=== PATIENT | female | born 1945 | race Caucasian/White ===

== ENCOUNTER 2022-08-14 22:08 | Outpatient (CLI) | payer MEDICARE, OTHER, SELFPAY ==
--- OUTSIDE RECORDS SUMMARY | 2022-08-16 13:22 | XMS_ITS | Encounter Summary ---
:1945 Author Organization [facility] Address [address] [place] [address] Care Team Providers Name Role Phone Elsewhere, Pcp Primary Care Provider Unavailable Encounter Details Date Type Department Care Team Description 02/15/2021 Clinical Communication Department of Marianela Braden, Dermatology in [place], [place] [address] [facility] [address] [place] [phone] Social History Tobacco Use Types Packs/Day Years [...] Visit Dermatology Marianela Braden M.D. [address] [place], [place] [phone] (Wo rk) documented as of this encounter Visit Diagnoses Not on filedocumented in this encounter Additional Health Concerns Assessment Noted Time PHQ-9 Depression Total Score: 1 12/02/2015 8:50 AM CRANKSHAFT STRAIGHTENER documented as of this encounter Care Teams Machine Boss Relationship Specialty Start Date End Date Elsewhere, Pcp PCP - General Family Medicine 01/30/19 documented as of this encounter
--- OUTSIDE RECORDS SUMMARY | 2022-08-16 13:22 | XMS_ITS | Encounter Summary ---
:1945 Author Organization [facility] Address [address] [place] [address] Care Team Providers Name Role Phone Elsewhere, Pcp Primary Care Provider Unavailable Reason for Referral Outpatient (Routine) - Authorized Specialty Diagnoses / Procedures Referred By Contact Refer red To Contact Dermatology Marianela Braden M.D . [facility] Region [address] [place], [place] [address] Referral ID Status Reason Start Date Expiration Date Visits V isits Requested Authorized [id number] Authorized 06/28/2022 06/27/2025 1 1 Reason for Visit Reason Comments Biopsy Shave left medial calf and r ight medial calf Outpatient (Routine) - Closed Specialty Diagnoses / Procedures Referred By Contact Refer red To Contact Dermatology Diagnoses Tumor Skin Uncertain Behavior Marianela Braden M.D. [facility] Procedures Dermatology misc minor procedure [address] [place] [address] Referral ID Status Reason Start Date Expiration Date Visits Requ ested Visits Authorized [id number] Closed 06/06/2022 06/06/2023 1 1 Encounter Details Date Type Department Care Team Description 06/28/2022 Procedure visit Department of Marianela Braden Tumor Skin Uncertain Dermatology in Tomás Hale M.D. [place], [place] [address] [phone] Social History Tobacco Use Types Packs/Day Years [...] of basal cell carcinoma involving the right protestant, status post Mohs surgery in 2013 doneelsewhere. She denies a personal history for melanoma. Her brother has had melanoma. She uses sunscreen. She denies any new or changing lesions today. MEDICAL HISTORY 1. Right protestant: History of basal cell carcinoma, status post [...] the patient by letter. Patient given pamphlet [id number]. Discussed the risks, benefits, alternatives, and the [...] CDT Left medial calf: Benign lesion letter [place] patient. Please send letter documented in this encounter Plan of Treatment Upcoming Encounters Date Type Specialty Care Team Description 09/27/2022 Office Visit Dermatology Marianela Braden M.D. [address] [place], [place] [phone] (Wo rk) Scheduled Referrals [...] Address City/State/ZIP Code Phon e Number [facility] - [address] [place], [place] [address] [place] [address] [facility] [address] documented in this encounter Visit Diagnoses Diagnosis Tumor Skin Uncertain Behavior documented in this encounter Additional Health Concerns Assessment Noted Time PHQ-9 Depression Total Score: 1 12/02/2015 8:50 AM MACHINE SOLE LEVELER documented as of this encounter Care Teams Naval Special Warfare Medic Relationship Specialty Start Date End Date Elsewhere, Pcp PCP - General Family Medicine 01/30/19 documented as of this encounter
--- OUTSIDE RECORDS SUMMARY | 2022-08-16 13:22 | XMS_ITS | Encounter Summary ---
:1945 Author Organization [facility] Address [address] [place] [address] Care Team Providers Name Role Phone Elsewhere, Pcp Primary Care Provider Unavailable Reason for Visit Reason Comments Follow-up left calf and f/u face lesio ns Outpatient (Routine) - Closed Specialty Diagnoses / Procedures Referred By Contact Refer red To Contact Dermatology Marianela Braden M.D . [facility] Region [address] [place] [address] Referral ID Status Reason Start Date Expiration Date Visits Requ ested Visits Authorized [id number] Closed 05/04/2020 05/04/2021 1 1 Encounter Details Date Type Department Care Team Description 08/18/2020 Office Visit Department of Marianela Braden, Keratosis Actinconstantino (Primary Dx); Dermatology in [place] Cordon Keratosis Seborrheic [place], [place] [address] [phone] Social History Tobacco Use Types Packs/Day Years [...] would like evaluated. MEDICAL HISTORY 1. Right confucianist: Basal cell carcinoma, status post Mohs surgery in June 2013 at [facility]. 2. Negative history for melanoma. 3. History of type 2 diabetes 4. Congestive heart failure ?? FAMILY HISTORY Brother with a history of melanoma ?? OBJECTIVE PHYSICAL EXAMINATION General: Awake, alert, in no acute distress, and with appropriate affect. Skin: Limited skin exam. Examination of the right confucianist reveals no clinical evidence for local recurrence [...] Visit Dermatology Marianela Braden M.D. [address] [place], [place] [phone] (Wo rk) documented as of this encounter Visit Diagnoses Diagnosis Keratosis Actinic - Primary Keratosis Seborrheic documented in this encounter Additional Health Concerns Assessment Noted Time PHQ-9 Depression Total Score: 1 12/02/2015 8:50 AM DIRECTOR OF RESEARCH CENTER documented as of this encounter Care Teams Endless Belt Finisher Relationship Specialty Start Date End Date Elsewhere, Pcp PCP - General Family Medicine 01/30/19 documented as of this encounter
--- OUTSIDE RECORDS SUMMARY | 2022-08-16 13:22 | XMS_ITS | Encounter Summary ---
:1945 Author Organization [facility] Address [address] [place] [address] Care Team Providers Name Role Phone Elsewhere, [...] Visit Dermatology Marianela Braden M.D. [address] [place], [place] [phone] (Wo rk) documented as [...] Depression Total Score: 1 12/02/2015 8:50 AM JAVA DEVELOPER ANALYST documented as of this encounter Care Teams Certified Histologic Technician Relationship Specialty Start Date End Date Elsewhere, Pcp PCP - General Family Medicine 01/30/19 documented as of this encounter
--- OUTSIDE RECORDS SUMMARY | 2022-08-16 13:22 | XMS_ITS | Encounter Summary ---
:1945 Author Organization [facility] Address [address] [place] [address] Care Team Providers Name Role Phone Elsewhere, Pcp Primary Care Provider Unavailable Reason for Visit Reason Comments Follow-up Appointment Request (Routine) - Closed Specialty Diagnoses / Procedures Referred By Contact Refer red To Contact Referral ID Status Reason Start Date Expiration Date Visits Requ ested Visits Authorized [id number] Closed 06/21/2021 06/21/2022 1 1 Encounter Details Date Type Department Care Team Description 09/13/2021 Office Visit Department of Marianela Braden, Keratosis Actinic (Primary Dx); Dermatology in [place], [place] [address] [phone] Social History Tobacco Use Types Packs/Day Years [...] of basal cell carcinoma involving the right oriental orthodox,??status post Mohs surgery in 2013 done elsewhere. She denies a personal history for melanoma. Her brother has had melanoma.She uses sunscreen. MEDICAL HISTORY 1. Right oriental orthodox:??History of basal cell carcinoma,??status post Mohs surgery [...] 1left upper cheek Examination of the right oriental orthodox reveals no evidence for recurrence of basal [...] diuretic. Follow up as needed. #5 Right oriental orthodox:??History of basal cell carcinoma,??status post Mohs surgery [...] Electronically Signed: nay Virk. 09/13/2021. 11:12 AM PONY TRIMMER. IMarianela M.D., personally performed the services described in this documentation. All medical record entries made by the scribe were at my direction and in my presence. I have reviewed the chart and discharge instructions (if applicable) and agree that the record reflects my personal performance and is accurate and complete. Marianela Braden M.D. TRIMMER documented in this encounter Plan of Treatment Upcoming Encounters Date Type Specialty Care Team Description 09/27/2022 Office Visit Dermatology Marianela Braden M.D. [address] [place] [phone] (Wo rk) documented as of this encounter Visit Diagnoses Diagnosis Keratosis Actinic - Primary Milia documented in this encounter Additional Health Concerns Assessment Noted Time PHQ-9 Depression Total Score: 1 12/02/2015 8:50 AM PONY TRIMMER documented as of this encounter Care Teams Property Field Adjuster Relationship Specialty Start Date End Date Elsewhere, Pcp PCP - General Family Medicine 01/30/19 documented as of this encounter
--- OUTSIDE RECORDS SUMMARY | 2022-08-16 13:22 | XMS_ITS | Encounter Summary ---
:1945 Author Organization [facility] Address [address] [place] [address] Care Team Providers Name Role Phone Elsewhere, Pcp Primary Care Provider Unavailable Reason for Visit Reason Comments Skin Check Appointment Request (Routine) - Closed Specialty Diagnoses / Procedures Referred By Contact Refer red To Contact Dermatology Referral ID Status Reason Start Date Expiration Date Visits Requ ested Visits Authorized [id number] Closed 11/24/2020 11/24/2021 1 1 Encounter Details Date Type Department Care Team Description 02/15/2021 Office Visit Department of Marianela Braden, Keratosis Actinic (Primary Dx); Dermatology in [place], [place] [address] [facility] Keratosis Seborrheic [address] [place] [phone] Social History Tobacco Use Types Packs/Day Years [...] of basal cell carcinoma involving the right hindu, status post Mohs surgery in June 2013 at [facility]. The patient denies a personal history [...] nose, itchy eyes MEDICAL HISTORY 1. Right hindu: Basal cell carcinoma, status post Mohs surgery in June 2013 at [facility]. 2. Negative history for melanoma. 3. [...] full exam today. Examination of the right hindu reveals no clinical evidence for local recurrence [...] skin cancer. ASSESSMENT / PLAN #1 Right hindu: Basal cell carcinoma, status post Mohs surgery in June 2013 at [facility], norecurrence Examination today reveals no clinical [...] Visit Dermatology Marianela Braden M.D. 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
--- OUTSIDE RECORDS SUMMARY | 2022-08-16 13:22 | XMS_ITS | Clinical Summary ---
:1945 Author Organization [facility] [place] [address] Care Team Providers Name Role Phone Ashutosh Gonzales MD Primary Care Provider [phone] Qiana Huntley RN Unavailable Karrie Duarte RD Unavailable Allergies Active Allergy Reactions Severity Noted Date Comments Cat Dander Other - Describe In 02/05/2018 Comment Field Losartan Other - Describe In 07/28/2022 Increase d Creatinine and Comment Field potassium Medications Medication Sig Dispensed Refills Start End Date Status Date Vit Take 1 tablet 90 Cap 3 Active A,C,Q-Loci-Voyqei twice daily 7 (PRESERVISION AREDS) [phone] cap medication order Calcium 0 Act 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 states no tabletIndications: l onger Vitamin B12 taking/N ot on deficiency sending facility l ist) omeprazole Take 1 Capsule 90 Capsule 3 07/28/20 Dis continued (PRILOSEC) 20 mg (20 mg) by mouth 2 (*Med Delayed-Release once daily com plete/Regime capsuleIndications [...] Encounters Date Type Specialty Care Team Description 08/16/2022 Ancillary Procedure Arrived 08/16/2022 Ancillary Procedure Arrived 08/16/2022 Office Visit Ashutosh Gonzales Fall (2021, MD Giovanna fractured nose, bruised and swollen kne tan); Concerns (Discu ss CT of head for bleedi ng on brain, US of lo wer left leg for DVT) 08/16/2022 Travel 08/15/2022 Telephone Ashutosh Gonzales Error-pleas e disregard MD Giovanna 08/15/2022 Telephone Ashutosh Gonzales Questions MD Giovanna 07/28/2022 Office Visit Ashutosh Gonzales Medicare AN SHELIA Heredia MD (subsequent) Vi sit (76 year old); Medi cation Management (Dis cuss fluvoxamine) 07/28/2022 Travel 06/06/2022 Refill Ashutosh Gonzales Refill Requ est MD Giovanna (Amlodipine Bes ylate 2.5 ) from Last 3 Months Immunizations Name Administration Dates Next Due AMB Influenza, IIV3 (Age >=3 years)(Flu 08/25/2010 Clinic Only) COVID-19 vaccine ([employer] 01/16/2021, 12/26/2020 30mcg/0.3mL) PF, MDV Influenza A (H1N1), Inactivated (Age >=3 10/28/2009 Years) Influenza Virus, Unspecified 07/21/2016 Influenza, High-dose Quadrivalent 08/03/2022, 07/24/2021 Inactivated Influenza, IIV3 (Age >=3 years) 08/05/2009, 08/11/2008, [...] Status Comments Brother Alive Father (Age 50) [place] Mother Alive Social History Tobacco Use Types [...] in contact with No / Unsu re 08/16/2022 9:42 AM CDT someone who was confirmed or suspected to have Coronavirus/COVID-19? Obstetrics History Para Term AB IAB SAB Ectopic Multiple Living Live Births 2 2 2 Date Outcome GA Total Labor/2nd/3rd Weight Sex Delivery Anes PTL Michelle A 1 A5 Name Clin Labor Para Para Last Filed Vital Signs Vital Sign Reading Time Taken Comments Blood Pressure 164/83 08/16/2022 9:48 AM CDT Pulse 88 08/16/2022 9:48 AM CDT Temperature 36.8 ??C (98.2 ??F) 02/04/2022 2:59 PM CDT Respiratory Rate 16 02/04/2022 2:59 PM CDT Oxygen Saturation 98% 08/16/2022 9:48 AM CDT Inhaled Oxygen Concentration - - Weight 90 kg (198 lb 6.4 oz) 08/16/2022 9:48 AM CDT Height 159.9 cm (5' 2.95) 07/28/2022 8:36 AM CDT Body Mass Index 35.2 07/28/2022 8:36 AM CDT Plan of Treatment Upcoming Encounters Date Type Specialty Care Team Description 09/07/2022 Orders Only Lab, [place] 09/07/2022 Office Visit Ashutosh Gonzales MD [address] [facility] [place] [id number] (Wo rk) 09/07/2022 Ancillary Procedure Health Maintenance Due Date Last Done Comments BMI (ht and wt on same day) for 07/28/2023 07/28/2022, 12/2021, age 18+ 02/04/2022, Additional history exists Depression screening for age 12+ 07/28/2023 07/28/2022, 01/2022, 03/07/2022, Additional history exists Medicare Wellness for age 65+ 07/28/2023 07/28/2022, 2021, 07/10/2020, Additional history exists Tetanus booster 08/07/2030 08/07/2020, 09/07/2010, 04/12/2004 Pneumococcal series for age 65+ Completed 10/08/2014, 07/2014, 05/04/2011, Additional history exists Zoster (shingles) series for age Completed 03/30/2018, 11/2017, 50+ 01/23/2014, Additional history exists DEXA/DXA scan for age 65+ Completed 06/20/2019, 06/17/2011 Hepatitis C screening for age Completed 07/10/2020 18-79 Tdap Completed 08/07/2020, 09/07/2010 COVID-19 vaccine series Completed 07/16/2022, 02/18/2022, 08/05/2021, Additional history exists Influenza for age 65+ Completed 08/03/2022, 07/24/2021, 07/10/2020, Additional history exists Procedures Procedure Name Priority Date/Time Associated Diagnosis Comme nts US VENOUS LOWER STAT 08/16/2022 11:08 AM Left leg swelling Results for this EXTREMITY LEFT CDT procedure are in the results section. from Last 3 Months Results US VENOUS LOWER EXTREMITY LEFT (08/16/2022 11:08 AM CDT) Anatomical Region Laterality Modality LEGS, LEG L, Abdomen Ultrasound Specimen (Source) Anatomical Collection Method Collection Time Re ceived Time Location / / Volume Laterality 08/16/2022 12:45 PM CDT Impressions 08/16/2022 12:45 PM CDT Normal venous ultrasound exam. No evidence of deep vein thrombosis within the left lower extremity. Dictated by Naren Doshi MD @ Aug 16 2 022 12:45PM (Electronically Signed) ?? Narrative 08/16/2022 12:45 PM CDT For Patients: ??As a result of the Cures Act, medical imaging exams and procedure report s are released immediately into your [facility] medical record. ??You may view this report before your referring provider. ??If you have questions, please contact your health care provider. INDICATION: Swelling COMPARISON: 12/04/19 TECHNIQUE: A compression venous ultrasound exam was performed of the left lower extremity using tolbert-scale imaging, color Doppler and spectral Doppler analysis. FINDINGS: Sonographic imaging of the left lower ex tremity demonstrates normal compressibility and color Doppler venous blood flow within the common femoral vein, deep femoral vein, and the proximal greater saphen ous vein. Within the thigh, the femoral vein is patent and compressible. At a lower level, the popliteal and posterior tibial veins also show normal compressibility and color Doppler venous blood flow. Limited imaging of the contralateral toribio in demonstrates a normal spectral waveform and color Doppler venous blood flow within the right common femoral vein. ?? Procedure Note Naren Doshi MD - 08/16/2022For matting of this note might be different from the original. For Patients: As a result of the Cures Act, medical imaging exams and procedure reports are released immediately into your electronic medical record. You may view this report before your referring provider. If you have questions, please contact [facility] health care provider. INDICATION: Swelling COMPARISON: 12/04/19 TECHNIQUE: A compression venous ultrasound exam was performed of the left lower extremity using tolbert-scale imaging, color Doppler and spectral Doppler analysis. FINDINGS: Sonographic imaging of the left lower ex tremity demonstrates normal compressibility and color Doppler venous blood flow within the common femoral vein, deep femoral vein, and the proximal greater saphenous vein. Within the thigh, the femoral vein is pa tent and compressible. At a lower level, the popliteal and posterior tibial veins also show normal compressibility and color Doppler venous blood flow. Limited imaging of the contralateral toribio in demonstrates a normal spectral waveform and color Doppler venous blood flow within the right common femoral vein. IMPRESSION: Normal venous ultrasound exam. No eviden ce of deep vein thrombosis within the left lower extremity. Dictated by Naren Doshi MD @ Aug 16 12:45PM (Electronically Signed) Ashutosh Gonzales MD US from Last 3 Months Insurance Payer Benefit Plan / Subscriber ID Effective Dates Phone Addre ss Type Group MEDICARE PART B MEDICARE PART B [id number] 2010-Present ATTN: CLAIMS - HB USE ONLY HB ONLY [id number] MEDICARE PART A MEDICARE PART A [id number] 2010-Present ATTN: CLAIMS - HB USE ONLY HB ONLY [address] [place] [address] MEDICARE - PB MEDICARE PB [id number] 2010-Present ATT N: CLAIMS USE ONLY ONLY [address] [place] [address] PREFERRED ONE AETNA [id number] 2018-Present [id number] [place] [address] Advance Directives Documents on File Type Date Recorded Patient Multiple Effect Evaporator Operator Explanati on Healthcare Directive 05/02/2013 12:00 AM ADVANCE DIRECTIVE Latest Code Status on File Code Status Date Activated Date Inactivated Comments Full Code 03/06/2014 7:28 PM 03/09/2014 5:42 PM Care Teams Senior Network Administrator Relationship Specialty Start Date End Date Ashutosh Gonzales, PCP - General Family Practice 07/21/[address] [address] Qiana Huntley, peoplesoft financial developer 12/31/20 [address] [place] [address] Machine Plate Stacker Anchorer 12/31/[address] [place] [address] [place] [phone]
--- OUTSIDE RECORDS SUMMARY | 2022-08-16 13:22 | XMS_ITS | Encounter Summary ---
:1945 Author Organization [facility] Address [address] [place] [address] Care Team Providers Name Role Phone Elsewhere, [...] Visit Dermatology Marianela Braden M.D. [address] [place], [place] [phone] (Wo rk) documented as [...] Depression Total Score: 1 12/02/2015 8:50 AM BACK END ENGINEER documented as of this encounter Care Teams Heat Reader Relationship Specialty Start Date End Date Elsewhere, Pcp PCP - General Family Medicine 01/30/19 documented as of this encounter
--- OUTSIDE RECORDS SUMMARY | 2022-08-16 13:22 | XMS_ITS | Encounter Summary ---
:1945 Author Organization [facility] Address [address] [place] [address] Care Team Providers Name Role Phone Elsewhere, [...] Visit Dermatology Marianela Braden M.D. [address] [place], [place] [phone] (Wo rk) documented as [...] Depression Total Score: 1 12/02/2015 8:50 AM MEDIA ARTS PROFESSOR documented as of this encounter Care Teams Systems Support Officer Relationship Specialty Start Date End Date Elsewhere, Pcp PCP - General Family Medicine 01/30/19 documented as of this encounter
--- OUTSIDE RECORDS SUMMARY | 2022-08-16 13:22 | XMS_ITS | Encounter Summary ---
:1945 Author Organization [facility] Address [address] [place] [address] Care Team Providers Name Role Phone Elsewhere, Pcp Primary Care Provider Unavailable Reason for Referral Outpatient (Routine) - Closed Specialty Diagnoses / Procedures Referred By Contact Refer red To Contact Dermatology Diagnoses Tumor Skin Uncertain Behavior Marianela Braden M.D. [facility] Region Procedures Dermatology misc minor procedure [address] [place] [address] Referral ID Status Reason Start Date Expiration Date Visits Requ ested Visits Authorized [id number] Closed 06/06/2022 06/06/2023 1 1 Reason for Visit Reason Comments Follow-up Encounter Details Date Type Department Care Team Description 06/06/2022 Office Visit Department of Marianela Braden, Tumor Skin Uncertain Behavior (Primary Dx); Dermatology in [place] Keratosis Actinic; [place], [place] [address] [facility] Nevi Multiple; [address] [place] [address] [place] [phone] Social History Tobacco Use Types Packs/Day Years [...] of basal cell carcinoma involving the right druze, status post Mohs surgery in 2013 done elsewhere. She denies a personal history for melanoma. Her brother has had melanoma. She uses sunscreen. She denies any new or changing lesions today. MEDICAL HISTORY 1. Right druze: History of basal cell carcinoma, status post [...] extremities. My scribe (Zofia) served as a director [employer] for the entirety of the exam. Examination of the right druze reveals no evidence for recurrence of basal [...] immediate return visit for reassessment. #5 Right druze: History of basal cell carcinoma, status post [...] By signing my name below, I, Zofia Shcmitz, attest that this documentation has been prepared [...] Visit Dermatology Marianela Braden M.D. [address] [place], [place] [phone] (Wo rk) Scheduled Orders [...] Depression Total Score: 1 12/02/2015 8:50 AM STILL CLEANER TUBE documented as of this encounter Care Teams Paddle Dyeing Machine Operator Relationship Specialty Start Date End Date Elsewhere, Pcp PCP - General Family Medicine 01/30/19 documented as of this encounter
--- OUTSIDE RECORDS SUMMARY | 2022-08-16 13:22 | XMS_ITS | Clinical Summary ---
:1945 Author Organization [facility] Address [address] [place] [address] Care Team Providers Name Role Phone Elsewhere, Pcp Primary Care Provider Unavailable Source Comments Patient records contain information from all sites at [facility]. For routine questions regarding patient records, call [phone] during business hours, M-F 8:00 AM - 5:00 PM Central Time. Record requests for emergency care only can be directed to [phone] at any time.[facility] Allergies Active Allergy Reactions Severity Noted Date [...] Visit Dermatology Marianela Braden M.D. [address] [place] [phone] (Wo rk) Health Maintenance Due Date [...] Organization Address City/State/ZIP Code Phon e Number [facility] NA Dermatopathology Consult (06/28/2022 9:49 AM CDT) [...] City/State/ZIP Code Phon e Number [facility] - [address] [place], [place] [address] [facility] [place] [address] [facility] [address] from Last 3 Months Insurance Payer Benefit Plan / Subscriber ID Effective Phone Address T ype Group Dates MEDICARE MEDICARE A AND B [id number] 2010-Prese [address] [place] [address] AETNA AETNA [id number] 2018-Prese [phone] [address] [place] [place] [id number] [place] [address] (Work) [phone] Care Teams Health Associate Relationship Specialty Start Date End Date Elsewhere, Pcp PCP - General Family Medicine 01/30/19
--- OUTSIDE RECORDS SUMMARY | 2022-08-16 13:22 | XMS_ITS | Encounter Summary ---
:1945 Author Organization [facility] Address [address] [place] [address] Care Team Providers Name Role Phone Elsewhere, [...] Visit Dermatology Marianela Braden M.D. [address] [place], [place] [phone] (Wo rk) documented as [...] Depression Total Score: 1 12/02/2015 8:50 AM ORTHOPTIST documented as of this encounter Care Teams Childcare Center Administrator Relationship Specialty Start Date End Date Elsewhere, Pcp PCP - General Family Medicine 01/30/19 documented as of this encounter
--- OUTSIDE RECORDS SUMMARY | 2022-08-16 13:23 | XMS_ITS | Encounter Summary ---
:1945 Author Organization [facility] Address [address] [place] [address] Care Team Providers Name Role Phone Naren Kruger M.D. Primary Care Provider Encounter Details Date Type Department Care Team Description 06/28/2017 Hospital Encounter HX [facility] Jairo Kruger M.D. [address] [place] [phone] (Wo yajaira) Social History Tobacco [...] Visit Dermatology Marianela Braden M.D. [address] [place], [place] [phone] (Wo rk) documented as of this encounter Visit Diagnoses Not on filedocumented in this encounter Additional Health Concerns Assessment Noted Time PHQ-9 Depression Total Score: 1 12/02/2015 8:50 AM CHIPPING MACHINE OPERATOR documented as of this encounter Care Teams Jockey Room Custodian Relationship Specialty Start Date End Date Naren Kruger M.D. PCP - General 04/20/17 06/28/[address] [place] [phone] documented as of this encounter
--- OUTSIDE RECORDS SUMMARY | 2022-08-16 13:23 | XMS_ITS | Encounter Summary ---
:1945 Author Organization [facility] Address [address] [place] [address] Care Team Providers Name Role Phone Elsewhere, Pcp Primary Care Provider Unavailable Reason for Visit Reason Comments Follow-up Encounter Details Date Type Department Care Team Description 03/04/2019 Office Visit Department of Marianela Braden, Tumor Skin Uncertain Behavior (Primary Dx); Dermatology in [place]; [place], [place] [address] [facility] Cancer Skin Basal Cell Personal History [address] [place] [phone] Social History Tobacco Use Types Packs/Day Years Used Date Smoking Tobacco: Unknown Smokeless Tobacco: Never Sex Assigned at Date Recorded Not on file documented as of this encounter Progress Notes Marainela Braden M.D. - 03/04/2019 11:00 AM CDT CHIEF COMPLAINT Lesion involving nasal tip HISTORY OF THE PRESENT ILLNESS Jessica Meek is a pleasant 73 y.o. female who follows up for evaluation of a rough lesion involving the nasal tip. She first noticed it in October 2018 and it has not bled. The patient has a history of basal cell carcinoma involving her right anabaptism status post Mohs surgery at [facility] in June 2013. She denies a personal history of melanoma. Her brother has a history of melanoma. PAST MEDICAL HISTORY 1. Basal cell carcinoma involving her right anabaptism status post Mohs surgery at [facility] in June 2013 FAMILY HISTORY Brother has history of melanoma PHYSICAL EXAM General: Awake, alert, in no acute distress, and with appropriate affect. Skin: Examination of the right anabaptism reveals excision scar with no evidence of recurrence of basal cell carcinoma. Just adjacent to this there is a seborrheic keratosis versus verrucal keratosis. Examination of the left anabaptism reveals actinic keratoses x 2. Examination of [...] the patient by letter. Patient given pamphlet [id number]. Discussed the risks, benefits, alternatives, and the necessity of other members of the healthcare team participating in the procedure. All questions answered and consent given. #2 Left anabaptism: Actinic keratosis x 2 CONSENT Discussed the [...] a total of 2 lesion(s) with two 29-88-ovrjno freeze-thaw cycles of liquid nitrogen cryothe rapy. The patient tolerated the procedure well. Aftercare instructions were provided in written and verbal form to the patient. Should any of these lesions recur, the patient should return for biopsy or further evaluation. Follow up in 1-2 months for recheck if these do not completely resolve. #3 Right anabaptism: History of basal cell carcinoma status post [...] - 03/04/2019 11:00 AM CDT Benign lesion. Bryant patient. please send letter documented in this encounter Plan of Treatment Upcoming Encounters Date Type Specialty Care Team Description 09/27/2022 Office Visit Dermatology Marianela Braden M.D. [address] [place], [place] [phone] (Wo rk) documented as of this encounter Procedures Procedure Name Priority Date/Time Associated Comments Diagnosis DERMATOPATHOLOGY CONSULT Routine 03/04/2019 11:11 Tumor Skin Results for this AM CDT Uncertain Behavior procedure are in the results section. documented in this encounter Results Dermatopathology Consult (03/04/2019 11:11 AM CDT) Component Value Ref Test Analysis Performed At [facility] Method Time Signature Gross Received in formalin labeled with the patient's name, 03/11/2019 [facility] Description: medical record number, and nasal tip is a 0.5 x 0.2 x 0.1 4:31 PM CDT LABORATORIES - cm pale [place] previously inked skin shave biopsy. No discrete [facility] lesion is grossly identified on the skin surface. The [place] specimen is submitted en toto in cassette A1. Grossed by [facility]. Report Fidelina N. 03/11/2019 [facility] electronically Neris Norton 4:31 PM CDT LABORATOR IES - signed by [facility] 03/11/2019 [facility] 4:31 PM CDT LABORATORIES - [facility] Interpetation FINAL DIAGNOSIS 03/11/2019 [facility] ??DermPath Consult Wet Tissue; Nasal tip, Skin shave 4:31 PM CDT LABORATORIES - biopsy: ??Dilated telangiectasias; no tumor identified after [facility] multiple tissue levels examined CAMPUS Specimen Anatomical Collection Method Collection Time Receive d Time (Source) Location / / Volume Laterality Tissue 03/04/2019 11:11 03/05/2019 7:42 AM CDT AM CDT Narrative This result has an attachment that is no t available. Marianela Braden M.D. LAB PATH DERM ORDERABLES Performing Organization Address City/State/ZIP Code Phon e Number [facility] LABORATORIES - [address] documented in this encounter Visit Diagnoses [...] Depression Total Score: 1 12/02/2015 8:50 AM CLAIM INVESTIGATOR documented as of this encounter Care Teams Maker Up Folding Relationship Specialty Start Date End Date Elsewhere, Pcp PCP - General Family Medicine 01/30/19 documented as of this encounter
--- OUTSIDE RECORDS SUMMARY | 2022-08-16 13:23 | XMS_ITS | Encounter Summary ---
:1945 Author Organization [facility] Address [address] [place] [address] Care Team Providers Name Role Phone Elsewhere, Pcp Primary Care Provider Unavailable Reason for Referral Outpatient (Routine) - Closed Specialty Diagnoses / Procedures Referred By Contact Refer red To Contact Dermatology Marianela Braden M.D . [facility] Region [address] [place] [address] Referral ID Status Reason Start Date Expiration Date Visits Requ ested Visits Authorized [id number] Closed 05/04/2020 05/04/2021 1 1 Scheduling Instructions Recheck lesion involving left lower leg Reason for Visit Reason Comments Follow-up Appointment Request (Routine) - Closed Specialty Diagnoses / Procedures Referred By Contact Refer red To Contact Dermatology Referral ID Status Reason Start Date Expiration Date Visits Requ ested Visits Authorized [id number] Closed 11/11/2019 11/10/2020 1 Encounter Details Date Type Department Care Team Description 05/04/2020 Office Visit Department of Marianela Braden, Keratosis Actinic (Primary Dx); Dermatology in [place] [facility] Seborrheic; [place], [place] [address] [facility] Verrucal Keratosis [address] [place] [phone] Social History Tobacco Use Types Packs/Day Years [...] carcinoma status post Mohs surgery fromher right religion in June 2013 at [facility]. She denies any history for melanoma. Her brother has had melanoma. Allergies Allergen Reactions ??? Cat Dander Other (see comments) Runny nose itchy eyes ??? Pollen Extracts Other (see comments) Runny nose, itchy eyes MEDICAL HISTORY Basal cell carcinoma involving right religion status post Mohs surgery in June 2013 at [facility]. Negative history for melanoma. FAMILY HISTORY Positive family history for melanoma with brother having had melanoma OBJECTIVE PHYSICAL EXAMINATION General: Awake, alert, in no acute distress, and with appropriate affect. Skin: Examination of her face and left lower leg done in clinic today. Examination of her right religion reveals no evidence for recurrence of her [...] Visit Dermatology Marianela Braden M.D. [address] [place] [phone] (Wo rk) Scheduled Referrals Name Type Priority Associated Order Schedule Diagnoses Dermatology office Outpatient Referral Routine Ex pected: visit (clinic) 08/04/2020 (Approximate), Expires: 05/04/2023 documented as of this encounter Visit Diagnoses Diagnosis Keratosis Actinic - Primary Keratosis Seborrheic Verrucal Keratosis documented in this encounter Additional Health Concerns Assessment Noted Time PHQ-9 Depression Total Score: 1 12/02/2015 8:50 AM FORGE HELPER documented as of this encounter Care Teams Architectural Drafter Relationship Specialty Start Date End Date Elsewhere, Pcp PCP - General Family Medicine 01/30/19 documented as of this encounter
--- OUTSIDE RECORDS SUMMARY | 2022-08-16 13:23 | XMS_ITS | Encounter Summary ---
:1945 Author Organization [facility] Address [address] [place] [address] Care Team Providers Name Role Phone Brandin Kruger M.D. Primary Care Provider Encounter Details Date Type Department Care Team Description 06/05/2017 Hospital Encounter [facility]X [facility]ED Jairo Kruger M.D. [address] [place] [address] 021 (Wo rk) Social History Tobacco Use [...] Kruger M.D. - 06/05/2017 2:13 PM CDT [id number] CHIEF COMPLAINT/REASON FOR VISIT Disequilibrium. The patient [...] KRUGER MD On: 06/05/2017 03:37 PM Source: [facility] MHSDOLBEYNONRADSYS Document Id: [id number] documented in this encounter Miscellaneous Notes Miscellaneous - Brandin Kruger M.D. - 06/05/2017 2:42 PM CDT Ambulatory Patient Summary [address] [id number] Visit Information Name: FRANCES HAGER [facility] Number: [id number] Current Date: 06/05/2017 14:42:39 Physicians [...] if you dont have one. Go to [email or web address] and click on Create Your Account. Then, follow the directions to complete the online form. Youll be asked for your [facility] number which you can find at the top of this document. Your Goals/Additional instructions: Source: [facility] POWERCHART Document Id: [id number] Miscellaneous - Brandin Kruger M.D. - 06/05/2017 2:42 PM CDT Ambulatory Discharge Medication List [address] [id number] Visit Information Name: FRANCES HAGER [facility] Number: [id number] Current Date: 06/05/2017 14:42:38 Attending [...] MD Signed On:05-JUN-2017 14:41:33 Additional Information: Source: [facility] POWERCHART Document Id: [id number] Miscellaneous - Jacque Agee C.M.A. - 06/05/2017 2:26 PM CDT Adult Fire Alarm Operator Intake/History Adult Fire Alarm Operator Intake/History Entered On: 06/05/2017 14:29 CDT Performed On: 06/05/2017 14:26 CDT by JACQUE AGEE [facility] Intake Chief Complaint : 1: balance follow [...] Mass Index : 38.55 kg/m2 JACQUE AGEE [facility] - 06/05/2017 14:26 CDT General Info Information Given By : Patient Languages : Persian Is Patient Female and 13-50 no hysterectomy : No JACQUE AGEE [facility] ASSISTANT - 06/05/2017 14:26 CDT Subjective Pain Symptoms : Yes JACQUE AGEE [facility] - 06/05/2017 14:26 CDT Pain Scale Pain Scale Verbal 0-10 : Open JACQUE AGEE [facility] - 06/05/2017 14:26 CDT Pain Pain Assessment Grid Pain 1 Location : Lower back Laterality : Bilateral JACQUE AGEE [facility] - 06/05/2017 14:26 CDT Dependent Habits Exposure to Tobacco Smoke : Other: former smoker Smoking Status : Former smoker Tobacco 2A : Yes Tobacco Use/Currently Using : No Tobacco Use/Last 30 Days : No Tobacco Use/Last 12 months : No JACQUE AGEE CMA - 06/05/2017 14:26 CDT Caffeine Use Grid Caffeine Use : Current Type : Coffee JACQUE AGEE [facility] - 06/05/2017 14:26 CDT Recreational Drug Use Grid Drug Use : None JACQUE AGEE CMA - 06/05/2017 14:26 CDT [facility] POWERCHART Document Id: [id number] CDT!44 documented in this encounter Plan of Treatment Upcoming Encounters Date Type Specialty Care Team Description 09/27/2022 Office Visit Dermatology Marianela Braden M.D. [address] [place], [place] [phone] (Wo rk) documented as of this encounter Visit Diagnoses Not on filedocumented in this encounter Additional Health Concerns Assessment Noted Time PHQ-9 Depression Total Score: 1 12/02/2015 8:50 AM BLOWER ROOM ATTENDANT documented as of this encounter Care Teams 3D Artist Relationship Specialty Start Date End Date Brandin Kruger M.D. PCP - General 04/20/17 06/28/[address] [place] [phone] documented as of this encounter
--- OUTSIDE RECORDS SUMMARY | 2022-08-16 13:23 | XMS_ITS | Encounter Summary ---
:1945 Author Organization [facility] Address [address] [place] [address] Care Team Providers Name Role Phone Elsewhere, [...] Visit Dermatology Marianela Braden M.D. [address] [place], [place] [phone] (Wo rk) documented as [...] Depression Total Score: 1 12/02/2015 8:50 AM PEDIATRIC PATHOLOGIST documented as of this encounter Care Teams Instrumentation Designer Relationship Specialty Start Date End Date Elsewhere, Pcp PCP - General Family Medicine 01/30/19 documented as of this encounter
--- OUTSIDE RECORDS SUMMARY | 2022-08-16 13:23 | XMS_ITS | Encounter Summary ---
:1945 Author Organization [facility] Address [address] [place] [address] Care Team Providers Name Role Phone Naren Kruger M.D. Primary Care Provider Encounter Details Date Type Department Care Team Description 06/28/2017 Hospital Encounter HX [facility] LAB Jairo Kruger M.D. [address] [place] [phone] (Wo yajaira) Social History Tobacco [...] Visit Dermatology Marianela Braden M.D. [address] [place], [place] [phone] (Wo rk) documented as of this encounter Visit Diagnoses Not on filedocumented in this encounter Additional Health Concerns Assessment Noted Time PHQ-9 Depression Total Score: 1 12/02/2015 8:50 AM RAND BUTTER documented as of this encounter Care Teams Certified Neurodiagnostic Technologist Relationship Specialty Start Date End Date Naren Kruger M.D. PCP - General 04/20/17 06/28/[address] [place] [address] documented as of this encounter
--- OUTSIDE RECORDS SUMMARY | 2022-08-16 13:23 | XMS_ITS | Encounter Summary ---
:1945 Author Organization [facility] Address [address] [place] [address] Care Team Providers Name Role Phone Elsewhere, Pcp Primary Care Provider Unavailable Reason for Referral Outpatient (Routine) - Closed Specialty Diagnoses / Procedures Referred By Contact Refer red To Contact Dermatology Marianela Braden M.D . [facility] Region [address] [place] [address] Referral ID Status Reason Start Date Expiration Date Visits Requ ested Visits Authorized [id number] Closed 07/29/2019 07/28/2020 1 1 Scheduling Instructions Recheck skin lesions in 3 months Reason for Visit Reason Comments Follow-up Appointment Request (Routine) - Closed Specialty Diagnoses / Procedures Referred By Contact Refer red To Contact Dermatology Referral ID Status Reason Start Date Expiration Date Visits Requ ested Visits Authorized [id number] Closed 04/30/2019 04/29/2020 1 Encounter Details Date Type Department Care Team Description 07/29/2019 Office Visit Department of Marianela Braden Nevi Multi ple (Primary Dx); Dermatology in [place]; [place], [place] [address] [facility] Keratosis Seborrheic; [address] [place] [address] Keratosis Seborrheic Inflame d; [place] [address] Cancer Skin Basal Cell Personal History [phone] [...] liquid nitrogen cryotherapy by Dr. Fletcher at [facility] on 05/15/19. She says this has resolved since then. The patient is also here today for a full skin cancer screening examination. When last seen by me on03/04/19, she had a shave biopsy of a lesion involving the distal nasal tip which came back as dilated telangiectasias. Back in January 2016, she also had a biopsy done at the [facility] for a lesion involving the left lower leg which was a verrucal keratosis. The patient has??a history of??basal cell carcinoma involving her right restoration status post Mohs surgery at [facility] in June 2013. She denies a personal history of melanoma. Her brother has a history of melanoma. Allergies Allergen Reactions ??? Cat Dander Other (see comments) Runny nose itchy eyes ??? Pollen Extracts Other (see comments) Runny nose, itchy eyes PAST MEDICAL HISTORY 1. Basal cell carcinoma involving right restoration, status post Mohs surgery at [facility] in June2013 2. Negative for melanoma [...] for actinic keratosis. Examination of the right restoration reveals no evidence for recurrence of basal [...] a return visit for reassessment. #5 Right restoration: History of basal cell carcinoma, status post Mohs surgery at [facility] in June 2013 No evidence for [...] Visit Dermatology Marianela Braden M.D. [address] [place], [place] [phone] (Wo rk) Scheduled Referrals [...] Depression Total Score: 1 12/02/2015 8:50 AM TOW FEEDER documented as of this encounter Care Teams Special Education Associate Relationship Specialty Start Date End Date Elsewhere, Pcp PCP - General Family Medicine 01/30/19 documented as of this encounter
--- OUTSIDE RECORDS SUMMARY | 2022-08-16 13:23 | XMS_ITS | Encounter Summary ---
:1945 Author Organization [facility] Address [address] [place] [address] Care Team Providers Name Role Phone Naren Kruger M.D. Primary Care Provider Reason for Referral Outpatient (Routine) - Closed Specialty Diagnoses / Procedures Referred By Contact Refer red To Contact Neurology Naren Kruger M .D. [address] [place] [address] Referral ID Status Reason Start Date Expiration Date Visits V isits Requested Authorized [id number] Closed Specialty 09/05/2017 03/04/2018 1 1 Services Required Encounter Details Date Type Department Care Team Description 09/05/2017 Orders Only Department of [facility] Naren Kruger , Internal Medicine in [place], [place] [address] [place] [address] [place] [address] [phone] Social History Tobacco Use Types Packs/Day Years Used Date Smoking Tobacco: Former Sex Assigned at Date Recorded Not on file documented as of this encounter Plan of Treatment Upcoming Encounters Date Type Specialty Care Team Description 09/27/2022 Office Visit Dermatology Marianela Braden M.D. [address] [place], [place] [phone] (Wo rk) Scheduled Referrals Name Type Priority Associated Diagnoses Order S chedule Neurology - General Outpatient Referral Routine E xpected: consult (clinic) 08/30/2017 (Approximate), Expires: 09/03/2022 documented as of this encounter Visit Diagnoses Not on filedocumented in this encounter Additional Health Concerns Assessment Noted Time PHQ-9 Depression Total Score: 1 12/02/2015 8:50 AM ORACLE TECHNICAL DEVELOPER documented as of this encounter Care Teams Wire Harness Design Engineer Relationship Specialty Start Date End Date Naren Kruger M.D. PCP - General 04/20/17 06/28/[address] [place] [phone] documented as of this encounter
--- OUTSIDE RECORDS SUMMARY | 2022-08-16 13:23 | XMS_ITS | Encounter Summary ---
:1945 Author Organization [facility] Address [address] [place] [address] Care Team Providers Name Role Phone Brandin Kruger M.D. Primary Care Provider Encounter Details Date Type Department Care Team Description 08/09/2017 Hospital Encounter HX [facility] INTERNMED Jairo Kruger M.D. [address] [place] [address] (Wo rk) Social History Tobacco Use [...] Kruger M.D. - 08/09/2017 3:12 PM CDT [id number] CHIEF COMPLAINT/REASON FOR VISIT Obsessive-compulsive disorder out [...] appointment with psychiatry in a week in [place] and they can go further into what [...] KRUGER MD On: 08/10/2017 06:52 AM Source: [facility] MHSDOLBEYNONRADSYS Document Id: [id number] documented in this encounter Miscellaneous Notes Miscellaneous - Brandin Kruger M.D. - 08/09/2017 4:29 PM CDT Ambulatory Patient Summary [address], [place] [id number] Visit Information Name: FRANCES HAGER [facility] Number: [id number] Current Date: 08/09/2017 16:29:15 Physicians [...] and 2 at bedtime New Routed to [address] [address] glipiZIDE (glipiZIDE 5 mg oral tablet) See [...] if you dont have one. Go to [email or web address] and click on Create Your Account. Then, follow the directions to complete the online form. Youll be asked for your [facility] number which you can find at the top of this document. Your Goals/Additional instructions: Source: [facility] POWER[facility] Document Id: [id number] Miscellaneous - Brandin Kruger M.D. - 08/09/2017 4:29 PM CDT Ambulatory Discharge Medication List [address] [id number] Visit Information Name: FRANCES HAGER [facility] Number: [id number] Current Date: 08/09/2017 16:29:15 Attending [...] and 2 at bedtime New Routed to [address] [id number] glipiZIDE (glipiZIDE 5 mg oral tablet) See [...] MD Signed On:09-AUG-2017 16:28:31 Additional Information: Source: [facility] POWERCHART Document Id: [id number] Miscellaneous - Marisa Grullon L.P.N. - 08/09/2017 3:40 PM CDT Adult Management Trainer Intake/History Adult Management Trainer Intake/History Entered On: 08/09/2017 15:42 CDT Performed On: 08/09/2017 15:40 CDT by MARISA GRULLON LPN Intake Chief Complaint : 1. Referral to [facility] Daniel Temperature Core : 36.3 DegC(Converted [...] Communication Mode : Verbal, Written Languages : Faroese Is Patient Female and 13-50 no hysterectomy [...] : Current Type : Coffee MARISA GRULLON LINE PILOT - 08/09/2017 15:40 CDT Recreational Drug Use Grid Drug Use : None MARISA GRULLON LINE PILOT - 08/09/2017 15:40 CDT Source: [facility] [employer]terventionCHART Document Id: [id number] CDT!43 documented in this encounter Plan of Treatment Upcoming Encounters Date Type Specialty Care Team Description 09/27/2022 Office Visit Dermatology Marianela Braden M.D. [address] [place], [place] [phone] (Wo rk) documented as of this encounter Visit Diagnoses Not on filedocumented in this encounter Additional Health Concerns Assessment Noted Time PHQ-9 Depression Total Score: 1 12/02/2015 8:50 AM ART SPECIALIST documented as of this encounter Care Teams Railcar Mechanic Relationship Specialty Start Date End Date Brandin Kruger M.D. PCP - General 04/20/17 06/28/[address] [place] [address] documented as of this encounter
--- OUTSIDE RECORDS SUMMARY | 2022-08-16 13:23 | XMS_ITS | Encounter Summary ---
:1945 Author Organization [facility] Address [address] [place] [address] Care Team Providers Name Role Phone Naren Kruger M.D. Primary Care Provider Reason for Visit Reason Onset Date Comments Medicare Annual Wellness Visit Initial 03/22/2018 Encounter Details Date Type Department Care Team Description 03/22/2018 Clinical Communication Department of [place] Annual Community Internal L, RLoriNLori Wellness Visit Medicine in [address] [address] [place], [place] [phone] [phone] (Work) [phone] Social History Tobacco Use Types Packs/Day Years [...] Dermatology Marianela Braden M.D. [address] [place], [place] [phone] (Wo rk) documented as of this encounter Visit Diagnoses Diagnosis Annual Medicare Examination Return - [place] sotelo documented in this encounter Additional Health Concerns Assessment Noted Time PHQ-9 Depression Total Score: 1 12/02/2015 8:50 AM HEEL STAINER documented as of this encounter Care Teams Digital Cartographic Technician Relationship Specialty Start Date End Date Naren Kruger M.D. PCP - General 04/20/17 06/28/[address] [place] [phone] documented as of this encounter
--- OUTSIDE RECORDS SUMMARY | 2022-08-16 13:23 | XMS_ITS | Encounter Summary ---
:1945 Author Organization [facility] Address [address] [place] [address] Care Team Providers Name Role Phone Naren Kruger M.D. Primary Care Provider Encounter Details Date Type Department Care Team Description 10/17/2017 Orders Only Department of Naren Kruger Diabetes Me llitus Type [facility] Internal Neris Bianchi 2 (HCC) (Primary Dx) Medicine in [address] 300 [facility] [address] [place], [place] [phone] (Work) [phone] Social History Tobacco Use Types Packs/Day Years Used Date Smoking Tobacco: Former Sex Assigned at Date Recorded Not on file documented as of this encounter Plan of Treatment Upcoming Encounters Date Type Specialty Care Team Description 09/27/2022 Office Visit Dermatology Marianela Braden M.D. [address] [place], [place] [phone] (Wo rk) documented as of this encounter Visit Diagnoses Diagnosis Diabetes Mellitus Type 2 (HCC) - Primary documented in this encounter Additional Health Concerns Assessment Noted Time PHQ-9 Depression Total Score: 1 12/02/2015 8:50 AM CATHOLIC PRIEST documented as of this encounter Care Teams Edge Sander Relationship Specialty Start Date End Date Naren Kruger M.D. PCP - General 04/20/17 06/28/18 [address] [place] [address] documented as of this encounter
--- OUTSIDE RECORDS SUMMARY | 2022-08-16 13:23 | XMS_ITS | Encounter Summary ---
:1945 Author Organization [facility] Address [address] [place] [address] Care Team Providers Name Role Phone Naren Kruger M.D. Primary Care Provider Encounter Details Date Type Department Care Team Description 05/30/2018 Clinical Communication Department of Naren Thomas Owatonna M, M.D. [facility], in [address] [address] [place], [place] [phone] (Work) [phone] Social History Tobacco Use Types Packs/Day Years Used Date Smoking Tobacco: Unknown Sex Assigned at Date Recorded Not on file documented as of this encounter Plan of Treatment Upcoming Encounters Date Type Specialty Care Team Description 09/27/2022 Office Visit Dermatology Marianela Braden M.D. [address] [place], [place] [phone] (Wo rk) documented as of this encounter Visit Diagnoses Not on filedocumented in this encounter Additional Health Concerns Assessment Noted Time PHQ-9 Depression Total Score: 1 12/02/2015 8:50 AM SHIPPING AND RECEIVING COORDINATOR documented as of this encounter Care Teams Environmental Remediation Engineer Relationship Specialty Start Date End Date Naren Kruger M.D. PCP - General 04/20/17 06/28/[address] [place] [address] documented as of this encounter
--- OUTSIDE RECORDS SUMMARY | 2022-08-16 13:23 | XMS_ITS | Encounter Summary ---
:1945 Author Organization [facility] Address [address] [place] [address] Care Team Providers Name Role Phone Unavailable Primary Care Provider Unavailable Encounter Details Date Type Department Care Team Description 03/31/2017 Hospital Encounter HX [facility] Brandin Ervin M.D. [address] [place] [address]21 (Wo rk) Social History Tobacco Use [...] 06, 2017 14:24:40 CDT Edilberto calling from [facility] in [facility] Medicare only pays for a walker every 5 years.Would like to speak to nurse. pLease call [phone] Addendum by IRVIN SMITH LPN on June [...] language for Healthcare discussion: _ Was an spanish medical interpreter used for this call? _ Other [...] back cell phone number ( ) Source[facility] P[facility] Document Id: [id number] Telephone Encounter - Conversion, Historical Provider Ser - 03/15/2017 8:57 AM CDT *Phone Message Document Contains Addenda Addendum by IRVIN SMITH LPN on March 15, 2017 10:01:40 CDT patient called scheduled to be seen tomarrow From: KATALINA DILLARD ([facility] Field Services Analyst) To: GRZEGORZ Kruger Nurse; Sent: 03/15/2017 08:57:01 [...] if you couldplease call her back at [phone] so if she needs to come early [...] back cell phone number ( ) Source: [facility] [employer] Document Id: [id number] documented in this encounter Plan of Treatment Upcoming Encounters Date Type Specialty Care Team Description 09/27/2022 Office Visit Dermatology Marianela Braden M.D. [address] [place] [phone] (Wo rk) documented as of this [...] Depression Total Score: 1 12/02/2015 8:50 AM HOPPER FEEDER documented as of this encounter
--- OUTSIDE RECORDS SUMMARY | 2022-08-16 13:23 | XMS_ITS | Encounter Summary ---
:1945 Author Organization [facility] Address [address] [place] [address] Care Team Providers Name Role Phone Brandin Kruger M.D. Primary Care Provider Encounter Details Date Type Department Care Team Description 04/25/2017 Hospital Encounter HX [facility] INTERNMED Jairo Kruger M.D. [address] [place] [address] (Wo rk) Social History Tobacco Use [...] Kruger M.D. - 04/25/2017 8:12 AM CDT [id number] CHIEF COMPLAINT/REASON FOR VISIT Congested ears, mild [...] KRUGER MD On: 04/26/2017 07:28 AM Source: [facility] MHSDOLBEYNONRADSYS Document Id: [id number] documented in this encounter Miscellaneous Notes Telephone [...] back cell phone number ( ) Source: [facility] POWERCHART Document Id: [id number] Miscellaneous - Brandin Kruger M.D. - 04/26/2017 [...] language for Healthcare discussion: _ Was an medical policy specialist used for this call? _ Other ( [...] 6.7 % A1C ( - <=5.6) Source: [facility] POWERCHART Document Id: [id number] Electronically signed by Antonette, [facility] Skill Training Program Coordinator [id number] at 05/10/2017 11:14 AM CDT Miscellaneous - Brandin Kruger M.D. - 04/25/2017 8:42 AM CDT Ambulatory Patient Summary [address] [id number] Visit Information Name: FRANCES HAGER [facility] Number: [id number] Current Date: 04/25/2017 08:42:27 Physicians [...] if you dont have one. Go to [email or web address] and click on Create Your Account. Then, follow the directions to complete the online form. Youll be asked for your [facility] number which you can find at the top of this document. Your Goals/Additional instructions: Source: [facility] POWERCHART Document Id: [id number] Miscellaneous - Brandin Kruger M.D. - 04/25/2017 8:42 AM CDT Ambulatory Discharge Medication List [address] [id number] Visit Information Name: FRANCES HAGER [facility] Number: [id number] Current Date: 04/25/2017 08:42:26 Attending [...] Additional Information: Source: [facility] POWERCHART Document Id: [id number] Jimmie - Brandin Kruger M.D. - 04/25/2017 8:25 AM CDT Quality Measures Quality Measures Entered On: 04/25/2017 8:26 CDT Performed On: 04/25/2017 8:25 CDT by BRANDIN KRUGER MD Diabetes Date of Last Foot Exam : 04/25/2017 CDT Date of Last Diabetes Education : 04/25/2017 CDT BRANDIN KRUGER MD - 04/25/2017 8:25 CDT Source: [facility] Document Id: [id number] CDT!4 Jimmie - Irvin Salinas L.P.N. - 04/25/2017 8:24 AM CDT Adult Crime Scene Specialist Intake/History Adult Crime Scene Specialist Intake/History Entered On: 04/25/2017 8:27 CDT Performed [...] Information Given By : Patient Languages : Austrian Is Patient Female and 13-50 no hysterectomy [...] 12 months : No SALINASIRVIN CHAMPION RAE SENIOR APPLICATION SECURITY CONSULTANT - 04/25/2017 8:24 CDT Caffeine Use Grid Caffeine Use : Current Type : Coffee IRVIN SALINAS [facility] - 04/25/2017 8:24 CDT Recreational Drug Use Grid Drug Use : None IRVIN SALINAS SENIOR APPLICATION SECURITY CONSULTANT - 04/25/2017 8:24 CDT Source: [facility] POWERCHART Document Id: [id number] CDT!35 documented in this encounter Plan of Treatment Upcoming Encounters Date Type Specialty Care Team Description 09/27/2022 Office Visit Dermatology Marianela Braden M.D. [address] [place] [phone] (Wo rk) documented as of this [...] 15 MMOLL POWERCHART HXeGFR (MDRD) >60 >=60 [id number] POWERCHART eGFR Black/ >60 >=60 [id number] POWERCHART Glucose 92 70 - 139 MGDL [...] M.D. LAB BLOOD ADD-ON Performing Organization Address City/[facility] Code Phon e Number POWERCHART documented in this encounter Visit Diagnoses Not on filedocumented in this encounter Additional Health Concerns Assessment Noted Time PHQ-9 Depression Total Score: 1 12/02/2015 8:50 AM SHAREPOINT ANALYST documented as of this encounter Care Teams Alarm Installation Technician Relationship Specialty Start Date End Date Brandin Kruger M.D. PCP - General 04/20/17 06/28/[address] [place] [address] [place] [address] documented as of this encounter
--- OUTSIDE RECORDS SUMMARY | 2022-08-16 13:23 | XMS_ITS | Encounter Summary ---
:1945 Author Organization [facility] Address [address] [place] [address] Care Team Providers Name Role Phone Naren Kruger M.D. Primary Care Provider Encounter Details Date Type Department Care Team Description 04/30/2018 Orders Only Department of Naren Kruger Diabetes Me llitus Type 2 (HCC) (Primary Dx); [facility] Arian Bianchi M.D. Screening Mammogram Average Risk Patient Medicine in [address] 300 [facility] [address] [place], [place] [phone] (Work) [phone] Social History Tobacco Use Types Packs/Day Years Used Date Smoking Tobacco: Unknown Sex Assigned at Date Recorded Not on file documented as of this encounter Plan of Treatment Upcoming Encounters Date Type Specialty Care Team Description 09/27/2022 Office Visit Dermatology Marianela Braden M.D. [address] [place], [place] [phone] (Wo rk) documented as of this encounter Visit Diagnoses Diagnosis Diabetes Mellitus Type 2 (HCC) - Primary Screening Mammogram Average Risk Patient documented in this encounter Additional Health Concerns Assessment Noted Time PHQ-9 Depression Total Score: 1 12/02/2015 8:50 AM SENIOR DATA MODELER documented as of this encounter Care Teams Ramp Service Agent Relationship Specialty Start Date End Date Naren Kruger M.D. PCP - General 04/20/17 06/28/18 [address] [place] [address] documented as of this encounter
--- OUTSIDE RECORDS SUMMARY | 2022-08-16 13:23 | XMS_ITS | Encounter Summary ---
:1945 Author Organization [facility] Address [address] [place] [address] Care Team Providers Name Role Phone Naren Kruger M.D. Primary Care Provider Encounter Details Date Type Department Care Team Description 06/28/2017 Hospital Encounter HX [facility] LAB Jairo Kruger M.D. [address] [place] [phone] (Wo yajaira) Social History Tobacco [...] Visit Dermatology Marianela Braden M.D. [address] [place], [place] [phone] (Wo rk) documented as of this encounter Visit Diagnoses Not on filedocumented in this encounter Additional Health Concerns Assessment Noted Time PHQ-9 Depression Total Score: 1 12/02/2015 8:50 AM BOAT ASSEMBLER documented as of this encounter Care Teams Refrigeration Brazer/Solderer Relationship Specialty Start Date End Date Naren Kruger M.D. PCP - General 04/20/17 06/28/[address] [place] [address] documented as of this encounter
--- OUTSIDE RECORDS SUMMARY | 2022-08-16 13:23 | XMS_ITS | Encounter Summary ---
:1945 [address] [facility] Address [address] [place] [address] Care Team Providers Name Role Phone Dary Newman APRN, C.N.P. Primary Care Provider [phone] Reason for Visit Reason Comments Skin Check Encounter Details Date Type Department Care Team Description 07/31/2018 Office Visit Department of Marianela Braden, Keratosis Actinic (Primary Dx); Dermatology in [place] Cancer Skin Basal Cell Personal History; [place], [place] [address] [facility] [place] Multiple; [address] [place] [phone] Social History Tobacco Use Types Packs/Day [...] I last saw the patient at the [facility] on 02/13/18. The patient has a history of basal cell carcinoma involving her right sabianism status post Mohs surgery at [facility] in June 2013. She also has a [...] HISTORY Basal cell carcinoma involving her right sabianism status post Mohs surgery at [facility] in June 2013 FAMILY HISTORY Brother has [...] a few seborrheic keratoses. Examinationof the right sabianism/forehead reveals a scar with no evidence for [...] for skin cancer today. IMPRESSION/REPORT/PLAN #1 Right sabianism: History of basal cell carcinoma status post Mohs surgery at [facility] in June 2013 No evidence for recurrence [...] a total of 1 lesion with two 77-60-ohobgo freeze-thaw cycles of liquid nitrogen cryotherapy.The patient [...] Dermatology Marianela Braden M.D. 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 PCP - General Internal Medicine 06/29/18 01/29/[address] [place] [phone] documented as of this encounter
--- OUTSIDE RECORDS SUMMARY | 2022-08-16 13:23 | XMS_ITS | Encounter Summary ---
:1945 Author Organization [facility] Address [address] [place] [address] Care Team Providers Name Role Phone Elsewhere, Pcp Primary Care Provider Unavailable Reason for Visit Appointment Request (Routine) - Closed Specialty Diagnoses / Procedures Referred By Contact Refer red To Contact Dermatology Referral ID Status Reason Start Date Expiration Date Visits Requ ested Visits Authorized [id number] Closed 05/06/2019 05/05/2020 1 Encounter Details Date Type Department Care Team Description 05/15/2019 Office Visit Department of Mehrdad Fletcher Acti nate Dermatology in Fred Blanco M.D. (Primary Dx) [facility] ta [address] [facility] [address] [place] [phone] Social History Tobacco Use Types Packs/Day Years [...] history of??basal cell carcinoma involving her right bahai status post Mohs surgery at [facility] in June 2013. She denies a [...] 1. Basal cell carcinoma involving her right bahai status post Mohs surgery at [facility] in June 2013 ?? FAMILY HISTORY Brother [...] Visit Dermatology Marianela Braden M.D. [address] [place] [phone] (Wo rk) documented as of this encounter Visit Diagnoses Diagnosis Keratosis Actinic - Primary documented in this encounter Additional Health Concerns Assessment Noted Time PHQ-9 Depression Total Score: 1 12/02/2015 8:50 AM MARINE MECHANIC documented as of this encounter Care Teams Web Services Professional Relationship Specialty Start Date End Date Elsewhere, Pcp PCP - General Family Medicine 01/30/19 documented as of this encounter
--- OUTSIDE RECORDS SUMMARY | 2022-08-16 13:23 | XMS_ITS | Encounter Summary ---
:1945 Author Organization [facility] Address [address] [place] [address] Care Team Providers Name Role Phone Dary Newman APRN C.N.P. Primary Care Provider Encounter Details Date Type Department Care Team Description 10/08/2018 Orders Only Department of Dary Newman V., Diabetes Mellitus Type Community Internal FREDIS C.N.P. 2 (HCC) (Primary Dx) Medicine in [address] 300 [facility] [address] [place], [place] [phone] [phone] (Work) [phone] Social History Tobacco Use Types Packs/Day Years Used Date Smoking Tobacco: Unknown Smokeless Tobacco: Never Sex Assigned at Date Recorded Not on file documented as of this encounter Plan of Treatment Upcoming Encounters Date Type Specialty Care Team Description 09/27/2022 Office Visit Dermatology Marianela Braden M.D. [address] [place], [place] [phone] (Wo rk) documented as of this encounter Visit Diagnoses Diagnosis Diabetes Mellitus Type 2 (HCC) - Primary documented in this encounter Additional Health Concerns Assessment Noted Time PHQ-9 Depression Total Score: 1 12/02/2015 8:50 AM DRY KILN OPERATOR HELPER documented as of this encounter Care Teams Swim Coach Relationship Specialty Start Date End Date Dary Newman APRN, C.N.P. PCP - General Internal Medicine 06/29/18 01/29/19 [address] [place] [phone] documented as of this encounter
--- OUTSIDE RECORDS SUMMARY | 2022-08-16 13:23 | XMS_ITS | Encounter Summary ---
:1945 Author Organization [facility] Address [address] [place] [address] Care Team Providers Name Role Phone Naren Kruger M.D. Primary Care Provider Encounter Details Date Type Department Care Team Description 06/28/2017 Hospital Encounter HX NO MAPPING Christie Moffett, WELT SOLE LAYER, C.N.P. [address] [phone] Naren Kruger M.D. [address] [place] [address] Social History Tobacco Use Types Packs/Day Years [...] Coding Summary-Paper Based CODING DATE: 07/11/2017 FINAL [facility] STATUS: * Discharged to Home or [...] SAUCEDA Date Saved: 07/11/2017 12:51 pm Source: [employer] Document Id: [id number] documented in this encounter Plan of Treatment Upcoming Encounters Date Type Specialty Care Team Description 09/27/2022 Office Visit Dermatology Marianela Braden M.D. [address] [place], [place] [phone] (Wo rk) documented as of this encounter Visit Diagnoses Not on filedocumented in this encounter Additional Health Concerns Assessment Noted Time PHQ-9 Depression Total Score: 1 12/02/2015 8:50 AM CHIEF ENGINEER RESEARCH documented as of this encounter Care Teams Imcu Nurse Relationship Specialty Start Date End Date Naren Kruger M.D. PCP - General 04/20/17 06/28/[address] [place] [address] documented as of this encounter
--- OUTSIDE RECORDS SUMMARY | 2022-08-16 13:23 | XMS_ITS | Encounter Summary ---
:1945 Author Organization [facility] Address [address] [place] [address] Care Team Providers Name Role Phone Elsewhere, Pcp Primary Care Provider Unavailable Reason for Visit Reason Comments Follow-up Outpatient (Routine) - Closed Specialty Diagnoses / Procedures Referred By Contact Refer red To Contact Dermatology Marianela Braden M.D . [facility] Region [address] [place] [address] Referral ID Status Reason Start Date Expiration Date Visits Requ ested Visits Authorized [id number] Closed 07/29/2019 07/28/2020 1 1 Encounter Details Date Type Department Care Team Description 11/11/2019 Office Visit Department of Marianela Braden, Keratosis Actinic (Primary Dx); Dermatology in [place] Keratosis Seborrheic; [place], [place] [address] [facility] Verrucal Keratosis; [address] [place] [address] Cancer Skin Basal [place] [phone] Social History Tobacco Use Types Packs/Day [...] has??a history of??basalcell carcinoma involving the right gnosticism, status post Mohs surgery in June 2013 at [facility]. She denies a personal history of melanoma. Her brother has had melanoma. The patient has no other concerns today. Allergies Allergen Reactions ??? Cat Dander Other (see comments) Runny nose itchy eyes ??? Pollen Extracts Other (see comments) Runny nose, itchy eyes PAST MEDICAL HISTORY 1. Basal cell carcinoma involving right gnosticism, status post Mohs surgery in June 2013 at [facility] 2. Negative for melanoma ?? FAMILY HISTORY [...] versus seborrheic keratosis. Examination of the right gnosticism/ forehead reveals no evidence for recurrence of [...] a return visit for reassessment. #3 Right gnosticism: History of basal cell carcinoma, status post Mohs surgery in June 2013 at [facility] No clinical evidence of local recurrence today. [...] Electronically Signed: nay Virk. 11/11/2019. 11:13 AM WELFARE CENTRE MANAGER. IMarianela M.D., personally performed the services described in this documentation. All medical record entries made by the scribe were at my direction and in my presence. I have reviewed the chart and discharge instructions (if applicable) and agree that the record reflects my personal performance and is accurate and complete. Marianela Braden M.D. . 11/11/2019. 11:27 AM WELFARE CENTRE MANAGER. ARE CENTRE MANAGER documented in this encounter Plan of Treatment Upcoming Encounters Date Type Specialty Care Team Description 09/27/2022 Office Visit Dermatology Marianela Braden M.D. [address] [place], [place] [phone] (Wo rk) documented as of this encounter Visit Diagnoses Diagnosis Keratosis Actinic - Primary Keratosis Seborrheic [place] Keratosis Cancer Skin Basal Cell Personal History documented in this encounter Additional Health Concerns Assessment Noted Time PHQ-9 Depression Total Score: 1 12/02/2015 8:50 AM WELFARE CENTRE MANAGER documented as of this encounter Care Teams Stack Clerk Relationship Specialty Start Date End Date Elsewhere, Pcp PCP - General Family Medicine 01/30/19 documented as of this encounter
--- OUTSIDE RECORDS SUMMARY | 2022-08-16 13:24 | XMS_ITS | Encounter Summary ---
:1945 Author Organization [facility] Address [address] [place] [address] Care Team Providers Name Role Phone Unavailable Primary Care Provider Unavailable Encounter Details Date Type Department Care Team Description 12/08/2016 Hospital Encounter HX [facility] INTERNMED Jairo Kruger M.D. [address] [place] [address] 021 (Wo rk) Social History Tobacco Use Types Packs/Day Years Used Date Smoking Tobacco: Former Sex Assigned at Date Recorded Not on file documented as of this encounter Last Filed Vital Signs Vital Sign Reading Time Taken Comments Blood Pressure 167/60 12/08/2016 10:21 AM TEA ROOM MANAGER Pulse 68 12/08/2016 10:20 AM TEA ROOM MANAGER Temperature - - Respiratory Rate 20 12/08/2016 10:20 AM TEA ROOM MANAGER Oxygen Saturation - - Inhaled Oxygen Concentration - - Weight 101 kg (223 lb 7 oz) 12/08/2016 10:20 AM TEA ROOM MANAGER Height - - Body Mass Index 40.09 12/02/2015 8:50 AM TEA ROOM MANAGER documented in this encounter Medications at Time of Discharge Medication Sig Dispensed Refills Start Date End Date aspirin [address] tablet Take 1 tablet by mouth 0 03/14/2014 daily. vit Take 1 capsule by 0 12/02/2015 C/E/Zn/coppr/lutein/zeaxa mouth 2 (two) times a n (PRESERVISION AREDS-2 day. ORAL) documented as of this encounter Progress Notes Brandin Kruger M.D. - 12/08/2016 10:00 AM CST [id number] CHIEF COMPLAINT/REASON FOR VISIT Medication question. The [...] HISTORY She is . She lives in [place] and does not use tobacco and has [...] KRUGER MD On: 12/09/2016 01:10 PM Source: [facility] MHSDOLBEYNONRADSYS Document Id: [id number] ROOM MANAGER documented in this encounter Miscellaneous Notes Miscellaneous - Brandin Kruger M.D. - 12/08/2016 10:56 AM CST Ambulatory Patient Summary [address] [id number] Visit Information Name: FRANCES HAGER [facility] Number: [id number] Current Date: 12/08/2016 10:56:08 Physicians [...] Oral, once a day New Routed to [address] [address] atorvastatin (Lipitor 40 mg oral [...] if you dont have one. Go to [email or web address] and click on Create Your Account. Then, follow the directions to complete the online form. Youll be asked for your [facility] number which you can find at the top of this document. Your Goals/Additional instructions: Source: [facility] POWERCHART Document Id: [id number] ROOM MANAGER Miscellaneous - Brandin Kruger M.D. - 12/08/2016 10:56 AM CST Ambulatory Discharge Medication List [address] [id number] Visit Information Name: FRANCES HAGER [facility] Number: [id number] Current Date: 12/08/2016 10:56:07 Attending [...] Oral, once a day New Routed to [address] [address] atorvastatin (Lipitor 40 mg oral tablet) 1 [...] MD Signed On:08-DEC-2016 10:54:54 Additional Information: Source: [facility] POWERCHART Document Id: [id number] ROOM MANAGER Miscellaneous - Dary Wilkins L.P.NLori - 12/08/2016 10:24 AM CST Health Assessment Health Assessment Entered On: 12/08/2016 10:26 TEA ROOM MANAGER Performed On: 12/08/2016 10:24 TEA ROOM MANAGER by DARY WILKINS LPN Health Assessment Complete Health Assessment Complete or Modified : Annual Health Assessment Annual Health Assessment Completed : Yes DARY WILKINS LPN - 12/08/2016 10:24 TEA ROOM MANAGER Nutrition Nutrition Risk Factors by History Adult : None DARY WILKINS LPN - 12/08/2016 10:24 TEA ROOM MANAGER Functional Current Daily Living Assistance : None DARY WILKINS LPN - 12/08/2016 10:24 TEA ROOM MANAGER Dependent Habits Exposure to Tobacco Smoke : Other: former smoker Smoking Status : Former smoker Tobacco 2A : Yes Tobacco Use/Currently Using : No Tobacco Use/Last 30 Days : No Tobacco Use/Last 12 months : No Alcohol Use : No DARY WILKINS LPN - 12/08/2016 10:24 TEA ROOM MANAGER Caffeine Use Grid Caffeine Use : Current Type : Coffee FRANKY DARY Samson LPN - 12/08/2016 10:24 TEA ROOM MANAGER Recreational Drug Use Grid Drug Use : None WILKINS, DARY Samson LPN - 12/08/2016 10:24 TEA ROOM MANAGER Psychosocial Domestic Abuse Concerns : None Behavioral Health Screen/Safety Assmt : No Confucianist Preference : Tenriism WILKINSDARY LPN - 12/08/2016 10:24 TEA ROOM MANAGER Advance Directive Advanced Directives : Yes Advance Directive Type : Living will Advance Directive Location : Family to bring in copy from home Advance Directive Intent Stated By : Spouse Intent of Advance Directive (In Patient's Own Words) : Either of spouses or their children WILKINS, DARY Samson LPN - 12/08/2016 10:24 TEA ROOM MANAGER Educ Needs Learning Style Preference Adult Grid Patient : None Family : None WILKINSDARY LPN - 12/08/2016 10:24 TEA ROOM MANAGER Source: [employer] Document Id: [id number] TEA ROOM MANAGER!37 ROOM MANAGER Jimmie - Dary Wilkins L.P.NLori - 12/08/2016 10:21 AM CST Ambulatory Vitals Height Weight Ambulatory Vitals Height Weight Entered On: 12/08/2016 10:23 TEA ROOM MANAGER Performed On: 12/08/2016 10:21 TEA ROOM MANAGER by DARY WILKINS LPN Vitals/Ht/Wt Systolic Blood Pressure : 167 mmHg (>HHI) Diastolic Blood Pressure : 60 mmHg NIBP Mean : 96 mmHg BP Location : Left upper extremity Blood Pressure Cuff Size : Large DARY WILKINS LPN - 12/08/2016 10:21 TEA ROOM MANAGER Source: [employer] Document Id: [id number] TEA ROOM MANAGER!7 ROOM MANAGER Jimmie - Dary Wilkins L.P.NLori - 12/08/2016 10:20 AM CST Adult Experimental Welder Intake/History Adult Experimental Welder Intake/History Entered On: 12/08/2016 10:21 TEA ROOM MANAGER Performed On: 12/08/2016 10:20 TEA ROOM MANAGER by DARY WILKINS BLIND HOOKER Intake Chief Complaint : Medication check Temperature [...] kg DARY WILKINS LPN - 12/08/2016 10:20 TEA ROOM MANAGER General Info Information Given By : Patient Preferred Communication Mode : Verbal Languages : Armenian Is Patient Female and 13-50 no hysterectomy : No DARY WILKINS LPN - 12/08/2016 10:20 TEA ROOM MANAGER Subjective Pain Symptoms : No DARY WILKINS LPN - 12/08/2016 10:20 TEA ROOM MANAGER Dependent Habits Exposure to Tobacco Smoke : Other: former smoker Smoking Status : Former smoker Tobacco 2A : Yes Tobacco Use/Currently Using : No Tobacco Use/Last 30 Days : No Tobacco Use/Last 12 months : No DARY WILKINS LPN - 12/08/2016 10:20 TEA ROOM MANAGER Caffeine Use Grid Caffeine Use : Current Type : Coffee DARY WILKINS LPN - 12/08/2016 10:20 TEA ROOM MANAGER Recreational Drug Use Grid Drug Use : None DARY WILKINS LPN - 12/08/2016 10:20 TEA ROOM MANAGER Source: [facility] POWERCHART Document Id: [id number] TEA ROOM MANAGER!35 ROOM MANAGER documented in this encounter Plan of Treatment Upcoming Encounters Date Type Specialty Care Team Description 09/27/2022 Office Visit Dermatology Marianela Braden M.D. [address] [place] [phone] (Wo rk) documented as of this encounter Visit Diagnoses Not on filedocumented in this encounter Additional Health Concerns Assessment Noted Time PHQ-9 Depression Total Score: 1 12/02/2015 8:50 AM TEA ROOM MANAGER documented as of this encounter
--- OUTSIDE RECORDS SUMMARY | 2022-08-16 13:24 | XMS_ITS | Encounter Summary ---
:1945 Author Organization [facility] Address [address] [place] [address] Care Team Providers Name Role Phone Unavailable Primary Care Provider Unavailable Encounter Details Date Type Department Care Team Description 02/15/2017 Hospital Encounter HX [facility] INTERNMED Jairo Kruger M.D. [address] [place] [address] 021 (Wo rk) Social History Tobacco Use [...] Kruger M.D. - 02/15/2017 2:57 PM CDT [id number] CHIEF COMPLAINT/REASON FOR VISIT Uncontrolled diabetes. Ms. [...] KRUGER MD On: 02/20/2017 07:29 AM Source: [facility] MHSDOLBEYNONRADSYS Document Id: [id number] documented in this encounter Miscellaneous Notes Telephone Encounter - Conversion, Historical Provider Ser - 06/06/2017 3:02 PM CDT *Phone Message/[place] Document Contains Addenda Addendum by IRVIN SMITH LPN on June 07, 2017 09:34:49 CDT new form filled out and taken to front desk manager for patient shrimp picker Addendum by BRANDIN KRUGER MD on June [...] language for Healthcare discussion: _ Was an chalk molding machine operator used for this call? _ Other ( [...] disability permit. please call pt to clarify [phone] Advice/Action: Source used: ( ) Verbalizes understanding [...] cell phone number ( ) Source: [facility] [employer] Document Id: [id number] Telephone Encounter - Conversion, Historical Provider Ser - 04/12/2017 10:09 AM CDT *Phone Message Document Contains Addenda Addendum by FROILAN AGEE [facility] on April 12, 2017 13:32:58 CDT Spoke with: ( x ) Patient ( _ ) Parent ( _ ) Spouse ( _ ) Child ( ) Other: _ Call back telephone number: [phone] Reason for Call: -return call Chief Complaint: [...] language for Healthcare discussion: luxembourgish Was an chalk molding machine operator used for this call? _ Other ( --_x ) na Addendum by BRANDIN KRUGER MD on April 12, 2017 13:05:37 CDT From: BRANDIN KRUGER MD To: Brandin Kruger Nurse; Sent: 04/12/2017 13:05:37 CDT Subject: RE: *Phone Message bloods on the day Addendum by FROILAN AGEE [facility] on April 12, 2017 10:46:06 CDT From: FROILAN AGEE [facility] ( Brandin Kruger Nurse) To: BRANDIN KRUGER MD; Sent: 04/12/2017 10:46:06 CDT Subject: FW: *Phone Message From: LEVAR SIERRA ( Family Medicine Teacher Public Health) To: GRZEGORZ Kruger Nurse; Sent: 04/12/2017 10:09:36 [...] is out of the office until 04/25/17. [phone] Advice/Action: Source used: ( ) Verbalizes understanding [...] cell phone number ( ) Source: [facility] [employer] Document Id: [id number] Miscellaneous - Brandin Kruger M.D. - 02/15/2017 3:38 PM CDT Ambulatory Patient Summary [facility] [address] [place] [id number] Visit Information Name: FRANCES HAGER [facility] Number: [id number] Current Date: 02/15/2017 15:38:38 [...] Oral, once a day New Routed to [address] [address] lisinopril (lisinopril 40 mg oral [...] if you dont have one. Go to [email or web address] and click on Create Your Account. Then, follow the directions to complete the online form. Youll be asked for your [facility] number which you can find at the top of this document. Your Goals/Additional instructions: Source: [facility] POWERCHART Document Id: [id number] Miscellaneous - Brandin Kruger M.D. - 02/15/2017 3:38 PM CDT Ambulatory Discharge Medication List [address] [id number] Visit Information Name: FRANCES HAGER [facility] Number: [id number] Current Date: 02/15/2017 15:38:37 [...] Oral, once a day New Routed to [place] [id number] [address] [address] lisinopril (lisinopril 40 mg oral [...] MD Signed On:15-FEB-2017 15:37:51 Additional Information: Source: [facility] POWERCHART Document Id: [id number] Miscellaneous - Lucio Snyder, LLoriPLoriN. - 02/15/2017 3:09 PM CDT Adult Re Examiner Intake/History Adult Re Examiner Intake/History Entered On: 02/15/2017 15:14 CDT Performed [...] Information Given By : Patient Languages : Eritrean Is Patient Female and 13-50 no hysterectomy [...] SNYDER LPN - 02/15/2017 15:09 CDT Source: [employer] Document Id: [id number] CDT!36 documented in this encounter Plan of Treatment Upcoming Encounters Date Type Specialty Care Team Description 09/27/2022 Office Visit Dermatology Marianela Braden M.D. [address] [place], [place] [phone] (Wo rk) documented as of this encounter Visit Diagnoses Not on filedocumented in this encounter Additional Health Concerns Assessment Noted Time PHQ-9 Depression Total Score: 1 12/02/2015 8:50 AM SUPERVISOR BEEHIVE KILN documented as of this encounter
--- OUTSIDE RECORDS SUMMARY | 2022-08-16 13:24 | XMS_ITS | Encounter Summary ---
:1945 Author Organization [facility] Address [address] [place] [address] Care Team Providers Name Role Phone Unavailable Primary Care Provider Unavailable Encounter Details Date Type Department Care Team Description 01/19/2017 Hospital Encounter HX [facility] FBCV Jairo Mix M.D. [address] [place] [address] 021 (Wo rk) Social History Tobacco Use [...] Sensitive-Scott 1.4 mIU/L (0.3-4.2 - ) Source: [facility] POWERCHART Document Id: [id number] Electronically signed by Conversion, [facility] Transfer Table Operator Helper [id number] at 04/18/2017 2:02 AM CDT Miscellaneous - [...] 8.4 % A1C ( - <=5.6) Source: [facility] POWERCHART Document Id: [id number] Electronically signed by Conversion, [facility] Transfer Table Operator Helper [id number] at 04/18/2017 2:02 AM CDT documented in this encounter Plan of Treatment Upcoming Encounters Date Type Specialty Care Team Description 09/27/2022 Office Visit Dermatology Marianela Braden M.D. [address] [place], [place] [phone] (Wo rk) documented as [...] M.D. LAB URINE ORDERABLES Performing Organization Address City/[facility]/ZIP Code Phon e Number POWERCHART Thyroid Function [place] (01/19/2017 9:52 AM CDT) athologist Signature TSH, Sensitive 1.4 0.3 - 4.2 POWERCHART MIUL Comment: Test Performed by: [address] [address] Specimen (Source) Anatomical Collection Method Collection Time Re ceived Time Location / / Volume Laterality Blood 01/19/2017 9:52 AM CDT Brandin Kruger M.D. LAB BLOOD ADD-ON Performing Organization Address City/[facility] Code Phon e Number POWERCHART (ABNORMAL) [...] for FH and FDB is available throu [facility] [place] [facility]: FH/ADH Genetic Reflex Tuttle el (test ADHP). Acquired (non-genetic) causes of markedly increased LDL cholesterol include cholestatic liver disease due to the presence of LpX. If a genetic form of hypercholesterolemia is suspected, family studies including biochemical testing fo r lipids (total cholesterol,triglycerides, LDL cholesterol and HDL cholesterol) are recommended. ??Please contact the laboratory at or the on-line test catalog at [employer] for information about how to order these [...] M.D. 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
--- OUTSIDE RECORDS SUMMARY | 2022-08-16 13:24 | XMS_ITS | Encounter Summary ---
:1945 Author Organization [facility] Address [address] [place] [address] Care Team Providers Name Role Phone Unavailable Primary Care Provider Unavailable Encounter Details Date Type Department Care Team Description 03/27/2015 Hospital Encounter HX [facility] FB Naren Ervin M.D. [address] [place] [phone] (Marty gates) Social History Tobacco [...] Visit Dermatology Marianela Braden M.D. [address] [place], [place] [phone] (Wo rk) documented as [...]
--- OUTSIDE RECORDS SUMMARY | 2022-08-16 13:24 | XMS_ITS | Encounter Summary ---
:1945 Author Organization [facility] Address [address] [place] [address] Care Team Providers Name Role Phone Unavailable Primary Care Provider Unavailable Encounter Details Date Type Department Care Team Description 03/27/2015 Hospital Encounter HX [facility] FBHB BONE DENS Jairo Kruger M.D. [address] [place] [phone] (Wo yajaira) Social History Tobacco [...] Visit Dermatology Marianela Braden M.D. [address] [place], [place] [phone] (Wo rk) documented as [...] was administratively signed by proxy from a [employer] basis administrator for system process complet ion purposes. Narrative 03/27/2015 2:57 PM CDT Originally Signed By Contributor_system [employer]_PSCRIBE_SYS EXAM: BD Bone Density Screening INDICATION: screening Procedure Note ProviderAmy M.D. - 03/15/2017F ormatting of this note might be different from the original. Originally Signed By Contributor_systemELIS_PSCRIBE_SYS EXAM: BD Bone Density Screening INDICATION: screening IMPRESSION: To see the signed report ple ase check the scanned copy in the patient's powerchart. This report was administratively signed by proxy from a [employer] basis administrator for system process complet ion purposes. Wendy Chavez(R), R.TLori(R)(M) IMG DXA PROCEDURES documented in this encounter Visit Diagnoses Not on filedocumented in this encounter Additional Health Concerns Assessment Noted Time PHQ-9 Depression Total Score: 3 05/05/2014 7:55 AM CDT documented as of this encounter
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
--- OUTSIDE RECORDS SUMMARY | 2022-08-16 13:24 | XMS_ITS | Encounter Summary ---
:1945 Author Organization [facility] Address [address] [place] [address] Care Team Providers Name Role Phone Unavailable Primary Care Provider Unavailable Encounter Details Date Type Department Care Team Description 03/31/2017 Hospital Encounter [facility]X [facility] Jairo Mix M.D. [address] [place] [address] 021 (Wo rk) Social History Tobacco Use [...] Patient MRN #: Reason for Call: Message: [facility] called. They said they just received a fax regarding if the pt should be on both blood pressure meds Atenolol and a seconed Atenolol plus Chlorthalidone, but the fax was unreadable. Fax is [phone] to try to refax or preferably, please call for a verbal, incase their fax machine isn't working correctly. The dr line is [phone] Advice/Action: Source used: ( ) Verbalizes understanding [...] back cell phone number ( ) Source: [facility] POWERCHART Document Id: [id number] Miscellaneous - Brandin Kruger M.D. - 04/04/2017 [...] language for Healthcare discussion: _ Was an sustainability officer used for this call? _ Other ( [...] mcmol/L (200 - 285 - ) Source: [facility] POWERCHART Document Id: [id number] Miscellaneous - Brandin Kruger M.D. - 03/31/2017 [...] language for Healthcare discussion: _ Was an sustainability officer used for this call? _ Other (x [...] Will send plain torsemide andplain atenolol to [facility]. Recheck with me in 1 month Results: [...] Lvl 9.7 mg/dL (8.8 - 10.3) Source: [facility] POWERCHART Document Id: [id number] documented in this encounter Plan of Treatment Upcoming Encounters Date Type Specialty Care Team Description 09/27/2022 Office Visit Dermatology Marianela Braden M.D. 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
--- OUTSIDE RECORDS SUMMARY | 2022-08-16 13:24 | XMS_ITS | Encounter Summary ---
:1945 Author Organization [facility] Address [address] [place] [address] Care Team Providers Name Role Phone Unavailable Primary Care Provider Unavailable Encounter Details Date Type Department Care Team Description 08/01/2016 [facility] Jairo Mix M.D. [address] [place] [address] 021 (Wo rk) Social History Tobacco Use [...] phys- has questions- call her back at [phone] Advice/Action: Source used: ( ) Verbalizes understanding [...] back cell phone number ( ) [facility] Document Id: [id number] Miscellaneous - Lashanda Marks M.D. - 08/01/2016 1:50 PM CDT Results Notification From: LASHANDA MARKS MD To: BRANDIN KRUGER MD; Sent: 08/01/2016 13:50:41 CDT ! Show up: 08/01/2016 13:50:41 CDT Subject: Results Notification Actions: Notify patient of results Results: Date Result Name Ind Value Ref Range 08/01/2016 10:23 Hgb A1c (H) 7.4 % A1C ( - <=5.6) Source: [facility] Document Id: [id number] Electronically signed by Conversion, [facility] Customer Service Voice [id number] at 04/02/2017 4:24 AM CDT documented in this encounter Plan of Treatment Upcoming Encounters Date Type Specialty Care Team Description 09/27/2022 Office Visit Dermatology Marianela Braden M.D. [address] [place], [place] [phone] (Wo rk) documented as [...] Depression Total Score: 1 12/02/2015 8:50 AM OCTAVE BOARD RACKER documented as of this encounter
--- OUTSIDE RECORDS SUMMARY | 2022-08-16 13:24 | XMS_ITS | Encounter Summary ---
:1945 Author Organization [facility] Address [address] [place] [address] Care Team Providers Name Role Phone Unavailable Primary Care Provider Unavailable Encounter Details Date Type Department Care Team Description 03/04/2015 Hospital Encounter [facility]X [facility] Jairo Kruger M.D. [address] [place] [address] 021 (Wo rk) Social History Tobacco Use [...] Kruger M.D. - 03/04/2015 10:13 AM CDT [id number] Frances presents today to basically go through [...] to look at her back. MEDICATIONS Per [facility] EMR. ALLERGIES Per [facility] EMR. SYSTEMS REVIEW Review of systems in all areas except as mentioned above is negative. PREVENTIVE SERVICES: Per [facility] EMR. Handwashing done prior to patient contact. PAST MEDICAL/SURGICAL HISTORY Per [facility] EMR. VITAL SIGNS Per [facility] EMR. PHYSICAL EXAMINATION ENT: Eyes: Conjunctivae and [...] simple disequilibrium. She does physical therapy in [place] so I will fill out a form to that effectand I will have her work with them for 6 to 8 weeks and I will see her in 6 weeks to assess the progress of physical therapy. She was comfortable with that. Brandin Kruger M.D./cipriano Electronically Signed By: BRANDIN KRUGER MD On: 03/04/2015 11:54 AM Source: [facility] MHSDOLBEYNONRADSYS Document Id: [id number] documented in this encounter Miscellaneous Notes Telephone [...] the results. Please call the pt at [phone] Message: Advice/Action: Source used: ( ) Verbalizes [...] back cell phone number ( ) [facility] Document Id: [id number] Telephone Encounter - Conversion, Historical Provider Ser - 05/07/2015 12:39 PM CDT *Phone Message/Dr. Brandin Kruger Document Contains Addenda Addendum by IRVIN SALINAS LPN on 07 May 2015 13:00:44 CDT Daphne called with faxed progress notes From: NAOMI LOWE ( [employer] Credentialing Specialist) To: Brandin Kruger Nurse; Sent: 05/07/2015 12:39:27 CDT Subject: *Phone Message/Dr. Brandin Kruger Caller is: ( ) Patient ( ) Mother ( ) Father ( ) Spouse ( ) Daughter ( ) Son ( ) Pharmacy ( x ) Other: Daphne from [facility] in [facility] Physician: Dr. Brandin Kruger Patient MRN #: Reason for Call: Message: Indigo Daphne is checking to see if you received the progress notes on this patient that they sent to you. B Patient has an appointment with you at 1:30 today. A R Please call Daphne, or whoever answers, at [phone] and let them know if you received [...] cell phone number ( ) Source: [facility] Consumer [employer] Document Id: [id number] Miscellaneous - Brandin Kruger M.D. - 03/04/2015 10:44 AM CDT Ambulatory Patient Summary [address] [id number] Visit Information Name: FRANCES HAGER [facility] Number: [id number] Current Date: 03/04/2015 10:43:59 Physicians [...] diabetes and lists emergency contact numbers ?? [phone] [facility], [address] [place] [address], [place] [address]. All rights reserved. This information is not intended as a substitute for professional medical care. Always follow your healthcare professional's instructions. Your Goals/Additional instructions: This document has images extracted. Please consider using [facility] for all your patient education needs. Source: [facility] POWERCHART Document Id: [id number] Miscellaneous - Brandin Kruger M.D. - 03/04/2015 10:43 AM CDT Ambulatory Discharge Medication List [address] [id number] Visit Information Name: FRANCES HAGER [facility] Number: [id number] Visit Date: 03/04/2015 10:43:57 Attending [...] MD Signed On:04-MAR-2015 10:42:55 Additional Information: Source: [facility] POWERCHART Document Id: [id number] Miscellaneous - Irvin Salinas L.PLoriNLori - 03/04/2015 10:24 AM CDT Adult Cut Order Hand Intake/History Adult Cut Order Hand Intake/History Entered On: 03/04/2015 10:28 CDT Performed [...] Index : 36.72 kg/m2 SALINAS, IRVIN LENNOX ROTARY CUTTER - 03/04/2015 10:24 CDT General Info Information Given By : Patient Languages : Yi Is Patient Female and 13-50 no hysterectomy : IRVIN Irizarry ROTARY CUTTER - 03/04/2015 10:24 CDT Subjective Pain Symptoms : No IRVIN SALINAS ROTARY CUTTER - 03/04/2015 10:24 CDT Dependent Habits Tobacco Use/Currently Using : No Exposure to Tobacco Smoke : Other: former smoker Smoking Status : Never smoker IRVIN SALINAS [facility] - 03/04/2015 10:24 CDT Caffeine Use Grid Caffeine Use : Current Type : Coffee IRVIN SALINAS ROTARY CUTTER - 03/04/2015 10:24 CDT Recreational Drug Use Grid Drug Use : None IRVIN SALINAS [facility] 03/04/2015 10:24 CDT ID Screen Drug Resistant Organism : Yes Travel Within Last 21 Days : No Contact with someone with Ebola : IRVIN Irizarry RAE ROTARY CUTTER 03/04/2015 10:24 CDT Source: [employer] Document Id: [id number]!39 documented in this encounter Plan of Treatment Upcoming Encounters Date Type Specialty Care Team Description 09/27/2022 Office Visit Dermatology Marianela Braden M.D. [address] [place] [address] [phone] (Wo rk) documented as of this encounter Visit Diagnoses Not on filedocumented in this encounter Additional Health Concerns Assessment Noted Time PHQ-9 Depression Total Score: 3 05/05/2014 7:55 AM CDT documented as of this encounter
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
--- OUTSIDE RECORDS SUMMARY | 2022-08-16 13:24 | XMS_ITS | Encounter Summary ---
:1945 Author Organization [facility] Address [address] [place] [address] Care Team Providers Name Role Phone Unavailable Primary Care Provider Unavailable Encounter Details Date Type Department Care Team Description 12/08/2015 Hospital Encounter [facility] Jairo Mix M.D. [address] [place] [address] 021 (Wo rk) Social History Tobacco Use [...] JAY RN on January 05, 2017 11:53:03 AUTOMOTIVE SALES EXECUTIVE rx has been sent. Addendum by SALLY MITTAL RN on January 05, 2017 10:37:09 AUTOMOTIVE SALES EXECUTIVE sent proposal to DMB From: DANUTA RIVERO CMA ( Brandin Kruger Nurse) To: GRZEGORZ Miller Medication Refill; Sent: 01/05/2017 10:02:24 AUTOMOTIVE SALES EXECUTIVE Subject: Test strips refill request Caller is: (X) Patient ( ) Mother ( ) Father ( ) Spouse ( ) Daughter ( ) Son ( ) Pharmacy ( ) Other: Provider: Dr. Brandin Kruger Pharmacy: [facility] Name of Medications Needing Refill: One touch ultra blue test strips Last Refill Date: ? Additional Information: Will run out this month. Switched from Christie Moffett to Dr. Kruger Last / Future Appointment: Disposition: (X) Send to Pharmacy ( ) Call to Pharmacy ( ) Patient will black pickler Script ( ) Mail Rx to Patient Source: [facility] POWERCHART Document Id: [id number] Electronically signed by Conversion, [facility] Lav Crewman [id number] at 04/01/2017 9:47 AM CDT Telephone Encounter - Conversion, Historical Provider Ser - 01/05/2017 9:53 AM CST *Phone Message/D Maryanne Document Contains Addenda Addendum by DANUTA RIVERO CMA on January 05, 2017 10:00:33 AUTOMOTIVE SALES EXECUTIVE From: DANUTA RIVERO CMA (GRZEGORZ Kruger Nurse) To: BRANDIN KRUGER MD; Sent: 01/05/2017 10:00:33 AUTOMOTIVE SALES EXECUTIVE Subject: FW: *Phone Message/D Maryanne Addendum by DANUTA RIVERO CMA on January 05, 2017 10:00:16 AUTOMOTIVE SALES EXECUTIVE Spoke with: (X) Patient ( _ ) Parent ( _ ) Spouse ( _ ) Child ( ) Other: _ Call back telephone number: [phone] Reason for Call: -Rx Chief Complaint: Needs a new script for the Metformin. They aren't willing to give the patient two tablets twice daily at the pharmacy. Pharmacy is [facility]. Patient/Caller response to Education/Information given: (X) Verbalizes [...] day Callers preferred language for Healthcare discussion: Bolivian Was an nail making machine tender used for this call? No Other ( --_ ) From: KATELYN MENDOZA ([address] Nurse) To: GRZEGORZ Kruger Nurse; Sent: 01/05/2017 09:53:55 AUTOMOTIVE SALES EXECUTIVE Subject: *Phone Message/D Maryanne Caller is: (x ) Patient ( ) Mother ( ) Father ( ) Spouse ( ) Daughter ( ) Son ( ) Pharmacy ( ) Other: Physician: Patient MRN #: Reason for Call: Message: Patient called, in [place], tried to send a rx to [facility]. There is a mix up in Metformin,1000 and getting it filled, dosage was increased. She also has another question on another med [phone] Advice/Action: Source used: ( ) Verbalizes understanding [...] back cell phone number ( ) Source: [facility] POWERCHART Document Id: [id number] Miscellaneous - Brandin Kruger M.D. - 12/08/2015 3:31 PM CST Results Notification Document Contains Addenda Addendum by IRVIN SMITH LPN on 08 December 2015 16:30:04 AUTOMOTIVE SALES EXECUTIVE called with results From: BRANDIN KRUGER MD To: GRZEGORZ Kruger Nurse; Sent: 12/08/2015 15:31:12 AUTOMOTIVE SALES EXECUTIVE ! Show up: 12/08/2015 15:31:12 AUTOMOTIVE SALES EXECUTIVE Subject: Results Notification Actions: Notify patient of results Reminder Comments: ok Results: Date Result Name Ind Value Ref Range 12/08/2015 09:43 Cholesterol 158 mg/dL ( - <=199) 12/08/2015 09:43 Trig (H) 173 mg/dL ( - <=149) 12/08/2015 09:43 HDL 54 mg/dL (>=50 - ) 12/08/2015 09:43 LDL Calculated 69 mg/dL ( - <=129) 12/08/2015 09:43 Chol/HDL Ratio 2.93 12/08/2015 09:43 LDL/HDL 1 Source: [facility] POWERCHART Document Id: [id number] Electronically signed by Conversion, [facility] Lav Crewman [id number] at 04/01/2017 9:47 AM CDT documented in this encounter Plan of Treatment Upcoming Encounters Date Type Specialty Care Team Description 09/27/2022 Office Visit Dermatology Marianela Braden M.D. [address] [place], [place] [phone] (Wo rk) documented as of this encounter Procedures Procedure Name Priority Date/Time Associated Diagnosis Comme nts LIPID PANEL, S Routine 12/08/2015 9:43 AM Results for this AUTOMOTIVE SALES EXECUTIVE procedure are i n the results section . documented in this encounter Results (ABNORMAL) Lipid Panel (12/08/2015 9:43 AM AUTOMOTIVE SALES EXECUTIVE) P athologist Signature Calculated LDL 69 <=129 [...] esting for FH and FDB [facility]: FH/ADH Genetic Reflex T[place] el (test ADHP). Acquired (non-genetic) causes of markedly increased LDL cholesterol include cholestatic liver disease due to the presence of LpX. If a genetic form of hypercholesterolemia is suspected, family studies including biochemical testing fo r lipids (total cholesterol,triglycerides, LDL cholesterol and HDL cholesterol) are recommended. ??Please contact the laboratory at or the on-line test catalog at [employer] for information about how to order these [...] / Volume Laterality Blood 12/08/2015 9:43 AM AUTOMOTIVE SALES EXECUTIVE Brandin Kruger M.D. LAB BLOOD ADD-ON Performing Organization Address City/State/ZIP Code Phon e Number POWERCHART documented in this encounter Visit Diagnoses Not on filedocumented in this encounter Additional Health Concerns Assessment Noted Time PHQ-9 Depression Total Score: 1 12/02/2015 8:50 AM AUTOMOTIVE SALES EXECUTIVE documented as of this encounter
--- OUTSIDE RECORDS SUMMARY | 2022-08-16 13:24 | XMS_ITS | Encounter Summary ---
:1945 Author Organization [facility] Address [address] [place] [address] Care Team Providers Name Role Phone Unavailable Primary Care Provider Unavailable Encounter Details Date Type Department Care Team Description 12/02/2015 Hospital Encounter HX NO MAPPING Fabricio Kruger M.D. [address] [place] [address]21 (Wo rk) Social History Tobacco Use [...] Historical Provider Ser - 12/02/2015 11:59 PM BOX HINGE AND LOCK ATTACHER Coding Summary-Paper Based CODING DATE: 12/11/2015 FINAL [facility] STATUS: * Discharged to Home or [...] 03:26 pm Source: [facility] POWERCHART Document Id: [id number] documented in this encounter Plan of Treatment Upcoming Encounters Date Type Specialty Care Team Description 09/27/2022 Office Visit Dermatology Marianela Braden M.D. [address] [place], [place] [phone] (Wo rk) documented as of this encounter Visit Diagnoses Not on filedocumented in this encounter Additional Health Concerns Assessment Noted Time PHQ-9 Depression Total Score: 1 12/02/2015 8:50 AM BOX HINGE AND LOCK ATTACHER documented as of this encounter
--- OUTSIDE RECORDS SUMMARY | 2022-08-16 13:24 | XMS_ITS | Encounter Summary ---
:1945 Author Organization [facility] Address [address] [place] [address] Care Team Providers Name Role Phone Unavailable Primary Care Provider Unavailable Encounter Details Date Type Department Care Team Description 11/27/2014 Hospital Encounter HX NO MAPPING Fabricio Kruger M.D. [address] [place] [address]21 (Wo rk) Social History Tobacco Use [...] SMITH LPN on 16 December 2014 11:40:07 JOINER patient returned call metformin sent to Pharmacy on 12/15/14 Addendum by IRVIN SMITH LPN on 16 December 2014 11:12:01 JOINER message left for patient to return call From: MONICA ACKERMAN To: GRZEGORZ Kruger Nurse; Sent: 12/16/2014 10:39:51 JOINER Subject: *Phone Message Caller is: ( x ) Patient ( ) Mother ( ) Father ( ) Spouse ( ) Daughter ( ) Son ( ) Pharmacy ( ) Other: Physician: Patient Reason for Call: Message: S: Patient called to leave message with doctor B: Patient has questions regarding new medication she has A: R: Call patient at [phone] Advice/Action: Source used: ( ) Verbalizes understanding [...] back cell phone number ( ) Source: [employer] Document Id: [id number] Miscellaneous - Conversion, Historical Provider Ser - 11/27/2014 11:59 PM JOINER Coding Summary-Paper Based CODING DATE: 12/09/2014 FINAL [facility] STATUS: * Discharged to Home or Self [...] LAUREANO Date Saved: 12/09/2014 10:51 pm Source: [employer] Document Id: [id number] documented in this encounter Plan of Treatment Upcoming Encounters Date Type Specialty Care Team Description 09/27/2022 Office Visit Dermatology Marianela Braden M.D. [address] [place], [place] [phone] (Wo rk) documented as of this encounter Visit Diagnoses Not on filedocumented in this encounter Additional Health Concerns Assessment Noted Time PHQ-9 Depression Total Score: 3 05/05/2014 7:55 AM CDT documented as of this encounter
--- OUTSIDE RECORDS SUMMARY | 2022-08-16 13:24 | XMS_ITS | Encounter Summary ---
:1945 Author Organization [facility] Address [address] [place] [address] Care Team Providers Name Role Phone Unavailable Primary Care Provider Unavailable Encounter Details Date Type Department Care Team Description 10/08/2014 Hospital Encounter HX NO MAPPING Fabricio Kruger M.D. [address] [place] [phone] (Wo yajaira) Social History Tobacco [...] Dermatology Marianela Braden M.D. [address] [place], [place] [phone] (Wo rk) documented as of this encounter Visit Diagnoses Not on filedocumented in this encounter Additional Health Concerns Assessment Noted Time PHQ-9 Depression Total Score: 3 05/05/2014 7:55 AM CDT documented as of this encounter
--- OUTSIDE RECORDS SUMMARY | 2022-08-16 13:24 | XMS_ITS | Encounter Summary ---
:1945 Author Organization [facility] Address [address] [place] [address] Care Team Providers Name Role Phone Unavailable Primary Care Provider Unavailable Encounter Details Date Type Department Care Team Description 12/02/2015 Hospital Encounter HX [facility] INTERNMED Jairo Kruger M.D. [address] [place] [address] 021 (Wo rk) Social History Tobacco Use Types Packs/Day Years Used Date Smoking Tobacco: Never Assessed Sex Assigned at Date Recorded Not on file documented as of this encounter Last Filed Vital Signs Vital Sign Reading Time Taken Comments Blood Pressure 132/70 12/02/2015 8:50 AM [facility] Pulse 65 12/02/2015 8:50 AM [facility] Temperature - - Respiratory Rate 16 12/02/2015 8:50 AM [facility]GE Oxygen Saturation - - Inhaled Oxygen Concentration - - Weight 98 kg (216 lb 0.8 oz) 12/02/2015 8:50 AM [facility] Height 159 cm (5' 2.6) 12/02/2015 8:50 AM [facility] Body Mass Index 38.76 12/02/2015 8:50 AM [facility] documented in this encounter Medications at Time of Discharge Medication Sig Dispensed Refills Start Date End Date aspirin [address] tablet Take 1 tablet by mouth 0 03/14/2014 daily. vit Take 1 capsule by 0 12/02/2015 C/E/Zn/coppr/lutein/zeaxa mouth 2 (two) times a n (PRESERVISION AREDS-2 day. ORAL) documented as of this encounter H&P Notes Brandin Kruger M.D. - 12/02/2015 8:36 AM CST [id number] Preventive medicine with acute problems. The patient [...] a very nice diabetic control program in [place] where she is offered A1c's, lipid panels [...] Hearing grossly normal to scratch test bilaterally. [place] teeth top and bottom. She has got [...] this through the class she has in [place]. 6. Inactive problems. Please see past medical history. HEALTH MAINTENANCE CONCERNS Instructed to have a complete physical examination once a year, to see an accounts supervisor or crimper assembler once a year for glaucoma screening, and [...] KRUGER MD On: 12/02/2015 04:17 PM Source: [facility] MHSDOLBEYNONRADSYS Document Id: [id number] RUCTOR BRIDGE documented in this encounter Miscellaneous Notes Miscellaneous - Chapito Wilkes R.N. - 11/08/2016 11:06 AM CST refill request - Divalproex Document Contains Addenda Addendum by BRANDIN KRUGER MD on November 08, 2016 12:22:35 [facility]STRU[facility] From: BRANDIN KRUGER MD Sent: 11/08/2016 12:22:35 INSTRUCTOR BRIDGE Subject: RE:refill request - Divalproex Approved Order:divalproex sodium (Depakote 500 mg oral delayed release tablet) See Instructions 1 tab(s) PO in the AM and 2 tabs in the PM Due for Annual Physical Qty: 270 tab(s) Refills: 0 Substitutions Allowed Route To Pharmacy - [facility][id number] Signed by BRANDIN KRUGER MD 11/08/2016 12:22:27 From: CHAPITO WILKES RN ([facility] Medication Refill) To: BRANDIN KRUGER MD; Sent: 11/08/2016 11:06:43 INSTRUCTOR BRIDGE Subject: refill request - Divalproex On hold pending signature Order:divalproex sodium (Depakote 500 mg oral delayed release tablet) See Instructions 1 tab(s) PO in the AM and 2 tabs in the PM Due for Annual Physical Qty: 270 tab(s) Refills: 0 Substitutions Allowed Route To Pharmacy - [facility] #[id number] Caller is: ( _ ) Patient ( _ ) Mother ( _ ) Father ( _ ) Spouse ( _ ) Daughter ( _ ) Son ( x ) Pharmacy ( _ ) Other: _ Provider: [place] Pharmacy: [facility] Name of Medications Needing Refill: Divalproex Last Refill Date: 07/19/16 Additional Information: Direct to provider medication. Last / Future Appointment: 12/02/15 Disposition: ( x ) Send to Pharmacy ( _ ) Call to Pharmacy ( _ ) Patient will bulk picker Script ( _ ) Mail Rx to Patient Source: [facility] POWERCHART Document Id: [id number] Telephone Encounter - Conversion, Historical Provider Ser [...] ER 1000mg daily From: PAULA ZENG ( [employer] 60 Inker Machine) To: GRZEGORZ Kruger Nurse; Sent: 04/13/2016 16:25:33 CDT Subject: *Phone Message/dr brandin kruger Caller is: ( x ) Patient ( ) Mother ( ) Father ( ) Spouse ( ) Daughter ( ) Son ( ) Pharmacy ( ) Other: Physician: Patient MRN #: Reason for Call: [facility] didn't have record of the prescription for diabetes, for time release medication. any questions [phone]. Message: Advice/Action: Source used: ( ) Verbalizes [...] back cell phone number ( ) Source: [facility] path intelligence Document Id: [id number] Miscellkonrad - Lucio Mittal L.P.N. - 12/25/2015 11:20 AM CST Quality Measures Quality Measures Entered On: 01/12/2016 11:21 [facility]STRU[facility]GE Performed On: 12/25/2015 11:20 [facility] by LUCIO MITTAL LPN Labs Outside Lab Hgb A1c : 7.2 % LUCIO MITTAL LPN - 01/12/2016 11:20 INSTRUCTOR BRIDGE Source: [facility] path intelligence Document Id: [id number] INSTRUCTOR BRIDGE!3 RUCTOR BRIDGE Brandin Malik M.D. - 12/03/2015 10:07 AM CST Results Notification Document Contains Addenda Addendum by IRVIN SALINAS LPN on 03 December 2015 10:24:12 INSTRUCTOR BRIDGE called with results From: BRANDIN KRUGER MD To: Brandin Kruger Nurse; Sent: 12/03/2015 10:07:24 INSTRUCTOR BRIDGE ! Show up: 12/03/2015 10:07:24 INSTRUCTOR BRIDGE Subject: Results Notification Actions: Notify patient of results Reminder Comments: reflex OK Results: Date Result Name Ind Value Ref Range 12/02/2015 09:15 TSH, Sensitive-Scott (H) 5.2 mIU/L (0.3-4.2 - ) Source: [facility] path intelligence Document Id: [id number] Miscellaneous - Brandin Kruger M.D. - 12/03/2015 9:12 AM CST Results Notification From: BRANDIN KRUGER MD To: Brandin Kruger Nurse; Sent: 12/03/2015 09:12:12 INSTRU[facility] ! Show up: 12/03/2015 09:12:12 INSTRUCTOR BRIDGE Subject: Results Notification Actions: Notify patient of results Reminder Comments: go no further Results: Date Result Type Ind Result Name MBO Review Culture Urine Source: [facility] path intelligence Document Id: [id number] Telephone Encounter - Conversion, Historical Provider Ser - 12/03/2015 9:10 AM CST *Phone Message/Moe Kruger Document Contains Addenda Addendum by IRVIN SALINAS LPN on 03 December 2015 09:17:43 INSTRU[facility] From: IVRIN SALINAS LPN ( Brandin Kruger Nurse) To: BRANDIN KRUGER MD; Sent: 12/03/2015 09:17:43 INSTRU[facility] BRIDGE Subject: FW: *Phone Message/Moe Kruger can you please order chol From: BRUNA MANN ( [facility] [employer]) To: GRZEGORZ Kruger Nurse; Sent: 12/03/2015 09:10:35 INSTRU[facility]IDGE Subject: *Phone Message/Moe Kruger Caller is: (x [...] run that? Please call her back at [phone]. Message: Advice/Action: Source used: ( ) Verbalizes [...] back cell phone number ( ) Source: [facility] POWERCHART Document Id: [id number] Miscellaneous - Brandin Kruger M.D. - 12/02/2015 12:41 PM CST Results Notification Document Contains Addenda Addendum by IRVIN SALINAS LPN on 03 December 2015 08:41:33 INSTRUCTOR BRIDGE called with results From: BRANDIN KRUGER MD To: GRZEGORZ Kruger Nurse; Sent: 12/02/2015 12:41:55 INSTRUCTOR BRIDGE ! Show up: 12/02/2015 12:41:55 INSTRUCTOR BRIDGE Subject: Results Notification Actions: Notify patient of results Reminder Comments: ok Results: Date Result Name Ind Value Ref Range 12/02/2015 09:28 U Albumin 87.9 mg/L 12/02/2015 09:28 U Creatinine 240.2 mg/dL 12/02/2015 09:28 U Alb/Creatinine Ratio (H) 37 mg/g (0 - 25) Source: [facility] Chrono TherapeuticsCHART Document Id: [id number] Electronically signed by Conversion, [facility] Bi Architect [id number] at 04/01/2017 7:25 AM CDT Miscellaneous - Brandin Kruger M.D. - 12/02/2015 11:20 AM CST Results Notification Document Contains Addenda Addendum by IRVIN SALINAS LPN on 03 December 2015 08:41:39 INSTRUCTOR BRIDGE called with results From: BRANDIN KRUGER MD To: GRZEGORZ Kruger Nurse; Sent: 12/02/2015 11:20:51 INSTRUCTOR BRIDGE ! Show up: 12/02/2015 11:20:51 INSTRUCTOR BRIDGE Subject: Results Notification Actions: Notify patient of [...] ALT 20 unit/L (7 - 45) Source: [facility] POWERCHART Document Id: [id number] Miscellaneous - Brandin Kruger M.D. - 12/02/2015 9:52 AM CST Results Notification Document Contains Addenda Addendum by IRVIN SALINAS LPN on 03 December 2015 08:41:46 INSTRUCTOR BRIDGE called with results From: BRANDIN KRUGER MD To: GRZEGORZ Kruger Nurse; Sent: 12/02/2015 09:52:38 INSTRUCTOR BR[facility]GE ! Show up: 12/02/2015 09:52:38 INSTRUCTOR BRIDGE Subject: Results Notification Actions: Notify patient of [...] (*) Present (None Seen - ) Source: [facility] POWERCHART Document Id: [id number] Brandin Malik M.D. - 12/02/2015 9:22 AM CST Results Notification Document Contains Addenda Addendum by IRVIN SALINAS LPN on 03 December 2015 08:41:25 INSTRUCTOR BR[facility] called with results From: BRANDIN KRUGER MD To: GRZEGORZ Kruger Nurse; Sent: 12/02/2015 09:22:24 INSTRUCTOR BR[facility]GE ! Show up: 12/02/2015 09:22:24 INSTRUCTOR BRIDGE Subject: Results Notification Actions: Notify patient of results Reminder Comments: ok Results: Date Result Name Value Ref Range 12/02/2015 09:15 Hgb 14.9 g/dL (12.0 - 15.5) [facility] Document Id: [id number] Jimmie - Irvin Salinas L.P.N. - 12/02/2015 8:50 AM CST PHQ-9 PHQ-9 Entered On: 12/02/2015 8:50 [facility] Performed On: 12/02/2015 8:50 [facility] by IRVIN SALINAS LPN PHQ-9 Little interest [...] all IRVIN SALINAS LPN - 12/02/2015 8:50 INSTRU[facility] BRIDGE Source: [facility] path intelligence Document Id: [id number] INSTRUCTOR BRIDGE!13 RUCTOR BRIDGE Miscellaneous - Irvin Salinas L.P.N. - 12/02/2015 8:50 AM CST Adult Fence Erector Supervisor Intake/History Adult Fence Erector Supervisor Intake/History Entered On: 12/02/2015 8:51 INSTRU[facility]GE Performed On: 12/02/2015 8:50 [facility] by IRVIN SALINAS LPN Intake Chief Complaint [...] kg/m2 IRVIN SALINAS LPN - 12/02/2015 8:50 [facility] General Info Information Given By : Patient Languages : Tamazight Is Patient Female and 13-50 no hysterectomy : No IRVIN SALINAS LPN - 12/02/2015 8:50 [facility] Subjective Pain Symptoms : No IRVIN SALINAS LPN - 12/02/2015 8:50 [facility] Dependent Habits Exposure to Tobacco Smoke : Other: former smoker Smoking Status : Former smoker Tobacco 2A : Yes Tobacco Use/Currently Using : No Tobacco Use/Last 30 Days : No Tobacco Use/Last 12 months : No IRVIN SALINAS LPN - 12/02/2015 8:50 [facility] Caffeine Use Grid Caffeine Use : Current Type : Coffee IRVIN SALINAS LPN - 12/02/2015 8:50 INSTRUCTOR BRIDGE Recreational Drug Use Grid Drug Use : None IRVIN SALINAS LPN - 12/02/2015 8:50 INSTRUCTOR BRIDGE Source: [facility] POWERCHART Document Id: [id number] INSTRUCTOR BRIDGE!38 RUCTOR BRIDGE Miscellaneous - Irvin Salinas L.P.N. - 12/02/2015 8:49 AM CST Health Assessment Health Assessment Entered On: 12/02/2015 8:49 [facility]GE Performed On: 12/02/2015 8:49 [facility]STRU[facility]GE by IRVIN SALINAS LPN Health Assessment Complete Health Assessment Complete or Modified : Annual Health Assessment Annual Health Assessment Completed : Yes IRVIN SALINAS LPN - 12/02/2015 8:49 INSTRU[facility] BR[facility]GE Nutrition Nutrition Risk Factors by History Adult : None IRVIN SALINAS LPN - 12/02/2015 8:49 [facility] Functional Current Daily Living Assistance : None IRVIN SALINAS LPN - 12/02/2015 8:49 INSTRU[facility] BR[facility]GE Dependent Habits Exposure to Tobacco Smoke : Other: former smoker Smoking Status : Former smoker Tobacco 2A : Yes Tobacco Use/Currently Using : No Tobacco Use/Last 30 Days : No Tobacco Use/Last 12 months : No IRVIN SALINAS NOUGAT CANDY MAKER HELPER - 12/02/2015 8:49 INSTRU[facility]GE Caffeine Use Grid Caffeine Use : Current Type : Coffee IRVIN SALINAS NOUGAT CANDY MAKER HELPER - 12/02/2015 8:49 INSTRU[facility] BR[facility]GE Alcohol Use : No IRVIN SALINAS NOUGAT CANDY MAKER HELPER - 12/02/2015 8:49 INSTRU[facility] BR[facility]GE Recreational Drug Use Grid Drug Use : None IRVIN SALINAS LPN - 12/02/2015 8:49 [facility] Psychosocial Domestic Abuse Concerns : None Behavioral Health Screen/Safety Assmt : No Samaritan Preference : Jainism IRVIN SALINAS LPN - 12/02/2015 8:49 [facility] Advance Directive Advanced Directives : No Advance Directive Additional Information : No IRVIN SALINAS LPN 12/02/2015 8:49 [facility]STRU[facility] Educ Needs Learning Style Preference Adult Grid Patient : Verbal explanation, Printed materials Family : Verbal explanation, Printed materials IRVIN SALINAS LPN - 12/02/2015 8:49 INSTRUCTOR BRIDGE Source: [facility] POWERCHART Document Id: [id number] INSTRUCTOR BRIDGE!34 RUCTOR BRIDGE Miscellaneous - Brandin Kruger M.D. - 12/02/2015 8:45 AM CST Ambulatory Patient Summary [place] [id number] [facility] [place] [id number] Visit Information Name: FRANCES MEEK [facility] Number: [id number] Current Date: 12/02/2015 08:45:37 Physicians [...] often feel anxious, nervous, and stressed? ?? [phone] [facility], [address] [place] [address], [place] [address]. All rights reserved. This information is not [...] dont have one. Go to [email or web address] and click on Create Your Account. Then, follow the directions to complete the online form. Youll be asked for your [facility] number which you can find at the top of this document. Your Goals/Additional instructions: This document has images extracted. Please consider using [facility] for all your patient education needs. Source: [facility] POWERCHART Document Id: [id number] RUCTOR BRIDGE Miscellaneous - Brandin Kruger M.D. - 12/02/2015 8:45 AM CST Ambulatory Discharge Medication List [address] [id number] Visit Information Name: FRANCES MEEK [facility] Number: [id number] Visit Date: 12/02/2015 08:45:35 Attending [...] Signed By: Signed On: Additional Information: Source: [facility] POWERCHART Document Id: [id number] RUCTOR BRIDGE documented in this encounter Plan of Treatment Upcoming Encounters Date Type Specialty Care Team Description 09/27/2022 Office Visit Dermatology Marianela Braden M.D. [address] [place], [place] [phone] (Wo rk) documented as of this encounter Procedures Procedure Name Priority Date/Time Associated Comments Diagnosis BACTERIAL CULTURE, Routine 12/02/2015 9:42 Result s for this AEROBIC, URINE AM [facility]GE procedure are in the results section. URINALYSIS, MIDSTREAM, Routine 12/02/2015 9:28 Re sults for this WITH CULTURE IF AM [facility]GE procedure ar e in INDICATED the results section. ALBUMIN, RANDOM, U Routine 12/02/2015 9:28 Result s for this AM [facility]GE procedure are i n the results section. THYROID FUNCTION Routine 12/02/2015 9:15 Results for this CASCADE, S AM [facility]GE procedure are i n the results section. THYROID AUTOABS PROFILE, Routine 12/02/2015 9:15 Results for this S AM [facility] procedure are i n the results section. HEMOGLOBIN, B Routine 12/02/2015 9:15 Results for this AM [facility] procedure are i n the results section. ALANINE AMINOTRANSFERASE Routine 12/02/2015 9:15 Results for this (ALT), S/P AM [facility] procedure are i n the results section. T4 (THYROXINE), FREE, S Routine 12/02/2015 9:15 R esults for this AM [facility]GE procedure are i n the results section. BASIC METABOLIC PANEL, Routine 12/02/2015 9:15 Re sults for this S/P AM [facility]STRUCTOR BRIDGE procedure are i n the results section. documented in this encounter Results Bacterial Culture, Aerobic, Urine (12/02/2015 9:42 AM INSTRUCTOR BRIDGE) [facility] Method Time Signature Bacterial POWERCHART Culture, Aerobic, Urine HXFinal Mixed alex. No POWERCHART further studies unless notified. [facility] POWERCHART Microbiology laboratory [phone]. Specimen Anatomical Collection Method Collection Time Receive d Time (Source) Location / / Volume Laterality Urine, First 12/02/2015 9:42 AM 6 9:42 Voided INSTRU[facility]GE AM [facility] Brandin Kruger M.D. LAB MICROBIOLOGY - GENERAL O RDERABLES Performing Organization Address City/State/ZIP Code Phon e Number POWERCHART (ABNORMAL) Urinalysis, Midstream, with culture if indicated (12/02/2015 9:28 AM INSTRUCTOR BRIDGE) [facility] Method Time Signature Clarity Clear Clear POWERCHART HXUr Color Yellow Colorless POWERCHART Specific 1.025 POWERCHART [place], POCT, U pH, POCT, Urine 7.0 <5.0 [...] Laterality Urine, First 12/02/2015 9:28 AM Voided [facility]GE Brandin Kruger M.D. LAB URINE ORDERABLES Performing Organization Address City/[facility] Phon e Number POWERCHART (ABNORMAL) Microalbumin, Random, Urine (12/02/2015 9:28 AM INSTRUCTOR BRIDGE) P athologist Signature HXU Albumin % 87.9 MGL POWERCHART Creatinine, 240.2 MGDL POWERCHART Random, U Albumin/Creatin 37 (H) 0 - 25 MGG POWERCHART ine Ratio Specimen (Source) Anatomical Collection Method Collection Time Re ceived Time Location / / Volume Laterality Urine 12/02/2015 9:28 AM INSTRU[facility] BRIDGE Brandin Kruger M.D. LAB URINE ORDERABLES Performing Organization Address [facility] Code Phon e Number POWERCHART Hemoglobin (12/02/2015 9:15 AM INSTRUCTOR BRIDGE) athologist Signature Hemoglobin 14.9 12.0 - 15.5 POWERCHART GDL Specimen (Source) Anatomical Collection Method Collection Time Re ceived Time Location / / Volume Laterality Blood 12/02/2015 9:15 AM INSTRU[facility] BRIDGE Brandin Kruger M.D. LAB BLOOD ADD-ON Performing Organization Address [facility] Phon e Number POWERCHART Thyroid Autoantibodies Profile (12/02/2015 9:15 AM INSTRUCTOR BRIDGE) [facility] gist Method Time Signature Thyroperoxidase Ab, 1.0 <9.0 POWERCHART S INTUML Comment: Test Performed by: [place] [address] Foot Caster: Mauro Springer II, M.D., Ph.D. Specimen Anatomical Collection Method Collection Time Receive d Time (Source) Location / / Volume Laterality Blood 12/02/2015 9:15 AM 6 8:14 INSTRUCTOR BRIDGE AM INSTRUCTOR BRIDGE Historical Provider LAB BLOOD NON ADD-ON Performing Organization Address City/[facility]/ZIP Code Phon e Number POWERCHART T4 (Thyroxine), Free (12/02/2015 9:15 AM INSTRUCTOR BRIDGE) athologist Signature T4 (Thyroxine), 1.3 0.9 - 1.7 POWERCHART Free, S NGDL Comment: Test Performed by: [place] [address] Foot Caster: Mauro Springer II, M.D., Ph.D. Specimen Anatomical Collection Method Collection Time Receive d Time (Source) Location / / Volume Laterality Blood 12/02/2015 9:15 AM 6 7:20 INSTRUCTOR BRIDGE AM INSTRUCTOR BRIDGE Historical Provider LAB BLOOD ADD-ON Performing Organization Address [facility] Phon e Number POWERCHART (ABNORMAL) Thyroid Function [place] (12/02/2015 9:15 AM INSTRUCTOR BRIDGE) athologist Signature TSH, Sensitive 5.2 (H) 0.3 - 4.2 POWERCHART MIUL Comment: Test Performed by: [place] [address] Foot Caster: Mauro Springer II, M.D., Ph.D. Specimen (Source) Anatomical Collection Method Collection Time Re ceived Time Location / / Volume Laterality Blood 12/02/2015 9:15 AM INSTRUCTOR BRIDGE Brandin Kruger M.D. LAB BLOOD ADD-ON Performing Organization Address [facility]/ZIP Code Phon e Number POWERCHART (ABNORMAL) BMP (Basic Metabolic Panel) (12/02/2015 9:15 AM INSTRUCTOR BRIDGE) athologist Signature Anion Gap 12 7 - [...] POWERCHART MMOLL HXeGFR (MDRD) 60 >=60 POWERCHART [id number] eGFR >60 >=60 POWERCHART Black/ [id number] [place] Specimen (Source) Anatomical Collection Method Collection Time Re ceived Time Location / / Volume Laterality Blood 12/02/2015 9:15 AM INSTRUCTOR BRIDGE Brandin Kruger M.D. LAB BLOOD ADD-ON Performing Organization Address City/State/ZIP Code Phon e Number POWERCHART ALT (Alanine Aminotransferase) (12/02/2015 9:15 AM INSTRUCTOR BRIDGE) P athologist Signature Alanine 20 7 - 45 POWERCHART Amniotransferas UNITL e, LD Specimen (Source) Anatomical Collection Method Collection Time Re ceived Time Location / / Volume Laterality Blood 12/02/2015 9:15 AM INSTRUCTOR BRIDGE Brandin Kruger M.D. LAB BLOOD ADD-ON Performing Organization Address City/State/ZIP Code Phon e Number POWERCHART documented in this encounter Visit Diagnoses Not on filedocumented in this encounter Additional Health Concerns Assessment Noted Time PHQ-9 Depression Total Score: 1 12/02/2015 8:50 AM INSTRUCTOR BRIDGE documented as of this encounter
--- OUTSIDE RECORDS SUMMARY | 2022-08-16 13:24 | XMS_ITS | Encounter Summary ---
:1945 Author Organization [facility] Address [address] [place] [address] Care Team Providers Name Role Phone Unavailable Primary Care Provider Unavailable Encounter Details Date Type Department Care Team Description 03/29/2016 Hospital Encounter HX [facility] Naren Ervin M.D. [address] [place] [address] 021 (Wo rk) Social History Tobacco Use [...] indicates had A1c done in April with nurse educator done through her pharmacy, also had medication changes at that time. Pt encouraged to contact insurance andrill determine further coverage. Pt will call clinic to scheduled once has recieved information frominsurance. Electronically Signed By: DARREN MCDONALD LPN On: 07/22/2016 10:04 AM Source: [facility] POWERCHART Document Id: [id number] documented in this encounter Miscellaneous Notes Telephone Encounter - Conversion, Historical Provider Ser - 04/13/2016 4:11 PM CDT *Phone Message From: KONRAD HAJI (GRZEGORZ Carrasquillo Boat Dispatcher) To: GRZEGORZ Kruger Nurse; Sent: 04/13/2016 16:11:21 CDT Subject: *Phone Message Caller is: ( x) Patient ( ) Mother ( ) Father ( ) Spouse ( ) Daughter ( ) Son ( ) Pharmacy ( ) Other: Physician: Patient MRN #: Reason for Call: Please call regarding a perscription. She needs to dicuss. [phone] Message: Advice/Action: Source used: ( ) Verbalizes [...] back cell phone number ( ) [facility] Document Id: [id number] documented in this encounter Plan of Treatment Upcoming Encounters Date Type Specialty Care Team Description 09/27/2022 Office Visit Dermatology Marianela Braden M.D. [address] [place], [place] [phone] (Wo rk) documented as [...] Total Score: 1 12/02/2015 8:50 AM TECHNICAL RESEARCH SCIENTIST documented as of this encounter
--- OUTSIDE RECORDS SUMMARY | 2022-08-16 13:24 | XMS_ITS | Encounter Summary ---
:1945 Author Organization [facility] Address [address] [place] [address] Care Team Providers Name Role Phone Unavailable Primary Care Provider Unavailable Encounter Details Date Type Department Care Team Description 12/23/2014 Hospital Encounter HX [facility] Iona Garcia, FREDIS, C.N.P. [address] [place] [address] (Wo rk) Social History Tobacco Use Types Packs/Day Years Used Date Smoking Tobacco: Never Assessed Sex Assigned at Date Recorded Not on file documented as of this encounter Last Filed Vital Signs Vital Sign Reading Time Taken Comments Blood Pressure 136/68 12/23/2014 9:40 AM CHEMICAL ENGINEERING TECHNOLOGIST Pulse 68 12/23/2014 9:36 AM CHEMICAL ENGINEERING TECHNOLOGIST Temperature - - Respiratory Rate 20 12/23/2014 9:36 AM CHEMICAL ENGINEERING TECHNOLOGIST Oxygen Saturation - - Inhaled Oxygen Concentration - - Weight 93.4 kg (205 lb 14.6 oz) 12/23/2014 9:36 AM CHEMICAL ENGINEERING TECHNOLOGIST Height 160 cm (5' 2.99) 12/23/2014 9:40 AM CHEMICAL ENGINEERING TECHNOLOGIST Body Mass Index 36.48 12/23/2014 9:36 AM CHEMICAL ENGINEERING TECHNOLOGIST documented in this encounter Medications at Time of Discharge Medication Sig Dispensed Refills Start Date End Date aspirin [address] tablet Take 1 tablet by mouth 0 03/14/2014 daily. documented as of this encounter Progress Notes Argelia Garcia, FREDIS, C.N.P. - 12/23/2014 9:14 AM CST [id number] CHIEF COMPLAINT/REASON FOR VISIT Diabetes type 2. [...] had dilated eye exam this summer in [place]. Will call for record of that. MEDICATIONS [...] of that visit from Dr. Aguila in [place]. 4. Diet was discussed at length and all of her questions were answered. Total time spent with the patient 25 minutes, 20 minutes of it counseling and coordinating care including diabetes education on diet and blood glucose testing. Argelia Garcia CNP/cipriano Electronically Signed By: ARGELIA GARCIA CNP On: 12/23/2014 12:40 PM Source: [facility] [id number] Document Id: [id number] ICAL ENGINEERING TECHNOLOGIST documented in this encounter Nursing Notes Argelia [...] or tender areas of the foot ?? [phone] [facility], [address] [place] [address]. All rights reserved. This information is not intended as a substitute for professional medical care. Always follow your healthcare professional's instructions. [facility] Document Id: [id number] ICAL ENGINEERING TECHNOLOGIST Argelia Garcia APRN, C.N.P. - 12/23/2014 10:10 AM CST Ambulatory Patient Education The following Patient Education Materials have been given to the patient: Patient Education Materials: [facility] Document Id: [id number] ICAL ENGINEERING TECHNOLOGIST documented in this encounter Miscellaneous Notes Miscellaneous - Argelia Garcia APRN, C.N.P. - 12/23/2014 10:11 AM CHEMICAL ENGINEERING TECHNOLOGIST Ambulatory Patient Summary [address] [id number] Visit Information Name: FRANCES HAGER [facility] Number: [id number] Current Date: 12/23/2014 10:11:07 Physicians [...] or tender areas of the foot ?? [phone] [facility], [address] [place] [address]. All rights reserved. This information is not intended as a substitute for professional medical care. Always follow your healthcare professional's instructions. Your Goals/Additional instructions: Source: [facility] POWERCHART Document Id: [id number] ICAL ENGINEERING TECHNOLOGIST Miscellaneous - Argelia Garcia APRN, C.N.P. - 12/23/2014 10:11 AM CHEMICAL ENGINEERING TECHNOLOGIST Ambulatory Discharge Medication List [address] [id number] Visit Information Name: FRANCES HAGER [facility] Number: [id number] Visit Date: 12/23/2014 10:11:05 Attending Provider: [facility]IA GARCIA [facility] Primary Care Provider: BRANDIN KRUGER MD [...] of emergency. Electronically Signed By: ARGELIA GARCIA [facility] Signed On:23-DEC-2014 10:10:29 Additional Information: Source: [facility] POWERCHART Document Id: [id number] ICAL ENGINEERING TECHNOLOGIST Miscellaneous - Argelia Garcia APRN, C.N.P. - 12/23/2014 10:07 AM CHEMICAL ENGINEERING TECHNOLOGIST Quality Measures Quality Measures Entered On: 12/23/2014 10:07 CHEMICAL ENGINEERING TECHNOLOGIST Performed On: 12/23/2014 10:07 CHEMICAL ENGINEERING TECHNOLOGIST by ARGELIA GARCIA CNP Diabetes Date of Last Foot Exam : 12/23/2014 CHEMICAL ENGINEERING TECHNOLOGIST Date of Last Diabetes Education : 12/23/2014 CHEMICAL ENGINEERING TECHNOLOGIST ARGELIA GARCIA CNP - 12/23/2014 10:07 CHEMICAL ENGINEERING TECHNOLOGIST Foot Exam Grid Left foot exam Right foot exam Dorsalis Pedis Pulse : Normal Normal Capillary Refill : Less than 3 seconds Less than 3 seconds 10 gm Monofilament Sensation Check : Intact Intact ARGELIA GARCIA CNP - 12/23/2014 10:07 CHEMICAL ENGINEERING TECHNOLOGIST ARGELIA GARCIA CNP - 12/23/2014 10:07 CHEMICAL ENGINEERING TECHNOLOGIST Source: [facility] [employer] Document Id: [id number] CHEMICAL ENGINEERING TECHNOLOGIST!13 ICAL ENGINEERING TECHNOLOGIST Jimmie - Blanca Fitch L.P.NLori - 12/23/2014 9:40 AM CST Ambulatory Vitals Height Weight Ambulatory Vitals Height Weight Entered On: 12/23/2014 9:40 CHEMICAL ENGINEERING TECHNOLOGIST Performed On: 12/23/2014 9:40 CHEMICAL ENGINEERING TECHNOLOGIST by BLANCA FITCH LPN Vitals/Ht/Wt Systolic Blood Pressure : 136 mmHg Diastolic Blood Pressure : 68 mmHg NIBP Mean : 91 mmHg BP Location : Right upper extremity Blood Pressure Cuff Size : Large Height : 160 cm(Converted to: 5 ft 3 inch(es), 63 inch(es)) BLANCA FITCH LPN - 12/23/2014 9:40 CHEMICAL ENGINEERING TECHNOLOGIST Source: [facility] [employer] Document Id: [id number] CHEMICAL ENGINEERING TECHNOLOGIST!8 ICAL ENGINEERING TECHNOLOGIST Miscellaneous - Blanca Fitch L.P.NLori - 12/23/2014 9:36 AM CST Adult Supervisor Rose Grading Intake/History Adult Supervisor Rose Grading Intake/History Entered On: 12/23/2014 9:38 CHEMICAL ENGINEERING TECHNOLOGIST Performed On: 12/23/2014 9:36 CHEMICAL ENGINEERING TECHNOLOGIST by BLANCA FITCH LPN Intake Chief Complaint [...] kg/m2 BLANCA FITCH LPN - 12/23/2014 9:36 CHEMICAL ENGINEERING TECHNOLOGIST General Info Information Given By : Patient Preferred Communication Mode : Verbal Languages : Bel[place]ian Is Patient Female and 13-50 no hysterectomy : No BLANCA FITCH LPN - 12/23/2014 9:36 CHEMICAL ENGINEERING TECHNOLOGIST Subjective Pain Symptoms : No BLANCA FITCH LPN - 12/23/2014 9:36 CHEMICAL ENGINEERING TECHNOLOGIST Dependent Habits Tobacco Use/Currently Using : No Exposure to Tobacco Smoke : Other: former smoker Smoking Status : Former smoker BLANCA FITCH LPN - 12/23/2014 9:36 CHEMICAL ENGINEERING TECHNOLOGIST Caffeine Use Grid Caffeine Use : Current Type : Coffee BLANCA FITCH LPN - 12/23/2014 9:36 CHEMICAL ENGINEERING TECHNOLOGIST Recreational Drug Use Grid Drug Use : None BLANCA FITCH LPN - 12/23/2014 9:36 CHEMICAL ENGINEERING TECHNOLOGIST ID Screen Drug Resistant Organism : Yes Travel Within Last 21 Days : No BLANCA FITCH LPN - 12/23/2014 9:36 CHEMICAL ENGINEERING TECHNOLOGIST [facility] [employer] Document Id: [id number] CHEMICAL ENGINEERING TECHNOLOGIST!39 ICAL ENGINEERING TECHNOLOGIST Miscellaneous - Blanca Fitch L.P.NLori - 06/18/2014 11:43 AM CDT Quality Measures Quality Measures Entered On: 12/23/2014 11:44 CHEMICAL ENGINEERING TECHNOLOGIST Performed On: 06/18/2014 11:43 CDT by BLANCA FITCH LPN Diabetes Date of Last Eye Exam : 06/18/2014 CDT BLANCA FITCH LPN - 12/23/2014 11:43 CHEMICAL ENGINEERING TECHNOLOGIST Source: [facility] POWERCHART Document Id: [id number] CHEMICAL ENGINEERING TECHNOLOGIST!3 ICAL ENGINEERING TECHNOLOGIST documented in this encounter Plan of Treatment Upcoming Encounters Date Type Specialty Care Team Description 09/27/2022 Office Visit Dermatology Marianela Braden M.D. [address] [place], [place] [phone] (Wo rk) documented as of this encounter Visit Diagnoses Not on filedocumented in this encounter Additional Health Concerns Assessment Noted Time PHQ-9 Depression Total Score: 3 05/05/2014 7:55 AM CDT documented as of this encounter
--- OUTSIDE RECORDS SUMMARY | 2022-08-16 13:24 | XMS_ITS | Encounter Summary ---
:1945 Author Organization [facility] Address [address] [place] [address] Care Team Providers Name Role Phone Unavailable Primary Care Provider Unavailable Encounter Details Date Type Department Care Team Description 11/27/2014 Hospital Encounter HX [facility] INTERNMED Jairo Xiong M.D. [address] [place] [address] [phone] (Wo rk) Social History Tobacco Use Types Packs/Day Years Used Date Smoking Tobacco: Never Assessed Sex Assigned at Date Recorded Not on file documented as of this encounter Last Filed Vital Signs Vital Sign Reading Time Taken Comments Blood Pressure 110/64 11/27/2014 8:27 AM [employer] Pulse 60 11/27/2014 8:27 AM [employer]IONER Temperature - - Respiratory Rate 16 11/27/2014 8:27 AM [employer] COMMISSIONER Oxygen Saturation - - Inhaled Oxygen Concentration - - Weight 90 kg (198 lb 6.6 oz) 11/27/2014 8:27 AM [employer] Height 159 cm (5' 2.6) 11/27/2014 8:27 AM [employer]IONER Body Mass Index 35.6 11/27/2014 8:27 AM [employer] COMMISSIONER documented in this encounter Medications at Time of Discharge Medication Sig Dispensed Refills Start Date End Date aspirin [address] tablet Take 1 tablet by mouth 0 03/14/2014 daily. documented as of this encounter H&P Notes Brandin Xiong M.D. - 11/27/2014 8:18 AM CST [id number] Preventive medicine with acute problems. Acute problems: 1. She asked about her diagnosis of alcoholism. She is surprised by it because she has quit drinkingand has no compulsion to start drinking again. I find her much better off alcohol, and I do not disagree with the diagnosis that was made down at [place] and then carried on at the [facility]. The fact that she has no hankering [...] Hypertension. 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 [place] teeth, top and bottom. NECK: Supple, no [...] for a mammogram, having done them at [facility] in the past, and a DEXA scan. Her orthopedic doctor, after her shoulder surgery, thinks she should wait untilthe spring, so I will schedule her in 4 months for both a screening DEXA scan and a screening mammogram, and she will transfer that care here instead of going up to the [facility] to do her mammogram. Labstoday: She had an ALT, BMP, hemoglobin, hemoglobin A1c, lipid panel, TSH, UA with microalbumin, and UA with reflux to culture. We will call her with results. She is current on immunizations completely and on colonoscopy. Brandin Xiong M.D./cipriano Electronically Signed By: BRANDIN XIONG MD On: 11/27/2014 12:46 PM Source: [facility] MHSDOLBEYNONRADSYS Document Id: [id number] [employer] COMMISSIONER documented in this encounter Miscellaneous Notes Miscellaneous - Shani Hanson R.N. - 12/15/2014 10:47 AM CST metformin Document Contains Addenda Addendum by BRANDIN XIONG MD on 15 December 2014 11:02:00 [employer] COMMISSIONER From: BRANDIN XIONG MD Sent: 12/15/2014 11:01:59 [employer] COMMISSIONER Subject: RE:metformin Approved Order:metFORMIN (metFORMIN 500 mg oral tablet) 1 tab(s) PO Daily Qty: 90 tab(s) Refills: 1 Substitutions Allowed Route To Pharmacy - [id number] Signed by BRANDIN XIONG MD 12/15/2014 11:01:53 From: SHANI HANSON (FB Russell Medication Refill) To: BRANDIN XIONG MD; Sent: 12/15/2014 10:47:27 [employer] COMMISSIONER Subject: metformin On hold pending signature Order:metFORMIN (metFORMIN 500 mg oral tablet) 1 tab(s) PO Daily Qty: 90 tab(s) Refills: 1 Substitutions Allowed Route To Pharmacy - [facility] #[id number] Caller is: ( ) Patient ( ) Mother ( ) Father ( ) Spouse ( ) Daughter ( ) Son ( [facility] ) Pharmacy ( ) Other: Provider: kavita xiong Pharmacy: Name of Medications Needing Refill: metformin 500 mg Last Refill Date: 09/15/14 qty 180 Additional Information: med changed 1 tab po daily on 11/27/14.... 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 Snuff Box Finisher [id number] at 04/02/2017 1:54 PM CDT Brandin Malik M.D. - 12/01/2014 7:55 AM CST Results Notification Document Contains Addenda Addendum by IRVIN SALINAS LPN on 01 December 2014 13:18:31 [employer] COMMISSIONER called with results From: BRANDIN XIONG MD To: GRZEGORZ Xiong Nurse; Sent: 12/01/2014 07:55:07 [employer] COMMISSIONER ! Show up: 12/01/2014 07:55:07 [employer] COMMISSIONER Subject: Results Notification Actions: Notify patient of results Reminder Comments: ok Results: Date Result Name Value Ref Range 11/27/2014 09:13 U Albumin 48 mg/dL 11/27/2014 09:13 U Creatinine 214 mg/dL 11/27/2014 09:13 U Alb/Creatinine Ratio 22 mg/gm (0 - 25) Source: [facility] POWERCHART Document Id: [id number] Electronically signed by [facility], [facility] Snuff Box Finisher [id number] at 04/02/2017 1:54 PM CDT Brandin Malik M.D. - 11/28/2014 9:47 AM CST Results Notification Document Contains Addenda Addendum by FREDERIC JIMENEZ LPN on 28 November 2014 10:27:18 [employer] COMMISSIONER Patient informed of results. Addendum by FREDERIC JIMENEZ LPN on 28 November 2014 10:15:59 [employer] COMMISSIONER Left message for patient to return my call. From: BRANDIN XIONG MD To: GRZEGORZ Xiong Nurse; Sent: 11/28/2014 09:47:16 [employer] COMMISSIONER ! Show up: 11/28/2014 09:47:16 [employer] COMMISSIONER Subject: Results Notification Actions: Notify patient of results Reminder Comments: ok Results: Date Result Name Value Ref Range 11/27/2014 09:07 TSH 2.81 mIU/L (0.27 - 4.20) Source: [facility] POWERCHART Document Id: [id number] Electronically signed by Conversion, [facility] Snuff Box Finisher [id number] at 04/02/2017 1:54 PM CDT Brandin Malik M.D. - 11/28/2014 9:46 AM CST Results Notification Document Contains Addenda Addendum by BRANDIN XIONG MD on 01 December 2014 07:56:09 [employer] COMMISSIONER From: BRANDIN XIONG MD To: BRANDIN XIONG MD; Sent: 12/01/2014 07:56:09 [employer] COMMISSIONER Show up: 12/01/2014 07:56:00 [employer] COMMISSIONER Subject: RE: Results Notification may stop Addendum by FREDERIC JIMENEZ LPN on 28 November 2014 10:26:57 [employer] COMMISSIONER Patient notified of results. Patient would like to know if she is to continue Vitamin B12? She forgot to ask during her visit. Please advise. Addendum by FREDERIC JIMENEZ LPN on 28 November 2014 10:16:08 [employer] COMMISSIONER Left message for patient to return my call. From: BRANDIN XIONG MD To: GRZEGORZ Xiong Nurse; Sent: 11/28/2014 09:46:58 [employer] COMMISSIONER ! Show up: 11/28/2014 09:46:58 [employer] COMMISSIONER Subject: Results Notification Actions: Notify patient of results Reminder Comments: no growth Results: Date Result Type Ind Result Name MBO Review Culture Urine Source: [facility] [employer] SolutionsCHART Document Id: [id number] Electronically signed by Conversion, [facility] Snuff Box Finisher [id number] at 04/02/2017 1:54 PM CDT Brandin Malik M.D. - 11/27/2014 10:56 AM CST Results Notification Document Contains Addenda Addendum by IRVIN SALINAS LPN on 27 November 2014 16:25:12 [employer] COMMISSIONER called with results From: BRANDIN XIONG MD To: GRZEGORZ Xiong Nurse; Sent: 11/27/2014 10:56:50 [employer] COMMISSIONER ! Show up: 11/27/2014 10:56:50 [employer] COMMISSIONER Subject: Results Notification Actions: Notify patient of [...] 100) 11/27/2014 09:07 Chol/HDL Ratio 3 Source: [facility] POWERCHART Document Id: [id number] Electronically signed by Conversion, [facility] Sn[employer] Box Finisher [id number] at 04/02/2017 1:54 PM CDT Brandin Malik M.D. - 11/27/2014 10:10 AM CST Results Notification Document Contains Addenda Addendum by IRVIN SALINAS LPN on 27 November 2014 16:25:46 [employer] COMMISSIONER called with results From: BRANDIN XIONG MD To: GRZEGORZ Xiong Nurse; Sent: 11/27/2014 10:10:08 [employer] COMMISSIONER ! Show up: 11/27/2014 10:10:08 [employer] COMMISSIONER Subject: Results Notification Actions: Notify patient of [...] 6.0 % A1C ( - <=5.6) Source: [facility] POWERCHART Document Id: [id number] Electronically signed by Antonette, [facility] Snuff Box Finisher [id number] at 04/02/2017 1:54 PM CDT Brandin Malik M.D. - 11/27/2014 9:40 AM CST Results Notification Document Contains Addenda Addendum by IRVIN SALINAS LPN on 27 November 2014 16:25:59 [employer] COMMISSIONER called with results From: BRANDIN XIONG MD To: GRZEGORZ Xiong Nurse; Sent: 11/27/2014 09:40:05 [employer] COMMISSIONER ! Show up: 11/27/2014 09:40:05 [employer] COMMISSIONER Subject: Results Notification Actions: Notify patient of [...] Hgb 14.2 g/dL (12.0 - 15.5) Source: [facility] POWERCHART Document Id: [id number] Electronically signed by Antonette, [facility] Snuff Box Finisher [id number] at 04/02/2017 1:54 PM CDT Miscellaneous - Brandin Xiong M.D. - 11/27/2014 9:02 AM CST Ambulatory Patient Summary [address] [id number] Visit Information Name: FRANCES HAGER [facility] Number: [id number] Current Date: 11/27/2014 09:02:32 Physicians [...] local Clinic if further appointment detail needed. [id number] Your High Blood Pressure Risk Factors Risk [...] often feel anxious, nervous, and stressed? ?? [phone] [facility], [address] [place] [address], [place] [address]. All rights reserved. This information is not intended as a substitute for professional medical care. Always follow your healthcare professional's instructions. Your Goals/Additional instructions: This document has images extracted. Please consider using [employer] for all your patient education needs. Source: [facility] POWERCHART Document Id: [id number] ER[employer] RESOURCES COMMISSIONER Miscellaneous - Brandin Xiong M.D. - 11/27/2014 9:02 AM CST Ambulatory Discharge Medication List [address] [id number] Visit Information Name: FRANCES HAGER [facility] Number: [id number] Visit Date: 11/27/2014 09:02:30 Attending [...] MD Signed On:27-NOV-2014 09:02:04 Additional Information: Source: [facility] POWERCHART Document Id: [id number] [employer] COMMISSIONER Irvin Her L.P.NLori - 11/27/2014 8:30 AM CST Health Assessment Health Assessment Entered On: 11/27/2014 8:30 [employer] COMMISSIONER Performed On: 11/27/2014 8:30 [employer] COMMISSIONER by IRVIN SALINAS LPN Health Assessment Complete Health Assessment Complete or Modified : Annual Health Assessment Annual Health Assessment Completed : Yes IRVIN SALINAS LPN - 11/27/2014 8:30 [employer] COMMISSIONER Nutrition Nutrition Risk Factors by History Adult : None SALINAS, IRVINPIERO HIGH LPN - 11/27/2014 8:30 [employer] COMMISSIONER Functional Current Daily Living Assistance : Transportation IRVIN SALINAS LPN - 11/27/2014 8:30 [employer] COMMISSIONER Dependent Habits Tobacco Use/Currently Using : No Exposure to Tobacco Smoke : Other: former smoker Smoking Status : Never smoker IRVIN SALINAS LPN - 11/27/2014 8:30 [employer] COMMISSIONER Caffeine Use Grid Caffeine Use : Current Type : Coffee IRVIN SALINAS LPN - 11/27/2014 8:30 [employer] RESOURCES COMMISSIONER Recreational Drug Use Grid Drug Use : None IRVIN SALINAS LPN - 11/27/2014 8:30 CON[employer] RESOURCES COMMISSIONER Psychosocial Domestic Abuse Concerns : None Zoroastrianism Preference : No qualifying data available. SALINASIRVIN CHAMPION LPN - 11/27/2014 8:30 [employer]OURCES COMMISSIONER Advance Directive Advanced Directives : No Advance Directive Additional Information : No IRVIN SALINAS LPN - 11/27/2014 8:30 CON[employer] COMMISSIONER Educ Needs Learning Style Preference Adult Grid Patient : Verbal explanation, Printed materials Family : Verbal explanation, Printed materials SARAH IRVINPIERO HIGH LPN - 11/27/2014 8:30 [employer] COMMISSIONER Source: [facility] POWERCHART Document Id: [id number] CONSERVATION OF RESOURCES COMMISSIONER!29 ER[employer] OF RESOURCES COMMISSIONER Irvin Her L.P.N. - 11/27/2014 8:27 AM CST Adult Stroke Program Coordinator Intake/History Adult Stroke Program Coordinator Intake/History Entered On: 11/27/2014 8:30 [employer] COMMISSIONER Performed On: 11/27/2014 8:27 [employer]OURCES COMMISSIONER by IRVIN SALINAS LPN Intake Chief Complaint [...] kg/m2 IRVIN SALINAS LPN - 11/27/2014 8:27 [employer] COMMISSIONER General Info Information Given By : Patient Languages : Lithuanian Is Patient Female and 13-50 no hysterectomy : No IRVIN SALINAS LPN - 11/27/2014 8:27 [employer] COMMISSIONER Subjective Pain Symptoms : No IRVIN SALINAS LPN - 11/27/2014 8:27 [employer]OURCES COMMISSIONER Dependent Habits Tobacco Use/Currently Using : No Exposure to Tobacco Smoke : Other: former smoker Smoking Status : Never smoker IRVIN SALINAS LPN - 11/27/2014 8:27 [employer] RESOURCES COMMISSIONER Caffeine Use Grid Caffeine Use : Current Type : Coffee IRVIN SALINAS LPN - 11/27/2014 8:27 CON[employer] RESOURCES COMMISSIONER Recreational Drug Use Grid Drug Use : None IRVIN SALINAS LPN - 11/27/2014 8:27 CON[employer] RESOURCES COMMISSIONER ID Screen Drug Resistant Organism : Yes Travel Within Last 21 Days : No IRVIN SALINAS LPN - 11/27/2014 8:27 [employer]OURCES COMMISSIONER Source: [facility] POWERCHART Document Id: [id number] CONSERVATION OF RESOURCES COMMISSIONER!38 ER[employer] OF RESOURCES COMMISSIONER documented in this encounter Plan of Treatment Upcoming Encounters Date Type Specialty Care Team Description 09/27/2022 Office Visit Dermatology Marianela Braden M.D. [address] [place] [address] [phone] (Wo rk) documented as of this encounter Procedures Procedure Name Priority Date/Time Associated Comments Diagnosis BACTERIAL CULTURE, Routine 11/27/2014 9:14 Result s for this AEROBIC, URINE AM [employer]IONER procedure are in the results section. URINALYSIS, MIDSTREAM, Routine 11/27/2014 9:13 Re sults for this WITH CULTURE IF AM [employer] COMMISSIONER procedure ar e in INDICATED the results section. ALBUMIN, RANDOM, U Routine 11/27/2014 9:13 Result s for this AM [employer] COMMISSIONER procedure are i n the results section. LIPID PANEL, S Routine 11/27/2014 9:07 Results fo r this AM [employer] COMMISSIONER procedure are i n the results section. HEMOGLOBIN, B Routine 11/27/2014 9:07 Results for this AM [employer] COMMISSIONER procedure are i n the results section. ALANINE AMINOTRANSFERASE Routine 11/27/2014 9:07 Results for this (ALT), S/P AM [employer] COMMISSIONER procedure are i n the results section. THYROID-STIMULATING Routine 11/27/2014 9:07 Resul ts for this HORMONE-SENSITIVE AM [employer] COMMISSIONER procedure are in (S-TSH) the results section. HEMOGLOBIN A1C, B Routine 11/27/2014 9:07 Results for this AM [employer] COMMISSIONER procedure are i n the results section. BASIC METABOLIC PANEL, Routine 11/27/2014 9:07 Re sults for this S/P AM [employer] COMMISSIONER procedure are i n the results section. documented in this encounter Results Bacterial Culture, Aerobic, Urine (11/27/2014 9:14 AM [employer] COMMISSIONER) [facility] Time Signature Bacterial POWERCHART Culture, Aerobic, Urine HXFinal 3000 POWERCHART colonies/ml gram negative rods HXFinal No further POWERCHART studies done. Specimen Anatomical Collection Method Collection Time Receive d Time (Source) Location / / Volume Laterality Urine, First 11/27/2014 9:14 AM 5 9:14 Voided [employer] COMMISSIONER AM [employer]OURCES COMMISSIONER Brandin Xiong M.D. LAB MICROBIOLOGY - GENERAL O RDERABLES Performing Organization Address City/State/ZIP Code Phon e Number POWERCHART Microalbumin, Random, Urine (11/27/2014 9:13 AM [employer]OURCES COMMISSIONER) P athologist Signature HXU Albumin % 48 MGDL POWERCHART Creatinine, 214 MGDL POWERCHART Random, U Albumin/Creatin 22 0 - 25 MGGM POWERCHART ine Ratio Specimen (Source) Anatomical Collection Method Collection Time Re ceived Time Location / / Volume Laterality Urine 11/27/2014 9:13 AM [employer]OURCES COMMISSIONER Brandin Xiong M.D. LAB URINE ORDERABLES Performing Organization Address [facility] Phon e Number POWERCHART (ABNORMAL) Urinalysis, Midstream, with culture if indicated (11/27/2014 9:13 AM CONSERV[employer] OF RESOURCES COMMISSIONER) [facility] gist Method Time Signature HXUr Color Yellow Colorless POWERCHART Clarity Clear Clear POWERCHART Glucose Negative Negative POWERCHART MGDL HXBILIRUBIN Negative Negative POWERCHART Ketones, QL(U) Trace (A) Negative POWERCHART MGDL Specific 1.025 POWERCHART [place], POCT, U HXBLOOD Negative Negative POWERCHART pH, [...] Laterality Urine, First 11/27/2014 9:13 AM Voided [employer] RESOURCES COMMISSIONER Brandin Xiong M.D. LAB URINE ORDERABLES Performing Organization Address [facility] Phon e Number POWERCHART Hemoglobin (11/27/2014 9:07 AM CON[employer] OF RESOURCES COMMISSIONER) athologist Signature Hemoglobin 14.2 12.0 - 15.5 POWERCHART GDL Specimen (Source) Anatomical Collection Method Collection Time Re ceived Time Location / / Volume Laterality Blood 11/27/2014 9:07 AM CON[employer]OURCES COMMISSIONER Brandin Xiong M.D. LAB BLOOD ADD-ON Performing Organization Address [facility] Phon e Number POWERCHART Thyroid-Stimulating Hormone-Sensitive (s-TSH) (11/27/2014 9:07 AM [employer] COMMISSIONER) P athologist Signature TSH 2.81 0.27 - 4.20 POWERCHART (Thyrotropin) MIUL Specimen (Source) Anatomical Collection Method Collection Time Re ceived Time Location / / Volume Laterality Blood 11/27/2014 9:07 AM [employer]OURCES COMMISSIONER Brandin Xiong M.D. LAB BLOOD ADD-ON Performing Organization Address City/State/ZIP Code Phon e Number POWERCHART Lipid Panel (11/27/2014 9:07 AM CON[employer] OF RESOURCES COMMISSIONER) Analysis Performed At Patho logist Time Signature Cholesterol, Total 158 0 - 200 POWERCHART MGDL HX HDL 56.0 40.0 - POWERCHART 60.0 MGDL Triglycerides 143 0 - 150 POWERCHART MGDL Calculated LDL 73 0 - 100 POWERCHART MGDL Total 3 POWERCHART Cholesterol/HDL Ratio Specimen (Source) Anatomical Collection Method Collection Time Re ceived Time Location / / Volume Laterality Blood 11/27/2014 9:07 AM CON[employer] OF RESOURCES COMMISSIONER Brandin Xiong M.D. LAB BLOOD ADD-ON Performing Organization Address City/State/ZIP Code Phon e Number POWERCHART (ABNORMAL) BMP (Basic Metabolic Panel) (11/27/2014 9:07 AM CON[employer] RESOURCES COMMISSIONER) P athologist Signature BUN (Blood Urea 23 [...] MLMIN POWERCHART eGFR >60 >=60 POWERCHART Black/ [id number] [place] Glucose, 87 70 - 99 POWERCHART Fasting, S MGDL Specimen (Source) Anatomical Collection Method Collection Time Re ceived Time Location / / Volume Laterality Blood 11/27/2014 9:07 AM CON[employer] RESOURCES COMMISSIONER Brandin Xiong M.D. LAB BLOOD ADD-ON Performing Organization Address City/State/ZIP Code Phon e Number POWERCHART ALT (Alanine Aminotransferase) (11/27/2014 9:07 AM CON[employer] OF RESOURCES COMMISSIONER) P athologist Signature Alanine 26 9 - 52 POWERCHART Amniotransferas UNITL e, LD Specimen (Source) Anatomical Collection Method Collection Time Re ceived Time Location / / Volume Laterality Blood 11/27/2014 9:07 AM CON[employer] OF RESOURCES COMMISSIONER Brandin Xiong M.D. LAB BLOOD ADD-ON Performing Organization Address City/State/ZIP Code Phon e Number POWERCHART (ABNORMAL) Hemoglobin A1c (11/27/2014 9:07 AM CON[employer] OF RESOURCES COMMISSIONER) P athologist Signature Hemoglobin A1c, 6.0 (H) <=5.6 A1C POWERCHART B Specimen (Source) Anatomical Collection Method Collection Time Re ceived Time Location / / Volume Laterality Blood 11/27/2014 9:07 AM CON[employer] RESOURCES COMMISSIONER Brandin Xiong M.D. LAB BLOOD ADD-ON Performing Organization Address City/State/ZIP Code Phon e Number POWERCHART documented in this encounter Visit Diagnoses Not on filedocumented in this encounter Additional Health Concerns Assessment Noted Time PHQ-9 Depression Total Score: 3 05/05/2014 7:55 AM CDT documented as of this encounter
--- OUTSIDE RECORDS SUMMARY | 2022-08-16 13:25 | XMS_ITS | Encounter Summary ---
:1945 Author Organization [facility] Address [address] [place] [address] Care Team Providers Name Role Phone Unavailable Primary Care Provider Unavailable Encounter Details Date Type Department Care Team Description 07/08/[address] [facility] INTERNMED Jairo Kruger M.D. [address] [place] [address] 021 (Wo rk) Social History Tobacco Use [...] Kruger M.D. - 07/08/2014 9:40 AM CDT [id number] Patient presents today. We have a lot of things to do. She had a basal cell carcinoma removed from her right druze area, and there were continuous and interrupted [...] some changes in the meds. MEDICATIONS Per [facility] EMR. ALLERGIES Per [facility] EMR. SYSTEMS REVIEW Review of systems in all areas except as mentioned above is negative. PREVENTIVE SERVICES: Per [facility] EMR. Handwashing done prior to patient contact. PAST MEDICAL/SURGICAL HISTORY Per [facility] EMR. VITAL SIGNS Per [facility] EMR. PHYSICAL EXAMINATION HEENT: She had a large wound in her right druze area which had both interrupted and continuous [...] KRUGER MD On: 07/08/2014 11:31 AM Source: [facility] MHSDOLBEYNONRADSYS Document Id: [id number] documented in this encounter Miscellaneous Notes Miscellaneous - Irvin Salinas L.P.N. - 07/08/2014 10:01 AM CDT Adult Corporate Strategy Analyst Intake/History Adult Corporate Strategy Analyst Intake/History Entered On: 07/08/2014 10:04 CDT Performed [...] Clinic : 93.5 kg IRVIN SALINAS RAE LOCK AND DAM EQUIPMENT REPAIRER - 07/08/2014 10:01 CDT General Info Information Given By : Patient Languages : Syrian Is Patient Female and 13-50 no hysterectomy : IRVIN Irizarry LOCK AND DAM EQUIPMENT REPAIRER - 07/08/2014 10:01 CDT Subjective Pain Symptoms : IRVIN Irizarry LOCK AND DAM EQUIPMENT REPAIRER - 07/08/2014 10:01 CDT Dependent Habits Tobacco Use/Currently Using : No Exposure to Tobacco Smoke : Other: former smoker Smoking Status : Never smoker Alcohol Use : IRVIN Irizarry RAE LOCK AND DAM EQUIPMENT REPAIRER - 07/08/2014 10:01 CDT Caffeine Use Grid Caffeine Use : Current Type : Coffee IRVIN SALINAS RAE LOCK AND DAM EQUIPMENT REPAIRER - 07/08/2014 10:01 CDT Recreational Drug Use Grid Drug Use : None IRVIN SALINAS RAE [facility] - 07/08/2014 10:01 CDT Source: [facility] [place] Document Id: [id number] CDT!3 Telephone Encounter - Alexsandra Gavin R.N. [...] 12:30:30 CDT From: LEAH ADAM DO To: [facility] Nurse manganese heater; Sent: 05/30/2014 12:30:30 CDT Subject: RE: Provider Advice within 4 hours from the Nurse Call Center. This rash could be due to anything. She should be seen by a doctor today to get advice. From: ALEXSANDRA GAVIN RN ([facility] Nurse manganese heater) To: LEAH ADAM DO; Cc: [facility] Nurse manganese heater; Sent: 05/30/2014 10:36:16 CDT Subject: Provider Advice [...] out of the office until Monday. Calling from:[phone] NOTE: To see complete documentation of the patients symptoms, view the Expert RN note created on 05/30/14. This information is located in [employer]: 1. Go to Notes 2. Select Messages 3. Select Nurse Call Center Note 4. Find the correct date and click on it. Note will appear in viewing area 5. Please respond back to the [facility] Nurse Call Center Pool Source: [facility] POWERCHART Document Id: [id number] documented in this encounter Plan of Treatment Upcoming Encounters Date Type Specialty Care Team Description 09/27/2022 Office Visit Dermatology Marianela Braden M.D. [address] [place], [place] [phone] (Wo rk) documented as of this encounter Visit Diagnoses Not on filedocumented in this encounter Additional Health Concerns Assessment Noted Time PHQ-9 Depression Total Score: 3 05/05/2014 7:55 AM CDT documented as of this encounter
--- OUTSIDE RECORDS SUMMARY | 2022-08-16 13:25 | XMS_ITS | Encounter Summary ---
:1945 Author Organization [facility] Address [address] [place] [address] Care Team Providers Name Role Phone Unavailable Primary Care Provider Unavailable Encounter Details Date Type Department Care Team Description 04/14/2014 - Hospital Encounter HX RST [facility], 04/21/2014 ADDICTIONS Zander Samson M.D., M.S. [address] [place] [phone] Social History Tobacco Use Types Packs/Day Years [...] Office Visit Dermatology Marianela Braden M.D. [address] [place] [phone] (Wo rk) documented as of this encounter Visit Diagnoses Not on filedocumented in this encounter Additional Health Concerns Assessment Noted Time PHQ-9 Depression Total Score: 3 04/07/2014 12:09 PM CD T documented as of this encounter
--- OUTSIDE RECORDS SUMMARY | 2022-08-16 13:25 | XMS_ITS | Encounter Summary ---
:1945 Author Organization [facility] Address [address] [place] [address] Care Team Providers Name Role Phone Unavailable Primary Care Provider Unavailable Encounter Details Date Type Department Care Team Description 07/29/2014 Hospital Encounter HX [facility] INTERNMED Jairo Kruegr M.D. [address] [place] [address] 021 (Wo rk) Social History Tobacco Use [...] Kruger M.D. - 07/29/2014 8:22 AM CDT [id number] This is a preoperative examination for a rotator cuff repair of the left arm under the aegis of Dr. Andrew Brewer, performed in [facility] on August 08, 2014. MEDICATIONS 1. Exelon [...] Mouth without erythema or exudate. She has viejas dentition top and bottom. She is Mallampati [...] no medicines. Simply present to the [facility] with nothing to eat or drink. 5. [...] KRUGER MD On: 07/29/2014 10:03 AM Source: [facility] MHSDOLBEYNONRADSYIndigo Document Id: [id number] documented in this encounter Miscellaneous Notes Miscellaneous [...] Result Name MBO Review Culture Urine Source: [facility] POWERCHART Document Id: [id number] Electronically signed by Conversion, [facility] Sales Support Engineer [id number] at 04/04/2017 5:34 PM CDT Miscellaneous - [...] Lvl 9.3 mg/dL (8.5 - 10.5) Source: [facility] POWERCHART Document Id: [id number] Electronically signed by Antonette, [facility] Sales Support Engineer [id number] at 04/04/2017 5:34 PM CDT Miscellaneous - [...] 1.59 x10(9)/L (0.90 - 2.90) 07/29/2014 08:55 [place] Absolute 0.79 x10(9)/L (0.30 - 0.90) 07/29/2014 08:55 Eos Absolute 0.43 x10(9)/L (0.05 - 0.50) 07/29/2014 08:55 Baso Absolute 0.03 x10(9)/L (0.00 - 0.30) 07/29/2014 08:55 Differential? Auto Source[facility] Document Id: [id number] Electronically signed by Antonette [facility] Sales Support Engineer [id number] at 04/04/2017 5:34 PM CDT Miscellaneous - [...] SALINAS LPN - 07/29/2014 8:33 CDT Source: [facility] Document Id: [id number] CDT!10 Miscellaneous - Brandin Kruger M.D. - 07/29/2014 8:31 AM CDT Ambulatory Patient Summary [address] [phone] Visit Information Name: FRANCES HAGER [facility] Number: [id number] Current Date: 07/29/2014 08:31:13 Physicians [...] diabetes and lists emergency contact numbers ?? [phone] Ana Gilliam, [address] [place] [address], [place] [address]. All rights reserved. This information is not intended as a substitute for professional medical care. Always follow your healthcare professional's instructions. Your Goals/Additional instructions: This document has images extracted. Please consider using [facility] for all your patient education needs. Source: [facility] POWERCHART Document Id: [id number] Miscellaneous - rBandin Kruger M.D. - 07/29/2014 8:31 AM CDT Ambulatory Discharge Medication List [address] [id number] Visit Information Name: FRANCES HAGER [facility] Number: [id number] Visit Date: 07/29/2014 08:31:10 Attending [...] MD Signed On:29-JUL-2014 08:29:27 Additional Information: Source: [facility] POWERCHART Document Id: [id number] Miscellaneous - Irvin Salinas L.PLoriN. - 07/29/2014 8:29 AM CDT Adult Laser Systems Engineer Intake/History Adult Laser Systems Engineer Intake/History Entered On: 07/29/2014 8:33 CDT Performed On: 07/29/2014 8:29 CDT by IRVIN SALINAS LPN Intake Chief Complaint : Pre-op Dr Hao Grimes 08/08/14 left rotator cuff [place] Temperature Core : 36.6 DegC(Converted to: 97.9 [...] Index : 36.72 kg/m2 IRVIN SALINAS RAE SENIOR ESTIMATOR - 07/29/2014 8:29 CDT General Info Information Given By : Patient Languages : Vietnamese Is Patient Female and 13-50 no hysterectomy : No IRVIN SALINAS RAE SENIOR ESTIMATOR - 07/29/2014 8:29 CDT Subjective Pain Symptoms : No IRVIN SALINAS RAE SENIOR ESTIMATOR - 07/29/2014 8:29 CDT Dependent Habits Tobacco Use/Currently Using : No Exposure to Tobacco Smoke : Other: former smoker Smoking Status : Never smoker Alcohol Use : No SALINASIRVIN FRANCOIS LENNOX SENIOR ESTIMATOR - 07/29/2014 8:29 CDT Caffeine Use Grid Caffeine Use : Current Type : Coffee IRVIN SALINAS RAE SENIOR ESTIMATOR - 07/29/2014 8:29 CDT Recreational Drug Use Grid Drug Use : None IRVIN SALINAS LENNOX SENIOR ESTIMATOR - 07/29/2014 8:29 CDT Source: [facility] Document Id: [id number] CDT!38 documented in this encounter Plan of Treatment Upcoming Encounters Date Type Specialty Care Team Description 09/27/2022 Office Visit Dermatology Marianela Braden M.D. [address] [place], [place] [phone] (Wo rk) documented as [...] Culture, Aerobic, Urine (07/29/2014 9:51 AM CDT) [facility] Method Time Signature Bacterial POWERCHART Culture, Aerobic, Urine HXFinal Mixed alex. No POWERCHART further studies unless notified. [facility] POWERCHART Microbiology laboratory [phone] Specimen Anatomical Collection Method Collection Time Receive d Time (Source) Location / / Volume Laterality Micro Spec 07/29/2014 9:51 AM 4 9:51 CDT AM CDT Brandin Kruger M.D. LAB MICROBIOLOGY - GENERAL O RDERABLES Performing Organization Address City/[facility] Code Phon e Number POWERCHART (ABNORMAL) Urinalysis, Midstream, with culture if indicated (07/29/2014 9:43 AM CDT) [facility] Method Time Signature Source Clean Void POWERCHART Urine HXUr Color Yellow POWERCHART Clarity Slightly POWERCHART Cloudy (A) Glucose Negative MGDL POWERCHART HXBILIRUBIN Negative POWERCHART Ketones, QL(U) Negative MGDL POWERCHART Specific 1.020 POWERCHART [place], POCT, U HXBLOOD Negative POWERCHART pH, POCT, [...] M.D. LAB URINE ORDERABLES Performing Organization Address City/[facility] Code Phon e Number POWERCHART Automated [...] X109L Erythrocytes 4.52 3.90 - POWERCHART 5.03 [id number] Hemoglobin 13.1 12.0 - POWERCHART 15.5 GDL [...] M.D. LAB BLOOD ADD-ON Performing Organization Address City/State/[facility] Code Phon e Number [...]
--- OUTSIDE RECORDS SUMMARY | 2022-08-16 13:25 | XMS_ITS | Encounter Summary ---
:1945 Author Organization [facility] Address [address] [place] [address] Care Team Providers Name Role Phone Unavailable [...] Visit Dermatology Marianela Braden M.D. [address] [place], [place] [phone] (Wo rk) documented as of this encounter Visit Diagnoses Not on filedocumented in this encounter Additional Health Concerns Assessment Noted Time PHQ-9 Depression Total Score: 3 05/05/2014 7:55 AM CDT documented as of this encounter
--- OUTSIDE RECORDS SUMMARY | 2022-08-16 13:25 | XMS_ITS | Encounter Summary ---
:1945 Author Organization [facility] Address [address] [place] [address] Care Team Providers Name Role Phone Unavailable Primary Care Provider Unavailable Encounter Details Date Type Department Care Team Description 03/27/2014 Hospital Encounter HX [facility] INTERNMED Jairo Kruger M.D. [address] [place] [address] (Wo rk) Social History Tobacco Use [...] Kruger M.D. - 03/27/2014 9:10 AM CDT [id number] Patient presents today. She has maintained sobriety [...] they think probably April 07. MEDICATIONS Per [facility] EMR. ALLERGIES Per [facility] EMR. SYSTEMS REVIEW Review of systems in all areas except as mentioned above is negative. PREVENTIVE SERVICES: Per [facility] EMR. Handwashing done prior to patient contact. PAST MEDICAL/SURGICAL HISTORY Per [facility] EMR. VITAL SIGNS Per [facility] EMR. PHYSICAL EXAMINATION EENT: Conjunctiva and lids [...] KRUGER MD On: 03/27/2014 10:57 AM Source: [facility] MHSDOLBEYNONRADSYS Document Id: [id number] documented in this encounter Miscellaneous Notes Miscellaneous [...] mg/dL (1.7 - 2.3 - ) Source: [facility] POWERCHART Document Id: [id number] Miscellaneous - Brandin Kruger M.D. - 03/27/2014 [...] Lvl 9.8 mg/dL (8.5 - 10.5) Source: [facility] POWERCHART Document Id: [id number] Electronically signed by Antonette, [facility] Supervisor Plastering [id number] at 04/03/2017 8:26 PM CDT Miscellaneous - Brandin Kruger M.D. - 03/27/2014 9:41 AM CDT Ambulatory Patient Summary [address] [id number] Visit Information Name: FRANCES HAGER [facility] Number: [id number] Current Date: 03/27/2014 09:41:15 [...] Date Time Location Reason Provider 05/26/2014 13:15 [facility] guido Kruger MD, Brandin Bianchi Attention: Contact your local Clinic if further appointment detail needed. [id number] Your High Blood Pressure Risk Factors Risk [...] often feel anxious, nervous, and stressed? ?? [phone] Ana Gilliam, [address] [place] [address], [place] [phone]. All rights reserved. This information is not intended as a substitute for professional medical care. Always follow your healthcare professional's instructions. Your Goals/Additional instructions: This document has images extracted. Please consider using [employer] [facility] for all your patient education needs. Source: [facility] POWERCHART Document Id: [id number] Miscellaneous - Brandin Kruger M.D. - 03/27/2014 9:41 AM CDT Ambulatory Discharge Medication List [address] [id number] Visit Information Name: FRANCES HAGER [facility] Number: [id number] Visit Date: 03/27/2014 09:41:13 [...] MD Signed On:27-MAR-2014 09:40:21 Additional Information: Source: [facility] POWERCHART Document Id: [id number] Miscellaneous - Irvin Salinas L.P.N. - 03/27/2014 9:15 AM CDT Adult Seed Yeast Operator Intake/History Adult Seed Yeast Operator Intake/History Entered On: 03/27/2014 9:18 CDT Performed [...] Information Given By : Patient Languages : Gabonese IRVIN SALINAS LPN - 03/27/2014 9:15 CDT Subjective Pain Symptoms : No IRVIN SALINAS LPN - 03/27/2014 9:15 CDT Dependent Habits Tobacco Use/Currently Using : No Exposure to Tobacco Smoke : Other: former smoker Smoking Status : Never smoker Alcohol Use : No IRVIN SALINAS LPN - 03/27/2014 9:15 CDT Caffeine Use Grid Caffeine Use : Current Type : Coffee IRVIN SALINAS LITHOGRAPH PRINTER - 03/27/2014 9:15 CDT Recreational Drug Use Grid Drug Use : None IRVIN SALINAS LITHOGRAPH PRINTER - 03/27/2014 9:15 CDT Source: [facility] POWERCHART Document Id: [id number] CDT!35 documented in this encounter Plan of Treatment Upcoming Encounters Date Type Specialty Care Team Description 09/27/2022 Office Visit Dermatology Marianela Braden M.D. [address] [place] [phone] (Wo rk) documented as of [...] 2.3 POWERCHART MGDL Comment: Test Performed by: [address] [id number] Cream Dumper: Gustavo vargas III, M.D. Specimen (Source) Anatomical Collection Method Collection Time Re ceived Time Location / / Volume Laterality Blood 03/27/2014 9:49 AM CDT Brnadin Kruger M.D. LAB BLOOD ADD-ON Performing Organization [...]
--- OUTSIDE RECORDS SUMMARY | 2022-08-16 13:25 | XMS_ITS | Encounter Summary ---
:1945 Author Organization [facility] Address [address] [place] [address] Care Team Providers Name Role Phone Unavailable Primary Care Provider Unavailable Encounter Details Date Type Department Care Team Description 03/10/2014 Hospital Encounter HX [facility] INTERNMED Jairo Kruger M.D. [address] [place] [address] (Wo rk) Social History Tobacco Use [...] Body Mass Index 36.33 11/25/2013 9:03 AM CONSUMER EDUCATION SPECIALIST documented in this encounter Progress Notes Brandin Kruger M.D. - 03/10/2014 3:10 PM CDT [id number] DISCHARGE DATE 03/09/2014, from [facility]. ADMISSION [...] suspected orthostatic hypotension and found that at [place]. They removed her hydrochlorothiazide which was a [...] make her chemical dependency appointment anew at [place], as they canceled the appointment which was at 1:45 today, and that she is able to exercise at [facility] and proceed normally at this point with these changes in medications. MEDICATIONS Per [facility] EMR. ALLERGIES Per [facility] EMR. SYSTEMS REVIEW Review of systems in all areas except as mentioned above is negative. PREVENTIVE SERVICES: Per [facility] EMR. Handwashing done prior to patient contact. PAST MEDICAL/SURGICAL HISTORY Per [facility] EMR. VITAL SIGNS Per [facility] EMR. PHYSICAL EXAMINATION Not performed. IMPRESSION/REPORT/PLAN 1. [...] Apparently 1 week dry. She should call [place] and make a reappointment for the appointment with Chemical Dependency that they missed today. 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 Continue on Protonix and abstain from alcohol. 5. Hypertension. Blood pressure is likely to improve as she is off alcohol, so I will drop her atenolol from 50 twice a day to 50 once a day at [facility], effective today. The patient had a BMP today, will call with results. The patient should come see me 1 week after she has her chemical dependency appointment at [place]. TIME COMPONENT All of it counseling. Brandin Kruger M.D./cipriano Electronically Signed By: BRANDIN KRUGER MD On: 03/10/2014 08:32 PM Source: [facility] MHSDOLBEYNONRADSYS Document Id: [id number] documented in this encounter Miscellaneous Notes Miscellaneous [...] Lvl 9.3 mg/dL (8.5 - 10.5) Source: [facility] POWERCHART Document Id: [id number] Electronically signed by Antonette [facility] Web Content Producer [id number] at 04/04/2017 5:49 AM CDT Miscellaneous - Brandin Kruger M.D. - 03/10/2014 3:39 PM CDT Ambulatory Patient Summary [address] [id number] Visit Information Name: FRANCES HAGER [facility] Number: [id number] Current Date: 03/10/2014 15:39:38 [...] meals This is a CHANGE Routed to [address] [address] multivitamin (multivitamin) Oral, once a [...] Date Time Location Reason Provider 03/27/2014 09:[address] [facility] check on med Brandin Kruger MD 05/26/2014 13:[address] [facility] recheck Brandin Kruger MD Attention: Contact your local Clinic if further appointment detail needed. Your Goals/Additional instructions: Source: [facility] POWERCHART Document Id: [id number] Miscellaneous - Brandin Kruger M.D. - 03/10/2014 3:39 PM CDT Ambulatory Discharge Medication List [address] [id number] Visit Information Name: FRANCES HAGER [facility] Number: [id number] Visit Date: 03/10/2014 15:39:36 [...] meals This is a CHANGE Routed to [address] [address] multivitamin (multivitamin) Oral, once a day multivitamin [...] MD Signed On:10-MAR-2014 15:39:29 Additional Information: Source: [facility] POWERCHART Document Id: [id number] Miscellaneous - Irvin Salinas L.PLoriN. - 03/10/2014 3:17 PM CDT Adult Door Clamper Intake/History Adult Door Clamper Intake/History Entered On: 03/10/2014 15:18 CDT Performed [...] Given By : Patient Languages : Albanian IRVIN SALINAS LPN - 03/10/2014 15:17 CDT Subjective Pain Symptoms : IRVIN Irizarry LPN - 03/10/2014 15:17 CDT Dependent Habits Tobacco Use/Currently Using : No Exposure to Tobacco Smoke : Other: former smoker Smoking Status : Never smoker Alcohol Use : No IRVIN SALINAS LPN - 03/10/2014 15:17 CDT Caffeine Use Grid Caffeine Use : Current Type : Coffee IRVIN SALINAS TABLET MAKING MACHINE OPERATOR - 03/10/2014 15:17 CDT Recreational Drug Use Grid Drug Use : None IRVIN SALINAS JEFFREY - 03/10/2014 15:17 CDT Source: [facility] POWERCHART Document Id: [id number] CDT!30 documented in this encounter Plan of Treatment Upcoming Encounters Date Type Specialty Care Team Description 09/27/2022 Office Visit Dermatology Marianela Braden M.D. [address] [place] [phone] (Wo rk) documented as of this [...]
--- OUTSIDE RECORDS SUMMARY | 2022-08-16 13:25 | XMS_ITS | Encounter Summary ---
:1945 Author Organization [facility] Address [address] [place] [address] Care Team Providers Name Role Phone Unavailable Primary Care Provider Unavailable Encounter Details Date Type Department Care Team Description 08/05/2014 Hospital Encounter HX [facility] FBHB INTERNMED Jairo Kruger M.D. [address] [place] [address] 021 (Wo rk) Social History Tobacco Use [...] Kruger M.D. - 08/05/2014 9:13 AM CDT [id number] She presents for recheck. She has not had her surgery as that is happening in 9 days. She is going to have a left shoulder rotator cuff same-day surgery up in [place]. We have done the preop for that [...] that point in detail today. MEDICATIONS Per [facility] EMR. ALLERGIES Per [facility] EMR. SYSTEMS REVIEW Review of systems in all areas except as mentioned above is negative. PREVENTIVE SERVICES: Per [facility] EMR. Handwashing done prior to patient contact. PAST MEDICAL/SURGICAL HISTORY Per [facility] EMR. VITAL SIGNS Per [facility] EMR. PHYSICAL EXAMINATION She walked with an [...] is the way she was diagnosed at [facility] and I am complete concurrence with that. Time component 25 minutes, the majority counseling. Brandin Kruger M.D./cipriano Electronically Signed By: BRANDIN KRUGER MD On: 08/05/2014 12:41 PM Source: [facility] MHSDOLBEYNONRADSYS Document Id: [id number] documented in this encounter Miscellaneous Notes Telephone Encounter - Conversion, Historical Provider Ser - 08/20/2014 10:07 AM CDT *Phone Message Document Contains Addenda Addendum by IRVIN SALINAS LPN on 20 August 2014 10:34:21 CDT patient called Addendum by RBANDIN KRUGER MD on 20 August 2014 10:29:30 CDT From: BRANDIN KRUGER MD To: GRZEGORZ Kruger Nurse; Sent: 08/20/2014 10:29:30 CDT Subject: RE: *Phone Message yes Addendum by IRVIN SALINAS LPN on 20 August 2014 10:14:38 CDT From: IRVIN SALINAS LPN ( Brandin Kruger Nurse) To: BRANDIN KRUGER MD; Sent: 08/20/2014 10:14:38 CDT Subject: FW: *Phone Message From: KONRAD HAJI ([employer] [facility]) To: GRZEGORZ Kruger Nurse; Sent: 08/20/2014 10:07:05 [...] her back and let her know at [phone] Message: Advice/Action: Source used: ( ) Verbalizes [...] cell phone number ( ) Source: [facility] POWERCHART Document Id: [id number] Miscellaneous - Brandin Kruger M.D. - 08/05/2014 9:54 AM CDT Ambulatory Patient Summary [address] [id number] Visit Information Name: FRANCES HAGER [facility] Number: [id number] Current Date: 08/05/2014 09:54:23 Physicians [...] staff. For more information, contact the National [place] [employer] at [phone] or visit www.daniel.org. Get Prompt Medical Attention if any of the following occur: ?? Worsening depression or anxiety ?? Feeling out of control ?? Thoughts of harming yourself or another ?? Being unable to care for your self ?? [phone] [facility], [address] [place] [address], [place] [address]. All rights reserved. This information is not intended as a substitute for professional medical care. Always follow your healthcare professional's instructions. Your Goals/Additional instructions: Source: [facility] POWERCHART Document Id: [id number] Miscellaneous - Brandin Kruger M.D. - 08/05/2014 9:54 AM CDT Ambulatory Discharge Medication List [address] [id number] Visit Information Name: FRANCES HAGER [facility] Number: [id number] Visit Date: 08/05/2014 09:54:20 Attending [...] MD Signed On:05-AUG-2014 09:52:41 Additional Information: Source: [facility] POWERCHART Document Id: [id number] Miscellaneous - Irvin Salinas LLoriPLoriN. - 08/05/2014 9:19 AM CDT Adult Director Of Intercollegiate Athletics Intake/History Adult Director Of Intercollegiate Athletics Intake/History Entered On: 08/05/2014 9:21 CDT Performed [...] Weight Clinic : 95 kg SALINASDARIEN CHAMPIONPIERO HIHG [facility] - 08/05/2014 9:19 CDT General Info Information Given By : Patient Languages : Japanese Is Patient Female and 13-50 no hysterectomy : No SALINASIRVIN FRANCOIS [facility] - 08/05/2014 9:19 CDT Subjective Pain Symptoms : Taty SALINASIRVIN FRANCOIS [facility] - 08/05/2014 9:19 CDT Dependent Habits Tobacco Use/Currently Using : No Exposure to Tobacco Smoke : Other: former smoker Smoking Status : Never smoker Alcohol Use : Taty SWEENEYDARIEN FRANCOISPIERO HIGH [facility] - 08/05/2014 9:19 CDT Caffeine Use Grid Caffeine Use : Current Type : Coffee IRVIN SALINAS [facility] - 08/05/2014 9:19 CDT Recreational Drug Use Grid Drug Use : None SALINAS, IRVINPIERO HIGH [facility] - 08/05/2014 9:19 CDT Source: [employer] Document Id: [id number] CDT!33 documented in this encounter Plan of Treatment Upcoming Encounters Date Type Specialty Care Team Description 09/27/2022 Office Visit Dermatology Marianela Braden M.D. [address] [place], [place] [phone] (Wo rk) documented as of this encounter Visit Diagnoses Not on filedocumented in this encounter Additional Health Concerns Assessment Noted Time PHQ-9 Depression Total Score: 3 05/05/2014 7:55 AM CDT documented as of this encounter
--- OUTSIDE RECORDS SUMMARY | 2022-08-16 13:25 | XMS_ITS | Encounter Summary ---
:1945 Author Organization [facility] Address [address] [place] [address] Care Team Providers Name Role Phone Unavailable Primary Care Provider Unavailable Encounter Details Date Type Department Care Team Description 04/16/2014 - Hospital Encounter HX RST [facility], 04/23/2014 ADDICTIONS Zander Samson M.D., M.S. [address] [place] [phone] Social History Tobacco Use Types Packs/Day Years [...] Office Visit Dermatology Marianela Braden M.D. [address] [place] [phone] (Wo rk) documented as of this encounter Visit Diagnoses Not on filedocumented in this encounter Additional Health Concerns Assessment Noted Time PHQ-9 Depression Total Score: 3 04/07/2014 12:09 PM CD T documented as of this encounter
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
--- OUTSIDE RECORDS SUMMARY | 2022-08-16 13:25 | XMS_ITS | Encounter Summary ---
:1945 Author Organization [facility] Address [address] [place] [address] Care Team Providers Name Role Phone Unavailable Primary Care Provider Unavailable Encounter Details Date Type Department Care Team Description 08/26/[address] [facility] FBHB INTERNMED Jairo Kruger M.D. [address] [place] [address] (Wo rk) Social History Tobacco Use [...] Kruger M.D. - 08/26/2014 8:52 AM CDT [id number] She is checking after a visit to [...] do things like that. MEDICATIONS Per [facility] EMR. ALLERGIES Per [facility] EMR. SYSTEMS REVIEW Review of systems in all areas except as mentioned above is negative. PREVENTIVE SERVICES: Per [facility] EMR. Handwashing done prior to patient contact. PAST MEDICAL/SURGICAL HISTORY Per [facility] EMR. VITAL SIGNS Per [facility] EMR. PHYSICAL EXAMINATION Examination of her heel [...] KRUGER MD On: 08/27/2014 07:32 AM Source: [facility] MHSDOLBEYNONRADSYS Document Id: [id number] documented in this encounter Miscellaneous Notes Miscellaneous - Angelica Snyder R.N. - 12/18/2014 9:18 AM CST Med Management Document Contains Addenda Addendum by BRANDIN KRUGER MD on 18 December 2014 09:24:08 LOFT WORKER From: BRANDIN KRUGER MD Sent: 12/18/2014 09:24:07 LOFT WORKER Subject: RE:Med Management Approved Order:lisinopril (lisinopril 40 mg oral tablet) 1 tab(s) PO Daily Qty: 90 tab(s) Refills: 3 Substitutions Allowed Route To [id number] Signed by BRANDIN KRUGER MD 12/18/2014 09:24:03 From: ANGELICA SNYDER To: BRANDIN KRUGER MD; Sent: 12/18/2014 09:18:23 LOFT WORKER Subject: Med Management On hold pending signature Order:lisinopril (lisinopril 40 mg oral tablet) 1 tab(s) PO Daily Qty: 90 tab(s) Refills: 3 Substitutions All[address] Route To [id number] Caller is: ( ) [...] Call to Pharmacy ( ) Patient will continuous pickling line pickler Script ( ) Mail Rx to Patient Source: [facility] POWERCHART Document Id: [id number] Electronically signed by Antonette [facility] Central Office Operator Supervisor [id number] at 04/04/2017 12:55 AM CDT Miscellaneous - Shani Hanson RBridget. - 09/29/2014 3:48 PM CST lisinopril Document Contains Addenda Addendum by BRANDIN KRUGER MD on 29 September 2014 15:48:49 LOFT WORKER From: BRANDIN KRUGER MD Sent: 09/29/2014 15:48:48 LOFT WORKER Subject: RE:lisinopril Approved Order:lisinopril (lisinopril 20 mg oral tablet) 2 tab(s) PO Daily Qty: 180 tab(s) Refills: 2 Substitutions Allowed Route To Pharmacy [facility][id number] Signed by BRANDIN KRUGER MD 09/29/2014 15:48:44 From: SHANI HANSON ( [place] Medication Refill) To: BRANDIN KRUGER MD; Sent: 09/29/2014 15:48:22 LOFT WORKER Subject: lisinopril On hold pending signature Order:lisinopril (lisinopril 20 mg oral tablet) 2 tab(s) PO Daily Qty: 180 tab(s) Refills: 2 Substitutions All[address] Route To [facility][id number] Documented Discontinue:lisinopril (lisinopril 40 mg oral tablet) Signed by SHANI HANSON 09/29/2014 15:47:41 Caller is: ( ) Patient ( ) Mother ( ) Father ( ) Spouse ( ) Daughter ( ) [facility] ( [facility] ( ) Other: Provider: Candace Kruger Pharmacy: Name of Medications Needing Refill: Lisinopril 20 mg-2 tabs po daily.... Last Refill Date: 07/02/14 qty 180 Additional Information:Med in EMR as HX.... Last / Future Appointment: 08/26/14; 10/08/14 Disposition: ( x ) Send to Pharmacy ( ) Call to Pharmacy ( ) Patient will continuous pickling line pickler Script ( ) Mail Rxto Patient Source: [facility] POWERCHART Document Id: [id number] Electronically signed by Conversion, [facility] Central Office Operator Supervisor [id number] at 04/04/2017 12:55 AM CDT Brandin Malik [...] Acid 6.0 mg/dL (2.3 - 6.0) Source: [facility] [email or web address] Document Id: [id number] Electronically signed by Conversion, [facility] Central Office Operator Supervisor [id number] at 04/04/2017 12:55 AM CDT Brandin Malik M.D. - 08/26/2014 9:33 AM CDT Ambulatory Patient Summary [address] [id number] Visit Information Name: FRANCES HAGER [facility] Number: [id number] Current Date: 08/26/2014 09:33:08 [...] Appointments Date Time Location Provider 10/08/2014 09:30 [facility] Brandin Kruger MD Attention: Contact your [...] Certain fish (anchovy, sardine, nielson, mackerel) ?? [phone], [place] [address]. All rights reserved. This information is not intended as a substitute for professional medical care. Always follow your healthcare professional's instructions. Your Goals/Additional instructions: This document has images extracted. Please consider using [employer] for all your patient education needs. Source: [facility] POWERCHART Document Id: [id number] Miscellaneous - Brandin Kruger M.D. - 08/26/2014 9:33 AM CDT Ambulatory Discharge Medication List [place] [id number] Visit Information Name: FRANCES HAGER [facility] Number: [id number] Visit Date: 08/26/2014 09:33:05 [...] MD Signed On:26-AUG-2014 09:31:54 Additional Information: Source: [facility] POWERCHART Document Id: [id number] Miscellaneous - Irvin Salinas L.P.N. - 08/26/2014 8:58 AM CDT Adult Supply Tech Intake/History Adult Supply Tech Intake/History Entered On: 08/26/2014 9:00 CDT Performed [...] Information Given By : Patient Languages : Kazakh Is Patient Female and 13-50 no hysterectomy [...] SALINAS LPN - 08/26/2014 8:58 CDT Source: [facility] POWERCHART Document Id: [id number] CDT!34 documented in this encounter Plan of Treatment Upcoming Encounters Date Type Specialty Care Team Description 09/27/2022 Office Visit Dermatology Marianela Braden M.D. [address] [place], [place] [phone] (Wo rk) documented as [...]
--- OUTSIDE RECORDS SUMMARY | 2022-08-16 13:25 | XMS_ITS | Encounter Summary ---
:1945 Author Organization [facility] Address [address] [place] [address] Care Team Providers Name Role Phone Unavailable Primary Care Provider Unavailable Encounter Details Date Type Department Care Team Description 10/08/2014 Hospital Encounter HX [facility] INTERNMED Jairo Kruger M.D. [address] [place] [address] 021 (Wo rk) Social History Tobacco Use Types Packs/Day Years Used Date Smoking Tobacco: Never Assessed Sex Assigned at Date Recorded Not on file documented as of this encounter Last Filed Vital Signs Vital Sign Reading Time Taken Comments Blood Pressure 128/70 10/08/2014 9:28 AM RADIATOR MECHANIC Pulse 60 10/08/2014 9:28 AM RADIATOR MECHANIC Temperature - - Respiratory Rate - - Oxygen Saturation - - Inhaled Oxygen Concentration - - Weight 91 kg (200 lb 9.9 oz) 10/08/2014 9:28 AM RADIATOR MECHANIC Height 160 cm (5' 2.99) 10/08/2014 9:28 AM RADIATOR MECHANIC Body Mass Index 35.55 10/08/2014 9:28 AM RADIATOR MECHANIC documented in this encounter Medications at Time of Discharge Medication Sig Dispensed Refills Start Date End Date aspirin [address] tablet Take 1 tablet by mouth 0 03/14/2014 daily. documented as of this encounter Progress Notes Brandin Kruger M.D. - 10/08/2014 9:24 AM CST [id number] Document Contains Addenda REVISION HISTORY October 08, [...] will give thatto her today. MEDICATIONS Per [facility]. ALLERGIES Per [facility]. SYSTEMS REVIEW Review of systems in all areas except as mentioned above is negative. PREVENTIVE SERVICES: Per [facility]. Handwashing done prior to patient contact. PAST MEDICAL/SURGICAL HISTORY Per [facility]. VITAL SIGNS Per [facility]. PHYSICAL EXAMINATION EENT: Conjunctivae and lids [...] KRUGER MD On: 10/08/2014 02:08 PM Source: [facility] MHSDOLBEYNONRADSYS Document Id: [id number] ATOR MECHANIC documented in this encounter Miscellaneous Notes Telephone Encounter - Conversion, Historical Provider Ser - 10/23/2014 12:40 PM CST *Phone Message/Dr. Brandin Kruger Document Contains Addenda Addendum by IRVIN SALINAS LPN on 23 October 2014 13:09:35 RADIATOR MECHANIC patient called will do labs day of appt Addendum by BRANDIN KRUGER MD on 23 October 2014 13:01:42 RADIATOR MECHANIC From: BRANDIN KRUGER MD To: GRZEGORZ Kruger Nurse; Sent: 10/23/2014 13:01:42 RADIATOR MECHANIC Subject: RE: *Phone Message/Dr. Brandin Kruger cannot do that on medicare insurance. I am not sure what she wants re bladder issues. Addendum by IRVIN SALINAS LPN on 23 October 2014 12:58:55 RADIATOR MECHANIC From: IRVIN SALINAS LPN ( Brandin Kruger Nurse) To: BRADNIN KRUGER MD; Sent: 10/23/2014 12:58:55 RADIATOR MECHANIC Subject: FW: *Phone Message/Dr. Brandin Kruger From: NAOMI LOWE ([facility] Product Line Manager) To: Brandin Kruger Nurse; Sent: 10/23/2014 12:40:46 RADIATOR MECHANIC Subject: *Phone Message/Dr. Brandin Kruger Caller is: [...] A R Please call patient back at [phone] to advise. Advice/Action: Source used: ( ) [...] cell phone number ( ) Source: [facility] Dragon[facility] Document Id: [id number] Brandin Malik M.D. - 10/09/2014 1:00 PM CST Results Notification From: BRANDIN KRUGER MD Sent: 10/09/2014 13:00:35 RADIATOR MECHANIC ! Show up: 10/09/2014 13:00:35 RADIATOR MECHANIC Subject: Results Notification Actions: Notify patient of results Reminder Comments: nothing significant Results: Date Result Type Ind Result Name MBO Review Culture Urine Source: [facility] Dragonplay Document Id: [id number] Brandin Malik M.D. - 10/08/2014 10:10 AM CST Results Notification Document Contains Addenda Addendum by IRVIN SALINAS LPN on 08 October 2014 13:50:48 RADIATOR MECHANIC called with results From: BRANDIN KRUGER MD Sent: 10/08/2014 10:10:32 RADIATOR MECHANIC ! Show up: 10/08/2014 10:10:32 RADIATOR MECHANIC Subject: Results Notification Actions: Notify patient of [...] Est (*) Trace (Negative - ) Source: [facility] POWERCHART Document Id: [id number] Miscellaneous - Brandin Kruger M.D. - 10/08/2014 9:47 AM CST Ambulatory Patient Summary [address] [id number] Visit Information Name: FRANCES HAGER [facility] Number: [id number] Current Date: 10/08/2014 [...] diabetes and lists emergency contact numbers ?? [phone] Ana Gilliam, [address] [place] [phone]. All rights reserved. This information is not intended as a substitute for professional medical care. Always follow your healthcare professional's instructions. Your Goals/Additional instructions: This document has images extracted. Please consider using [employer] for all your patient education needs. Source: [facility] POWERCHART Document Id: [id number] ATOR MECHANIC Miscellaneous - Brandin Kruger M.D. - 10/08/2014 9:47 AM CST Ambulatory Discharge Medication List [address] [id number] Visit Information Name: FRANCES HAGER [facility] Number: [id number] Visit Date: 10/08/2014 [...] MD Signed On:08-OCT-2014 09:46:25 Additional Information: Source: [facility] POWERCHART Document Id: [id number] ATOR MECHANIC Miscellaneous - Irvin Salinas L.P.N. - 10/08/2014 9:28 AM CST Adult Electronic Tester Intake/History Adult Electronic Tester Intake/History Entered On: 10/08/2014 9:31 RADIATOR MECHANIC Performed On: 10/08/2014 9:28 RADIATOR MECHANIC by IRVIN SALINAS LPN Intake Chief Complaint [...] kg/m2 IRVIN SALINAS LPN - 10/08/2014 9:28 RADIATOR MECHANIC General Info Information Given By : Patient Languages : Rwandan Is Patient Female and 13-50 no hysterectomy : No IRVIN SALINAS [facility] - 10/08/2014 9:28 RADIATOR MECHANIC Subjective Pain Symptoms : No IRVIN SALINAS [facility] - 10/08/2014 9:28 RADIATOR MECHANIC Dependent Habits Tobacco Use/Currently Using : No Exposure to Tobacco Smoke : Other: former smoker Smoking Status : Never smoker IRVIN SALINAS [facility] - 10/08/2014 9:28 RADIATOR MECHANIC Caffeine Use Grid Caffeine Use : Current Type : Coffee IRVIN SALINAS [facility] - 10/08/2014 9:28 RADIATOR MECHANIC Recreational Drug Use Grid Drug Use : None IRVIN SALINAS [facility] - 10/08/2014 9:28 RADIATOR MECHANIC ID Screen Drug Resistant Organism : Yes Travel Within Last 21 Days : IRVIN Irizarry [facility] - 10/08/2014 9:28 RADIATOR MECHANIC Source: [facility] POWERCHART Document Id: [id number] RADIATOR MECHANIC!37 ATOR MECHANIC documented in this encounter Plan of Treatment Upcoming Encounters Date Type Specialty Care Team Description 09/27/2022 Office Visit Dermatology Marianela Braden M.D. [address] [place] [address] [phone] (Wo rk) documented as of this encounter Procedures Procedure Name Priority Date/Time Associated Diagnosis Comme nts BACTERIAL CULTURE, Routine 10/08/2014 10:31 AM Re sults for this AEROBIC, URINE RADIATOR MECHANIC procedure are in the results section. URINALYSIS, Routine 10/08/2014 10:04 AM Results for this MIDSTREAM, WITH RADIATOR MECHANIC procedure ar e in CULTURE IF the results INDICATED section. documented in this encounter Results Bacterial Culture, Aerobic, Urine (10/08/2014 10:31 AM RADIATOR MECHANIC) [facility] Method Time Signature Bacterial POWERCHART Culture, Aerobic, Urine HXFinal Mixed alex. No POWERCHART further studies unless notified. [facility] POWERCHART Microbiology laboratory [phone] Specimen Anatomical Collection Method Collection Time Receive d Time (Source) Location / / Volume Laterality Micro Spec 10/08/2014 10:31 10/08/2014 AM RADIATOR MECHANIC 10:31 AM RADIATOR MECHANIC Brandin Kruger M.D. LAB MICROBIOLOGY - GENERAL O RDERABLES Performing Organization Address City/State/ZIP Code Phon e Number POWERCHART (ABNORMAL) Urinalysis, Midstream, with culture if indicated (10/08/2014 10:04 AM RADIATOR MECHANIC) [facility] Method Time Signature Source Clean Void POWERCHART Urine HXUr Color Yellow Colorless POWERCHART Clarity Clear Clear POWERCHART Glucose Negative Negative POWERCHART MGDL HXBILIRUBIN Negative Negative POWERCHART Ketones, QL(U) Negative Negative POWERCHART MGDL Specific 1.020 POWERCHART Flynn, POCT, U HXBLOOD Trace (A) Negative POWERCHART [...] / Volume Laterality Urine 10/08/2014 10:04 AM RADIATOR MECHANIC Brandin Kruger M.D. LAB URINE ORDERABLES Performing Organization Address [facility] Phon e Number POWERCHART documented in this encounter Visit Diagnoses Not on filedocumented in this encounter Additional Health Concerns Assessment Noted Time PHQ-9 Depression Total Score: 3 05/05/2014 7:55 AM CDT documented as of this encounter
--- OUTSIDE RECORDS SUMMARY | 2022-08-16 13:25 | XMS_ITS | Encounter Summary ---
:1945 Author Organization [facility] Address [address] [place] [address] Care Team Providers Name Role Phone Unavailable Primary Care Provider Unavailable Encounter Details Date Type Department Care Team Description 07/29/2014 Hospital Encounter HX NO MAPPING Fabricio Kruger M.D. [address] [place] [phone] (Wo yajaira) Social History Tobacco [...] Visit Dermatology Marianela Braden M.D. [address] [place], [place] [phone] (Wo rk) documented as of this encounter Visit Diagnoses Not on filedocumented in this encounter Additional Health Concerns Assessment Noted Time PHQ-9 Depression Total Score: 3 05/05/2014 7:55 AM CDT documented as of this encounter
--- OUTSIDE RECORDS SUMMARY | 2022-08-16 13:26 | XMS_ITS | Encounter Summary ---
:1945 Author Organization [facility] Address [address] [place] [address] Care Team Providers Name Role Phone Unavailable [...] Alegre M.D. - 05/02/2013 1:38 PM CDT [id number] CHIEF COMPLAINT/REASON FOR VISIT Followup after colonoscopy. HISTORY OF PRESENT ILLNESS The patient comes in today for followup after her colonoscopy which was performed on 04/25/[address] [facility]. She had two polyps removed. One was [...] ALEGRE MD On: 05/13/2013 08:48 AM Source: [facility] MHSDOLBEYNONRADSYS Document Id: [id number] documented in this encounter Miscellaneous Notes Miscellaneous [...] Patient ( ) ( ) Call for Dry Cleaner Helper ( ) Follow up on Results ( ) Other: PROVIDER: ( ) Call Physician ( ) Call Pharmacist ( ) Call Lab ( ) Other: Special Instructions: Comments: Source: [facility] POWERCHART Document Id: [id number] Electronically signed by Antonette [facility] Shirt Hemmer [id number] at 04/05/2017 7:28 AM CDT Miscellaneous - Ulysses Alegre M.D. - 05/02/2013 3:04 PM CDT [place] [address] Visit Information Name: FRANCES HAGER [facility] Number: [id number] Current Date: 05/02/2013 15:04:24 Physicians [...] No Appointments found Your Goals/Additional instructions: Source: [facility] POWERCHART Document Id: [id number] Miscellaneous - Ulysses Alegre M.D. - 05/02/2013 3:04 PM CDT [place] [address] Visit Information Name: FRANCES HAGER [facility] Number: [id number] Visit Date: 05/02/2013 15:04:23 Attending [...] your provider for clarification. Additional Information: Source: [facility] POWERCHART Document Id: [id number] Miscellaneous - Dary Wilkins, L.P.N. - 05/02/2013 1:57 PM CDT Adult Ocean Rescue Lieutenant Intake/History Adult Ocean Rescue Lieutenant Intake/History Entered On: 05/02/2013 14:01 CDT Performed [...] Communication Mode : Verbal Languages : Estonian WILKINSDARY - 05/02/2013 13:57 CDT Subjective Pain [...] DARY WILKINS - 05/02/2013 13:57 CDT [facility] Document Id: [id number] CDT!28 documented in this encounter Plan of Treatment Upcoming Encounters Date Type Specialty Care Team Description 09/27/2022 Office Visit Dermatology Marianela Braden M.D. [address] [place], [place] [phone] (Wo rk) documented as of this encounter Visit Diagnoses Not on filedocumented in this encounter
--- OUTSIDE RECORDS SUMMARY | 2022-08-16 13:26 | XMS_ITS | Encounter Summary ---
:1945 Author Organization [facility] Address [address] [place] [address] Care Team Providers Name Role Phone Unavailable Primary Care Provider Unavailable Encounter Details Date Type Department Care Team Description 11/18/2013 Hospital Encounter HX [facility] LAB Jairo Kruger M.D. [address] [place] [address] 021 (Wo rk) Social History Tobacco Use Types Packs/Day Years Used Date Smoking Tobacco: Never Assessed Sex Assigned at Date Recorded Not on file documented as of this encounter Miscellaneous Notes Miscellaneous - Argelia Garcia, FREDIS, C.N.P. - 11/18/2013 10:13 AM TREATING INSPECTOR Schedule Follow-Up Visit 18 November 2013 FRANCES HAGER [address] [facility] [id number] Dear FRANCES HAGER, Thank you for choosing [facility] for your health care needs. You [...] 4.0 - 6.0 Sincerely, ARGELIA GARCIA [address] [place] [address] Electronic Signature Electronically Signed By: ARGELIA GARCIA CNP On: 18 November 2013 This document has images extracted. Source: [facility] POWERCHART Document Id: [id number] Electronically signed by Antonette, [facility] Catapult And Arresting Gear Officer [id number] at 04/04/2017 2:36 PM CDT documented in this encounter Plan of Treatment Upcoming Encounters Date Type Specialty Care Team Description 09/27/2022 Office Visit Dermatology Marianela Braden M.D. [address] [place], [place] [phone] (Wo rk) documented as of this encounter Procedures Procedure Name Priority Date/Time Associated Comments Diagnosis ALBUMIN, RANDOM, U Routine 11/18/2013 8:13 Result s for this AM TREATING INSPECTOR procedure are i n the results section. LIPID PANEL, S Routine 11/18/2013 8:07 Results fo r this AM TREATING INSPECTOR procedure are i n the results section. ASPARTATE Routine 11/18/2013 8:07 Results for this AMINOTRANSFERASE (AST), AM TREATING INSPECTOR proc edure are in S/P the results section. HEMOGLOBIN A1C, B Routine 11/18/2013 8:07 Results for this AM TREATING INSPECTOR procedure are i n the results section. BASIC METABOLIC PANEL, Routine 11/18/2013 8:07 Re sults for this S/P AM TREATING INSPECTOR procedure are i n the results section. documented in this encounter Results Microalbumin, Random, Urine (11/18/2013 8:13 AM TREATING INSPECTOR) P athologist Signature HXU Albumin % 29 MGDL POWERCHART Creatinine, 116 MGDL POWERCHART Random, U Albumin/Creatin 25 0 - 25 MGGM POWERCHART ine Ratio Specimen (Source) Anatomical Collection Method Collection Time Re ceived Time Location / / Volume Laterality Urine 11/18/2013 8:13 AM TREATING INSPECTOR Argelia Garcia APRN, C.N.P. LAB URINE ORDERABLES Performing Organization Address City/State/ZIP Code Phon e Number POWERCHART (ABNORMAL) Lipid Panel (11/18/2013 8:07 AM TREATING INSPECTOR) [facility] Method Time Signature Cholesterol, 183 0 - 200 POWERCHART Total MGDL HX HDL 63.0 (H) 40.0 - POWERCHART 60.0 MGDL Triglycerides 202 (H) 0 - 150 POWERCHART MGDL Calculated LDL 80 0 - 100 POWERCHART MGDL Specimen (Source) Anatomical Collection Method Collection Time Re ceived Time Location / / Volume Laterality Blood 11/18/2013 8:07 AM TREATING INSPECTOR Argelia Garcia APRN, C.N.P. LAB BLOOD ADD-ON Performing Organization Address City/State/ZIP Code Phon e Number POWERCHART AST (Aspartate Aminotransferase) (11/18/2013 8:07 AM TREATING INSPECTOR) Patholo gist Method Time Signature Aspartate 27 8 - 43 POWERCHART Aminotransferase UNITL (AST), S Specimen (Source) Anatomical Collection Method Collection Time Re ceived Time Location / / Volume Laterality Blood 11/18/2013 8:07 AM TREATING INSPECTOR Daria Cullen APRNN.PLori LAB BLOOD ADD-ON Performing Organization Address City/[facility] Code Phon e Number POWERCHART Hemoglobin A1c (11/18/2013 8:07 AM TREATING INSPECTOR) P athologist Signature Hemoglobin A1c, 6.0 4.0 - 6.0 POWERCHART B A1C Specimen (Source) Anatomical Collection Method Collection Time Re ceived Time Location / / Volume Laterality Blood 11/18/2013 8:07 AM TREATING INSPECTOR Daria Cullen APRNN.Jenni LAB BLOOD ADD-ON Performing Organization Address City/[facility] Phon e Number POWERCHART (ABNORMAL) BMP (Basic Metabolic Panel) (11/18/2013 8:07 AM TREATING INSPECTOR) P athologist Signature BUN (Blood Urea 20 [...] / Volume Laterality Blood 11/18/2013 8:07 AM TREATING INSPECTOR Reyna Cullen APRN.N.P. LAB BLOOD ADD-ON Performing Organization Address City/State/ZIP Code Phon e Number POWERCHART documented in this encounter Visit Diagnoses Not on filedocumented in this encounter
--- OUTSIDE RECORDS SUMMARY | 2022-08-16 13:26 | XMS_ITS | Encounter Summary ---
:1945 Author Organization [facility] Address [address] [place] [address] Care Team Providers Name Role Phone Unavailable [...] Visit Dermatology Marianela Braden M.D. [address] [place], [place] [phone] (Wo rk) documented as [...] Received Time / Laterality Volume 04/25/[address] [facility] - 05/13/20 13 8:49 AM CDT PATIENT IMAGES Choose the Image button to view related documents. Historical Provider LAB SURG PATH ORDERABLES Performing Organization Address City/State/ZIP Code [facility] e Number [facility] documented in this encounter Visit Diagnoses Not on filedocumented in this encounter
--- OUTSIDE RECORDS SUMMARY | 2022-08-16 13:26 | XMS_ITS | Encounter Summary ---
:1945 Author Organization [facility] Address [address] [place] [address] Care Team Providers Name Role Phone Unavailable Primary Care Provider Unavailable Encounter Details Date Type Department Care Team Description 04/30/2013 Hospital Encounter HX [facility] FBHB INTERNMED Jairo Kruger M.D. [address] [place] [address] 021 (Wo rk) Social History Tobacco Use [...] Kruger M.D. - 04/30/2013 8:24 AM CDT [id number] CHIEF COMPLAINT/REASON FOR VISIT Preventive medicine visit [...] the care plan as outlined below: - Wood Fence Installer examining fundi once a year. - Hemoglobin [...] TSH. CURRENT MEDICATIONS Post-visit Medication Reconciliation Per [facility] [place] electronic medical record. ALLERGIES Per [facility] electronic medical record. SYSTEMS REVIEW Review of systems in all areas is asked about and is negative, except as mentioned above. PAST MEDICAL/SURGICAL HISTORY 1. Heavy alcohol use in the past. 2. Moderate obesity. 3. Hypertension. 4. Dyslipidemia. 5. Diabetes mellitus type 2. 6. Probable obsessive compulsive behavior traits. PREVENTIVE SERVICES Per [facility] electronic medical record. Handwashing done prior [...] a first degree relative. VITAL SIGNS Per [facility] electronic medical record. PHYSICAL EXAM SKIN: [...] erythema or exudate, no leuko or erythroplakia. [place] teeth top and bottom. Dental hygiene is [...] physical examination once a year, see an licensed customs broker once a year, and see the dentist [...] KRUGER MD On: 05/01/2013 04:37 PM Source: [facility] MHSDOLBEYNONRADSYS Document Id: [id number] documented in this encounter Miscellaneous Notes Miscellaneous - Angelica Snyder, R.N. - 01/06/2014 12:28 PM CST Med Management Document Contains Addenda Addendum by ANGELICA SNYDER on 06 January 2014 15:33:57 WOOD ROUTER proposal done. Addendum by BRANDIN KRUGER MD on 06 January 2014 15:05:42 WOOD ROUTER From: BRANDIN KRUGER MD To: ANGELICA SNYDER; Sent: 01/06/2014 15:05:42 WOOD ROUTER Subject: FW: Med Management Addendum by IRVIN SALINAS LPN on 06 January 2014 14:52:08 WOOD ROUTER From: IRVIN SALINAS LPN To: BRANDIN KRUGER MD; Sent: 01/06/2014 14:52:08 WOOD ROUTER Subject: RE: Med Management taking HCTZ 25mg bid and Atenolol 50mg bid Addendum by BRANDIN KRUGER MD on 06 January 2014 14:44:16 WOOD ROUTER From: BRANDIN KRUGER MD To: IRVIN SALINAS LPN; Sent: 01/06/2014 14:44:16 WOOD ROUTER Subject: FW: Med Management Call her and finfd out what atenolol she is taking Addendum by ANGELICA SNYDER on 06 January 2014 14:19:47 WOOD ROUTER From: ANGELICA SNYDER To: BRANDIN KRUGER MD; Sent: 01/06/2014 14:19:47 WOOD ROUTER Subject: FW: Med Management What about the atenolol and HCTZ? --as per the note below. Addendum by BRANDIN KRUGER MD on 06 January 2014 12:54:38 WOOD ROUTER From: BRANDIN KRUGER MD Sent: 01/06/2014 12:54:36 WOOD ROUTER Subject: RE:Med Management Approved Order:atorvastatin (Lipitor 40 mg oral tablet) 1 tab(s) PO Bedtime Qty: 90 tab(s) Refills: 1 Substitutions Allowed Route To [id number] Signed by BRANDIN KRUGER MD 01/06/2014 12:54:31 Approved Order:metFORMIN (metFORMIN 850 mg oral tablet) 1 tab(s) PO 2xDay meal Qty: 180 tab(s) Refills: 1 Substitutions Allowed Route To [facility][id number] Signed by BRANDIN KRUGER MD 01/06/2014 12:54:29 Approved Order:lisinopril (Zestril 40 mg oral tablet) 1 tab(s) PO Daily Qty: 90 tab(s) Refills: 1 Substitutions Allowed Route To [id number] Signed by BRANDIN KRUGER MD 01/06/2014 12:54:28 From: ANGELICA SNYDER To: BRANDIN KRUGER MD; Sent: 01/06/2014 12:28:49 WOOD ROUTER Subject: Med Management On hold pending signature Order:atorvastatin (Lipitor 40 mg oral tablet) 1 tab(s) PO Bedtime Qty: 90 tab(s) Refills: 1 Substitutions Allowed Route To [id number] On hold pending signature Order:metFORMIN (metFORMIN 850 mg oral tablet) 1 tab(s) PO 2xDay meal Qty: 180 tab(s) Refills: 1 Substitutions Allowed Route To [id number] On hold pending signature Order:lisinopril (Zestril 40 mg oral tablet) 1 tab(s) PO Daily Qty: 90 tab(s) Refills: 1 Substitutions Allowed Route To [id number] Documented Discontinue:lisinopril (Zestril [...] Medications Needing Refill: Last Refill Date: Additional Information:[facility] is asking for atenolol 50 mg [...] to Pharmacy ( ) Patient will orange picker machine operator Script ( ) Mail Rx to Patient Source: [facility] iSquare Document Id: [id number] Electronically signed by Conversion, [facility] Spray Machine Operator [id number] at 04/05/2017 7:28 AM CDT Miscellaneous - Brandin Kruger M.D. - 04/30/2013 12:26 PM CDT Results Notification Document Contains Addenda Addendum by IRIVN SALINAS LPN on 02 May 2013 09:38:08 CDT called with results From: BRANDIN KRUGER MD To: IRVIN SALINAS LPN; Sent: 04/30/2013 12:26:10 CDT ! Show up: 04/30/2013 17:26:10 [facility] Subject: Results Notification Actions: Notify patient of results Reminder Comments: good Results: Date Result Name Ind Value Ref Range 04/30/2013 09:01 Hgb A1c (H) 6.1 % A1C (4.0 - 6.0) Source: [facility] iSquare Document Id: [id number] Electronically signed by Conversion, [facility] Spray Machine Operator [id number] at 04/05/2017 7:28 AM CDT Brandin Malik [...] (H) 52 mg/gm (0 - 25) Source: [facility] POWERCHART Document Id: [id number] Electronically signed by Conversion, [facility] Spray Machine Operator [id number] at 04/05/2017 7:28 AM CDT Brandin Malik [...] Calculated 53 mg/dL (0 - 100) Source: [facility] POWERCHART Document Id: [id number] Electronically signed by Conversion, [facility] Spray Machine Operator [id number] at 04/05/2017 7:28 AM CDT Miscellaneous - Brandin Kruger M.D. - 04/30/2013 9:36 AM CDT Results Notification Document Contains Addenda Addendum by IRVIN SALINAS LPN on 02 May 2013 09:39:10 CDT called with results From: BRANDIN KRUGER MD To: IRVIN SALINAS LPN; Sent: 04/30/2013 09:36:56 CDT ! Show up: 04/30/2013 14:36:56 [facility] Subject: Results Notification Actions: Notify [...] ) 04/30/2013 09:11 UA Appear Clear Source: [facility] POWERCHART Document Id: [id number] Electronically signed by Conversion, [facility] Spray Machine Operator [id number] at 04/05/2017 7:28 AM CDT Miscellaneous - Brandin Kruger M.D. - 04/30/2013 9:16 AM CDT Results Notification Document Contains Addenda Addendum by IRVIN SALINAS LPN on 02 May 2013 09:37:52 CDT called with results From: BRANDIN KRUGER MD To: IRVIN SALINAS JEFFREY; Sent: 04/30/2013 09:16:26 CDT ! Show up: 04/30/2013 14:16:26 [facility] Subject: Results Notification Actions: Notify patient of results Reminder Comments: ok Results: Date Result Name Value Ref Range 04/30/2013 09:01 Hgb 14.1 g/dL (12.0 - 15.5) Source: [facility] POWERCHART Document Id: [id number] Electronically signed by Conversion, [facility] Spray Machine Operator [id number] at 04/05/2017 7:28 AM CDT Miscellaneous - Brandin Kruger M.D. - 04/30/2013 8:51 AM CDT Ambulatory Depart Summary [address] [address] Visit Information Name: FRANCES HAGER [facility] Number: [id number] Visit Date: 04/30/2013 08:51:11 Attending [...] 325 mg Oral once a day [facility] [place] (omega 3 fatty acids-fish) [...] your provider for clarification. Additional Information: Source: [facility] POWERCHART Document Id: [id number] Miscellaneous - Brandin Kruger M.D. - 04/30/2013 8:51 AM CDT Ambulatory Patient Summary [address] [address] Visit Information Name: FRANCES HAGER [facility] Number: [id number] Current Date: 04/30/2013 08:51:12 Physicians [...] 325 mg Oral once a day [facility] [place] (omega 3 fatty acids-fish) [...] RobUlysses morgan MD Your Goals/Additional instructions: Source: [facility] POWERCHART Document Id: [id number] Miscellaneous - Irvin Salinas L.P.N. - 04/30/2013 8:30 AM CDT Adult Pony Trimmer Intake/History Adult Pony Trimmer Intake/History Entered On: 04/30/2013 8:32 CDT Performed [...] Given By : Patient Languages : Persian IRVIN SALINAS LPN - 04/30/2013 8:30 CDT Subjective Pain Symptoms : No IRVIN SALINAS LPN - 04/30/2013 8:30 CDT Dependent Habits Tobacco Use/Currently Using : No Smoking Status : Former smoker Alcohol Use : Yes IRVIN SALINAS LPN - 04/30/2013 8:30 CDT Caffeine Use Grid Caffeine Use : Current Type : Coffee IRVIN SALINAS PIN DRAFTER OPERATOR - 04/30/2013 8:30 CDT Recreational Drug Use Grid Drug Use : None IRVIN SALINAS PIN DRAFTER OPERATOR - 04/30/2013 8:30 CDT Source: [facility] POWERCHART Document Id: [id number] CDT!32 documented in this encounter Plan of Treatment Upcoming Encounters Date Type Specialty Care Team Description 09/27/2022 Office Visit Dermatology Marianela Braden M.D. [address] [place] [address] [phone] (Wo rk) documented as of this [...] M.D. LAB URINE ORDERABLES Performing Organization Address City/[facility]/ZIP Code Phon e Number POWERCHART (ABNORMAL) Urinalysis, Complete, Includes Microscopic (04/30/2013 9:11 AM CDT) Patholo gist Method Time Signature Protein, Ur, Dip 30 (A) Negative POWERCHART Source Clean Void POWERCHART Urine HXUr Color Yellow POWERCHART Appearance Clear POWERCHART Glucose Negative Negative POWERCHART HXBILIRUBIN Negative Negative POWERCHART Ketones, QL(U) Negative Negative POWERCHART Specific 1.020 1.020 POWERCHART [place], POCT, U pH, POCT, Urine 7.0 5.0 [...] M.D. LAB URINE ORDERABLES Performing Organization Address [facility]/ZIP Code Phon e Number POWERCHART Hemoglobin (04/30/2013 9:01 AM CDT) P athologist Signature Hemoglobin 14.1 12.0 - 15.5 POWERCHART GDL Specimen (Source) Anatomical Collection Method Collection Time Re ceived Time Location / / Volume Laterality Blood 04/30/2013 9:01 AM CDT Brandin Kruger M.D. LAB BLOOD ADD-ON Performing Organization Address City/[facility]/ZIP Code Phon e Number POWERCHART (ABNORMAL) [...] M.D. LAB BLOOD ADD-ON Performing Organization Address City/[facility]/ZIP Code Phon e Number POWERCHART Lipid [...]
--- OUTSIDE RECORDS SUMMARY | 2022-08-16 13:26 | XMS_ITS | Encounter Summary ---
:1945 Author Organization [facility] Address [address] [place] [address] Care Team Providers Name Role Phone Unavailable Primary Care Provider Unavailable Encounter Details Date Type Department Care Team Description 11/25/2013 Hospital Encounter HX [facility] FBHB FAMILYPRA Iona Garcia, FREDIS, C.N.P. [address] [place] [address] (Wo rk) Social History Tobacco Use Types Packs/Day Years Used Date Smoking Tobacco: Never Assessed Sex Assigned at Date Recorded Not on file documented as of this encounter Last Filed Vital Signs Vital Sign Reading Time Taken Comments Blood Pressure 110/58 11/25/2013 8:18 AM CAR PORTER Pulse 72 11/25/2013 8:18 AM CAR PORTER Temperature - - Respiratory Rate - - Oxygen Saturation - - Inhaled Oxygen Concentration - - Weight 94 kg (207 lb 3.7 oz) 11/25/2013 8:18 AM CAR PORTER Height - - Body Mass Index 37.09 08/21/2013 1:10 PM CDT documented in this encounter Progress Notes Argelia Garcia, FREDIS, C.N.P. - 11/25/2013 8:03 AM CST [id number] CHIEF COMPLAINT/REASON FOR VISIT 1. Diabetes type [...] GARCIA CNP On: 11/26/2013 07:56 AM Source: [facility] MHSDOLBEYNONRADSYS Document Id: [id number] PORTER documented in this encounter Miscellaneous Notes Miscellaneous - Argelia Garcia APRN, C.N.P. - 11/25/2013 9:35 AM CST General Message From: ARGELIA GARCIA CNP To: FRANCES HAGER Sent: 11/25/2013 09:35:10 CAR PORTER Subject: General Message Frances, I thought I would try the Patient Portal and see if it is working for you. Your last Tetanus booster(including whooping cough) was given on September 07, 2010. It is good for 10 years. Argelia Source: [facility] POWERCHART Document Id: [id number] Electronically signed by Antonette [facility] Poultry Feed Supervisor [id number] at 04/04/2017 8:05 AM CDT Miscellaneous - Argelia Garcia, FREDIS, C.N.P. - 11/25/2013 8:39 AM CST Ambulatory Patient Summary [address] [address] Visit Information Name: FRANCES HAGER [facility] Number: [id number] Current Date: 11/25/2013 08:39:45 Physicians Attending Provider: ARGELIA GARCIA CASINO SLOT SUPERVISOR Primary Care Provider: BRANDIN KRUGER MD FRANCES [...] Oral, two times a day with meals [facility] Prescription (omega 3 fatty acids-fish) 664/1200mg 1 [...] appointment detail needed. Your Goals/Additional instructions: Source: [facility] POWERCHART Document Id: [id number] PORTER Miscellaneous - Argelia Garcia APRN, C.N.P. - 11/25/2013 8:39 AM CST Ambulatory Depart Summary [address] [address] Visit Information Name: FRANCES HAGER [facility] Number: [id number] Visit Date: 11/25/2013 08:39:43 Attending Provider: ARGELIA GARCIA [facility] Primary Care Provider: BRANDIN KRUGER MD [...] Oral, two times a day with meals [facility] Prescription (omega 3 fatty acids-fish) 664/1200mg 1 [...] in case of emergency. Additional Information: Source: [facility] POWERCHART Document Id: [id number] PORTER Miscellaneous - Argelia Garcia APRN, C.N.P. - 11/25/2013 8:34 AM CST Quality Measures Quality Measures Entered On: 11/25/2013 8:34 CAR PORTER Performed On: 11/25/2013 8:34 CAR PORTER by ARGELIA GARCIA CNP Diabetes Date of Last Foot Exam : 11/25/2013 CAR PORTER ARGELIA GARCIA CNP - 11/25/2013 8:34 CAR PORTER Foot Exam Grid Left foot exam Right foot exam Dorsalis Pedis Pulse : Normal Normal Capillary Refill : Less than 3 seconds Less than 3 seconds 10 gm Monofilament Sensation Check : Intact Intact ARGELIA GARCIA [facility] - 11/25/2013 8:34 CAR PORTER ARGELIA GARCIA [facility] - 11/25/2013 8:34 CAR PORTER Source: [place] Document Id: [id number] CAR PORTER!12 PORTER Miscellaneous - Jorge Han L.P.N. - 11/25/2013 8:18 AM CST Adult Insert Operator Intake/History Adult Insert Operator Intake/History Entered On: 11/25/2013 8:19 CAR PORTER Performed On: 11/25/2013 8:18 CAR PORTER by JORGE HAN Intake Chief Complaint : diabetes recheck LMP Date : Hysterectomy Peripheral Pulse Rate : 72 /min Systolic Blood Pressure : 110 mmHg Diastolic Blood Pressure : 58 mmHg NIBP Mean : 75 mmHg Actual Weight : 94.0 kg(Converted to: 207 lb 4 oz) Dosing Weight Clinic : 94 kg JORGE HAN - 11/25/2013 8:18 CAR PORTER General Info Information Given By : Patient Preferred Communication Mode : Verbal Languages : Botswanan JORGE HAN - 11/25/2013 8:18 CAR PORTER Subjective Pain Symptoms : No JORGE HAN - 11/25/2013 8:18 CAR PORTER Dependent Habits Tobacco Use/Currently Using : No Exposure to Tobacco Smoke : Other: former smoker Smoking Status : Former smoker JORGE HAN - 11/25/2013 8:18 CAR PORTER Caffeine Use Grid Caffeine Use : Current Type : Coffee JORGE HAN - 11/25/2013 8:18 CAR PORTER Recreational Drug Use Grid Drug Use : None JORGE HAN - 11/25/2013 8:18 CAR PORTER [facility] Document Id: [id number] CAR PORTER!27 PORTER documented in this encounter Plan of Treatment Upcoming Encounters Date Type Specialty Care Team Description 09/27/2022 Office Visit Dermatology Marianela Braden M.D. [address] [place] [phone] (Wo rk) documented as of this encounter Visit Diagnoses Not on filedocumented in this encounter
--- OUTSIDE RECORDS SUMMARY | 2022-08-16 13:26 | XMS_ITS | Encounter Summary ---
:1945 Author Organization [facility] Address [address] [place] [address] Care Team Providers Name Role Phone Unavailable Primary Care Provider Unavailable Encounter Details Date Type Department Care Team Description 02/27/2014 Hospital Encounter HX [facility] FBHB INTERNMED Jairo Kruger M.D. [address] [place] [address] 021 (Wo rk) Social History Tobacco Use [...] Body Mass Index 36.02 11/25/2013 9:03 AM LADIES LOCKER ROOM ATTENDANT documented in this encounter Progress Notes Brandin Kruger M.D. - 02/27/2014 12:55 PM CDT [id number] Ms. Meek presents today with a lot [...] We will make an appointment down at [place] with Psychiatry. I think that the main [...] KRUGER MD On: 02/27/2014 03:15 PM Source: [facility] MHSDOLBEYNONRADSYS Document Id: [id number] documented in this encounter Miscellaneous Notes Miscellaneous [...] Pharmacy ( ) Other: Provider: Pharmacy: alejandra [facility] Name of Medications Needing Refill:metformin 850 mg or 500mg pharmacy received both -- the 850 is completed Last Refill Date: Additional Information: Last / Future Appointment: Disposition: ( ) Send to Pharmacy ( ) Call to Pharmacy ( ) Patient will tile picker Script ( ) Mail Rx to Patient Source: [facility] POWERCHART Document Id: [id number] Electronically signed by Antonette [facility] Power Press Supervisor [id number] at 04/03/2017 9:39 PM CDT Miscellaneous - Dary Wilkins, L.P.N. - 02/27/2014 1:02 PM CDT Adult Fire And Explosion Investigator Intake/History Document Has Been Updated Adult Fire And Explosion Investigator Intake/History Entered On: 02/27/2014 13:08 CDT Performed [...] Preferred Communication Mode : Verbal Languages : Solomon Islander WILKINSDARY - 02/27/2014 13:02 CDT Subjective Pain [...] None DARY WILKINS 02/27/2014 13:02 CDT Source: [facility] Document Id: [id number] CDT!3 documented in this encounter Plan of Treatment Upcoming Encounters Date Type Specialty Care Team Description 09/27/2022 Office Visit Dermatology Marianela Braden M.D. [address] [place], [place] [phone] (Wo rk) documented as of this encounter Visit Diagnoses Not on filedocumented in this encounter
--- OUTSIDE RECORDS SUMMARY | 2022-08-16 13:26 | XMS_ITS | Encounter Summary ---
:1945 Author Organization [facility] Address [address] [place] [address] Care Team Providers Name Role Phone Unavailable Primary Care Provider Unavailable Encounter Details Date Type Department Care Team Description 11/25/2013 Hospital Encounter HX [facility] FBHB INTERNMED Jairo Kruger M.D. [address] [place] [address] 021 (Wo rk) Social History Tobacco Use Types Packs/Day Years Used Date Smoking Tobacco: Never Assessed Sex Assigned at Date Recorded Not on file documented as of this encounter Last Filed Vital Signs Vital Sign Reading Time Taken Comments Blood Pressure 118/62 11/25/2013 9:03 AM CONSULTING ENGINEER Pulse 78 11/25/2013 9:03 AM CONSULTING ENGINEER Temperature - - Respiratory Rate 20 11/25/2013 9:03 AM CONSULTING ENGINEER Oxygen Saturation - - Inhaled Oxygen Concentration - - Weight 94 kg (207 lb 3.7 oz) 11/25/2013 9:03 AM CONSULTING ENGINEER Height 160 cm (5' 2.99) 11/25/2013 9:03 AM CONSULTING ENGINEER Body Mass Index 36.72 11/25/2013 9:03 AM CONSULTING ENGINEER documented in this encounter Progress Notes Brandin Kruger M.D. - 11/25/2013 8:52 AM CST [id number] She comes in to go through testing. [...] the care plan as outlined below: - Produce Clerk examining fundi once a year. - Hemoglobin [...] out that she had a mammogram at [facility] in July of 2013, which was normal, and so I will enter that to fill that health maintenance deficiency. She is current on her colonoscopy and did have a polyp. She is due in 5 years. MEDICATIONS Per [facility] EMR. ALLERGIES Per [facility] EMR. SYSTEMS REVIEW Review of systems in all areas except as mentioned above is negative. PREVENTIVE SERVICES: Per [facility] EMR. Handwashing done prior to patient contact. PAST MEDICAL/SURGICAL HISTORY Per [facility] EMR. VITAL SIGNS Per [facility] EMR. PHYSICAL EXAMINATION HEENT: Eyes-Conjunctiva and [...] KRUGER MD On: 11/26/2013 09:02 AM Source: [facility] MHSDOLBEYNONRADSYS Document Id: [id number] ULTING ENGINEER documented in this encounter Miscellaneous Notes Miscellaneous - Brandin Kruger M.D. - 11/25/2013 9:43 AM CST Ambulatory Patient Summary [address] [address] Visit Information Name: FRANCES HAGER [facility] Number: [id number] Current Date: 11/25/2013 09:43:26 Physicians [...] a day Stop Taking the Following Medications: [facility] Prescription (omega 3 fatty acids-fish) Medication list [...] appointment detail needed. Your Goals/Additional instructions: Source: [facility] POWERCHART Document Id: [id number] ULTING ENGINEER Miscellaneous - Brandin Kruger M.D. - 11/25/2013 9:43 AM CST Ambulatory Depart Summary [address] [address] Visit Information Name: FRANCES HAGER [facility] Number: [id number] Visit Date: 11/25/2013 09:43:23 Attending [...] a day Stop Taking the Following Medications: [facility] Prescription (omega 3 fatty acids-fish) Medication list [...] in case of emergency. Additional Information: Source: [facility] POWERCHART Document Id: [id number] ULTING ENGINEER Miscellaneous - Irvin Salinas, LLoriP.N. - 11/25/2013 9:03 AM CST Adult Ordering Machine Operator Intake/History Adult Ordering Machine Operator Intake/History Entered On: 11/25/2013 9:07 CONSULTING ENGINEER Performed On: 11/25/2013 9:03 CONSULTING ENGINEER by IRVIN SALINAS LPN Intake Chief [...] kg/m2 IRVIN SALINAS LPN - 11/25/2013 9:03 CONSULTING ENGINEER General Info Information Given By : Patient Languages : Salvadorean IRVIN SALINAS LPN - 11/25/2013 9:03 CONSULTING ENGINEER Subjective Pain Symptoms : No IRVNI SALINAS LPN - 11/25/2013 9:03 CONSULTING ENGINEER Dependent Habits Tobacco Use/Currently Using : No Exposure to Tobacco Smoke : Other: former smoker Smoking Status : Former smoker Alcohol Use : Yes IRVIN SALINAS LPN - 11/25/2013 9:03 CONSULTING ENGINEER Caffeine Use Grid Caffeine Use : Current Type : Coffee IRVIN SALINAS LPN - 11/25/2013 9:03 CONSULTING ENGINEER Recreational Drug Use Grid Drug Use : None IRVIN SALINAS LPN - 11/25/2013 9:03 CONSULTING ENGINEER Source: [facility] POWERCHART Document Id: [id number] CONSULTING ENGINEER!35 ULTING ENGINEER documented in this encounter Plan of Treatment Upcoming Encounters Date Type Specialty Care Team Description 09/27/2022 Office Visit Dermatology Marianela Braden M.D. [address] [place] [address] [phone] (Wo rk) documented as of this encounter Visit Diagnoses Not on filedocumented in this encounter
--- OUTSIDE RECORDS SUMMARY | 2022-08-16 13:26 | XMS_ITS | Encounter Summary ---
:1945 Author Organization [facility] Address [address] [place] [address] Care Team Providers Name Role Phone Unavailable Primary Care Provider Unavailable Encounter Details Date Type Department Care Team Description 05/06/2013 Hospital Encounter HX [facility] FAMILYPRA Iona Garcia, FREDIS, C.N.P. [address] [place] [address] (Wo rk) Social History Tobacco [...] FREDIS, C.N.P. - 05/06/2013 9:20 AM CDT [id number] CHIEF COMPLAINT/REASON FOR VISIT Diabetes education. HISTORY OF PRESENT ILLNESS Frances is scheduled for diabetes education. She states it has been several years since she has seen a religious educator. She had A1c checked on 04/30/2013. [...] she had dilated eye exam done in [place] at the [facility] by Dr. Aguila six months ago. Will request a copy of that record. She is checking on immunizations. She states Dr. Kruger did do a foot exam when she saw him. VITAL SIGNS See EMR. PHYSICAL EXAMINATION GENERAL: Well developed, well nourished female in no acute distress. IMPRESSION/REPORT/PLAN Diabetes type 2 controlled. Diabetes education was done today. Please see religious educator intake form in the EMR. all [...] GARCIA CNP On: 05/08/2013 09:04 AM Source: [facility] MHSDOLBEYNONRADSYS Document Id: [id number] documented in this encounter Nursing Notes Argelia Garcia APRN, C.N.P. - 05/06/2013 2:01 PM CDT Manager Qa Intake (Adult) Manager Qa Intake (Adult) Entered On: 05/06/2013 14:03 CDT Performed On: 05/06/2013 14:01 CDT by ARGELIA GARCIA HEALTH TEACHER Assessment Program Type : Non-Program Diabetes [...] GARCIA CNP - 05/06/2013 14:01 CDT Source: [facility] [employer]mentsCHART Document Id: [id number] CDT!39 documented in this encounter Miscellaneous Notes Miscellaneous - Argelia Garcia APRN, C.N.P. - 05/06/2013 2:05 PM CDT Ambulatory Patient Summary [address] [address] Visit Information Name: FRANCES HAGER [facility] Number: [id number] Current Date: 05/06/2013 14:05:30 Physicians [...] tablet) 325 mg Oral once a day [facility] Prescription (omega 3 fatty acids-fish) 664/1200mg 1 [...] No Appointments found Your Goals/Additional instructions: Source: [facility] POWERCHART Document Id: [id number] Miscellaneous - Argelia Garcia APRN, C.N.P. - 05/06/2013 2:05 PM CDT Ambulatory Depart Summary [address] [address] Visit Information Name: FRANCES HAGER [facility] Number: [id number] Visit Date: 05/06/2013 14:05:29 Attending Provider: ARGELIA GARCIA [facility] Primary Care Provider: BRANDIN KRUGER MD FRANCES [...] tablet) 325 mg Oral once a day [facility] Prescription (omega 3 fatty acids-fish) 664/1200mg 1 [...] your provider for clarification. Additional Information: Source: [facility] POWERCHART Document Id: [id number] Mispriyankaaneous - Catina Vuong L.PLoriN. - 05/06/2013 9:24 AM CDT Adult Sr. Manager Corporate Communications Intake/History Adult Sr. Manager Corporate Communications Intake/History Entered On: 05/06/2013 9:26 CDT Performed [...] Information Given By : Patient Languages : Togolese CATINA VUONG - 05/06/2013 9:24 CDT Subjective [...] CATINA VUONG - 05/06/2013 9:24 CDT Source: [employer] Document Id: [id number] CDT!27 Miscellaneous - Argelia Garcia APRN, C.NClarence - 01/15/2013 2:21 PM CDT Quality Measures Quality Measures Entered On: 05/06/2013 14:22 CDT Performed On: 01/15/2013 14:21 CDT by ARGELIA GARCIA CNP Diabetes Date of Last Eye Exam : 01/15/2013 CDT ARGELIA GARCIA CNP - 05/06/2013 14:21 CDT Source: [employer] Document Id: [id number] CDT!3 documented in this encounter Plan of Treatment Upcoming Encounters Date Type Specialty Care Team Description 09/27/2022 Office Visit Dermatology Marianela Braden M.D. [address] [place], [place] [phone] (Wo rk) documented as of this encounter Visit Diagnoses Not on filedocumented in this encounter
--- OUTSIDE RECORDS SUMMARY | 2022-08-16 13:27 | XMS_ITS | Encounter Summary ---
:1945 Author Organization [facility] Address [address] [place] [address] Care Team Providers Name Role Phone Unavailable Primary Care Provider Unavailable Encounter Details Date Type Department Care Team Description 04/11/2013 Hospital Encounter HX [facility] INTERNMED Jairo Kruger M.D. [address] [place] [address] (Wo rk) Social History Tobacco Use [...] Kruger M.D. - 04/11/2013 10:23 AM CDT [id number] CHIEF COMPLAINT / REASON FOR VISIT New [...] [facility] [place]. IMPRESSION/REPORT/PLAN Her diabetes, hypertension and dyslipidemia are [...] [facility] also [facility] B12, folate and TSH today. I have asked them to call neurology in [place], [place] or [place] as it is impossible to get in in [place] and see if she can be gotten in. So in all today, she had a BMP, a B12 and folate, a hepatic panel and studies scheduled, a colonoscopy, a CT head of contrast, and they are scheduled to make an appointment with [facility] here in [place] and also try with Dr. Salomon for neurology in [facility]. I will set her up in two weeks for a complete physical here. Time component 45 minutes. Brandin Kruger M.D./charlotte Electronically Signed By: BRANDIN KRUGER MD On: 04/16/2013 07:00 AM Source: [facility] MHSDOLBEYNONRADSYS Document Id: [id number] documented in this encounter Nursing Notes Prosper Brunner - 04/23/2013 10:47 AM CDT Prior Authorization [facility] [place] [address] Referral Authorization: Procedure or visit authorized for: Colonoscopy (CPT code G0121 per Aide Samson) Referred by: Dr. Moe Kruger Contact Location: [facility] Contact Referred to: Dr. Alegre Contact Location: [facility] Contact Authorization Needed: yes or ____x__ no If yes, Referral valid: From: To: Number of visits approved for: Authorized by: Heidy Contact Number: Date Authorized: 04/23/2013 Reference Number: or ___x__ not applicable per Bulk Fluids Handler. Individual that received the Referral Authorization: LML Electronically Signed By: PROSPER BRUNNER On: 04/23/2013 10:48 AM Source: [facility] POWERCHART Document Id: [id number] Prosper Brunner - 04/17/2013 1:45 PM CDT Colonoscopy DATE: 04/17/2013 SCHEDULED FOR: Colonoscopy AT [facility] WITH DR. ALEGRE DATE of Procedure: 04/25/2013 TIME of Procedure: 9:45 PER: DARVIN /DR. SCHAEFFER ORDERS. Prep instructions have been sent to the patient. Patient advised to not take aspirin or ibuprofen for 10 days prior to the scheduled procedure. Insurance referral done _x_Yes __No Copies of referring healthcare provider notes sent to [facility]. Electronically Signed By: PROSPER BRUNNER On: 04/17/2013 01:45 PM [facility] Document Id: [id number] Prosper Brunner - 04/12/2013 10:19 AM CDT Colonoscopy [place] [address] Patient Communication for follow up treatment for: __Colonoscopy __ Attempt made to contact patient made on: ___04/12/13 . a. Patient is schedule to be seen on: . b. Patient is refusing recommended treatment at this time. c. ___x__ Message left for the patient at : ____[phone]____or return call to: Prosper Brunner LPN at [phone]. d. Individual that has contacted the patient: [...] PROSPER BRUNNER On: 04/12/2013 10:21 AM Source: [employer] Document Id: [id number] documented in this encounter Miscellaneous Notes Miscellaneous - Prosper Brunner - 04/17/2013 1:47 PM CDT General Message From: PROSPER BRUNNER ( Surgery Nurse) To: BRANDIN KRUGER MD; Sent: 04/17/2013 13:47:31 CDT Subject: General Message Pt scheduled for colonoscopy on April 25. Source: [employer] Document Id: [id number] Miscellaneous - Brandin Kruger M.D. - 04/12/2013 9:05 AM CDT Results Notification Document Contains Addenda Addendum by IRVIN SALINAS LPN on 12 April 2013 16:32:53 CDT called with results From: BRANDIN KRUGER MD To: IRVIN SALINAS LPN; Sent: 04/12/2013 09:05:50 CDT ! Show up: 04/12/2013 14:05:[address] [facility] Subject: Results Notification Actions: Notify patient of results Reminder Comments: okl Results: Date Result Name Ind Value Ref Range 04/11/2013 11:39 Vitamin B12 Lvl-Scott (H) 1,350 ng/L (180 - 914 - ) 04/11/2013 11:39 Folate Lvl-Scott >20.0 mcg/L (>=4.0 - ) 04/11/2013 11:39 TSH, Sensitive-Scott 1.0 mIU/L (0.3-5.0 - ) Source: [employer] Document Id: [id number] Electronically signed by Conversion, [facility] Basic Sciences Professor [id number] at 04/04/2017 11:25 PM CDT Miscellaneous - Brandin Kruger M.D. - 04/11/2013 12:46 PM CDT Results Notification Document Contains Addenda Addendum by IRVIN SALINAS LPN on 12 April 2013 16:32:40 CDT called with results From: BRANDIN KRUGER MD To: IRVIN SALINAS LPN; Sent: 04/11/2013 12:46:09 CDT ! Show up: 04/11/2013 17:46:[address] [facility] Subject: Results Notification Actions: Notify [...] Direct 0.2 mg/dL (0.0 - 0.3) Source: [facility] POWERCHART Document Id: [id number] Electronically signed by Conversion, [facility] Basic Sciences Professor [id number] at 04/04/2017 11:25 PM CDT Miscellaneous - Brandin Kruger M.D. - 04/11/2013 11:21 AM CDT Ambulatory Patient Summary [address] [address] Visit Information Name: FRANCES HAGER [facility] Number: [id number] Current Date: 04/11/2013 11:21:53 Physicians [...] tablet) 325 mg Oral once a day [facility] Prescription (omega 3 fatty acids-fish) 664/1200mg [...] found Your Goals/Additional instructions: Source: [facility] POWERCHART Document Id: [id number] Miscellaneous - Brandin Kruger M.D. - 04/11/2013 11:21 AM CDT Ambulatory Depart Summary [address] [address] Visit Information Name: FRANCES HAGER [facility] Number: [id number] Visit Date: 04/11/2013 11:21:52 Attending [...] tablet) 325 mg Oral once a day [facility] Prescription (omega 3 fatty acids-fish) 664/1200mg [...] for clarification. Additional Information: Source: [facility] POWERCHART Document Id: [id number] Jimmie - Brandin Kruger M.D. - 04/11/2013 11:20 AM CDT General Message Document Contains Addenda Addendum by PROSPER BRUNNER on 12 April 2013 10:21:31 CDT Message left for pt to return call to schedule colonoscopy. From: BRANDIN KRUGER MD To: Surgery Nurse; Sent: 04/11/2013 11:20:43 CDT Subject: General Message Needs screening colon never had one. Source: [facility] POWERCHART Document Id: [id number] Electronically signed by Antonette [facility] Basic Sciences Professor [id number] at 04/04/2017 11:25 PM CDT Jimmie - [...] SALINAS LPN - 04/11/2013 10:37 CDT Source: [facility] POWERCHART Document Id: [id number] CDT!26 Miscellaneous - Irvin Salinas L.PLoriNLori - 04/11/2013 10:34 AM CDT Adult Embroiderer Intake/History Adult Embroiderer Intake/History Entered On: 04/11/2013 10:37 CDT Performed [...] Information Given By : Patient Languages : Swiss SALINAS IRVINPIERO HIGH LPN - 04/11/2013 10:34 CDT Subjective Pain Symptoms : No IRVIN SALINAS LPN - 04/11/2013 10:34 CDT Dependent Habits Tobacco Use/Currently Using : No Smoking Status : Former smoker Alcohol Use : Yes IRVIN SALINAS MUSIC PROMOTER - 04/11/2013 10:34 CDT Caffeine Use Grid Caffeine Use : Current Type : Coffee IRVIN SALINAS MUSIC PROMOTER - 04/11/2013 10:34 CDT Recreational Drug Use Grid Drug Use : None IRVIN SALINAS MUSIC PROMOTER - 04/11/2013 10:34 CDT Source: [facility] POWERCHART Document Id: [id number] CDT!33 documented in this encounter Plan of Treatment Upcoming Encounters Date Type Specialty Care Team Description 09/27/2022 Office Visit Dermatology Marianela Braden M.D. [address] [place] [phone] (Wo rk) documented as of [...] >=4.0 [facility] POWERCHART Comment: Test Performed by: [facility] [address] [place] [id number] Manager Project: Gustavo vargas III, M.D. Specimen (Source) Anatomical Collection Method Collection Time Re ceived Time Location / / Volume Laterality Blood 04/11/2013 11:39 AM CDT Brandin Kruger M.D. LAB BLOOD NON ADD-ON Performing Organization Address City/[facility]/ZIP Code Phon e Number POWERCHART Thyroid-Stimulating Hormone-Sensitive (s-TSH) (04/11/2013 11:39 AM CDT) athologist Signature TSH, Sensitive 1.0 0.3 - 5.0 POWERCHART MIUL Comment: Test Performed by: [place] [address] Manager Project: Gustavo vargas III, M.D. Specimen (Source) Anatomical Collection Method Collection Time Re ceived Time Location / / Volume Laterality Blood 04/11/2013 11:39 AM CDT Brandin Kruger M.D. LAB BLOOD ADD-ON Performing Organization Address [facility] Phon e Number POWERCHART (ABNORMAL) Hepatic Function Panel (04/11/2013 11:39 AM CDT) [facility] Method Time Signature Albumin, S 4.3 [...] M.D. LAB BLOOD ADD-ON Performing Organization Address City/[facility]/ZIP Code Phon e Number POWERCHART (ABNORMAL) BMP [...]
== END 2022-08-14 22:09 | disposition home or self-care (01) ==
PROVIDERS: PCP Family Medicine; Visit Provider Family Medicine
DX: R42 Dizziness and giddiness (principal); R53.1 Weakness; S09.90XA Unspecified injury of head, initial encounter; W18.30XA Fall on same level, unspecified, initial encounter; Y92.009 Unspecified place in unspecified non-institutional (private) residence as the place of occurrence of the external cause
CPT/HCPCS: A0425; A0427

== ENCOUNTER 2022-08-14 22:40 | Emergency (ER) | payer MEDICARE, OTHER, SELFPAY ==
[2022-08-14 22:47] VITALS: BP 134/73; PULSE 91; RESP 16; TEMP 36.6; O2SAT 93; BMI 35.4
--- OUTSIDE RECORDS SUMMARY | 2022-08-14 22:57 | XMS_ITS | Encounter Summary ---
:1945 Author Organization [facility] Address [address] [place] [address] Care Team Providers Name Role Phone Elsewhere, Pcp Primary Care Provider Unavailable Reason for Referral Outpatient (Routine) - Authorized Specialty Diagnoses / Procedures Referred By Contact Refer red To Contact Dermatology Marianela Braden M.D . [facility] [address] [place], [place] [address] Referral ID Status Reason Start Date Expiration Date Visits V isits Requested Authorized [id number] Authorized 06/28/2022 06/27/2025 1 1 Reason for Visit Reason Comments Biopsy Shave left medial calf and r ight medial calf Outpatient (Routine) - Closed Specialty Diagnoses / Procedures Referred By Contact Refer red To Contact Dermatology Diagnoses Tumor Skin Uncertain Behavior Marianela Braden M.D. [facility] Procedures Dermatology misc minor procedure [address] [place] [address] Referral ID Status Reason Start Date Expiration Date Visits Requ ested Visits Authorized [id number] Closed 06/06/2022 06/06/2023 1 1 Encounter Details Date Type Department Care Team Description 06/28/2022 Procedure visit Department of Marianela Braden Tumor Skin Uncertain Dermatology in Tomás Hale M.D. [place], [place] [address] [phone] Social History Tobacco Use Types Packs/Day Years Used Date Smoking Tobacco: Unknown Smokeless Tobacco: Never Sex Assigned at Date Recorded Not on file documented as of this encounter Progress Notes Marianela Braden M.D. - 06/28/2022 10:00 AM CDT SUBJECTIVE CHIEF COMPLAINT / REASON FOR VISIT Shave biopsies x 2 HISTORY OF PRESENT ILLNESS Jessica Meek is a pleasant 76 y.o. female who presents for shave biopsies x 2 involving the left medial calf and right medial calf. The patient was last seen by me in Dermatology clinic on 06/06/22. 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 She denies a personal history for melanoma. Her brother has had melanoma. She uses sunscreen. She denies any new or changing lesions today. MEDICAL HISTORY 1. Right spiritism: History of basal cell carcinoma, status post Mohs surgery in 2013 done elsewhere 2. History of type II diabetes mellitus 3. History of congestive heart failure 4. History of lower extremity edema 5. Negative for melanoma FAMILY HISTORY Melanoma in brother OBJECTIVE PHYSICAL EXAMINATION General: Awake, alert, in no acute distress, and with appropriate affect. Skin: Limited skin exam done today. Examination of the left lower medial calf reveals a 2 x 1.5 cm scaly slightly erythematous plaque, possible representing a seborrheic keratosis vs lichenoid keratosis, rule out squamous cell carcinoma.(previous biopsy years ago showed a verrucal keratosis but does not look like a VK currently) Examination of the right lower medial calf reveals a 1.8 x 1 cm similar slightly erythematous scaly plaque, probable seborrheic keratosis vs lichenoid keratosis, rule out squamous cell carcinoma. Examination of the left lateral jacobo reveals a scab at a previous trauma site and I have recommendedthat she apply Vaseline ointment twice daily and avoid Neosporin. If this starts to look infected she should follow up with her primary care doctor immediately as she is diabetic and she understands. No evidence for infection at this time ASSESSMENT / PLAN #1 Left lower medial calf: Possible seborrheic keratosis vs lichenoid keratosis, rule out squamous cell carcinoma We recommend a partial shave biopsy of the left lower medial calf, removing a smaller portion of thelarger lesion. Photograph taken today with patient's verbal consent. We will correspond as to the results and if any further treatment is needed. PROCEDURAL PAUSE: Procedural pause conducted to verify: correct patient identity, procedure to be performed, and as applicable, correct side and site, correct patient position, and availability of implants, special equipment or special requirements. PROCEDURE DETAILS: Partial shave biopsy We explained the potential diagnosis and recommended that we obtain a biopsy. The risks and benefitsof the procedure were discussed, and the patient consented to these procedures. The patient denies any allergies to local anesthetics. Using 1% lidocaine with epinephrine for local anesthesia, a partial shave biopsy was obtained from the left lower medial calf, removing a smaller portion of the largerlesion. Biopsy submitted to Dermatopathology for H&E. Special stains will be performed as indicated. The bleeding was well controlled with application of aluminum chloride. Dressing was applied, and wound care instructions were explained. Biopsy results and any further recommendations will be communicated to the patient by letter. Patient given pamphlet [id number]. Discussed the risks, benefits, alternatives, and the necessity of other members of the healthcare team participating in the procedure. All questions answered and consent given. #2 Right lower medial calf: Probable seborrheic keratosis vs lichenoid keratosis, rule out squamous cell carcinoma I discussed with the patient that this lesion could represent a benign seborrheic keratosis or lichenoid keratosis but I cannot entirely exclude a squamous cell carcinoma and I would prefer to remove it. I recommend a shave biopsy of the right lower medial calf. She would prefer to defer the biopsy at this time as she is diabetic and would prefer to avoid having multiple open wounds involving the legs, which is very reasonable. I discussed with her that we can follow the lesion clinically and we will only biopsy the left lower medial calf at this time. I discussed with her that once we get the biopsy results from the left lower medial calf biopsy, we could consider bringing her in for a biopsy of the right lower medial calf if the left calf lesion which looks similar does come back as a squamous cell carcinoma and she understands and is in agreement with this plan. PATIENT EDUCATION: Ready to learn. No apparent learning barriers were identified. Learning preferences include listening. Explained diagnosis and treatment plan; patient/guardian of patient expressed understanding of thecontent. By signing my name below, I, Zofia Schmitz, attest that this documentation has been prepared under the direction and in the presence of Marianela Braden M.D. Electronically Signed: nay Power. 06/21/2022. 5:57 PM CDT. I, Marianela Braden M.D., personally performed the services described in this documentation. All medical record entries made by the scribe were at my direction and in my presence. I have reviewed the chart and discharge instructions (if applicable) and agree that the record reflects my personal performance and is accurate and complete. Marianela Braden M.D. documented in this encounter Miscellaneous Notes Result Encounter Note - Marianela Braden M.D. - 07/05/2022 12:19 PM CDT Left medial calf: Benign lesion letter [place] patient. Please send letter documented in this encounter Plan of Treatment Upcoming Encounters Date Type Specialty Care Team Description 09/27/2022 Office Visit Dermatology Marianela Braden M.D. [address] [place], [place] [phone] (Wo rk) Scheduled Referrals Name Type Priority Associated Order Schedule Diagnoses Dermatology office Outpatient Referral Routine Ex pected: visit (clinic) 09/28/2022 (Approximate), Expires: 09/28/2023 documented as of this encounter Procedures Procedure Name Priority Date/Time Associated Comments Diagnosis DERMATOPATHOLOGY CONSULT Routine 06/28/2022 9:49 Tumor Skin Results for this AM CDT Uncertain Behavior procedure are in the results section. documented in this encounter Results Dermatopathology Consult (06/28/2022 9:49 AM CDT) Component Value Ref Test Analysis Performed Pathologis t Range Method Time At Signature 07/04/2022 PDRM 1:51 PM CDT Participated in David Santacruz 07/04/2022 ArikD. - Pathology 1:51 PM Interpretation Fellow CDT Report Fidelina Hale. 07/04/2022 PDRM electronically Neris Norton 1:51 PM signed by CDT Gross Received in formalin labeled with the patient's name, 07/04/2022 PDRM Description: medical record number, and left calf, medial is a 1. 0 x 1:51 PM 0.6 x 0.1 cm white, previously inked blue skin shave CDT biopsy. ??Encompassing the entire skin surface is a white, hypopigmented, slightly raised, slightly firm, friable lesion with ill-defined borders. ??Specimen bisected longitudinally and submitted entirely in cassette A1. Grossed by JEFFERY. Interpetation FINAL DIAGNOSIS 07/04/2022 PDRM A. ??DermPath Consult Wet Tissue; Left calf medial, Skin 1:51 PM shave biopsy: ??Verrucal keratosis CDT Specimen (Source) Anatomical Collection Method Collection Time Re ceived Time Location / / Volume Laterality Skin (Left calf) 06/28/2022 9:49 AM CDT Narrative This result has an attachment that is no t available. Marianela Braden M.D. 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
--- OUTSIDE RECORDS SUMMARY | 2022-08-14 22:57 | XMS_ITS | Clinical Summary ---
:1945 Author Organization [facility] Address [address] [place] [address] Care Team Providers Name Role Phone Elsewhere, Pcp Primary Care Provider Unavailable Source Comments Patient records contain information from all sites at [facility]. For routine questions regarding patient records, call [phone] during business hours, M-F 8:00 AM - 5:00 PM Central Time. Record requests for emergency care only can be directed to [phone] at any time.[facility] Allergies Active Allergy Reactions Severity Noted Date Comments Cat Dander Other (see comments) High 02/05/2018 Runny n ose itchy eyes Pollen Extracts Other (see comments) Low 07/31/2018 Runn y nose, itchy eyes Medications Medication Sig Dispensed Refills Start Date End Date Status aspirin [address] Take 1 tablet by 0 03/14/2014 Active tablet mouth daily. atorvastatin (LIPITOR) Take 1 tablet by 0 01/09/2017 Active 40 mg tablet mouth at bedtime. cyanocobalamin Take 1,000 mcg by 0 12/15/2017 Active (VITAMIN B12) 500 mcg mouth daily. tablet eucalyptus-peppermint Administer 1 0 01/23/2018 Active oil nasal solution application into each nostril 2 (two) times a day. fluvoxaMINE (LUVOX) Take 250 mg by 0 06/05/2018 Active 100 mg tablet mouth at bedtime. losartan (COZAAR) 50 Take 50 mg by 0 05/29/2018 Active mg tablet mouth at bedtime. metFORMIN XR Take 2,000 mg by 0 02/05/2018 Active (GLUCOPHAGE-XR) 500 mg mouth every 24 hr tablet evening. vit Take 1 capsule by 0 12/02/2015 A ctive C/E/Zn/coppr/lutein/ze mouth 2 (two) axan (PRESERVISION times a day. AREDS-2 ORAL) omeprazole (PriLOSEC) Take 1 tablet by 0 08/09/2017 Active 20 mg capsule mouth daily. blood sugar diagnostic USE TO TEST BLOOD 0 9 Active strips GLUCOSE LEVELS TWICE DAILY. montelukast Take 10 mg by 0 02/05/2018 Act manny (SINGULAIR) 10 mg mouth. tablet naproxen sodium Take 1 tablet by 0 07/07/2017 Active (ALEVE/ANAPROX) 220 mg mouth daily as tablet needed glipiZIDE (GLUCOTROL Take 2.5 mg by 1 06/16/2019 Active XL) 5 mg 24 hr tablet mouth daily. before meal torsemide (DEMADEX) 20 Take 40 mg by 0 Active mg tablet mouth daily. magnesium 200 mg Take 200 mg by 0 Active tablet mouth every morning before breakfast. losartan (COZAAR) 100 Take 100 mg by 0 01/23/2021 Active mg tablet mouth daily. dulaglutide Inject 1.5 mg 0 03/02/2021 Act manny (Trulicity) 1.5 mg/0.5 under the skin mL pen injector once a week. injection magnesium Take 400 mg by 0 03/08/2021 Acti ve oxide,aspartate,citr mouth. 400 mg magnesium capsule pyridoxine, vitamin Take 100 mg by 0 Active B6, (B-6) 100 mg mouth daily. tablet metoprolol succinate Take 50 mg by 0 05/23/2022 Active (TOPROL-XL) 50 mg 24 mouth daily. hr tablet amLODIPine (NORVASC) Take 5 mg by 0 06/08/2022 Active 2.5 mg tablet mouth. Active Problems Problem Noted Date Hyperlipidemia Mixed 08/09/2017 Overview: Hyperlipidemia Mixed Alcoholism Personal History 02/27/2014 Overview: Alcoholism Pers Hx Diabetes Mellitus Type 2 11/25/2013 Overview: DM II (or NOS), controlled Hypertension 04/11/2013 Overview: HTN [Hypertension] Encounters Date Type Specialty Care Team Description 06/28/2022 Ancillary Procedure 06/28/2022 Ancillary Procedure 06/28/2022 Procedure visit Dermatology Marianela Braden, Tumor Sk in Uncertain M.D. Behavior 06/06/2022 Ancillary Procedure 06/06/2022 Ancillary Procedure 06/06/2022 Office Visit Dermatology Marianela Braden, Tumor Skin Uncertain Behavior (Primary Dx); M.D. Keratosis Actin ic; Nevi Multiple; Keratosis Sebor rheic from Last 3 Months Immunizations Name Administration Dates Next Due DTaP-IPV 09/07/2010 HZV (ZOSTAVAX) 01/23/2014 Influenza Split 08/16/2013 Influenza, Unspecified 07/21/2016, 08/19/2015, 07/09/2014, 1 , 08/20/2012 PCV13 10/08/2014 PPSV23 05/04/2011 Tdap 09/07/2010 Family History Medical History Relation Name Comments Basal cell carcinoma Brother Melanoma Brother Coronary artery disease Father Heart attack Father Hypertension Father Cataracts Mother Relation Name Status Comments Brother Father Mother Social History Tobacco Use Types Packs/Day Years Used Date Smoking Tobacco: Unknown Smokeless Tobacco: Never Sex Assigned at Date Recorded Not on file Last Filed Vital Signs Vital Sign Reading Time Taken Comments Blood Pressure 138/58 08/09/2017 3:40 PM CDT Pulse 80 08/09/2017 3:40 PM CDT Temperature - - Respiratory Rate 16 08/09/2017 3:40 PM CDT Oxygen Saturation - - Inhaled Oxygen Concentration - - Weight 99.5 kg (219 lb 4 oz) 08/09/2017 3:40 PM CDT Height 160.5 cm (5' 3.19) 08/09/2017 3:40 PM CDT Body Mass Index 38.61 08/09/2017 3:40 PM CDT Plan of Treatment Upcoming Encounters Date Type Specialty Care Team Description 09/27/2022 Office Visit Dermatology Marianela Braden M.D. [address] [place] [address] [phone] (Wo rk) Health Maintenance Due Date Last Done Comments Hepatitis C Screening 1945 Office Visit for Blood Pressure 1945 Check / Re-check Hepatitis B Vaccines (1 of 3 - 2005 Risk 3-dose series) Dilated Eye Exam 07/09/2016 07/09/2015 Diabetes Education 04/25/2018 04/25/2017, 12/23/2014 Diabetic Office Visit with Foot 04/25/2018 04/25/2017, 12/07 Exam Hemoglobin A1C 06/12/2018 12/13/2017 (Performed elsewhere), 06/28/2017, 04/25/2017, Additional history exists Urine Albumin 12/13/2018 12/13/2017 (Performed elsewhere), 01/19/2017, 12/02/2015, Additional history exists Depression Screening (Annual 11/06/2021 PHQ-2) Fall Risk Screen (Annual) 11/06/2021 Creatinine Level 03/08/2022 03/08/2021, 07/10/2020, 03/18/2020, Additional history exists Potassium Level 03/08/2022 03/08/2021, 07/10/2020, 03/18/2020, Additional history exists Sodium Level 03/08/2022 03/08/2021, 07/10/2020, 03/18/2020, Additional history exists COVID-19 Vaccine (5 - Booster for 04/15/2022 02/18/2022, , Pfizer series) 01/16/2021, Additional history exists Influenza Vaccine (#1) 2022 07/24/2021, 07/10/2020, 07/21/2017, Additional history exists DTaP,Tdap,and Td Vaccines (3 - Td 08/07/2030 08/07/2020, , or Tdap) 09/07/2010, Additional history exists Pneumococcal vaccine (65+ years) Completed 10/08/2014, 07/2014, 05/04/2011, Additional history exists Zoster Vaccines Completed 03/30/2018, 01/13/2018, 01/04/2018, Additional history exists Procedures Procedure Name Priority Date/Time Associated Comments Diagnosis DERMATOLOGY IMAGE EXAM Routine 06/28/2022 10:26 R esults for this AM CDT procedure are i n the results section. DERMATOLOGY IMAGE EXAM Routine 06/28/2022 10:25 R esults for this AM CDT procedure are i n the results section. DERMATOPATHOLOGY CONSULT Routine 06/28/2022 9:49 Tumor Skin Results for this AM CDT Uncertain Behavior procedure are in the results section. DERMATOLOGY IMAGE EXAM Routine 06/06/2022 12:07 R esults for this PM CDT procedure are i n the results section. DERMATOLOGY IMAGE EXAM Routine 06/06/2022 12:07 R esults for this PM CDT procedure are i n the results section. from Last 3 Months Results lower extremity, left calf 413-Dermatology Image Exam (06/28/2022 10:26 AM CDT) Only the most recent of4 resultswithin the time period is included. Specimen (Source) Anatomical Collection Method Collection Time Re ceived Time Location / / Volume Laterality 06/28/2022 10:23 AM CDT Narrative IIMS - 06/28/2022 10:26 AM CDT This order has been created and auto-finalized to support the import of images acquired without order. The clini pamela documentation to support these images can be found on the encounter junior t produced images. Provider Not In System IMG NON RAD IMAGING PROCEDUR ES Performing Organization Address City/State/ZIP Code Phon e Number [facility] Dermatopathology Consult (06/28/2022 9:49 AM CDT) Component Value Ref Test Analysis Performed Pathologis t Range Method Time At Signature 07/04/2022 PDRM 1:51 PM CDT Participated in David Santacruz 07/04/2022 PDR the [facility] - Pathology 1:51 PM Interpretation Fellow CDT [...] Address City/State/ZIP Code Phon e Number [facility] [address] [place], [place] [address] [facility] [place] [address] Laboratories-[facility] [address] from Last 3 Months Insurance Payer Benefit Plan / Subscriber ID Effective Phone Address T ype Group Dates MEDICARE MEDICARE A AND B [id number] 2010-Prese [address] [place] [address] AETNA AETNA [id number] 2018-Prese [phone] [address] [place] [id number] [place] [address] (Work) [phone] Care Teams Materials Associate Relationship Specialty Start Date End Date Elsewhere, Pcp PCP - General Family Medicine 01/30/19
--- OUTSIDE RECORDS SUMMARY | 2022-08-14 22:57 | XMS_ITS | Encounter Summary ---
:1945 Author Organization [facility] Address [address] [place] [address] Care Team Providers Name Role Phone Elsewhere, Pcp Primary Care Provider Unavailable Reason for Referral Outpatient (Routine) - Closed Specialty Diagnoses / Procedures Referred By Contact Refer red To Contact Dermatology Marianela Braden M.D . [facility] Region [address] [place] [address] Referral ID Status Reason Start Date Expiration Date Visits Requ ested Visits Authorized [id number] Closed 05/04/2020 05/04/2021 1 1 Scheduling Instructions Recheck lesion involving left lower leg Reason for Visit Reason Comments Follow-up Appointment Request (Routine) - Closed Specialty Diagnoses / Procedures Referred By Contact Refer red To Contact Dermatology Referral ID Status Reason Start Date Expiration Date Visits Requ ested Visits Authorized [id number] Closed 11/11/2019 11/10/2020 1 Encounter Details Date Type Department Care Team Description 05/04/2020 Office Visit Department of Marianela Braden, Keratosis Actinic (Primary Dx); Dermatology in [place] Keratosis Seborrheic; [place], [place] [address] [facility] Verrucal Keratosis [address] [place] [phone] Social History Tobacco Use Types Packs/Day Years Used Date Smoking Tobacco: Unknown Smokeless Tobacco: Never Sex Assigned at Date Recorded Not on file documented as of this encounter Progress Notes Marianela Braden M.D. - 05/04/2020 11:15 AM CDT SUBJECTIVE CHIEF COMPLAINT / REASON FOR VISIT Skin lesions HISTORY OF PRESENT ILLNESS Ms. Jessica Meek is a 74 y.o. female who presents today for evaluation of a skin lesions involving herface and left medial calf. She has a history of a basal cell carcinoma status post Mohs surgery fromher right cheondoism in June 2013 at [facility]. She denies any history for melanoma. Her brother has had melanoma. Allergies Allergen Reactions ??? Cat Dander Other (see comments) Runny nose itchy eyes ??? Pollen Extracts Other (see comments) Runny nose, itchy eyes MEDICAL HISTORY Basal cell carcinoma involving right cheondoism status post Mohs surgery in June 2013 at [facility]. Negative history for melanoma. FAMILY HISTORY Positive family history for melanoma with brother having had melanoma OBJECTIVE PHYSICAL EXAMINATION General: Awake, alert, in no acute distress, and with appropriate affect. Skin: Examination of her face and left lower leg done in clinic today. Examination of her right cheondoism reveals no evidence for recurrence of her basal cell carcinoma. Examination of her forehead reveals 2 actinic keratoses. Examination of her right angle of jaw reveals a irritated seborrheic keratosis. Examination of the left medial calf reveals a scaly plaque that measures 1.7 x 1.1 cm that looks clinically compatible with an SK but was previously biopsied approximately 4 years ago in read out as averrucal keratosis. It does not look suspicious today. ASSESSMENT / PLAN #1 Forehead: Actinic keratoses x2 CONSENT Discussed the risks, benefits, alternatives, and the necessity of other members of the healthcare team participating in the procedure. All questions answered and consent given. PROCEDURE INFORMATION Given the precancerous nature of this lesion(s), treatment is medically indicated. After discussion of the risks, benefits and alternatives to treatment with cryotherapy, informed consent was obtained.We treated a total of 2 lesion(s) with two 10-second freeze-thaw cycles of liquid nitrogen cryotherapy. The patient tolerated the procedure well. Aftercare instructions were provided in written and verbal form to the patient. Should any of these lesions recur, the patient should return for biopsy or further evaluation. #2 Left medial calf: Seborrheic keratosis versus verrucal keratosis This lesion clinically looks like a seborrheic keratosis but was previously biopsied 4 years ago andshowed verrucal keratosis. It has been stable. Photograph taken today and measurement done. Did discuss possibility of doing a small shave biopsy to reconfirm diagnosis the patient states it took 3-4 months to heal the last time a small a partial shave biopsy was done. We will follow clinically. Follow up immediately if any changes occur. Otherwise follow up in 3-4 months. PATIENT EDUCATION: Ready to learn. No apparent learning barriers were identified. Learning preferences include listening. Explained diagnosis and treatment plan; patient/guardian of patient expressed understanding of thecontent. documented in this encounter Plan of Treatment Upcoming Encounters Date Type Specialty Care Team Description 09/27/2022 Office Visit Dermatology Marianela Braden M.D. [address] [place] [phone] (Wo rk) Scheduled Referrals Name Type Priority Associated Order Schedule Diagnoses Dermatology office Outpatient Referral Routine Ex pected: visit (clinic) 08/04/2020 (Approximate), Expires: 05/04/2023 documented as of this encounter Visit Diagnoses Diagnosis Keratosis Actinic - Primary Keratosis Seborrheic Verrucal Keratosis documented in this encounter Additional Health Concerns Assessment Noted Time PHQ-9 Depression Total Score: 1 12/02/2015 8:50 AM ERGONOMICS ENGINEER documented as of this encounter Care Teams Outsole Molder Relationship Specialty Start Date End Date Elsewhere, Pcp PCP - General Family Medicine 01/30/19 documented as of this encounter
--- OUTSIDE RECORDS SUMMARY | 2022-08-14 22:57 | XMS_ITS | Encounter Summary ---
:1945 Author Organization [facility] Address [address] [place] [address] Care Team Providers Name Role Phone Elsewhere, Pcp Primary Care Provider Unavailable Reason for Visit Reason Comments Follow-up left calf and f/u face lesio ns Outpatient (Routine) - Closed Specialty Diagnoses / Procedures Referred By Contact Refer red To Contact Dermatology Marianela Braden M.D . [facility] Region [address] [place] [phone] Referral ID Status Reason Start Date Expiration Date Visits Requ ested Visits Authorized [id number] Closed 05/04/2020 05/04/2021 1 1 Encounter Details Date Type Department Care Team Description 08/18/2020 Office Visit Department of Marianela Braden, Keratosis Actinconstantino (Primary Dx); Dermatology in [facility] Keratosis Seborrheic [place], [place] [address] [phone] Social History Tobacco Use Types Packs/Day Years Used Date Smoking Tobacco: Unknown Smokeless Tobacco: Never Sex Assigned at Date Recorded Not on file documented as of this encounter Progress Notes Marianela Braden M.D. - 08/18/2020 10:00 AM CDT SUBJECTIVE CHIEF COMPLAINT / REASON FOR VISIT Recheck sk vs vk involving the left medial calf Recheck skin lesions involving the face and legs HISTORY OF PRESENT ILLNESS Jessica Meek is a pleasant 74 y.o. female who follows up for recheck of several lesions including: an SK vs VK involving the left medial calf and potential partial shave biopsy, and lesions involving herface. The patient was last seen by me in Dermatology clinic on 05/04/2020, at that time the lesion clinically looks like a seborrheic keratosis but was previously biopsied 4 years ago and showed verrucal keratosis and it remained stable. At that time we did discuss the possibility of doing a small shave biopsy today to reconfirm diagnosis. Today she states that the lesion involving the left medial calf has gotten smaller since her last visit in dermatology clinic. She also has lesions involving her face she would like evaluated. MEDICAL HISTORY 1. Right orthodoxy: Basal cell carcinoma, status post Mohs surgery in June 2013 at [facility]. 2. Negative history for melanoma. 3. History of type 2 diabetes 4. Congestive heart failure ?? FAMILY HISTORY Brother with a history of melanoma ?? OBJECTIVE PHYSICAL EXAMINATION General: Awake, alert, in no acute distress, and with appropriate affect. Skin: Limited skin exam. Examination of the right orthodoxy reveals no clinical evidence for local recurrence for bcc. Examination today reveals a total of 5 AKs, includin involving the left forehead, 2 involving the right cheek, Examination reveals some telangiectasia involving her nose but no lesions. Examination of the left medial calf reveals a 1.8 cm x 1.0 cm seborrheic keratosis. Examination of the right medial calf reveals a 2 cm x 1.4 cm larger seborrheic keratosis. Examination of the upper chest reveals several seborrheic keratosis. ASSESSMENT / PLAN #1 Forehead, cheek: Actinic keratosis x 5 lesions Given the precancerous nature of this lesion(s), treatment is medically indicated. After discussion of the risks, benefits and alternatives to treatment with cryotherapy, informed consent was obtained.We treated a total of 5 lesion(s) with two 5-10-second freeze-thaw cycles of liquid nitrogen cryother apy. The patient tolerated the procedure well. Aftercare instructions were provided in written and verbal form to the patient. Should any of these lesions recur, the patient should return for biopsy orfurther evaluation. Discussed the risks, benefits, alternatives, and the necessity of other members of the healthcare team participating in the procedure. All questions answered and consent given. #2 Left and right medial calf, upper chest: Seborrheic keratosis The benign nature of the skin lesion(s) was discussed with the patient. No treatment is required. I recommend continued observation. Should symptoms or changes develop related to this condition, I would recommend a return visit for reassessment. PATIENT EDUCATION: Ready to learn. No apparent learning barriers were identified. Learning preferences include listening. Explained diagnosis and treatment plan; patient/guardian of patient expressed understanding of thecontent. By signing my name below, I, Michelle Macedo, attest that this documentation has been prepared underthe direction and in the presence of Marianela Braden M.D. Electronically Signed: nay Gregorio. 08/18/2020. I, Marianela Braden M.D., personally performed the services described in this documentation. All medical record entries made by the scribe were at my direction and in my presence. I have reviewed the chart and discharge instructions (if applicable) and agree that the record reflects my personal performance and is accurate and complete. Marianela Braden M.D. 08/18. documented in this encounter Plan of Treatment Upcoming Encounters Date Type Specialty Care Team Description 09/27/2022 Office Visit Dermatology Marianela Braden M.D. [address] [place], [place] [phone] (Wo rk) documented as of this encounter Visit Diagnoses Diagnosis Keratosis Actinic - Primary Keratosis Seborrheic documented in this encounter Additional Health Concerns Assessment Noted Time PHQ-9 Depression Total Score: 1 12/02/2015 8:50 AM HAND I TUBE BENDER documented as of this encounter Care Teams Parts Cataloguer Relationship Specialty Start Date End Date Elsewhere, Pcp PCP - General Family Medicine 01/30/19 documented as of this encounter
--- OUTSIDE RECORDS SUMMARY | 2022-08-14 22:57 | XMS_ITS | Encounter Summary ---
:1945 Author Organization [facility] Address [address] [place] [address] Care Team Providers Name Role Phone Elsewhere, Pcp Primary Care Provider Unavailable Reason for Visit Reason Comments Skin Check Appointment Request (Routine) - Closed Specialty Diagnoses / Procedures Referred By Contact Refer red To Contact Dermatology Referral ID Status Reason Start Date Expiration Date Visits Requ ested Visits Authorized [id number] Closed 11/24/2020 11/24/2021 1 1 Encounter Details Date Type Department Care Team Description 02/15/2021 Office Visit Department of Marianela Braden, Keratosis Actinic (Primary Dx); Dermatology in [place], [place] [address] [facility] Keratosis Seborrheic [address] [place] [phone] Social History Tobacco Use Types Packs/Day Years Used Date Smoking Tobacco: Unknown Smokeless Tobacco: Never Sex Assigned at Date Recorded Not on file documented as of this encounter Progress Notes Marianela Braden M.D. - 02/15/2021 12:45 PM CDT SUBJECTIVE CHIEF COMPLAINT / REASON FOR VISIT Skin cancer recheck HISTORY OF PRESENT ILLNESS Ms. Jessica Meek is a 75 y.o. female who presents today for a full skin cancer screening examination. The patient was last seen by me in Dermatology clinic on 08/18/2020 for an evaluation of three lesions involving the left and right medial calf and the upper chest which we felt were compatible with benign seborrheic keratosis. The patient has a history of basal cell carcinoma involving the right rastafari, status post Mohs surgery in June 2013 at [facility]. The patient denies a personal history for melanoma. She does have a brother with a history of melanoma. Today she would like an evaluation of her lower legs bilaterally. She was recently diagnosed by her primary physician with lipodermatosclerosis. She was recently treated a topical prescription ointmentalthough she is unsure of the name of the ointment. Allergies Allergen Reactions ??? Cat Dander Other (see comments) Runny nose itchy eyes ??? Pollen Extracts Other (see comments) Runny nose, itchy eyes MEDICAL HISTORY 1. Right rastafari: Basal cell carcinoma, status post Mohs surgery in June 2013 at [facility]. 2. Negative history for melanoma. 3. History of type 2 diabetes 4. Congestive heart failure 5. Lower legs-history of edema on diuretic ?? FAMILY HISTORY Brother with a history of melanoma ?? OBJECTIVE PHYSICAL EXAMINATION General: Awake, alert, in no acute distress, and with appropriate affect. Eyes: No scleral injection or icterus. No eyelid abnormalities. Lymph: My lower extremity edema. Skin: I have examined the scalp, face, neck, chest, abdomen, back, bilateral upper extremities, and bilateral lower extremities. My scribe Priscilla was present for the full exam today. Examination of the right rastafari reveals no clinical evidence for local recurrence of bcc. Examination of the upper chest reveals several seborrheic keratosis. ??Examination today reveals a total of 2 AKs involving the left cheek, Examination of the lower legs reveals some blanchable erythema with some dry skin and venous stasis changes, some slight pitting edema. No significant induration but mild firmness of the medial legs bilaterally. Examination of face, trunk, and extremities reveals multiple benign appearing nevi and lentigines, and multiple SKs. Examination today reveals no suspicious lesions for skin cancer. ASSESSMENT / PLAN #1 Right rastafari: Basal cell carcinoma, status post Mohs surgery in June 2013 at [facility], norecurrence Examination today reveals no clinical evidence of recurrence of non-melanoma skin cancer. Follow up immediately if changes are noticed during monthly self examination. Otherwise followup in 6-12 months. #2 Lower legs: Venous stasis changes On exam today she has venous stasis changes and some mild edema involving the lower legs. There is no significant induration but the mild firmness may represent very early lipodermatosclerosis. I discussed that I do not feel a biopsy is needed as she would likely have issues with poor healing and she c ompletely agrees. I have recommended she continue to use the compression stockings as prescribed by her primary care physician, leg elevation, and continue with moisturizing such as Vanicream twice daily. I have also asked her to follow up with her primary care doctor and/ or cardiology regarding her mild edema and she is on a diuretic but will follow up with them. Follow up in Derm as needed. #3 Left cheek: Actinic keratosis x 2 lesions Given the precancerous nature of this lesion(s), treatment is medically indicated. After discussion of the risks, benefits and alternatives to treatment with cryotherapy, informed consent was obtained.We treated a total of 2 lesion(s) with two 10-15 second freeze-thaw cycles of liquid nitrogen cryothe rapy. The patient tolerated the procedure well. Aftercare instructions were provided in written and verbal form to the patient. Should any of these lesions recur, the patient should return for biopsy or further evaluation. Discussed the risks, benefits, alternatives, and the necessity of other membersof the healthcare team participating in the procedure. All questions answered and consent given. #4 Face, trunk, and extremities: Seborrheic keratosis The benign nature of the skin lesion(s) was discussed with the patient. No treatment is required. I recommend continued observation. Should symptoms or changes develop related to this condition, I would recommend a return visit for reassessment. #5 Face, trunk, and extremities: Multiple benign appearing nevi and lentigines The ABCDE criteria for melanoma was reviewed with the patient. None of the patient's nevi reach the clinical threshold for biopsy. I recommend continued sun protection, self-skin examinations, and observation. Should any of the patient's nevi change in size, color, texture, or shape or develop symptoms such as itching or bleeding, I recommend an immediate return visit for reassessment. PATIENT EDUCATION: Ready to learn. No apparent learning barriers were identified. Learning preferences include listening. Explained diagnosis and treatment plan; patient/guardian of patient expressed understanding of thecontent. By signing my name below, I, Michelle Macedo, attest that this documentation has been prepared underthe direction and in the presence of Marianela Braden M.D. Electronically Signed: nay Gregorio. 02/15/2021 I, Marianela Braden M.D., personally performed the services described in this documentation. All medical record entries made by the scribe were at my direction and in my presence. I have reviewed the chart and discharge instructions (if applicable) and agree that the record reflects my personal performance and is accurate and complete. Marianela Braden M.D. 02/15 documented in this encounter Plan of Treatment Upcoming Encounters Date Type Specialty Care Team Description 09/27/2022 Office Visit Dermatology Marianela Braden M.D. 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
--- OUTSIDE RECORDS SUMMARY | 2022-08-14 22:57 | XMS_ITS | Encounter Summary ---
:1945 Author Organization [facility] Address [address] [place] [address] Care Team Providers Name Role Phone Elsewhere, Pcp Primary Care Provider Unavailable Reason for Visit Reason Comments Follow-up Appointment Request (Routine) - Closed Specialty Diagnoses / Procedures Referred By Contact Refer red To Contact Referral ID Status Reason Start Date Expiration Date Visits Requ ested Visits Authorized [id number] Closed 06/21/2021 06/21/2022 1 1 Encounter Details Date Type Department Care Team Description 09/13/2021 Office Visit Department of Marianela Braden, Keratosis Actinic (Primary Dx); Dermatology in [place], [place] [address] [phone] Social History Tobacco Use Types Packs/Day Years Used Date Smoking Tobacco: Unknown Smokeless Tobacco: Never Sex Assigned at Date Recorded Not on file documented as of this encounter Progress Notes Marianela Braden M.D. - 09/13/2021 10:30 AM CST SUBJECTIVE CHIEF COMPLAINT / REASON FOR VISIT Lesion x 1 HISTORY OF PRESENT ILLNESS Jessica Meek is a pleasant 75 y.o. female who presents for evaluation of a lesion lateral to the righteye. The patient was last seen by me in Dermatology clinic on 02/15/21. The lesion has been present for about one month and got slightly larger. The lesion has been asymptomatic. The patient also reports having red patches involving lower legs for 6-12 months. She denies any itching. During our last visit on 02/15/21, we felt the patches were compatible with venous stasis changes. I recommended compression stockings, leg elevation and moisturizer use. She states the red patcheshave overall been improving although not resolved. The patient has a history of basal cell carcinoma involving the right rastafarian,??status post Mohs surgery in 2013 done elsewhere. She denies a personal history for melanoma. Her brother has had melanoma.She uses sunscreen. MEDICAL HISTORY 1. Right rastafarian:??History of basal cell carcinoma,??status post Mohs surgery in 2013 done elsewhere 2. History of type II diabetes mellitus 3. History of congestive heart failure 4. History of lower extremity edema 5. Negative for melanoma FAMILY HISTORY Melanoma in brother OBJECTIVE PHYSICAL EXAMINATION General: Awake, alert, in no acute distress, and with appropriate affect. Skin: Limited skin exam done today. Examination today reveals actinic keratoses, including 6 left forehead, 1 lateral to left eyebrow, 1left upper cheek Examination of the right rastafarian reveals no evidence for recurrence of basal cell carcinoma. Examination lateral to the right eye reveals a 2 x 1.5 mm firm white papule, compatible with a miliacyst. Examination of the lower legs reveals varicose veins with blanchable erythema and venous stasis changes. There is no active dermatitis or evidence for cellulitis. Examination of the right lower medial calf reveals a 2.2 x 1.5 cm light-brown scaly plaque, compatible with a seborrheic keratosis. Examination of the neck reveals seborrheic keratoses. ASSESSMENT / PLAN #1 Lateral to right eye: Milia cyst The benign nature of the skin lesion(s) was discussed with the patient. No treatment is required. I recommend continued observation. Should this lesion change in size, color, texture, or shape or develop symptoms such as itching or bleeding, I recommend an immediate return visit for reassessment. Follow up in 6 months for a recheck of the stated lesion(s). #2 Face: Actinic keratosis x 8 Given the precancerous nature of this lesion(s), treatment is medically indicated. After discussion of the risks, benefits and alternatives to treatment with cryotherapy, informed consent was obtained.We treated a total of 8 lesion(s) with two 5-10-second freeze-thaw cycles of liquid nitrogen cryother apy. The patient tolerated the procedure well. Aftercare instructions were provided in written and verbal form to the patient. Should any of these lesions recur, the patient should return for biopsy orfurther evaluation. Follow up in 1-2 months for recheck if these areas do not complete resolve. #3 Right lower medial calf and neck: Seborrheic keratosis The benign nature of the skin lesion(s) was discussed with the patient. No treatment is required. I recommend continued observation. Should this lesion change in size, color, texture, or shape or develop symptoms such as itching or bleeding, I recommend an immediate return visit for reassessment. #4 Lower legs: Venous stasis changes I recommend continuing to use compression stockings, leg elevation and moisturizing cream. The patient remains on a diuretic. Follow up as needed. #5 Right rastafarian:??History of basal cell carcinoma,??status post Mohs surgery in 2012 done elsewhere No clinical evidence of local recurrence today. Recommended monthly self-skin examinations to evaluate for new, changing, symptomatic, or otherwise worrisome lesions. Signs and symptoms of skin cancer discussed. Photoprotection was recommended. Return to Dermatology in 6-12 months for a full skin examor immediately if any new or changing lesions are noted. PATIENT EDUCATION: Ready to learn. No apparent learning barriers were identified. Learning preferences include listening. Explained diagnosis and treatment plan; patient/guardian of patient expressed understanding of thecontent. By signing my name below, I, Nito Peralta, attest that this documentation has been prepared under thedirection and in the presence of Marianela Braden M.D. Electronically Signed: nay Virk. 09/13/2021. 11:12 AM FISHER TERRAPIN. IMarianela M.D., personally performed the services described in this documentation. All medical record entries made by the scribe were at my direction and in my presence. I have reviewed the chart and discharge instructions (if applicable) and agree that the record reflects my personal performance and is accurate and complete. Marianela Braden M.D. ER TERRAPIN documented in this encounter Plan of Treatment Upcoming Encounters Date Type Specialty Care Team Description 09/27/2022 Office Visit Dermatology Marianela Braden M.D. [address] [place] [phone] (Wo rk) documented as of this encounter Visit Diagnoses Diagnosis Keratosis Actinic - Primary Milia documented in this encounter Additional Health Concerns Assessment Noted Time PHQ-9 Depression Total Score: 1 12/02/2015 8:50 AM FISHER TERRAPIN documented as of this encounter Care Teams Compacting Machine Operator/Tender Relationship Specialty Start Date End Date Elsewhere, Pcp PCP - General Family Medicine 01/30/19 documented as of this encounter
--- OUTSIDE RECORDS SUMMARY | 2022-08-14 22:57 | XMS_ITS | Clinical Summary ---
:1945 Author Organization [facility] [place] [address] Care Team Providers Name Role Phone Ashutosh Gonzales MD Primary Care Provider [phone] Qiana Huntley RN Unavailable Karrie Duarte RD Unavailable Allergies Active Allergy Reactions Severity Noted Date Comments Cat Dander Other - Describe In 02/05/2018 Comment Field Losartan Other - Describe In 07/28/2022 Increase d Creatinine and Comment Field potassium Medications Medication Sig Dispensed Refills Start End Date Status Date Vit Take 1 tablet 90 Cap 3 Active A,C,W-Rhxx-Hmjglw twice daily 7 (PRESERVISION AREDS) 14,320226-200 jerk-jh-kmxd cap cyanocobalamin Take 1 tablet by 90 tablet 3 Active (VITAMIN B12) 500 mouth once 8 mcg daily. tabletIndications: Vitamin B12 deficiency medication order Calcium 0 Act manny composer 0 loperamide Take 4mg by 48 tablet 1 Active (IMODIUM) 2 mg mouth with 1st 0 tablet loose stool, then 2mg with each subsequent loose stool. Max 16 mg in 24 hrs magnesium Take 400 mg by 0 Activ e oxide,aspartate,ci mouth once 1 tr 400 mg daily. magnesium cap montelukast Take 1 Tablet 30 Tablet 3 Acti ve (SINGULAIR) 10 mg (10 mg) by mouth 1 tabletIndications: at bedtime. Allergy, sequela CPAPIndications: CPAP machine for 1 Each 11 Active Obstructive sleep home use at 2 apnea pressure 14 cmw, full face mask x1/3month with a full face cushion x1/mo blood sugar USE TO TEST 200 Each 3 Active diagnostic BLOOD SUGARS 2 (OneTouch Verio TWICE DAILY test strips) stripIndications: Diabetes mellitus without complication (HC) atorvastatin Take 1 Tablet 90 Tablet 3 Act manny (LIPITOR) 40 mg (40 mg) by mouth 2 tabletIndications: at bedtime. Mixed hyperlipidemia metFORMIN Take 4 Tablets 360 Tablet 1 Acti ve (GLUCOPHAGE XR) (2,000 mg) by 2 500 mg mouth once daily Extended-Release with evening tabletIndications: meal. Diabetes mellitus without complication (HC) metoprolol Take 1 Tablet 90 Tablet 3 Activ e succinate (TOPROL (50 mg) by mouth 2 XL) 50 mg once daily. sustained-release tabletIndications: Acute systolic CHF (congestive heart failure) (HC) torsemide Take 2 Tablets 180 Tablet 3 Acti ve (DEMADEX) 20 mg (40 mg) by mouth 2 tabletIndications: once daily. Anasarca dulaglutide Inject 1.5 mg 2 mL 5 Acti ve (Trulicity) 1.5 subcutaneous 2 mg/0.5 mL once weekly. subcutaneous penIndications: Diabetes mellitus without complication (HC) fluvoxaMINE TAKE ONE TABLET 180 Tablet 1 A ctive (LUVOX) 100 mg BY MOUTH TWICE 2 tabletIndications: DAILY Compulsive behaviors, Obsessive-compulsi ve disorder, unspecified type amLODIPine Take 1 Tablet (5 90 Tablet 3 Ac tive (NORVASC) 5 mg mg) by mouth 2 tabletIndications: once daily. HTN (hypertension) naproxen (ALEVE) Take 1 tablet by 0 Discontinued 220 mg tablet mouth daily as 05 27 ( *Med needed complete/R egime n complete/L evel of care taina) omeprazole Take 1 Capsule 90 Capsule 3 07/28/20 Dis continued (PRILOSEC) 20 mg (20 mg) by mouth 2 22 (*Med Delayed-Release once daily com plete/Regime capsuleIndications before a meal. n : Chronic GERD compl ete/Level of care ch taina) amLODIPine Take 2 Tablets 90 Tablet 2 07/28/20 Disc ontinued (NORVASC) 2.5 mg (5 mg) by mouth 2 22 (Reorder tabletIndications: once daily. (E-cancel not HTN (hypertension) s ent)) Active Problems Problem Noted Date Mood disorder 03/08/2021 Lipodermatosclerosis of both lower extremities 021 Type 2 diabetes mellitus, without long-term current us e of insulin 11/26/2020 Sensorineural hearing loss, bilateral 03/17/2020 Overview: Hearing aides Heart failure with preserved ejection fraction 020 Iron deficiency anemia 12/13/2019 Positive for macroalbuminuria 12/13/2019 RESHMA AHI- 52 FFM heated hose 09/17/2019 Hoarding disorder 08/16/2018 Adenomatous colon polyp 06/15/2018 Overview: Colonoscopy 06/2018 polyp, repeat in 5 ye ars Obsessive-compulsive disorder 09/19/2017 Gait instability 08/18/2017 Vertigo 08/18/2017 Anxiety 03/06/2014 Overview: Started on paxil 02/2014 Syncope and collapse 03/06/2014 Hyponatremia 03/06/2014 Vitamin B12 deficiency 06/04/2012 Type II or unspecified type diabetes mellitus without mention of 03/07/2008 complication, not stated as uncontrolled Unspecified essential hypertension 04/13/2007 Mixed hyperlipidemia 04/13/2007 Resolved Problems Problem Noted Date Resolved Date Compulsive behaviors 08/16/2018 12/13/2019 Compulsive behaviors 05/15/2018 06/15/2018 Lumbar radiculopathy, left 12/15/2017 05/23/2018 Shingles 12/22/2009 05/04/2011 Encounters Date Type Specialty Care Team Description 07/28/2022 Office Visit Ashutosh Gonzales Med icare ANNUAL MD (subsequent) Vi sit (76 year old); Medicatio n Management (Discuss fluvox amine) 07/28/2022 Travel 06/06/2022 Refill Ashutosh Gonzales, Ref ill Request (Amlodipine MD Besylate 2.5 ) from Last 3 Months Immunizations Name Administration Dates Next Due AMB Influenza, IIV3 (Age >=3 years)(Flu 08/25/2010 Clinic Only) COVID-19 vaccine (Ntirety 01/16/2021, 12/26/2020 30mcg/0.3mL) PF, MDV Influenza A (H1N1), Inactivated (Age >=3 10/28/2009 Years) Influenza Virus, Unspecified 07/21/2016 Influenza, IIV3 (Age >=3 years) 08/05/2009, 08/11/2008, 09/06 Influenza, Inactivated AIIV4 (Age 65+ 07/10/2020 Years) Preserv Free Influenza, Inactivated IIV3 (Age 65+ 07/21/2017 Years) Preserv Free Pneumococcal Poly,23-Valent (Pneumovax) 02/12/2014, 05/04/20 11, 08/29/1998 Pneumococcal conj 13-Valent (Prevnar 13) 10/08/2014 Td (Age >=7 Years) 04/12/2004 Tdap 08/07/2020, 09/07/2010 Zoster (Shingrix-RZV, recombinant) 03/30/2018, 01/04/2018 Zoster (Zostavax-ZVL, live) 01/23/2014, 01/23/2014 Family History Medical History Relation Name Comments Hyperlipidemia Brother Heart Disease Father Other Mother alzheimers Cancer No Family History Cancer-breast No Family History Cancer-colon No Family History Cancer-ovarian No Family History Cancer-prostate No Family History Relation Name Status Comments Brother Alive Father (Age 50) [place] Mother Alive Social History Tobacco Use Types Packs/Day Years Used Date Former Smoker 0.25 5 Quit: 11/06/19 02 Smokeless Tobacco: Never Used Tobacco Cessation: Counseling Given: Yes Alcohol Use Standard Drinks/Week Comments Yes 8.3 (1 standard drink = 0.6 oz pure alco hol dependency for long time, alcohol) now quit last week Alcohol Habits Answer Date Recorded How often do you have a drink 4 or more times a week 020 containing alcohol? How many drinks containing alcohol 1 or 2 03/26 do you have on a typical day when you are drinking? How often do you have six or more Never 2019 drinks on one occasion? Comment: alcohol dependency for long time, 2013 now quit last week 02/26/2014 Sex Assigned at Date Recorded Not on file COVID-19 Exposure Response Date Recorded In the last 10 days, have you been in contact with No / Unsu re 07/28/2022 8:27 AM CDT someone who was confirmed or suspected to have Coronavirus/COVID-19? Obstetrics History Para Term AB IAB SAB Ectopic Multiple Living Live Births 2 2 2 Date Outcome GA Total Labor/2nd/3rd Weight Sex Delivery Anes PTL Michelle A 1 A5 Name Clin Labor Para Para Last Filed Vital Signs Vital Sign Reading Time Taken Comments Blood Pressure 123/74 07/28/2022 8:36 AM CDT Pulse 78 07/28/2022 8:36 AM CDT Temperature 36.8 ??C (98.2 ??F) 02/04/2022 2:59 PM CDT Respiratory Rate 16 02/04/2022 2:59 PM CDT Oxygen Saturation 96% 07/28/2022 8:36 AM CDT Inhaled Oxygen Concentration - - Weight 91.2 kg (201 lb) 07/28/2022 8:36 AM CDT Height 159.9 cm (5' 2.95) 07/28/2022 8:36 AM CDT Body Mass Index 35.66 07/28/2022 8:36 AM CDT Plan of Treatment Upcoming Encounters Date Type Specialty Care Team Description 09/07/2022 Orders Only Lab, [place] 09/07/2022 Office Visit Ashutosh Gonzales MD [address] [facility] [employer] [facility] [place] [address] (Wo rk) 09/07/2022 Ancillary Procedure Health Maintenance Due Date Last Done Comments Influenza for age 65+ 07/07/2022 07/10/2020, 07/21/2017, 07/21/2016, Additional history exists BMI (ht and wt on same day) for 07/28/2023 07/28/2022, 05/0 12/2021, age 18+ 02/04/2022, Additional history exists Depression screening for age 12+ 07/28/2023 07/28/2022, 01/2022, 03/07/2022, Additional history exists Medicare Wellness for age 65+ 07/28/2023 07/28/2022, 2021, 07/10/2020, Additional history exists Tetanus booster 08/07/2030 08/07/2020, 09/07/2010, 04/12/2004 Pneumococcal series for age 65+ Completed 10/08/2014, 04/07/2014, 05/04/2011, Additional history exists Zoster (shingles) series for age Completed 03/30/2018, 11/2017, 50+ 01/23/2014, Additional history exists DEXA/DXA scan for age 65+ Completed 06/20/2019, 06/17/2011 Hepatitis C screening for age Completed 07/10/2020 18-79 Tdap Completed 08/07/2020, 09/07/2010 COVID-19 vaccine series Completed 07/16/2022, 02/18/2022, 08/05/2021, Additional history exists Results Not on filefrom Last 3 Months Insurance Payer Benefit Plan / Subscriber ID Effective Dates Phone Addre ss Type Group MEDICARE PART B MEDICARE PART B [id number] 2010-Present ATTN: CLAIMS - HB USE ONLY HB ONLY [address] [place] [address] MEDICARE PART A MEDICARE PART A [id number] 2010-Present ATTN: CLAIMS - HB USE ONLY HB ONLY [address] [facility] [place] [address] MEDICARE - PB MEDICARE PB [id number] 2010-Present ATT N: CLAIMS USE ONLY ONLY [address] [place] [address] PREFERRED ONE [employer] [id number] 2018-Present [address] X [id number] MARK ANTHONY GALO [phone] Advance Directives Documents on File Type Date Recorded Patient Cutting Tool Sharpener Explanati on Healthcare Directive 05/02/2013 12:00 AM ADVANCE DIRECTIVE Latest Code Status on File Code Status Date Activated Date Inactivated Comments Full Code 03/06/2014 7:28 PM 03/09/2014 5:42 PM Care Teams Medical Insurance Claims Processor Relationship Specialty Start Date End Date Ashutosh Gonzales, PCP - General Family Practice 07/21/17 [place] [address] Qiana Huntley, enroller 12/31/20 [address] [place] [address] Night Monitor Storage Worker 12/31/20 [address] [facility] [place] [address]
--- OUTSIDE RECORDS SUMMARY | 2022-08-14 22:57 | XMS_ITS | Encounter Summary ---
:1945 Author Organization [facility] Address [address] [place] [address] Care Team Providers Name Role Phone Elsewhere, Pcp Primary Care Provider Unavailable Encounter Details Date Type Department Care Team Description 06/28/2022 Ancillary Procedure Department of Dermatology Social History Tobacco Use Types Packs/Day Years Used Date Smoking Tobacco: Unknown Smokeless Tobacco: Never Sex Assigned at Date Recorded Not on file documented as of this encounter Plan of Treatment Upcoming Encounters Date Type Specialty Care Team Description 09/27/2022 Office Visit Dermatology Marianela Braden M.D. [address] [place], [place] [phone] (Wo rk) documented as of this encounter Procedures Procedure Name Priority Date/Time Associated Comments Diagnosis DERMATOLOGY IMAGE Routine 06/28/2022 10:25 Result s for this EXAM AM CDT procedure are i n the results section. 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
--- OUTSIDE RECORDS SUMMARY | 2022-08-14 22:57 | XMS_ITS | Encounter Summary ---
:1945 Author Organization [facility] Address [address] [place] [address] Care Team Providers Name Role Phone Elsewhere, Pcp Primary Care Provider Unavailable Encounter Details Date Type Department Care Team Description 06/06/2022 Ancillary Procedure Department of Dermatology Social History Tobacco Use Types Packs/Day Years Used Date Smoking Tobacco: Unknown Smokeless Tobacco: Never Sex Assigned at Date Recorded Not on file documented as of this encounter Plan of Treatment Upcoming Encounters Date Type Specialty Care Team Description 09/27/2022 Office Visit Dermatology Marianela Braden M.D. [address] [place], [place] [phone] (Wo rk) documented as of this encounter Procedures Procedure Name Priority Date/Time Associated Comments Diagnosis DERMATOLOGY IMAGE Routine 06/06/2022 12:07 Result s for this EXAM PM CDT procedure are i n the results section. 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
--- OUTSIDE RECORDS SUMMARY | 2022-08-14 22:57 | XMS_ITS | Encounter Summary ---
:1945 Author Organization [facility] Address [address] [place] [address] Care Team Providers Name Role Phone Elsewhere, Pcp Primary Care Provider Unavailable Encounter Details Date Type Department Care Team Description 02/15/2021 Clinical Communication Department of Marianela Braden, Dermatology in [place], [place] [address] [facility] [address] [place] [phone] Social History Tobacco Use Types Packs/Day Years Used Date Smoking Tobacco: Unknown Smokeless Tobacco: Never Sex Assigned at Date Recorded Not on file documented as of this encounter Miscellaneous Notes Telephone Encounter - Alysa Hernández R.N. - 02/22/2021 8:47 AM CDT Visit note printed and mailed to patient. Telephone Encounter - Leanna Chu - 02/15/2021 1:26 PM CDT Reason for Communication: Patient was in today to see Dr. Braden. She's requesting her Clinic notesto be emailed or mailed to her. She does not use the Patient Portal. Current Can Nursing/Provider leave a detailed message?: yes Did the patient refuse triage through Nurse line? (for symptom based concerns): na Action Needed: Please mail or email Clinic notes to Name of Medication (if relevant): documented in this encounter Plan of Treatment Upcoming Encounters Date Type Specialty Care Team Description 09/27/2022 Office Visit Dermatology Marianela Braden M.D. [address] [place], [place] [phone] (Wo rk) documented as of this encounter Visit Diagnoses Not on filedocumented in this encounter Additional Health Concerns Assessment Noted Time PHQ-9 Depression Total Score: 1 12/02/2015 8:50 AM ORCHID HAND documented as of this encounter Care Teams Direct Sales Representative Relationship Specialty Start Date End Date Elsewhere, Pcp PCP - General Family Medicine 01/30/19 documented as of this encounter
--- OUTSIDE RECORDS SUMMARY | 2022-08-14 22:57 | XMS_ITS | Encounter Summary ---
:1945 Author Organization [facility] Address [address] [place] [address] Care Team Providers Name Role Phone Elsewhere, Pcp Primary Care Provider Unavailable Reason for Referral Outpatient (Routine) - Closed Specialty Diagnoses / Procedures Referred By Contact Refer red To Contact Dermatology Diagnoses Tumor Skin Uncertain Behavior Marianela Braden M.D. [facility] Region Procedures Dermatology misc minor procedure [address] [place] [address] Referral ID Status Reason Start Date Expiration Date Visits Requ ested Visits Authorized [id number] Closed 06/06/2022 06/06/2023 1 1 Reason for Visit Reason Comments Follow-up Encounter Details Date Type Department Care Team Description 06/06/2022 Office Visit Department of Marianela Braden, Tumor Skin Uncertain Behavior (Primary Dx); Dermatology in [facility]; [place], [place] [address] [facility]; [address] [place] [address] [place] [phone] Social History Tobacco Use Types Packs/Day Years Used Date Smoking Tobacco: Unknown Smokeless Tobacco: Never Sex Assigned at Date Recorded Not on file documented as of this encounter Progress Notes Marianela Braden M.D. - 06/06/2022 11:15 AM CDT SUBJECTIVE CHIEF COMPLAINT / REASON FOR VISIT Full skin cancer screening HISTORY OF PRESENT ILLNESS Jessica Meek is a pleasant 76 y.o. female who presents for a full skin cancer screening. The patient was last seen by me in Dermatology clinic on 09/13/21. She has a history of basal cell carcinoma involving the right lutheran, status post Mohs surgery in 2013 done elsewhere. She denies a personal history for melanoma. Her brother has had melanoma. She uses sunscreen. She denies any new or changing lesions today. MEDICAL HISTORY 1. Right lutheran: History of basal cell carcinoma, status post [...] injection or icterus. No eyelid abnormalities. Lymph: No lower extremity edema. Skin: I have examined the scalp, face, neck, chest, abdomen, back, bilateral upper extremities, and bilateral lower extremities. My scribe (Zofia) served as a farmworkers for the entirety of the exam. Examination of the right lutheran reveals no evidence for recurrence of basal cell carcinoma. Examination of the right upper eyelid reveals an actinic keratosis. Examination of the face, trunk and extremities reveals multiple benign-appearing nevi, lentigines and seborrheic keratoses. Examination of the nose reveals some telangiectasia but no underlying lesion. Examination of the left medial calf reveals a 2 x 1.4 cm scaly plaque, possible representing a seborrheic keratosis vs lichenoid keratosis, rule out squamous cell carcinoma. (previous biopsy years ago shoulder verrucal keratosis but does not look like a VK currently) Examination of the right medial calf reveals a 2 x 1 cm similar slightly erythematous scaly plaque, potentially representing a seborrheic keratosis vs lichenoid keratosis, rule out squamous cell carcinoma. ASSESSMENT / PLAN #1 Right upper eyelid: Actinic keratosis x 1 Given the precancerous nature of this lesion(s), treatment is medically indicated. After discussion of the risks, benefits and alternatives to treatment with cryotherapy, informed consent was obtained.We treated a total of one lesion(s) with two 5-second freeze-thaw cycles of liquid nitrogen cryotherapy. The patient tolerated the procedure well. Aftercare instructions were provided in written and verbal form to the patient. Should any of these lesions recur, the patient should return for biopsy or further evaluation. Follow up in 1-2 months for recheck if these areas do not complete resolve. #2 Left medial calf and right medial calf: Possible seborrheic keratosis vs lichenoid keratosis, rule out squamous cell carcinoma I discussed with the patient that given some characteristics of these lesions I would prefer to remove them. I discussed with the patient that she will have two small open wounds that she should keep clean and dry. I discussed with her that these areas may take longer to heal given the location on thelower legs and her history of type II diabetes. She understands and is in agreement with this plan. Follow up on 06/28/22 for removal of the stated lesion(s). #3 Face, trunk and extremities: Multiple nevi and lentigines The ABCDE criteria for melanoma was reviewed with the patient. None of the patient's nevi reach the clinical threshold for biopsy. I recommend continued sun protection, self-skin examinations, and observation. Should any of the patient's nevi change in size, color, texture, or shape or develop symptoms such as itching or bleeding, I recommend an immediate return visit for reassessment. #4 Face, trunk and extremities: Seborrheic keratosis The benign nature of the skin lesion(s) was discussed with the patient. No treatment is required. I recommend continued observation. Should this lesion change in size, color, texture, or shape or develop symptoms such as itching or bleeding, I recommend an immediate return visit for reassessment. #5 Right lutheran: History of basal cell carcinoma, status post Mohs surgery in 2013 done elsewhere No clinical evidence of local recurrence today. Recommended monthly self-skin examinations to evaluate for new, changing, symptomatic, or otherwise worrisome lesions. Signs and symptoms of skin cancer discussed. Photoprotection was recommended. Return to Dermatology in 12 months for a full skin exam or immediately if any new or changing lesions [...] Marianela Braden M.D. Electronically Signed: nay Power. 06/06/2022. 12:01 PM CDT. I, Marianela Braden M.D., personally performed the services described in this documentation. All medical record entries made by the scribe were at my direction and in my presence. I have reviewed the chart and discharge instructions (if applicable) and agree that the record reflects my personal performance and is accurate and complete. Marianela Braden M.D. documented in this encounter Plan of Treatment Upcoming Encounters Date Type Specialty Care Team Description 09/27/2022 Office Visit Dermatology Marianela Braden M.D. [address] [place], [place] [phone] (Wo rk) Scheduled Orders Name Type Priority Associated Diagnoses Order S chedule Dermatology misc minor Dermatology Routine Tumor Skin Uncerta in Expected: procedure Behavior 06/28/2022, Expires: 2022 documented as of this encounter Visit Diagnoses Diagnosis Tumor Skin Uncertain Behavior - Primary Keratosis [facility] Multiple Keratosis Seborrheic documented in this encounter Additional Health Concerns Assessment Noted Time PHQ-9 Depression Total Score: 1 12/02/2015 8:50 AM IT SUPPORT SPECIALIST documented as of this encounter Care Teams Coating Manager Relationship Specialty Start Date End Date Elsewhere, Pcp PCP - General Family Medicine 01/30/19 documented as of this encounter
--- OUTSIDE RECORDS SUMMARY | 2022-08-14 22:57 | XMS_ITS | Encounter Summary ---
:1945 Author Organization [facility] Address [address] [place] [address] Care Team Providers Name Role Phone Elsewhere, [...] Visit Dermatology Marianela Braden M.D. [address] [place], [place] [phone] (Wo rk) documented as of this encounter Procedures Procedure Name Priority Date/Time Associated Comments Diagnosis DERMATOLOGY IMAGE Routine 06/28/2022 10:26 Result s for this EXAM AM CDT procedure are i n the results section. documented in this encounter Results lower extremity, left calf 413-Dermatology Image Exam (06/28/2022 10:26 AM CDT) Specimen (Source) Anatomical Collection Method [...] Depression Total Score: 1 12/02/2015 8:50 AM CUSTOMER OPERATIONS INTERN documented as of this encounter Care Teams Window Dresser Relationship Specialty Start Date End Date Elsewhere, Pcp PCP - General Family Medicine 01/30/19 documented as of this encounter
--- OUTSIDE RECORDS SUMMARY | 2022-08-14 22:57 | XMS_ITS | Encounter Summary ---
:1945 Author Organization [facility] Address [address] [place] [address] Care Team Providers Name Role Phone Elsewhere, Pcp Primary Care Provider Unavailable Encounter Details Date Type Department Care Team Description 05/04/2020 Ancillary Procedure Department of Dermatology Social History Tobacco Use Types Packs/Day Years Used Date Smoking Tobacco: Unknown Smokeless Tobacco: Never Sex Assigned at Date Recorded Not on file documented as of this encounter Plan of Treatment Upcoming Encounters Date Type Specialty Care Team Description 09/27/2022 Office Visit Dermatology Marianeal Braden M.D. [address] [place], [place] [phone] (Wo rk) documented as of this encounter Procedures Procedure Name Priority Date/Time Associated Comments Diagnosis DERMATOLOGY IMAGE Routine 05/04/2020 11:25 Result s for this EXAM AM CDT procedure are i n the results section. documented in this encounter Results lower extremity, left calf 413-Dermatology Image Exam (05/04/2020 11:25 AM CDT) Specimen (Source) Anatomical Collection Method Collection Time Re ceived Time Location / / Volume Laterality 05/04/2020 11:22 AM CDT Narrative [facility] - 05/04/2020 11:26 AM CDT This order has been created [...] Depression Total Score: 1 12/02/2015 8:50 AM E COMMERCE SPECIALIST documented as of this encounter Care Teams Scaffold Worker Relationship Specialty Start Date End Date Elsewhere, Pcp PCP - General Family Medicine 01/30/19 documented as of this encounter
--- OUTSIDE RECORDS SUMMARY | 2022-08-14 22:57 | XMS_ITS | Encounter Summary ---
:1945 Author Organization [facility] Address [address] [place] [address] Care Team Providers Name Role Phone Elsewhere, [...] Visit Dermatology Marianela Braden M.D. [address] [place], [place] [phone] (Wo rk) documented as of this encounter Procedures Procedure Name Priority Date/Time Associated Comments Diagnosis DERMATOLOGY IMAGE Routine 06/06/2022 12:07 Result s for this EXAM PM CDT procedure are i n the results section. documented in this encounter Results lower extremity, right calf 412-Dermatology Image Exam (06/06/2022 12:07 PM CDT) Specimen [...] Depression Total Score: 1 12/02/2015 8:50 AM [employer] documented as of this encounter Care Teams Tax Services Professional Relationship Specialty Start Date End Date Elsewhere, Pcp PCP - General Family Medicine 01/30/19 documented as of this encounter
--- OUTSIDE RECORDS SUMMARY | 2022-08-14 22:58 | XMS_ITS | Encounter Summary ---
:1945 Author Organization [facility] Address [address] [place] [address] Care Team Providers Name Role Phone Brandin Kruger M.D. Primary Care Provider Encounter Details Date Type Department Care Team Description 08/09/2017 Hospital Encounter HX [facility] INTERNMED Jairo Kruger M.D. [address] [place] [address]21 (Wo rk) Social History Tobacco Use Types Packs/Day Years Used Date Smoking Tobacco: Former Sex Assigned at Date Recorded Not on file documented as of this encounter Last Filed Vital Signs Vital Sign Reading [...] Mass Index 38.61 08/09/2017 3:40 PM CDT documented in this encounter Medications at Time of Discharge Medication Sig Dispensed Refills Start Date End Date aspirin [address] tablet Take 1 tablet by 0 2013 mouth daily. atorvastatin (LIPITOR) 40 Take 1 tablet by 0 0 04/2017 mg tablet mouth at bedtime. naproxen sodium Take 1 tablet by 0 07/07/2017 (ALEVE/ANAPROX) 220 mg mouth daily as tablet needed omeprazole (PriLOSEC) 20 Take 1 tablet by 0 08/09 mg capsule mouth daily. vit Take 1 capsule by 0 12/02/2015 C/E/Zn/coppr/lutein/zeaxa mouth 2 (two) times n (PRESERVISION AREDS-2 a day. ORAL) atenolol (TENORMIN) 50 mg Take 1 tablet by 0 /04/201706/28/2022 tablet mouth daily. glipiZIDE (GLUCOTROL) 5 Take 1 tablet by 0 201607/29/2019 mg tablet mouth daily. documented as of this encounter Progress Notes Brandin Kruger M.D. - 08/09/2017 3:12 PM CDT [id number] CHIEF COMPLAINT/REASON FOR VISIT Obsessive-compulsive disorder out of control. This patient was diagnosed with obsessive-compulsive disorder, had gradually been withdrawn from allher psychotropic medicines and the is here with her today saying that was a mistake and thatshe is out of control over purchasing and hardly manageable. I am not surprised. The is withher and the patient herself is somewhat denying these things but she admits that her behavior has changed. She had been on a number of psychotropics in the past. She had been on Paxil, she had been on Exelon, she had been on Depakote, and the most recently withdrawn was Depakote and so I think it is important to get her back on Depakote that was specifically for obsessive-compulsive disorder. It turns out she has an appointment with psychiatry in a week in [place] and they can go further into what medicines should be started or changed. There is a question of whether she should see Neurology andwe had a long talk about this and at the moment I do not see any point to see Neurology. Psychiatry is the important person to see and they have that appointment made. MEDICATIONS Per EMR. ALLERGIES Per EMR. SYSTEMS REVIEW A complete review of systems is obtained, is negative except as mentioned above. PAST MEDICAL/SURGICAL HISTORY 1. Significant for obsessive-compulsive disturbance. 2. Alcoholism, currently dry. 3. Distal type 4 RTA. 4. Type 2 diabetes. 5. Mixed dyslipidemia. 6. Hypertension. 7. Hyponatremia. FAMILY HISTORY/SOCIAL HISTORY She is . Her is with her. She does not smoke and she has quit drinking. PHYSICAL EXAMINATION VITAL SIGNS: Temperature is 36.3, heart rate 80, respiratory rate 16, blood pressure 138/58, and BMI38.61. HEENT: Eyes: Conjunctivae and lids normal. Pupils equal, round, reactive to light and accommodation.Extraocular movements normal. Sclerae nonicteric. Ophthalmologic exam grossly normal. ENT: Tympanic membranes look okay bilaterally. Nares without erythema or congestion. Mouth without erythema or exudate, no leuko or erythroplakia. NECK: Supple, no adenopathy or thyromegaly. Carotid upstrokes plus 2 bilaterally, no bruits. CHEST: Lung beebe clear to auscultation and percussion with normal respiratory rate and effort. CARDIAC: Central venous pressure is normal at 7 to 8 cm of water or less; there is a normal systoliccollapse of the jugular venous pulse; there is not a positive hepatojugular reflex. Heart tones are in sinus rhythm; S1 and S2 normal, physiologic splitting of the second heart tone, no third or fourthsound, no significant murmur, no gallop. NEUROLOGICAL: She is alert, oriented and grossly nonfocal. IMPRESSION/REPORT/PLAN She has obsessive-compulsive disturbance and needs to go back on Depakote. We put her on Depakote ER500 in the morning and 1000 mg at bedtime which was her previous dose. She has psychiatry scheduled already for a week. We are going to hold on any neurologic appointments because I think her problem is predominantly psychiatric. The time component today was 25 minutes, 20 minutes of it counseling on obsessive compulsive disorder and medication changes. Brandin Kruger M.D./cipriano Electronically Signed By: BRANDIN KRUGER MD On: 08/10/2017 06:52 AM Source: [facility] MHSDOLBEYNONRADSYS Document Id: [id number] documented in this encounter Miscellaneous Notes Miscellaneous - Brandin Kruger M.D. - 08/09/2017 4:29 PM CDT Ambulatory Patient Summary [address], [place] [id number] Visit Information Name: FRANCES HAGER [facility] Number: [id number] Current Date: 08/09/2017 16:29:15 Physicians Attending Provider: BRANDIN KRUGER MD Primary Care Provider: BRANDIN KRUGER MD FRANCES HAGER has been given the following list of follow-up instructions, medication list, and patient education materials: Follow-up Instructions Your Medications Here is a list of your medications. It is important to take your medications as directed. Use a pillbox or chart to help remind you to take your medications. Please let your doctor or nurse know if you have problems taking your medications. Medication/Strength How to Take Indications/Special Instructions/Comments/Notes for Patient Medication Changes/Routing aspirin (Aspir 81 oral delayed release tablet) 1 Tablet(s), Oral, once a day atenolol (atenolol 50 mg oral tablet) 1 Tablet(s), Oral, once a day atorvastatin (Lipitor 40 mg oral tablet) 1 Tablet(s), Oral, once a day (at bedtime) cetirizine (All Day Allergy) 10 mg, Oral, once a day cyanocobalamin (Vitamin B12 1000 mcg oral tablet) 1 Tablet(s), Oral, 3 times a week divalproex sodium (Depakote ER 500 mg oral tablet, extended release) See Instructions 1 in am and 2 at bedtime New Routed to [address] [address] glipiZIDE (glipiZIDE 5 mg oral tablet) See Instructions 1/2 tab in the am and 1 tab in the pm lisinopril (lisinopril 40 mg oral tablet) 1 Tablet(s), Oral, once a day metFORMIN (metFORMIN 1000 mg oral tablet, extended release) 1 Tablet(s), Oral, two times a day multivitamin with minerals (PreserVision AREDS 2 oral capsule) 1 cap, Oral, once a day omeprazole (omeprazole 20 mg oral delayed release tablet) 1 Tablet(s), Oral, once a day torsemide (torsemide 5 mg oral tablet) 1 Tablet(s), Oral, once a day Stop Taking the Following Medications: Medication list as of 08-09-17 16:29 Attention: If you have any medications at home that are not on this list, DO NOT take them until youcontact your provider for clarification. Give a copy of your medication list to your primary care provider. Update your medication list any time medications or doses are changed and carry your medication list at all times in case of emergency. Electronically Signed By: BRANDIN KRUGER MD Signed On:09-AUG-2017 16:28:31 Your Allergies & Intolerances Substance Reaction Symptoms Category Comments No Known Allergies Your Problem List Problem Status Onset Comments Combined hyperlipidemia Active 04/11/2013 HTN [Hypertension] Active 04/11/2013 DM II (or NOS), controlled Active 04/11/2013 Alcoholism Pers Hx Active Disorder Obsessive Compulsive Personality (OCPD) Active Acidosis Renal Tubular Distal Active Fatigue NOS Active Mixed hyperlipidemia Active Hyponatremia Active Allergy Seasonal Active Your Upcoming Appointments Date Time Location Provider No Appointments found Attention: Contact your local Clinic if further appointment detail needed. Consider Using Patient Online Services Patient Online Services is a secure online and Mobile application that lets you: ?? View lab and test results ?? View portions of your medical record including clinical notes, immunizations and discharge summaries ?? Request an appointment or medication refill ?? Review your appointment schedule ?? Send secure messages to your care team Its easy to create an account if you dont have one. Go to [email or web address] and click on Create Your Account. Then, follow the directions to complete the online form. Youll be asked for your [facility] number which you can find at the top of this document. Your Goals/Additional instructions: Source: [facility] POWERCHART Document Id: [id number] Miscellaneous - Brandin Kruger M.D. - 08/09/2017 4:29 PM CDT Ambulatory Discharge Medication List [address] [id number] Visit Information Name: FRANCES HAGER [facility] Number: [id number] Current Date: 08/09/2017 16:29:15 Attending Provider: BRANDIN KRUGER MD Primary Care Provider: BRANDIN KRUGER MD FRANCES HAGER has been given the following list of medications: Your Medications It is important to take your medications as directed. Use a pill box or chart to help remind you to take your medications. Please let your doctor or nurse know if you have problems taking your medications. Medication/Strength How to Take Indications/Special Instructions/Comments/Notes for Patient Medication Changes/Routing aspirin (Aspir 81 oral delayed release tablet) 1 Tablet(s), Oral, once a day atenolol (atenolol 50 mg oral tablet) 1 Tablet(s), Oral, once a day atorvastatin (Lipitor 40 mg oral tablet) 1 Tablet(s), Oral, once a day (at bedtime) cetirizine (All Day Allergy) 10 mg, Oral, once a day cyanocobalamin (Vitamin B12 1000 mcg oral tablet) 1 Tablet(s), Oral, 3 times a week divalproex sodium (Depakote ER 500 mg oral tablet, extended release) See Instructions 1 in am and 2 at bedtime New Routed to [address] [id number] glipiZIDE (glipiZIDE 5 mg oral tablet) See Instructions 1/2 tab in the am and 1 tab in the pm lisinopril (lisinopril 40 mg oral tablet) 1 Tablet(s), Oral, once a day metFORMIN (metFORMIN 1000 mg oral tablet, extended release) 1 Tablet(s), Oral, two times a day multivitamin with minerals (PreserVision AREDS 2 oral capsule) 1 cap, Oral, once a day omeprazole (omeprazole 20 mg oral delayed release tablet) 1 Tablet(s), Oral, once a day torsemide (torsemide 5 mg oral tablet) 1 Tablet(s), Oral, once a day Stop Taking the Following Medications: Medication list as of 08-09-17 16:29 Attention: If you have any medications at home that are not on this list, DO NOT take them until youcontact your provider for clarification. Give a copy of your medication list to your primary care provider. Update your medication list any time medications or doses are changed and carry your medication list at all times in case of emergency. Electronically Signed By: BRANDIN KRUGER MD Signed On:09-AUG-2017 16:28:31 Additional Information: Source: [facility] POWERCHART Document Id: [id number] Miscellaneous - Marisa Grullon L.P.N. 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 Referral to [facility] Daniel Temperature Core : 36.3 DegC(Converted to: 97.3 DegF) (LOW) Peripheral Pulse Rate : 80 /min Respiratory Rate : 16 /min Systolic Blood Pressure : 138 mmHg Diastolic Blood Pressure : 58 mmHg NIBP Mean : 85 mmHg BP Location : Left upper extremity Blood Pressure Cuff Size : Regular Height : 160.5 cm(Converted to: 5 ft 3 inch(es), 63 inch(es)) Actual Weight : 99.45 kg(Converted to: 219 lb 4 oz) Dosing Weight Clinic : 99.45 kg Clinic BSA : 2.11 Body Mass Index : 38.61 kg/m2 MARISA GRULLON LPN - 08/09/2017 15:40 CDT General Info Information Given By : Patient Preferred Communication Mode : Verbal, Written Languages : Swiss Is Patient Female and 13-50 no hysterectomy : No MARISA GRULLON LPN - 08/09/2017 15:40 CDT Subjective Pain Symptoms : Yes MARISA GRULLON LPN - 08/09/2017 15:40 CDT Pain Scale Pain Scale Verbal 0-10 : Open MARISA GRULLON LPN - 08/09/2017 15:40 CDT Pain Pain Assessment Grid Pain 1 Location : Lower back MARISA GRULLON LPN - 08/09/2017 15:40 CDT Dependent Habits Exposure to Tobacco Smoke : Other: former smoker Smoking Status : Former smoker Tobacco 2A : Yes Tobacco Use/Currently Using : No Tobacco Use/Last 30 Days : No Tobacco Use/Last 12 months : No MARISA GRULLON LPN - 08/09/2017 15:40 CDT Caffeine Use Grid Caffeine Use : Current Type : Coffee MARISA GRULLON IDENTIFICATION CLERK - 08/09/2017 15:40 CDT Recreational Drug Use Grid Drug Use : None MARISA GRULLON IDENTIFICATION CLERK - 08/09/2017 15:40 CDT Source: [facility] 21viaNetCHART Document Id: [id number] documented in this encounter Plan of Treatment Upcoming Encounters Date Type Specialty Care Team Description 09/27/2022 Office Visit Dermatology Marianela Braden M.D. 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 PCP - General 04/20/17 06/28/[address] [place] [id number] documented as of this encounter
--- OUTSIDE RECORDS SUMMARY | 2022-08-14 22:58 | XMS_ITS | Encounter Summary ---
:1945 Author Organization [facility] Address [address] [place] [address] Care Team Providers Name Role Phone Unavailable Primary Care Provider Unavailable Encounter Details Date Type Department Care Team Description 01/19/2017 Hospital Encounter HX [facility] Jairo Mix M.D. [address] [place] [address] 021 (Wo rk) Social History Tobacco Use Types Packs/Day Years Used Date Smoking Tobacco: Former Sex Assigned at Date Recorded Not on file documented as of this encounter Medications at Time of Discharge Medication Sig Dispensed Refills Start Date End Date aspirin [address] tablet Take 1 tablet by 0 2013 mouth daily. atorvastatin (LIPITOR) 40 Take 1 tablet by 0 0 04/2017 mg tablet mouth at bedtime. vit Take 1 capsule by 0 12/02/2015 C/E/Zn/coppr/lutein/zeaxan mouth 2 (two) times a (PRESERVISION AREDS-2 day. ORAL) documented as of this encounter Miscellaneous Notes Miscellaneous - Brandin Kruger M.D. - 01/20/2017 11:45 AM CDT Results Notification Document Contains Addenda Addendum by IRVIN SMITH LPN on January 23, 2017 11:43:17 CDT appt scheduled for results From: BRANDIN KRUGER MD To: GRZEGORZ Kruger Nurse; Sent: 01/20/2017 11:45:44 CDT ! Show up: 01/20/2017 11:45:44 CDT Subject: Results Notification Actions: Notify patient of results Reminder Comments: ok Results: Date Result Name Value Ref Range 01/19/2017 09:52 TSH, Sensitive-Scott 1.4 mIU/L (0.3-4.2 - ) Source: [facility] POWERCHART Document Id: [id number] Electronically signed by Conversion, [facility] Field Research Assistant [id number] at 04/18/2017 2:02 AM CDT Miscellaneous - Brandin Kruger M.D. - 01/19/2017 4:18 PM CDT Results Notification Document Contains Addenda Addendum by IRVIN SMITH LPN on January 23, 2017 11:42:40 CDT appt scheduled for result From: BRANDIN KRUGER MD To: GRZEGORZ Kruger Nurse; Sent: 01/19/2017 16:18:36 CDT ! Show up: 01/19/2017 16:18:36 CDT Subject: Results Notification Actions: Notify patient of results Reminder Comments: A!C and diabetes not controlled see me electively Results: Date Result Name Ind Value Ref Range 01/19/2017 09:56 U Albumin 170.9 mg/L 01/19/2017 09:56 U Creatinine (H) 297 mg/dL (29 - 226) 01/19/2017 09:56 U Alb/Creatinine Ratio (H) 58 mg/g (0 - 25) 01/19/2017 09:52 Sodium Lvl 137 mmol/L (135 - 145) 01/19/2017 09:52 Potassium Lvl 5.1 mmol/L (3.6 - 5.2) 01/19/2017 09:52 Chloride (L) 97 mmol/L (98 - 107) 01/19/2017 09:52 CO2 29 mmol/L (22 - 29) 01/19/2017 09:52 AGAP 11 mmol/L (7 - 15) 01/19/2017 09:52 Glucose Lvl (H) 195 mg/dL (70 - 139) 01/19/2017 09:52 Creatinine 0.91 mg/dL (0.60 - 1.10) 01/19/2017 09:52 EGFR (MDRD) >60 mL/min/1.73m2 (>=60 - ) 01/19/2017 09:52 EGFR (MDRD) >60 mL/min/1.73m2 (>=60 - ) 01/19/2017 09:52 BUN (H) 24 mg/dL (6 - 21) 01/19/2017 09:52 Calcium Lvl 9.9 mg/dL (8.8 - 10.3) 01/19/2017 09:52 Cholesterol 172 mg/dL ( - <=199) 01/19/2017 09:52 Trig (H) 277 mg/dL ( - <=149) 01/19/2017 09:52 HDL 52 mg/dL (>=50 - ) 01/19/2017 09:52 LDL Calculated 65 mg/dL ( - <=129) 01/19/2017 09:52 Chol/HDL Ratio 3.00 01/19/2017 09:52 LDL/HDL 1 01/19/2017 09:52 Hgb A1c (H) 8.4 % A1C ( - <=5.6) Source: [facility] POWERCHART Document Id: [id number] Electronically signed by Conversion, [facility] Field Research Assistant [id number] at 04/18/2017 2:02 AM CDT documented in this encounter Plan of Treatment Upcoming Encounters Date Type Specialty Care Team Description 09/27/2022 Office Visit Dermatology Marianela Braden M.D. [address] [place], [place] [phone] (Wo rk) documented as of this encounter Procedures Procedure Name Priority Date/Time Associated Comments Diagnosis ALBUMIN, RANDOM, U Routine 01/19/2017 9:56 AM Res ults for this CDT procedure are i n the results section. LIPID PANEL, S Routine 01/19/2017 9:52 AM Results for this CDT procedure are i n the results section. THYROID FUNCTION Routine 01/19/2017 9:52 AM Resul ts for this CASCADE, S CDT procedure are i n the results section. HEMOGLOBIN A1C, B Routine 01/19/2017 9:52 AM Resu lts for this CDT procedure are i n the results section. BASIC METABOLIC Routine 01/19/2017 9:52 AM Result s for this PANEL, S/P CDT procedure are i n the results section. documented in this encounter Results (ABNORMAL) Microalbumin, Random, Urine (01/19/2017 9:56 AM CDT) P athologist Signature Creatinine, 297 (H) 29 - 226 POWERCHART Random, U MGDL HXU Albumin % 170.9 MGL POWERCHART Albumin/Creati 58 (H) 0 - 25 MGG POWERCHART nine Ratio Specimen (Source) Anatomical Collection Method Collection Time Re ceived Time Location / / Volume Laterality Urine 01/19/2017 9:56 AM CDT Brandin Kruger M.D. LAB URINE ORDERABLES Performing Organization Address City/[facility]/ZIP Code Phon e Number POWERCHART Thyroid Function [place] (01/19/2017 9:52 AM CDT) athologist Signature TSH, Sensitive 1.4 0.3 - 4.2 POWERCHART MIUL Comment: Test Performed by: [address] [id number] Specimen (Source) Anatomical Collection Method Collection Time Re ceived Time Location / / Volume Laterality Blood 01/19/2017 9:52 AM CDT Brandin Kruger M.D. LAB BLOOD ADD-ON Performing Organization Address City/[facility] Code Phon e Number POWERCHART (ABNORMAL) Lipid Panel (01/19/2017 9:52 AM CDT) P athologist Signature Cholesterol, 172 <=199 MGDL POWERCHART Total Comment: 2013 National Lipid Association recommen dations for Total Cholesterol in adults ages 18 and up: Desirable <200 mg/dL Borderline high 200-239 mg/dL High 240 mg/dL 2014 National Lipid Association recommen dations for Total Cholesterol in children ages 2 to 17. Acceptable <170 mg/dL Borderline High 170-199 mg/dL High 200 mg/dL HX HDL 52 >=50 MGDL POWERCHART Comment: 2014 National Lipid Association recommen dations for HDL-C in adults ages 18 and up: Low <40 mg/dL (Men) Low <50 mg/dL (Women) 2014 National Lipid Association recommen dations for HDL-C in children ages 2 to 17. Low <40 mg/dL Borderline Low 40-45 mg/dL Acceptable >45 mg/dL Triglycerides 277 (H) <=149 MGDL POWERCHART Comment: 2014 National Lipid Association recommen dations for Triglycerides in adults ages 18 and up: Normal <150 mg/dL Borderline High 150-199 mg/dL High 200-499 mg/dL Very High 500 mg/dL 2014 National Lipid Association recommen dations for Triglycerides in children ages 2 to 9. Acceptable <75 mg/dL Borderline High 75-99 mg/dL High 100 mg/dL 2014 National Lipid Association recommen dations for Triglycerides in children ages 10 to 17. Acceptable <90 mg/dL Borderline High 90-129 mg/dL High 130 mg/dL Trigs >400mg/dL: Triglycerides >400 mg/ dL. Calculated LDL cholesterol is not valid. Non-HDL cholesterol may be used for risk assessment when triglycerides are >400mg/dL. Calculated LDL 65 <=129 MGDL POWERCHART Comment: 2013 National Lipid Association recommen dations for LDL-C in adults ages 18 and up: Desirable <100 mg/dL Above desirable 100-129 mg/dL Borderline high 130-159 mg/dL High 160-189 mg/dL Very High 190 mg/dL 2014 National Lipid Association recommen dations for LDL-C in children ages 2 to 17. Acceptable <110 mg/dL Borderline High 110-129mg/dL High 130 mg/dL LDL-C >190mg/dL: The markedly elevated LDL level is suggestive of a genetic condition such as familial hypercholesterolemia(FH) or familial defective apolipoprotein B-100 (FDB). Molecular genetic t esting for FH and FDB is available throu [facility]: FH/ADH Genetic Reflex [place] el (test ADHP). Acquired (non-genetic) causes of markedly increased LDL cholesterol include cholestatic liver disease due to the presence of LpX. If a genetic form of hypercholesterolemia is suspected, family studies including biochemical testing fo r lipids (total cholesterol,triglycerides, LDL cholesterol and HDL cholesterol) are recommended. ??Please contact the laboratory at or the on-line test catalog at [employer] for information about how to order these poly ts or to speak with a genetic counselor. Further interpretation would require clinical information. Total Cholesterol/HDL Ratio 3.00 PO WERCHART HXLDL/HDL 1 POWERCHART Specimen (Source) Anatomical Collection Method Collection Time Re ceived Time Location / / Volume Laterality Blood 01/19/2017 9:52 AM CDT Brandin Kruger M.D. LAB BLOOD ADD-ON Performing Organization Address City/State/ZIP Code Phon e Number POWERCHART (ABNORMAL) Hemoglobin A1c (01/19/2017 9:52 AM CDT) P athologist Signature Hemoglobin A1c, 8.4 (H) <=5.6 A1C POWERCHART B Specimen (Source) Anatomical Collection Method Collection Time Re ceived Time Location / / Volume Laterality Blood 01/19/2017 9:52 AM CDT Brandin Kruger M.D. LAB BLOOD ADD-ON Performing Organization Address City/[facility] Phon e Number POWERCHART (ABNORMAL) BMP (Basic Metabolic Panel) (01/19/2017 9:52 AM CDT) P athologist Signature Sodium, S 137 135 - 145 POWERCHART MMOLL Potassium, S 5.1 3.6 - 5.2 POWERCHART MMOLL Chloride, S 97 (L) 98 - 107 POWERCHART MMOLL CO2 Total 29 22 - 29 POWERCHART MMOLL Comment: Reference ranges have not been established for patients that are <12 months of age. BUN (Blood Urea Nitrogen), S 24 (H) 6 - 21 MGDL POWERCHART Creatinine 0.91 0.60 - 1.10 MGDL POWERCHART Calcium, Total, S 9.9 8.8 - 10.3 MGDL POWERC [place] Anion Gap 11 7 - 15 MMOLL POWERCHART HXeGFR (MDRD) >60 >=60 [id number] POWERCHART eGFR Black/ >60 >=60 [id number] POWERCHART Glucose 195 (H) 70 - 139 MGDL POWERCHART Specimen (Source) Anatomical Collection Method Collection Time Re ceived Time Location / / Volume Laterality Blood 01/19/2017 9:52 AM CDT Brandin Kruger M.D. 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
--- OUTSIDE RECORDS SUMMARY | 2022-08-14 22:58 | XMS_ITS | Encounter Summary ---
:[address] [facility] Address [address] [place] [address] Care Team Providers Name Role Phone Naren Kruger M.D. Primary Care Provider Encounter Details Date Type Department Care Team Description 06/28/2017 Hospital Encounter HX [facility] Jairo Kruger M.D. [address] [place] [phone] (Wo yajaira) Social History Tobacco Use Types Packs/Day Years Used Date Smoking Tobacco: Former Sex Assigned at Date Recorded Not on file documented as of this encounter Medications at Time of Discharge Medication Sig Dispensed Refills Start Date End Date aspirin [address] tablet Take 1 tablet by 0 2013 mouth daily. atorvastatin (LIPITOR) 40 Take 1 tablet by 0 03/0 04/2017 mg tablet mouth at bedtime. vit Take 1 capsule by 0 12/02/2015 C/E/Zn/coppr/lutein/zeaxa mouth 2 (two) times n (PRESERVISION AREDS-2 a day. ORAL) atenolol (TENORMIN) 50 mg Take 1 tablet by 0 05/2 04/201706/28/2022 tablet mouth daily. glipiZIDE (GLUCOTROL) 5 Take 1 tablet by 0 201607/29/2019 mg tablet mouth daily. documented as of this encounter Plan of Treatment Upcoming Encounters Date Type Specialty Care Team Description 09/27/2022 Office Visit Dermatology Marianela Braden M.D. 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 PCP - General 04/20/17 06/28/[address] [place] [phone] documented as of this encounter
--- OUTSIDE RECORDS SUMMARY | 2022-08-14 22:58 | XMS_ITS | Encounter Summary ---
:1945 Author Organization [facility] Address [address] [place] [address] Care Team Providers Name Role Phone Unavailable Primary Care Provider Unavailable Encounter Details Date Type Department Care Team Description 12/08/2016 Hospital Encounter HX [facility] INTERNMED Jairo Kruger M.D. [address] [place] [address] 021 (Wo rk) Social History Tobacco Use Types Packs/Day Years Used Date Smoking Tobacco: Former Sex Assigned at Date Recorded Not on file documented as of this encounter Last Filed Vital Signs Vital Sign Reading Time Taken Comments Blood Pressure 167/60 12/08/2016 10:21 AM BIOLOGY INTERN Pulse 68 12/08/2016 10:20 AM BIOLOGY INTERN Temperature - - Respiratory Rate 20 12/08/2016 10:20 AM BIOLOGY INTERN Oxygen Saturation - - Inhaled Oxygen Concentration - - Weight 101 kg (223 lb 7 oz) 12/08/2016 10:20 AM BIOLOGY INTERN Height - - Body Mass Index 40.09 12/02/2015 8:50 AM BIOLOGY INTERN documented in this encounter Medications at Time of Discharge Medication Sig Dispensed Refills Start Date End Date aspirin [address] tablet Take 1 tablet by mouth 0 03/14/2014 daily. vit Take 1 capsule by 0 12/02/2015 C/E/Zn/coppr/lutein/zeaxa mouth 2 (two) times a n (PRESERVISION AREDS-2 day. ORAL) documented as of this encounter Progress Notes Brandin Kruger M.D. - 12/08/2016 10:00 AM CST [id number] CHIEF COMPLAINT/REASON FOR VISIT Medication question. The patient wonders if she could come off Depakote and I think probably she can. Her obsessive-compulsive disorder has stopped since she quit drinking and I would like to get her off the medicine actually, I do not think it has to be tapered, she can just discontinue it. Her blood pressure is high today and I do not know what that is about. She has not had high blood pressures before. She does not check them regularly at home so it is difficult to say. However we could make minor change in one of her medicines, keeping things fairly simple and probably bring the blood pressure down. A 3rd pill in ablood pressure group should always be a water pill so I will change her atenolol from straight atenol ol 50 mg a day to atenolol chlorthalidone 50/25 once a day, combined with her lisinopril I think that will be nicely effective to lower her blood pressure. Another issue consists of her diabetes. Her a.m. sugar is generally above 125, this morning was 201.She wonders what can be done about that. Well beyond exercise and watching diet one can increase themetformin, she is at 1000 mg of extended release once a day and we could go to 2 times a day with that and that is what she is suggesting, and that would be 2000 mg of metformin and probably quite effective to help bring the sugars down as long as she does not get diarrhea and we did talk about that. That is the main side effect of metformin. Otherwise her medicines are somewhat simplified now. She is due for diabetic testing but not for about 6 weeks. Therefore I will schedule that towards the end of January and in 8 weeks I will see her back for recheck and will have checked the blood for her hypertension actually in 6 weeks. So if her blood pressure is under control that day and the bloods 6 weeks were okay then everything looks good for her. MEDICATIONS Per EMR. ALLERGIES Per EMR. SYSTEMS REVIEW In all areas except as mentioned above is negative. FAMILY HISTORY/SOCIAL HISTORY She is . She lives in [place] and does not use tobacco and has quit drinking. PHYSICAL EXAMINATION VITAL SIGNS: Per EMR. HEENT: Eyes: Conjunctivae and lids normal. Pupils [...] or fourthsound, no significant murmur, no gallop. IMPRESSION/REPORT/PLAN 1. Hypertension. Not well controlled, but perhaps will be as we change atenolol 50 mg a day to atenolol chlorthalidone 50/25 once a day. We remain with lisinopril at 40 mg a day. 2. Adult onset diabetes mellitus. Her sugars seem to be rising so we will go to 1000 mg extended release 2 times a day. She is scheduled for labs, having a BMP, hemoglobin A1c, lipid panel, thyroid function cascade and urine with microalbumin in 6 weeks and then I will see her in very early February. Sheis comfortable with that approach. Brandin Kruger M.D./cipriano Electronically Signed By: BRANDIN KRUGER MD On: 12/09/2016 01:10 PM Source: [facility] MHSDOLBEYNONRADSYS Document Id: [id number] OGY INTERN documented in this encounter Miscellaneous Notes Miscellaneous - Brandin Kruger M.D. - 12/08/2016 10:56 AM CST Ambulatory Patient Summary [address] [id number] Visit Information Name: FRANCES HAGER [facility] Number: [id number] Current Date: 12/08/2016 10:56:08 Physicians Attending Provider: BRANDIN KRUGER MD Primary [...] Indications/Special Instructions/Comments/Notes for Patient Medication Changes/Routing aspirin (aspirin 81 mg oral delayed release tablet) 1 Tablet(s), Oral, once a day atenolol-chlorthalidone (atenolol-chlorthalidone 50 mg-25 mg oral tablet) 1 Tablet(s), Oral, once a day New Routed to [address] [address] atorvastatin (Lipitor 40 mg oral tablet) 1 Tablet(s), Oral, once a day (at bedtime) cyanocobalamin (Vitamin B12 1000 mcg oral tablet) 1 Tablet(s), Oral, 3 times a week lisinopril (lisinopril 40 mg oral tablet) 1 Tablet(s), Oral, once a day New metFORMIN (metFORMIN 1000 mg oral tablet, extended release) 2 Tablet(s), Oral, once a day This is a CHANGE multivitamin with minerals (PreserVision AREDS 2 oral capsule) 1 cap, Oral, once a day Stop Taking the Following Medications: Medication list as of 12-08-16 10:56 Attention: If you have any medications at [...] Electronically Signed By: BRANDIN KRUGER MD Signed On:08-DEC-2016 10:54:54 Your Allergies & Intolerances Substance Reaction Symptoms Category Comments No Known Allergies Your Problem List Problem Status Onset Comments Combined hyperlipidemia Active 04/11/2013 HTN [Hypertension] Active 04/11/2013 DM II (or NOS), controlled Active 04/11/2013 Alcoholism Pers Hx Active Disorder Obsessive Compulsive Personality (OCPD) Active Acidosis Renal Tubular Distal Active Fatigue NOS Active Mixed hyperlipidemia Active Your Upcoming Appointments Date Time Location [...] if you dont have one. Go to [email or web address] and click on Create Your Account. Then, follow the directions to complete the online form. Youll be asked for your [facility] number which you can find at the top of this document. Your Goals/Additional instructions: Source: [facility] POWERCHART Document Id: [id number] OGY INTERN Miscellaneous - Brandin Kruger M.D. - 12/08/2016 10:56 AM CST Ambulatory Discharge Medication List [address] [id number] Visit Information Name: FRANCES HAGER [facility] Number: [id number] Current Date: 12/08/2016 10:56:07 Attending Provider: BRANDIN KRUGER MD Primary Care [...] Indications/Special Instructions/Comments/Notes for Patient Medication Changes/Routing aspirin (aspirin 81 mg oral delayed release tablet) 1 Tablet(s), Oral, once a day atenolol-chlorthalidone (atenolol-chlorthalidone 50 mg-25 mg oral tablet) 1 Tablet(s), Oral, once a day New Routed to [address] [address] atorvastatin (Lipitor 40 mg oral tablet) 1 Tablet(s), Oral, once a day (at bedtime) cyanocobalamin (Vitamin B12 1000 mcg oral tablet) 1 Tablet(s), Oral, 3 times a week lisinopril (lisinopril 40 mg oral tablet) 1 Tablet(s), Oral, once a day New metFORMIN (metFORMIN 1000 mg oral tablet, extended release) 2 Tablet(s), Oral, once a day This is a CHANGE multivitamin with minerals (PreserVision AREDS 2 oral capsule) 1 cap, Oral, once a day Stop Taking the Following Medications: Medication list as of 12-08-16 10:56 Attention: If you have any medications at [...] Electronically Signed By: BRANDIN KRUGER MD Signed On:08-DEC-2016 10:54:54 Additional Information: Source: [facility] POWERCHART Document Id: [id number] OGY INTERN Miscellaneous - Dary Wilkins L.P.NLori - 12/08/2016 10:24 AM CST Health Assessment Health Assessment Entered On: 12/08/2016 10:26 BIOLOGY INTERN Performed On: 12/08/2016 10:24 BIOLOGY INTERN by DARY WILKINS LPN Health Assessment Complete Health Assessment Complete or Modified : Annual Health Assessment Annual Health Assessment Completed : Yes DARY WILKINS LPN - 12/08/2016 10:24 BIOLOGY INTERN Nutrition Nutrition Risk Factors by History Adult : None DARY WILKINS LPN - 12/08/2016 10:24 BIOLOGY INTERN Functional Current Daily Living Assistance : None DARY WILKINS LPN - 12/08/2016 10:24 BIOLOGY INTERN Dependent Habits Exposure to Tobacco Smoke : Other: former smoker Smoking Status : Former smoker Tobacco 2A : Yes Tobacco Use/Currently Using : No Tobacco Use/Last 30 Days : No Tobacco Use/Last 12 months : No Alcohol Use : No DARY WILKINS LPN - 12/08/2016 10:24 BIOLOGY INTERN Caffeine Use Grid Caffeine Use : Current Type : Coffee FRANKY DARY Samson LPN - 12/08/2016 10:24 BIOLOGY INTERN Recreational Drug Use Grid Drug Use : None WILKINS, DARY Samson LPN - 12/08/2016 10:24 BIOLOGY INTERN Psychosocial Domestic Abuse Concerns : None Behavioral Health Screen/Safety Assmt : No Restorationist Preference : Oriental Orthodox WILKINSDARY LPN - 12/08/2016 10:24 BIOLOGY INTERN Advance Directive Advanced Directives : Yes Advance Directive Type : Living will Advance Directive Location : Family to bring in copy from home Advance Directive Intent Stated By : Spouse Intent of Advance Directive (In Patient's Own Words) : Either of spouses or their children WILKINS, DARY Samson LPN - 12/08/2016 10:24 BIOLOGY INTERN Educ Needs Learning Style Preference Adult Grid Patient : None Family : None WILKINSDARY LPN - 12/08/2016 10:24 BIOLOGY INTERN Source: [employer] Document Id: [id number] BIOLOGY INTERN!37 OGY INTERN Jimmie - Dary Wilkins L.P.NLori - 12/08/2016 10:21 AM CST Ambulatory Vitals Height Weight Ambulatory Vitals Height Weight Entered On: 12/08/2016 10:23 BIOLOGY INTERN Performed On: 12/08/2016 10:21 BIOLOGY INTERN by DARY WILKINS LPN Vitals/Ht/Wt Systolic Blood Pressure : 167 mmHg (>HHI) Diastolic Blood Pressure : 60 mmHg NIBP Mean : 96 mmHg BP Location : Left upper extremity Blood Pressure Cuff Size : Large DARY WILKINS LPN - 12/08/2016 10:21 BIOLOGY INTERN Source: [employer] Document Id: [id number] BIOLOGY INTERN!7 OGY INTERN Jimmie - Dary Wilkins L.P.NLori - 12/08/2016 10:20 AM CST Adult Polysomnograph Tech Intake/History Adult Polysomnograph Tech Intake/History Entered On: 12/08/2016 10:21 BIOLOGY INTERN Performed On: 12/08/2016 10:20 BIOLOGY INTERN by DARY WILKINS SUIT ATTENDANT Intake Chief Complaint : Medication check Temperature Core : 36.8 DegC(Converted to: 98.2 DegF) Peripheral Pulse Rate : 68 /min Respiratory Rate : 20 /min Systolic Blood Pressure : 180 mmHg (>HHI) Diastolic Blood Pressure : 64 mmHg NIBP Mean : 103 mmHg BP Location : Left upper extremity Blood Pressure Cuff Size : Large Actual Weight : 101.35 kg(Converted to: 223 lb 7 oz) Weight Source : Standing scale Dosing Weight Clinic : 101.35 kg DARY WILKINS LPN - 12/08/2016 10:20 BIOLOGY INTERN General Info Information Given By : Patient Preferred Communication Mode : Verbal Languages : [place] Is Patient Female and 13-50 no hysterectomy : No DARY WILKINS LPN - 12/08/2016 10:20 BIOLOGY INTERN Subjective Pain Symptoms : No DARY WILKINS LPN - 12/08/2016 10:20 BIOLOGY INTERN Dependent Habits Exposure to Tobacco Smoke : Other: former smoker Smoking Status : Former smoker Tobacco 2A : Yes Tobacco Use/Currently Using : No Tobacco Use/Last 30 Days : No Tobacco Use/Last 12 months : No DARY WILKINS LPN - 12/08/2016 10:20 BIOLOGY INTERN Caffeine Use Grid Caffeine Use : Current Type : Coffee DARY WILKINS LPN - 12/08/2016 10:20 BIOLOGY INTERN Recreational Drug Use Grid Drug Use : None DARY WILKINS LPN - 12/08/2016 10:20 BIOLOGY INTERN Source: [facility] POWERCHART Document Id: [id number] BIOLOGY INTERN!35 OGY INTERN documented in this encounter Plan of Treatment Upcoming Encounters Date Type Specialty Care Team Description 09/27/2022 Office Visit Dermatology Marianela Braden M.D. [address] [place] [address] [phone] (Wo rk) documented as of this encounter Visit Diagnoses Not on filedocumented in this encounter Additional Health Concerns Assessment Noted Time PHQ-9 Depression Total Score: 1 12/02/2015 8:50 AM BIOLOGY INTERN documented as of this encounter
--- OUTSIDE RECORDS SUMMARY | 2022-08-14 22:58 | XMS_ITS | Encounter Summary ---
:1945 Author Organization [facility] Address [address] [place] [address] Care Team Providers Name Role Phone Narne Kruger M.D. Primary Care Provider Encounter Details Date Type Department Care Team Description 10/17/2017 Orders Only Department of Naren Kruger Diabetes Me llitus Type [facility] Internal Neris Bianchi 2 (HCC) (Primary Dx) Medicine in [address] [facility] [address] [place], [place] [phone] (Work) [phone] Social History Tobacco Use Types Packs/Day Years Used Date Smoking Tobacco: Former Sex Assigned at Date Recorded Not on file documented as of this encounter Plan of Treatment Upcoming Encounters Date Type Specialty Care Team Description 09/27/2022 Office Visit Dermatology Marianela Braden M.D. 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 PCP - General 04/20/17 06/28/18 [address] [place] [address] documented as of this encounter
--- OUTSIDE RECORDS SUMMARY | 2022-08-14 22:58 | XMS_ITS | Encounter Summary ---
:1945 Author Organization [facility] Address [address] [place] [address] Care Team Providers Name Role Phone Naren Kurger M.D. Primary Care Provider Reason for Referral Outpatient (Routine) - Closed Specialty Diagnoses / Procedures Referred By Contact Refer red To Contact Neurology Naren Kruger M .D. [address] [place] [address] Referral ID Status Reason Start Date Expiration Date Visits V isits Requested Authorized [id number] Closed Specialty 09/05/2017 03/04/2018 1 1 Services Required Encounter Details Date Type Department Care Team Description 09/05/2017 Orders Only Department of [facility] Naren Kruger , Internal Medicine in [place], [place] [address] [place] [address] [place] [address] [phone] Social History Tobacco Use Types Packs/Day Years Used Date Smoking Tobacco: Former Sex Assigned at Date Recorded Not on file documented as of this encounter Plan of Treatment Upcoming Encounters Date Type Specialty Care Team Description 09/27/2022 Office Visit Dermatology Marianela Braden M.D. 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 PCP - General 04/20/17 06/28/[address] [place] [phone] documented as of this encounter
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
--- OUTSIDE RECORDS SUMMARY | 2022-08-14 22:58 | XMS_ITS | Encounter Summary ---
:1945 Author Organization [facility] Address [address] [place] [address] Care Team Providers Name Role Phone Unavailable Primary Care Provider Unavailable Encounter Details Date Type Department Care Team Description 12/02/2015 Hospital Encounter HX NO MAPPING Fabricio Kruger M.D. [address] [place] [address] 021 (Wo rk) Social History Tobacco Use Types Packs/Day Years Used Date Smoking Tobacco: Never Assessed Sex Assigned at Date Recorded Not on [...] of this encounter Miscellaneous Notes Miscellaneous - Conversion, Historical Provider Ser - 12/02/2015 11:59 PM RADIOLOGICAL TECHNOLOGIST Coding Summary-Paper Based CODING DATE: 12/11/2015 FINAL [facility] STATUS: * Discharged to Home or Self Care PAYOR: Medicare ADMIT DX: REASON FOR VISIT DX: FINAL DX: PRINCIPAL: E11.9 Type 2 diabetes mellitus without complications SECONDARY: PROCEDURES DOCTOR NAME DATE NOTE: The code number assigned matches the documented diagnosis and / or procedure in the patient's chart. However, the narrative phrase printed from the coding software may appear abbreviated, or result in slightly different terminology. Coded By: RADHA MENDOZA Date Saved: 12/11/2015 03:26 pm Source: [facility] POWERCHART Document Id: [id number] documented in this encounter Plan of Treatment Upcoming Encounters Date Type Specialty Care Team Description 09/27/2022 Office Visit Dermatology Marianela Braden M.D. [address] [place], [place] [address] [phone] (Wo rk) documented as of this encounter Visit Diagnoses Not on filedocumented in this encounter Additional Health Concerns Assessment Noted Time PHQ-9 Depression Total Score: 1 12/02/2015 8:50 AM RADIOLOGICAL TECHNOLOGIST documented as of this encounter
--- OUTSIDE RECORDS SUMMARY | 2022-08-14 22:58 | XMS_ITS | Encounter Summary ---
:1945 Author Organization [facility] Address [address] [place] [address] Care Team Providers Name Role Phone Naren Kruger M.D. Primary Care Provider Encounter Details Date Type Department Care Team Description 06/28/2017 Hospital Encounter HX NO MAPPING Christie Moffett, TIPPLE TENDER, C.N.P. [address], [place] [phone] Naren Kruger M.D. [address] [place] [phone] Social History Tobacco Use Types Packs/Day Years Used Date Smoking Tobacco: Former Sex Assigned at Date Recorded Not on file documented as of this encounter Medications at Time of Discharge Medication Sig Dispensed Refills Start Date End Date aspirin [address] tablet Take 1 tablet by 0 2013 mouth daily. atorvastatin (LIPITOR) 40 Take 1 tablet by 0 /0 04/2017 mg tablet mouth at bedtime. vit Take 1 capsule by 0 12/02/2015 C/E/Zn/coppr/lutein/zeaxa mouth 2 (two) times n (PRESERVISION AREDS-2 a day. ORAL) atenolol (TENORMIN) 50 mg Take 1 tablet by 0 05/2 04/201706/28/2022 tablet mouth daily. glipiZIDE (GLUCOTROL) 5 Take 1 tablet by 0 201607/29/2019 mg tablet mouth daily. documented as of this encounter Miscellaneous Notes Miscellaneous - Conversion, Historical Provider Ser - 06/28/2017 11:59 PM CDT Coding Summary-Paper Based CODING DATE: 07/11/2017 FINAL [facility] STATUS: * Discharged to Home or Self Care PAYOR: Medicare ADMIT DX: REASON FOR VISIT DX: FINAL DX: PRINCIPAL: R53.83 Other fatigue SECONDARY: PROCEDURES DOCTOR NAME DATE NOTE: The code number assigned matches the documented diagnosis and / or procedure in the patient's chart. However, the narrative phrase printed from the coding software may appear abbreviated, or result in slightly different terminology. Coded By: DILEEP SAUCEDA Date Saved: 07/11/2017 12:51 pm Source: [employer] Document Id: [id number] documented in this encounter Plan of Treatment Upcoming Encounters Date Type Specialty Care Team Description 09/27/2022 Office Visit Dermatology Marianela Braden M.D. [address] [place], [place] [phone] (Wo rk) documented as of this encounter Visit Diagnoses Not on filedocumented in this encounter Additional Health Concerns Assessment Noted Time PHQ-9 Depression Total Score: 1 12/02/2015 8:50 AM APPRAISAL TECHNICIAN documented as of this encounter Care Teams Leather Goods I Assembler Relationship Specialty Start Date End Date Naren Kruger M.D. PCP - General 04/20/17 06/28/[address] [place] [phone] documented as of this encounter
--- OUTSIDE RECORDS SUMMARY | 2022-08-14 22:58 | XMS_ITS | Encounter Summary ---
:1945 Author Organization [facility] Address [address] [place] [address] Care Team Providers Name Role Phone Naren Kruger M.D. Primary Care Provider Encounter Details Date Type Department Care Team Description 06/28/2017 Hospital Encounter HX [facility] LAB Jairo Kruger M.D. [address] [place] [phone] (Wo yajaira) Social History Tobacco [...] Visit Dermatology Marianela Braden M.D. [address] [place], [place] [phone] (Wo rk) documented as of this encounter Visit Diagnoses Not on filedocumented in this encounter Additional Health Concerns Assessment Noted Time PHQ-9 Depression Total Score: 1 12/02/2015 8:50 AM ANALYST FOOD AND BEVERAGE documented as of this encounter Care Teams Voip Network Technician Relationship Specialty Start Date End Date Naren Kruger M.D. PCP - General 04/20/17 06/28/[address] [place] [phone] documented as of this encounter
--- OUTSIDE RECORDS SUMMARY | 2022-08-14 22:58 | XMS_ITS | Encounter Summary ---
:1945 Author Organization [facility] Address [address] [place] [address] Care Team Providers Name Role Phone Elsewhere, Pcp Primary Care Provider Unavailable Reason for Visit Reason Comments Follow-up Encounter Details Date Type Department Care Team Description 03/04/2019 Office Visit Department of Marianela Braden, Tumor Skin Uncertain Behavior (Primary Dx); Dermatology in [facility]; [place], [place] [address] [facility] Cancer Skin Basal Cell Personal History [address] [place] [phone] Social History Tobacco Use Types Packs/Day Years Used Date Smoking Tobacco: Unknown Smokeless Tobacco: Never Sex Assigned at Date Recorded Not on file documented as of this encounter Progress Notes Marianela Braden M.D. - 03/04/2019 11:00 AM CDT CHIEF COMPLAINT Lesion involving nasal tip HISTORY OF THE PRESENT ILLNESS Jessica Meek is a pleasant 73 y.o. female who follows up for evaluation of a rough lesion involving the nasal tip. She first noticed it in October 2018 and it has not bled. The patient has a history of basal cell carcinoma involving her right hinduism status post Mohs surgery at [place] in June 2013. She denies a personal history of melanoma. Her brother has a history of melanoma. PAST MEDICAL HISTORY 1. Basal cell carcinoma involving her right hinduism status post Mohs surgery at [place] in June 2013 FAMILY HISTORY Brother has history of melanoma PHYSICAL EXAM General: Awake, alert, in no acute distress, and with appropriate affect. Skin: Examination of the right hinduism reveals excision scar with no evidence of recurrence of basal cell carcinoma. Just adjacent to this there is a seborrheic keratosis versus verrucal keratosis. Examination of the left hinduism reveals actinic keratoses x 2. Examination of the nasal tip reveals 3 mm x2.5 mm pearly papule with some some telangiectasia. IMPRESSION AND PLAN #1 Nasal tip: Rule out basal cell carcinoma We recommend a shave biopsy of the nasal tip. Photograph taken today with patient's verbal consent. We will correspond as to the results and if any further treatment is needed. PROCEDURAL PAUSE Procedural pause conducted to verify: correct patient identity, procedure to be performed, and as applicable, correct side and site, correct patient position, and availability of implants, special equipment, or special requirements. PROCEDURE DETAILS Shave biopsy. We explained the potential diagnosis and recommended that we obtain a biopsy. The risks and benefitsof the procedure were discussed, and the patient consented to these procedures. The patient denies any allergies to local anesthetics. Using 1% lidocaine with epinephrine for local anesthesia, a shave biopsy was obtained from the nasal tip. Biopsy submitted to Dermatopathology for H&E. Special stains will be performed as indicated. The bleeding was well controlled with application of aluminum chloride. Dressing was applied, and wound care instructions were explained. Biopsy results and any further recommendations will be communicated to the patient by letter. Patient given pamphlet [id number]. Discussed the risks, benefits, alternatives, and the necessity of other members of the healthcare team participating in the procedure. All questions answered and consent given. #2 Left hinduism: Actinic keratosis x 2 CONSENT Discussed the risks, benefits, alternatives, and the necessity of other members of the healthcare team participating in the procedure. All questions answered and consent given. ?? PROCEDURE INFORMATION Given the precancerous nature of this lesion(s), treatment is medically indicated. After discussion of the risks, benefits and alternatives to treatment with cryotherapy, informed consent was obtained.We treated a total of 2 lesion(s) with two 15-60-cfnktz freeze-thaw cycles of liquid nitrogen cryothe rapy. The patient tolerated the procedure well. Aftercare instructions were provided in written and verbal form to the patient. Should any of these lesions recur, the patient should return for biopsy or further evaluation. Follow up in 1-2 months for recheck if these do not completely resolve. #3 Right hinduism: History of basal cell carcinoma status post Mohs surgery in June 2013 No evidence for recurrence of squamous cell carcinoma on clinical exam today. Follow-up immediately if any changes or evidence for recurrence. PATIENT EDUCATION Ready to learn. No apparent learning barriers were identified. Learning preferences include listening. Explained diagnosis and treatment plan; patient/guardian of patient expressed understanding of thecontent. By signing my name below, IAmirah, attest that this documentation has been prepared under thedirection and in the presence of Marianela Braden M.D. Electronically Signed: nay George. 03/04/2019. 10:54 AM . IMarianela M.D., personally performed the services described in this documentation. All medical record entries made by the scribe were at my direction and in my presence. I have reviewed the chart and discharge instructions (if applicable) and agree that the record reflects my personal performance and is accurate and complete. Marianela Braden M.D. . 03/04/2019. 11:49 AM. Marianela Braden M.D. - 03/04/2019 11:00 AM CDT Benign lesion. [place] patient. please send letter documented in this encounter Plan of Treatment Upcoming Encounters Date Type Specialty Care Team Description 09/27/2022 Office Visit Dermatology Marianela Braden M.D. [address] [place], [place] [phone] (Wo rk) documented as of this encounter Procedures Procedure Name Priority Date/Time Associated Comments Diagnosis DERMATOPATHOLOGY CONSULT Routine 03/04/2019 11:11 Tumor Skin Results for this AM CDT Uncertain Behavior procedure are in the results section. documented in this encounter Results Dermatopathology Consult (03/04/2019 11:11 AM CDT) Component Value Ref Test Analysis Performed At [facility] Method Time Signature Gross Received in formalin labeled with the patient's name, 03/11/2019 [facility] Description: medical record number, and nasal tip is a 0.5 x 0.2 x 0.1 4:31 PM CDT LABORATORIES - cm pale manning previously inked skin shave biopsy. No discrete [facility] lesion is grossly identified on the skin surface. The [place] specimen is submitted en toto in cassette A1. Grossed by [facility]. Report Fidelina N. 03/11/2019 [facility] electronically Neris Norton 4:31 PM CDT LABORATOR IES - signed by [facility] 03/11/2019 [facility] 4:31 PM CDT LABORATORIES - [facility] Interpetation FINAL DIAGNOSIS 03/11/2019 [facility]. ??DermPath Consult Wet Tissue; Nasal tip, Skin shave 4:31 PM CDT LABORATORIES - biopsy: ??Dilated telangiectasias; no tumor identified after [facility] multiple tissue levels examined CAMPUS Specimen Anatomical Collection Method Collection Time Receive d Time (Source) Location / / Volume Laterality Tissue 03/04/2019 11:11 03/05/2019 7:42 AM CDT AM CDT Narrative This result has an attachment that is no t available. Marianela Braden M.D. LAB PATH DERM ORDERABLES Performing Organization Address City/State/ZIP Code Phon e Number [facility] LABORATORIES - [address] documented in this encounter Visit Diagnoses Diagnosis Tumor Skin Uncertain Behavior - Primary [facility] Cancer Skin Basal Cell Personal History documented in this encounter Administered Medications Inactive Administered Medications - up to 3 most recent administrations Medication Order MAR Action Action Date Dose Rate Site lidocaine-EPINEPHrine 1 %-1:100,000 Given 03/04/2019 11:20 AM CD T 1 mL injection 1 mL (XYLOCAINE W/EPI) 1 mL, infiltration, Once, On 03/04/19 at 1115, For 1 dose documented in this encounter Additional Health Concerns Assessment Noted Time PHQ-9 Depression Total Score: 1 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
--- OUTSIDE RECORDS SUMMARY | 2022-08-14 22:58 | XMS_ITS | Encounter Summary ---
:1945 Author Organization [facility] Address [address] [place] [address] Care Team Providers Name Role Phone Dary Newman APRN, C.N.P. Primary Care Provider [phone] Reason for Visit Reason Comments Skin Check Encounter Details Date Type Department Care Team Description 07/31/2018 Office Visit Department of Marianela Braden, Keratosis Actinic (Primary Dx); Dermatology in [place] Cancer Skin Basal Cell Personal History; [place], [place] [address] [facility] [place]; [id number] Keratosis [place]borr[place] [phone] Social History Tobacco Use Types Packs/Day Years Used Date Smoking Tobacco: Unknown Smokeless Tobacco: Never Sex Assigned at Date Recorded Not on file documented as of this encounter Progress Notes Marianela Braden M.D. - 07/31/2018 1:30 PM CDT CHIEF COMPLAINT/REASON FOR VISIT Skin cancer recheck HISTORY OF PRESENT ILLNESS Ms. Jessica Meek is a 72 y.o. female who presents today for a full skin cancer screening examination. I last saw the patient at the [facility] on 02/13[facility]18. The patient has a history of basal cell carcinoma involving her right confucianist status post Mohs surgery at [place] in June 2013. She also has a history of actinic keratoses involving her face. She denies any personal history of melanoma. Her brother has a history of melanoma. The patient does use sunscreen. The patient has one lesion on her rightforearm which is currently resolving. The lesion first appeared one month ago. Initially, she had anopen and raised lesion on her right forearm which was tender to touch. Touching the lesion caused a b urning sensation. She applied over the counter hydrocortisone cream which alleviated the tenderness.Over the last couple of weeks, the lesion decreased in size. Allergies Allergen Reactions ??? Cat Dander Other (see comments) Runny nose itchy eyes ??? Pollen Extracts Other (see comments) Runny nose, itchy eyes PAST MEDICAL HISTORY Basal cell carcinoma involving her right confucianist status post Mohs surgery at [place] in June 2013 FAMILY HISTORY Brother has history for melanoma. PHYSICAL EXAM General: Awake, alert, in no acute distress, and with appropriate affect. Eyes: No scleral injection or icterus. No eyelid abnormalities. Lymph: No lower extremity edema. Skin: I have examined the scalp, face, neck, chest, abdomen, back, bilateral upper extremities, and bilateral lower extremities. Examination of the right forearm reveals one actinic keratosis. Examination of the arms otherwise reveals benign nevi, lentigines and a few seborrheic keratoses. Examinationof the right confucianist/forehead reveals a scar with no evidence for recurrence of basal cell carcinoma.Examination of the right neck and right jawline reveals a few seborrheic keratoses. Examination of the left cheek reveals some sebaceous hyperplasia. Examination of the back reveals multiple seborrheickeratoses. Examination of the posterior legs reveals seborrheic keratoses. Examination of the left lower leg reveals a scar with minimal scaling at a previous shave biopsy site of a verrucal keratosis.Examination of the right lower leg reveals a larger, light brown seborrheic keratosis. Examination of the chest, abdomen and under breast reveals multiple seborrheic keratoses. No suspicious lesions for skin cancer today. IMPRESSION/REPORT/PLAN #1 Right confucianist: History of basal cell carcinoma status post Mohs surgery at [place] in June 2013 No evidence for recurrence on exam today. Follow-up immediately if any evidence for recurrence. Otherwise, follow up in 1 year #2 Right arm: Actinic keratosis CONSENT Discussed the risks, benefits, alternatives, and the necessity of other members of the healthcare team participating in the procedure. All questions answered and consent given. ?? PROCEDURE INFORMATION Given the precancerous nature of this lesion, treatment is medically indicated. After discussion of the risks, benefits and alternatives to treatment with cryotherapy, informed consent was obtained. Wetreated a total of 1 lesion with two 47-77-msywmc freeze-thaw cycles of liquid nitrogen cryotherapy.The patient tolerated the procedure well. Aftercare instructions were provided in written and verbalform to the patient. Should any of these lesions recur, the patient should return for biopsy or further evaluation. Follow up in 1-2 months for recheck if these do not completely resolve. #3 Multiple nevi The ABCDE criteria for melanoma was reviewed [...] reassessment. #4 Face, trunk and extremities: Seborrheic Keratosis The benign nature of the skin lesions was discussed with the patient. No treatment is required. I recommend continued observation. Should symptoms or changes develop related to this condition, I would recommend a return visit for reassessment. PATIENT EDUCATION Ready to learn. No apparent learning barriers were identified. Learning preferences include listening. Explained diagnosis and treatment plan; patient/guardian of patient expressed understanding of thecontent. By signing my name below, I, Chapincito Mendez, attest that this documentation has been prepared underthe direction and in the presence of Marianela Braden M.D.. Electronically Signed: nay Alberto. 07/31/2018. 1:35 PM . Marianela Diane M.D., personally performed the services described in this documentation. All medical record entries made by the scribe were at my direction and in my presence. I have reviewed the chart and discharge instructions (if applicable) and agree that the record reflects my personal performance and is accurate and complete. Marianela Braden M.D. . 07/31/2018. 1:47 PM. documented in this encounter Plan of Treatment Upcoming Encounters Date Type Specialty Care Team Description 09/27/2022 Office Visit Dermatology Marianela Braden M.D. 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 PCP - General Internal Medicine 06/29/18 01/29/[address] [place] [phone] documented as of this encounter
--- OUTSIDE RECORDS SUMMARY | 2022-08-14 22:58 | XMS_ITS | Encounter Summary ---
:1945 Author Organization [facility] Address [address] [place] [address] Care Team Providers Name Role Phone Unavailable Primary Care Provider Unavailable Encounter Details Date Type Department Care Team Description 03/27/2015 Hospital Encounter HX [facility] FB Naren Ervin M.D. [address] [place] [phone] (Marty gates) Social History Tobacco Use Types Packs/Day Years Used Date Smoking Tobacco: Never Assessed Sex Assigned at Date Recorded Not on file documented as of this encounter Last Filed Vital Signs Vital Sign Reading Time Taken Comments Blood Pressure - - Pulse - - Temperature - - Respiratory Rate - - Oxygen Saturation - - Inhaled Oxygen Concentration - - Weight - - Height 160 cm (5' 2.99) 03/27/2015 10:25 AM CDT Body Mass Index - - documented in this encounter Medications at Time of Discharge Medication Sig Dispensed Refills Start Date End Date aspirin [address] tablet Take 1 tablet by mouth 0 03/14/2014 daily. documented as of this encounter Plan of Treatment Upcoming Encounters Date Type Specialty Care Team Description 09/27/2022 Office Visit Dermatology Marianela Braden M.D. [address] [place], [place] [phone] (Wo rk) documented as of this encounter Procedures Procedure Name Priority Date/Time Associated Diagnosis Comme nts BI BREAST SCREENING Routine 03/27/2015 11:00 AM R esults for this BILATERAL CDT procedure are i n the results section. documented in this encounter Results BI Breast Screening Bilateral (03/27/2015 11:00 AM CDT) Anatomical Region Laterality Modality Breast Bilateral Mammography Specimen (Source) Anatomical Collection Method Collection Time Re ceived Time Location / / Volume Laterality 03/27/2015 11:00 AM CDT Addenda Addendum by Provider, Neris Reyes 03/27/2015 11:00 AM CDT RAD^^^OW MA Mammo Screening w ??CADD 03/27/2015 11:00:00 Addendum by Provider, Neris Reyes n 03/27/2015 10:43 AM CDT RAD^^^OW MA Mammo Screening w ??CADD 03/27/2015 10:43:01 Impressions 03/27/2015 3:06 PM CDT Benign findings, BIRADS 2. Yearly mammograms are recommended. MAMMOGRAPHY - GENERAL OBSERVATIONS: The reported false negative rate for mammography is 15-20%. It cannot be used, therefore, to replace the regular physical examination. A norm al or noncontributory mammogram report also should not deter t he aggressive further workup of any suspected palpable masses. Narrative 03/27/2015 3:06 PM CDT HISTORY: Screening mammogram. Technique: Bilateral digital mammograms were obtained in the CC and MLO projections. COMPARISON: 09/03/2013 and prior. FINDINGS: There has been no significant interval change (mild benign calcifications are once again observed). The breast parenchymal pattern remains heterogeneously dense fo r age 69 which mildly decreases mammographic sensitivity. Ther e is no definite evidence of a new dominant spiculated mass / focal a symmetry, concerning clustered pleomorphic microcalcification s, or architectural distortion. No new skin thickening or ni pple retraction / inversion. No other definite concerning mammogram f indings. CAD was utilized. Procedure Note Dov Low M.D. / Provider, Amira harris M.D. - 03/15/2017 HISTORY: Screening mammogram. Technique: Bilateral digital mammograms were obtained in the CC and MLO projections. COMPARISON: 09/03/2013 and prior. FINDINGS: There has been no significant interval change (mild benign calcifications are once again observed). The breast parenchymal pattern remains heterogeneously dense fo r age 69 which mildly decreases mammographic sensitivity. Ther e is no definite evidence of a new dominant spiculated mass / focal a symmetry, concerning clustered pleomorphic microcalcification s, or architectural distortion. No new skin thickening or ni pple retraction / inversion. No other definite concerning mammogram f indings. CAD was utilized. IMPRESSION: Benign findings, BIRADS 2. Yearly mammograms are recommended. MAMMOGRAPHY - GENERAL OBSERVATIONS: The reported false negative rate for mammography is 15-20%. It cannot be used, therefore, to replace the regular physical examination. A norm al or noncontributory mammogram report also should not deter t he aggressive further workup of any suspected palpable masses. Historical Provider IMG BI PROCEDURES documented in this encounter Visit Diagnoses Not on filedocumented in this encounter Additional Health Concerns Assessment Noted Time PHQ-9 Depression Total Score: 3 05/05/2014 7:55 AM CDT documented as of this encounter
--- OUTSIDE RECORDS SUMMARY | 2022-08-14 22:58 | XMS_ITS | Encounter Summary ---
:1945 Author Organization [facility] Address [address] [place] [address] Care Team Providers Name Role Phone Naren Kruger M.D. Primary Care Provider Encounter Details Date Type Department Care Team Description 05/30/2018 Clinical Communication Department of Naren Thomas [place] M, M.D. [facility], in [address] [address] [place], [place] [phone] (Work) [phone] Social History Tobacco Use Types Packs/Day Years Used Date Smoking Tobacco: Unknown Sex Assigned at Date Recorded Not on file documented as of this encounter Plan of Treatment Upcoming Encounters Date Type Specialty Care Team Description 09/27/2022 Office Visit Dermatology Marianela Braden M.D. 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 PCP - General 04/20/17 06/28/[address] [place] [phone] documented as of this encounter
--- OUTSIDE RECORDS SUMMARY | 2022-08-14 22:58 | XMS_ITS | Encounter Summary ---
:1945 Author Organization [facility] Address [address] [place] [address] Care Team Providers Name Role Phone Elsewhere, Pcp Primary Care Provider Unavailable Reason for Referral Outpatient (Routine) - Closed Specialty Diagnoses / Procedures Referred By Contact Refer red To Contact Dermatology Marianela Braden M.D . [facility] Region [address] [place] [address] Referral ID Status Reason Start Date Expiration Date Visits Requ ested Visits Authorized [id number] Closed 07/29/2019 07/28/2020 1 1 Scheduling Instructions Recheck skin lesions in 3 months Reason for Visit Reason Comments Follow-up Appointment Request (Routine) - Closed Specialty Diagnoses / Procedures Referred By Contact Refer red To Contact Dermatology Referral ID Status Reason Start Date Expiration Date Visits Requ ested Visits Authorized [id number] Closed 04/30/2019 04/29/2020 1 Encounter Details Date Type Department Care Team Description 07/29/2019 Office Visit Department of Marianela Braden Nevi Multi ple (Primary Dx); Dermatology in [facility]; [place], [place] [address] [facility]atosis Seborrheic; [address] [place] [address] Keratosis Seborrheic Inflame d; [place] [address] Cancer Skin Basal Cell Personal History [id number] Social History Tobacco Use Types Packs/Day Years Used Date Smoking Tobacco: Unknown Smokeless Tobacco: Never Sex Assigned at Date Recorded Not on file documented as of this encounter Progress Notes Marianela Braden M.D. - 07/29/2019 8:30 AM CDT CHIEF COMPLAINT/REASON FOR VISIT 1. Recheck actinic keratosis involving right upper eyelid 2. Full skin cancer screening HISTORY OF PRESENT ILLNESS Ms. Jessica Meek is a 73 y.o. female who presents for a recheck of an actinic keratosis involving the right upper eyelid. This was treated with liquid nitrogen cryotherapy by Dr. Fletcher at [facility] on 05/15/19. She says this has resolved since then. The patient is also here today for a full skin cancer screening examination. When last seen by me on03/04/19, she had a shave biopsy of a lesion involving the distal nasal tip which came back as dilated telangiectasias. Back in January 2016, she also had a biopsy done at the [facility] for a lesion involving the left lower leg which was a verrucal keratosis. The patient has??a history of??basal cell carcinoma involving her right jainism status post Mohs surgery at [facility] in June 2013. She denies a personal history of melanoma. Her brother has a history of melanoma. Allergies Allergen Reactions ??? Cat Dander Other (see comments) Runny nose itchy eyes ??? Pollen Extracts Other (see comments) Runny nose, itchy eyes PAST MEDICAL HISTORY 1. Basal cell carcinoma involving right jainism, status post Mohs surgery at [facility] in June2013 2. Negative for melanoma ?? FAMILY HISTORY Brother has history of melanoma PHYSICAL EXAM General: Awake, alert, in no acute distress, and with appropriate affect. Eyes: No scleral injection or icterus. No eyelid abnormalities. Lymph: No lower extremity edema. Skin: I have examined the scalp, face, neck, chest, abdomen, back, bilateral upper extremities, and bilateral lower extremities. Examination of the face reveals actinic keratoses, including distal nasal tip x2 and left cheek x1. Examination of the distal nasal tip reveals a shave biopsy scar which hashealed. There is no lesion present. Examination of the right upper eyelid just inferior to the eyebrow reveals a small focal area of hypopigmentation. There is no evidence for actinic keratosis. Examination of the right jainism reveals no evidence for recurrence of basal cell carcinoma. Examination of the chest and abdomen reveals several seborrheic keratoses. Examination of the arms reveals a few benign-appearing nevi and several seborrheic keratoses. Examination of the back reveals multiple seborrheic keratoses. Examination of the left medial calf reveals a 1.8 cm x 1.2 cm slightly erythematous scaly plaque, compatible with a slightly irritated seborrheic keratosis. Previous biopsy was read out as verrucal keratosis. Examination of the right medial calf reveals a similar- appearing seborrheic keratosis. Examination of the posterior legs reveals a few seborrheic keratoses. No suspicious lesions for skin cancer today. IMPRESSION/REPORT/PLAN #1 Distal nasal tip and left cheek: Actinic keratosis x3 CONSENT Discussed the risks, benefits, alternatives, and the necessity of other members of the healthcare team participating in the procedure. All questions answered and consent given. PROCEDURE INFORMATION Given the precancerous nature of this lesion(s), treatment is medically indicated. After discussion of the risks, benefits and alternatives to treatment with cryotherapy, informed consent was obtained.We treated a total of 3 lesion(s) with two 5-10-second freeze-thaw cycles of liquid nitrogen cryother apy. The patient tolerated the procedure well. Aftercare instructions were provided in written and verbal form to the patient. Should any of these lesions recur, the patient should return for biopsy orfurther evaluation. Follow up in 1-2 months for recheck if these areas do not complete resolve. #2 Left medial calf: Irritated seborrheic keratosis The patient previously had a biopsy done in January 2016 which was read as a verrucal keratosis. We considered the options of observation versus repeat biopsy. Given that my suspicion for malignancy is low and considering that the patient had a prolonged healing process from the last biopsy and she is di abetic, I am comfortable with continued observation for the time being. The patient understands and agrees with this plan. Follow up in 3 months for recheck of this lesion involving the left medial calf, or immediately if any changes are noted. #3 Trunk and extremities: Multiple nevi The ABCDE criteria for melanoma [...] return visit for reassessment. Follow up in 6months or immediately if any new or changing lesions are noted. #4 Trunk and extremities: Seborrheic keratosis The benign nature of the skin lesion(s) was discussed with the patient. No treatment is required. I recommend continued observation. Should symptoms or changes develop related to this condition, I would recommend a return visit for reassessment. #5 Right jainism: History of basal cell carcinoma, status post Mohs surgery at [facility] in June 2013 No evidence for recurrence on clinical exam today. Continue observation. Return immediately if changes are noted. Otherwise, follow up in 6-12 months for a full skin cancer screening examination. PATIENT EDUCATION: Ready to learn. No apparent learning barriers were identified. Learning preferences include listening. Explained diagnosis and treatment plan; patient/guardian of patient expressed understanding of thecontent. By signing my name below, I, Nito Peralta, attest that this documentation has been prepared under thedirection and in the presence of Marianela Braden M.D. Electronically Signed: nay Virk. 07/29/2019. 8:36 AM. IMarianela M.D., personally performed the services described in this documentation. All medical record entries made by the scribe were at my direction and in my presence. I have reviewed the chart and discharge instructions (if applicable) and agree that the record reflects my personal performance and is accurate and complete. Marianela Braden M.D. . 07/29/2019. 9:23 AM. documented in this encounter Plan of Treatment Upcoming Encounters Date Type Specialty Care Team Description 09/27/2022 Office Visit Dermatology Marianela Braden M.D. 

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
--- OUTSIDE RECORDS SUMMARY | 2022-08-14 22:58 | XMS_ITS | Encounter Summary ---
:1945 Author Organization [facility] Address [address] [place] [address] Care Team Providers Name Role Phone Unavailable Primary Care Provider Unavailable Encounter Details Date Type Department Care Team Description 12/08/2015 Hospital Encounter HX [facility] Jairo Mix M.D. [address] [place] [address] 021 (Wo rk) Social History Tobacco Use [...] of this encounter Miscellaneous Notes Miscellaneous - Danuta Méndez, C.M.A. - 01/05/2017 10:02 AM CST Test strips refill request Document Contains Addenda Addendum by CHAPITO JAY RN on January 05, 2017 11:53:03 COMPUTER ANIMATOR rx has been sent. Addendum by SALLY MITTAL RN on January 05, 2017 10:37:09 COMPUTER ANIMATOR sent proposal to DMB From: DANUTA RIVERO CMA ( Brandin Kruger Nurse) To: GRZEOGRZ Miller Medication Refill; Sent: 01/05/2017 10:02:24 COMPUTER ANIMATOR Subject: Test strips refill request Caller is: (X) Patient ( ) Mother ( ) Father ( ) Spouse ( ) Daughter ( ) Son ( ) Pharmacy ( ) Other: Provider: Dr. Brandin Kruger Pharmacy: [facility] Name of Medications Needing Refill: One touch ultra blue test strips Last Refill Date: ? Additional Information: Will run out this month. Switched from Christie Moffett to Dr. 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 Script ( ) Mail Rx to Patient Source: [facility] POWERCHART Document Id: [id number] Electronically signed by Conversion, [employer] Senior Technical Support Engineer [id number] at 04/01/2017 9:47 AM CDT Telephone Encounter - Conversion, Historical Provider Ser - 01/05/2017 9:53 AM CST *Phone Message/D Maryanne Document Contains Addenda Addendum by DANUTA RIVERO CMA on January 05, 2017 10:00:33 COMPUTER ANIMATOR From: DANUTA RIVERO CMA (GRZEGORZ Kruger Nurse) To: BRANDIN KRUGER MD; Sent: 01/05/2017 10:00:33 COMPUTER ANIMATOR Subject: FW: *Phone Message/D Maryanne Addendum by DANUTA RIVERO CMA on January 05, 2017 10:00:16 COMPUTER ANIMATOR Spoke with: (X) Patient ( _ ) Parent ( _ ) Spouse ( _ ) Child ( ) Other: _ Call back telephone number: [phone] Reason for Call: -Rx Chief Complaint: Needs a new script for the Metformin. They aren't willing to give the patient two tablets twice daily at the pharmacy. Pharmacy is [facility]. Patient/Caller response to Education/Information given: (X) Verbalizes understanding of instructions ( _ ) Provide intervention per provider instruction ( _ ) Reinforce information already given ( _ ) Reinforce Plan of Care ( _ ) Provide preprinted information by mail (if applicable) Source/Reference used (if applicable): Dr. Brandin Kruger OK to leave message on voice mail? Yes OK to send message via patient portal? Yes Patient told to expect return call: ( _ ) today ( _ ) tomorrow ( _ ) next work day Callers preferred language for Healthcare discussion: Panamanian Was an entertainer or variety artist used for this call? No Other ( --_ ) From: KATELYN MENDOZA ([address] Nurse) To: GRZEGORZ Kruger Nurse; Sent: 01/05/2017 09:53:55 COMPUTER ANIMATOR Subject: *Phone Message/D Maryanne Caller is: (x ) Patient ( ) Mother ( ) Father ( ) Spouse ( ) Daughter ( ) Son ( ) Pharmacy ( ) Other: Physician: Patient MRN #: Reason for Call: Message: Patient called, in [place], tried to send a rx to [place]. There is a mix up in Metformin,1000 and getting it filled, dosage was increased. She also has another question on another med [phone] Advice/Action: Source used: ( ) Verbalizes understanding [...] back cell phone number ( ) Source: [facility] POWERCHART Document Id: [id number] Miscellaneous - Brandin Kruger M.D. - 12/08/2015 3:31 PM CST Results Notification Document Contains Addenda Addendum by IRVIN SMITH LPN on 08 December 2015 16:30:04 COMPUTER ANIMATOR called with results From: BRANDIN KRUGER MD To: GRZEGORZ Kruger Nurse; Sent: 12/08/2015 15:31:12 COMPUTER ANIMATOR ! Show up: 12/08/2015 15:31:12 COMPUTER ANIMATOR Subject: Results Notification Actions: Notify patient of results Reminder Comments: ok Results: Date Result Name Ind Value Ref Range 12/08/2015 09:43 Cholesterol 158 mg/dL ( - <=199) 12/08/2015 09:43 Trig (H) 173 mg/dL ( - <=149) 12/08/2015 09:43 HDL 54 mg/dL (>=50 - ) 12/08/2015 09:43 LDL Calculated 69 mg/dL ( - <=129) 12/08/2015 09:43 Chol/HDL Ratio 2.93 12/08/2015 09:43 LDL/HDL 1 Source: [facility] POWERCHART Document Id: [id number] Electronically signed by Conversion, [employer] Senior Technical Support Engineer [id number] at 04/01/2017 9:47 AM CDT documented in this encounter Plan of Treatment Upcoming Encounters Date Type Specialty Care Team Description 09/27/2022 Office Visit Dermatology Marianela Braden M.D. [address] [place], [place] [phone] (Wo rk) documented as of this encounter Procedures Procedure Name Priority Date/Time Associated Diagnosis Comme nts LIPID PANEL, S Routine 12/08/2015 9:43 AM Results for this COMPUTER ANIMATOR procedure are i n the results section . documented in this encounter Results (ABNORMAL) Lipid Panel (12/08/2015 9:43 AM COMPUTER ANIMATOR) P athologist Signature Calculated LDL 69 <=129 MGDL POWERCHART Comment: 2013 National Lipid [...] esting for FH and FDB [facility]: FH/ADH Genetic Reflex [place] el (test ADHP). Acquired (non-genetic) causes of markedly increased LDL cholesterol include cholestatic liver disease due to the presence of LpX. If a genetic form of hypercholesterolemia is suspected, family studies including biochemical testing fo r lipids (total cholesterol,triglycerides, LDL cholesterol and HDL cholesterol) are recommended. ??Please contact the laboratory at or the on-line test catalog at [employer] for information about how to order these poly ts or to speak with a genetic counselor. Further interpretation would require clinical information. Total Cholesterol/HDL Ratio 2.93 PO WERCHART Cholesterol, Total 158 <=199 MGDL POWERCHART Comment: 2014 National Lipid Association recommen dations for Total Cholesterol in adults ages 18 and up: Desirable <200 mg/dL Borderline high 200-239 mg/dL High 240 mg/dL 2014 National Lipid Association recommen dations for Total Cholesterol in children ages 2 to 17. Acceptable <170 mg/dL Borderline High 170-199 mg/dL High 200 mg/dL HX HDL 54 >=50 MGDL POWERCHART Comment: 2014 National Lipid Association recommen dations for HDL-C in adults ages 18 and up: Low <40 mg/dL (Men) Low <50 mg/dL (Women) 2014 National Lipid Association recommen dations for HDL-C in children ages 2 to 17. Low <40 mg/dL Borderline Low 40-45 mg/dL Acceptable >45 mg/dL Triglycerides 173 (H) <=149 MGDL POWERCHART Comment: 2014 National [...] for risk assessment when triglycerides are >400mg/dL. HXLDL/HDL 1 POWERCHART Specimen (Source) Anatomical Collection Method Collection Time Re ceived Time Location / / Volume Laterality Blood 12/08/2015 9:43 AM COMPUTER ANIMATOR Brandin Kruger M.D. LAB BLOOD ADD-ON Performing Organization Address City/State/ZIP Code Phon e Number POWERCHART documented in this encounter Visit Diagnoses Not on filedocumented in this encounter Additional Health Concerns Assessment Noted Time PHQ-9 Depression Total Score: 1 12/02/2015 8:50 AM COMPUTER ANIMATOR documented as of this encounter
--- OUTSIDE RECORDS SUMMARY | 2022-08-14 22:58 | XMS_ITS | Encounter Summary ---
:1945 Author Organization [facility] Address [address] [place] [address] Care Team Providers Name Role Phone Naren Kruger M.D. Primary Care Provider Encounter Details Date Type Department Care Team Description 06/28/2017 Hospital Encounter HX [facility] Jairo Kruger M.D. [address] [place] [phone] (Wo yajaira) Social History Tobacco [...] Visit Dermatology Marianela Braden M.D. [address] [place], [place] [phone] (Wo rk) documented as of this encounter Visit Diagnoses Not on filedocumented in this encounter Additional Health Concerns Assessment Noted Time PHQ-9 Depression Total Score: 1 12/02/2015 8:50 AM PRINTING SALES REPRESENTATIVE documented as of this encounter Care Teams Telecommunications Specialist Relationship Specialty Start Date End Date Naren Kruger M.D. PCP - General 04/20/17 06/28/[address] [place] [phone] documented as of this encounter
--- OUTSIDE RECORDS SUMMARY | 2022-08-14 22:58 | XMS_ITS | Encounter Summary ---
:1945 Author Organization [facility] Address [address] [place] [address] Care Team Providers Name Role Phone Unavailable Primary Care Provider Unavailable Encounter Details Date Type Department Care Team Description 03/31/2017 Hospital Encounter HX [facility] Jairo Mix M.D. [address] [place] [address] (Wo rk) Social History Tobacco Use [...] Encounter - Conversion, Historical Provider Ser - 04/05/2017 3:51 PM CDT *Phone Message/[place] Document Contains Addenda Addendum by IRVIN SMITH LPN on April 05, 2017 16:32:44 CDT Cub called From: KATELYN MENDOZA To: GRZEGORZ Kruger Nurse; Sent: 04/05/2017 15:51:27 CDT Subject: *Phone Message/[place] Caller is: ( ) Patient ( ) Mother ( ) Father ( ) Spouse ( ) Daughter ( ) Son ( ) Pharmacy ( ) Other: Physician: Patient MRN #: Reason for Call: Message: [facility] called. They said they just received a fax regarding if the pt should be on both blood pressure meds Atenolol and a seconed Atenolol plus Chlorthalidone, but the fax was unreadable. Fax is [phone] to try to refax or preferably, please call for a verbal, incase their fax machine isn't working correctly. The dr line is [phone] Advice/Action: Source used: ( ) Verbalizes understanding [...] back cell phone number ( ) Source: [facility] POWERCHART Document Id: [id number] Miscellaneous - Brandin Kruger M.D. - 04/04/2017 7:19 AM CDT Results Notification Document Contains Addenda Addendum by IRVIN SMITH LPN on April 05, 2017 08:59:28 CDT Spoke with: ( _x ) Patient ( _ ) Parent ( _ ) Spouse ( _ ) Child ( ) Other: _ Call back telephone number: _ Reason for Call: -_ test results Chief Complaint: called with results _ Patient/Caller response to Education/Information given: ( _ x) Verbalizes understanding of instructions ( _ ) [...] language for Healthcare discussion: _ Was an photographic laboratory supervisor used for this call? _ Other ( --_x ) no further action needed Addendum by LEIA OLIVA on April 05, 2017 08:42:55 CDT pt called, please call back Addendum by IRVIN SMITH LPN on April 05, 2017 08:35:39 CDT message left for patient to return call Addendum by IRVIN SMITH LPN on April 04, 2017 10:00:11 CDT message left for patient to return call From: BRANDIN KRUGER MD To: GRZEGORZ Kruger Nurse; Sent: 04/04/2017 07:19:12 CDT ! Show up: 04/04/2017 07:19:12 CDT Subject: Results Notification Actions: Notify patient of results Reminder Comments: very good Results: Date Result Name Value Ref Range 03/31/2017 09:34 Fructosamine-Scott 275 mcmol/L (200 - 285 - ) Source: [facility] POWERCHART Document Id: [id number] Electronically signed by Conversion, [facility] Customer Sales Advisor [id number] at 04/17/2017 10:42 PM CDT Miscellaneous - Brandin Kruger M.D. - 03/31/2017 8:06 PM CDT Results Notification Document Contains Addenda Addendum by IRVIN SMITH LPN on April 05, 2017 09:01:56 CDT Spoke with: ( x_ ) Patient ( _ ) Parent ( _ ) Spouse ( _ ) Child ( ) Other: _ Call back telephone number: _ Reason for Call: -_ test results Chief Complaint: called with results _ Patient/Caller response to Education/Information given: ( _x [...] language for Healthcare discussion: _ Was an photographic laboratory supervisor used for this call? _ Other (x --_ ) no further action needed Addendum by LEIA OLIVA on April 05, 2017 08:43:14 CDT pt called, please call back Addendum by IRVIN SMITH LPN on April 05, 2017 08:35:27 CDT message left for patient to return callmessage left for patient to return call Addendum by IRVIN SMITH LPN on April 04, 2017 10:00:22 CDT message left for patient to return call From: BRANDIN KRUGER MD To: GRZEGORZ Kruger Nurse; Sent: 03/31/2017 20:06:11 CDT ! Show up: 03/31/2017 20:06:11 CDT Subject: Results Notification Actions: Notify patient of results Reminder Comments: needs to stop the atenolol cholrthalidone as she is now hyponatremi.c. Will send plain torsemide andplain atenolol to [facility]. Recheck with me in 1 month Results: Date Result Name Ind Value Ref Range 03/31/2017 09:34 Sodium Lvl (L) 131 mmol/L (135 - 145) 03/31/2017 09:34 Potassium Lvl 5.2 mmol/L (3.6 - 5.2) 03/31/2017 09:34 Chloride (L) 92 mmol/L (98 - 107) 03/31/2017 09:34 CO2 27 mmol/L (22 - 29) 03/31/2017 09:34 AGAP 12 mmol/L (7 - 15) 03/31/2017 09:34 Glucose Lvl (H) 142 mg/dL (70 - 139) 03/31/2017 09:34 Creatinine 0.92 mg/dL (0.60 - 1.10) 03/31/2017 09:34 EGFR (MDRD) 60 mL/min/1.73m2 (>=60 - ) 03/31/2017 09:34 EGFR (MDRD) >60 mL/min/1.73m2 (>=60 - ) 03/31/2017 09:34 BUN (H) 27 mg/dL (6 - 21) 03/31/2017 09:34 Calcium Lvl 9.7 mg/dL (8.8 - 10.3) Source: [facility] POWERCHART Document Id: [id number] Electronically signed by Conversion, [facility] Customer Sales Advisor [id number] at 04/17/2017 10:42 PM CDT documented in this encounter Plan of Treatment Upcoming Encounters Date Type Specialty Care Team Description 09/27/2022 Office Visit Dermatology Marianela Braden M.D. [address] [place] [phone] (Wo rk) documented as of this encounter Procedures Procedure Name Priority Date/Time Associated Diagnosis Comme nts FRUCTOSAMINE, S/P Routine 03/31/2017 9:34 AM Resu lts for this CDT procedure are i n the results section. BASIC METABOLIC Routine 03/31/2017 9:34 AM Result s for this PANEL, S/P CDT procedure are i n the results section. documented in this encounter Results Fructosamine (03/31/2017 9:34 AM CDT) athologist Signature Fructosamine, S 275 200 - 285 POWERCHART GUCCI Comment: Test Performed by: [facility] [address] [place] [address] Specimen (Source) Anatomical Collection Method Collection Time Re ceived Time Location / / Volume Laterality Blood 03/31/2017 9:34 AM CDT Brandin Kruger M.D. LAB BLOOD ADD-ON Performing Organization Address City/State/ZIP Code Phon e Number POWERCHART (ABNORMAL) BMP (Basic Metabolic Panel) (03/31/2017 9:34 AM CDT) athologist Signature Sodium, S 131 (L) 135 - 145 POWERCHART MMOLL Potassium, S 5.2 3.6 - 5.2 POWERCHART MMO[facility] Chloride, S 92 (L) 98 - 107 POWERCHART [facility] CO2 Total 27 22 - 29 POWERCHART MMOLL Comment: Reference ranges have not been established for patients that are <12 months of age. BUN (Blood Urea Nitrogen), S 27 (H) 6 - 21 MGDL POWERCHART Creatinine 0.92 0.60 - 1.10 MGDL POWERCHART Calcium, Total, S 9.7 8.8 - 10.3 MGDL POWERC [place] Anion Gap 12 7 - 15 MMOLL POWERCHART HXeGFR (MDRD) 60 >=60 [id number] POWERCHART eGFR Black/ >60 >=60 [id number] POWERCHART Glucose 142 (H) 70 - 139 MGDL POWERCHART Specimen (Source) Anatomical Collection Method Collection Time Re ceived Time Location / / Volume Laterality Blood 03/31/2017 9:34 AM CDT Brandin Kruger M.D. LAB BLOOD ADD-ON Performing Organization Address City/State/ZIP Code Phon e Number POWERCHART documented in this encounter Visit Diagnoses Not on filedocumented in this encounter Additional Health Concerns Assessment Noted Time PHQ-9 Depression Total Score: 1 12/02/2015 8:50 AM AIRPLANE COVER MAKER documented as of this encounter
--- OUTSIDE RECORDS SUMMARY | 2022-08-14 22:58 | XMS_ITS | Encounter Summary ---
:1945 Author Organization [facility] Address [address] [place] [address] Care Team Providers Name Role Phone Unavailable Primary Care Provider Unavailable Encounter Details Date Type Department Care Team Description 12/02/2015 Hospital Encounter HX [facility] INTERNMED Jairo Kruger M.D. [address] [place] [address] 021 (Wo rk) Social History Tobacco Use Types Packs/Day Years Used Date Smoking Tobacco: Never Assessed Sex Assigned at Date Recorded Not on file documented as of this encounter Last Filed Vital Signs Vital Sign Reading Time Taken Comments Blood Pressure 132/70 12/02/2015 8:50 AM TECHNICAL COMMUNICATOR Pulse 65 12/02/2015 8:50 AM TECHNICAL COMMUNICATOR Temperature - - Respiratory Rate 16 12/02/2015 8:50 AM TECHNICAL COMMUNICATOR Oxygen Saturation - - Inhaled Oxygen Concentration - - Weight 98 kg (216 lb 0.8 oz) 12/02/2015 8:50 AM TECHNICAL COMMUNICATOR Height 159 cm (5' 2.6) 12/02/2015 8:50 AM TECHNICAL COMMUNICATOR Body Mass Index 38.76 12/02/2015 8:50 AM TECHNICAL COMMUNICATOR documented in this encounter Medications at Time of Discharge Medication Sig Dispensed Refills Start Date End Date aspirin [address] tablet Take 1 tablet by mouth 0 03/14/2014 daily. vit Take 1 capsule by 0 12/02/2015 C/E/Zn/coppr/lutein/zeaxa mouth 2 (two) times a n (PRESERVISION AREDS-2 day. ORAL) documented as of this encounter H&P Notes Brandin Kruger M.D. - 12/02/2015 8:36 AM CST [id number] Preventive medicine with acute problems. The patient presents today for preventive medicine. She has these acute problems: 1. Malaise and fatigue. The patient is experiencing some malaise and fatigue. She is not very concerned about this. She feels it is probably constitutional or related to aging, but she wants to be surethere are no metabolic abnormalities. 2. Patient has elevated cholesterol. They are taking medication to lower the cholesterol. We will check laboratories today to assess their control. 3. AODM. She is due for all her laboratories but has had excellent control. She is going to a very nice diabetic control program in [place] where she is offered A1c's, lipid panels as part of the cost of enrollment and so she is going to have those in the next week. I will not order either of thosetests as she will get them as part of her course. She will then fax the results to us. 4. Obsessive compulsive disorder, well managed with her medications, depakote. 5. 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 6. Hypertension, under good control with no evidence of target organ damage or clinical cardiovascular disease. MEDICATIONS Per EMR. ALLERGIES Per EMR. SYSTEMS REVIEW In all areas except as mentioned above is negative. PAST MEDICAL/SURGICAL HISTORY 1. Hypertension. 2. AODM. 3. 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 4. Obsessive compulsive disorder. 5. Dyslipidemia. 6. DJD. SOCIAL HISTORY She is . She used to drink very heavily but has completely stopped. She does not use tobacco. FAMILY HISTORY She has no first-degree relative with a history of colorectal cancer but does have a history of adenomatous polyps personally and so is on a 5-year program for colonoscopy. No history of breast cancer,cervical, ovarian or uterine cancer in the family. PHYSICAL EXAMINATION EENT: Conjunctivae and lids normal. PERRLA. EOMs normal. Sclerae nonicteric. Ophthalmologic exam grossly normal. TMs look okay bilaterally. Nares without erythema or congestion. Mouth without erythema or exudate, no leuko or erythroplakia. Hearing grossly normal to scratch test bilaterally. [place] teeth top and bottom. 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 NECK: Supple, no adenopathy or thyromegaly. Carotid upstrokes plus 2 bilaterally, no bruits. CHEST: Lung beebe clear to auscultation and percussion with normal respiratory rate and effort. BREASTS: Palpation of the breasts is without mass or discharge, there is no axillary supraclavicularadenopathy, there is no nipple inversion, or dimpling of the skin. CARDIAC: Central venous pressure is normal at 7 to 8 cm of water or less; there is a normal systoliccollapse of the jugular venous pulse; there is not a positive hepatojugular reflex. Heart tones are in sinus rhythm; S1 and S2 normal, physiologic splitting of the second heart tone, no third or fourthsound, no significant murmur, no gallop. ABDOMEN: Soft and nondistended. No organomegaly. No focal mass or tenderness. PERIPHERAL VASCULAR: There are good femoral, popliteal and dorsalis pedis pulses bilaterally; no bruits over the femoral arteries. GENITOURINARY AND RECTAL: Deferred. EXTREMITIES: Warm, dry, and noncyanotic without clubbing or peripheral edema. NEUROLOGIC: Cranial nerves II to XII are grossly intact. Reflexes in the upper and lower extremitiesare bilaterally symmetric. Toes are downgoing. There is no dysmetria. Gait is normal. Diabetic lighttouch filament examination of the feet is normal. IMPRESSION/REPORT/PLAN 1. Adult-onset diabetes mellitus. Her control has been good. She meets all components of [place] Community Measures. Is going to have her A1c and lipid panel at her class and she will fax those to us. 2. Dyslipidemia. Patient is on medication to lower the cholesterol. Labs are ordered today to assessfor side effects and that they have met the goals. 3. Hypertension, meeting goals. Check electrolytes today. 4. Obsessive compulsive behavior. For the time being keep the Depakote going well and leave it in place as this controls her extremely nicely. 5. Moderate obesity. The patient needs to work on diet and exercise and she is going to be doing this through the class she has in [place]. 6. Inactive problems. Please see past medical history. HEALTH MAINTENANCE CONCERNS Instructed to have a complete physical examination once a year, to see an guest relations receptionist or mid level developer once a year for glaucoma screening, and see the dentist at least once or twice a year. Instructed to wear seatbelts when in a motor vehicle . Questioned about symptoms of domestic abuse and there are none. She will have mammograms performed once a year and she will do breast self- examinations oncea month. She was instructed in the principles of breast self- examination and demonstrated competencyin the office. The patient was recommended to drink at least 6 glasses of plain water each day, have6 servings of fruits and vegetables each day, and get good aerobic exercise. I also recommended she take a generic multivitamin without iron once a day. With laboratories and studies scheduled, she will be up to date on everything. We will be needing her A1c and lipid panel from the class that she is at and she is reminded to send that to us. Her laboratories today were an ALT, a BMP, a hemoglobin, athyroid function cascade, a urine microalbumin and a UA with reflex to culture. Study scheduled is amammogram. We will call her with test results. Brandin Kruger M.D./cipriano Electronically Signed By: BRANDIN KRUGER MD On: 12/02/2015 04:17 PM Modified by and Electronically Signed by: BRANDIN KRUGER MD On: 12/02/2015 04:17 PM Source: [facility] [id number] Document Id: [id number] NICAL COMMUNICATOR documented in this encounter Miscellaneous Notes Miscellaneous - Chapito Wilkes R.N. - 11/08/2016 11:06 AM CST refill request - Divalproex Document Contains Addenda Addendum by BRANDIN KRUGER MD on November 08, 2016 12:22:35 TECHNICAL COMMUNICATOR From: BRANDIN KRUGER MD Sent: 11/08/2016 12:22:35 TECHNICAL COMMUNICATOR Subject: RE:refill request - Divalproex Approved Order:divalproex sodium (Depakote 500 mg oral delayed release tablet) See Instructions 1 tab(s) PO in the AM and 2 tabs in the PM Due for Annual Physical Qty: 270 tab(s) Refills: 0 Substitutions Allowed Route To Pharmacy - [facility] #[id number] Signed by BRANDIN KRUGER MD 11/08/2016 12:22:27 From: CHAPITO WILKES RN ([facility] Medication Refill) To: BRANDIN KRUGER MD; Sent: 11/08/2016 11:06:43 TECHNICAL COMMUNICATOR Subject: refill request - Divalproex On hold pending signature Order:divalproex sodium (Depakote 500 mg oral delayed release tablet) See Instructions 1 tab(s) PO in the AM and 2 tabs in the PM Due for Annual Physical Qty: 270 tab(s) Refills: 0 Substitutions Allowed Route To Pharmacy - [facility] #[id number] Caller is: ( _ ) Patient ( _ ) Mother ( _ ) Father ( _ ) Spouse ( _ ) Daughter ( _ ) Son ( x ) Pharmacy ( _ ) Other: _ Provider: Saskia Pharmacy: [facility] Name of Medications Needing Refill: Divalproex Last Refill Date: 07/19/16 Additional Information: Direct to provider medication. Last / Future Appointment: 12/02/15 Disposition: ( x ) Send to Pharmacy ( _ ) Call to Pharmacy ( _ ) Patient will draft roller picker Script ( _ ) Mail Rx to Patient Source: [facility] POWERCHART Document Id: [id number] Telephone Encounter - Conversion, Historical Provider Ser - 04/13/2016 4:25 PM CDT *Phone Message/dr brandin kruger Document Contains Addenda Addendum by IRVIN SALINAS LPN on April 14, 2016 07:45:03 CDT From: IRVIN SALINAS LPN ( Brandin Kruger Nurse) To: BRANDIN KRUGER MD; Sent: 04/14/2016 07:45:03 CDT Subject: FW: *Phone Message/dr brandin kruger wants to cahange to metformin ER 1000mg daily From: PAULA ZENG ( [employer] 60 Wind Tunnel Technician) To: GRZEGORZ Kruger Nurse; Sent: 04/13/2016 16:25:33 CDT Subject: *Phone Message/dr brandin kruger Caller is: ( x ) Patient ( ) Mother ( ) Father ( ) Spouse ( ) Daughter ( ) Son ( ) Pharmacy ( ) Other: Physician: Patient MRN #: Reason for Call: [facility] didn't have record of the prescription for diabetes, for time release medication. any questions [phone]. Message: Advice/Action: Source used: ( ) Verbalizes understanding [...] back cell phone number ( ) Source: [facility] Perfect Document Id: [id number] Miscellkonrad - Lucio Mittal L.P.N. - 12/25/2015 11:20 AM CST Quality Measures Quality Measures Entered On: 01/12/2016 11:21 TECHNICAL COMMUNICATOR Performed On: 12/25/2015 11:20 TECHNICAL COMMUNICATOR by LUCIO MITTAL LPN Labs Outside Lab Hgb A1c : 7.2 % LUCIO MITTAL LPN - 01/12/2016 11:20 TECHNICAL COMMUNICATOR Source: [facility] Perfect Document Id: [id number] TECHNICAL COMMUNICATOR!3 NICAL COMMUNICATOR Brandin Malik M.D. - 12/03/2015 10:07 AM CST Results Notification Document Contains Addenda Addendum by IRVIN SALINAS LPN on 03 December 2015 10:24:12 TECHNICAL COMMUNICATOR called with results From: BRANDIN KRUGER MD To: Brandin Kruger Nurse; Sent: 12/03/2015 10:07:24 TECHNICAL COMMUNICATOR ! Show up: 12/03/2015 10:07:24 TECHNICAL COMMUNICATOR Subject: Results Notification Actions: Notify patient of results Reminder Comments: reflex OK Results: Date Result Name Ind Value Ref Range 12/02/2015 09:15 TSH, Sensitive-Scott (H) 5.2 mIU/L (0.3-4.2 - ) Source: [facility] Perfect Document Id: [id number] Miscellaneous - Brandin Kruger M.D. - 12/03/2015 9:12 AM CST Results Notification From: BRANDIN KRUGER MD To: Brandin Kruger Nurse; Sent: 12/03/2015 09:12:12 TECHNICAL COMMUNICATOR ! Show up: 12/03/2015 09:12:12 TECHNICAL COMMUNICATOR Subject: Results Notification Actions: Notify patient of results Reminder Comments: go no further Results: Date Result Type Ind Result Name MBO Review Culture Urine Source: [facility] Perfect Document Id: [id number] Telephone Encounter - Conversion, Historical Provider Ser - 12/03/2015 9:10 AM CST *Phone Message/Moe Kruger Document Contains Addenda Addendum by IRVIN SALINAS LPN on 03 December 2015 09:17:43 TECHNICAL COMMUNICATOR From: IRVIN SALINAS LPN ( Brandin Kruger Nurse) To: BRANDIN KRUGER MD; Sent: 12/03/2015 09:17:43 TECHNICAL COMMUNICATOR Subject: FW: *Phone Message/Moe Kruger can you please order chol From: BRUNA MANN ( [employer] [facility] [place] [employer] Wind Tunnel Technician) To: GRZEGORZ Kruger Nurse; Sent: 12/03/2015 09:10:35 TECHNICAL COMMUNICATOR Subject: *Phone Message/Moe Kruger Caller is: (x ) Patient ( ) Mother ( ) Father ( ) Spouse ( ) Daughter ( ) Son ( ) Pharmacy ( ) Other: Physician: Patient MRN #: Reason for Call: Patient returned your call. She stated she is taking a diabetic class and they willbe doing an A1C but not a cholesterol test. She was wondering if that was done yesterday or if they can still run that? Please call her back at [phone]. Message: Advice/Action: Source used: ( ) Verbalizes understanding [...] back cell phone number ( ) Source: [facility] POWERCHART Document Id: [id number] Miscellaneous - Brandin Kruger M.D. - 12/02/2015 12:41 PM CST Results Notification Document Contains Addenda Addendum by IRVIN SALINAS LPN on 03 December 2015 08:41:33 TECHNICAL COMMUNICATOR called with results From: BRANDIN KRUGER MD To: GRZEGORZ Kruger Nurse; Sent: 12/02/2015 12:41:55 TECHNICAL COMMUNICATOR ! Show up: 12/02/2015 12:41:55 TECHNICAL COMMUNICATOR Subject: Results Notification Actions: Notify patient of results Reminder Comments: ok Results: Date Result Name Ind Value Ref Range 12/02/2015 09:28 U Albumin 87.9 mg/L 12/02/2015 09:28 U Creatinine 240.2 mg/dL 12/02/2015 09:28 U Alb/Creatinine Ratio (H) 37 mg/g (0 - 25) Source: [facility] [employer] [facility] Document Id: [id number] Electronically signed by Conversion, [facility] [id number] at 04/01/2017 7:25 AM CDT Miscellaneous - Brandin Kruger M.D. - 12/02/2015 11:20 AM CST Results Notification Document Contains Addenda Addendum by IRVIN SALINAS LPN on 03 December 2015 08:41:39 TECHNICAL COMMUNICATOR called with results From: BRANDIN KRUGER MD To: GRZEGORZ Kruger Nurse; Sent: 12/02/2015 11:20:51 TECHNICAL COMMUNICATOR ! Show up: 12/02/2015 11:20:51 TECHNICAL COMMUNICATOR Subject: Results Notification Actions: Notify patient of results Reminder Comments: ok Results: Date Result Name Ind Value Ref Range 12/02/2015 09:15 Sodium Lvl 143 mmol/L (135 - 145) 12/02/2015 09:15 Potassium Lvl 4.8 mmol/L (3.6 - 5.2) 12/02/2015 09:15 Chloride 100 mmol/L (98 - 107) 12/02/2015 09:15 CO2 (H) 31 mmol/L (22 - 29) 12/02/2015 09:15 AGAP 12 mmol/L (7 - 15) 12/02/2015 09:15 Glucose Fasting (H) 142 mg/dL (70 - 99) 12/02/2015 09:15 Creatinine 0.9 mg/dL (0.6 - 1.1) 12/02/2015 09:15 EGFR (MDRD) 60 mL/min/1.73m2 (>=60 - ) 12/02/2015 09:15 EGFR (MDRD) >60 mL/min/1.73m2 (>=60 - ) 12/02/2015 09:15 BUN (H) 22 mg/dL (6 - 21) 12/02/2015 09:15 Calcium Lvl 9.7 mg/dL (8.8 - 10.3) 12/02/2015 09:15 ALT 20 unit/L (7 - 45) Source: [facility] POWERCHART Document Id: [id number] Miscellaneous - Brandin Kruger M.D. - 12/02/2015 9:52 AM CST Results Notification Document Contains Addenda Addendum by IRVIN SALINAS LPN on 03 December 2015 08:41:46 TECHNICAL COMMUNICATOR called with results From: BRANDIN KRUGER MD To: GRZEGORZ Kruger Nurse; Sent: 12/02/2015 09:52:38 TECHNICAL COMMUNICATOR ! Show up: 12/02/2015 09:52:38 TECHNICAL COMMUNICATOR Subject: Results Notification Actions: Notify patient of results Reminder Comments: await reflex Results: Date Result Name Ind Value Ref Range 12/02/2015 09:28 UA Color Yellow (Colorless - ) 12/02/2015 09:28 UA Clarity Clear (Clear - ) 12/02/2015 09:28 UA Spec Grav 1.025 12/02/2015 09:28 UA pH 7.0 (<5.0 - ) 12/02/2015 09:28 UA Protein (*) 30 mg/dL (Negative - ) 12/02/2015 09:28 UA Glucose Negative mg/dL (Negative - ) 12/02/2015 09:28 UA Ketones Negative mg/dL (Negative - ) 12/02/2015 09:28 UA Bili Negative (Negative - ) 12/02/2015 09:28 UA Urobilinogen 1.0 mg/dL (0.2 - ) 12/02/2015 09:28 UA Blood Negative (Negative - ) 12/02/2015 09:28 UA Nitrite Negative (Negative - ) 12/02/2015 09:28 UA Leuk Est (*) Trace (Negative - ) 12/02/2015 09:28 UR WBC (*) 11-20 /HPF (None Seen - ) 12/02/2015 09:28 UR RBC Occ-2 /HPF (None Seen - ) 12/02/2015 09:28 UR Squamous Epi Cells (*) 4-10 /HPF (None Seen - ) 12/02/2015 09:28 UR Bacteria (*) Present (None Seen - ) Source: [facility] POWERCHART Document Id: [id number] Brandin Malik M.D. - 12/02/2015 9:22 AM CST Results Notification Document Contains Addenda Addendum by IRVIN SALINAS LPN on 03 December 2015 08:41:25 TECHNICAL COMMUNICATOR called with results From: BRANDIN KRUGER MD To: GRZEGORZ Kruger Nurse; Sent: 12/02/2015 09:22:24 TECHNICAL COMMUNICATOR ! Show up: 12/02/2015 09:22:24 TECHNICAL COMMUNICATOR Subject: Results Notification Actions: Notify patient of results Reminder Comments: ok Results: Date Result Name Value Ref Range 12/02/2015 09:15 Hgb 14.9 g/dL (12.0 - 15.5) [facility] Document Id: [id number] Jimmie - Irvin Salinas L.P.N. - 12/02/2015 8:50 AM CST PHQ-9 PHQ-9 Entered On: 12/02/2015 8:50 TECHNICAL COMMUNICATOR Performed On: 12/02/2015 8:50 TECHNICAL COMMUNICATOR by IRVIN SALINAS LPN PHQ-9 Little interest or pleasure in doing things : Not at all Feeling down, depressed, or hopeless : Not at all Trouble falling or staying asleep, or sleeping too much : Not at all Feeling tired or having little energy : Not at all Poor appetite or overeating : Several days Feeling bad about yourself or that you are a failure : Not at all Trouble concentrating on things : Not at all Moving or speaking slowly; restless or fidgety : Not at all Thoughts that you would be better off /hurting self : Not at all PHQ-9 Calculated Score : 1 Problems make work, home, or dealing with others : Not difficult at all IRVIN SALINAS LPN - 12/02/2015 8:50 TECHNICAL COMMUNICATOR Source: [facility] Perfect Document Id: [id number] TECHNICAL COMMUNICATOR!13 NICAL COMMUNICATOR Miscellaneous - Irvin Salinas L.P.N. - 12/02/2015 8:50 AM CST [employer] Craftsman Intake/History Adult [employer] Craftsman Intake/History Entered On: 12/02/2015 8:51 TECHNICAL COMMUNICATOR Performed On: 12/02/2015 8:50 TECHNICAL COMMUNICATOR by IRVIN SALINAS LPN Intake Chief Complaint : complete exam Temperature Core : 36.1 DegC(Converted to: 97.0 DegF) (LOW) Peripheral Pulse Rate : 65 /min Respiratory Rate : 16 /min Heart Rhythm : Regular Systolic Blood Pressure : 132 mmHg Diastolic Blood Pressure : 70 mmHg NIBP Mean : 91 mmHg BP Location : Left upper extremity Blood Pressure Cuff Size : Large Height : 159 cm(Converted to: 5 ft 3 inch(es), 63 inch(es)) Actual Weight : 98 kg(Converted to: 216 lb 1 oz) Weight Source : Standing scale Dosing Weight Clinic : 98 kg Clinic BSA : 2.08 Body Mass Index : 38.76 kg/m2 IRVIN SALINAS LPN - 12/02/2015 8:50 TECHNICAL COMMUNICATOR General Info Information Given By : Patient Languages : German Is Patient Female and 13-50 no hysterectomy : No IRVIN SALINAS LPN - 12/02/2015 8:50 TECHNICAL COMMUNICATOR Subjective Pain Symptoms : No IRVIN SALINAS LPN - 12/02/2015 8:50 TECHNICAL COMMUNICATOR Dependent Habits Exposure to Tobacco Smoke : Other: former smoker Smoking Status : Former smoker Tobacco 2A : Yes Tobacco Use/Currently Using : No Tobacco Use/Last 30 Days : No Tobacco Use/Last 12 months : No IRVIN SALINAS LPN - 12/02/2015 8:50 TECHNICAL COMMUNICATOR Caffeine Use Grid Caffeine Use : Current Type : Coffee IRVIN SALINAS LPN - 12/02/2015 8:50 TECHNICAL COMMUNICATOR Recreational Drug Use Grid Drug Use : None IRVIN SALINAS LPN - 12/02/2015 8:50 TECHNICAL COMMUNICATOR Source: [facility] POWERCHART Document Id: [id number] TECHNICAL COMMUNICATOR!38 NICAL COMMUNICATOR Miscellaneous - Irvin Salinas L.P.N. - 12/02/2015 8:49 AM CST Health Assessment Health Assessment Entered On: 12/02/2015 8:49 TECHNICAL COMMUNICATOR Performed On: 12/02/2015 8:49 TECHNICAL COMMUNICATOR by IRVIN SALINAS LPN Health Assessment Complete Health Assessment Complete or Modified : Annual Health Assessment Annual Health Assessment Completed : Yes IRVIN SALINAS LPN - 12/02/2015 8:49 TECHNICAL COMMUNICATOR Nutrition Nutrition Risk Factors by History Adult : None IRVIN SALINAS LPN - 12/02/2015 8:49 TECHNICAL COMMUNICATOR Functional Current Daily Living Assistance : None IRVIN SALINAS LPN - 12/02/2015 8:49 TECHNICAL COMMUNICATOR Dependent Habits Exposure to Tobacco Smoke : Other: former smoker Smoking Status : Former smoker Tobacco 2A : Yes Tobacco Use/Currently Using : No Tobacco Use/Last 30 Days : No Tobacco Use/Last 12 months : No IRVIN SALINAS RADIATION ONCOLOGIST - 12/02/2015 8:49 TECHNICAL COMMUNICATOR Caffeine Use Grid Caffeine Use : Current Type : Coffee IRVIN SALINAS RADIATION ONCOLOGIST - 12/02/2015 8:49 TECHNICAL COMMUNICATOR Alcohol Use : No IRVIN SALINAS RADIATION ONCOLOGIST - 12/02/2015 8:49 TECHNICAL COMMUNICATOR Recreational Drug Use Grid Drug Use : None IRVIN SALINAS LPN - 12/02/2015 8:49 TECHNICAL COMMUNICATOR Psychosocial Domestic Abuse Concerns : None Behavioral Health Screen/Safety Assmt : No Taoism Preference : Protestant IRVIN SALINAS LPN - 12/02/2015 8:49 TECHNICAL COMMUNICATOR Advance Directive Advanced Directives : No Advance Directive Additional Information : No IRVIN SALINAS LPN 12/02/2015 8:49 TECHNICAL COMMUNICATOR Educ Needs Learning Style Preference Adult Grid Patient : Verbal explanation, Printed materials Family : Verbal explanation, Printed materials IRVIN SALINAS LPN - 12/02/2015 8:49 TECHNICAL COMMUNICATOR Source: [facility] POWERCHART Document Id: [id number] TECHNICAL COMMUNICATOR!34 NICAL COMMUNICATOR Miscellaneous - Brandin Kruger M.D. - 12/02/2015 8:45 AM CST Ambulatory Patient Summary [place] [id number] [facility] [place] [id number] Visit Information Name: FRANCES MEEK [facility] Number: [id number] Current Date: 12/02/2015 08:45:37 Physicians Attending Provider: BRANDIN KRUGER MD Primary Care Provider: BRANDIN KRUGER MD FRANCES MEEK has been given the following list of [...] tablet) 1 Tablet(s), Oral, once a day at supper atorvastatin (Lipitor 40 mg oral tablet) 1 Tablet(s), Oral, once a day (at bedtime) cyanocobalamin (Vitamin B12 1000 mcg oral tablet) 1 Tablet(s), Oral, 3 times a week divalproex sodium (Depakote) See Instructions 500mg in am and 1000mg in pm divalproex sodium (Depakote 500 mg oral delayed release tablet) See Instructions 1 tab(s) PO in the AM and 2 tabs in the PM lisinopril (lisinopril 40 mg oral tablet) 1 Tablet(s), Oral, once a day metFORMIN (metFORMIN 500 mg oral tablet) 1 Tablet(s), Oral, once a day multivitamin with minerals (Ocuvite Lutein oral tablet) 1 Tablet(s), Oral, once a day Stop Taking the Following Medications: Medication list as of 12-02-15 08:45 Attention: If you have any medications at home that are not on this list, DO NOT take them until youcontact your provider for clarification. Give a copy of your medication list to your primary care provider. Update your medication list any time medications or doses are changed and carry your medication list at all times in case of emergency. Electronically Signed By: Signed On: Your Allergies & Intolerances Substance Reaction Symptoms Category Comments No Known Allergies Your Problem List Problem Status Onset Comments Combined hyperlipidemia Active 04/11/2013 HTN [Hypertension] Active 04/11/2013 DM II (or NOS), controlled Active 04/11/2013 Alcoholism Pers Hx Active Disorder Obsessive Compulsive Personality (OCPD) Active Acidosis Renal Tubular Distal Active Fatigue NOS Active Your Upcoming Appointments Date Time Location Provider No Appointments found Attention: Contact your local Clinic if further appointment detail needed. Your High Blood Pressure Risk Factors Risk factors are things that make you more likely to have a disease or condition. Do you know your risk factors for high blood pressure? You cant do anything about some risk factors. But other risk factors are things that can be changed. Know what high blood pressure risk factors you have. Then find out what changes you can make to help control your risk for high blood pressure. Start with the changethat you think will be easiest for you. Risk Factors You Cant Control Though you cant change any of the things listed below, check off the ones that apply to you. The more boxes you check, the greater your risk for high blood pressure. Family History One or both of your parents or grandparents has had high blood pressure or heart disease. A close male relative had heart disease or a heart attack (also known as acute myocardial infarction, or AMI) before age 55. A close female relative had heart disease or a heart attack before age 65. Gender and Age Youre a man over age 55 or a postmenopausal woman. Risk Factors You Can Control There are plenty of risk factors for high blood pressure that you can control. Learn what these riskfactors are and then find out how to reduce your risk. Check the ones that apply to you. What You Eat Do you eat a lot of salty, fatty, fried, or greasy foods? If You Smoke Do you smoke cigarettes or cigars, chew tobacco, or dip snuff? How Active You Are Are you inactive most of the time at work and at home? Your Weight Has your doctor said that you are 15 or more pounds overweight? YourStress Level Do you often feel anxious, nervous, and stressed? ?? [id number] [facility], [address] [place] [address], [place] [address]. All rights reserved. This information is not intended as a substitute for professional medical care. Always follow your healthcare professional's instructions. Consider Using Patient Online Services Patient Online [...] if you dont have one. Go to [email or web address] and click on Create Your Account. Then, follow the directions to complete the online form. Youll be asked for your [facility] number which you can find at the top of this document. Your Goals/Additional instructions: This document has images extracted. Please consider using [employer] for all your patient education needs. Source: [facility] POWERCHART Document Id: [id number] NICAL COMMUNICATOR Miscellaneous - Brandin Kruger M.D. - 12/02/2015 8:45 AM CST Ambulatory Discharge Medication List [address] [id number] Visit Information Name: FRANCES MEEK [facility] Number: [id number] Visit Date: 12/02/2015 08:45:35 Attending Provider: BRANDIN KRUGER MD Primary Care [...] tablet) 1 Tablet(s), Oral, once a day at supper atorvastatin (Lipitor 40 mg oral tablet) 1 Tablet(s), Oral, once a day (at bedtime) cyanocobalamin (Vitamin B12 1000 mcg oral tablet) 1 Tablet(s), Oral, 3 times a week divalproex sodium (Depakote) See Instructions 500mg in am and 1000mg in pm divalproex sodium (Depakote 500 mg oral delayed release tablet) See Instructions 1 tab(s) PO in the AM and 2 tabs in the PM lisinopril (lisinopril 40 mg oral tablet) 1 Tablet(s), Oral, once a day metFORMIN (metFORMIN 500 mg oral tablet) 1 Tablet(s), Oral, once a day multivitamin with minerals (Ocuvite Lutein oral tablet) 1 Tablet(s), Oral, once a day Stop Taking the Following Medications: Medication list as of 12-02-15 08:45 Attention: If you have any medications at home that are not on this list, DO NOT take them until youcontact your provider for clarification. Give a copy of your medication list to your primary care provider. Update your medication list any time medications or doses are changed and carry your medication list at all times in case of emergency. Electronically Signed By: Signed On: Additional Information: Source: [facility] POWERCHART Document Id: [id number] NICAL COMMUNICATOR documented in this encounter Plan of Treatment Upcoming Encounters Date Type Specialty Care Team Description 09/27/2022 Office Visit Dermatology Marianela Braden M.D. [address] [place], [place] [phone] (Wo rk) documented as of this encounter Procedures Procedure Name Priority Date/Time Associated Comments Diagnosis BACTERIAL CULTURE, Routine 12/02/2015 9:42 Result s for this AEROBIC, URINE AM TECHNICAL COMMUNICATOR procedure are in the results section. URINALYSIS, MIDSTREAM, Routine 12/02/2015 9:28 Re sults for this WITH CULTURE IF AM TECHNICAL COMMUNICATOR procedure ar e in INDICATED the results section. ALBUMIN, RANDOM, U Routine 12/02/2015 9:28 Result s for this AM TECHNICAL COMMUNICATOR procedure are i n the results section. THYROID FUNCTION Routine 12/02/2015 9:15 Results for this CASCADE, S AM TECHNICAL COMMUNICATOR procedure are i n the results section. THYROID AUTOABS PROFILE, Routine 12/02/2015 9:15 Results for this S AM TECHNICAL COMMUNICATOR procedure are i n the results section. HEMOGLOBIN, B Routine 12/02/2015 9:15 Results for this AM TECHNICAL COMMUNICATOR procedure are i n the results section. ALANINE AMINOTRANSFERASE Routine 12/02/2015 9:15 Results for this (ALT), S/P AM TECHNICAL COMMUNICATOR procedure are i n the results section. T4 (THYROXINE), FREE, S Routine 12/02/2015 9:15 R esults for this AM TECHNICAL COMMUNICATOR procedure are i n the results section. BASIC METABOLIC PANEL, Routine 12/02/2015 9:15 Re sults for this S/P AM TECHNICAL COMMUNICATOR procedure are i n the results section. documented in this encounter Results Bacterial Culture, Aerobic, Urine (12/02/2015 9:42 AM TECHNICAL COMMUNICATOR) [facility] Method Time Signature Bacterial POWERCHART Culture, Aerobic, Urine HXFinal Mixed alex. No POWERCHART further studies unless notified. [facility] POWERCHART Microbiology laboratory [phone]. Specimen Anatomical Collection Method Collection Time Receive d Time (Source) Location / / Volume Laterality Urine, First 12/02/2015 9:42 AM 6 9:42 Voided TECHNICAL COMMUNICATOR AM TECHNICAL COMMUNICATOR Brandin Kruger M.D. LAB MICROBIOLOGY - GENERAL O RDERABLES Performing Organization Address City/State/ZIP Code Phon e Number POWERCHART (ABNORMAL) Urinalysis, Midstream, with culture if indicated (12/02/2015 9:28 AM TECHNICAL COMMUNICATOR) [facility] Method Time Signature Clarity Clear Clear POWERCHART HXUr Color Yellow Colorless POWERCHART Specific 1.025 POWERCHART [place], POCT, U pH, POCT, Urine 7.0 <5.0 POWERCHART Protein, Ur, 30 (A) Negative POWERCHART Dip MGDL Glucose Negative Negative POWERCHART MGDL Ketones, QL(U) Negative Negative POWERCHART MGDL HXBILIRUBIN Negative Negative POWERCHART HXBLOOD Negative Negative POWERCHART Leukocyte Trace (A) Negative POWERCHART Esterase HXNITRITE Negative Negative POWERCHART Urobilinogen 1.0 0.2 MGDL POWERCHART HXUR WBC. 11-20 (A) None Seen POWERCHART HPF HXUR RBC. Occ-2 None Seen POWERCHART HPF Squamous 4-10 (A) None Seen POWERCHART Epithelial HPF HXUR Bacteria, Present (A) None Seen POWERCHART Specimen (Source) Anatomical Collection Method Collection Time Re ceived Time Location / / Volume Laterality Urine, First 12/02/2015 9:28 AM Voided TECHNICAL COMMUNICATOR Brandin Kruger M.D. LAB URINE ORDERABLES Performing Organization Address City/[facility] Phon e Number POWERCHART (ABNORMAL) Microalbumin, Random, Urine (12/02/2015 9:28 AM TECHNICAL COMMUNICATOR) P athologist Signature HXU Albumin % 87.9 MGL POWERCHART Creatinine, 240.2 MGDL POWERCHART Random, U Albumin/Creatin 37 (H) 0 - 25 MGG POWERCHART ine Ratio Specimen (Source) Anatomical Collection Method Collection Time Re ceived Time Location / / Volume Laterality Urine 12/02/2015 9:28 AM TECHNICAL COMMUNICATOR Brandin Kruger M.D. LAB URINE ORDERABLES Performing Organization Address [facility] Code Phon e Number POWERCHART Hemoglobin (12/02/2015 9:15 AM TECHNICAL COMMUNICATOR) athologist Signature Hemoglobin 14.9 12.0 - 15.5 POWERCHART GDL Specimen (Source) Anatomical Collection Method Collection Time Re ceived Time Location / / Volume Laterality Blood 12/02/2015 9:15 AM TECHNICAL COMMUNICATOR Brandin Kruger M.D. LAB BLOOD ADD-ON Performing Organization Address [facility] Phon e Number POWERCHART Thyroid Autoantibodies Profile (12/02/2015 9:15 AM TECHNICAL COMMUNICATOR) [facility] gist Method Time Signature Thyroperoxidase Ab, 1.0 <9.0 POWERCHART S INTUML Comment: Test Performed by: [place] [address] Car Mechanic: Mauro Springer II, M.D., Ph.D. Specimen Anatomical Collection Method Collection Time Receive d Time (Source) Location / / Volume Laterality Blood 12/02/2015 9:15 AM 6 8:14 TECHNICAL COMMUNICATOR AM TECHNICAL COMMUNICATOR Historical Provider LAB BLOOD NON ADD-ON Performing Organization Address City/[facility]/ZIP Code Phon e Number POWERCHART T4 (Thyroxine), Free (12/02/2015 9:15 AM TECHNICAL COMMUNICATOR) athologist Signature T4 (Thyroxine), 1.3 0.9 - 1.7 POWERCHART Free, S NGDL Comment: Test Performed by: [place] [address] Car Mechanic: Mauro Springer II, M.D., Ph.D. Specimen Anatomical Collection Method Collection Time Receive d Time (Source) Location / / Volume Laterality Blood 12/02/2015 9:15 AM 6 7:20 TECHNICAL COMMUNICATOR AM TECHNICAL COMMUNICATOR Historical Provider LAB BLOOD ADD-ON Performing Organization Address [facility] Phon e Number POWERCHART (ABNORMAL) Thyroid Function [place] (12/02/2015 9:15 AM TECHNICAL COMMUNICATOR) athologist Signature TSH, Sensitive 5.2 (H) 0.3 - 4.2 POWERCHART MIUL Comment: Test Performed by: [place] [address] Car Mechanic: Mauro Springer II, M.D., Ph.D. Specimen (Source) Anatomical Collection Method Collection Time Re ceived Time Location / / Volume Laterality Blood 12/02/2015 9:15 AM TECHNICAL COMMUNICATOR Brandin Kruger M.D. LAB BLOOD ADD-ON Performing Organization Address [facility]/ZIP Code Phon e Number POWERCHART (ABNORMAL) BMP (Basic Metabolic Panel) (12/02/2015 9:15 AM TECHNICAL COMMUNICATOR) athologist Signature Anion Gap 12 7 - 15 POWERCHART MMOLL BUN (Blood Urea 22 (H) 6 - 21 POWERCHART Nitrogen), S MGDL Chloride, S 100 98 - 107 POWERCHART MMOLL CO2 Total 31 (H) 22 - 29 POWERCHART MMOLL Creatinine 0.9 0.6 - 1.1 POWERCHART MGDL Glucose, 142 (H) 70 - 99 POWERCHART Fasting, S MGDL Calcium, Total, 9.7 8.8 - 10.3 POWERCHART S MGDL Sodium, S 143 135 - 145 POWERCHART MMOLL Potassium, S 4.8 3.6 - 5.2 POWERCHART MMOLL HXeGFR (MDRD) 60 >=60 POWERCHART [id number] eGFR >60 >=60 POWERCHART Black/ [id number] Ghanaian Specimen (Source) Anatomical Collection Method Collection Time Re ceived Time Location / / Volume Laterality Blood 12/02/2015 9:15 AM TECHNICAL COMMUNICATOR Brandin Kruger M.D. LAB BLOOD ADD-ON Performing Organization Address City/State/ZIP Code Phon e Number POWERCHART ALT (Alanine Aminotransferase) (12/02/2015 9:15 AM TECHNICAL COMMUNICATOR) P athologist Signature Alanine 20 7 - 45 POWERCHART Amniotransferas UNITL e, LD Specimen (Source) Anatomical Collection Method Collection Time Re ceived Time Location / / Volume Laterality Blood 12/02/2015 9:15 AM TECHNICAL COMMUNICATOR Brandin Kruger M.D. LAB BLOOD ADD-ON Performing Organization Address City/State/ZIP Code Phon e Number POWERCHART documented in this encounter Visit Diagnoses Not on filedocumented in this encounter Additional Health Concerns Assessment Noted Time PHQ-9 Depression Total Score: 1 12/02/2015 8:50 AM TECHNICAL COMMUNICATOR documented as of this encounter
--- OUTSIDE RECORDS SUMMARY | 2022-08-14 22:58 | XMS_ITS | Encounter Summary ---
:1945 Author Organization [facility] Address [address] [place] [address] Care Team Providers Name Role Phone Elsewhere, Pcp Primary Care Provider Unavailable Reason for Visit Reason Comments Follow-up Outpatient (Routine) - Closed Specialty Diagnoses / Procedures Referred By Contact Refer red To Contact Dermatology Marianela Braden M.D . [facility] [address] [place] [phone] Referral ID Status Reason Start Date Expiration Date Visits Requ ested Visits Authorized [id number] Closed 07/29/2019 07/28/2020 1 1 Encounter Details Date Type Department Care Team Description 11/11/2019 Office Visit Department of Marianela Braden, Keratosis Actinic (Primary Dx); Dermatology in [place] Keratosis Seborrheic; [place], [place] [address] [facility] Verrucal Keratosis; [address] [place] [address] Cancer Skin Basal [place] [phone] Social History Tobacco Use Types Packs/Day Years Used Date Smoking Tobacco: Unknown Smokeless Tobacco: Never Sex Assigned at Date Recorded Not on file documented as of this encounter Progress Notes Marianela Braden M.D. - 11/11/2019 11:15 AM CST CHIEF COMPLAINT/REASON FOR VISIT Recheck actinic keratoses HISTORY OF PRESENT ILLNESS Ms. Jessica Meek is a 73 y.o. female who presents for a recheck of actinic keratoses. During our last visit on 07/23/19, we treated three actinic keratoses involving the distal nasal tip and left cheek with liquid nitrogen cryotherapy. We are also following a lesion involving the left medial calf, said to be a verrucal keratosis versus irritated seborrheic keratosis. The patient has??a history of??basalcell carcinoma involving the right jainism, status post Mohs surgery in June 2013 at [facility]. She denies a personal history of melanoma. Her brother has had melanoma. The patient has no other concerns today. Allergies Allergen Reactions ??? Cat Dander Other (see comments) Runny nose itchy eyes ??? Pollen Extracts Other (see comments) Runny nose, itchy eyes PAST MEDICAL HISTORY 1. Basal cell carcinoma involving right jainism, status post Mohs surgery in June 2013 at [facility] 2. Negative for melanoma ?? FAMILY HISTORY Melanoma in brother PHYSICAL EXAM General: Awake, alert, in no acute distress, and with appropriate affect. Skin: Examination of the left distal nasal bridge reveals an actinic keratosis. Examination of the left medial calf reveals a 1.8 cm x 1.1 cm slightly erythematous scaly plaque, compatible with a verrucal keratosis versus seborrheic keratosis. Examination of the right jainism/ forehead reveals no evidence for recurrence of basal cell carcinoma. IMPRESSION/REPORT/PLAN #1 Left distal nasal bridge: Actinic keratosis x1 CONSENT Discussed the risks, benefits, alternatives, and the necessity of other members of the healthcare team participating in the procedure. All questions answered and consent given. PROCEDURE INFORMATION Given the precancerous nature of this lesion(s), treatment is medically indicated. After discussion of the risks, benefits and alternatives to treatment with cryotherapy, informed consent was obtained.We treated a total of 1 lesion(s) with two 5-second freeze-thaw cycles of liquid nitrogen cryotherapy. The patient tolerated the procedure well. Aftercare instructions were provided in written and verbal form to the patient. Should any of these lesions recur, the patient should return for biopsy or further evaluation. Follow up in 1-2 months for recheck if these areas do not complete resolve. 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 No treatment is required. I recommend continued observation. Should symptoms or changes develop related to this condition, I would recommend a return visit for reassessment. #3 Right jainism: History of basal cell carcinoma, status post Mohs surgery in June 2013 at [facility] No clinical evidence of local recurrence today. [...] Marianela Braden M.D. Electronically Signed: nay Virk. 11/11/2019. 11:13 AM ADDICTION THERAPIST. IMarianela M.D., personally performed the services described in this documentation. All medical record entries made by the scribe were at my direction and in my presence. I have reviewed the chart and discharge instructions (if applicable) and agree that the record reflects my personal performance and is accurate and complete. Marianela Braden M.D. . 11/11/2019. 11:27 AM ADDICTION THERAPIST. CTION THERAPIST documented in this encounter Plan of Treatment Upcoming Encounters Date Type Specialty Care Team Description 09/27/2022 Office Visit Dermatology Marianela Braden M.D. [address] [place], [place] [phone] (Wo rk) documented as of this encounter Visit Diagnoses Diagnosis Keratosis Actinic - Primary Keratosis Seborrheic Verrucal Keratosis Cancer Skin Basal Cell Personal History documented in this encounter Additional Health Concerns Assessment Noted Time PHQ-9 Depression Total Score: 1 12/02/2015 8:50 AM ADDICTION THERAPIST documented as of this encounter Care Teams Environmental Sampling Technician Relationship Specialty Start Date End Date Elsewhere, Pcp PCP - General Family Medicine 01/30/19 documented as of this encounter
--- OUTSIDE RECORDS SUMMARY | 2022-08-14 22:58 | XMS_ITS | Encounter Summary ---
:1945 Author Organization [facility] Address [address] [place] [address] Care Team Providers Name Role Phone Naren Kruger M.D. Primary Care Provider Encounter Details Date Type Department Care Team Description 04/30/2018 Orders Only Department of Naren Kruger Diabetes Me llitus Type 2 (HCC) (Primary Dx); [facility] Arian Bianchi M.D. Screening Mammogram Average Risk Patient Medicine in [address] [facility] [address] [place], [place] [phone] (Work) [phone] Social History Tobacco Use Types Packs/Day Years Used Date Smoking Tobacco: Unknown Sex Assigned at Date Recorded Not on file documented as of this encounter Plan of Treatment Upcoming Encounters Date Type Specialty Care Team Description 09/27/2022 Office Visit Dermatology Marianela Braden M.D. [address] [place], [place] [phone] (Wo rk) documented as of this encounter Visit Diagnoses Diagnosis Diabetes Mellitus Type 2 (HCC) - Primary Screening Mammogram Average Risk Patient documented in this encounter Additional Health Concerns Assessment Noted Time PHQ-9 Depression Total Score: 1 12/02/2015 8:50 AM PAINTER ORDNANCE documented as of this encounter Care Teams Managing Member Relationship Specialty Start Date End Date Naren Kruger M.D. PCP - General 04/20/17 06/28/18 [address] [place] [address] documented as of this encounter
--- OUTSIDE RECORDS SUMMARY | 2022-08-14 22:58 | XMS_ITS | Encounter Summary ---
:1945 Author Organization [facility] Address [address] [place] [address] Care Team Providers Name Role Phone Unavailable Primary Care Provider Unavailable Encounter Details Date Type Department Care Team Description 08/01/2016 Hospital Encounter HX [facility] Jairo Mix M.D. [address] [place] [address] 021 (Wo rk) Social History Tobacco Use [...] Encounter - Conversion, Historical Provider Ser - 09/07/2016 9:23 AM CDT *Phone Message Document Contains Addenda Addendum by IRVIN SMITH LPN on September 07, 2016 09:50:36 CDT patient called asking about last complete exam she id due beginning of Dec 2016 From: MICHELLE DICK (GRZEGORZ Kruger Nurse) To: GRZEGORZ Kruger Nurse; Sent: 09/07/2016 09:23:54 CDT Subject: *Phone Message Caller is: ( x) Patient ( ) Mother ( ) Father ( ) Spouse ( ) Daughter ( ) Son ( ) Pharmacy ( ) Other: Physician: Patient MRN #: Reason for Call: Message: patient calling- calling regarding her last phys- has questions- call her back at [phone] Advice/Action: Source used: ( ) Verbalizes understanding [...] back cell phone number ( ) [facility] Document Id: [id number] Miscellaneous - Lashanda Marks M.D. - 08/01/2016 1:50 PM CDT Results Notification From: LASHANDA MARKS MD To: BRANDIN KRUGER MD; Sent: 08/01/2016 13:50:41 CDT ! Show up: 08/01/2016 13:50:41 CDT Subject: Results Notification Actions: Notify patient of results Results: Date Result Name Ind Value Ref Range 08/01/2016 10:23 Hgb A1c (H) 7.4 % A1C ( - <=5.6) [facility] Document Id: [id number] Electronically signed by Conversion, [facility] Mold Repairer [id number] at 04/02/2017 4:24 AM CDT documented in this encounter Plan of Treatment Upcoming Encounters Date Type Specialty Care Team Description 09/27/2022 Office Visit Dermatology Marianela Braden M.D. [address] [place], [place] [phone] (Wo rk) documented as of this encounter Procedures Procedure Name Priority Date/Time Associated Diagnosis Comme nts HEMOGLOBIN A1C, B Routine 08/01/2016 10:23 AM Res ults for this CDT procedure are i n the results section. documented in this encounter Results (ABNORMAL) Hemoglobin A1c (08/01/2016 10:23 AM CDT) P athologist Signature Hemoglobin A1c, 7.4 (H) <=5.6 A1C POWERCHART B Specimen (Source) Anatomical Collection Method Collection Time Re ceived Time Location / / Volume Laterality Blood 08/01/2016 10:23 AM CDT Lashanda Marks M.D. LAB BLOOD ADD-ON Performing Organization Address City/State/ZIP Code Phon e Number POWERCHART documented in this encounter Visit Diagnoses Not on filedocumented in this encounter Additional Health Concerns Assessment Noted Time PHQ-9 Depression Total Score: 1 12/02/2015 8:50 AM WRITER PRODUCER documented as of this encounter
--- OUTSIDE RECORDS SUMMARY | 2022-08-14 22:58 | XMS_ITS | Encounter Summary ---
:1945 Author Organization [facility] Address [address] [place] [address] Care Team Providers Name Role Phone Brandin Kruger M.D. Primary Care Provider Encounter Details Date Type Department Care Team Description 06/05/2017 Hospital Encounter HX [facility] INTERNMED Jairo Kruger M.D. [address] [place] [address] 021 (Wo rk) Social History Tobacco Use Types Packs/Day Years Used Date Smoking Tobacco: Former Sex Assigned at Date Recorded Not on file documented as of this encounter Last Filed Vital Signs Vital Sign Reading Time Taken Comments Blood Pressure 138/60 06/05/2017 2:26 PM CDT Pulse 76 06/05/2017 2:26 PM CDT Temperature - - Respiratory Rate 16 06/05/2017 2:26 PM CDT Oxygen Saturation - - Inhaled Oxygen Concentration - - Weight 99.3 kg (218 lb 14.7 oz) 06/05/2017 2:26 PM CDT Height 160.5 cm (5' 3.19) 06/05/2017 2:26 PM CDT Body Mass Index 38.55 06/05/2017 2:26 PM CDT documented in this encounter Medications [...] 50 mg Take 1 tablet by 0 03/0706/28/2022 tablet mouth daily. glipiZIDE (GLUCOTROL) 5 Take 1 tablet by 0 201607/29/2019 mg tablet mouth daily. documented as of this encounter Progress Notes Brandin Kruger M.D. - 06/05/2017 2:13 PM CDT [id number] CHIEF COMPLAINT/REASON FOR VISIT Disequilibrium. The patient has always had a certain amount of disequilibrium. It has now worsened. She states categorically she is no longer drinking. She would like a handicap sticker and she does use a cane and shewould like a walker with wheels and a seat. I will evaluate her for this. The patient says she has trouble standing steady without a support and that at the minimum she needs a cane and feels more comfortable if she had a walker. She otherwise is feeling reasonably well. She does not have any angina, orthopnea, PND or palpitation. She is not complaining at the moment of vertigo. Complains of diffuse disequilibrium when not supported. MEDICATIONS Per EMR. ALLERGIES Per EMR. SYSTEMS REVIEW Completed review of systems is obtained is negative except as mentioned above. PAST MEDICAL/SURGICAL HISTORY 1. Distal type 4 RTA. 2. AODM which is controlled, type 2. 3. Malaise and fatigue. 4. Hypertension. 5. History of hyponatremia. 6. Mixed dyslipidemia. 7. History of alcoholism but currently dry. FAMILY HISTORY/SOCIAL HISTORY She is . She does not smoke and does not drink by her report. PHYSICAL EXAMINATION VITAL SIGNS: Temperature is 36.6, heart rate 76, respiratory rate 16, blood pressure 138/60, BMI 38.55. HEENT: Eyes: Conjunctivae and lids normal. Pupils [...] fourthsound, no significant murmur, no gallop. ABDOMEN: Soft, nondistended. No organomegaly. No focal mass or tenderness. EXTREMITIES: Warm, dry, noncyanotic. No clubbing or peripheral edema. NEUROLOGICALLY: Cranial nerves are grossly intact. Reflex in the upper and lower extremities bilaterally symmetric. She has positive ataxia when walking with wide-based gait and unsteadiness. She gripsto furniture to support herself. She has positive Romberg, specific cerebellar signs however with her hands and feet with rapid alternating motions are negative. IMPRESSION/REPORT/PLAN Neurologically she is ataxic and has disequilibrium. Etiology is somewhat unclear but certainly she does qualify for a walker and I will write that for her. Secondly, using either walker or a cane she qualifies for a handicap sticker and I will write that for her as well. She does not wish to go further in terms of investigation by seeing a neurologist or such and for the time being will hold that. Chito find her deficits rather impressive however. The patient will follow up as needed. She is doing physical therapy to do balance training and we did write for a handicap sticker and a walker with wheels and a seat. Brandin Kruger M.D./cipriano Electronically Signed By: BRANDIN KRUGER MD On: 06/05/2017 03:37 PM Source: [facility] MHSDOLBEYNONRADSYS Document Id: [id number] documented in this encounter Miscellaneous Notes Miscellaneous - Brandin Kruger M.D. - 06/05/2017 2:42 PM CDT Ambulatory Patient Summary [address] [id number] Visit Information Name: FRANCES HAGER [facility] Number: [id number] Current Date: 06/05/2017 14:42:39 Physicians Attending Provider: BRANDIN KRUGER MD Primary [...] the Following Medications: Medication list as of 06-05-17 14:42 Attention: If you have any medications at [...] Electronically Signed By: BRANDIN KRUGER MD Signed On:05-JUN-2017 14:41:33 Your Allergies & Intolerances Substance Reaction Symptoms [...] if you dont have one. Go to [email or web address] and click on Create Your Account. Then, follow the directions to complete the online form. Youll be asked for your [facility] number which you can find at the top of this document. Your Goals/Additional instructions: Source: [facility] POWERCHART Document Id: [id number] Miscellaneous - Brandin rKuger M.D. - 06/05/2017 2:42 PM CDT Ambulatory Discharge Medication List [address] [id number] Visit Information Name: FRANCES HAGER [facility] Number: [id number] Current Date: 06/05/2017 14:42:38 Attending Provider: BRANDIN KRUGER MD Primary Care [...] the Following Medications: Medication list as of 06-05-17 14:42 Attention: If you have any medications at [...] Electronically Signed By: BRANDIN KRUGER MD Signed On:05-JUN-2017 14:41:33 Additional Information: Source: [facility] POWERCHART Document Id: [id number] Miscellaneous - Jacque Agee C.M.A. 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 Welder Intake/History Adult Oxyhydrogen Welder Intake/History Entered On: 06/05/2017 14:29 CDT Performed On: 06/05/2017 14:26 CDT by JACQUE AGEE [facility] Intake Chief Complaint : 1: balance follow up, parking permit, rolling walker Temperature Core : 36.6 DegC(Converted to: 97.9 DegF) Peripheral Pulse Rate : 76 /min Respiratory Rate : 16 /min Systolic Blood Pressure : 138 mmHg Diastolic Blood Pressure : 60 mmHg NIBP Mean : 86 mmHg BP Location : Left upper extremity Blood Pressure Cuff Size : Regular Height : 160.5 cm(Converted to: 5 ft 3 inch(es), 63 inch(es)) Actual Weight : 99.3 kg(Converted to: 218 lb 15 oz) Weight Source : Standing scale Dosing Weight Clinic : 99.3 kg Clinic BSA : 2.1 Body Mass Index : 38.55 kg/m2 JACQUE AGEE [facility] - 06/05/2017 14:26 CDT General Info Information Given By : Patient Languages : Syriac Is Patient Female and 13-50 no hysterectomy : No JACQUE AGEE [facility] - 06/05/2017 14:26 CDT Subjective Pain Symptoms : Yes JACQUE AGEE [facility] - 06/05/2017 14:26 CDT Pain Scale Pain Scale Verbal 0-10 : Open JACQUE AGEE [facility] - 06/05/2017 14:26 CDT Pain Pain Assessment Grid Pain 1 Location : Lower back Laterality : Bilateral JACQUE AGEE [facility] - 06/05/2017 14:26 CDT Dependent Habits Exposure to Tobacco Smoke : Other: former smoker Smoking Status : Former smoker Tobacco 2A : Yes Tobacco Use/Currently Using : No Tobacco Use/Last 30 Days : No Tobacco Use/Last 12 months : No JACQUE AGEE CMA - 06/05/2017 14:26 CDT Caffeine Use Grid Caffeine Use : Current Type : Coffee JACQUE AGEE [facility] - 06/05/2017 14:26 CDT Recreational Drug Use Grid Drug Use : None JACQUE AGEE CMA - 06/05/2017 14:26 CDT [facility] Document Id: [id number] documented in this encounter Plan of Treatment Upcoming Encounters Date Type Specialty Care Team Description 09/27/2022 Office Visit Dermatology Marianela Braden M.D. 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 PCP - General 04/20/17 06/28/[address] [place] [id number] documented as of this encounter
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
--- OUTSIDE RECORDS SUMMARY | 2022-08-14 22:58 | XMS_ITS | Encounter Summary ---
:1945 Author Organization [facility] Address [address] [place] [address] Care Team Providers Name Role Phone Elsewhere, Pcp Primary Care Provider Unavailable Reason for Visit Appointment Request (Routine) - Closed Specialty Diagnoses / Procedures Referred By Contact Refer red To Contact Dermatology Referral ID Status Reason Start Date Expiration Date Visits Requ ested Visits Authorized [id number] Closed 05/06/2019 05/05/2020 1 Encounter Details Date Type Department Care Team Description 05/15/2019 Office Visit Department of Mehrdad Fletcher Acti nate Dermatology in Fred Blanco M.D. (Primary Dx) [facility] ta [address] [facility] [address] [place] [phone] Social History Tobacco Use Types Packs/Day Years Used Date Smoking Tobacco: Unknown Smokeless Tobacco: Never Sex Assigned at Date Recorded Not on file documented as of this encounter Progress Notes Mehrdad Fletcher M.D. - 05/15/2019 3:15 PM CDT CHIEF COMPLAINT/REASON FOR VISIT Skin lesion HISTORY OF PRESENT ILLNESS Ms. Jessica Meek is a 73 y.o. female who presents today for evaluation of a rough, scaly skin lesion involving the right upper eyelid. It is not itchy. The patient has??a history of??basal cell carcinoma involving her right latter day status post Mohs surgery at [facility] in June 2013. She denies a personal history of melanoma. Her brother has a history of melanoma. During her last full skin exam with Dr. Braden on 03/04/19, he biopsied a lesion involving the nasal tip. Dermatopathology returned as dilated telangiectasias, no tumor identified. Allergies Allergen Reactions ??? Cat Dander Other (see comments) Runny nose itchy eyes ??? Pollen Extracts Other (see comments) Runny nose, itchy eyes PAST MEDICAL HISTORY 1. Basal cell carcinoma involving her right latter day status post Mohs surgery at [facility] in June 2013 ?? FAMILY HISTORY Brother has history of melanoma PHYSICAL EXAM General: Awake, alert, in no acute distress, and with appropriate affect. Skin: Examination of the right upper eyelid reveals an actinic keratosis. IMPRESSION/REPORT/PLAN #1 Right upper eyelid: Actinic keratosis CONSENT Discussed the risks, benefits, [...] a total of 1 lesion(s) with two 20-second freeze-thaw cycles of liquid nitrogen cryotherapy. The patient tolerated the procedure well. Aftercare instructions were provided in written and verbal form to the patient. Should any of these lesions recur, the patient should return for biopsy or further evaluation. Follow up in 1-2 months for recheck if these do not completely resolve. PATIENT EDUCATION Ready to learn. No apparent learning barriers were identified. Learning preferences include listening. Explained diagnosis and treatment plan; patient/guardian of patient expressed understanding of thecontent. By signing my name below, IAmirah, attest that this documentation has been prepared under thedirection and in the presence of Mehrdad Fletcher M.D. Electronically Signed: nay George. 05/15/2019. 3:40 PM . IMehrdad MD personally performed the services described in this documentation. All medical record entries made by the scribe were at my direction and in my presence. I have reviewed the chart anddischarge instructions (if applicable) and agree that the record reflects my personal performance and is accurate and complete. Mehrdad Fletcher MD. documented in this encounter Plan of Treatment Upcoming Encounters Date Type Specialty Care Team Description 09/27/2022 Office Visit Dermatology Marianela Braden M.D. 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
--- OUTSIDE RECORDS SUMMARY | 2022-08-14 22:58 | XMS_ITS | Encounter Summary ---
:1945 Author Organization [facility] Address [address] [place] [address] Care Team Providers Name Role Phone Unavailable Primary Care Provider Unavailable Encounter Details Date Type Department Care Team Description 05/07/2015 Hospital Encounter HX [facility] INTERNMED Jairo Kruger M.D. [address] [place] [address] 021 (Wo rk) Social History Tobacco Use Types Packs/Day Years Used Date Smoking Tobacco: Never Assessed Sex Assigned at Date Recorded Not on file documented as of this encounter Last Filed Vital Signs Vital Sign Reading Time Taken Comments Blood Pressure 131/78 05/07/2015 1:21 PM CDT Pulse 60 05/07/2015 1:21 PM CDT Temperature - - Respiratory Rate 16 05/07/2015 1:21 PM CDT Oxygen Saturation - - Inhaled Oxygen Concentration - - Weight 96 kg (211 lb 10.3 oz) 05/07/2015 1:21 PM CDT Height 160 cm (5' 2.99) 05/07/2015 1:21 PM CDT Body Mass Index 37.5 05/07/2015 1:21 PM CDT documented in this encounter Medications at Time of Discharge Medication Sig Dispensed Refills Start Date End Date aspirin [address] tablet Take 1 tablet by mouth 0 03/14/2014 daily. documented as of this encounter Progress Notes Brandin Kruger M.D. - 05/07/2015 1:13 PM CDT [id number] Frances had an episode where she was getting out of her car. She was a little lightheaded and she grabbed on quickly to the car door and tore some tendons in the right hand. She has seen Dr. Brewer in [place]. He has put her in a brace and she is doing physical therapy. She has made good progress. I looked at that wrist and it is coming along very nicely. We talked a little bit about orthostasis. Her blood pressure is not low at baseline and she needs lindsay careful when she first stands up, shake her legs around, hold on, and get steady before going. She understands that. She is due for an A1c today and I will check that. Otherwise patient is doing very well and does notoffer any complaints. MEDICATIONS Per [facility] EMR. ALLERGIES Per [facility] EMR. SYSTEMS REVIEW Review of systems in all areas except as mentioned above is negative. PREVENTIVE SERVICES: Per [facility] EMR. Handwashing done prior to patient contact. PAST MEDICAL/SURGICAL HISTORY Per [facility] EMR. VITAL SIGNS Per [facility] EMR. PHYSICAL EXAMINATION Her right wrist is taken out of the brace. It can flex, extend. There is no tenderness over the joint sutures. She does have some carpometacarpal joint arthritis but I could not feel really any tendinitis at the moment. IMPRESSION/REPORT/PLAN 1. She has had a tendon strain in her wrist, is wearing a brace and doing physical therapy, and seeing the orthopedist. Follow along with them. 2. Mild orthostasis. Given pointers and tips about it. 3. Adult-onset diabetes mellitus. She is due for an A1c. She has very good control and does not needto be fasting for that, so we will do that today. We will call her with the results of the A1c and then she apparently has a physical scheduled sometime in late May, so we will see her next then. Brandin Kruger M.D./cipriano Electronically Signed By: BRANDIN KRUGER MD On: 05/07/2015 03:34 PM Source: [facility] MHSDOLBEYNONRADSYS Document Id: [id number] documented in this encounter Miscellaneous Notes Telephone Encounter - Conversion, Historical Provider Ser - 11/19/2015 9:05 AM CST *Phone Message Document Contains Addenda Addendum by SARAH IRVINPIERO HIGH LPN on 19 November 2015 09:15:34 MEDICAL ASSISTANT PER DIEM patient called will do labs at appt From: KONRAD HAJI (GR[facility] Carrasqu[place] Supervisor Area) To: GRZEGORZ Kruger Nurse; Sent: 11/19/2015 09:05:16 MEDICAL ASSISTANT PER DIEM Subject: *Phone Message Caller is: (x ) Patient ( ) Mother ( ) Father ( ) Spouse ( ) Daughter ( ) Son ( ) Pharmacy ( ) Other: Physician: Patient MRN #: Reason for Call: Patient has a question regarding lab tests next. Please call her [phone] Message: Advice/Action: Source used: ( ) Verbalizes [...] back cell phone number ( ) Source: [facility] POWERCHART Document Id: [id number] Miscellaneous - Shani Hanson, R.N. - 06/22/2015 2:29 PM CDT divaloprex Document Contains Addenda Addendum by SUDHA SHAH PA-C on 22 June 2015 17:29:43 CDT From: SUDHA SHAH PA-C To: GRZEGORZ Miller Medication Refill; Sent: 06/22/2015 17:29:43 CDT Subject: RE: divaloprex I gave her one month From: SHANI HANSON RN ([facility] Medication Refill) To: SUDHA SHAH PA-C; Sent: 06/22/2015 14:29:49 CDT Subject: divaloprex Caller is: ( ) Patient ( ) Mother ( ) Father ( ) Spouse ( ) Daughter ( ) Son ( [facility] ) Pharmacy ( ) Other: Provider: kavita kruger Pharmacy: Name of Medications Needing Refill: Divaloprex dr 500 mg tab1 tab po every am and 2 tabs po hs.... Last Refill Date: 03/20/15 qty 270 Additional Information: med in EMR as HX.... 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 - 05/07/2015 3:54 PM CDT Results Notification Document Contains Addenda Addendum by PRIMITIVO QUEEN on 07 May 2015 16:53:13 CDT pt notified From: BRANDIN RKUGER MD To: GRZEGORZ Kruger Nurse; Sent: 05/07/2015 15:54:31 CDT ! Show up: 05/07/2015 15:54:31 CDT Subject: Results Notification Actions: Notify patient of results Reminder Comments: very good Results: Date Result Name Ind Value Ref Range 05/07/2015 13:52 Hgb A1c (H) 6.3 % A1C ( - <=5.6) Source: [employer] Document Id: [id number] Electronically signed by Conversion, [facility] Straddle Bug Operator [id number] at 04/02/2017 5:50 PM CDT Brandin Malik M.D. - 05/07/2015 1:47 PM CDT Ambulatory Patient Summary [address], [place] [id number] Visit Information Name: FRANCES MEEK [facility] Number: [id number] Current Date: 05/07/2015 13:47:06 Physicians Attending Provider: BRANDIN KRUGER MD Primary [...] 500mg in am and 1000mg in pm lisinopril (lisinopril 40 mg oral tablet) 1 Tablet(s), Oral, once a day metFORMIN (metFORMIN 500 mg oral tablet) 1 Tablet(s), Oral, once a day multivitamin with minerals (Ocuvite Lutein oral tablet) 1 Tablet(s), Oral, once a day Stop Taking the Following Medications: Medication list as of 05-07-15 13:47 Attention: If you have any medications at [...] (OCPD) Active Acidosis Renal Tubular Distal Active Your Upcoming Appointments Date Time Location [...] often feel anxious, nervous, and stressed? ?? [phone] Ana Gilliam, [address] [place] [address], [place] [id number]. All rights reserved. This information is not [...] if you dont have one. Go to [email or web address] and click on Create Your Account. Then, follow the directions to complete the online form. Youll be asked for your [facility] number which you can find at the top of this document. Your Goals/Additional instructions: This document has images extracted. Please consider using [employer] for all your patient education needs. Source: [facility] POWERCHART Document Id: [id number] Miscellaneous - Brandin Kruger M.D. - 05/07/2015 1:47 PM CDT Ambulatory Discharge Medication List [address] [id number] Visit Information Name: FRANCES MEEK [facility] Number: [id number] Visit Date: 05/07/2015 13:47:05 Attending Provider: BRANDIN KRUGER MD Primary Care Provider: BRANDIN KRUGER MD MADAN FRANCES has been given the following list of [...] 500mg in am and 1000mg in pm lisinopril (lisinopril 40 mg oral tablet) 1 Tablet(s), Oral, once a day metFORMIN (metFORMIN 500 mg oral tablet) 1 Tablet(s), Oral, once a day multivitamin with minerals (Ocuvite Lutein oral tablet) 1 Tablet(s), Oral, once a day Stop Taking the Following Medications: Medication list as of 05-07-15 13:47 Attention: If you have any medications at [...] Signed By: Signed On: Additional Information: Source: [facility] POWERCHART Document Id: [id number] Miscellaneous - Irvin Salinas L.P.N. 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 Flatwork Finisher Intake/History Entered On: 05/07/2015 13:24 CDT Performed On: 05/07/2015 13:21 CDT by IRVIN SALINAS LPN Intake Chief Complaint : recheck after PT Temperature Core : 36 DegC(Converted to: 96.8 DegF) (LOW) Peripheral Pulse Rate : 60 /min Respiratory Rate : 16 /min Heart Rhythm : Regular Systolic Blood Pressure : 131 mmHg Diastolic Blood Pressure : 78 mmHg NIBP Mean : 96 mmHg BP Location : Left upper extremity Blood Pressure Cuff Size : Large Height : 160 cm(Converted to: 5 ft 3 inch(es), 63 inch(es)) Actual Weight : 96 kg(Converted to: 211 lb 10 oz) Weight Source : Standing scale Dosing Weight Clinic : 96 kg Clinic BSA : 2.07 Body Mass Index : 37.5 kg/m2 IRVIN SALINAS LPN - 05/07/2015 13:21 CDT General Info Information Given By : Patient Languages : Yoruba Is Patient Female and 13-50 no hysterectomy : No IRVIN SALINAS LPN - 05/07/2015 13:21 CDT Subjective Pain Symptoms : IRVIN Irizarry LPN - 05/07/2015 13:21 CDT Dependent Habits Tobacco Use/Currently Using : No Exposure to Tobacco Smoke : Other: former smoker Smoking Status : Never smoker IRVIN SALINAS LACE STRIPPER - 05/07/2015 13:21 CDT Caffeine Use Grid Caffeine Use : Current Type : Coffee IRVIN SALINAS LACE STRIPPER - 05/07/2015 13:21 CDT Recreational Drug Use Grid Drug Use : None IRVIN SALINAS LACE STRIPPER - 05/07/2015 13:21 CDT Source: [facility] POWERCHART Document Id: [id number] CDT!35 documented in this encounter Plan of Treatment Upcoming Encounters Date Type Specialty Care Team Description 09/27/2022 Office Visit Dermatology Marianela Braden M.D. [address] [place] [address] [phone] (Wo rk) documented as of this encounter Procedures Procedure Name Priority Date/Time Associated Diagnosis Comme nts HEMOGLOBIN A1C, B Routine 05/07/2015 1:52 PM Resu lts for this CDT procedure are i n the results section. documented in this encounter Results (ABNORMAL) Hemoglobin A1c (05/07/2015 1:52 PM CDT) P athologist Signature Hemoglobin A1c, 6.3 (H) <=5.6 A1C POWERCHART B Specimen (Source) Anatomical Collection Method Collection Time Re ceived Time Location / / Volume Laterality Blood 05/07/2015 1:52 PM CDT Brandin Kruger M.D. LAB BLOOD ADD-ON Performing Organization Address City/State/ZIP Code Phon e Number POWERCHART documented in this encounter Visit Diagnoses Not on filedocumented in this encounter Additional Health Concerns Assessment Noted Time PHQ-9 Depression Total Score: 3 05/05/2014 7:55 AM CDT documented as of this encounter
--- OUTSIDE RECORDS SUMMARY | 2022-08-14 22:58 | XMS_ITS | Encounter Summary ---
:1945 Author Organization [facility] Address [address] [place] [address] Care Team Providers Name Role Phone Dary Newman APRN C.N.P. Primary Care Provider Encounter Details Date Type Department Care Team Description 10/08/2018 Orders Only Department of Dary Newman V., Diabetes Mellitus Type Community Internal FREDIS C.N.P. 2 (HCC) (Primary Dx) Medicine in [address] [facility] [address] [place], [place] [phone] (Work) [phone] Social History Tobacco Use Types Packs/Day Years Used Date Smoking Tobacco: Unknown Smokeless Tobacco: Never Sex Assigned at Date Recorded Not on file documented as of this encounter Plan of Treatment Upcoming Encounters Date Type Specialty Care Team Description 09/27/2022 Office Visit Dermatology Marianela Braden M.D. 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 PCP - General Internal Medicine 06/29/18 01/29/19 [address] [place] [phone] documented as of this encounter
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
--- OUTSIDE RECORDS SUMMARY | 2022-08-14 22:58 | XMS_ITS | Encounter Summary ---
:1945 Author Organization [facility] Address [address] [place] [address] Care Team Providers Name Role Phone Unavailable Primary Care Provider Unavailable Encounter Details Date Type Department Care Team Description 03/29/2016 Hospital Encounter HX [facility] Naren Ervin M.D. [address] [place] [address] 021 (Wo rk) Social History Tobacco Use [...] day. ORAL) documented as of this encounter Nursing Notes Darren Mcdonald - 07/22/2016 10:02 AM CDT panel management Pt due for diabetic A1c. Pt contacted, indicates had A1c done in April with health promotion educator done through her pharmacy, also had medication changes at that time. Pt encouraged to contact insurance andcoll determine further coverage. Pt will call clinic to scheduled once has recieved information frominsurance. Electronically Signed By: DARREN MCDONALD LPN On: 07/22/2016 10:04 AM Source: [facility] POWERCHART Document Id: [id number] documented in this encounter Miscellaneous Notes Telephone Encounter - Conversion, Historical Provider Ser - 04/13/2016 4:11 PM CDT *Phone Message From: KONRAD HAJI (GRZEGORZ Carrasquillo Educational Psychology Teacher) To: GRZEGORZ Kruger Nurse; Sent: 04/13/2016 16:11:21 CDT Subject: *Phone Message Caller is: ( x) Patient ( ) Mother ( ) Father ( ) Spouse ( ) Daughter ( ) Son ( ) Pharmacy ( ) Other: Physician: Patient MRN #: Reason for Call: Please call regarding a perscription. She needs to dicuss. [phone] Message: Advice/Action: Source used: ( ) Verbalizes [...] back cell phone number ( ) Source[facility] Document Id: [id number] documented in this encounter Plan of Treatment Upcoming Encounters Date Type Specialty Care Team Description 09/27/2022 Office Visit Dermatology Marianela Braden M.D. [address] [place], [place] [phone] (Wo rk) documented as of this encounter Procedures Procedure Name Priority Date/Time Associated Diagnosis Comme nts BI BREAST SCREENING Routine 03/29/2016 3:30 PM Re sults for this BILATERAL CDT procedure are i n the results section. documented in this encounter Results BI Breast Screening Bilateral (03/29/2016 3:30 PM CDT) Anatomical Region Laterality Modality Breast Bilateral Mammography Specimen (Source) Anatomical Collection Method Collection Time Re ceived Time Location / / Volume Laterality 03/29/2016 3:30 PM CDT Addenda Addendum by ProviderAmy M.D. o bj 03/29/2016 3:30 PM CDT RAD^^^OW MA Mammo Screening w ??CADD 03/29/2016 15:30:30 Impressions 03/29/2016 5:24 PM CDT Recommendations: ??I recommend a follow-up mammogram in 1 year, self breast exams at least once pe r month and clinical breast exam at least once per year. ??Of note, benign findings should not deter biopsy in the setting of a palpabl e abnormality. ??The false negative rate of mammography is approxim ately 10%. CODE: 1-NEGATIVE Appropriate letter sent. Full field digital mammography is used a nd Computer Aided Detection is performed on the digital mammogram im ages. Narrative 03/29/2016 5:24 PM CDT EXAM: MA Mammo Screening w/ CADD INDICATION: screening ? AGE: 70 years-old COMPARISON: Previous studies dating back to 06/22/11. VIEWS: MLO and CC views of bilateral madyson asts. FINDINGS: The breasts are heterogeneousl y dense, which may obscure small masses. No change. Procedure Note Naren Fuentes M.D. / ProviderAmy M.D. - 03/10/2017 EXAM: MA Mammo Screening w/ CADD INDICATION: screening AGE: 70 years-old COMPARISON: Previous studies dating back to 06/22/11. VIEWS: MLO and CC views of bilateral madyson asts. FINDINGS: The breasts are heterogeneousl y dense, which may obscure small masses. No change. IMPRESSION: Recommendations: I recommend a follow-up mammogram in 1 year, self breast exams at least once pe r month and clinical breast exam at least once per year. Of note, be nign findings should not deter biopsy in the setting of a palpabl e abnormality. The false negative rate of mammography is approxim ately 10%. CODE: 1-NEGATIVE Appropriate letter sent. Full field digital mammography is used a nd Computer Aided Detection is performed on the digital mammogram im ages. 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
--- OUTSIDE RECORDS SUMMARY | 2022-08-14 22:59 | XMS_ITS | Encounter Summary ---
:1945 Author Organization [facility] Address [address] [place] [address] Care Team Providers Name Role Phone Unavailable Primary Care Provider Unavailable Encounter Details Date Type Department Care Team Description 04/14/2014 - Hospital Encounter HX [facility], 04/21/2014 ADDICTIONS Zander Samson M.D., M.S. [address] [place] [phone] Social History Tobacco Use Types Packs/Day Years [...] Office Visit Dermatology Marianela Braden M.D. [address] [place] [phone] (Wo rk) documented as of this encounter Visit Diagnoses Not on filedocumented in this encounter Additional Health Concerns Assessment Noted Time PHQ-9 Depression Total Score: 3 04/07/2014 12:09 PM CD T documented as of this encounter
--- OUTSIDE RECORDS SUMMARY | 2022-08-14 22:59 | XMS_ITS | Encounter Summary ---
:1945 Author Organization [facility] Address [address] [place] [address] Care Team Providers Name Role Phone Unavailable Primary Care Provider Unavailable Encounter Details Date Type Department Care Team Description 07/08/2014 Hospital Encounter HX [facility] INTERNMED Jairo Kruger M.D. [address] [place] [address]21 (Wo rk) Social History Tobacco Use Types Packs/Day Years Used Date Smoking Tobacco: Never Assessed Sex Assigned at Date Recorded Not on file documented as of this encounter Last Filed Vital Signs Vital Sign Reading Time Taken Comments Blood Pressure 122/64 07/08/2014 10:01 AM CDT Pulse 64 07/08/2014 10:01 AM CDT Temperature - - Respiratory Rate - - Oxygen Saturation - - Inhaled Oxygen Concentration - - Weight 93.5 kg (206 lb 2.1 oz) 07/08/2014 10:01 AM CDT Height 160 cm (5' 2.99) 07/08/2014 9:40 AM CDT Body Mass Index 36.52 07/08/2014 9:40 AM CDT documented in this encounter Medications at Time of Discharge Medication Sig Dispensed Refills Start Date End Date aspirin [address] tablet Take 1 tablet by mouth 0 03/14/2014 daily. documented as of this encounter Progress Notes Brandin Kruger M.D. - 07/08/2014 9:40 AM CDT [id number] Patient presents today. We have a lot of things to do. She had a basal cell carcinoma removed from her right evangelical area, and there were continuous and interrupted sutures to be removed. I removed all that I could clearly see and inspected under the magnifying glass, and I think they are all out. The wound is open a little bit in the rostral portion and a little bit at the very basal portion as well.Simply cover with Band-Aid. There is no evidence of wound infection. She had lots of swelling from this, all down through her eye, and I counseled that that will get better with time. She had ear problems after over-vigorous use of a Neti pot. I instructed categorically against that.I think when you use a Neti pot so vigorously that you can feel water up in the ear, that is too much. Claritin does not seem to work for her. I have asked her to try Zyrtec OTC as well. If that does not work, I will give her a Depo-Medrol shot, but that would have an adverse effect on her diabetes. The patient is wondering when her diabetes needs to be checked. We just did that in May, and she had an A1c of 6.3 and is not due for more bloods until essentially November. We had a long, long talk about her esa today and all the medicine she is taking. The findsher confused and having difficulty with fatigue, and she was put on a lot of medicines all at once. I find her very pressured and manic in her speech, and we will make some changes in the meds. MEDICATIONS Per [facility] EMR. ALLERGIES Per [facility] EMR. SYSTEMS REVIEW Review of systems in all areas except as mentioned above is negative. PREVENTIVE SERVICES: Per [facility] EMR. Handwashing done prior to patient contact. PAST MEDICAL/SURGICAL HISTORY Per [facility] EMR. VITAL SIGNS Per [facility] EMR. PHYSICAL EXAMINATION HEENT: She had a large wound in her right evangelical area which had both interrupted and continuous sutures. They were removed. ENT otherwise is remarkable for swelling in the periorbital region and aroundthe malar eminence, which should get better with time. Band-Aid applied. NECK: Supple, no adenopathy or thyromegaly. Carotid [...] no significant murmur, no gallop. IMPRESSION/REPORT/PLAN 1. Suture removal from basal cell carcinoma of the head. 2. Esa. I am going to have the Depakote taken once in the morning and 2 at bedtime, get rid of ReVia altogether and drop her Exelon patch to 4.6 mg. Prescriptions were sent to conform to that. She will recheck in 1 month. 3. Diabetes. She is not due for any laboratories until almost November of next year, and all tests were good. 4. Moderate cognitive dysfunction. This is a difficult thing, and I do not think all the medicines that were put on were helping her. We are going to stop one, cut down another, and see if there is anydifference. Time component 45 minutes, the majority counseling. Brandin Kruger M.D./cipriano Electronically Signed By: BRANDIN KRUGER MD On: 07/08/2014 11:31 AM Source: [facility] MHSDOLBEYNONRADSYS Document Id: [id number] documented in this encounter Miscellaneous Notes Miscellaneous - Irvin Salinas L.P.N. 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 And Inventory Clerk Intake/History Adult Warehouse Pricing And Inventory Clerk Intake/History Entered On: 07/08/2014 10:04 CDT Performed On: 07/08/2014 10:01 CDT by IRVIN SALINAS LPN Intake Temperature Core : 37 DegC(Converted to: 98.6 DegF) IRVIN SALINAS LPN - 07/08/2014 10:04 CDT Chief Complaint : recheck and suture removal Peripheral Pulse Rate : 64 /min Heart Rhythm : Regular Systolic Blood Pressure : 122 mmHg Diastolic Blood Pressure : 64 mmHg NIBP Mean : 83 mmHg BP Location : Left upper extremity Blood Pressure Cuff Size : Large Actual Weight : 93.5 kg(Converted to: 206 lb 2 oz) Weight Source : Standing scale Dosing Weight Clinic : 93.5 kg IRVIN SALINAS RAE SILVERWARE CLEANER - 07/08/2014 10:01 CDT General Info Information Given By : Patient Languages : Marshallese Is Patient Female and 13-50 no hysterectomy : IRVIN Irizarry SILVERWARE CLEANER - 07/08/2014 10:01 CDT Subjective Pain Symptoms : IRVIN Irizarry SILVERWARE CLEANER - 07/08/2014 10:01 CDT Dependent Habits Tobacco Use/Currently Using : No Exposure to Tobacco Smoke : Other: former smoker Smoking Status : Never smoker Alcohol Use : IRVIN Irizarry RAE SILVERWARE CLEANER - 07/08/2014 10:01 CDT Caffeine Use Grid Caffeine Use : Current Type : Coffee IRVIN SALINAS RAE SILVERWARE CLEANER - 07/08/2014 10:01 CDT Recreational Drug Use Grid Drug Use : None IRVIN SALINAS RAE [facility] - 07/08/2014 10:01 CDT Source: [facility] [employer] Document Id: [id number] CDT!3 Telephone Encounter - Alexsandra Gavin R.N. - 05/30/2014 10:36 AM CDT Provider Advice within 4 hours from the Nurse Call Center. Document Contains Addenda Addendum by ALEXSANDRA GAVIN RN on 30 May 2014 13:48:36 CDT Patient informed. Addendum by ALEXSANDRA GAVIN RN on 30 May 2014 12:47:05 CDT Message left for patient to call us back. Addendum by LEAH ADAM DO on 30 May 2014 12:30:30 CDT From: LEAH ADAM DO To: [facility] Nurse alteration hand; Sent: 05/30/2014 12:30:30 CDT Subject: RE: Provider Advice within 4 hours from the Nurse Call Center. This rash could be due to anything. She should be seen by a doctor today to get advice. From: ALEXSANDRA GAIVN RN ([facility] Nurse alteration hand) To: LEAH ADAM DO; Cc: [facility] Nurse alteration hand; Sent: 05/30/2014 10:36:16 CDT Subject: Provider Advice within 4 hours from the Nurse Call Center. Provider of the Day: Provider Advice within 4 hours from the Nurse Call Center. Triage nurse call: Jessica Meek is a 68 year old woman with a skin rash On Namenda 10 mg daily. She has been on it for 12 days. She got a raised red rash around the front of her neck that itches 3 days ago. She has tried putting cortisone cream and vaseline that has helpedthe itching somewhat. She has no swelling of lips, no swallowing issues, no wheezing or shortness ofbreath. Calls to see if she should stop the Namenda? Her primary care provider is out of the office until Monday. Calling from:[phone] NOTE: To see complete documentation of the patients symptoms, view the Expert RN note created on 05/30/14. This information is located in [employer]: 1. Go to Notes 2. Select Messages 3. Select Nurse Call Center Note 4. Find the correct date and click on it. Note will appear in viewing area 5. Please respond back to the [facility] Nurse Call Center Pool Source: [facility] POWERCHART Document Id: [id number] Electronically signed by Antonette, [facility] Magnaflux Operator [id number] at 04/04/2017 11:05 AM CDT documented in this encounter Plan of Treatment Upcoming Encounters Date Type Specialty Care Team Description 09/27/2022 Office Visit Dermatology Marianela Braden M.D. [address] [place], [place] [phone] (Wo rk) documented as of this encounter Visit Diagnoses Not on filedocumented in this encounter Additional Health Concerns Assessment Noted Time PHQ-9 Depression Total Score: 3 05/05/2014 7:55 AM CDT documented as of this encounter
--- OUTSIDE RECORDS SUMMARY | 2022-08-14 22:59 | XMS_ITS | Encounter Summary ---
:1945 Author Organization [facility] Address [address] [place] [address] Care Team Providers Name Role Phone Unavailable Primary Care Provider Unavailable Encounter Details Date Type Department Care Team Description 11/18/2013 Hospital Encounter HX [facility] Jairo Kruger M.D. [address] [place] [address] (Wo rk) Social History Tobacco Use Types Packs/Day Years Used Date Smoking Tobacco: Never Assessed Sex Assigned at Date Recorded Not on file documented as of this encounter Miscellaneous Notes Miscellaneous - Argelia Garcia, FREDIS, C.N.P. 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 You recently had laboratory work performed to assess your overall health. This letter contains the results of your testing and standard ranges to help explain the results. I would recommend follow-up as we previously discussed. If you have questions prior to our appointment, please contact our office. Result Name Current Result Previous Result Normal Range Sodium Lvl (mmol/L) 139 11/18/2013 137 04/30/2013 (L) 130 04/11/2013 135 - 145 Potassium Lvl (mmol/L) (H) 5.1 11/18/2013 4.8 04/30/2013 (H) 5.5 04/11/2013 3.5 - 4.8 Chloride (mmol/L) (L) 98 11/18/2013 (L) 94 04/30/2013 (L) 88 04/11/2013 100 - 108 CO2 (mmol/L) (H) 34 11/18/2013 (H) 31 04/30/2013 (H) 31 04/11/2013 22 - 30 Glucose Fasting (mg/dL) (H) 120 11/18/2013 (H) 107 04/30/2013 70 - 99 Creatinine (mg/dL) 0.7 11/18/2013 0.9 04/30/2013 0.9 04/11/2013 0.7 - 1.2 EGFR (MDRD) (mL/min) >60 11/18/2013 >60 04/30/2013 >60 04/11/2013 EGFR (MDRD) (mL/min) >60 11/18/2013 >60 04/30/2013 >60 04/11/2013 BUN (mg/dL) 20 11/18/2013 15 04/30/2013 18 04/11/2013 6 - 20 Calcium Lvl (mg/dL) 9.9 11/18/2013 10.2 04/30/2013 10.5 04/11/2013 8.5 - 10.5 AST (unit/L) 27 11/18/2013 37 04/30/2013 (H) 69 04/11/2013 8 - 43 Cholesterol (mg/dL) 183 11/18/2013 136 04/30/2013 0 - 200 Trig (mg/dL) (H) 202 11/18/2013 126 04/30/2013 0 - 150 HDL (mg/dL) (H) 63.0 11/18/2013 58.0 04/30/2013 40.0 - 60.0 LDL Calculated (mg/dL) 80 11/18/2013 53 04/30/2013 0 - 100 Hgb A1c (% A1C) 6.0 11/18/2013 (H) 6.1 04/30/2013 4.0 - 6.0 Sincerely, ARGELIA GARCIA [address] [place] [address] Electronic Signature Electronically Signed By: ARGELIA GARCIA CNP On: 18 November 2013 This document has images extracted. Source: [facility] POWERCHART Document Id: [id number] Electronically signed by Antonette, [facility] Service Line Coordinator [id number] at 04/04/2017 2:36 PM CDT documented in this encounter Plan of Treatment Upcoming Encounters Date Type Specialty Care Team Description 09/27/2022 Office Visit Dermatology Marianela Braden M.D. [address] [place], [place] [phone] (Wo rk) documented as of this encounter Procedures Procedure Name Priority Date/Time Associated Comments Diagnosis ALBUMIN, RANDOM, U Routine 11/18/2013 8:13 Result s for this AM [employer] procedure are i n the results section. LIPID PANEL, S Routine 11/18/2013 8:07 Results fo r this AM [employer] procedure are i n the results section. ASPARTATE Routine 11/18/2013 8:07 Results for this AMINOTRANSFERASE (AST), AM [employer] proc edure are in S/P the results section. HEMOGLOBIN A1C, B Routine 11/18/2013 8:07 Results for this AM [employer] procedure are i n the results section. BASIC METABOLIC PANEL, Routine 11/18/2013 8:07 Re sults for this S/P AM [employer] procedure are i n the results section. documented in this encounter Results Microalbumin, Random, Urine (11/18/2013 8:13 AM SUPERVISOR [employer]) P athologist Signature HXU Albumin % 29 MGDL POWERCHART Creatinine, 116 MGDL POWERCHART Random, U Albumin/Creatin 25 0 - 25 MGGM POWERCHART ine Ratio Specimen (Source) Anatomical Collection Method Collection Time Re ceived Time Location / / Volume Laterality Urine 11/18/2013 8:13 AM SUPERVISOR [employer] Argelia Garcia APRN, C.N.P. LAB URINE ORDERABLES Performing Organization Address City/State/ZIP Code Phon e Number POWERCHART (ABNORMAL) Lipid Panel (11/18/2013 8:07 AM SUPER[employer]) [facility] Method Time Signature Cholesterol, 183 0 - 200 POWERCHART Total MGDL HX HDL 63.0 (H) 40.0 - POWERCHART 60.0 MGDL Triglycerides 202 (H) 0 - 150 POWERCHART MGDL Calculated LDL 80 0 - 100 POWERCHART MGDL Specimen (Source) Anatomical Collection Method Collection Time Re ceived Time Location / / Volume Laterality Blood 11/18/2013 8:07 AM SUPER[employer] Argelia Garcia APRN, C.N.P. LAB BLOOD ADD-ON Performing Organization Address City/State/ZIP Code Phon e Number POWERCHART AST (Aspartate Aminotransferase) (11/18/2013 8:07 AM SUPER[employer]) Patholo gist Method Time Signature Aspartate 27 8 - 43 POWERCHART Aminotransferase UNITL (AST), S Specimen (Source) Anatomical Collection Method Collection Time Re ceived Time Location / / Volume Laterality Blood 11/18/2013 8:07 AM SUPER[employer] Daria Cullen APRNN.PLori LAB BLOOD ADD-ON Performing Organization Address City/[facility] Code Phon e Number POWERCHART Hemoglobin A1c (11/18/2013 8:07 AM SUPERVISOR [employer]) P athologist Signature Hemoglobin A1c, 6.0 4.0 - 6.0 POWERCHART B A1C Specimen (Source) Anatomical Collection Method Collection Time Re ceived Time Location / / Volume Laterality Blood 11/18/2013 8:07 AM SUPERVISOR [employer] Daria Cullen APRNN.Jenni LAB BLOOD ADD-ON Performing Organization Address City/[facility] Phon e Number POWERCHART (ABNORMAL) BMP (Basic Metabolic Panel) (11/18/2013 8:07 AM SUPERVISOR [employer]) P athologist Signature BUN (Blood Urea 20 6 - 20 POWERCHART Nitrogen), S MGDL Creatinine 0.7 0.7 - 1.2 POWERCHART MGDL Potassium, S 5.1 (H) 3.5 - 4.8 POWERCHART MMOLL Sodium, S 139 135 - 145 POWERCHART MMOLL Chloride, S 98 (L) 100 - 108 POWERCHART MMOLL CO2 Total 34 (H) 22 - 30 POWERCHART MMOLL Calcium, Total, 9.9 8.5 - 10.5 POWERCHART S MGDL eGFR >60 MLMIN POWERCHART Black/ Glucose, 120 (H) 70 - 99 POWERCHART Fasting, S MGDL HXeGFR (MDRD) >60 MLMIN POWERCHART Specimen (Source) Anatomical Collection Method Collection Time Re ceived Time Location / / Volume Laterality Blood 11/18/2013 8:07 AM SUPER[employer] Reyna Cullen APRN.N.P. LAB BLOOD ADD-ON Performing Organization Address City/State/ZIP Code Phon e Number POWERCHART documented in this encounter Visit Diagnoses Not on filedocumented in this encounter
--- OUTSIDE RECORDS SUMMARY | 2022-08-14 22:59 | XMS_ITS | Encounter Summary ---
:1945 Author Organization [facility] Address [address] [place] [address] Care Team Providers Name Role Phone Unavailable Primary Care Provider Unavailable Encounter Details Date Type Department Care Team Description 12/23/2014 Hospital Encounter HX [facility] Iona Garcia, FREDIS, C.N.P. [address] [place] [address] (Wo rk) Social History Tobacco Use Types Packs/Day Years Used Date Smoking Tobacco: Never Assessed Sex Assigned at Date Recorded Not on file documented as of this encounter Last Filed Vital Signs Vital Sign Reading Time Taken Comments Blood Pressure 136/68 12/23/2014 9:40 AM HYDRATE THICKENER OPERATOR Pulse 68 12/23/2014 9:36 AM HYDRATE THICKENER OPERATOR Temperature - - Respiratory Rate 20 12/23/2014 9:36 AM HYDRATE THICKENER OPERATOR Oxygen Saturation - - Inhaled Oxygen Concentration - - Weight 93.4 kg (205 lb 14.6 oz) 12/23/2014 9:36 AM HYDRATE THICKENER OPERATOR Height 160 cm (5' 2.99) 12/23/2014 9:40 AM HYDRATE THICKENER OPERATOR Body Mass Index 36.48 12/23/2014 9:36 AM HYDRATE THICKENER OPERATOR documented in this encounter Medications at Time of Discharge Medication Sig Dispensed Refills Start Date End Date aspirin [address] tablet Take 1 tablet by mouth 0 03/14/2014 daily. documented as of this encounter Progress Notes Argelia Garcia, FREDIS, C.N.P. - 12/23/2014 9:14 AM CST [id number] CHIEF COMPLAINT/REASON FOR VISIT Diabetes type 2. HISTORY OF PRESENT ILLNESS Frances is here for diabetes education. She has several questions today. Her last A1c was excellent at 6. Dr. Kruger has been decreasing her diabetes medications. She was having excessive diarrhea from metformin. She had been on 1500 mg. She is now down to 500 mg daily. She is tolerating that without any adverse effects. She has been working hard on diet and exercise with weight loss. She has some questions about diabetes diet, whether she should eat 5 small meals a day versus 3 regular meals or whether she needs a bedtime snack. We did discuss those questions at length today. She also needs refill on test strips. She is testing once a day and that should be adequate for her. I have asked her to rotate the times she tests, one day fasting the next day 2 hours postprandial. She is due for foot examtoday. She had dilated eye exam this summer in [place]. Will call for record of that. MEDICATIONS See depart summary from today. ALLERGIES None. SYSTEMS REVIEW Positive for that mentioned template. PREVENTIVE Up-to-date. SOCIAL HISTORY She does not smoke. VITAL SIGNS See EMR. PHYSICAL EXAMINATION GENERAL: Well-developed, well-nourished female, in no acute distress. SKIN: Warm and dry. HEART: Regular rate and rhythm. LUNGS: Clear to auscultation. ABDOMEN: Soft, nontender. No hepatosplenomegaly. EXTREMITIES: Warm, dry. No peripheral edema. Normal sensation, tops and bottoms of feet with monofilament. IMPRESSION/REPORT/PLAN 1. Diabetes type 2, controlled. Doing well on metformin 500 mg 1 daily and no gastrointestinal issues. Will continue that until Dr. Kruger determines if she should discontinue it completely or not. 2. She will test glucose once daily, alternating between fasting and 2-hours postprandial. She was given refill on test strips today. 3. Dilated eye exam was completed this summer and we will request record of that visit from Dr. Agulia in [place]. 4. Diet was discussed at length and all of her questions were answered. Total time spent with the patient 25 minutes, 20 minutes of it counseling and coordinating care including diabetes education on diet and blood glucose testing. Argelia Garcia CNP/cipriano Electronically Signed By: ARGELIA GARCIA CNP On: 12/23/2014 12:40 PM Source: [facility] MHSDOLBEYNONRADSYS Document Id: [id number] ATE THICKENER OPERATOR documented in this encounter Nursing Notes Argelia Garcia APRN, C.NInez. - 12/23/2014 10:11 AM CST Ambulatory Patient Education The following Patient Education Materials have been given to the patient: Patient Education Materials: Ambulatory DIABETIC FOOT CARE Ambulatory Diabetic Foot Care Diabetes can lead to a number of different foot complications. Fortunately, most of these complications can be prevented with a little extra foot care. If diabetes is not well controlled, the high blood sugar can cause damage to blood vessels and result in poor circulation to the foot. When the skin does not get enough blood flow, it becomes prone to pressure sores and ulcers, which heal slowly. High blood sugar can also damage nerves, interfering with the ability to feel pain and pressure. When you cant feel your foot normally, it is easy to injure your skin, bones and joints without knowing it. For these reasons diabetes increases the risk of fungal infections, bunions and ulcers. Deep ulcers can lead to bone infection. Gangrene is the most serious foot complication of diabetes. It usuallyoccurs on the tips of the toes as blacked areas of skin. The black area is tissue. In severe cases, gangrene spreads to involve the entire toe, other toes and the entire foot. Foot or toe amputation may be required. Good foot care and blood sugar control can prevent this. Home Care Wear comfortable, proper fitting shoes. Wash your feet daily with warm water and mild soap. After drying, apply a moisturizing cream or lotion. Check your feet daily for skin breaks, blisters, swelling, or redness. Look between your toes also. Wear cotton socks and change them every day. Trim toe nails carefully and do not cut your cuticles. Strive to keep your blood sugar under control with a combination of medicines, diet and activity. If you smoke and have diabetes, it is very important that you stop. Smoking reduces blood flow to your foot. Avoid activities that increase your risk of foot injury: ?? Do not walk barefoot. ?? Do not use heating pads or hot water bottles on your feet. ?? Do not put your foot in a hot tub without first checking the temperature with your hand. 10) Schedule yearly foot exams. Follow Up with your doctor or as advised by our staff. Report any cut, puncture, scrape, other injury, blister, bunion, ingrown toenail or ulcer on your foot. Get Prompt Medical Attention if any of the following occur: -- Black skin color anywhere on the foot -- Open ulcer with pus draining from the wound -- Increasing foot or leg pain -- New areas of redness or swelling or tender areas of the foot ?? [id number] Ana [facility], [address] [place] [address]. All rights reserved. This information is not intended as a substitute for professional medical care. Always follow your healthcare professional's instructions. Source: [facility] Document Id: [id number] ATE THICKENER OPERATOR Argelia Garcia APRN, C.N.P. - 12/23/2014 10:10 AM CST Ambulatory Patient Education The following Patient Education Materials have been given to the patient: Patient Education Materials: Source: [facility] Document Id: [id number] ATE THICKENER OPERATOR documented in this encounter Miscellaneous Notes Miscellaneous - Argelia Garcia APRN, C.N.P. - 12/23/2014 10:11 AM HYDRATE THICKENER OPERATOR Ambulatory Patient Summary [address] [id number] Visit Information Name: FRANCES HAGER [facility] Number: [id number] Current Date: 12/23/2014 10:11:07 Physicians Attending Provider: ARGELIA GARCIA CNP Primary Care Provider: BRANDIN KRUGER MD FRANCES [...] Tablet(s), Oral, once a day (at bedtime) chlorpheniramine (chlorpheniramine 4 mg oral tablet) 1 Tablet(s), Oral, once a day cinnamon oral (cinnamon oral) 1,000 mg, Oral, once a day *clotrimazole-betamethasone topical (Lotrisone 1%-0.05% topical cream) 1 manny, Topical, two times a day cyanocobalamin (Vitamin B12 1000 mcg oral tablet) 1 Tablet(s), Oral, 3 times a week divalproex sodium (Depakote) See Instructions 500mg in am and 1000mg in pm lisinopril (lisinopril 40 mg oral tablet) 1 Tablet(s), Oral, once a day This is a CHANGE magnesium oxide (magnesium oxide 250 mg oral tablet) 1 Tablet(s), Oral, once a day metFORMIN (metFORMIN 500 mg oral tablet) 1 Tablet(s), Oral, once a day multivitamin with minerals (Ocuvite Lutein oral tablet) 1 Tablet(s), Oral, once a day * You have let us know that you are not taking this medication as listed. Please talk with your primary care provider or the health care provider who prescribed the medication as soon as possible. Stop Taking the Following Medications: Medication list as of 12-23-14 10:11 Attention: If you have any medications at home that are not on this list, DO NOT take them until youcontact your provider for clarification. Give a copy of your medication list to your primary care provider. Update your medication list any time medications or doses are changed and carry your medication list at all times in case of emergency. 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 Diabetic Foot Care Diabetes can lead to a number of different foot complications. Fortunately, most of these complications can be prevented with a little extra foot care. If diabetes is not well controlled, the high blood sugar can cause damage to blood vessels and result in poor circulation to the foot. When the skin does not get enough blood flow, it becomes prone to pressure sores and ulcers, which heal slowly. High blood sugar can also damage nerves, interfering with the ability to feel pain and pressure. When you cant feel your foot normally, it is easy to injure your skin, bones and joints without knowing it. For these reasons diabetes increases the risk of fungal infections, bunions and ulcers. Deep ulcers can lead to bone infection. Gangrene is the most serious foot complication of diabetes. It usuallyoccurs on the tips of the toes as blacked areas of skin. The black area is tissue. In severe cases, gangrene spreads to involve the entire toe, other toes and the entire foot. Foot or toe amputation may be required. Good foot care and blood sugar control can prevent this. Home Care Wear comfortable, proper fitting shoes. Wash your feet daily with warm water and mild soap. After drying, apply a moisturizing cream or lotion. Check your feet daily for skin breaks, blisters, swelling, or redness. Look between your toes also. Wear cotton socks and change them every day. Trim toe nails carefully and do not cut your cuticles. Strive to keep your blood sugar under control with a combination of medicines, diet and activity. If you smoke and have diabetes, it is very important that you stop. Smoking reduces blood flow to your foot. Avoid activities that increase your risk of foot injury: ?? Do not walk barefoot. ?? Do not use heating pads or hot water bottles on your feet. ?? Do not put your foot in a hot tub without first checking the temperature with your hand. 10) Schedule yearly foot exams. Follow Up with your doctor or as advised by our staff. Report any cut, puncture, scrape, other injury, blister, bunion, ingrown toenail or ulcer on your foot. Get Prompt Medical Attention if any of the following occur: -- Black skin color anywhere on the foot -- Open ulcer with pus draining from the wound -- Increasing foot or leg pain -- New areas of redness or swelling or tender areas of the foot ?? [id number] Ana [facility], [address] [place] [address]. All rights reserved. This information is not intended as a substitute for professional medical care. Always follow your healthcare professional's instructions. Your Goals/Additional instructions: Source: [facility] POWERCHART Document Id: [id number] ATE THICKENER OPERATOR Miscellaneous - Argelia Garica APRN, C.N.P. - 12/23/2014 10:11 AM HYDRATE THICKENER OPERATOR Ambulatory Discharge Medication List [address] [id number] Visit Information Name: FRANCES HAGER [facility] Number: [id number] Visit Date: 12/23/2014 10:11:05 Attending Provider: ARGELIA GARCIA [facility] Primary Care Provider: BRANDIN KRUGER MD FRANCES [...] Tablet(s), Oral, once a day (at bedtime) chlorpheniramine (chlorpheniramine 4 mg oral tablet) 1 Tablet(s), Oral, once a day cinnamon oral (cinnamon oral) 1,000 mg, Oral, once a day *clotrimazole-betamethasone topical (Lotrisone 1%-0.05% topical cream) 1 manny, Topical, two times a day cyanocobalamin (Vitamin B12 1000 mcg oral tablet) 1 Tablet(s), Oral, 3 times a week divalproex sodium (Depakote) See Instructions 500mg in am and 1000mg in pm lisinopril (lisinopril 40 mg oral tablet) 1 Tablet(s), Oral, once a day This is a CHANGE magnesium oxide (magnesium oxide 250 mg oral tablet) 1 Tablet(s), Oral, once a day metFORMIN (metFORMIN 500 mg oral tablet) 1 Tablet(s), Oral, once a day multivitamin with minerals (Ocuvite Lutein oral tablet) 1 Tablet(s), Oral, once a day * You have let us know that you are not taking this medication as listed. Please talk with your primary care provider or the health care provider who prescribed the medication as soon as possible. Stop Taking the Following Medications: Medication list as of 12-23-14 10:11 Attention: If you have any medications at home that are not on this list, DO NOT take them until youcontact your provider for clarification. Give a copy of your medication list to your primary care provider. Update your medication list any time medications or doses are changed and carry your medication list at all times in case of emergency. Electronically Signed By: ARGELIA GARCIA [facility] Signed On:23-DEC-2014 10:10:29 Additional Information: Source: [facility] POWERCHART Document Id: [id number] ATE THICKENER OPERATOR Miscellaneous - Argelia Garcia APRN, C.N.P. - 12/23/2014 10:07 AM HYDRATE THICKENER OPERATOR Quality Measures Quality Measures Entered On: 12/23/2014 10:07 HYDRATE THICKENER OPERATOR Performed On: 12/23/2014 10:07 HYDRATE THICKENER OPERATOR by ARGELIA GARCIA CNP Diabetes Date of Last Foot Exam : 12/23/2014 HYDRATE THICKENER OPERATOR Date of Last Diabetes Education : 12/23/2014 HYDRATE THICKENER OPERATOR ARGELIA GARCIA CNP - 12/23/2014 10:07 HYDRATE THICKENER OPERATOR Foot Exam Grid Left foot exam Right foot exam Dorsalis Pedis Pulse : Normal Normal Capillary Refill : Less than 3 seconds Less than 3 seconds 10 gm Monofilament Sensation Check : Intact Intact ARGELIA GRACIA CNP - 12/23/2014 10:07 HYDRATE THICKENER OPERATOR ARGELIA GARCIA CNP - 12/23/2014 10:07 HYDRATE THICKENER OPERATOR Source: [facility] [employer] Document Id: [id number] HYDRATE THICKENER OPERATOR!13 ATE THICKENER OPERATOR Jimmie - Blanca Fitch L.P.NLori - 12/23/2014 9:40 AM CST Ambulatory Vitals Height Weight Ambulatory Vitals Height Weight Entered On: 12/23/2014 9:40 HYDRATE THICKENER OPERATOR Performed On: 12/23/2014 9:40 HYDRATE THICKENER OPERATOR by BLANCA FITCH LPN Vitals/Ht/Wt Systolic Blood Pressure : 136 mmHg Diastolic Blood Pressure : 68 mmHg NIBP Mean : 91 mmHg BP Location : Right upper extremity Blood Pressure Cuff Size : Large Height : 160 cm(Converted to: 5 ft 3 inch(es), 63 inch(es)) BLANCA FITCH LPN - 12/23/2014 9:40 HYDRATE THICKENER OPERATOR Source: [facility] [employer] Document Id: [id number] HYDRATE THICKENER OPERATOR!8 ATE THICKENER OPERATOR Miscellaneous - Blanca Fitch L.P.NLori - 12/23/2014 9:36 AM CST Adult Pump Erector Helper Intake/History Adult Pump Erector Helper Intake/History Entered On: 12/23/2014 9:38 HYDRATE THICKENER OPERATOR Performed On: 12/23/2014 9:36 HYDRATE THICKENER OPERATOR by BLANCA FITCH LPN Intake Chief Complaint : Diabetic check. Labs done in November. Need refill test strips. Temperature Core : 36.2 DegC(Converted to: 97.2 DegF) (LOW) Peripheral Pulse Rate : 68 /min Respiratory Rate : 20 /min Heart Rhythm : Regular Systolic Blood Pressure : 158 mmHg (HI) Diastolic Blood Pressure : 70 mmHg NIBP Mean : 99 mmHg BP Location : Right upper extremity Blood Pressure Cuff Size : Large Height : 160 cm(Converted to: 5 ft 3 inch(es), 63 inch(es)) Actual Weight : 93.4 kg(Converted to: 205 lb 15 oz) Weight Source : Standing scale Dosing Weight Clinic : 93.4 kg Clinic BSA : 2.04 Body Mass Index : 36.48 kg/m2 BLANCA FITCH LPN - 12/23/2014 9:36 HYDRATE THICKENER OPERATOR General Info Information Given By : Patient Preferred Communication Mode : Verbal Languages : Syrian Is Patient Female and 13-50 no hysterectomy : No BLANCA FITCH LPN - 12/23/2014 9:36 HYDRATE THICKENER OPERATOR Subjective Pain Symptoms : No BLANCA FITCH LPN - 12/23/2014 9:36 HYDRATE THICKENER OPERATOR Dependent Habits Tobacco Use/Currently Using : No Exposure to Tobacco Smoke : Other: former smoker Smoking Status : Former smoker BLANCA FITCH LPN - 12/23/2014 9:36 HYDRATE THICKENER OPERATOR Caffeine Use Grid Caffeine Use : Current Type : Coffee BLANCA FITCH LPN - 12/23/2014 9:36 HYDRATE THICKENER OPERATOR Recreational Drug Use Grid Drug Use : None BLANCA FITCH LPN - 12/23/2014 9:36 HYDRATE THICKENER OPERATOR ID Screen Drug Resistant Organism : Yes Travel Within Last 21 Days : No BLANCA FITCH LPN - 12/23/2014 9:36 HYDRATE THICKENER OPERATOR [facility] Document Id: [id number] HYDRATE THICKENER OPERATOR!39 ATE THICKENER OPERATOR Miscellaneous - Blanca Fitch L.P.NLori - 06/18/2014 11:43 AM CDT Quality Measures Quality Measures Entered On: 12/23/2014 11:44 HYDRATE THICKENER OPERATOR Performed On: 06/18/2014 11:43 CDT by BLANCA FITCH LPN Diabetes Date of Last Eye Exam : 06/18/2014 CDT BLANCA FITCH LPN - 12/23/2014 11:43 HYDRATE THICKENER OPERATOR Source: [facility] POWERCHART Document Id: [id number] HYDRATE THICKENER OPERATOR!3 ATE THICKENER OPERATOR documented in this encounter Plan of Treatment Upcoming Encounters Date Type Specialty Care Team Description 09/27/2022 Office Visit Dermatology Marianela Braden M.D. [address] [place], [place] [phone] (Wo rk) documented as of this encounter Visit Diagnoses Not on filedocumented in this encounter Additional Health Concerns Assessment Noted Time PHQ-9 Depression Total Score: 3 05/05/2014 7:55 AM CDT documented as of this encounter
--- OUTSIDE RECORDS SUMMARY | 2022-08-14 22:59 | XMS_ITS | Encounter Summary ---
:1945 Author Organization [facility] Address [address] [place] [address] Care Team Providers Name Role Phone Unavailable Primary Care Provider Unavailable Encounter Details Date Type Department Care Team Description 07/29/2014 Hospital Encounter HX NO MAPPING Fabricio Kruger M.D. [address] [place] [phone] (Wo yajaira) Social History Tobacco [...] Visit Dermatology Marianela Braden M.D. [address] [place], [place] [phone] (Wo rk) documented as of this encounter Visit Diagnoses Not on filedocumented in this encounter Additional Health Concerns Assessment Noted Time PHQ-9 Depression Total Score: 3 05/05/2014 7:55 AM CDT documented as of this encounter
--- OUTSIDE RECORDS SUMMARY | 2022-08-14 22:59 | XMS_ITS | Encounter Summary ---
:1945 Author Organization [facility] Address [address] [place] [address] Care Team Providers Name Role Phone Unavailable Primary Care Provider Unavailable Encounter Details Date Type Department Care Team Description 11/27/2014 Hospital Encounter [facility] INTERNMED Jairo Xiong M.D. [address] [place] [address] 021 (Wo rk) Social History Tobacco Use Types Packs/Day Years Used Date Smoking Tobacco: Never Assessed Sex Assigned at Date Recorded Not on file documented as of this encounter Last Filed Vital Signs Vital Sign Reading Time Taken Comments Blood Pressure 110/64 11/27/2014 8:27 AM SHEAR GRINDER OPERATOR HELPER Pulse 60 11/27/2014 8:27 AM SHEAR GRINDER OPERATOR HELPER Temperature - - Respiratory Rate 16 11/27/2014 8:27 AM SHEAR GRINDER OPERATOR HELPER Oxygen Saturation - - Inhaled Oxygen Concentration - - Weight 90 kg (198 lb 6.6 oz) 11/27/2014 8:27 AM SHEAR GRINDER OPERATOR HELPER Height 159 cm (5' 2.6) 11/27/2014 8:27 AM SHEAR GRINDER OPERATOR HELPER Body Mass Index 35.6 11/27/2014 8:27 AM SHEAR GRINDER OPERATOR HELPER documented in this encounter Medications at Time of Discharge Medication Sig Dispensed Refills Start Date End Date aspirin [address] tablet Take 1 tablet by mouth 0 03/14/2014 daily. documented as of this encounter H&P Notes Brandin Xiong M.D. - 11/27/2014 8:18 AM CST [id number] Preventive medicine with acute problems. Acute problems: 1. She asked about her diagnosis of alcoholism. She is surprised by it because she has quit drinkingand has no compulsion to start drinking again. I find her much better off alcohol, and I do not disagree with the diagnosis that was made down at [place] and then carried on at the [facility]. The fact that she has no hankering to drink is a blessing and should be considered as such. 2. Obsessive compulsive behavior. She wonders if she could come off Depakote. We had a long talk about that, but my feeling at the moment is if it is not broke, do not fix it. Maybe she could put her goal at the end of the year, if she continues to lose weight and do well, to get off both Depakote andoral hypoglycemics. She was agreeable with that. 3. AODM. Her A1c has been very good, and we been dropping her medicine. She continues to watch her diet and lose weight. If she would have again another good A1c, we can consider dropping the oral hypoglycemics further, and a reasonable goal for her by the end of the year might be to get off pills for diabetes. 4. Hypertension. Control is excellent and meeting goals but will check electrolytes and exam for target organ damage or clinical cardiovascular disease. 5. Dyslipidemia. Patient has elevated cholesterol. They are taking medication to lower the cholesterol. We will check laboratories today to assess their control. MEDICATIONS Per EMR. ALLERGIES Per EMR. SYSTEMS REVIEW Review of systems in all areas except as mentioned above is negative. PAST MEDICAL/SURGICAL HISTORY 1. AODM. 2. Dyslipidemia. 3. Obsessive compulsive behavior. 4. Alcoholism. 5. Moderate obesity. 6. Hypertension. FAMILY HISTORY Her father of an [place] at 59, but he had rheumatic heart disease and that was a long time ago. There is no history of breast cancer in the family. No history of colorectal cancer in the family. SOCIAL HISTORY She has no alcohol of any kind and no tobacco. She is and lives with a supportive . VITAL SIGNS Per EMR. PHYSICAL EXAMINATION HEENT: Eyes: Conjunctivae and lids normal. Pupils equal, round, reactive to light and accommodation.Extraocular movements normal. Sclerae nonicteric. Ophthalmologic exam grossly normal. ENT: Tympanic membranes look okay bilaterally. Nares without erythema or congestion. Mouth without erythema or exudate, no leuko or erythroplakia. 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 [place] teeth, top and bottom. NECK: Supple, no adenopathy or thyromegaly. Carotid [...] fourthsound, no significant murmur, no gallop. ABDOMEN: Obese, soft, nondistended. No organomegaly. No focal mass or tenderness. PELVIC/GENITOURINARY: Deferred. EXTREMITIES: Warm, dry, noncyanotic. No clubbing or peripheral edema. NEUROLOGIC: She is alert, oriented, and grossly nonfocal. Diabetic light-touch filament examination of the feet is normal. IMPRESSION/REPORT/PLAN ACTIVE PROBLEM: 1. Adult-onset diabetes mellitus. Her control has been excellent. She finds her fingersticks good. She does take aspirin. Has blood pressure control, lipid control, and A1c control on her last value, but she is due. All these things will be checked today. 2. Dyslipidemia, treated. Her LDL goal is less than 100, and we will see how she is doing with her Lipitor. I will check ALT and a lipid panel today. 3. Hypertension, meeting goals. 4. Obsessive compulsive behavior. For the time being, keep Depakote alone, but if doing well into the summer, I may consider reducing and then stopping the dose by the end of the year. 5. Seasonal allergies, under control with use of loratadine. She had some questions about her vitamins, and I recommended she stop her magnesium and a cinnamon pill that she is taking. INACTIVE PROBLEMS: Please see past medical history. HEALTH MAINTENANCE CONCERNS: She is due for a mammogram, having done them at [facility] in the past, and a DEXA scan. Her orthopedic doctor, after her shoulder surgery, thinks she should wait untilthe spring, so I will schedule her in 4 months for both a screening DEXA scan and a screening mammogram, and she will transfer that care here instead of going up to the [facility] to do her mammogram. Labstoday: She had an ALT, BMP, hemoglobin, hemoglobin A1c, lipid panel, TSH, UA with microalbumin, and UA with reflux to culture. We will call her with results. She is current on immunizations completely and on colonoscopy. Brandin Xiong M.D./cipriano Electronically Signed By: BRANDIN XIONG MD On: 11/27/2014 12:46 PM Source: [facility] MHSDOLBEYNONRADSYS Document Id: [id number] R GRINDER OPERATOR HELPER documented in this encounter Miscellaneous Notes Miscellaneous - Shani Hanson R.N. - 12/15/2014 10:47 AM CST metformin Document Contains Addenda Addendum by BRANDIN XIONG MD on 15 December 2014 11:02:00 SHEAR GRINDER OPERATOR HELPER From: BRANDIN XIONG MD Sent: 12/15/2014 11:01:59 SHEAR GRINDER OPERATOR HELPER Subject: RE:metformin Approved Order:metFORMIN (metFORMIN 500 mg oral tablet) 1 tab(s) PO Daily Qty: 90 tab(s) Refills: 1 Substitutions Allowed Route To Pharmacy - [id number] Signed by BRANDIN XIONG MD 12/15/2014 11:01:53 From: SHANI HANSON (FB [place] Medication Refill) To: BRANDIN XIONG MD; Sent: 12/15/2014 10:47:27 SHEAR GRINDER OPERATOR HELPER Subject: metformin On hold pending signature Order:metFORMIN (metFORMIN 500 mg oral tablet) 1 tab(s) PO Daily Qty: 90 tab(s) Refills: 1 Substitutions Allowed Route To Pharmacy - [facility] #[id number] Caller is: ( ) Patient ( ) Mother ( ) Father ( ) Spouse ( ) Daughter ( ) Son ( [facility] ) Pharmacy ( ) Other: Provider: kavita xiong Pharmacy: Name of Medications Needing Refill: metformin 500 mg Last Refill Date: 09/15/14 qty 180 Additional Information: med changed 1 tab po daily on 11/27/14.... 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 - 12/01/2014 7:55 AM CST Results Notification Document Contains Addenda Addendum by IRVIN SALINAS LPN on 01 December 2014 13:18:31 SHEAR GRINDER OPERATOR HELPER called with results From: BRANDIN XIONG MD To: GRZEGORZ Xiong Nurse; Sent: 12/01/2014 07:55:07 SHEAR GRINDER OPERATOR HELPER ! Show up: 12/01/2014 07:55:07 SHEAR GRINDER OPERATOR HELPER Subject: Results Notification Actions: Notify patient of results Reminder Comments: ok Results: Date Result Name Value Ref Range 11/27/2014 09:13 U Albumin 48 mg/dL 11/27/2014 09:13 U Creatinine 214 mg/dL 11/27/2014 09:13 U Alb/Creatinine Ratio 22 mg/gm (0 - 25) Source: [facility] POWERCHART Document Id: [id number] Electronically signed by [facility] Lip And Gate Builder [id number] at 04/02/2017 1:54 PM CDT Brandin Malik M.D. - 11/28/2014 9:47 AM CST Results Notification Document Contains Addenda Addendum by FREDERIC JIMENEZ LPN on 28 November 2014 10:27:18 SHEAR GRINDER OPERATOR HELPER Patient informed of results. Addendum by FREDERIC JIMENEZ LPN on 28 November 2014 10:15:59 SHEAR GRINDER OPERATOR HELPER Left message for patient to return my call. From: BRANDIN XIONG MD To: GRZEGORZ Xiong Nurse; Sent: 11/28/2014 09:47:16 SHEAR GRINDER OPERATOR HELPER ! Show up: 11/28/2014 09:47:16 SHEAR GRINDER OPERATOR HELPER Subject: Results Notification Actions: Notify patient of results Reminder Comments: ok Results: Date Result Name Value Ref Range 11/27/2014 09:07 TSH 2.81 mIU/L (0.27 - 4.20) Source: [facility] POWERCHART Document Id: [id number] Electronically signed by [facility], [facility] Lip And Gate Builder [id number] at 04/02/2017 1:54 PM CDT Brandin Malik M.D. - 11/28/2014 9:46 AM CST Results Notification Document Contains Addenda Addendum by BRANDIN XIONG MD on 01 December 2014 07:56:09 SHEAR GRINDER OPERATOR HELPER From: BRANDIN XIONG MD To: BRANDIN XIONG MD; Sent: 12/01/2014 07:56:09 SHEAR GRINDER OPERATOR HELPER Show up: 12/01/2014 07:56:00 SHEAR GRINDER OPERATOR HELPER Subject: RE: Results Notification may stop Addendum by FREDERIC JIMENEZ LPN on 28 November 2014 10:26:57 SHEAR GRINDER OPERATOR HELPER Patient notified of results. Patient would like to know if she is to continue Vitamin B12? She forgot to ask during her visit. Please advise. Addendum by FREDERIC JIMENEZ LPN on 28 November 2014 10:16:08 SHEAR GRINDER OPERATOR HELPER Left message for patient to return my call. From: BRANDIN XIONG MD To: GRZEGORZ Xiong Nurse; Sent: 11/28/2014 09:46:58 SHEAR GRINDER OPERATOR HELPER ! Show up: 11/28/2014 09:46:58 SHEAR GRINDER OPERATOR HELPER Subject: Results Notification Actions: Notify patient of results Reminder Comments: no growth Results: Date Result Type Ind Result Name MBO Review Culture Urine Source: [facility] ACECHART Document Id: [id number] Electronically signed by [facility], [facility] Lip And Gate Builder [id number] at 04/02/2017 1:54 PM CDT Brandin Malik M.D. - 11/27/2014 10:56 AM CST Results Notification Document Contains Addenda Addendum by IRVIN SALINAS LPN on 27 November 2014 16:25:12 SHEAR GRINDER OPERATOR HELPER called with results From: BRANDIN XIONG MD To: GRZEGORZ Xiong Nurse; Sent: 11/27/2014 10:56:50 SHEAR GRINDER OPERATOR HELPER ! Show up: 11/27/2014 10:56:50 SHEAR GRINDER OPERATOR HELPER Subject: Results Notification Actions: Notify patient of results Reminder Comments: ok Results: Date Result Name Ind Value Ref Range 11/27/2014 09:07 Sodium Lvl 138 mmol/L (135 - 145) 11/27/2014 09:07 Potassium Lvl (H) 5.4 mmol/L (3.5 - 4.8) 11/27/2014 09:07 Chloride (L) 98 mmol/L (100 - 108) 11/27/2014 09:07 CO2 (H) 32 mmol/L (22 - 30) 11/27/2014 09:07 Glucose Fasting 87 mg/dL (70 - 99) 11/27/2014 09:07 Creatinine 0.9 mg/dL (0.7 - 1.2) 11/27/2014 09:07 EGFR (MDRD) >60 mL/min 11/27/2014 09:07 EGFR (MDRD) >60 mL/min/1.73m2 (>=60 - ) 11/27/2014 09:07 BUN (H) 23 mg/dL (6 - 20) 11/27/2014 09:07 Calcium Lvl 10.2 mg/dL (8.5 - 10.5) 11/27/2014 09:07 ALT 26 unit/L (9 - 52) 11/27/2014 09:07 Cholesterol 158 mg/dL (0 - 200) 11/27/2014 09:07 Trig 143 mg/dL (0 - 150) 11/27/2014 09:07 HDL 56.0 mg/dL (40.0 - 60.0) 11/27/2014 09:07 LDL Calculated 73 mg/dL (0 - 100) 11/27/2014 09:07 Chol/HDL Ratio 3 Source: [facility] POWERCHART Document Id: [id number] Electronically signed [facility] [id number] at 04/02/2017 1:54 PM CDT Brandin Malik M.D. - 11/27/2014 10:10 AM CST Results Notification Document Contains Addenda Addendum by IRVIN SALINAS LPN on 27 November 2014 16:25:46 SHEAR GRINDER OPERATOR HELPER called with results From: BRANDIN XIONG MD To: GRZEGORZ Xiong Nurse; Sent: 11/27/2014 10:10:08 SHEAR GRINDER OPERATOR HELPER ! Show up: 11/27/2014 10:10:08 SHEAR GRINDER OPERATOR HELPER Subject: Results Notification Actions: Notify patient of results Reminder Comments: GO TO ONE METFORMIN A DAY AND RECHECK IN may Results: Date Result Name Ind Value Ref Range 11/27/2014 09:13 UR WBC 4-10 /HPF (None Seen - ) 11/27/2014 09:13 UR RBC Occ-2 /HPF (None Seen - ) 11/27/2014 09:13 UR Bacteria (*) Present (None Seen - ) 11/27/2014 09:07 Hgb A1c (H) 6.0 % A1C ( - <=5.6) Source: [facility] POWERCHART Document Id: [id number] Electronically signed by Antonette, [facility] Lip And Gate Builder [id number] at 04/02/2017 1:54 PM CDT Brandin Malik M.D. - 11/27/2014 9:40 AM CST Results Notification Document Contains Addenda Addendum by IRVIN SALINAS LPN on 27 November 2014 16:25:59 SHEAR GRINDER OPERATOR HELPER called with results From: BRANDIN XIONG MD To: GRZEGORZ Xiong Nurse; Sent: 11/27/2014 09:40:05 SHEAR GRINDER OPERATOR HELPER ! Show up: 11/27/2014 09:40:05 SHEAR GRINDER OPERATOR HELPER Subject: Results Notification Actions: Notify patient of results Reminder Comments: OK Results: Date Result Name Ind Value Ref Range 11/27/2014 09:13 UA Color Yellow (Colorless - ) 11/27/2014 09:13 UA Clarity Clear (Clear - ) 11/27/2014 09:13 UA Spec Grav 1.025 11/27/2014 09:13 UA pH 6.0 (<5.0 - ) 11/27/2014 09:13 UA Protein Trace mg/dL (Negative - ) 11/27/2014 09:13 UA Glucose Negative mg/dL (Negative - ) 11/27/2014 09:13 UA Ketones (*) Trace mg/dL (Negative - ) 11/27/2014 09:13 UA Bili Negative (Negative - ) 11/27/2014 09:13 UA Urobilinogen 0.2 mg/dL (0.2 - ) 11/27/2014 09:13 UA Blood Negative (Negative - ) 11/27/2014 09:13 UA Nitrite Negative (Negative - ) 11/27/2014 09:13 UA Leuk Est (*) Small (Negative - ) 11/27/2014 09:07 Hgb 14.2 g/dL (12.0 - 15.5) Source: [facility] POWERCHART Document Id: [id number] Electronically signed by Antonette, [facility] Lip And Gate Builder [id number] at 04/02/2017 1:54 PM CDT Miscellaneous - Brandin Xiong M.D. - 11/27/2014 9:02 AM CST Ambulatory Patient Summary [address] [id number] Visit Information Name: FRANCES HAGER [facility] Number: [id number] Current Date: 11/27/2014 09:02:32 Physicians Attending Provider: BRANDIN XIONG MD Primary Care Provider: BRANDIN XIONG MD FRANCES HAGER has been given the [...] Tablet(s), Oral, once a day (at bedtime) clotrimazole-betamethasone topical (Lotrisone 1%-0.05% topical cream) 1 manny, Topical, two times a day cyanocobalamin (cyanocobalamin 1000 mcg oral tablet) See Instructions, Sublingual 1 tab(s) PO Daily 3 x a week divalproex sodium (Depakote) See Instructions 500mg in am and 1000mg in pm lisinopril (lisinopril 20 mg oral tablet) 2 Tablet(s), Oral, once a day loratadine (loratadine 10 mg oral tablet) 1 Tablet(s), Oral, once a day magnesium oxide (magnesium oxide) 250 mg, Oral, once a day metFORMIN (metFORMIN 500 mg oral tablet) 1 Tablet(s), Oral, two times a day with meals multivitamin with minerals (Ocuvite Lutein) Oral, once a day Stop Taking the Following Medications: Medication list as of 11-27-14 09:02 Attention: If you have any medications at home that are not on this list, DO NOT take them until youcontact your provider for clarification. Give a copy of your medication list to your primary care provider. Update your medication list any time medications or doses are changed and carry your medication list at all times in case of emergency. Electronically Signed By: BRANDIN XIONG MD Signed On:27-NOV-2014 09:02:04 Your Allergies & Intolerances Substance Reaction Symptoms Category Comments No Known Allergies Your Problem List Problem Status Onset Comments Combined hyperlipidemia Active 04/11/2013 HTN [Hypertension] Active 04/11/2013 DM II (or NOS), controlled Active 04/11/2013 Alcoholism Pers Hx Active Disorder Obsessive Compulsive Personality (OCPD) Active Your Upcoming Appointments Date Time Location Provider No Appointments found Attention: Contact your local Clinic if further appointment detail needed. [id number] Your High Blood Pressure Risk Factors Risk [...] lot of salty, fatty, fried, or greasy foods?If You Smoke Do you smoke cigarettes or cigars, chew tobacco, or dip snuff?How Active You Are Are you inactive most of the time at work and at home?Your Weight Has your doctor said that you are 15 or more pounds overweight?Your Stress Level Do you often feel anxious, nervous, and stressed? ?? [phone] [facility], [address] [place] [address], [place] [address]. All rights reserved. This information is not intended as a substitute for professional medical care. Always follow your healthcare professional's instructions. Your Goals/Additional instructions: This document has images extracted. Please consider using [employer] for all your patient education needs. Source: [facility] POWERCHART Document Id: [id number] R GRINDER OPERATOR HELPER Miscellaneous - Brandin Xiong M.D. - 11/27/2014 9:02 AM CST Ambulatory Discharge Medication List [address] [id number] Visit Information Name: FRANCES HAGER [facility] Number: [id number] Visit Date: 11/27/2014 09:02:30 Attending Provider: BRANDIN XIONG MD Primary Care Provider: BRANDIN XIONG MD FRANCES HAGER has been given the [...] Tablet(s), Oral, once a day (at bedtime) clotrimazole-betamethasone topical (Lotrisone 1%-0.05% topical cream) 1 manny, Topical, two times a day cyanocobalamin (cyanocobalamin 1000 mcg oral tablet) See Instructions, Sublingual 1 tab(s) PO Daily 3 x a week divalproex sodium (Depakote) See Instructions 500mg in am and 1000mg in pm lisinopril (lisinopril 20 mg oral tablet) 2 Tablet(s), Oral, once a day loratadine (loratadine 10 mg oral tablet) 1 Tablet(s), Oral, once a day magnesium oxide (magnesium oxide) 250 mg, Oral, once a day metFORMIN (metFORMIN 500 mg oral tablet) 1 Tablet(s), Oral, two times a day with meals multivitamin with minerals (Ocuvite Lutein) Oral, once a day Stop Taking the Following Medications: Medication list as of 11-27-14 09:02 Attention: If you have any medications at home that are not on this list, DO NOT take them until youcontact your provider for clarification. Give a copy of your medication list to your primary care provider. Update your medication list any time medications or doses are changed and carry your medication list at all times in case of emergency. Electronically Signed By: BRANDIN XIONG MD Signed On:27-NOV-2014 09:02:04 Additional Information: Source: [facility] POWERCHART Document Id: [id number] R GRINDER OPERATOR HELPER Irvin Her L.P.NLori - 11/27/2014 8:30 AM CST Health Assessment Health Assessment Entered On: 11/27/2014 8:30 SHEAR GRINDER OPERATOR HELPER Performed On: 11/27/2014 8:30 SHEAR GRINDER OPERATOR HELPER by IRVIN SALINAS LPN Health Assessment Complete Health Assessment Complete or Modified : Annual Health Assessment Annual Health Assessment Completed : Yes IRVIN SALINAS LPN - 11/27/2014 8:30 SHEAR GRINDER OPERATOR HELPER Nutrition Nutrition Risk Factors by History Adult : None SALINAS, IRVINPIERO HIGH LPN - 11/27/2014 8:30 SHEAR GRINDER OPERATOR HELPER Functional Current Daily Living Assistance : Transportation IRVIN SALINAS LPN - 11/27/2014 8:30 SHEAR GRINDER OPERATOR HELPER Dependent Habits Tobacco Use/Currently Using : No Exposure to Tobacco Smoke : Other: former smoker Smoking Status : Never smoker IRVIN SALINAS LPN - 11/27/2014 8:30 SHEAR GRINDER OPERATOR HELPER Caffeine Use Grid Caffeine Use : Current Type : Coffee IRVIN SALINAS LPN - 11/27/2014 8:30 SHEAR GRINDER OPERATOR HELPER Recreational Drug Use Grid Drug Use : None IRVIN SALINAS LPN - 11/27/2014 8:30 SHEAR GRINDER OPERATOR HELPER Psychosocial Domestic Abuse Concerns : None Synagogue Preference : No qualifying data available. SALINASIRVIN CHAMPION LPN - 11/27/2014 8:30 SHEAR GRINDER OPERATOR HELPER Advance Directive Advanced Directives : No Advance Directive Additional Information : No IRVIN SALINAS LPN - 11/27/2014 8:30 SHEAR GRINDER OPERATOR HELPER Educ Needs Learning Style Preference Adult Grid Patient : Verbal explanation, Printed materials Family : Verbal explanation, Printed materials SARAH IRVINPIERO HIGH LPN - 11/27/2014 8:30 SHEAR GRINDER OPERATOR HELPER Source: [facility] POWERCHART Document Id: [id number] SHEAR GRINDER OPERATOR HELPER!29 R GRINDER OPERATOR HELPER Irvin Her L.P.N. - 11/27/2014 8:27 AM CST Adult Bit Tapper Intake/History Adult Bit Tapper Intake/History Entered On: 11/27/2014 8:30 SHEAR GRINDER OPERATOR HELPER Performed On: 11/27/2014 8:27 SHEAR GRINDER OPERATOR HELPER by IRVIN SALINAS LPN Intake Chief Complaint : complete exam Temperature Core : 36.7 DegC(Converted to: 98.1 DegF) Peripheral Pulse Rate : 60 /min Respiratory Rate : 16 /min Heart Rhythm : Regular Systolic Blood Pressure : 110 mmHg Diastolic Blood Pressure : 64 mmHg NIBP Mean : 79 mmHg BP Location : Left upper extremity Blood Pressure Cuff Size : Large Height : 159 cm(Converted to: 5 ft 3 inch(es), 63 inch(es)) Actual Weight : 90 kg(Converted to: 198 lb 7 oz) Weight Source : Standing scale Dosing Weight Clinic : 90 kg Clinic BSA : 1.99 Body Mass Index : 35.6 kg/m2 IRVIN SALINAS LPN - 11/27/2014 8:27 SHEAR GRINDER OPERATOR HELPER General Info Information Given By : Patient Languages : Citizen Of [place] Is Patient Female and 13-50 no hysterectomy : No IRVIN SALINAS LPN - 11/27/2014 8:27 SHEAR GRINDER OPERATOR HELPER Subjective Pain Symptoms : No IRVIN SALINAS LPN - 11/27/2014 8:27 SHEAR GRINDER OPERATOR HELPER Dependent Habits Tobacco Use/Currently Using : No Exposure to Tobacco Smoke : Other: former smoker Smoking Status : Never smoker IRVIN SALINAS LPN - 11/27/2014 8:27 SHEAR GRINDER OPERATOR HELPER Caffeine Use Grid Caffeine Use : Current Type : Coffee IRVIN SALINAS LPN - 11/27/2014 8:27 SHEAR GRINDER OPERATOR HELPER Recreational Drug Use Grid Drug Use : None IRVIN SALINAS LPN - 11/27/2014 8:27 SHEAR GRINDER OPERATOR HELPER ID Screen Drug Resistant Organism : Yes Travel Within Last 21 Days : No IRVIN SALINAS LPN - 11/27/2014 8:27 SHEAR GRINDER OPERATOR HELPER Source: [facility] POWERCHART Document Id: [id number] SHEAR GRINDER OPERATOR HELPER!38 R GRINDER OPERATOR HELPER documented in this encounter Plan of Treatment Upcoming Encounters Date Type Specialty Care Team Description 09/27/2022 Office Visit Dermatology Marianela Braden M.D. [address] [place] [address] [phone] (Wo rk) documented as of this encounter Procedures Procedure Name Priority Date/Time Associated Comments Diagnosis BACTERIAL CULTURE, Routine 11/27/2014 9:14 Result s for this AEROBIC, URINE AM SHEAR GRINDER OPERATOR HELPER procedure are in the results section. URINALYSIS, MIDSTREAM, Routine 11/27/2014 9:13 Re sults for this WITH CULTURE IF AM SHEAR GRINDER OPERATOR HELPER procedure ar e in INDICATED the results section. ALBUMIN, RANDOM, U Routine 11/27/2014 9:13 Result s for this AM SHEAR GRINDER OPERATOR HELPER procedure are i n the results section. LIPID PANEL, S Routine 11/27/2014 9:07 Results fo r this AM SHEAR GRINDER OPERATOR HELPER procedure are i n the results section. HEMOGLOBIN, B Routine 11/27/2014 9:07 Results for this AM SHEAR GRINDER OPERATOR HELPER procedure are i n the results section. ALANINE AMINOTRANSFERASE Routine 11/27/2014 9:07 Results for this (ALT), S/P AM SHEAR GRINDER OPERATOR HELPER procedure are i n the results section. THYROID-STIMULATING Routine 11/27/2014 9:07 Resul ts for this HORMONE-SENSITIVE AM SHEAR GRINDER OPERATOR HELPER procedure are in (S-TSH) the results section. HEMOGLOBIN A1C, B Routine 11/27/2014 9:07 Results for this AM SHEAR GRINDER OPERATOR HELPER procedure are i n the results section. BASIC METABOLIC PANEL, Routine 11/27/2014 9:07 Re sults for this S/P AM SHEAR GRINDER OPERATOR HELPER procedure are i n the results section. documented in this encounter Results Bacterial Culture, Aerobic, Urine (11/27/2014 9:14 AM SHEAR GRINDER OPERATOR HELPER) [facility] Method Time Signature Bacterial POWERCHART Culture, Aerobic, Urine HXFinal 3000 POWERCHART colonies/ml gram negative rods HXFinal No further POWERCHART studies done. Specimen Anatomical Collection Method Collection Time Receive d Time (Source) Location / / Volume Laterality Urine, First 11/27/2014 9:14 AM 5 9:14 Voided SHEAR GRINDER OPERATOR HELPER AM SHEAR GRINDER OPERATOR HELPER Brandin Xiong M.D. LAB MICROBIOLOGY - GENERAL O RDERABLES Performing Organization Address City/State/ZIP Code Phon e Number POWERCHART Microalbumin, Random, Urine (11/27/2014 9:13 AM SHEAR GRINDER OPERATOR HELPER) P athologist Signature HXU Albumin % 48 MGDL POWERCHART Creatinine, 214 MGDL POWERCHART Random, U Albumin/Creatin 22 0 - 25 MGGM POWERCHART ine Ratio Specimen (Source) Anatomical Collection Method Collection Time Re ceived Time Location / / Volume Laterality Urine 11/27/2014 9:13 AM SHEAR GRINDER OPERATOR HELPER Brandin Xiong M.D. LAB URINE ORDERABLES Performing Organization Address [facility] Phon e Number POWERCHART (ABNORMAL) Urinalysis, Midstream, with culture if indicated (11/27/2014 9:13 AM SHEAR GRINDER OPERATOR HELPER) [facility] gist Method Time Signature HXUr Color Yellow Colorless POWERCHART Clarity Clear Clear POWERCHART Glucose Negative Negative POWERCHART MGDL HXBILIRUBIN Negative Negative POWERCHART Ketones, QL(U) Trace (A) Negative POWERCHART MGDL Specific 1.025 POWERCHART [place], POCT, U HXBLOOD Negative Negative POWERCHART pH, POCT, Urine 6.0 <5.0 POWERCHART Protein, Ur, Trace Negative POWERCHART Dip MGDL Urobilinogen 0.2 0.2 MGDL POWERCHART HXNITRITE Negative Negative POWERCHART Leukocyte Small (A) Negative POWERCHART Esterase HXUR WBC. 4-10 None Seen POWERCHART HPF HXUR RBC. Occ-2 None Seen POWERCHART HPF HXUR Bacteria, Present (A) None Seen POWERCHART Specimen (Source) Anatomical Collection Method Collection Time Re ceived Time Location / / Volume Laterality Urine, First 11/27/2014 9:13 AM Voided SHEAR GRINDER OPERATOR HELPER Brandin Xiong M.D. LAB URINE ORDERABLES Performing Organization Address [facility] Phon e Number POWERCHART Hemoglobin (11/27/2014 9:07 AM SHEAR GRINDER OPERATOR HELPER) athologist Signature Hemoglobin 14.2 12.0 - 15.5 POWERCHART GDL Specimen (Source) Anatomical Collection Method Collection Time Re ceived Time Location / / Volume Laterality Blood 11/27/2014 9:07 AM SHEAR GRINDER OPERATOR HELPER Brandin Xiong M.D. LAB BLOOD ADD-ON Performing Organization Address [facility] Phon e Number POWERCHART Thyroid-Stimulating Hormone-Sensitive (s-TSH) (11/27/2014 9:07 AM SHEAR GRINDER OPERATOR HELPER) P athologist Signature TSH 2.81 0.27 - 4.20 POWERCHART (Thyrotropin) MIUL Specimen (Source) Anatomical Collection Method Collection Time Re ceived Time Location / / Volume Laterality Blood 11/27/2014 9:07 AM SHEAR GRINDER OPERATOR HELPER Brandin Xiong M.D. LAB BLOOD ADD-ON Performing Organization Address City/State/ZIP Code Phon e Number POWERCHART Lipid Panel (11/27/2014 9:07 AM SHEAR GRINDER OPERATOR HELPER) Analysis Performed At Patho logist Time Signature Cholesterol, Total 158 0 - 200 POWERCHART MGDL HX HDL 56.0 40.0 - POWERCHART 60.0 MGDL Triglycerides 143 0 - 150 POWERCHART MGDL Calculated LDL 73 0 - 100 POWERCHART MGDL Total 3 POWERCHART Cholesterol/HDL Ratio Specimen (Source) Anatomical Collection Method Collection Time Re ceived Time Location / / Volume Laterality Blood 11/27/2014 9:07 AM SHEAR GRINDER OPERATOR HELPER Brandin Xiong M.D. LAB BLOOD ADD-ON Performing Organization Address City/State/ZIP Code Phon e Number POWERCHART (ABNORMAL) BMP (Basic Metabolic Panel) (11/27/2014 9:07 AM SHEAR GRINDER OPERATOR HELPER) P athologist Signature BUN (Blood Urea 23 (H) 6 - 20 POWERCHART Nitrogen), S MGDL Creatinine 0.9 0.7 - 1.2 POWERCHART MGDL Potassium, S 5.4 (H) 3.5 - 4.8 POWERCHART MMOLL Sodium, S 138 135 - 145 POWERCHART MMOLL Chloride, S 98 (L) 100 - 108 POWERCHART MMOLL CO2 Total 32 (H) 22 - 30 POWERCHART MMOLL Calcium, Total, 10.2 8.5 - 10.5 POWERCHART S MGDL HXeGFR (MDRD) >60 MLMIN POWERCHART eGFR >60 >=60 POWERCHART Black/ [id number] [place] Glucose, 87 70 - 99 POWERCHART Fasting, S MGDL Specimen (Source) Anatomical Collection Method Collection Time Re ceived Time Location / / Volume Laterality Blood 11/27/2014 9:07 AM SHEAR GRINDER OPERATOR HELPER Brandin Xiong M.D. LAB BLOOD ADD-ON Performing Organization Address City/State/ZIP Code Phon e Number POWERCHART ALT (Alanine Aminotransferase) (11/27/2014 9:07 AM SHEAR GRINDER OPERATOR HELPER) P athologist Signature Alanine 26 9 - 52 POWERCHART Amniotransferas UNITL e, LD Specimen (Source) Anatomical Collection Method Collection Time Re ceived Time Location / / Volume Laterality Blood 11/27/2014 9:07 AM SHEAR GRINDER OPERATOR HELPER Brandin Xiong M.D. LAB BLOOD ADD-ON Performing Organization Address City/State/ZIP Code Phon e Number POWERCHART (ABNORMAL) Hemoglobin A1c (11/27/2014 9:07 AM SHEAR GRINDER OPERATOR HELPER) P athologist Signature Hemoglobin A1c, 6.0 (H) <=5.6 A1C POWERCHART B Specimen (Source) Anatomical Collection Method Collection Time Re ceived Time Location / / Volume Laterality Blood 11/27/2014 9:07 AM SHEAR GRINDER OPERATOR HELPER Brandin Xiong M.D. LAB BLOOD ADD-ON Performing Organization Address City/State/ZIP Code Phon e Number POWERCHART documented in this encounter Visit Diagnoses Not on filedocumented in this encounter Additional Health Concerns Assessment Noted Time PHQ-9 Depression Total Score: 3 05/05/2014 7:55 AM CDT documented as of this encounter
--- OUTSIDE RECORDS SUMMARY | 2022-08-14 22:59 | XMS_ITS | Encounter Summary ---
:1945 Author Organization [facility] Address [address] [place] [address] Care Team Providers Name Role Phone Unavailable Primary Care Provider Unavailable Encounter Details Date Type Department Care Team Description 02/27/2014 Hospital Encounter HX [facility] INTERNMED Jairo Kruger M.D. [address] [place] [address] 021 (Wo rk) Social History Tobacco Use Types Packs/Day Years Used Date Smoking Tobacco: Never Assessed Sex Assigned at Date Recorded Not on file documented as of this encounter Last Filed Vital Signs Vital Sign Reading Time Taken Comments Blood Pressure 116/66 02/27/2014 1:02 PM CDT Pulse 80 02/27/2014 1:02 PM CDT Temperature - - Respiratory Rate 20 02/27/2014 1:02 PM CDT Oxygen Saturation - - Inhaled Oxygen Concentration - - Weight 92.2 kg (203 lb 4.2 oz) 02/27/2014 1:02 PM CDT Height - - Body Mass Index 36.02 11/25/2013 9:03 AM DESKTOP SUPPORT MANAGER documented in this encounter Progress Notes Brandin Kruger M.D. - 02/27/2014 12:55 PM CDT [id number] Ms. Meek presents today with a lot of different issues. Basically we started with trying to get clarification on how much she could drink. Well the point is I asked openly is there a drinking problem and there is. She is drinking way too much again. The number of problems are really multiple. 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 At 4 a.m. an Easter morning she was flat on her back on the kitchen floor probably from drinking. She has bowel leakage stains on sheets and underwear, probably from drinking. She is sleeping 10 to 11 hour a day. She has elements of obsessive compulsive disorder with excessive shopping, spending, clutter in the house and negligence in putting things away. She herself talksa lot about anxiety. The situation is getting out of control. Family called Venkat and Venkat felt she needed a psychiatrist and I would wholeheartedly agree she does need a psychiatrist. The problem is it is very hardto get into psychiatrists. IMPRESSION/REPORT/PLAN We focused after a long discussion today and on basically 3 components to get started. 1. I will place her on a medicine, paroxetine 20 mg daily for obsessive compulsive and anxiety and depression. I warned that it would take 2 to 4 weeks to be effective. 2. She needs to stop drinking completely and needs to get alcohol out of the house. 3. We will make an appointment down at [place] with Psychiatry. I think that the main issue here is substance abuse and until that gets treated we are not going to be able to make any progress. It was very difficult interview. Time component was 40 minutes. She will return in 1 month to recheck on her paroxetine and we will try to get her in with the psychiatrist as soon as possible. Brandin Kruger M.D./cipriano Electronically Signed By: BRANDIN KRUGER MD On: 02/27/2014 03:15 PM Source: [facility] MHSDOLBEYNONRADSYS Document Id: [id number] documented in this encounter Miscellaneous Notes Miscellaneous - Angelica Snyder RLoriNLori - 03/10/2014 4:16 PM CDT Medication Refill Msg Document Contains Addenda Addendum by BRANDIN KRUGER MD on 10 Mar 2014 20:34:28 CDT From: BRANDIN KRUGER MD To: ANGELICA SNYDER; Sent: 03/10/2014 20:34:28 CDT Subject: RE: Medication Refill Msg we called the pharm and told them to ignore the 850 and fill the 500! From: ANGELICA SNYDER To: BRANDIN KRUGER MD; Sent: 03/10/2014 16:16:31 CDT Subject: Medication Refill Msg Caller is: ( ) Patient ( ) Mother ( ) Father ( ) Spouse ( ) Daughter ( ) Son ( ) Pharmacy ( ) Other: Provider: [facility]: [facility] Name of Medications Needing Refill:metformin 850 mg or 500mg pharmacy received both -- the 850 is completed Last Refill Date: Additional Information: Last / Future Appointment: Disposition: ( ) Send to Pharmacy ( ) Call to Pharmacy ( ) Patient will roller picker Script ( ) Mail Rx to Patient Source: [facility] POWERCHART Document Id: [id number] Electronically signed by [facility] Developer Evangelist [id number] at 04/03/2017 9:39 PM CDT Miscellaneous - Dary Wilkins, L.P.N. - 02/27/2014 1:02 PM CDT Adult Men'S Swim Coach Intake/History Document Has Been Updated Adult Men'S Swim Coach Intake/History Entered On: 02/27/2014 13:08 CDT Performed On: 02/27/2014 13:02 CDT by DARY WILKINS Intake Chief Complaint : Mulitple issues. Anxiety, substance abuse. Phlegm in throat in mornings and continues during day -been expelling it. Sleeping 11 to 12 hours a day. Back and knee issues. DARY WILKINS - 02/27/2014 13:09 CDT Temperature Core : 36.8 DegC(Converted to: 98.2 DegF) Peripheral Pulse Rate : 80 /min Respiratory Rate : 20 /min Systolic Blood Pressure : 116 mmHg Diastolic Blood Pressure : 66 mmHg NIBP Mean : 83 mmHg BP Location : Left upper extremity Blood Pressure Cuff Size : Regular Actual Weight : 92.2 kg(Converted to: 203 lb 4 oz) Weight Source : Standing scale Dosing Weight Clinic : 92.2 kg DARY WILKINS - 02/27/2014 13:02 CDT General Info Information Given By : Patient Preferred Communication Mode : Verbal Languages : Chilean WILKINSDARY - 02/27/2014 13:02 CDT Subjective Pain Symptoms : No WILKINSDARY 02/27/2014 13:02 CDT Dependent Habits Tobacco Use/Currently Using : No Tobacco Use/Last 12 months : No Exposure to Tobacco Smoke : Other: former smoker Smoking Status : Former smoker DARY WILKINS 02/27/2014 13:02 CDT Caffeine Use Grid Caffeine Use : Current Type : Coffee WILKINSDARY Smith 02/27/2014 13:02 CDT Recreational Drug Use Grid Drug Use : None DARY WILKINS 02/27/2014 13:02 CDT Source: [employer] Document Id: [id number]!3 documented in this encounter Plan of Treatment Upcoming Encounters Date Type Specialty Care Team Description 09/27/2022 Office Visit Dermatology Marianela Braden M.D. [address] [place], [place] [phone] (Wo rk) documented as of this encounter Visit Diagnoses Not on filedocumented in this encounter
--- OUTSIDE RECORDS SUMMARY | 2022-08-14 22:59 | XMS_ITS | Encounter Summary ---
:1945 Author Organization [facility] Address [address] [place] [address] Care Team Providers Name Role Phone Unavailable Primary Care Provider Unavailable Encounter Details Date Type Department Care Team Description 04/11/2013 Hospital Encounter HX [facility] INTERNMED Jairo Kruger M.D. [address] [place] [address] 021 (Wo rk) Social History Tobacco Use Types Packs/Day Years Used Date Smoking Tobacco: Never Assessed Sex Assigned at Date Recorded Not on file documented as of this encounter Last Filed Vital Signs Vital Sign Reading Time Taken Comments Blood Pressure 128/72 04/11/2013 10:34 AM CDT Pulse 80 04/11/2013 10:34 AM CDT Temperature - - Respiratory Rate - - Oxygen Saturation - - Inhaled Oxygen Concentration - - Weight 93.5 kg (206 lb 2.1 oz) 04/11/2013 10:34 AM CDT Height 160 cm (5' 2.99) 04/11/2013 10:34 AM CDT Body Mass Index 36.52 04/11/2013 10:34 AM CDT documented in this encounter Progress Notes Brandin Kruger M.D. - 04/11/2013 10:23 AM CDT [id number] CHIEF COMPLAINT / REASON FOR VISIT New patient to my practice. Ms. Hager presents today. I initially interviewed her for about 20 minutes and then three family members, two daughters and a came in and we continued discussion fortotal of 45 minutes. There was no examination performed. The entire time was discussion. On a routine front, the patient has diabetes and is on the usual medications. I am not sure when her last labs were done but we have to be careful unless Medicare not pay for them. She is said to have had good control of her diabetes and she treats for hyperlipidemia and hypertension. All these things seem to be under control. The main issues that occupied the bulk of the 45-minute discussion were psychological issues and they account for three. a. The patient has had episodes where she seems to be losing memory and speaking in non-cogent ways.I did not find that talking to her today but the family gives examples of a trip she went on where this was in evidence. There is a family history of Alzheimer's disease and there is concern about that. b. The patient is a heavy alcohol user and has abuse patterns with her drinking, hiding bottles and hiding her drinking. She uses alcohol to handle emotional conditions. All of these are extreme risk factors for alcoholism. I do not know if she is alcoholic or not. What I recommended after much discussion is that the take over control of the alcohol and she get no more than 2 ounces of scotch, which is her drink of preference, daily and nothing more. c. She has obsessive compulsive traits and her house has had problems with food hoarding, etc. This is difficult and I am going to have to refer her to a psychological group, both for chemical dependency counseling and for OC hoarding. I will use the [facility] here in [place]. IMPRESSION/REPORT/PLAN Her diabetes, hypertension and dyslipidemia are under good control. She is overdue and has in fact never had a screening colonoscopy. That will be scheduled. She is current on bone DEXA scan and mammogram. I will schedule her with these at [facility] for obsessive compulsive behavior and chemical dependency. I restricted her alcohol to 2 ounces of spirit once a day and if she cannot conform to that then she will be called alcoholic and she should seek chemical dependency counseling as well. For her memory loss and history of dementia in the family, [facility] and also a B12, folate and TSH today. I have asked them to call neurology in [place], [place] or [place] as it is impossible to get in in [place] and see if she can be gotten in. So in all today, she had a BMP, a B12 and folate, a hepatic panel and studies scheduled, a colonoscopy, a CT head of contrast, and they are scheduled to make an appointment with [facility] here in [place] and also try with Dr. Salomon for neurology in [facility]. I will set her up in two weeks for a complete physical here. Time component 45 minutes. Brandin Kruger M.D./charlotte Electronically Signed By: BRANDIN KRUGER MD On: 04/16/2013 07:00 AM Source: [facility] MHSDOLBEYNONRADSYS Document Id: [id number] documented in this encounter Nursing Notes Prosper Brunner - 04/23/2013 10:47 AM CDT Prior Authorization [facility] [place] [address] Referral Authorization: Procedure or visit authorized for: Colonoscopy (CPT code G0121 per Aide Samson) Referred by: Dr. Moe Kruger Contact Location: [facility] Contact Referred to: Dr. Alegre Contact Location: [facility] Contact Authorization Needed: yes or ____x__ no If yes, Referral valid: From: To: Number of visits approved for: Authorized by: Heidy Contact Number: Date Authorized: 04/23/2013 Reference Number: or ___x__ not applicable per Tobacco Weigher. Individual that received the Referral Authorization: LML Electronically Signed By: PROSPER BRUNNER On: 04/23/2013 10:48 AM Source: [facility] POWERCHART Document Id: [id number] Prosper Brunner - 04/17/2013 1:45 PM CDT Colonoscopy DATE: 04/17/2013 SCHEDULED FOR: Colonoscopy AT [facility] WITH DR. ALEGRE DATE of Procedure: 04/25/2013 TIME of Procedure: 9:45 PER: DARVIN /DR. SCHAEFFER ORDERS. Prep instructions have been sent to the patient. Patient advised to not take aspirin or ibuprofen for 10 days prior to the scheduled procedure. Insurance referral done _x_Yes __No Copies of referring healthcare provider notes sent to [facility]. Electronically Signed By: PROSPER BRUNNER On: 04/17/2013 01:45 PM [facility] Document Id: [id number] Prosper Brunner - 04/12/2013 10:[address] [facility] [place] [address] Patient Communication for follow up treatment for: __Colonoscopy __ Attempt made to contact patient made on: ___04/12/13 . a. Patient is schedule to be seen on: . b. Patient is refusing recommended treatment at this time. c. ___x__ Message left for the patient at : ____[phone]____jm return call to: Prosper Brunner LPN at [phone]. d. Individual that has contacted the patient: Prosper Brunner LPN. After the following situations: ?? Patient Scheduled ?? Patient Refusal ?? No Return Phone call after the third failed attempt Follow up communication will occur to the referring provider as follows. Referring Provider: Contacted on: Contacted as follows: Voice Message Fax Message Center via the EMR Individual that has contacted the Recommended Provider: Electronically Signed By: PROSPER BRUNNER On: 04/12/2013 10:21 AM Source: [facility] Document Id: [id number] documented in this encounter Miscellaneous Notes Miscellaneous - Prosper Brunner - 04/17/2013 1:47 PM CDT General Message From: PROSPER BRUNNER ( Surgery Nurse) To: BRANDIN KRUGER MD; Sent: 04/17/2013 13:47:31 CDT Subject: General Message Pt scheduled for colonoscopy on April 25. Source: [facility] Document Id: [id number] Miscellaneous - Brandin Kruger M.D. - 04/12/2013 9:05 AM CDT Results Notification Document Contains Addenda Addendum by IRVIN SALINAS LPN on 12 April 2013 16:32:53 CDT called with results From: BRANDIN KRUGER MD To: IRVIN SALINAS LPN; Sent: 04/12/2013 09:05:50 CDT ! Show up: 04/12/2013 14:05:50 [facility] Subject: Results Notification Actions: Notify patient of results Reminder Comments: okl Results: Date Result Name Ind Value Ref Range 04/11/2013 11:39 Vitamin B12 Lvl-Scott (H) 1,350 ng/L (180 - 914 - ) 04/11/2013 11:39 Folate Lvl-Scott >20.0 mcg/L (>=4.0 - ) 04/11/2013 11:39 TSH, Sensitive-Scott 1.0 mIU/L (0.3-5.0 - ) Source: C[facility] Document Id: [id number] Electronically signed by Conversion, [facility] Densitometrist [id number] at 04/04/2017 11:25 PM CDT Miscellaneous - Brandin Kruger M.D. - 04/11/2013 12:46 PM CDT Results Notification Document Contains Addenda Addendum by IRVIN SALINAS LPN on 12 April 2013 16:32:40 CDT called with results From: BRANDIN KRUGER MD To: IRVIN SALINAS LPN; Sent: 04/11/2013 12:46:09 CDT ! Show up: 04/11/2013 17:46:09 [facility] Subject: Results Notification Actions: Notify patient of results Reminder Comments: liver tests elevated suggesting excess alcohol use Results: Date Result Name Ind Value Ref Range 04/11/2013 11:39 Sodium Lvl (L) 130 mmol/L (135 - 145) 04/11/2013 11:39 Potassium Lvl (H) 5.5 mmol/L (3.5 - 4.8) 04/11/2013 11:39 Chloride (L) 88 mmol/L (100 - 108) 04/11/2013 11:39 CO2 (H) 31 mmol/L (22 - 29) 04/11/2013 11:39 Alkaline Phosphatase 116 unit/L (50 - 130) 04/11/2013 11:39 Glucose Lvl 112 04/11/2013 11:39 Creatinine 0.9 mg/dL (0.7 - 1.2) 04/11/2013 11:39 EGFR (MDRD) >60 mL/min 04/11/2013 11:39 EGFR (MDRD) >60 mL/min 04/11/2013 11:39 BUN 18 mg/dL (6 - 20) 04/11/2013 11:39 Calcium Lvl 10.5 mg/dL (8.5 - 10.5) 04/11/2013 11:39 Protein Total 7.0 mg/dL (6.3 - 8.2) 04/11/2013 11:39 Albumin Lvl 4.3 gm/dL (3.5 - 5.0) 04/11/2013 11:39 AST (H) 69 unit/L (8 - 43) 04/11/2013 11:39 ALT (H) 72 unit/L (9 - 52) 04/11/2013 11:39 Bili Total 0.7 mg/dL (0.1 - 1.0) 04/11/2013 11:39 Bili Direct 0.2 mg/dL (0.0 - 0.3) Source: [facility] POWERCHART Document Id: [id number] Electronically signed by Conversion, [facility] Densitometrist [id number] at 04/04/2017 11:25 PM CDT Miscellaneous - Brandin Kruger M.D. - 04/11/2013 11:21 AM CDT Ambulatory Patient Summary [address] [address] Visit Information Name: [facility] HAG[facility] Number: [id number] Current Date: 04/11/2013 11:21:53 Physicians Attending Provider: BRANDIN KRUGER MD Primary Care Provider: BRANDIN KRUGER MD Your Medications Here is a list of your medications. It is important to take your medications as directed. Use a pillbox or chart to help remind you to take your medications. Please let your doctor or nurse know if you have problems taking your medications. Medication/Strength Dose Route Frequency Indications/Special Instructions/Comments multivitamin (multivitamin) Oral once a day aspirin (aspirin 325 mg oral tablet) 325 mg Oral once a [place] [facility] [place] (omega 3 fatty acids-fish) 664/1200mg 1 po bid multivitamin with minerals (Ocuvite Lutein oral capsule) 1 cap(s) Oral once a day cyanocobalamin (cyanocobalamin 1000 mcg oral tablet) See Instructions 1 tab(s) PO Daily 3 x a week atorvastatin (Lipitor 40 mg oral tablet) 40 mg Oral once a day (at bedtime) hydrochlorothiazide (hydrochlorothiazide 25 mg oral tablet) 25 mg Oral once a day atenolol (atenolol 50 mg oral tablet) 50 mg Oral once a day metformin (metformin 850 mg oral tablet) 850 mg Oral two times a day with meals lisinopril (Zestril 40 mg oral tablet) 40 mg Oral once a day Attention: If you have any medications at home that are not on this list, DO NOT take them until youcontact your provider for clarification. Your Allergies & Intolerances Substance Reaction Symptoms Category Comments penicillins Drug Your Problem List Problem Status Onset Comments Combined hyperlipidemia Active 04/11/2013 Diabetes mellitus type II Active 04/11/2013 HTN [Hypertension] Active 04/11/2013 Your Upcoming Appointments Date Time Location Reason Provider No Appointments found Your Goals/Additional instructions: Source: [facility] POWERCHART Document Id: [id number] Miscellaneous - Brandin Kruger M.D. - 04/11/2013 11:21 AM CDT Ambulatory Depart Summary [address] [address] Visit Information Name: [facility] Number: [id number] Visit Date: 04/11/2013 11:21:52 Attending Provider: BRANDIN KRUGER MD Primary Care Provider: BRANDIN KRUGER MD MADANHUMABE has been given the following list of medications: Your Medications It is important to take your medications as directed. Use a pill box or chart to help remind you to take your medications. Please let your doctor or nurse know if you have problems taking your medications. Medication/Strength Dose Route Frequency Indications/Special Instructions/Comments multivitamin (multivitamin) Oral once a day aspirin (aspirin 325 mg oral tablet) 325 mg Oral once a [place] [facility] [place] (omega 3 fatty acids-fish) 664/1200mg 1 po bid multivitamin with minerals (Ocuvite Lutein oral capsule) 1 cap(s) Oral once a day cyanocobalamin (cyanocobalamin 1000 mcg oral tablet) See Instructions 1 tab(s) PO Daily 3 x a week atorvastatin (Lipitor 40 mg oral tablet) 40 mg Oral once a day (at bedtime) hydrochlorothiazide (hydrochlorothiazide 25 mg oral tablet) 25 mg Oral once a day atenolol (atenolol 50 mg oral tablet) 50 mg Oral once a day metformin (metformin 850 mg oral tablet) 850 mg Oral two times a day with meals lisinopril (Zestril 40 mg oral tablet) 40 mg Oral once a day Attention: If you have any medications at home that are not on this list, DO NOT take them until youcontact your provider for clarification. Additional Information: Source: [facility] POWERCHART Document Id: [id number] Jimmie - Brandin Kruger M.D. - 04/11/2013 11:20 AM CDT General Message Document Contains Addenda Addendum by PROSPER BRUNNER on 12 April 2013 10:21:31 CDT Message left for pt to return call to schedule colonoscopy. From: BRANDIN KRUGER MD To: Surgery Nurse; Sent: 04/11/2013 11:20:43 CDT Subject: General Message Needs screening colon never had one. Source: [facility] POWERCHART Document Id: [id number] Electronically signed by Antonette [facility] Densitometrist [id number] at 04/04/2017 11:25 PM CDT Jimmie - Irvin Salinas L.P.N. - 04/11/2013 10:37 AM CDT Health Assessment Health Assessment Entered On: 04/11/2013 10:38 CDT Performed On: 04/11/2013 10:37 CDT by IRVIN SALINAS LPN Health Assessment Complete Health Assessment Complete or Modified : Annual Health Assessment Annual Health Assessment Completed : Yes IRVIN SLAINAS LPN - 04/11/2013 10:37 CDT Nutrition Nutrition Risk Factors by History Adult : None IRVIN SALINAS LPN - 04/11/2013 10:37 CDT Functional Current Daily Living Assistance : None IRVIN SALINAS LPN - 04/11/2013 10:37 CDT Dependent Habits Tobacco Use/Currently Using : No Smoking Status : Never smoker IRVIN SALINAS LPN - 04/11/2013 10:37 CDT Caffeine Use Grid Caffeine Use : Current Type : Coffee IRVIN SALINAS LPN - 04/11/2013 10:37 CDT Recreational Drug Use Grid Drug Use : None IRVIN SALINAS LENNOX MURPHY - 04/11/2013 10:37 CDT Psychosocial Domestic Abuse Concerns : None IRVIN SALINAS LENNOX MURPHY - 04/11/2013 10:37 CDT Advance Directive Advanced Directives : No IRVIN SALINAS LENNOX MURPHY - 04/11/2013 10:37 CDT Educ Needs Learning Style Preference Adult Grid Patient : Verbal explanation, Printed materials Family : Verbal explanation, Printed materials IRVIN SALIANS LPN - 04/11/2013 10:37 CDT Source: [facility] POWERCHART Document Id: [id number] CDT!26 Miscellaneous - Irvin Salinas L.PLoriNLori - 04/11/2013 10:34 AM CDT Adult Assistant Hvac Mechanic Intake/History Adult Assistant Hvac Mechanic Intake/History Entered On: 04/11/2013 10:37 CDT Performed On: 04/11/2013 10:34 CDT by IRVIN SALINAS LPN Intake Chief Complaint : new patient Temperature Core : 36.8 DegC(Converted to: 98.2 DegF) Peripheral Pulse Rate : 80 /min Heart Rhythm : Regular Systolic Blood Pressure : 128 mmHg Diastolic Blood Pressure : 72 mmHg NIBP Mean : 91 mmHg BP Location : Left upper extremity Blood Pressure Cuff Size : Large Height : 160 cm(Converted to: 5 ft 3 inch(es), 62.99 inch(es)) Actual Weight : 93.5 kg(Converted to: 206 lb 2 oz) Weight Source : Standing scale Dosing Weight Clinic : 93.5 kg Clinic BSA : 2.04 Body Mass Index : 36.52 kg/m2 IRVIN SALINAS LPN - 04/11/2013 10:34 CDT General Info Information Given By : Patient Languages : Sammarinese SALINAS IRVINPIERO HIGH LPN - 04/11/2013 10:34 CDT Subjective Pain Symptoms : No IRVIN SALINAS LPN - 04/11/2013 10:34 CDT Dependent Habits Tobacco Use/Currently Using : No Smoking Status : Former smoker Alcohol Use : Yes IRVIN SALINAS ANNEALER - 04/11/2013 10:34 CDT Caffeine Use Grid Caffeine Use : Current Type : Coffee IRVIN SALINAS ANNEALER - 04/11/2013 10:34 CDT Recreational Drug Use Grid Drug Use : None IRVIN SALINAS ANNEALER - 04/11/2013 10:34 CDT Source: [facility] POWERCHART Document Id: [id number] CDT!33 documented in this encounter Plan of Treatment Upcoming Encounters Date Type Specialty Care Team Description 09/27/2022 Office Visit Dermatology Marianela Braden M.D. [address] [place] [address] [phone] (Wo rk) documented as of this encounter Procedures Procedure Name Priority Date/Time Associated Diagnosis Comme nts HEPATIC FUNCTION Routine 04/11/2013 11:39 AM Resu lts for this PANEL, S CDT procedure are i n the results section. VITAMIN B12 AND Routine 04/11/2013 11:39 AM Resul ts for this FOLATE, S CDT procedure are i n the results section. THYROID-STIMULATING Routine 04/11/2013 11:39 AM R esults for this HORMONE-SENSITIVE CDT procedure are in (S-TSH) the results section. BASIC METABOLIC Routine 04/11/2013 11:39 AM Resul ts for this PANEL, S/P CDT procedure are i n the results section. documented in this encounter Results (ABNORMAL) Vitamin B12 Level and Folate (04/11/2013 11:39 AM CDT) P athologist Signature Vitamin B12 1350 (H) 180 - 914 POWERCHART Assay, S NGL Folate, S >20.0 >=4.0 MCGL POWERCHART Comment: Test Performed by: [facility] [address] [place] [id number] Transport Pilot: Gustavo vargas III, M.D. Specimen (Source) Anatomical Collection Method Collection Time Re ceived Time Location / / Volume Laterality Blood 04/11/2013 11:39 AM CDT Brandin Kruger M.D. LAB BLOOD NON ADD-ON Performing Organization Address City/[facility]/ZIP Code Phon e Number POWERCHART Thyroid-Stimulating Hormone-Sensitive (s-TSH) (04/11/2013 11:39 AM CDT) athologist Signature TSH, Sensitive 1.0 0.3 - 5.0 POWERCHART MIUL Comment: Test Performed by: [place] [address] Transport Pilot: Gustavo vargas III, M.D. Specimen (Source) Anatomical Collection Method Collection Time Re ceived Time Location / / Volume Laterality Blood 04/11/2013 11:39 AM CDT Brandin Kruger M.D. LAB BLOOD ADD-ON Performing Organization Address [facility] Phon e Number POWERCHART (ABNORMAL) Hepatic Function Panel (04/11/2013 11:39 AM CDT) [facility] Method Time Signature Albumin, S 4.3 3.5 - 5.0 POWERCHART GMDL Alkaline 116 50 - 130 POWERCHART Phosphatase, S UNITL Aspartate 69 (H) 8 - 43 POWERCHART Aminotransferase UNITL (AST), S Alanine 72 (H) 9 - 52 POWERCHART Amniotransferase, LD UNITL Bilirubin, Total, S 0.7 0.1 - 1.0 POWERCHART MGDL Bilirubin, Direct, S 0.2 0.0 - 0.3 POWERCHAR T MGDL Total Protein, S 7.0 6.3 - 8.2 POWERCHART MGDL Specimen (Source) Anatomical Collection Method Collection Time Re ceived Time Location / / Volume Laterality Blood 04/11/2013 11:39 AM CDT Brandin Kruger M.D. LAB BLOOD ADD-ON Performing Organization Address City/[facility]/ZIP Code Phon e Number POWERCHART (ABNORMAL) BMP (Basic Metabolic Panel) (04/11/2013 11:39 AM CDT) P athologist Signature BUN (Blood Urea 18 6 - 20 POWERCHART Nitrogen), S MGDL Creatinine 0.9 0.7 - 1.2 POWERCHART MGDL Glucose 112 POWERCHART Potassium, S 5.5 (H) 3.5 - 4.8 POWERCHART MMOLL Sodium, S 130 (L) 135 - 145 POWERCHART MMOLL Chloride, S 88 (L) 100 - 108 POWERCHART MMOLL CO2 Total 31 (H) 22 - 29 POWERCHART MMOLL Calcium, Total, 10.5 8.5 - 10.5 POWERCHART S MGDL HXeGFR (MDRD) >60 MLMIN POWERCHART eGFR >60 MLMIN POWERCHART Black/ Specimen (Source) Anatomical Collection Method Collection Time Re ceived Time Location / / Volume Laterality Blood 04/11/2013 11:39 AM CDT Brandin Kruger M.D. LAB BLOOD ADD-ON Performing Organization Address City/State/ZIP Code Phon e Number POWERCHART documented in this encounter Visit Diagnoses Not on filedocumented in this encounter
--- OUTSIDE RECORDS SUMMARY | 2022-08-14 22:59 | XMS_ITS | Encounter Summary ---
:1945 Author Organization [facility] Address [address] [place] [address] Care Team Providers Name Role Phone Unavailable Primary Care Provider Unavailable Encounter Details Date Type Department Care Team Description 08/26/2014 Hospital Encounter HX [facility]HB INTERNMED Jairo Kruger M.D. [address] [place] [address] 021 (Wo rk) Social History Tobacco Use Types Packs/Day Years Used Date Smoking Tobacco: Never Assessed Sex Assigned at Date Recorded Not on file documented as of this encounter Last Filed Vital Signs Vital Sign Reading Time Taken Comments Blood Pressure 134/78 08/26/2014 8:58 AM CDT Pulse 60 08/26/2014 8:58 AM CDT Temperature - - Respiratory Rate 16 08/26/2014 8:58 AM CDT Oxygen Saturation - - Inhaled Oxygen Concentration - - Weight 91 kg (200 lb 9.9 oz) 08/26/2014 8:58 AM CDT Height 160 cm (5' 2.99) 08/26/2014 8:58 AM CDT Body Mass Index 35.55 08/26/2014 8:58 AM CDT documented in this encounter Medications at Time of Discharge Medication Sig Dispensed Refills Start Date End Date aspirin [address] tablet Take 1 tablet by mouth 0 03/14/2014 daily. documented as of this encounter Progress Notes Brandin Kruger M.D. - 08/26/2014 8:52 AM CDT [id number] She is checking after a visit to the emergency room on 08/21/2014. She went up there with left heel burning. She also, interestingly enough, had right heel burning. It then got warm and red and exquisitely painful in the left heel. They diagnosed cellulitis and gave her IM Rocephin and Keflex but the interesting thing is this is 08/26 so she is 5 days from this visit and she is completely back to normal. I have rarely seen, if ever, cellulitis get better that quickly. She also has had the pain down in the Achilles tendon and near the left lateral malleolus. She has had surgery recently to repair her shoulder. We had a long talk about this. It could have been gout so I will check a uric acid today. The 2 things I really cannot explain, gout untreated would not generally get better that quickly and cellulitistreated would not generally get better that quickly. It is also strange site for cellulitis being very much more distal than cellulitis usually is so we may never know the answer. One clue would be to see what the uric acid level is. If it is high, I would probably make the bet towards gout although Favio fully stating I cannot explain why it is better without treatment this quickly but gout can do things like that. MEDICATIONS Per [facility] EMR. ALLERGIES Per [facility] EMR. SYSTEMS REVIEW Review of systems in all areas except as mentioned above is negative. PREVENTIVE SERVICES: Per [facility] EMR. Handwashing done prior to patient contact. PAST MEDICAL/SURGICAL HISTORY Per [facility] EMR. VITAL SIGNS Per [facility] EMR. PHYSICAL EXAMINATION Examination of her heel reveals some tenderness in the region of the insertion of the Achilles tendon to the calcaneus but no warmth, no redness, excellent pulses and no swelling. IMPRESSION/REPORT/PLAN She has mild Achilles tendinitis today but no other abnormality to examination. I recommended she take 3 more days of Cephalothin as she is already getting diarrhea from it and we do not 100% know thiswas cellulitis. I will draw a uric acid and will call them with the result. If it is high, I would bet that this is probably gout but we would not treat with any preventive medicine with 1 attack and she does not need any acute medicines because she is better. Time component was 25 minutes, the majority counseling. Brandin Kruger M.D./cipriano Electronically Signed By: BRANDIN KRUGER MD On: 08/27/2014 07:32 AM Source: [facility] MHSDOLBEYNONRADSYS Document Id: [id number] documented in this encounter Miscellaneous Notes Miscellaneous - Angelica Snyder R.N. - 12/18/2014 9:18 AM CST Med Management Document Contains Addenda Addendum by BRANDIN KRUGER MD on 18 December 2014 09:24:08 HAND TUFTER From: BRANDIN KRUGER MD Sent: 12/18/2014 09:24:07 HAND TUFTER Subject: RE:Med Management Approved Order:lisinopril (lisinopril 40 mg oral tablet) 1 tab(s) PO Daily Qty: 90 tab(s) Refills: 3 Substitutions Allowed Route To [id number] Signed by BRANDIN KRUGER MD 12/18/2014 09:24:03 From: ANGELICA SNYDER To: BRANDIN KRUGER MD; Sent: 12/18/2014 09:18:23 HAND TUFTER Subject: Med Management On hold pending signature Order:lisinopril (lisinopril 40 mg oral tablet) 1 tab(s) PO Daily Qty: 90 tab(s) Refills: 3 Substitutions Allowed Route To [id number] Caller is: ( ) Patient ( ) Mother ( ) Father ( ) Spouse ( ) Daughter ( ) Son ( ) Pharmacy ( ) Other: Provider: Pharmacy: Name of Medications Needing Refill: Last Refill Date: Additional Information:patient would like script for lisinopril 40mg - one tab po daily in stead of lisinopril 20mg 2 tabs po daily so she only has to take one tab. i will propose. Last / Future Appointment: Disposition: ( ) Send to Pharmacy ( ) Call to Pharmacy ( ) Patient will warp picker Script ( ) Mail Rx to Patient Source: [facility] POWERCHART Document Id: [id number] Electronically signed by Antonette [facility] Supervisor [facility] [id number] at 04/04/2017 12:55 AM CDT Miscellaneous - Shani Hanson RBridget. - 09/29/2014 3:48 PM CST lisinopril Document Contains Addenda Addendum by BRANDIN KRUGER MD on 29 September 2014 15:48:49 HAND TUFTER From: BRANDIN KRUGER MD Sent: 09/29/2014 15:48:48 HAND TUFTER Subject: RE:lisinopril Approved Order:lisinopril (lisinopril 20 mg oral tablet) 2 tab(s) PO Daily Qty: 180 tab(s) Refills: 2 Substitutions Allowed Route To Pharmacy [id number] Signed by BRANDIN KRUGER MD 09/29/2014 15:48:44 From: SHANI HANSON ( Teller Medication Refill) To: BRANDIN KRUGER MD; Sent: 09/29/2014 15:48:22 HAND TUFTER Subject: lisinopril On hold pending signature Order:lisinopril (lisinopril 20 mg oral tablet) 2 tab(s) PO Daily Qty: 180 tab(s) Refills: 2 Substitutions Allowed Route To [id number] Documented Discontinue:lisinopril (lisinopril 40 mg oral tablet) Signed by SHANI HANSON 09/29/2014 15:47:41 Caller is: ( ) Patient ( ) Mother ( ) Father ( ) Spouse ( ) Daughter ( ) [facility] ( [facility] ( ) Other: Provider: Candace Kruger Pharmacy: Name of Medications Needing Refill: Lisinopril 20 mg-2 tabs po daily.... Last Refill Date: 07/02/14 qty 180 Additional Information:Med in EMR as HX.... Last / Future Appointment: 08/26/14; 10/08/14 Disposition: ( x ) Send to Pharmacy ( ) Call to Pharmacy ( ) Patient will warp picker Script ( ) Mail Rxto Patient Source: [facility] POWERCHART Document Id: [id number] Electronically signed by Conversion, [facility] Supervisor [facility] [id number] at 04/04/2017 12:55 AM CDT Brandin Malik M.D. - 08/26/2014 10:28 AM CDT Results Notification Document Contains Addenda Addendum by IRVIN SALINAS LPN on 27 August 2014 09:37:36 CDT called with results From: BRANDIN KRUGER MD Sent: 08/26/2014 10:28:43 CDT ! Show up: 08/26/2014 10:28:43 CDT Subject: Results Notification Actions: Notify patient of results Reminder Comments: ok Results: Date Result Name Value Ref Range 08/26/2014 09:37 Uric Acid 6.0 mg/dL (2.3 - 6.0) Source: [facility] [employer] Document Id: [id number] Electronically signed by Conversion, [facility] Supervisor [facility] [id number] at 04/04/2017 12:55 AM CDT Brandin Malik M.D. - 08/26/2014 9:33 AM CDT Ambulatory Patient Summary [address] [id number] Visit Information Name: FRANCES HAGER [facility] Number: [id number] Current Date: 08/26/2014 09:33:08 Physicians Attending Provider: BRANDIN KRUGER MD Primary [...] Tablet(s), Oral, once a day (at bedtime) cephalexin (cephalexin 500 mg oral tablet) 1 Tablet(s), Oral, four times a day x 14 day(s) clotrimazole-betamethasone topical (Lotrisone 1%-0.05% topical cream) 1 manny, Topical, two times a day cyanocobalamin (cyanocobalamin 1000 mcg oral tablet) See Instructions, Sublingual 1 tab(s) PO Daily 3 x a week divalproex sodium (Depakote) See Instructions 500mg in am and 1000mg in pm lisinopril (lisinopril 40 mg oral tablet) 1 Tablet(s), Oral, once a day loratadine (loratadine 10 mg oral tablet) 1 Tablet(s), Oral, once a day magnesium oxide (magnesium oxide) 250 mg, Oral, once a day metFORMIN (metFORMIN 500 mg oral tablet) 1 Tablet(s), Oral, two times a day with meals multivitamin with minerals (Ocuvite) 1 Tablet(s), Oral, once a day pantoprazole (pantoprazole 40 mg oral delayed release tablet) 1 Tablet(s), Oral, once a day Stop Taking the Following Medications: Medication list as of 08-26-14 09:33 Attention: If you have any medications at [...] Electronically Signed By: BRANDIN KRUGER MD Signed On:26-AUG-2014 09:31:54 Your Allergies & Intolerances Substance Reaction Symptoms Category Comments No Known Allergies Your Problem List Problem Status Onset Comments Combined hyperlipidemia Active 04/11/2013 HTN [Hypertension] Active 04/11/2013 DM II (or NOS), controlled Active 04/11/2013 Alcoholism Pers Hx Active Disorder Obsessive Compulsive Personality (OCPD) Active Your Upcoming Appointments Date Time Location Provider 10/08/2014 09:30 [facility] Brandin Kruger MD Attention: Contact your local Clinic if further appointment detail needed. What Is Gout? Gout is a disease that affects the joints. Left untreated, it can lead to painful foot deformity andeven kidney problems. The good news is that by treating gout early, you can relieve pain and help prevent future problems. Gout can usually be treated with medication and proper diet. In severe cases, s urgery may be needed. What Causes Gout? Gout is caused by an excess of uric acid (a waste product made by the body). The uric acid forms crystals that collect in the joints, bringing on a gout attack. If you have many gout attacks, crystals may form large deposits called tophi. Tophi can damage joints and cause deformity. Who Is at Risk for Gout? Men are more likely to have gout than women. But women can also be affected, mostly after menopause.Some health problems, such as obesity and high cholesterol, make gout more likely. And some medications, such as diuretics (water pills), can trigger a gout attack. People who drink a lot of alcohol are at high risk for gout. Certain foods can also trigger a gout attack. Foods That Trigger a Gout Attack To help prevent a gout attack, avoid these foods: ?? Alcohol (beer, red wine) ?? Certain meats (red meat, processed meat, turkey) ?? Organ meats (kidney, liver, sweetbread) ?? Shellfish (lobster, crab, shrimp, scallop, mussel) ?? Certain fish (anchovy, sardine, nielson, mackerel) ?? [id number], [place] [address]. All rights reserved. This information is not intended as a substitute for professional medical care. Always follow your healthcare professional's instructions. Your Goals/Additional instructions: This document has images extracted. Please consider using [employer] for all your patient education needs. Source: [facility] POWERCHART Document Id: [id number] Miscellaneous - Brandin Kruger M.D. - 08/26/2014 9:33 AM CDT Ambulatory Discharge Medication List [place] [id number] Visit Information Name: FRANCES HAGER [facility] Number: [id number] Visit Date: 08/26/2014 09:33:05 Attending Provider: BRANDIN KRUGER MD Primary Care [...] Tablet(s), Oral, once a day (at bedtime) cephalexin (cephalexin 500 mg oral tablet) 1 Tablet(s), Oral, four times a day x 14 day(s) clotrimazole-betamethasone topical (Lotrisone 1%-0.05% topical cream) 1 manny, Topical, two times a day cyanocobalamin (cyanocobalamin 1000 mcg oral tablet) See Instructions, Sublingual 1 tab(s) PO Daily 3 x a week divalproex sodium (Depakote) See Instructions 500mg in am and 1000mg in pm lisinopril (lisinopril 40 mg oral tablet) 1 Tablet(s), Oral, once a day loratadine (loratadine 10 mg oral tablet) 1 Tablet(s), Oral, once a day magnesium oxide (magnesium oxide) 250 mg, Oral, once a day metFORMIN (metFORMIN 500 mg oral tablet) 1 Tablet(s), Oral, two times a day with meals multivitamin with minerals (Ocuvite) 1 Tablet(s), Oral, once a day pantoprazole (pantoprazole 40 mg oral delayed release tablet) 1 Tablet(s), Oral, once a day Stop Taking the Following Medications: Medication list as of 08-26-14 09:33 Attention: If you have any medications at [...] Electronically Signed By: BRANDIN KRUGER MD Signed On:26-AUG-2014 09:31:54 Additional Information: Source: [facility] POWERCHART Document Id: [id number] Miscellaneous - Irvin Salinas L.P.N. - 08/26/2014 8:58 AM CDT Adult Stakeholder Manager Intake/History Adult Stakeholder Manager Intake/History Entered On: 08/26/2014 9:00 CDT Performed On: 08/26/2014 8:58 CDT by IRVIN SALINAS LPN Intake Chief Complaint : post ER check Peripheral Pulse Rate : 60 /min Respiratory Rate : 16 /min Heart Rhythm : Regular Systolic Blood Pressure : 134 mmHg Diastolic Blood Pressure : 78 mmHg NIBP Mean : 97 mmHg BP Location : Left upper extremity Blood Pressure Cuff Size : Large Height : 160 cm(Converted to: 5 ft 3 inch(es), 63 inch(es)) Actual Weight : 91 kg(Converted to: 200 lb 10 oz) Weight Source : Standing scale Dosing Weight Clinic : 91 kg Clinic BSA : 2.01 Body Mass Index : 35.55 kg/m2 IRVIN SALINAS LPN - 08/26/2014 8:58 CDT General Info Information Given By : Patient Languages : Nauruan Is Patient Female and 13-50 no hysterectomy : No IRVIN SALINAS LPN - 08/26/2014 8:58 CDT Subjective Pain Symptoms : No IRVIN SALINAS LPN - 08/26/2014 8:58 CDT Dependent Habits Tobacco Use/Currently Using : No Exposure to Tobacco Smoke : Other: former smoker Smoking Status : Never smoker IRVIN SALINAS LPN - 08/26/2014 8:58 CDT Caffeine Use Grid Caffeine Use : Current Type : Coffee IRVIN SALINAS LPN - 08/26/2014 8:58 CDT Recreational Drug Use Grid Drug Use : None IRVIN SALINAS LPN - 08/26/2014 8:58 CDT Source: [facility] POWERCHART Document Id: [id number] CDT!34 documented in this encounter Plan of Treatment Upcoming Encounters Date Type Specialty Care Team Description 09/27/2022 Office Visit Dermatology Marianela Braden M.D. [address] [place], [place] [phone] (Wo rk) documented as of this encounter Procedures Procedure Name Priority Date/Time Associated Diagnosis Comme nts URIC ACID, S/P Routine 08/26/2014 9:37 AM Results for this CDT procedure are i n the results section . documented in this encounter Results Uric Acid (08/26/2014 9:37 AM CDT) P athologist Signature Uric Acid, S 6.0 2.3 - 6.0 POWERCHART MGDL Specimen (Source) Anatomical Collection Method Collection Time Re ceived Time Location / / Volume Laterality Blood 08/26/2014 9:37 AM CDT Brandin Kruger M.D. LAB BLOOD ADD-ON Performing Organization Address City/State/ZIP Code Phon e Number POWERCHART documented in this encounter Visit Diagnoses Not on filedocumented in this encounter Additional Health Concerns Assessment Noted Time PHQ-9 Depression Total Score: 3 05/05/2014 7:55 AM CDT documented as of this encounter
--- OUTSIDE RECORDS SUMMARY | 2022-08-14 22:59 | XMS_ITS | Encounter Summary ---
:1945 Author Organization [facility] Address [address] [place] [address] Care Team Providers Name Role Phone Unavailable Primary Care Provider Unavailable Encounter Details Date Type Department Care Team Description 08/05/2014 Hospital Encounter HX [facility] FBHB INTERNMED Jairo Kruger M.D. [address] [place] [address] 021 (Wo rk) Social History Tobacco Use Types Packs/Day Years Used Date Smoking Tobacco: Never Assessed Sex Assigned at Date Recorded Not on file documented as of this encounter Last Filed Vital Signs Vital Sign Reading Time Taken Comments Blood Pressure 130/70 08/05/2014 9:19 AM CDT Pulse 60 08/05/2014 9:19 AM CDT Temperature - - Respiratory Rate 16 08/05/2014 9:19 AM CDT Oxygen Saturation - - Inhaled Oxygen Concentration - - Weight 95 kg (209 lb 7 oz) 08/05/2014 9:19 AM CDT Height 160 cm (5' 2.99) 08/05/2014 9:14 AM CDT Body Mass Index 37.11 08/05/2014 9:14 AM CDT documented in this encounter Medications at Time of Discharge Medication Sig Dispensed Refills Start Date End Date aspirin [address] tablet Take 1 tablet by mouth 0 03/14/2014 daily. documented as of this encounter Progress Notes Brandin Kruger M.D. - 08/05/2014 9:13 AM CDT [id number] She presents for recheck. She has not had her surgery as that is happening in 9 days. She is going to have a left shoulder rotator cuff same-day surgery up in [place]. We have done the preop for that already some time ago. We are trying to taper her medicines and I think we can discontinue the Exelon patch. I think today the Depakote is very important for her because of her obsessive-compulsive and probable bipolar disorder. Whenever I see Frances she seems manic. She talks without stopping and I might get rid of Exelon then try to increase the Depakote a little bit. In any event, she has got gait problems and I think this is because the years of alcoholism have given her an ataxic gait. In any event, they would like to do physical therapy for that. wanted to know if she is an alcoholic which I find a somewhat troubling statement. She clearly is alcoholic and can never go back to drinking. He makes a comment when I 1st saw her that I said she was a heavy drinker and was not certain if she was alcohol-dependent, but that was on the first visit and subsequent visits have shown me that she is an alcoholic and everyone needs to be on the same page about that and continue to treat her as an alcoholic who will relapse if she is allowed to drink I made that point in detail today. MEDICATIONS Per [facility] EMR. ALLERGIES Per [facility] EMR. SYSTEMS REVIEW Review of systems in all areas except as mentioned above is negative. PREVENTIVE SERVICES: Per [facility] EMR. Handwashing done prior to patient contact. PAST MEDICAL/SURGICAL HISTORY Per [facility] EMR. VITAL SIGNS Per [facility] EMR. PHYSICAL EXAMINATION She walked with an ataxic broad-based cerebellar-type gait and she has got some flaring of degenerative arthritis in the left knee. IMPRESSION/REPORT/PLAN 1. Cognitive dysfunction is there but I do not think Exelon is helping. We will discontinue it. 2. She will remain on her Depakote. 3. She will get her surgery of the shoulder done. 4. A prescription for physical therapy for ambulation and gait were given. 5. She is alcoholic and that is the way she should be referred to is the way she was diagnosed at [place] and I am complete concurrence with that. Time component 25 minutes, the majority counseling. Brandin Kruger M.D./cipriano Electronically Signed By: BRANDIN KRUGER MD On: 08/05/2014 12:41 PM Source: [facility] MHSDOLBEYNONRADSYS Document Id: [id number] documented in this encounter Miscellaneous Notes Telephone Encounter - Conversion, Historical Provider Ser - 08/20/2014 10:07 AM CDT *Phone Message Document Contains Addenda Addendum by IRVIN SALINAS LPN on 20 August 2014 10:34:21 CDT patient called Addendum by BRANDIN KRUGER MD on 20 August 2014 10:29:30 CDT From: BRANDIN KRUGER MD To: GRZEGORZ Kruger Nurse; Sent: 08/20/2014 10:29:30 CDT Subject: RE: *Phone Message yes Addendum by IRVIN SALINAS LPN on 20 August 2014 10:14:38 CDT From: IRVIN SALINAS LPN ( Brandin Kruger Nurse) To: BRANDIN KRUGER MD; Sent: 08/20/2014 10:14:38 CDT Subject: FW: *Phone Message From: KONRAD HAJI ([facility] Interlibrary Loan Specialist) To: GRZEGORZ Kruger Nurse; Sent: 08/20/2014 10:07:05 CDT Subject: *Phone Message Caller is: ( x ) Patient ( ) Mother ( ) Father ( ) Spouse ( ) Daughter ( ) Son ( ) Pharmacy ( ) Other: Physician: Patient MRN #: Reason for Call: S: Patient would like to know if she can use a suppository? B: Patient is diabetic and has a hemmroid from being constipated A: R: Please call her back and let her know at [phone] Message: Advice/Action: Source used: ( ) Verbalizes [...] back cell phone number ( ) Source: [facility] POWERCHART Document Id: [id number] Miscellaneous - Brandin Kruger M.D. - 08/05/2014 9:54 AM CDT Ambulatory Patient Summary [address] [id number] Visit Information Name: FRANCES HAGER [facility] Number: [id number] Current Date: 08/05/2014 09:54:23 Physicians Attending Provider: BRANDIN KRUGER MD Primary [...] the Following Medications: Medication list as of 08-05-14 09:54 Attention: If you have any medications at [...] Electronically Signed By: BRANDIN KRUGER MD Signed On:05-AUG-2014 09:52:41 Your Allergies & Intolerances Substance Reaction Symptoms [...] local Clinic if further appointment detail needed. Obsessive Compulsive Disorder (Ocd) Obsessive Compulsive Disorder is sometimes called OCD. It may cause any of the following symptoms: ?? Feeling the need to repeat certain actions over and over, such as hand washing, repeating words or counting items ?? Rechecking actions many times. (For instance, checking many times to make sure the stove is turned off or that the door was locked.) ?? Unable to take your attention off of disturbing thoughts that repeat over and over OCD usually does not go away on its own. It can prevent you from doing well at work and in relationships. Medicine and psychotherapy may help a great deal. Many people get better and are able to returnto their usual activities. Home Care: ?? If you have been given medicine, be sure to take it as directed. ?? Seek support from friends or family by talking about your feelings and thoughts. Follow Up with your doctor or therapist as advised by our staff. For more information, contact the National [place] [employer] Mental Illness at 438-243-4920 or visit www.daniel.org. Get Prompt Medical Attention if any of the following occur: ?? Worsening depression or anxiety ?? Feeling out of control ?? Thoughts of harming yourself or another ?? Being unable to care for your self ?? [id number] [facility], [address] [place] [address], [place] [address]. All rights reserved. This information is not intended as a substitute for professional medical care. Always follow your healthcare professional's instructions. Your Goals/Additional instructions: Source: [facility] POWERCHART Document Id: [id number] Miscellaneous - Brandin Kruger M.D. - 08/05/2014 9:54 AM CDT Ambulatory Discharge Medication List [address] [id number] Visit Information Name: FRANCES HAGER [facility] Number: [id number] Visit Date: 08/05/2014 09:54:20 Attending Provider: BRANDIN KRUGER MD Primary Care [...] the Following Medications: Medication list as of 08-05-14 09:54 Attention: If you have any medications at [...] Electronically Signed By: BRANDIN KRUGER MD Signed On:05-AUG-2014 09:52:41 Additional Information: Source: [facility] POWERCHART Document Id: [id number] Miscellaneous - Irvin Salinas LLoriPLoriN. - 08/05/2014 9:19 AM CDT Adult Strip Cutter Intake/History Adult Strip Cutter Intake/History Entered On: 08/05/2014 9:21 CDT Performed On: 08/05/2014 9:19 CDT by IRVIN SALINAS LPN Intake Chief Complaint : recheck Temperature Core : 36.4 DegC(Converted to: 97.5 DegF) (LOW) Peripheral Pulse Rate : 60 /min Respiratory Rate : 16 /min Heart Rhythm : Regular Systolic Blood Pressure : 130 mmHg Diastolic Blood Pressure : 70 mmHg NIBP Mean : 90 mmHg BP Location : Left upper extremity Blood Pressure Cuff Size : Large Actual Weight : 95 kg(Converted to: 209 lb 7 oz) Weight Source : Standing scale Dosing Weight Clinic : 95 kg SALINASDARIEN CHAMPIONPIERO HIGH [facility] - 08/05/2014 9:19 CDT General Info Information Given By : Patient Languages : Slovak Is Patient Female and 13-50 no hysterectomy : No SALINASIRVIN FRANCOIS LENNOX [facility] - 08/05/2014 9:19 CDT Subjective Pain Symptoms : Taty SALINASIRVIN FRANCOIS LENNOX [facility] - 08/05/2014 9:19 CDT Dependent Habits Tobacco Use/Currently Using : No Exposure to Tobacco Smoke : Other: former smoker Smoking Status : Never smoker Alcohol Use : Taty SWEENEYDARIEN FRANCOISPIERO HIGH [facility] - 08/05/2014 9:19 CDT Caffeine Use Grid Caffeine Use : Current Type : Coffee IRVIN SALINAS LENNOX [facility] - 08/05/2014 9:19 CDT Recreational Drug Use Grid Drug Use : None SALINAS, IRVINPIERO HIGH [facility] - 08/05/2014 9:19 CDT Source: [employer] Document Id: [id number] CDT!33 documented in this encounter Plan of Treatment Upcoming Encounters Date Type Specialty Care Team Description 09/27/2022 Office Visit Dermatology Marianela Braden M.D. [address] [place], [place] [phone] (Wo rk) documented as of this encounter Visit Diagnoses Not on filedocumented in this encounter Additional Health Concerns Assessment Noted Time PHQ-9 Depression Total Score: 3 05/05/2014 7:55 AM CDT documented as of this encounter
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
--- OUTSIDE RECORDS SUMMARY | 2022-08-14 22:59 | XMS_ITS | Encounter Summary ---
:1945 Author Organization [facility] Address [address] [place] [address] Care Team Providers Name Role Phone Unavailable Primary Care Provider Unavailable Encounter Details Date Type Department Care Team Description 11/27/2014 Hospital Encounter HX NO MAPPING Fabricio Kruger M.D. [address] [place] [address] 021 (Wo rk) Social History Tobacco Use Types Packs/Day Years Used Date Smoking Tobacco: Never Assessed Sex Assigned at Date Recorded Not on file documented as of this encounter Medications at Time of Discharge Medication Sig Dispensed Refills Start Date End Date aspirin [address] tablet Take 1 tablet by mouth 0 03/14/2014 daily. documented as of this encounter Miscellaneous Notes Telephone Encounter - Conversion, Historical Provider Ser - 12/16/2014 10:39 AM CST *Phone Message Document Contains Addenda Addendum by IRVIN SMITH LPN on 16 December 2014 11:40:07 FILM AND VIDEO EDITOR patient returned call metformin sent to Pharmacy on 12/15/14 Addendum by IRVIN SMITH LPN on 16 December 2014 11:12:01 FILM AND VIDEO EDITOR message left for patient to return call From: MONICA ACKERMAN To: GRZEGORZ Kruger Nurse; Sent: 12/16/2014 10:39:51 FILM AND VIDEO EDITOR Subject: *Phone Message Caller is: ( x ) Patient ( ) Mother ( ) Father ( ) Spouse ( ) Daughter ( ) Son ( ) Pharmacy ( ) Other: Physician: Patient Reason for Call: Message: S: Patient called to leave message with doctor B: Patient has questions regarding new medication she has A: R: Call patient at [phone] Advice/Action: Source used: ( ) Verbalizes understanding [...] back cell phone number ( ) Source: [employer] Document Id: [id number] Miscellaneous - Conversion, Historical Provider Ser - 11/27/2014 11:59 PM FILM AND VIDEO EDITOR Coding Summary-Paper Based CODING DATE: 12/09/2014 FINAL [facility] STATUS: * Discharged to Home or Self Care PAYOR: Medicare ADMIT DX: REASON FOR VISIT DX: FINAL DX: PRINCIPAL: 250.00 Diabetes Mellitus without Mention of Complication, Type II or Unspecified Type, Not Stated as Uncontrolled SECONDARY: 272.4 Other and Unspecified Hyperlipidemia 401.9 Unspecified Essential Hypertension 300.3 Obsessive-Compulsive Disorders V58.69 Long-Term (Current) Use of Other Medications PROCEDURES DOCTOR NAME DATE NOTE: The code number assigned matches the documented diagnosis and / or procedure in the patient's chart. However, the narrative phrase printed from the coding software may appear abbreviated, or result in slightly different terminology. Coded By: BRUNA LAUREANO Date Saved: 12/09/2014 10:51 pm Source: [employer] Document Id: [id number] documented in this encounter Plan of Treatment Upcoming Encounters Date Type Specialty Care Team Description 09/27/2022 Office Visit Dermatology Marianela Braden M.D. [address] [place], [place] [phone] (Wo rk) documented as of this encounter Visit Diagnoses Not on filedocumented in this encounter Additional Health Concerns Assessment Noted Time PHQ-9 Depression Total Score: 3 05/05/2014 7:55 AM CDT documented as of this encounter
--- OUTSIDE RECORDS SUMMARY | 2022-08-14 22:59 | XMS_ITS | Encounter Summary ---
:1945 Author Organization [facility] Address [address] [place] [address] Care Team Providers Name Role Phone Unavailable Primary Care Provider Unavailable Encounter Details Date Type Department Care Team Description 11/25/2013 Hospital Encounter HX [facility] INTERNMED Jairo Kruger M.D. [address] [place] [address] 021 (Wo rk) Social History Tobacco Use Types Packs/Day Years Used Date Smoking Tobacco: Never Assessed Sex Assigned at Date Recorded Not on file documented as of this encounter Last Filed Vital Signs Vital Sign Reading Time Taken Comments Blood Pressure 118/62 11/25/2013 9:03 AM FREEZER PERSON Pulse 78 11/25/2013 9:03 AM FREEZER PERSON Temperature - - Respiratory Rate 20 11/25/2013 9:03 AM FREEZER PERSON Oxygen Saturation - - Inhaled Oxygen Concentration - - Weight 94 kg (207 lb 3.7 oz) 11/25/2013 9:03 AM FREEZER PERSON Height 160 cm (5' 2.99) 11/25/2013 9:03 AM FREEZER PERSON Body Mass Index 36.72 11/25/2013 9:03 AM FREEZER PERSON documented in this encounter Progress Notes Brandin Kruger M.D. - 11/25/2013 8:52 AM CST [id number] She comes in to go through testing. She hits all 5 goals for diabetic care. She has an A1c of 6.0. She has an LDL cholesterol of 83. She has no tobacco. She has aspirin. She meets the blood pressure goals. These tests were done in November and so her A1c is not due again until mid April. Diabetic wellness was discussed today. He//she should follow the care plan as outlined below: - Business Sales Consultant examining fundi once a year. - Hemoglobin A1c every 3 to 4 months. - Complete physical exam once a year. - Close attention to skin care, particularly regarding feet: a. Inspect the feet each day. b. Cut the nails flat across and not at angles. c. Keep the skin moist with lanolin or other moisturizing cream. d. Always pre-test the bath water for temperature of water before stepping in. - Appropriate attention to serum lipids and blood pressure. - Microalbuminuria screen once a year. Diabetic goals were also discussed with him/her: - Hemoglobin A1c less than 7. - LDL cholesterol less than 100. - Blood pressure on average less than or equal to 130/80. - tobacco. - Take aspirin or other anticoagulant. Health maintenance was also discussed and it turns out that she had a mammogram at [facility] in July of 2013, which was normal, and so I will enter that to fill that health maintenance deficiency. She is current on her colonoscopy and did have a polyp. She is due in 5 years. MEDICATIONS Per [facility] EMR. ALLERGIES Per [facility] EMR. SYSTEMS REVIEW Review of systems in all areas except as mentioned above is negative. PREVENTIVE SERVICES: Per [facility] EMR. Handwashing done prior to patient contact. PAST MEDICAL/SURGICAL HISTORY Per [facility] EMR. VITAL SIGNS Per [facility] EMR. PHYSICAL EXAMINATION HEENT: Eyes-Conjunctiva and lids normal. Pupils equal, round, reactive to light and accommodation. Extraocular movements normal. Sclera nonicteric. Ophthalmologic exam grossly normal. ENT-Tympanic membranes look okay bilaterally. Nares without erythema or congestion. Mouth without erythema or exudate,no leuko or erythroplakia. NECK: Supple, no adenopathy or thyromegaly. Carotid upstrokes plus 2 bilaterally, no bruits. CHEST: Lung bebee clear to auscultation and percussion with normal [...] or fourthsound, no significant murmur, no gallop. NEURO: She is alert, oriented and grossly nonfocal. IMPRESSION/REPORT/PLAN She is doing exceptionally well, blood pressure and diabetic goals all being met. I would recommend she return in 6 months. At that point an A1c will be due. She is not due for her lipids and other tests for 1 year. All health maintenance things are current with the entering of her mammogram for July of 2013. Time component: 25 minutes, time in counseling greater than 17 minutes. Brandin Kruger M.D./sadiq Electronically Signed By: BRANDIN KRUGER MD On: 11/26/2013 09:02 AM Source: [facility] MHSDOLBEYNONRADSYS Document Id: [id number] ZER PERSON documented in this encounter Miscellaneous Notes Miscellaneous - Brandin Kruger M.D. - 11/25/2013 9:43 AM CST Ambulatory Patient Summary [address] [address] Visit Information Name: FRANCES HAGER [facility] Number: [id number] Current Date: 11/25/2013 09:43:26 Physicians Attending Provider: BRANDIN KRUGER MD Primary [...] once a day This is a CHANGE atenolol (atenolol 50 mg oral tablet) 1 Tablet(s), Oral, once a day atorvastatin (Lipitor 40 mg oral tablet) 1 Tablet(s), Oral, once a day (at bedtime) clotrimazole-betamethasone topical (Lotrisone 1%-0.05% topical cream) 1 manny, Topical, two times a day cyanocobalamin (cyanocobalamin 1000 mcg oral tablet) See Instructions 1 tab(s) PO Daily 3 x a week hydrochlorothiazide (hydrochlorothiazide 25 mg oral tablet) 1 Tablet(s), Oral, once a day lisinopril (Zestril 40 mg oral tablet) 1 Tablet(s), Oral, once a day metformin (metformin 850 mg oral tablet) 1 Tablet(s), Oral, two times a day with meals multivitamin (multivitamin) Oral, once a day multivitamin with minerals (Ocuvite Lutein oral capsule) 1 cap, Oral, once a day Stop Taking the Following Medications: [facility] Prescription (omega 3 fatty acids-fish) Medication list as of 11-25-13 09:43 Attention: If you have any medications at home that are not on this list, DO NOT take them until youcontact your provider for clarification. Give a copy of your medication list to your primary care provider. Update your medication list any time medications or doses are changed and carry your medication list at all times in case of emergency. Your Allergies & Intolerances Substance Reaction Symptoms Category Comments No Known Allergies Your Problem List Problem Status Onset Comments Combined hyperlipidemia Active 04/11/2013 HTN [Hypertension] Active 04/11/2013 DM II (or NOS), controlled Active 04/11/2013 Your Upcoming Appointments Date Time Location Reason Provider No Appointments found Attention: Contact your local Clinic if further appointment detail needed. Your Goals/Additional instructions: Source: [facility] POWERCHART Document Id: [id number] ZER PERSON Miscellaneous - Brandin Kruger M.D. - 11/25/2013 9:43 AM CST Ambulatory Depart Summary [address] [address] Visit Information Name: FRANCES HAGER [facility] Number: [id number] Visit Date: 11/25/2013 09:43:23 Attending Provider: BRANDIN KRUGER MD Primary Care [...] once a day This is a CHANGE atenolol (atenolol 50 mg oral tablet) 1 Tablet(s), Oral, once a day atorvastatin (Lipitor 40 mg oral tablet) 1 Tablet(s), Oral, once a day (at bedtime) clotrimazole-betamethasone topical (Lotrisone 1%-0.05% topical cream) 1 manny, Topical, two times a day cyanocobalamin (cyanocobalamin 1000 mcg oral tablet) See Instructions 1 tab(s) PO Daily 3 x a week hydrochlorothiazide (hydrochlorothiazide 25 mg oral tablet) 1 Tablet(s), Oral, once a day lisinopril (Zestril 40 mg oral tablet) 1 Tablet(s), Oral, once a day metformin (metformin 850 mg oral tablet) 1 Tablet(s), Oral, two times a day with meals multivitamin (multivitamin) Oral, once a day multivitamin with minerals (Ocuvite Lutein oral capsule) 1 cap, Oral, once a day Stop Taking the Following Medications: [facility] Prescription (omega 3 fatty acids-fish) Medication list as of 11-25-13 09:43 Attention: If you have any medications at home that are not on this list, DO NOT take them until youcontact your provider for clarification. Give a copy of your medication list to your primary care provider. Update your medication list any time medications or doses are changed and carry your medication list at all times in case of emergency. Additional Information: Source: [facility] POWERCHART Document Id: [id number] ZER PERSON Miscellaneous - Irvin Salinas, LLoriP.N. - 11/25/2013 9:03 AM CST Adult Subsorter Intake/History Adult Subsorter Intake/History Entered On: 11/25/2013 9:07 FREEZER PERSON Performed On: 11/25/2013 9:03 FREEZER PERSON by IRVIN SALINAS LPN Intake Chief Complaint : recheck Temperature Core : 36.8 DegC(Converted to: 98.2 DegF) Peripheral Pulse Rate : 78 /min Respiratory Rate : 20 /min Heart Rhythm : Regular Systolic Blood Pressure : 118 mmHg Diastolic Blood Pressure : 62 mmHg NIBP Mean : 81 mmHg BP Location : Left upper extremity Blood Pressure Cuff Size : Large Height : 160 cm(Converted to: 5 ft 3 inch(es), 62.99 inch(es)) Actual Weight : 94 kg(Converted to: 207 lb 4 oz) Weight Source : Standing scale Dosing Weight Clinic : 94 kg Clinic BSA : 2.04 Body Mass Index : 36.72 kg/m2 IRVIN SALINAS LPN - 11/25/2013 9:03 FREEZER PERSON General Info Information Given By : Patient Languages : [place] IRVIN SALINAS LPN - 11/25/2013 9:03 FREEZER PERSON Subjective Pain Symptoms : No IRVIN SALINAS LPN - 11/25/2013 9:03 FREEZER PERSON Dependent Habits Tobacco Use/Currently Using : No Exposure to Tobacco Smoke : Other: former smoker Smoking Status : Former smoker Alcohol Use : Yes IRVIN SALINAS LPN - 11/25/2013 9:03 FREEZER PERSON Caffeine Use Grid Caffeine Use : Current Type : Coffee IRVIN SALINAS LPN - 11/25/2013 9:03 FREEZER PERSON Recreational Drug Use Grid Drug Use : None IRVIN SALINAS LPN - 11/25/2013 9:03 FREEZER PERSON Source: [facility] POWERCHART Document Id: [id number] FREEZER PERSON!35 ZER PERSON documented in this encounter Plan of Treatment Upcoming Encounters Date Type Specialty Care Team Description 09/27/2022 Office Visit Dermatology Marianela Braden M.D. [address] [place] [phone] (Wo rk) documented as of this encounter Visit Diagnoses Not on filedocumented in this encounter
--- OUTSIDE RECORDS SUMMARY | 2022-08-14 22:59 | XMS_ITS | Encounter Summary ---
:1945 Author Organization [facility] Address [address] [place] [address] Care Team Providers Name Role Phone Unavailable Primary Care Provider Unavailable Encounter Details Date Type Department Care Team Description 04/30/2013 Hospital Encounter HX [facility] INTERNMED Jairo Kruger M.D. [address] [place] [address] 021 (Wo rk) Social History Tobacco Use Types Packs/Day Years Used Date Smoking Tobacco: Never Assessed Sex Assigned at Date Recorded Not on file documented as of this encounter Last Filed Vital Signs Vital Sign Reading Time Taken Comments Blood Pressure 126/70 04/30/2013 8:30 AM CDT Pulse 64 04/30/2013 8:30 AM CDT Temperature - - Respiratory Rate 16 04/30/2013 8:30 AM CDT Oxygen Saturation - - Inhaled Oxygen Concentration - - Weight 93 kg (205 lb 0.4 oz) 04/30/2013 8:30 AM CDT Height 160 cm (5' 2.99) 04/30/2013 8:30 AM CDT Body Mass Index 36.33 04/30/2013 8:30 AM CDT documented in this encounter H&P Notes Brandin Kruger M.D. - 04/30/2013 8:24 AM CDT [id number] CHIEF COMPLAINT/REASON FOR VISIT Preventive medicine visit with acute problems. HISTORY OF PRESENT ILLNESS Acute problems 1. Adult onset diabetes mellitus. The patient is not sure if her meter is working accurately. We dida fingerstick in the exam room though and it was 121 which seems appropriate. The meter worked quickly and responsively and I could see no issue with it. In any event, we will check a hemoglobin A1c today and see if she meets goals. Diabetic wellness was discussed with her today and she should follow the care plan as outlined below: - Self Defense Instructor examining fundi once a year. - Hemoglobin A1c every three to four months. - Complete physical exam once a [...] year. Diabetic goals were also discussed with her: - Hemoglobin A1c less than 7. - LDL cholesterol less than 100. - Blood pressure on average less than or equal to 130/80. - No tobacco. - Take aspirin or other anticoagulant. 2. Malaise and fatigue. The patient is experiencing some malaise and fatigue. She is not very concerned about this. She feels it is probably constitutional or related to aging, but she wants to be surethere are no metabolic abnormalities. 3. Hypertension. Blood pressure control looks good on her current medications. We will check electrolytes. 4. Elevation of liver tests. The patient has had elevation of her liver tests. AST and ALT were slightly elevated but she was drinking very heavily at the time. She has cut back to just one drink a day. We will see what the liver tests have done in response to that. Hepatic function panel will be donetoday. 5. Dyslipidemia. She has gone to a generic cholesterol pill. That should be effective. We will checkwhat her lipids are in a fasting state. 6. Obsessive compulsive behaviors. She is undergoing counseling by a psychologist and she likes her psychologist a lot. She is talking about her obsessive compulsive behaviors. She otherwise has limited her alcohol and had a negative CT scan of head, B12 and folate. She also had a negative TSH. CURRENT MEDICATIONS Post-visit Medication Reconciliation Per [facility] in [place] electronic medical record. ALLERGIES Per [facility] electronic medical record. SYSTEMS REVIEW Review of systems in all areas is asked about and is negative, except as mentioned above. PAST MEDICAL/SURGICAL HISTORY 1. Heavy alcohol use in the past. 2. Moderate obesity. 3. Hypertension. 4. Dyslipidemia. 5. Diabetes mellitus type 2. 6. Probable obsessive compulsive behavior traits. PREVENTIVE SERVICES Per [facility] electronic medical record. Handwashing done prior to patient contact. SOCIAL HISTORY The patient is . She does not use tobacco and has cut back to just one drink a day. FAMILY HISTORY Father of a heart attack but he was older. Mother had Alzheimer's but she was very old. There is no breast, colorectal, cervical, ovarian or uterine cancer in a first degree relative. VITAL SIGNS Per [facility] electronic medical record. PHYSICAL EXAM SKIN: Inspection of the skin and subcutaneous tissue has nothing inconsistent with age. EYES: Conjunctiva and lids are normal. Pupils are equal, round, reactive to light and accommodation.Extraocular movements normal. Sclera nonicteric. Fundi sharp discs bilaterally without diabetic or hypertensive changes. ENT: Tympanic membranes okay on both sides. Hearing grossly normal to scratch test. Nasal mucosa without erythema or congestion. No sinus tenderness. Mouth without erythema or exudate, no leuko or erythroplakia. [place] teeth top and bottom. Dental hygiene is good. NECK: Neck is supple. Carotid upstrokes +2 bilaterally. No carotid bruits. LYMPH NODES: No adenopathy. THYROID: No thyromegaly. BREASTS: Palpation of the breasts is without mass or discharge. There is no axillary or supraclavicular adenopathy. There is no nipple inversion or dimpling of the skin. PERIPHERAL VESSELS: There are good femoral, popliteal and dorsalis pedis pulses bilaterally. There are no bruits over the femoral arteries. HEART: Central venous pressure is normal at 7 to 8 centimeters of water or less; there is a normal systolic collapse of the jugular venous pulse; there is not a positive hepatojugular reflex. Heart tones are in sinus rhythm; S1 and S2 normal, physiologic splitting of the second heart tone, no third orfourth sound, no significant murmur, no gallop. LUNGS: Lung beebe clear to auscultation and percussion with normal respiratory rate and effort. ABDOMEN: Abdomen is obese, soft and nondistended. No organomegaly. No focal mass or tenderness. The abdominal aorta is not enlarged to palpation. There are no bruits over the abdomen. There are no hernias. There is no costovertebral angle tenderness. RECTUM: Rectal exam deferred. GENITALIA: exam deferred. SPINE: No cervical, thoracic or lumbar tenderness to deep palpation. EXTREMITIES: Warm, dry and noncyanotic without clubbing or peripheral edema. GAIT: Gait is normal. NEURO: Cranial nerves II-XII are grossly intact. Reflexes in the upper and lower extremities are bilaterally symmetric. Toes are down-going. There is no dysmetria. DIABETIC FOOT EXAM: There is no evidence of ulceration or skin breakdown. Examination with both light touch filament and vibratory tuning fork reveals no impairment of sensation in the feet. IMPRESSION/REPORT/PLAN ACTIVE PROBLEMS 1. Heavy alcohol use. This has been moderated. We will check liver tests today. She will continue incounseling. 2. Obsessive compulsive disorder. She likes her psychologist a lot. Continue counseling. 3. Dyslipidemia, treated. Check lipid panel and liver function tests. 4. Adult onset diabetes mellitus. Check diabetic laboratories today to see if she meets goals. 5. Hypertension, well controlled with current medications. Check electrolytes. 6. Malaise and fatigue, probably constitutional. Nothing clearly found on examination. Check laboratories to rule out metabolic problems. INACTIVE PROBLEMS Please see past medical history. HEALTH MAINTENANCE CONCERNS Instructed to have a complete physical examination once a year, see an flight physician once a year, and see the dentist at least once or twice a year. Instructed to wear seatbelts when in a motor vehicle. Questioned about symptoms of domestic abuse and there are none. She will have mammograms performed once a year and she will do breast self-examinations once a month. She was instructed in the principles of breast self-examination and demonstrated competency in the office. The patient was recommended to drink at least six glasses of plain water each day, have five servings of fruits and vegetables each day, and get good aerobic exercise. I also recommended she take a generic multivitamin without ir on once a day. She had a colonoscopy on 04/25/2013 and is current there. Her mammogram is due in 07/2013. Bone DEXA scan is current. Immunizations are current. Laboratories today will bring her completely up to date. STUDIES DONE TODAY Basic metabolic panel, hemoglobin, urinalysis with microscopy, urine microalbumin, lipid panel, hepatic function panel, and hemoglobin A1c. We will call her with the results. Brandin Kruger M.D./ankita Electronically Signed By: BRANDIN KRUGER MD On: 05/01/2013 04:37 PM Source: [facility] MHSDOLBEYNONRADSYS Document Id: [id number] documented in this encounter Miscellaneous Notes Miscellaneous - Angelica Snyder, R.N. - 01/06/2014 12:28 PM CST Med Management Document Contains Addenda Addendum by ANGELICA SNYDER on 06 January 2014 15:33:57 [employer] proposal done. Addendum by BRANDIN KRUGER MD on 06 January 2014 15:05:42 [employer] From: BRANDIN KRUGER MD To: ANGELICA SNYDER; Sent: 01/06/2014 15:05:42 [employer] Subject: FW: Med Management Addendum by IRVIN SALINAS LPN on 06 January 2014 14:52:08 [employer] From: IRVIN SALINAS LPN To: BRANDIN KRUGER MD; Sent: 01/06/2014 14:52:08 [employer] Subject: RE: Med Management taking HCTZ 25mg bid and Atenolol 50mg bid Addendum by BRANDIN KRUGER MD on 06 January 2014 14:44:16 [employer] From: BRANDIN KRUGER MD To: IRVIN SALINAS LPN; Sent: 01/06/2014 14:44:16 [employer] Subject: FW: Med Management Call her and finfd out what atenolol she is taking Addendum by ANGELICA SNYDER on 06 January 2014 14:19:47 [employer] From: ANGELICA SNYDER To: BRANDIN KRUGER MD; Sent: 01/06/2014 14:19:47 [employer] Subject: FW: Med Management What about the atenolol and HCTZ? --as per the note below. Addendum by BRANDIN KRUGER MD on 06 January 2014 12:54:38 [employer] From: BRANDIN KRUGER MD Sent: 01/06/2014 12:54:36 [employer] Subject: RE:Med Management Approved Order:atorvastatin (Lipitor 40 mg oral tablet) 1 tab(s) PO Bedtime Qty: 90 tab(s) Refills: 1 Substitutions Allowed Route To [id number] Signed by BRANDIN KRUGER MD 01/06/2014 12:54:31 Approved Order:metFORMIN (metFORMIN 850 mg oral tablet) 1 tab(s) PO 2xDay meal Qty: 180 tab(s) Refills: 1 Substitutions Allowed Route To [id number] Signed by BRANDIN KRUGER MD 01/06/2014 12:54:29 Approved Order:lisinopril (Zestril 40 mg oral tablet) 1 tab(s) PO Daily Qty: 90 tab(s) Refills: 1 Substitutions Allowed Route To [id number] Signed by BRANDIN KRUGER MD 01/06/2014 12:54:28 From: ANGELICA SNYDER To: BRANDIN KRUGER MD; Sent: 01/06/2014 12:28:49 [employer] Subject: Med Management On hold pending signature Order:atorvastatin (Lipitor 40 mg oral tablet) 1 tab(s) PO Bedtime Qty: 90 tab(s) Refills: 1 Substitutions Allowed Route To [id number] On hold pending signature Order:metFORMIN (metFORMIN 850 mg oral tablet) 1 tab(s) PO 2xDay meal Qty: 180 tab(s) Refills: 1 Substitutions Allowed Route To [id number] On hold pending signature Order:lisinopril (Zestril 40 mg oral tablet) 1 tab(s) PO Daily Qty: 90 tab(s) Refills: 1 Substitutions Allowed Route To [id number] Documented Discontinue:lisinopril (Zestril 40 mg oral tablet) Signed by ANGELICA SNYDER 01/06/2014 12:26:24 Documented Discontinue:metFORMIN (metformin 850 mg oral tablet) Signed by ANGELICA SNYDER 01/06/2014 12:27:08 Documented Discontinue:atorvastatin (Lipitor 40 mg oral tablet) Signed by ANGELICA SNYDER 01/06/2014 12:27:31 Caller is: ( ) Patient ( ) Mother ( ) Father ( ) Spouse ( ) Daughter ( ) Son ( ) Pharmacy ( ) Other: Provider: Pharmacy: Name of Medications Needing Refill: Last Refill Date: Additional Information:[facility] is asking for atenolol 50 mg tab - one tab twice daily (its listed in doc by history as one tab daily and HCTZ 25 mg tab - one tab po twice daily, also in doc by history as one tab daily. I will propose the others. Last / Future Appointment: Disposition: ( ) Send to Pharmacy ( ) Call to Pharmacy ( ) Patient will supervisor opening and picking Script ( ) Mail Rx to Patient Source: [facility] mydeco Document Id: [id number] Electronically signed by Conversion, [facility] Broaching Machine Set Up Operator [id number] at 04/05/2017 7:28 AM CDT Miscellaneous - Brandin Kruger M.D. - 04/30/2013 12:26 PM CDT Results Notification Document Contains Addenda Addendum by IRVIN SALINAS LPN on 02 May 2013 09:38:08 CDT called with results From: BRANDIN KRUGER MD To: IRVIN SALINAS LPN; Sent: 04/30/2013 12:26:10 CDT ! Show up: 04/30/2013 17:26:[address] [facility] Subject: Results Notification Actions: Notify patient of results Reminder Comments: good Results: Date Result Name Ind Value Ref Range 04/30/2013 09:01 Hgb A1c (H) 6.1 % A1C (4.0 - 6.0) Source: [facility] mydeco Document Id: [id number] Electronically signed by Conversion, [facility] Broaching Machine Set Up Operator [id number] at 04/05/2017 7:28 AM CDT Brandin Malik M.D. - 04/30/2013 10:23 AM CDT Results Notification Document Contains Addenda Addendum by IRVIN SALINAS LPN on 02 May 2013 09:38:39 CDT called with results From: BRANDIN KRUGER MD To: IRVIN SALINAS LPN; Sent: 04/30/2013 10:23:56 CDT ! Show up: 04/30/2013 15:23:56 [facility] Subject: Results Notification Actions: Notify patient of results Reminder Comments: elevated but no comparison and on maximum dose of lisinopri Results: Date Result Name Ind Value Ref Range 04/30/2013 09:11 U Albumin 72 mg/dL 04/30/2013 09:11 U Creatinine 139 mg/dL 04/30/2013 09:11 U Alb/Creatinine Ratio (H) 52 mg/gm (0 - 25) Source: [facility] POWERCHART Document Id: [id number] Electronically signed by Conversion, [facility] Broaching Machine Set Up Operator [id number] at 04/05/2017 7:28 AM CDT Brandin Malik M.D. - 04/30/2013 10:05 AM CDT Results Notification Document Contains Addenda Addendum by IRVIN SALINAS LPN on 02 May 2013 09:38:53 CDT called with results Addendum by IRVIN SALINAS LPN on 02 May 2013 09:38:25 CDT called with results From: BRANDIN KRUGER MD To: IRVIN SALINAS LPN; MERRILL QUEZADA; Sent: 04/30/2013 10:05:23 CDT ! Show up: 04/30/2013 15:05:23 [facility] Subject: Results Notification Actions: Notify patient of results Reminder Comments: better Results: Date Result Name Ind Value Ref Range 04/30/2013 09:01 Sodium Lvl 137 mmol/L (135 - 145) 04/30/2013 09:01 Potassium Lvl 4.8 mmol/L (3.5 - 4.8) 04/30/2013 09:01 Chloride (L) 94 mmol/L (100 - 108) 04/30/2013 09:01 CO2 (H) 31 mmol/L (22 - 29) 04/30/2013 09:01 Alkaline Phosphatase 101 unit/L (50 - 130) 04/30/2013 09:01 Glucose Fasting (H) 107 mg/dL (70 - 99) 04/30/2013 09:01 Creatinine 0.9 mg/dL (0.7 - 1.2) 04/30/2013 09:01 EGFR (MDRD) >60 mL/min 04/30/2013 09:01 EGFR (MDRD) >60 mL/min 04/30/2013 09:01 BUN 15 mg/dL (6 - 20) 04/30/2013 09:01 Calcium Lvl 10.2 mg/dL (8.5 - 10.5) 04/30/2013 09:01 Protein Total 6.6 mg/dL (6.3 - 8.2) 04/30/2013 09:01 Albumin Lvl 4.2 gm/dL (3.5 - 5.0) 04/30/2013 09:01 AST 37 unit/L (8 - 43) 04/30/2013 09:01 ALT (H) 56 unit/L (9 - 52) 04/30/2013 09:01 Bili Total 0.5 mg/dL (0.1 - 1.0) 04/30/2013 09:01 Bili Direct 0.1 mg/dL (0.0 - 0.3) 04/30/2013 09:01 Cholesterol 136 mg/dL (0 - 200) 04/30/2013 09:01 Trig 126 mg/dL (0 - 150) 04/30/2013 09:01 HDL 58.0 mg/dL (40.0 - 60.0) 04/30/2013 09:01 LDL Calculated 53 mg/dL (0 - 100) Source: [facility] POWERCHART Document Id: [id number] Electronically signed by Conversion, [facility] Broaching Machine Set Up Operator [id number] at 04/05/2017 7:28 AM CDT Miscellaneous - Brandin Kruger M.D. - 04/30/2013 9:36 AM CDT Results Notification Document Contains Addenda Addendum by IRVIN SALINAS LPN on 02 May 2013 09:39:10 CDT called with results From: BRANDIN KRUGER MD To: IRVIN SALINAS LPN; Sent: 04/30/2013 09:36:56 CDT ! Show up: 04/30/2013 14:36:[address] [facility] Subject: Results Notification Actions: Notify patient of results Reminder Comments: ok Results: Date Result Name Ind Value Ref Range 04/30/2013 09:11 UA Color Yellow 04/30/2013 09:11 UA Spec Grav 1.020 (1.020 - ) 04/30/2013 09:11 UA pH 7.0 (5.0 - 8.0) 04/30/2013 09:11 UA Protein (*) 30 (Negative - ) 04/30/2013 09:11 UA Glucose Negative (Negative - ) 04/30/2013 09:11 UA Ketones Negative (Negative - ) 04/30/2013 09:11 UA Bili Negative (Negative - ) 04/30/2013 09:11 UA Urobilinogen 0.2 (0.2 - 1.0) 04/30/2013 09:11 UA Blood Negative (Negative - ) 04/30/2013 09:11 UA Nitrite Negative (Negative - ) 04/30/2013 09:11 UA Leuk Est Negative (Negative - ) 04/30/2013 09:11 UA WBC 0-5 (Negative - ) 04/30/2013 09:11 UA RBC Negative (Negative - ) 04/30/2013 09:11 UA Bacteria (*) Few (Negative - ) 04/30/2013 09:11 UA Appear Clear Source: [facility] POWERCHART Document Id: [id number] Electronically signed by Conversion, [facility] Broaching Machine Set Up Operator [id number] at 04/05/2017 7:28 AM CDT Miscellaneous - Brandin Kruger M.D. - 04/30/2013 9:16 AM CDT Results Notification Document Contains Addenda Addendum by IRVIN SALINAS LPN on 02 May 2013 09:37:52 CDT called with results From: BRANDIN KRUGER MD To: IRVIN SALINAS JEFFREY; Sent: 04/30/2013 09:16:26 CDT ! Show up: 04/30/2013 14:16:[address] [facility] Subject: Results Notification Actions: Notify patient of results Reminder Comments: ok Results: Date Result Name Value Ref Range 04/30/2013 09:01 Hgb 14.1 g/dL (12.0 - 15.5) Source: [facility] POWERCHART Document Id: [id number] Electronically signed by Conversion, [facility] Broaching Machine Set Up Operator [id number] at 04/05/2017 7:28 AM CDT Miscellaneous - Brandin Kruger M.D. - 04/30/2013 8:51 AM CDT Ambulatory Depart Summary [address] [address] Visit Information Name: FRANCES HAGER [facility] Number: [id number] Visit Date: 04/30/2013 08:51:11 Attending Provider: BRANDIN KRUGER MD Primary Care [...] your medications. Medication/Strength Dose Route Frequency Indications/Special Instructions/Comments/Notes multivitamin (multivitamin) Oral once a day aspirin (aspirin 325 mg oral tablet) 325 mg Oral once a [place] [facility] [place] (omega 3 fatty acids-fish) 664/1200mg 1 [...] your provider for clarification. Additional Information: Source: [facility] POWERCHART Document Id: [id number] Miscellaneous - Brandin Kruger M.D. - 04/30/2013 8:51 AM CDT Ambulatory Patient Summary [address] [address] Visit Information Name: FRANCES HAGER [facility] Number: [id number] Current Date: 04/30/2013 08:51:12 Physicians Attending Provider: BRANDIN KRUGER MD Primary Care Provider: BRANDIN KRUGER MD Your Medications Here is a list of your medications. It is important to take your medications as directed. Use a pillbox or chart to help remind you to take your medications. Please let your doctor or nurse know if you have problems taking your medications. Medication/Strength Dose Route Frequency Indications/Special Instructions/Comments/Notes multivitamin (multivitamin) Oral once a day aspirin (aspirin 325 mg oral tablet) 325 mg Oral once a [place] [facility] [place] (omega 3 fatty acids-fish) 664/1200mg 1 [...] Upcoming Appointments Date Time Location Reason Provider 05/02/2013 13:45 [facility] Surgeon test results RobUlysses morgan MD Your Goals/Additional instructions: Source: [facility] POWERCHART Document Id: [id number] Miscellaneous - Irvin Salinas L.P.N. - 04/30/2013 8:30 AM CDT Adult Public Address Systems Mechanic Intake/History Adult Public Address Systems Mechanic Intake/History Entered On: 04/30/2013 8:32 CDT Performed On: 04/30/2013 8:30 CDT by IRVIN SALINAS LPN Intake Chief Complaint : complete exam Temperature Core : 37 DegC(Converted to: 98.6 DegF) Peripheral Pulse Rate : 64 /min Respiratory Rate : 16 /min Systolic Blood Pressure : 126 mmHg Diastolic Blood Pressure : 70 mmHg NIBP Mean : 89 mmHg BP Location : Left upper extremity Height : 160 cm(Converted to: 5 ft 3 inch(es), 62.99 inch(es)) Actual Weight : 93 kg(Converted to: 205 lb 0 oz) Weight Source : Standing scale Dosing Weight Clinic : 93 kg Clinic BSA : 2.03 Body Mass Index : 36.33 kg/m2 IRVIN SALINAS LPN - 04/30/2013 8:30 CDT General Info Information Given By : Patient Languages : Maltese IRVIN SALINAS LPN - 04/30/2013 8:30 CDT Subjective Pain Symptoms : No IRVIN SALINAS LPN - 04/30/2013 8:30 CDT Dependent Habits Tobacco Use/Currently Using : No Smoking Status : Former smoker Alcohol Use : Yes IRVIN SALINAS LPN - 04/30/2013 8:30 CDT Caffeine Use Grid Caffeine Use : Current Type : Coffee IRVIN SALINAS HEALTH CARE COACH - 04/30/2013 8:30 CDT Recreational Drug Use Grid Drug Use : None IRVIN SALINAS HEALTH CARE COACH - 04/30/2013 8:30 CDT Source: [facility] POWERCHART Document Id: [id number] CDT!32 documented in this encounter Plan of Treatment Upcoming Encounters Date Type Specialty Care Team Description 09/27/2022 Office Visit Dermatology Marianela Braden M.D. [address] [place] [address] [phone] (Wo rk) documented as of this encounter Procedures Procedure Name Priority Date/Time Associated Comments Diagnosis ALBUMIN, RANDOM, U Routine 04/30/2013 9:11 AM Res ults for this CDT procedure are i n the results section. URINALYSIS WITH Routine 04/30/2013 9:11 AM Result s for this MICROSCOPIC CDT procedure are i n the results section. LIPID PANEL, S Routine 04/30/2013 9:01 AM Results for this CDT procedure are i n the results section. HEPATIC FUNCTION Routine 04/30/2013 9:01 AM Resul ts for this PANEL, S CDT procedure are i n the results section. HEMOGLOBIN, B Routine 04/30/2013 9:01 AM Results for this CDT procedure are i n the results section. HEMOGLOBIN A1C, B Routine 04/30/2013 9:01 AM Resu lts for this CDT procedure are i n the results section. BASIC METABOLIC Routine 04/30/2013 9:01 AM Result s for this PANEL, S/P CDT procedure are i n the results section. documented in this encounter Results (ABNORMAL) Microalbumin, Random, Urine (04/30/2013 9:11 AM CDT) P athologist Signature HXU Albumin % 72 MGDL POWERCHART Creatinine, 139 MGDL POWERCHART Random, U Albumin/Creatin 52 (H) 0 - 25 POWERCHART ine Ratio MGGM Specimen (Source) Anatomical Collection Method Collection Time Re ceived Time Location / / Volume Laterality Urine 04/30/2013 9:11 AM CDT Brandin Kruger M.D. LAB URINE ORDERABLES Performing Organization Address City/[facility]/ZIP Code Phon e Number POWERCHART (ABNORMAL) Urinalysis, Complete, Includes Microscopic (04/30/2013 9:11 AM CDT) Patholo gist Method Time Signature Protein, Ur, Dip 30 (A) Negative POWERCHART Source Clean Void POWERCHART Urine HXUr Color Yellow POWERCHART Appearance Clear POWERCHART Glucose Negative Negative POWERCHART HXBILIRUBIN Negative Negative POWERCHART Ketones, QL(U) Negative Negative POWERCHART Specific 1.020 1.020 POWERCHART [place], POCT, U pH, POCT, Urine 7.0 5.0 - 8.0 POWERCHART HXBLOOD Negative Negative POWERCHART Urobilinogen 0.2 0.2 - 1.0 POWERCHART HXNITRITE Negative Negative POWERCHART Leukocyte Negative Negative POWERCHART Esterase HXUr WBC 0-5 Negative POWERCHART Red Blood Cell Negative Negative POWERCHART Clump, Urine HXUr Bacteria Few (A) Negative POWERCHART Specimen (Source) Anatomical Collection Method Collection Time Re ceived Time Location / / Volume Laterality Urine 04/30/2013 9:11 AM CDT Brandin Kruger M.D. LAB URINE ORDERABLES Performing Organization Address [facility]/ZIP Code Phon e Number POWERCHART Hemoglobin (04/30/2013 9:01 AM CDT) P athologist Signature Hemoglobin 14.1 12.0 - 15.5 POWERCHART GDL Specimen (Source) Anatomical Collection Method Collection Time Re ceived Time Location / / Volume Laterality Blood 04/30/2013 9:01 AM CDT Brandin Kruger M.D. LAB BLOOD ADD-ON Performing Organization Address City/[facility]/ZIP Code Phon e Number POWERCHART (ABNORMAL) Hemoglobin A1c (04/30/2013 9:01 AM CDT) P athologist Signature Hemoglobin A1c, 6.1 (H) 4.0 - 6.0 POWERCHART B A1C Specimen (Source) Anatomical Collection Method Collection Time Re ceived Time Location / / Volume Laterality Blood 04/30/2013 9:01 AM CDT Brandin Kruger M.D. LAB BLOOD ADD-ON Performing Organization Address City/State/ZIP Code Phon e Number POWERCHART (ABNORMAL) Hepatic Function Panel (04/30/2013 9:01 AM CDT) Patholo gist Method Time Signature Albumin, S 4.2 3.5 - 5.0 POWERCHART GMDL Alkaline 101 50 - 130 POWERCHART Phosphatase, S UNITL Aspartate 37 8 - 43 POWERCHART Aminotransferase UNITL (AST), S Alanine 56 (H) 9 - 52 POWERCHART Amniotransferase, LD UNITL Bilirubin, Total, S 0.5 0.1 - 1.0 POWERCHART MGDL Bilirubin, Direct, S 0.1 0.0 - 0.3 POWERCHAR T MGDL Total Protein, S 6.6 6.3 - 8.2 POWERCHART MGDL Specimen (Source) Anatomical Collection Method Collection Time Re ceived Time Location / / Volume Laterality Blood 04/30/2013 9:01 AM CDT Brandin Kruger M.D. LAB BLOOD ADD-ON Performing Organization Address City/[facility]/ZIP Code Phon e Number POWERCHART Lipid Panel (04/30/2013 9:01 AM CDT) Analysis Performed At Patho logist Time Signature Cholesterol, Total 136 0 - 200 POWERCHART MGDL HX HDL 58.0 40.0 - POWERCHART 60.0 MGDL Triglycerides 126 0 - 150 POWERCHART MGDL Calculated LDL 53 0 - 100 POWERCHART MGDL Specimen (Source) Anatomical Collection Method Collection Time Re ceived Time Location / / Volume Laterality Blood 04/30/2013 9:01 AM CDT Brandin Kruger M.D. LAB BLOOD ADD-ON Performing Organization Address City/State/ZIP Code Phon e Number POWERCHART (ABNORMAL) BMP (Basic Metabolic Panel) (04/30/2013 9:01 AM CDT) P athologist Signature BUN (Blood Urea 15 6 - 20 POWERCHART Nitrogen), S MGDL Creatinine 0.9 0.7 - 1.2 POWERCHART MGDL Potassium, S 4.8 3.5 - 4.8 POWERCHART MMOLL Sodium, S 137 135 - 145 POWERCHART MMOLL Chloride, S 94 (L) 100 - 108 POWERCHART MMOLL CO2 Total 31 (H) 22 - 29 POWERCHART MMOLL Calcium, Total, 10.2 8.5 - 10.5 POWERCHART S MGDL HXeGFR (MDRD) >60 MLMIN POWERCHART eGFR >60 MLMIN POWERCHART Black/ Glucose, 107 (H) 70 - 99 POWERCHART Fasting, S MGDL Specimen (Source) Anatomical Collection Method Collection Time Re ceived Time Location / / Volume Laterality Blood 04/30/2013 9:01 AM CDT Brandin Kruger M.D. LAB BLOOD ADD-ON Performing Organization Address City/State/ZIP Code Phon e Number POWERCHART documented in this encounter Visit Diagnoses Not on filedocumented in this encounter
--- OUTSIDE RECORDS SUMMARY | 2022-08-14 22:59 | XMS_ITS | Encounter Summary ---
:1945 Author Organization [facility] Address [address] [place] [address] Care Team Providers Name Role Phone Unavailable Primary Care Provider Unavailable Encounter Details Date Type Department Care Team Description 05/06/2013 Hospital Encounter HX [facility] FAMILYPRA Iona Garcia, FREDIS, C.N.P. [address] [place] [address] (Wo rk) Social History Tobacco Use Types Packs/Day Years Used Date Smoking Tobacco: Never Assessed Sex Assigned at Date Recorded Not on file documented as of this encounter Last Filed Vital Signs Vital Sign Reading Time Taken Comments Blood Pressure 108/60 05/06/2013 9:24 AM CDT Pulse 64 05/06/2013 9:24 AM CDT Temperature - - Respiratory Rate 16 05/06/2013 9:24 AM CDT Oxygen Saturation - - Inhaled Oxygen Concentration - - Weight 94.7 kg (208 lb 12.4 oz) 05/06/2013 9:24 AM CDT Height - - Body Mass Index 36.99 04/30/2013 8:30 AM CDT documented in this encounter Progress Notes Argelia Garcia, FREDIS, C.N.P. - 05/06/2013 9:20 AM CDT [id number] CHIEF COMPLAINT/REASON FOR VISIT Diabetes education. HISTORY OF PRESENT ILLNESS Frances is scheduled for diabetes education. She states it has been several years since she has seen a perioperative educator. She had A1c checked on 04/30/2013. It was excellent at 6.1. She is currently on metformin 850 mg, 1 two times a day. She states that she has made up her mind that she wants to lose weight. She is going to keep carbs at 2 per meal with 1 carb choice per snack. She has started at [employer]. She also plays tennis twice a week. She brought her Accu-Chek Anastasiia meter in with her today. We did review that. She needs a new prescription for strips and she would also like a bottle of control solution. She likes to test the meter each time she gets a new bottle of strips. She is testing once daily. She has been testing just fasting. I have encouraged her to test a couple of times a week two hours postprandial supper. CURRENT MEDICATIONS See depart summary from today. ALLERGIES Penicillin. SYSTEMS REVIEW Positive for that mentioned in the history of present illness and noted in the past medical history in the EMR. All other systems were reviewed and were negative. PREVENTIVE SERVICES She states she had dilated eye exam done in [place] at the [facility] by Dr. Aguila six months ago. Will request a copy of that record. She is checking on immunizations. She states Dr. Kruger did do a foot exam when she saw him. VITAL SIGNS See EMR. PHYSICAL EXAMINATION GENERAL: Well developed, well nourished female in no acute distress. IMPRESSION/REPORT/PLAN Diabetes type 2 controlled. Diabetes education was done today. Please see perioperative educator intake form in the EMR. all of her questions were answered. Strips and control solution were ordered for her meter. She is going to start testing a few times a week two hours postprandial supper instead of fasting in the morning. She will continue to bring her meter with her to each visit and she was encouraged to keep motivated for weight loss and she will follow up with Dr. Kruger as directed. Total time spent with patient 30 minutes, all of it counseling. Argelia Garcia CNP/charlotte Electronically Signed By: ARGELIA GARCIA CNP On: 05/08/2013 09:04 AM Source: [facility] MHSDOLBEYNONRADSYS Document Id: [id number] documented in this encounter Nursing Notes Argelia Garcia APRN, C.N.P. - 05/06/2013 2:01 PM CDT Deployment Manager Intake (Adult) Deployment Manager Intake (Adult) Entered On: 05/06/2013 14:03 CDT Performed On: 05/06/2013 14:01 CDT by ARGELIA GARCIA [facility] SPECIALIST Assessment Program Type : Non-Program Diabetes Referring Provider : BRANDIN KRUGER MD Special needs : None Method Used for DSME : Individual Last Educator Visit Date : 05/06/2013 CDT Diabetes Type : Type 2 19 years and older Ethnicity : White/ Diabetes Onset : 2001 Current Treatment : Oral agents Medication Compliance : Takes meds as prescribed Diabetes Medications Reviewed : Yes Medication Categories : Biguanide Glucose Meter : Accu-Chek Anastasiia Monitoring Frequency : Once Daily Rotational Glucose Results : Fasting, Postprandial Supper Time Spent With Patient : 30 Minutes ARGELIA GARCIA CNP - 05/06/2013 14:01 CDT Education Diabetes Education Grid Topics : Nutritional Management - Carb Counting, Physical activity, Medications/Effectiveness - OralAgents, Monitoring - Blood Glucose, Using Results - Blood Glucose, Problem Solving/Goal Setting - Treatment/Management Goals Individuals Taught : Patient Barriers to Learning : None evident Teaching Method : Explanation Teaching Evaluation : Verbalizes understanding ARGELIA GARCIA CNP - 05/06/2013 14:01 CDT Comprehensive Program Goals Diabetes Education Goals Grid Diabetes Education Goal #1 row Diabetes Education Goal #2 row Diabetes Education Goal #3 row Date Goal Set : 05/06/2013 CDT 05/06/2013 CDT Goal : Weight loss regular physical activity annual flu shot Related Content Area : Healthy eating Exercise/activity Reducing risks ARGELIA GARCIA CNP - 05/06/2013 14:01 CDT ARGELIA GARCIA CNP - 05/06/2013 14:01 CDT SARITA GARCIA CNP - 05/06/2013 14:01 CDT Source: [facility] TransactisCHART Document Id: [id number] CDT!39 documented in this encounter Miscellaneous Notes Miscellaneous - Argelia Garcia APRN, C.N.P. - 05/06/2013 2:05 PM CDT Ambulatory Patient Summary [address] [address] Visit Information Name: FRANCES HAGER [facility] Number: [id number] Current Date: 05/06/2013 14:05:30 Physicians Attending Provider: ARGELIA GARCIA CNP Primary Care Provider: BRANDIN KRUGER MD Your [...] tablet) 325 mg Oral once a day [facility] Prescription (omega 3 fatty acids-fish) 664/1200mg 1 [...] No Appointments found Your Goals/Additional instructions: Source: [facility] POWERCHART Document Id: [id number] Miscellaneous - Argelia Garcia APRN, C.N.P. - 05/06/2013 2:05 PM CDT Ambulatory Depart Summary [address] [address] Visit Information Name: FRANCES HAGER [facility] Number: [id number] Visit Date: 05/06/2013 14:05:29 Attending Provider: ARGELIA GARCIA [facility] Primary Care Provider: BRANDIN KRUGER MD FRANCES [...] tablet) 325 mg Oral once a day [facility] Prescription (omega 3 fatty acids-fish) 664/1200mg 1 [...] your provider for clarification. Additional Information: Source: [facility] POWERCHART Document Id: [id number] Mispriyankaaneous - Catina Vuong L.PLoriN. - 05/06/2013 9:24 AM CDT Adult Clinical Research Spec Intake/History Adult Clinical Research Spec Intake/History Entered On: 05/06/2013 9:26 CDT Performed On: 05/06/2013 9:24 CDT by CATINA VUONG Intake Chief Complaint : diabetes Temperature Core : 36.4 DegC(Converted to: 97.5 DegF) (LOW) Peripheral Pulse Rate : 64 /min Respiratory Rate : 16 /min Systolic Blood Pressure : 108 mmHg Diastolic Blood Pressure : 60 mmHg NIBP Mean : 76 mmHg Actual Weight : 94.7 kg(Converted to: 208 lb 12 oz) Dosing Weight Clinic : 94.7 kg CATINA UVONG - 05/06/2013 9:24 CDT General Info Information Given By : Patient Languages : Iranian CATINA VUONG - 05/06/2013 9:24 CDT Subjective Pain Symptoms : No CATINA VUONG - 05/06/2013 9:24 CDT Dependent Habits Tobacco Use/Currently Using : No Exposure to Tobacco Smoke : Other: former smoker Smoking Status : Former smoker CATINA VUONG - 05/06/2013 9:24 CDT Caffeine Use Grid Caffeine Use : Current Type : Coffee CATINA VUONG - 05/06/2013 9:24 CDT Recreational Drug Use Grid Drug Use : None CATINA VUONG - 05/06/2013 9:24 CDT Source: [employer] Document Id: [id number] CDT!27 Miscellaneous - Argelia Garcia APRN, C.NClarence - 01/15/2013 2:21 PM CDT Quality Measures Quality Measures Entered On: 05/06/2013 14:22 CDT Performed On: 01/15/2013 14:21 CDT by ARGELIA GARCIA CNP Diabetes Date of Last Eye Exam : 01/15/2013 CDT ARGELIA GARCIA CNP - 05/06/2013 14:21 CDT Source: [employer] Document Id: [id number] CDT!3 documented in this encounter Plan of Treatment Upcoming Encounters Date Type Specialty Care Team Description 09/27/2022 Office Visit Dermatology Marianela Braden M.D. [address] [place], [place] [phone] (Wo rk) documented as of this encounter Visit Diagnoses Not on filedocumented in this encounter
--- OUTSIDE RECORDS SUMMARY | 2022-08-14 22:59 | XMS_ITS | Encounter Summary ---
:1945 Author Organization [facility] Address [address] [place] [address] Care Team Providers Name Role Phone Unavailable Primary Care Provider Unavailable Encounter Details Date Type Department Care Team Description 05/02/2013 Hospital Encounter HX [facility] SURGEON Saravanan Alegre M.D. Social History Tobacco Use Types Packs/Day Years Used Date Smoking Tobacco: Never Assessed Sex Assigned at Date Recorded Not on file documented as of this encounter Last Filed Vital Signs Vital Sign Reading Time Taken Comments Blood Pressure 108/56 05/02/2013 1:57 PM CDT Pulse - - Temperature - - Respiratory Rate - - Oxygen Saturation - - Inhaled Oxygen Concentration - - Weight - - Height - - Body Mass Index - - documented in this encounter Progress Notes Ulysses Alegre M.D. - 05/02/2013 1:38 PM CDT [id number] CHIEF COMPLAINT/REASON FOR VISIT Followup after colonoscopy. HISTORY OF PRESENT ILLNESS The patient comes in today for followup after her colonoscopy which was performed on 04/25/2013 at [facility]. She had two polyps removed. One was a diminutive hyperplastic polyp in the rectosigmoid and the other was a diminutive polyp in the cecum which was a tubular adenoma. She also had severe sigmoid diverticulosis. As far as future risk and having colonoscopy, I told her she would now be an intermediate risk and would need to be re-scoped in five years because of the tubular adenoma she had. The colonoscopy went well for her. IMPRESSION/REPORT/PLAN We will enter her into our follow-up system as an intermediate risk patient with regard to future colonoscopy and re-scope her in five years. Time component: Approximately 15 minutes. Ulysses Alegre M.D./ankita Electronically Signed By: ULYSSES ALEGRE MD On: 05/13/2013 08:48 AM Source: [facility] MHSDOLBEYNONRADSYS Document Id: [id number] documented in this encounter Miscellaneous Notes Miscellaneous - Hilario Lowry, R.N. - 05/03/2013 7:59 AM CDT Reminder Msg From: HILARIO LOWRY ( Surgery Nurse) To: Surgery Nurse; Sent: 05/03/2013 07:59:54 CDT Show up: 03/06/2018 07:59:00 CDT Subject: Reminder Msg Due Date/Time: 04/25/2018 07:59:00 CDT Please Remember to: Pt. needs to schedule colonoscopy at 5 year interval will be due for colonoscopyafter April 252017 PATIENT: ( ) Call Patient ( ) Ask Patient to ( ) ( ) Call Relative ( ) Schedule Patient ( ) ( ) Call for Instrument Assembly Supervisor ( ) Follow up on Results ( ) Other: PROVIDER: ( ) Call Physician ( ) Call Pharmacist ( ) Call Lab ( ) Other: Special Instructions: Comments: Source: [facility] POWERCHART Document Id: [id number] Electronically signed by Antonette [facility] Chemical Tank Worker [id number] at 04/05/2017 7:28 AM CDT Miscellaneous - Ulysses Alegre M.D. - 05/02/2013 3:04 PM CDT Ambulatory [place] [address] Visit Information Name: FRANCES HAGER [facility] Number: [id number] Current Date: 05/02/2013 15:04:24 Physicians Attending Provider: ULYSSES ALEGRE MD Primary Care Provider: BRANDIN BOSTON MD Your Medications Here is a list [...] tablet) 325 mg Oral once a day [facility] Prescription (omega 3 fatty acids-fish) 664/1200mg 1 [...] No Appointments found Your Goals/Additional instructions: Source: [facility] POWERCHART Document Id: [id number] Miscellaneous - Ulysses Alegre M.D. - 05/02/2013 3:04 PM CDT [place] [address] Visit Information Name: FRANCES HAGER [facility] Number: [id number] Visit Date: 05/02/2013 15:04:23 Attending Provider: ULYSSES ALEGRE MD Primary Care Provider: BRANDIN BOSTON MD FRANCES HAGER has been given the [...] tablet) 325 mg Oral once a day Misc Prescription (omega 3 fatty acids-fish) 664/1200mg 1 [...] your provider for clarification. Additional Information: Source: [facility] POWERCHART Document Id: [id number] Miscellaneous - Dary Wilkins, L.P.N. - 05/02/2013 1:57 PM CDT Adult Poultry Offal Worker Intake/History Adult Poultry Offal Worker Intake/History Entered On: 05/02/2013 14:01 CDT Performed On: 05/02/2013 13:57 CDT by DARY WILKINS Intake Chief Complaint : Test Results- colonoscopy 04/25/13 Temperature Core : 37.2 DegC(Converted to: 99.0 DegF) Systolic Blood Pressure : 108 mmHg Diastolic Blood Pressure : 56 mmHg NIBP Mean : 73 mmHg BP Location : Right upper extremity Blood Pressure Cuff Size : Large Oxygen Therapy : Aerosol face mask DARY WILKINS - 05/02/2013 13:57 CDT General Info Information Given By : Patient Preferred Communication Mode : Verbal Languages : Japanese WILKINSDARY - 05/02/2013 13:57 CDT Subjective Pain Symptoms : No WILKINSDARY - 05/02/2013 13:57 CDT Dependent Habits Tobacco Use/Currently Using : No Tobacco Use/Last 12 months : No Exposure to Tobacco Smoke : Other: former smoker Smoking Status : Former smoker DARY WILKINS - 05/02/2013 13:57 CDT Caffeine Use Grid Caffeine Use : Current Type : Coffee DARY WILKINS - 05/02/2013 13:57 CDT Recreational Drug Use Grid Drug Use : None DARY WILKINS - 05/02/2013 13:57 CDT [facility] Document Id: [id number] CDT!28 documented in this encounter Plan of Treatment Upcoming Encounters Date Type Specialty Care Team Description 09/27/2022 Office Visit Dermatology Marianela Braden M.D. [address] [place], [place] [phone] (Wo rk) documented as of this encounter Visit Diagnoses Not on filedocumented in this encounter
--- OUTSIDE RECORDS SUMMARY | 2022-08-14 22:59 | XMS_ITS | Encounter Summary ---
:1945 Author Organization [facility] Address [address] [place] [address] Care Team Providers Name Role Phone Unavailable Primary Care Provider Unavailable Encounter Details Date Type Department Care Team Description 07/03/2014 Hospital Encounter HX NO MAPPING Social History Tobacco Use Types Packs/Day Years [...] Visit Dermatology Marianela Braden M.D. [address] [place], [place] [phone] (Wo rk) documented as of this encounter Visit Diagnoses Not on filedocumented in this encounter Additional Health Concerns Assessment Noted Time PHQ-9 Depression Total Score: 3 05/05/2014 7:55 AM CDT documented as of this encounter
--- OUTSIDE RECORDS SUMMARY | 2022-08-14 22:59 | XMS_ITS | Encounter Summary ---
:1945 Author Organization [facility] Address [address] [place] [address] Care Team Providers Name Role Phone Unavailable Primary Care Provider Unavailable Encounter Details Date Type Department Care Team Description 03/27/2014 Hospital Encounter HX [facility] INTERNMED Jairo Kruger M.D. [address] [place] [address] [phone] (Wo rk) Social History Tobacco Use Types Packs/Day Years Used Date Smoking Tobacco: Never Assessed Sex Assigned at Date Recorded Not on file documented as of this encounter Last Filed Vital Signs Vital Sign Reading Time Taken Comments Blood Pressure 128/68 03/27/2014 9:15 AM CDT Pulse 60 03/27/2014 9:15 AM CDT Temperature - - Respiratory Rate 16 03/27/2014 9:15 AM CDT Oxygen Saturation - - Inhaled Oxygen Concentration - - Weight 92 kg (202 lb 13.2 oz) 03/27/2014 9:15 AM CDT Height 160 cm (5' 2.99) 03/27/2014 9:15 AM CDT Body Mass Index 35.94 03/27/2014 9:15 AM CDT documented in this encounter Medications at Time of Discharge Medication Sig Dispensed Refills Start Date End Date aspirin [address] tablet Take 1 tablet by mouth 0 03/14/2014 daily. documented as of this encounter Progress Notes Brandin Kruger M.D. - 03/27/2014 9:10 AM CDT [id number] Patient presents today. She has maintained sobriety and is doing better. She knew all her medications. We talked about today why her sodium is low and, and we will check but the sodium and magnesium today. I am surprised to find that she is drinking nearly 200 ounces of dilute fluids a day, these are largely Crystal Light and things of that nature. She gets bloating and has to get up all night and urinate. This is a huge amount of fluid which is probably causing a delusional hyponatremia. I made a strong recommendation that she dropped to six 8 ounce glasses of Crystal Light or water or dilute (48 ouncesbetween 6 a.m. and 6 p.m. and severely limit fluid restriction after 6 p.m. I would really never seen the patient, take 200 ounces of Crystal Light a day and I am not sure with the artificial sweeteneris doing to her colon. She does say there is lots of bloating and I am not surprised. She otherwise looks and feels reasonably well. We talked some about entering chemical dependency treatment. They do not know exactly when that is going to be but they think probably April 07. MEDICATIONS Per [facility] EMR. ALLERGIES Per [facility] EMR. SYSTEMS REVIEW Review of systems in all areas except as mentioned above is negative. PREVENTIVE SERVICES: Per [facility] EMR. Handwashing done prior to patient contact. PAST MEDICAL/SURGICAL HISTORY Per [facility] EMR. VITAL SIGNS Per [facility] EMR. PHYSICAL EXAMINATION EENT: Conjunctiva and lids normal. PERRLA. EOMs normal. Sclera nonicteric. Ophthalmologic exam grossly normal. TMs look okay bilaterally. Nares without erythema or congestion. Mouth without erythema orexudate, no leuko or erythroplakia. Hearing grossly normal to scratch test bilaterally. NECK: Supple, no adenopathy or thyromegaly. Carotid [...] fourthsound, no significant murmur, no gallop. IMPRESSION/REPORT/PLAN She has got way too much fluid intake and is causing her to urinate all night and she does not get good sleep and she gets bloating from the NutraSweet and has a host of problems attendant to drinking almost 200 ounces of Crystal Light, a day. She should back to no more than 6 glasses of such materiala day and take it is strictly between 6 a.m. and 6 p.m. I suspect her sodium and other symptoms willimprove markedly. Patient today had a BMP and a magnesium level. Will call her with results. Time component: 25 minutes, majority of it in counseling. Brandin Kruger M.D./cipriano Electronically Signed By: BRANDIN KRUGER MD On: 03/27/2014 10:57 AM Source: [facility] [id number] Document Id: [id number] documented in this encounter Miscellaneous Notes Miscellaneous - Brandin Kruger M.D. - 03/28/2014 9:07 AM CDT Results Notification Document Contains Addenda Addendum by IRVIN SALINAS LPN on 01 Apr 2014 10:13:15 CDT called with results From: BRANDIN KRUGER MD Sent: 03/28/2014 09:07:20 CDT ! Show up: 03/28/2014 09:07:20 CDT Subject: Results Notification Actions: Notify patient of results Reminder Comments: ok Results: Date Result Name Value Ref Range 03/27/2014 09:49 Magnesium Lvl-Scott 1.7 mg/dL (1.7 - 2.3 - ) Source: [facility] POWERCHART Document Id: [id number] Electronically signed by Antonette [facility] [employer] Admissions Counselor [id number] at 04/03/2017 8:26 PM CDT Miscellaneous - Brandin Kruger M.D. - 03/27/2014 11:08 AM CDT Results Notification Document Contains Addenda Addendum by IRVIN SALINAS LPN on 27 Mar 2014 15:09:38 CDT called with results From: BRANDIN KRUGER MD Sent: 03/27/2014 11:08:53 CDT ! Show up: 03/27/2014 11:08:53 CDT Subject: Results Notification Actions: Notify patient of results Reminder Comments: ok Results: Date Result Name Ind Value Ref Range 03/27/2014 09:49 Sodium Lvl 136 mmol/L (135 - 145) 03/27/2014 09:49 Potassium Lvl (H) 5.2 mmol/L (3.5 - 4.8) 03/27/2014 09:49 Chloride (L) 97 mmol/L (100 - 108) 03/27/2014 09:49 CO2 28 mmol/L (22 - 30) 03/27/2014 09:49 Glucose Lvl 138 03/27/2014 09:49 Creatinine 0.8 mg/dL (0.7 - 1.2) 03/27/2014 09:49 EGFR (MDRD) >60 mL/min 03/27/2014 09:49 EGFR (MDRD) >60 mL/min 03/27/2014 09:49 BUN 18 mg/dL (6 - 20) 03/27/2014 09:49 Calcium Lvl 9.8 mg/dL (8.5 - 10.5) Source: [facility] POWERCHART Document Id: [id number] Electronically signed by Antonette, [facility] [employer] Admissions Counselor [id number] at 04/03/2017 8:26 PM CDT Miscellaneous - Brandni rKuger M.D. - 03/27/2014 9:41 AM CDT Ambulatory Patient Summary [address] [id number] Visit Information Name: FRANCES HAGER [facility] Number: [id number] Current Date: 03/27/2014 09:41:15 Physicians Attending Provider: BRANDIN KRUGER MD Primary Care Provider: BRANDIN KRUGER MD FRANCSE HAGER has been given the following list [...] tab(s) PO Daily 3 x a week lisinopril (Zestril 40 mg oral tablet) 1 Tablet(s), Oral, once a day magnesium oxide (magnesium oxide) 400 mg, Oral, once a day metFORMIN (metFORMIN 500 mg oral tablet) 1 Tablet(s), Oral, two times a day with meals multivitamin (multivitamin) Oral, once a day multivitamin with minerals (Ocuvite Lutein oral capsule) 1 cap, Oral, once a day pantoprazole (pantoprazole 40 mg oral delayed release tablet) 1 Tablet(s), Oral, once a day PARoxetine (Paxil 20 mg oral tablet) 1 Tablet(s), Oral, once a day Stop Taking the Following Medications: Medication list as of 03-27-14 09:41 Attention: If you have any medications at [...] Electronically Signed By: BRANDIN KRUGER MD Signed On:27-MAR-2014 09:40:21 Your Allergies & Intolerances Substance Reaction Symptoms Category Comments No Known Allergies Your Problem List Problem Status Onset Comments Combined hyperlipidemia Active 04/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 [id number] Your High Blood Pressure Risk Factors Risk [...] often feel anxious, nervous, and stressed? ?? [id number] Ana Gilliam, [address] [place] [address], [place] [id number]. All rights reserved. This information is not intended as a substitute for professional medical care. Always follow your healthcare professional's instructions. Your Goals/Additional instructions: This document has images extracted. Please consider using [facility] for all your patient education needs. Source: [facility] POWERCHART Document Id: [id number] Miscellaneous - Brandin Kruger M.D. - 03/27/2014 9:41 AM CDT Ambulatory Discharge Medication List [address] [id number] Visit Information Name: FRANCES HAGER [facility] Number: [id number] Visit Date: 03/27/2014 09:41:13 Attending Provider: BRANDIN KRUGER MD Primary Care [...] tab(s) PO Daily 3 x a week lisinopril (Zestril 40 mg oral tablet) 1 Tablet(s), Oral, once a day magnesium oxide (magnesium oxide) 400 mg, Oral, once a day metFORMIN (metFORMIN 500 mg oral tablet) 1 Tablet(s), Oral, two times a day with meals multivitamin (multivitamin) Oral, once a day multivitamin with minerals (Ocuvite Lutein oral capsule) 1 cap, Oral, once a day pantoprazole (pantoprazole 40 mg oral delayed release tablet) 1 Tablet(s), Oral, once a day PARoxetine (Paxil 20 mg oral tablet) 1 Tablet(s), Oral, once a day Stop Taking the Following Medications: Medication list as of 03-27-14 09:41 Attention: If you have any medications at [...] Electronically Signed By: BRANDIN KRUGER MD Signed On:27-MAR-2014 09:40:21 Additional Information: Source: [facility] POWERCHART Document Id: [id number] Miscellaneous - Irvin Salinas L.P.N. - 03/27/2014 9:15 AM CDT Adult Computer Software Engineer Intake/History Adult Computer Software Engineer Intake/History Entered On: 03/27/2014 9:18 CDT Performed On: 03/27/2014 9:15 CDT by IRVIN SALINAS LPN Intake Chief Complaint : recheck meds Temperature Core : 37 DegC(Converted to: 98.6 DegF) Peripheral Pulse Rate : 60 /min Respiratory Rate : 16 /min Heart Rhythm : Regular Systolic Blood Pressure : 128 mmHg Diastolic Blood Pressure : 68 mmHg NIBP Mean : 88 mmHg BP Location : Left upper extremity Blood Pressure Cuff Size : Large Height : 160 cm(Converted to: 5 ft 3 inch(es), 63 inch(es)) Actual Weight : 92 kg(Converted to: 202 lb 13 oz) Weight Source : Standing scale Dosing Weight Clinic : 92 kg Clinic BSA : 2.02 Body Mass Index : 35.94 kg/m2 IRVIN SALINAS LPN - 03/27/2014 9:15 CDT General Info Information Given By : Patient Languages : Thai IRVIN SALINAS LPN - 03/27/2014 9:15 CDT Subjective Pain Symptoms : No IRVIN SALINAS LPN - 03/27/2014 9:15 CDT Dependent Habits Tobacco Use/Currently Using : No Exposure to Tobacco Smoke : Other: former smoker Smoking Status : Never smoker Alcohol Use : No IRVIN SALINAS LPN - 03/27/2014 9:15 CDT Caffeine Use Grid Caffeine Use : Current Type : Coffee IRVIN SALINAS LEARNING OFFICER - 03/27/2014 9:15 CDT Recreational Drug Use Grid Drug Use : None IRVIN SALINAS LEARNING OFFICER - 03/27/2014 9:15 CDT Source: [facility] POWERCHART Document Id: [id number] CDT!35 documented in this encounter Plan of Treatment Upcoming Encounters Date Type Specialty Care Team Description 09/27/2022 Office Visit Dermatology Marianela Braden M.D. [address] [place] [address] [phone] (Wo rk) documented as of this encounter Procedures Procedure Name Priority Date/Time Associated Diagnosis Comme nts MAGNESIUM, S Routine 03/27/2014 9:49 AM Results f or this CDT procedure are i n the results section. BASIC METABOLIC Routine 03/27/2014 9:49 AM Result s for this PANEL, S/P CDT procedure are i n the results section. documented in this encounter Results Magnesium (03/27/2014 9:49 AM CDT) athologist Signature Magnesium, S 1.7 1.7 - 2.3 POWERCHART MGDL Comment: Test Performed by: [address] [address] Small Business Director: Gustavo vargas III, M.D. Specimen (Source) Anatomical Collection Method Collection Time Re ceived Time Location / / Volume Laterality Blood 03/27/2014 9:49 AM CDT Brandin Kruger M.D. LAB BLOOD ADD-ON Performing Organization Address City/State/ZIP Code Phon e Number POWERCHART (ABNORMAL) BMP (Basic Metabolic Panel) (03/27/2014 9:49 AM CDT) athologist Signature BUN (Blood Urea 18 6 - 20 POWERCHART Nitrogen), S MGDL Creatinine 0.8 0.7 - 1.2 POWERCHART MGDL Glucose 138 POWERCHART Potassium, S 5.2 (H) 3.5 - 4.8 POWERCHART MMOLL Sodium, S 136 135 - 145 POWERCHART MMOLL Chloride, S 97 (L) 100 - 108 POWERCHART MMOLL CO2 Total 28 22 - 30 POWERCHART MMOLL Calcium, Total, 9.8 8.5 - 10.5 POWERCHART S MGDL HXeGFR (MDRD) >60 MLMIN POWERCHART eGFR >60 MLMIN POWERCHART Black/ Specimen (Source) Anatomical Collection Method Collection Time Re ceived Time Location / / Volume Laterality Blood 03/27/2014 9:49 AM CDT Brandin Kruger M.D. LAB BLOOD ADD-ON Performing Organization Address City/State/ZIP Code Phon e Number POWERCHART documented in this encounter Visit Diagnoses Not on filedocumented in this encounter Additional Health Concerns Assessment Noted Time PHQ-9 Depression Total Score: 12 03/13/2014 9:01 AM CD T documented as of this encounter
--- OUTSIDE RECORDS SUMMARY | 2022-08-14 22:59 | XMS_ITS | Encounter Summary ---
:1945 Author Organization [facility] Address [address] [place] [address] Care Team Providers Name Role Phone Unavailable Primary Care Provider Unavailable Encounter Details Date Type Department Care Team Description 10/08/2014 Hospital Encounter HX [facility] FBHB INTERNMED Jairo Kruger M.D. [address] [place] [address] 021 (Wo rk) Social History Tobacco Use Types Packs/Day Years Used Date Smoking Tobacco: Never Assessed Sex Assigned at Date Recorded Not on file documented as of this encounter Last Filed Vital Signs Vital Sign Reading Time Taken Comments Blood Pressure 128/70 10/08/2014 9:28 AM PARTS COUNTER CLERK Pulse 60 10/08/2014 9:28 AM PARTS COUNTER CLERK Temperature - - Respiratory Rate - - Oxygen Saturation - - Inhaled Oxygen Concentration - - Weight 91 kg (200 lb 9.9 oz) 10/08/2014 9:28 AM PARTS COUNTER CLERK Height 160 cm (5' 2.99) 10/08/2014 9:28 AM PARTS COUNTER CLERK Body Mass Index 35.55 10/08/2014 9:28 AM PARTS COUNTER CLERK documented in this encounter Medications at Time of Discharge Medication Sig Dispensed Refills Start Date End Date aspirin [address] tablet Take 1 tablet by mouth 0 03/14/2014 daily. documented as of this encounter Progress Notes Brandin Kruger M.D. - 10/08/2014 9:24 AM CST [id number] Document Contains Addenda REVISION HISTORY October 08, 2014 at 2:03 p.m. - Addendum added per Dr. Brandin Kruger ADDENDUM She also is complaining of dark urine that was a little bit dysuric to pass. She had a catheter whenshe had her shoulder surgery. Will do a UA with reflex to culture and if there is cystitis I will call in an antibiotic. She presents for a recheck. She is rechecking on a number of issues. First of all, we have tapered her psychoactive medicines to simply divalproex and thinks she is doing very well. I would keep that because there is some evidence it works for manic/obsessive behavior which is 1 of her diagnoses. The other medicines which were basically dementia medicines we have gotten rid of and she is doing no worse but actually better off them. We talked about her alcoholism and she is still completely dry and there is no alcohol in the house so I congratulated her on that. She has been having some problems with her toenails and the toenails on both feet on the 5th digit are cut way too short. She should let does grow out and not cut them because she is going to encourageingrowing and other issues to cut them that short. They are cut way to the back 1/3 of the nail bed.I see no evidence of infection in her feet. asked if any other medicines can be trimmed and we cannot really say that without doing labs. At this point she is basically on medicines for hypertension, dyslipidemia and diabetes and GERD and this will all be needing laboratories to determine if she can make any changes. She is not due for any testing until about 6 weeks and so I will set her up for a complete physical in 6 weeks and all the labs can be done at that point and then we could make changes in the medicines if possible. Finally there is a new pneumococcal medicine Prevnar which is out for injection and I will give thatto her today. MEDICATIONS Per [facility] EMR. ALLERGIES Per [facility] EMR. SYSTEMS REVIEW Review of systems in all areas except as mentioned above is negative. PREVENTIVE SERVICES: Per [facility] EMR. Handwashing done prior to patient contact. PAST MEDICAL/SURGICAL HISTORY Per [facility] EMR. VITAL SIGNS Per [facility] EMR. PHYSICAL EXAMINATION EENT: Conjunctivae and lids normal. [...] percussion with normal respiratory rate and effort. EXTREMITIES: Toenails are too short on the 5th digit bilaterally. IMPRESSION/REPORT/PLAN 1. Let toenails grow out longer before cutting them. 2. Questions about whether medicine can be reduced. I think at the moment the answer is no but will make further decisions after her physical and laboratories in November. 3. Need for immunization. She was given a Prevnar shot today. 4. Manic-depressive disturbance currently stable just on divalproex and no other psychoactive medicines. 5. Alcoholism currently dry and reassessed on this admission. Time component was 25 minutes, with the majority of time talking about her psychoactive medicines and whether medicines could be reduced. Brandin Kruger M.D./cipriano Electronically Signed By: BRANDIN KRUGER MD On: 10/08/2014 10:55 AM Brandin Kruger M.D./elena Electronically Signed By: BRANDIN KRUGER MD On: 10/08/2014 10:55 AM Co-Signed By: BRANDIN KRUGER MD On: 10/08/2014 02:08 PM Source: [facility] MHSDOLBEYNONRADSYS Document Id: [id number] S COUNTER CLERK documented in this encounter Miscellaneous Notes Telephone Encounter - Conversion, Historical Provider Ser - 10/23/2014 12:40 PM CST *Phone Message/Dr. Brandin Kruger Document Contains Addenda Addendum by IRVIN SALINAS LPN on 23 October 2014 13:09:35 PARTS COUNTER CLERK patient called will do labs day of appt Addendum by BRANDIN KRUGER MD on 23 October 2014 13:01:42 PARTS COUNTER CLERK From: BRANDIN KRUGER MD To: GRZEGORZ Kruger Nurse; Sent: 10/23/2014 13:01:42 PARTS COUNTER CLERK Subject: RE: *Phone Message/Dr. Brandin Kruger cannot do that on medicare insurance. I am not sure what she wants re bladder issues. Addendum by IRVIN SALINAS LPN on 23 October 2014 12:58:55 PARTS COUNTER CLERK From: IRVIN SALINAS LPN ( Brandin Kruger Nurse) To: BRANDIN KRUGER MD; Sent: 10/23/2014 12:58:55 PARTS COUNTER CLERK Subject: FW: *Phone Message/Dr. Brandin Kruger From: NAOMI LOWE ([facility] Coffee [employer]aster) To: Brandin Kruger Nurse; Sent: 10/23/2014 12:40:46 PARTS COUNTER CLERK Subject: *Phone Message/Dr. Brandin Kruger Caller is: ( x ) Patient ( ) Mother ( ) Father ( ) Spouse ( ) Daughter ( ) Son ( ) Pharmacy ( ) Other: Physician: Dr. Brandin Kruger Patient MRN #: Reason for Call: Message: S Patient states that she has a physical scheduled with Dr. Kruger on November 19 at 1:00. She would like her lab work done prior to that appointment. There were orders from Christie Moffett, but the patient states that Dr. Kruger is seeing her now for her diabetes and her A1C has been fine.She also stated that she saw Dr. Kruger on 10/09 and was put on an anti-biotic for a bladder infection. The bladder infection is better but not gone. B A R Please call patient back at [phone] to advise. Advice/Action: Source used: ( ) Verbalizes understanding [...] back cell phone number ( ) Source: [facility] Beep Document Id: [id number] Brandin Malik M.D. - 10/09/2014 1:00 PM CST Results Notification From: BRANDIN KRUGER MD Sent: 10/09/2014 13:00:35 PARTS COUNTER CLERK ! Show up: 10/09/2014 13:00:35 PARTS COUNTER CLERK Subject: Results Notification Actions: Notify patient of results Reminder Comments: nothing significant Results: Date Result Type Ind Result Name MBO Review Culture Urine Source: [facility] Beep Document Id: [id number] Brandin Malik M.D. - 10/08/2014 10:10 AM CST Results Notification Document Contains Addenda Addendum by IRVIN SALINAS LPN on 08 October 2014 13:50:48 PARTS COUNTER CLERK called with results From: BRANDIN KRUGER MD Sent: 10/08/2014 10:10:32 PARTS COUNTER CLERK ! Show up: 10/08/2014 10:10:32 PARTS COUNTER CLERK Subject: Results Notification Actions: Notify patient of results Reminder Comments: will try antibiotic sent Results: Date Result Name Ind Value Ref Range 10/08/2014 10:04 UA Color Yellow (Colorless - ) 10/08/2014 10:04 UA Clarity Clear (Clear - ) 10/08/2014 10:04 UA Spec Grav 1.020 10/08/2014 10:04 UA pH 7.5 (<5.0 - ) 10/08/2014 10:04 UA Protein Negative mg/dL (Negative - ) 10/08/2014 10:04 UA Glucose Negative mg/dL (Negative - ) 10/08/2014 10:04 UA Ketones Negative mg/dL (Negative - ) 10/08/2014 10:04 UA Bili Negative (Negative - ) 10/08/2014 10:04 UA Urobilinogen 0.2 mg/dL (0.2 - ) 10/08/2014 10:04 UA Blood (*) Trace (Negative - ) 10/08/2014 10:04 UA Nitrite Negative (Negative - ) 10/08/2014 10:04 UA Leuk Est (*) Trace (Negative - ) Source: [facility] POWERCHART Document Id: [id number] Miscellaneous - Brandin Kruger M.D. - 10/08/2014 9:47 AM CST Ambulatory Patient Summary [address] [id number] Visit Information Name: FRANCES HAGER [facility] Number: [id number] Current Date: 10/08/2014 09:47:14 Physicians Attending Provider: BRANDIN KRUGER MD Primary [...] the Following Medications: Medication list as of 10-08-14 09:47 Attention: If you have any medications at [...] Electronically Signed By: BRANDIN KRUGER MD Signed On:08-OCT-2014 09:46:25 Your Allergies & Intolerances Substance Reaction Symptoms [...] Clinic if further appointment detail needed. Your Diabetes Toolkit Do you find it [...] book ?? Extra batteries for your meter ?? An ID card that says you have diabetes and lists emergency contact numbers ?? [phone] Ana Gilliam, [address] [place] [phone]. All rights reserved. This information is not intended as a substitute for professional medical care. Always follow your healthcare professional's instructions. Your Goals/Additional instructions: This document has images extracted. Please consider using [employer] for all your patient education needs. Source: [facility] POWERCHART Document Id: [id number] S COUNTER CLERK Miscellaneous - Brandin Kruger M.D. - 10/08/2014 9:47 AM CST Ambulatory Discharge Medication List [address] [id number] Visit Information Name: FRANCES HAGER [facility] Number: [id number] Visit Date: 10/08/2014 09:47:12 Attending Provider: BRANDIN KRUGER MD Primary Care [...] the Following Medications: Medication list as of 10-08-14 09:47 Attention: If you have any medications at [...] Electronically Signed By: BRANDIN KRUGER MD Signed On:08-OCT-2014 09:46:25 Additional Information: Source: [facility] POWERCHART Document Id: [id number] S COUNTER CLERK Miscellaneous - Irvin Salinas L.P.N. - 10/08/2014 9:28 AM CST Adult Skull Grinder Intake/History Adult Skull Grinder Intake/History Entered On: 10/08/2014 9:31 PARTS COUNTER CLERK Performed On: 10/08/2014 9:28 PARTS COUNTER CLERK by IRVIN SALINAS LPN Intake Chief Complaint : recheck Temperature Core : 36.8 DegC(Converted to: 98.2 DegF) Peripheral Pulse Rate : 60 /min Heart Rhythm : Regular Systolic Blood Pressure : 128 mmHg Diastolic Blood Pressure : 70 mmHg [...] : 35.55 kg/m2 IRVIN SALINAS LPN - 10/08/2014 9:28 PARTS COUNTER CLERK General Info Information Given By : Patient Languages : Burkinan Is Patient Female and 13-50 no hysterectomy : No IRVIN SALINAS [facility] - 10/08/2014 9:28 PARTS COUNTER CLERK Subjective Pain Symptoms : No IRVIN SALINAS [facility] - 10/08/2014 9:28 PARTS COUNTER CLERK Dependent Habits Tobacco Use/Currently Using : No Exposure to Tobacco Smoke : Other: former smoker Smoking Status : Never smoker IRVIN SALINAS [facility] - 10/08/2014 9:28 PARTS COUNTER CLERK Caffeine Use Grid Caffeine Use : Current Type : Coffee IRVIN SALINAS [facility] - 10/08/2014 9:28 PARTS COUNTER CLERK Recreational Drug Use Grid Drug Use : None IRVIN SALINAS [facility] - 10/08/2014 9:28 PARTS COUNTER CLERK ID Screen Drug Resistant Organism : Yes Travel Within Last 21 Days : IRVIN Irizarry [facility] - 10/08/2014 9:28 PARTS COUNTER CLERK Source: [facility] POWERCHART Document Id: [id number] PARTS COUNTER CLERK!37 S COUNTER CLERK documented in this encounter Plan of Treatment Upcoming Encounters Date Type Specialty Care Team Description 09/27/2022 Office Visit Dermatology Marianela Braden M.D. [address] [place] [address] [phone] (Wo rk) documented as of this encounter Procedures Procedure Name Priority Date/Time Associated Diagnosis Comme nts BACTERIAL CULTURE, Routine 10/08/2014 10:31 AM Re sults for this AEROBIC, URINE PARTS COUNTER CLERK procedure are in the results section. URINALYSIS, Routine 10/08/2014 10:04 AM Results for this MIDSTREAM, WITH PARTS COUNTER CLERK procedure ar e in CULTURE IF the results INDICATED section. documented in this encounter Results Bacterial Culture, Aerobic, Urine (10/08/2014 10:31 AM PARTS COUNTER CLERK) [facility] Method Time Signature Bacterial POWERCHART Culture, Aerobic, Urine HXFinal Mixed alex. No POWERCHART further studies unless notified. [facility] POWERCHART Microbiology laboratory [phone] Specimen Anatomical Collection Method Collection Time Receive d Time (Source) Location / / Volume Laterality Micro Spec 10/08/2014 10:31 10/08/2014 AM PARTS COUNTER CLERK 10:31 AM PARTS COUNTER CLERK Brandin Kruger M.D. LAB MICROBIOLOGY - GENERAL O RDERABLES Performing Organization Address City/State/ZIP Code Phon e Number POWERCHART (ABNORMAL) Urinalysis, Midstream, with culture if indicated (10/08/2014 10:04 AM PARTS COUNTER CLERK) [facility] Method Time Signature Source Clean Void POWERCHART Urine HXUr Color Yellow Colorless POWERCHART Clarity Clear Clear POWERCHART Glucose Negative Negative POWERCHART MGDL HXBILIRUBIN Negative Negative POWERCHART Ketones, QL(U) Negative Negative POWERCHART MGDL Specific 1.020 POWERCHART [place], POCT, U HXBLOOD Trace (A) Negative POWERCHART pH, POCT, Urine 7.5 <5.0 POWERCHART Protein, Ur, Negative Negative POWERCHART Dip MGDL Urobilinogen 0.2 0.2 MGDL POWERCHART HXNITRITE Negative Negative POWERCHART Leukocyte Trace (A) Negative POWERCHART Esterase HXUR WBC. 4-10 None Seen POWERCHART HPF HXUR RBC. Occ-2 None Seen POWERCHART HPF HXUR Bacteria, Present (A) None Seen POWERCHART Squamous 4-10 (A) None Seen POWERCHART Epithelial HPF Specimen (Source) Anatomical Collection Method Collection Time Re ceived Time Location / / Volume Laterality Urine 10/08/2014 10:04 AM PARTS COUNTER CLERK Brandin Kruger M.D. LAB URINE ORDERABLES Performing Organization Address [facility] Phon e Number POWERCHART documented in this encounter Visit Diagnoses Not on filedocumented in this encounter Additional Health Concerns Assessment Noted Time PHQ-9 Depression Total Score: 3 05/05/2014 7:55 AM CDT documented as of this encounter
--- OUTSIDE RECORDS SUMMARY | 2022-08-14 22:59 | XMS_ITS | Encounter Summary ---
:1945 Author Organization [facility] Address [address] [place] [address] Care Team Providers Name Role Phone Unavailable Primary Care Provider Unavailable Encounter Details Date Type Department Care Team Description 03/10/2014 Hospital Encounter HX [facility] FBHB INTERNMED Jairo Kruger M.D. [address] [place] [address] 021 (Wo rk) Social History Tobacco Use Types Packs/Day Years Used Date Smoking Tobacco: Never Assessed Sex Assigned at Date Recorded Not on file documented as of this encounter Last Filed Vital Signs Vital Sign Reading Time Taken Comments Blood Pressure 122/64 03/10/2014 3:17 PM CDT Pulse 80 03/10/2014 3:17 PM CDT Temperature - - Respiratory Rate - - Oxygen Saturation - - Inhaled Oxygen Concentration - - Weight 93 kg (205 lb 0.4 oz) 03/10/2014 3:17 PM CDT Height - - Body Mass Index 36.33 11/25/2013 9:03 AM DESCRIPTIVE CATALOG LIBRARIAN documented in this encounter Progress Notes Brandin Kruger M.D. - 03/10/2014 3:10 PM CDT [id number] DISCHARGE DATE 03/09/2014, from [facility]. ADMISSION DATE 03/06/2014. PRINCIPLE DISCHARGE DIAGNOSES Syncope and hypovolemic hyponatremia. PRINCIPLE PROBLEMS Syncope and collapse. ACTIVE PROBLEMS Essential hypertension. Dyslipidemia. Type 2 AODM. Vitamin B12 deficiency. Anxiety. Hyponatremia. Alcohol abuse. Patient has been 1 week without alcohol. I congratulated on that, but the took all the alcohol from the home and by his report removed 112 bottles of alcohol hidden in various locations from the house. I find it truly remarkable and unusual that this patient has been able to be off alcohol without withdrawal or without delirium tremens, but in point of the fact perhaps there is something in her hospitalization that relates to that. She was at an art show up in the [facility] and had a number of near syncopal episodes and they suspected orthostatic hypotension and found that at [place]. They removed her hydrochlorothiazide which was a good move and hydrated her with normal saline and sodium was 131 upon discharge. It was 116 upon admission. While she was there she also had a number of tests. She had an EGD which revealed gastritis and esophagitis and was put on Protonix. She had a CT scan of abdomen which was negative. A CT of head which was negative and a TTE which showed normal left ventricular size, borderline wall thickness, normal global systolic function with EF of 60 to 65% and grade 1 pattern of LV diastolic filling, a thorough workup. Frances feels fine and really is offering no complaints, except for diarrhea today. As her A1c was checked recently and was 6, her diarrhea is probably from metformin and she can decrease it from 850 twice a day to 500 twice a day. The patient also has been placed on magnesium oxide and she is not on diuretics and she is not drinking. Magnesium should become replaced quite quickly and of course magnesium oxide provides potent diarrhea-producing effect as well. So I will cut her magnesium oxide from 2 a day to once a day and drop her metformin from 850 twice a day to 500 mg twice a day. I think we can also drop her atenolol from 50 mg twice a day to 50 once a day at supper. Because as she abstains from alcohol, her hypertension is likely to get better. I told her that she must continue to do not drink, that she must make her chemical dependency appointment anew at [facility], as they canceled the appointment which was at 1:45 today, and that she is able to exercise at [facility] and proceed normally at this point with these changes in medications. MEDICATIONS Per [facility] EMR. ALLERGIES Per [facility] EMR. SYSTEMS REVIEW Review of systems in all areas except as mentioned above is negative. PREVENTIVE SERVICES: Per [facility] EMR. Handwashing done prior to patient contact. PAST MEDICAL/SURGICAL HISTORY Per [facility] EMR. VITAL SIGNS Per [facility] EMR. PHYSICAL EXAMINATION Not performed. IMPRESSION/REPORT/PLAN 1. Hypovolemic hypotonic hyponatremia. The patient's discontinuation of hydrochlorothiazide was a good move. I suspect a sodium will be normal today. A BMP was done. 2. Diarrhea. Decrease metformin from 850 twice a day to 500 twice a day and drop magnesium oxide from 2 pills a day to once a day. 3. Alcoholism. Apparently 1 week dry. She should call [facility] and make a reappointment for the appointment with Chemical Dependency that they missed today. 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 Continue on Protonix and abstain from alcohol. 5. Hypertension. Blood pressure is likely to improve as she is off alcohol, so I will drop her atenolol from 50 twice a day to 50 once a day at [facility], effective today. The patient had a BMP today, will call with results. The patient should come see me 1 week after she has her chemical dependency appointment at [facility]. TIME COMPONENT All of it counseling. Brandin Kruger M.D./cipriano Electronically Signed By: BRANDIN KRUGER MD On: 03/10/2014 08:32 PM Source: [facility] MHSDOLBEYNONRADSYS Document Id: [id number] documented in this encounter Miscellaneous Notes Miscellaneous - Brandin Kruger M.D. - 03/10/2014 8:33 PM CDT Results Notification Document Contains Addenda Addendum by IRVIN SALINAS LPN on 11 Mar 2014 07:36:47 CDT patient given results From: BRANDIN KRUGER MD Sent: 03/10/2014 20:33:21 CDT ! Show up: 03/10/2014 20:33:21 CDT Subject: Results Notification Actions: Notify patient of results Reminder Comments: ok Results: Date Result Name Ind Value Ref Range 03/10/2014 15:56 Sodium Lvl (L) 132 mmol/L (135 - 145) 03/10/2014 15:56 Potassium Lvl 4.4 mmol/L (3.5 - 4.8) 03/10/2014 15:56 Chloride (L) 94 mmol/L (100 - 108) 03/10/2014 15:56 CO2 27 mmol/L (22 - 30) 03/10/2014 15:56 Glucose Lvl 111 03/10/2014 15:56 Creatinine 0.7 mg/dL (0.7 - 1.2) 03/10/2014 15:56 EGFR (MDRD) >60 mL/min 03/10/2014 15:56 EGFR (MDRD) >60 mL/min 03/10/2014 15:56 BUN 9 mg/dL (6 - 20) 03/10/2014 15:56 Calcium Lvl 9.3 mg/dL (8.5 - 10.5) Source: [facility] POWERCHART Document Id: [id number] Miscellaneous - Brandin Kruger M.D. - 03/10/2014 3:39 PM CDT Ambulatory Patient Summary [address] [id number] Visit Information Name: FRANCES HAGER [facility] Number: [id number] Current Date: 03/10/2014 15:39:38 Physicians Attending Provider: BRANDIN KRUGER MD Primary [...] Tablet(s), Oral, once a day at supper This is a CHANGE atorvastatin (Lipitor 40 mg oral tablet) 1 [...] oxide) 400 mg, Oral, once a day This is a CHANGE metFORMIN (metFORMIN 500 mg oral tablet) 1 Tablet(s), Oral, two times a day with meals This is a CHANGE Routed to [address] [address] multivitamin (multivitamin) Oral, once a day multivitamin with minerals (Ocuvite Lutein oral capsule) 1 cap, Oral, once a day pantoprazole (pantoprazole 40 mg oral delayed release tablet) 1 Tablet(s), Oral, once a day This is a CHANGE PARoxetine (Paxil 20 mg oral tablet) 1 Tablet(s), Oral, once a day Stop Taking the Following Medications: Medication list as of 03-10-14 15:39 Attention: If you have any medications at [...] Electronically Signed By: BRANDIN KRUGER MD Signed On:10-MAR-2014 15:39:29 Your Allergies & Intolerances Substance Reaction Symptoms Category Comments No Known Allergies Your Problem List Problem Status Onset Comments Combined hyperlipidemia Active 04/11/2013 HTN [Hypertension] Active 04/11/2013 DM II (or NOS), controlled Active 04/11/2013 Alcoholism Pers Hx Active Disorder Obsessive Compulsive Personality (OCPD) Active Your Upcoming Appointments Date Time Location Reason Provider 03/27/2014 09:30 [facility] check on med Brandin Kruger MD 05/26/2014 13:15 [facility] recheck Brandin Kruger MD Attention: Contact your local Clinic if further appointment detail needed. Your Goals/Additional instructions: Source: [facility] POWERCHART Document Id: [id number] Miscellaneous - Brandin Kruger M.D. - 03/10/2014 3:39 PM CDT Ambulatory Discharge Medication List [address] [id number] Visit Information Name: FRANCES HAGER [facility] Number: [id number] Visit Date: 03/10/2014 15:39:36 Attending Provider: BRANDIN KRUGER MD Primary Care [...] Tablet(s), Oral, once a day at supper This is a CHANGE atorvastatin (Lipitor 40 mg oral tablet) 1 [...] oxide) 400 mg, Oral, once a day This is a CHANGE metFORMIN (metFORMIN 500 mg oral tablet) 1 Tablet(s), Oral, two times a day with meals This is a CHANGE Routed to [address] [address] multivitamin (multivitamin) Oral, once a day multivitamin with minerals (Ocuvite Lutein oral capsule) 1 cap, Oral, once a day pantoprazole (pantoprazole 40 mg oral delayed release tablet) 1 Tablet(s), Oral, once a day This is a CHANGE PARoxetine (Paxil 20 mg oral tablet) 1 Tablet(s), Oral, once a day Stop Taking the Following Medications: Medication list as of 03-10-14 15:39 Attention: If you have any medications at [...] Electronically Signed By: BRANDIN KRUGER MD Signed On:10-MAR-2014 15:39:29 Additional Information: Source: [facility] POWERCHART Document Id: [id number] Miscellaneous - Irvin Salinas L.PLoriN. - 03/10/2014 3:17 PM CDT Adult Set Up Worker Intake/History Adult Set Up Worker Intake/History Entered On: 03/10/2014 15:18 CDT Performed On: 03/10/2014 15:17 CDT by IRVIN SALINAS LPN Intake Chief Complaint : post hospital Peripheral Pulse Rate : 80 /min Heart Rhythm : Regular Systolic Blood Pressure : 122 mmHg Diastolic Blood Pressure : 64 mmHg NIBP Mean : 83 mmHg BP Location : Left upper extremity Blood Pressure Cuff Size : Large Actual Weight : 93 kg(Converted to: 205 lb 0 oz) Weight Source : Standing scale Dosing Weight Clinic : 93 kg IRVIN SALINAS LPN - 03/10/2014 15:17 CDT General Info Information Given By : Patient Languages : Spanish IRVIN SALINAS LPN - 03/10/2014 15:17 CDT Subjective Pain Symptoms : IRVIN Irizarry LPN - 03/10/2014 15:17 CDT Dependent Habits Tobacco Use/Currently Using : No Exposure to Tobacco Smoke : Other: former smoker Smoking Status : Never smoker Alcohol Use : No IRVIN SALINAS LPN - 03/10/2014 15:17 CDT Caffeine Use Grid Caffeine Use : Current Type : Coffee IRVIN SALINAS [employer] - 03/10/2014 15:17 CDT Recreational Drug Use Grid Drug Use : None IRVIN SALINAS JEFFREY - 03/10/2014 15:17 CDT Source: [facility] POWERCHART Document Id: [id number] CDT!30 documented in this encounter Plan of Treatment Upcoming Encounters Date Type Specialty Care Team Description 09/27/2022 Office Visit Dermatology Marianela Braden M.D. [address] [place] [address] [phone] (Wo rk) documented as of this encounter Procedures Procedure Name Priority Date/Time Associated Diagnosis Comme nts BASIC METABOLIC Routine 03/10/2014 3:56 PM Result s for this PANEL, S/P CDT procedure are i n the results section. documented in this encounter Results (ABNORMAL) BMP (Basic Metabolic Panel) (03/10/2014 3:56 PM CDT) P athologist Signature BUN (Blood Urea 9 6 - 20 POWERCHART Nitrogen), S MGDL Creatinine 0.7 0.7 - 1.2 POWERCHART MGDL Glucose 111 POWERCHART Potassium, S 4.4 3.5 - 4.8 POWERCHART MMOLL Sodium, S 132 (L) 135 - 145 POWERCHART MMOLL Chloride, S 94 (L) 100 - 108 POWERCHART MMOLL CO2 Total 27 22 - 30 POWERCHART MMOLL Calcium, Total, 9.3 8.5 - 10.5 POWERCHART S MGDL HXeGFR (MDRD) >60 MLMIN POWERCHART eGFR >60 MLMIN POWERCHART Black/ Specimen (Source) Anatomical Collection Method Collection Time Re ceived Time Location / / Volume Laterality Blood 03/10/2014 3:56 PM CDT Brandin Kruger M.D. LAB BLOOD ADD-ON Performing Organization Address City/State/ZIP Code Phon e Number POWERCHART documented in this encounter Visit Diagnoses Not on filedocumented in this encounter
--- OUTSIDE RECORDS SUMMARY | 2022-08-14 22:59 | XMS_ITS | Encounter Summary ---
:1945 Author Organization [facility] Address [address] [place] [address] Care Team Providers Name Role Phone Unavailable Primary Care Provider Unavailable Encounter Details Date Type Department Care Team Description 03/04/2015 Hospital Encounter HX [facility] INTERNMED Jairo Kruger M.D. [address] [place] [address] 021 (Wo rk) Social History Tobacco Use Types Packs/Day Years Used Date Smoking Tobacco: Never Assessed Sex Assigned at Date Recorded Not on file documented as of this encounter Last Filed Vital Signs Vital Sign Reading Time Taken Comments Blood Pressure 124/72 03/04/2015 10:24 AM CDT Pulse 60 03/04/2015 10:24 AM CDT Temperature - - Respiratory Rate 16 03/04/2015 10:24 AM CDT Oxygen Saturation - - Inhaled Oxygen Concentration - - Weight 94 kg (207 lb 3.7 oz) 03/04/2015 10:24 AM CDT Height 160 cm (5' 2.99) 03/04/2015 10:24 AM CDT Body Mass Index 36.72 03/04/2015 10:24 AM CDT documented in this encounter Medications at Time of Discharge Medication Sig Dispensed Refills Start Date End Date aspirin [address] tablet Take 1 tablet by mouth 0 03/14/2014 daily. documented as of this encounter Progress Notes Brandin Kruger M.D. - 03/04/2015 10:13 AM CDT [id number] Frances presents today to basically go through a number of issues. 1. First of all, her obsessive compulsive disorder is under good control on Depakote and we have eliminated all the other pills that the psychiatrists had originally prescribed. She does well and she is abstinent from alcohol for more than a year and a half now. That is a wonderful thing and I was camacho in my approbation lavish in my praise. 2. Second issue consists of diabetes, which is under good control on just 1 metformin. Diarrheas hascompletely remitted since she went to 1 metformin a day and last A1c was 6.0, which is great. 3. Problem #3 is a balance disorder. The patient had this before going on Depakote and she would like to do physical therapy for that and pain in her back. She wonders if it is shingles pain but immediately I think not because she says it is on both sides. She had shingles on the right side but this is on both sides. I will have to look at her back. MEDICATIONS Per [facility] EMR. ALLERGIES Per [facility] EMR. SYSTEMS REVIEW Review of systems in all areas except as mentioned above is negative. PREVENTIVE SERVICES: Per [facility] EMR. Handwashing done prior to patient contact. PAST MEDICAL/SURGICAL HISTORY Per [facility] EMR. VITAL SIGNS Per [facility] EMR. PHYSICAL EXAMINATION ENT: Eyes: Conjunctivae and lids normal. Pupils equal, round, reactive to light and accommodation. Extraocular movements normal. Sclerae nonicteric. Ophthalmologic exam grossly [...] or fourthsound, no significant murmur, no gallop. BACK: Reveals paravertebral muscle tenderness in the mid lumbar spine on both sides. There is no skin rash or anything that suggest sequela of shingles. IMPRESSION/REPORT/PLAN 1. Diabetes, under excellent control. 2. Obsessive compulsive disorder, well controlled. 3. Hypertension, well controlled. 4. Disequilibrium. 5. Lumbar strain. PLAN: Will write a physical therapy order for the treatment of balance and also treatment of her lumbar strain. So the diagnoses of the back pain is lumbar strain and the diagnosis of her balance is simple disequilibrium. She does physical therapy in [place] so I will fill out a form to that effectand I will have her work with them for 6 to 8 weeks and I will see her in 6 weeks to assess the progress of physical therapy. She was comfortable with that. Brandin Kruger M.D./cipriano Electronically Signed By: BRANDIN KRUGER MD On: 03/04/2015 11:54 AM Source: [facility] MHSDOLBEYNONRADSYS Document Id: [id number] documented in this encounter Miscellaneous Notes Telephone Encounter - Conversion, Historical Provider Ser - 08/05/2016 10:02 AM CDT *Phone Message/tyrese Document Contains Addenda Addendum by IRVIN SALINAS LPN on August 08, 2016 09:10:16 CDT called with results Addendum by BRANDIN KRUGER MD on August 05, 2016 19:29:09 CDT From: BRANDIN KRUGER MD To: GRZEGORZ Kruger Nurse; Sent: 08/05/2016 19:29:09 CDT Subject: RE: *Phone Message/tyrese A!C 7.4 and OK Addendum by FREDERIC JIMENEZ LPN on August 05, 2016 11:41:24 CDT From: FREDERIC JIMENEZ LPN (GRZEGORZ Kruger Nurse) To: BRANDIN KRUGER MD; Sent: 08/05/2016 11:41:24 CDT Subject: FW: *Phone Message/tyrese From: DINA CONNOR ( Brandin Kruger Nurse) To: Brandin Kruger Nurse; Sent: 08/05/2016 10:02:12 CDT Subject: *Phone Message/tyrese Caller is: ( x ) Patient ( ) Mother ( ) Father ( ) Spouse ( ) Daughter ( ) Son ( ) Pharmacy ( ) Other: Physician: Patient MRN #: Reason for Call: pt had lab test on 08/01/16 and she would like the results. Please call the pt at [phone] Message: Advice/Action: Source used: ( ) Verbalizes [...] phone number ( ) [facility] [place] Document Id: [id number] Telephone Encounter - Conversion, Historical Provider Ser - 05/07/2015 12:39 PM CDT *Phone Message/Dr. Brandin Kruger Document Contains Addenda Addendum by IRVIN SALINAS LPN on 07 May 2015 13:00:44 CDT Daphne called with faxed progress notes From: NAOMI LOWE ( [facility]) To: Brandin Kruger Nurse; Sent: 05/07/2015 12:39:27 CDT Subject: *Phone Message/Dr. Brandin Kruger Caller is: ( ) Patient ( ) Mother ( ) Father ( ) Spouse ( ) Daughter ( ) Son ( ) Pharmacy ( x ) Other: Daphne from [facility] Physician: Dr. Brandin Kruger Patient MRN #: Reason for Call: Message: Indigo Daphne is checking to see if you received the progress notes on this patient that they sent to you. B Patient has an appointment with you at 1:30 today. A R Please call Daphne, or whoever answers, at [phone] and let them know if you received the notes. Advice/Action: Source used: ( ) Verbalizes understanding [...] back cell phone number ( ) Source: [facility] [employer] Document Id: [id number] Miscellaneous - Brandin Kruger M.D. - 03/04/2015 10:44 AM CDT Ambulatory Patient Summary [address] [id number] Visit Information Name: FRANCES HAGER [facility] Number: [id number] Current Date: 03/04/2015 10:43:59 Physicians Attending Provider: BRANDIN KRUGER MD Primary [...] the Following Medications: Medication list as of 03-04-15 10:43 Attention: If you have any medications at [...] Electronically Signed By: BRANDIN KRUGER MD Signed On:04-MAR-2015 10:42:55 Your Allergies & Intolerances Substance Reaction Symptoms [...] 11:00 FBHB Mammo FBHB MA Room 1 05/28/2015 10:00 FBHB Lab FBHB Lab Attention: Contact your local Clinic if further [...] diabetes and lists emergency contact numbers ?? [phone] [facility], [address] [place] [address], [place] [address]. All rights reserved. This information is not intended as a substitute for professional medical care. Always follow your healthcare professional's instructions. Your Goals/Additional instructions: This document has images extracted. Please consider using [email or web address] for all your patient education needs. Source: [facility] POWERCHART Document Id: [id number] Miscellaneous - Brandin Kruger M.D. - 03/04/2015 10:43 AM CDT Ambulatory Discharge Medication List [address] [id number] Visit Information Name: FRANCES HAGER [facility] Number: [id number] Visit Date: 03/04/2015 10:43:57 Attending Provider: BRANDIN KRUGER MD Primary Care [...] the Following Medications: Medication list as of 03-04-15 10:43 Attention: If you have any medications at [...] Electronically Signed By: BRANDIN KRUGER MD Signed On:04-MAR-2015 10:42:55 Additional Information: Source: [facility] POWERCHART Document Id: [id number] Miscellaneous - Irvin Salinas L.PLoriNLori - 03/04/2015 10:24 AM CDT Adult Dog Beautician Intake/History Adult Dog Beautician Intake/History Entered On: 03/04/2015 10:28 CDT Performed On: 03/04/2015 10:24 CDT by IRVIN SALINAS LPN Intake Chief [...] 3 inch(es), 63 inch(es)) Actual Weight : 94 kg(Converted to: 207 lb 4 oz) Weight Source : Standing scale Dosing Weight Clinic : 94 kg Clinic BSA : 2.04 Body Mass Index : 36.72 kg/m2 SALINAS, IRVIN LENNOX [facility] OF LOSS PREVENTION - 03/04/2015 10:24 CDT General Info Information Given By : Patient Languages : Greek Is Patient Female and 13-50 no hysterectomy : IRVIN Irizarry [facility] PREVENTION - 03/04/2015 10:24 CDT Subjective Pain Symptoms : No IRVIN SALINAS [facility] PREVENTION - 03/04/2015 10:24 CDT Dependent Habits Tobacco Use/Currently Using : No Exposure to Tobacco Smoke : Other: former smoker Smoking Status : Never smoker IRVIN SALINAS [facility] - 03/04/2015 10:24 CDT Caffeine Use Grid Caffeine Use : Current Type : Coffee IRVIN SALINAS [facility] PREVENTION - 03/04/2015 10:24 CDT Recreational Drug Use Grid Drug Use : None IRVIN SALINAS [facility] 03/04/2015 10:24 CDT ID Screen Drug Resistant Organism : Yes Travel Within Last 21 Days : No Contact with someone with Ebola : IRVIN Irizarry [facility] PREVENTION 03/04/2015 10:24 CDT Source: [employer] Document Id: [id number]!39 documented in this encounter Plan of Treatment Upcoming Encounters Date Type Specialty Care Team Description 09/27/2022 Office Visit Dermatology Marianela Braden M.D. [address] [place] [address] [phone] (Wo rk) documented as of this encounter Visit Diagnoses Not on filedocumented in this encounter Additional Health Concerns Assessment Noted Time PHQ-9 Depression Total Score: 3 05/05/2014 7:55 AM CDT documented as of this encounter
--- OUTSIDE RECORDS SUMMARY | 2022-08-14 22:59 | XMS_ITS | Encounter Summary ---
:1945 Author Organization [facility] Address [address] [place] [address] Care Team Providers Name Role Phone Unavailable Primary Care Provider Unavailable Encounter Details Date Type Department Care Team Description 11/25/2013 Hospital Encounter HX [facility] Iona Garcia, FREDIS, C.N.P. [address] [place] [address] (Wo rk) Social History Tobacco Use Types Packs/Day Years Used Date Smoking Tobacco: Never Assessed Sex Assigned at Date Recorded Not on file documented as of this encounter Last Filed Vital Signs Vital Sign Reading Time Taken Comments Blood Pressure 110/58 11/25/2013 8:18 AM ASSISTANT COOK Pulse 72 11/25/2013 8:18 AM ASSISTANT COOK Temperature - - Respiratory Rate - - Oxygen Saturation - - Inhaled Oxygen Concentration - - Weight 94 kg (207 lb 3.7 oz) 11/25/2013 8:18 AM ASSIST[facility] COOK Height - - Body Mass Index 37.09 08/21/2013 1:10 PM CDT documented in this encounter Progress Notes Argelia Garcia, FREDIS, C.N.P. - 11/25/2013 8:03 AM CST [id number] CHIEF COMPLAINT/REASON FOR VISIT 1. Diabetes type 2 controlled. 2. Hyperlipidemia. 3. Hypertension. HISTORY OF PRESENT ILLNESS 1. Frances is here for recheck. She had A1c checked a week ago. It is excellent at 6.0. She is due for foot exam. Eye exam will be due in January. 2. Hyperlipidemia. She had lipids checked a week ago. Also her LDL is excellent at 80, HDL 63, triglycerides mildly elevated at 202. She states she is eating more sweets now. She is trying to lose weight and will work on cutting back a little. I gave her a couple handouts today on carbohydrate counting. 3. Hypertension. Blood pressure excellent 118/62. She is tolerating atenolol, hydrochlorothiazide and lisinopril without any adverse effects. MEDICATIONS See depart summary from today. ALLERGIES None. SYSTEMS REVIEW Positive for that mentioned in the history of present illness and noted in the past medical history in the EMR. All other systems are reviewed and are negative. PREVENTIVE: Foot exam was done today. She will schedule for dilated eye exam in January. VITAL SIGNS See EMR. PHYSICAL EXAMINATION Well developed, well nourished female in no acute distress. SKIN: Warm and dry. TMs clear. Throat clear. NECK: Supple. LUNGS: Clear to auscultation. HEART: Regular rate and rhythm. EXTREMITIES: Warm, dry, no peripheral edema. Normal sensation tops and bottoms of feet with monofilament. IMPRESSION/REPORT/PLAN 1. Diabetes type 2 controlled. Will plan to recheck A1c in 6 months. She will schedule for dilated eye exam in January. I gave her handouts today on carbohydrate counting. 2. Hyperlipidemia. Continue with Lipitor 40 mg daily, watch intake of refined sugar and continue with great exercise program. 3. Hypertension currently controlled. No changes. Recheck in 6 months. Argelia Garcia CNP/yoshi Electronically Signed By: ARGELIA GARCIA CNP On: 11/26/2013 07:56 AM Source: [facility] [id number] Document Id: [id number] STANT COOK documented in this encounter Miscellaneous Notes Miscellaneous - Argelia Garcia APRN, C.N.P. - 11/25/2013 9:35 AM CST General Message From: ARGELIA GARCIA CNP To: FRANCES HAGER Sent: 11/25/2013 09:35:10 ASSISTANT COOK Subject: General Message Frances, I thought I would try the Patient Portal and see if it is working for you. Your last Tetanus booster(including whooping cough) was given on September 07, 2010. It is good for 10 years. Argelia Source: [facility] POWERCHART Document Id: [id number] Electronically signed by Antonette [facility] Medical Coding Instructor [id number] at 04/04/2017 8:05 AM CDT Miscellaneous - Argelia Garcia, FREDIS, C.N.P. - 11/25/2013 8:39 AM CST Ambulatory Patient Summary [address] [address] Visit Information Name: FRANCES HAGER [facility] Number: [id number] Current Date: 11/25/2013 08:39:45 Physicians Attending Provider: ARGELIA GARCIA FILLING WINDER Primary Care Provider: BRANDIN KRUGER MD FRANCES [...] Instructions/Comments/Notes for Patient Medication Changes/Routing aspirin (aspirin 325 mg oral tablet) 1 Tablet(s), Oral, once [...] Oral, two times a day with meals [facility] Prescription (omega 3 fatty acids-fish) 664/1200mg 1 po bid multivitamin (multivitamin) Oral, once a day multivitamin with minerals (Ocuvite Lutein oral capsule) 1 cap, Oral, once a day Stop Taking the Following Medications: Medication list as of 11-25-13 08:39 Attention: If you have any medications at [...] Upcoming Appointments Date Time Location Reason Provider 11/25/2013 09:30 [facility] followup per patient Brandin Kruger MD Attention: Contact your local Clinic if further appointment detail needed. Your Goals/Additional instructions: Source: [facility] POWERCHART Document Id: [id number] STANT COOK Miscellaneous - Argelia Garcia APRN, C.N.P. - 11/25/2013 8:39 AM CST Ambulatory Depart Summary [address] [address] Visit Information Name: FRANCES HAGER [facility] Number: [id number] Visit Date: 11/25/2013 08:39:43 Attending Provider: ARGELIA GARCIA [facility] Primary Care Provider: BRANDIN KRUGER MD [...] Instructions/Comments/Notes for Patient Medication Changes/Routing aspirin (aspirin 325 mg oral tablet) 1 Tablet(s), Oral, once [...] Oral, two times a day with meals [facility] [place] Prescription (omega 3 fatty acids-fish) 664/1200mg 1 po bid multivitamin (multivitamin) Oral, once a day multivitamin with minerals (Ocuvite Lutein oral capsule) 1 cap, Oral, once a day Stop Taking the Following Medications: Medication list as of 11-25-13 08:39 Attention: If you have any medications at home that are not on this list, DO NOT take them until youcontact your provider for clarification. Give a copy of your medication list to your primary care provider. Update your medication list any time medications or doses are changed and carry your medication list at all times in case of emergency. Additional Information: Source: [facility] POWERCHART Document Id: [id number] STANT COOK Miscellaneous - Argelia Garcia APRN, C.N.P. - 11/25/2013 8:34 AM CST Quality Measures Quality Measures Entered On: 11/25/2013 8:34 ASSISTANT COOK Performed On: 11/25/2013 8:34 ASSISTANT COOK by ARGELIA GARCIA CNP Diabetes Date of Last Foot Exam : 11/25/2013 ASSISTANT COOK ARGELIA GARCIA CNP - 11/25/2013 8:34 ASSISTANT COOK Foot Exam Grid Left foot exam Right foot exam Dorsalis Pedis Pulse : Normal Normal Capillary Refill : Less than 3 seconds Less than 3 seconds 10 gm Monofilament Sensation Check : Intact Intact ARGELIA GARCIA [facility] - 11/25/2013 8:34 ASSISTANT COOK ARGELIA GARCIA [facility] - 11/25/2013 8:34 ASSISTANT COOK Source: [employer] Document Id: [id number] ASSISTANT COOK!12 STANT COOK Miscellaneous - Jorge Han L.P.N. - 11/25/2013 8:18 AM CST Adult [place] Intake/History Adult [place] Intake/History Entered On: 11/25/2013 8:19 ASSISTANT COOK Performed On: 11/25/2013 8:18 ASSISTANT COOK by JORGE HAN Intake Chief Complaint : diabetes recheck LMP Date : Hysterectomy Peripheral Pulse Rate : 72 /min Systolic Blood Pressure : 110 mmHg Diastolic Blood Pressure : 58 mmHg NIBP Mean : 75 mmHg Actual Weight : 94.0 kg(Converted to: 207 lb 4 oz) Dosing Weight Clinic : 94 kg JORGE HAN - 11/25/2013 8:18 ASSISTANT COOK General Info Information Given By : Patient Preferred Communication Mode : Verbal Languages : Sammarinese JORGE HAN - 11/25/2013 8:18 ASSISTANT COOK Subjective Pain Symptoms : No JORGE HAN - 11/25/2013 8:18 ASSISTANT COOK Dependent Habits Tobacco Use/Currently Using : No Exposure to Tobacco Smoke : Other: former smoker Smoking Status : Former smoker JORGE HAN - 11/25/2013 8:18 ASSISTANT COOK Caffeine Use Grid Caffeine Use : Current Type : Coffee JORGE HAN - 11/25/2013 8:18 ASSISTANT COOK Recreational Drug Use Grid Drug Use : None JORGE HAN - 11/25/2013 8:18 ASSISTANT COOK [facility] Id: [id number] ASSISTANT COOK!27 STANT COOK documented in this encounter Plan of Treatment Upcoming Encounters Date Type Specialty Care Team Description 09/27/2022 Office Visit Dermatology Marianela Braden M.D. [address] [place] [phone] (Wo rk) documented as of this encounter Visit Diagnoses Not on filedocumented in this encounter
--- OUTSIDE RECORDS SUMMARY | 2022-08-14 22:59 | XMS_ITS | Encounter Summary ---
:1945 Author Organization [facility] Address [address] [place] [address] Care Team Providers Name Role Phone Unavailable Primary Care Provider Unavailable Encounter Details Date Type Department Care Team Description 03/27/2015 Hospital Encounter HX [facility] BONE DENS Jairo Kruger M.D. [address] [place] [phone] (Wo yajaira) Social History Tobacco [...] - Height 160 cm (5' 2.99) 03/27/2015 10:24 AM CDT Body Mass Index - - documented in this encounter Medications at Time of Discharge Medication Sig Dispensed Refills Start Date End Date aspirin [address] tablet Take 1 tablet by mouth 0 03/14/2014 daily. documented as of this encounter Plan of Treatment Upcoming Encounters Date Type Specialty Care Team Description 09/27/2022 Office Visit Dermatology Marianela Braden M.D. [address] [place], [place] [phone] (Wo rk) documented as of this encounter Procedures Procedure Name Priority Date/Time Associated Diagnosis Comme nts BMD BONE DENSITY Routine 03/27/2015 10:30 AM Resu lts for this SPINE HIPS CDT procedure are i n the results section. documented in this encounter Results BMD BONE DENSITY SPINE HIPS (03/27/2015 10:30 AM CDT) Anatomical Region Laterality Modality Hip, Lumbar Spine N/A Radiographic Imaging Specimen (Source) Anatomical Collection Method Collection Time Re ceived Time Location / / Volume Laterality 03/27/2015 10:30 AM CDT Addenda Addendum by ProviderAmy M.D. o n 03/27/2015 10:30 AM CDT RAD^^^OW BD Bone Density Screening 03/27/2015 10:30:00 Impressions 03/27/2015 2:57 PM CDT To see the signed report please check the scanned copy in the patient's powerchart. This report was administratively signed by proxy from a [employer] educational administrator for system process complet ion purposes. Narrative 03/27/2015 2:57 PM CDT Originally Signed By Contributor_system Code [email or web address] EXAM: BD Bone Density Screening INDICATION: screening Procedure Note ProviderAmy M.D. - 03/15/2017F ormatting of this note might be different from the original. Originally Signed By Contributor_[email or web address] EXAM: BD Bone Density Screening INDICATION: screening IMPRESSION: To see the signed report ple ase check the scanned copy in the patient's powerchart. This report was administratively signed by proxy from a [employer] educational administrator for system process complet ion purposes. Wendy Chavez(R), R.TLori(R)(M) IMG DXA PROCEDURES documented in this encounter Visit Diagnoses Not on filedocumented in this encounter Additional Health Concerns Assessment Noted Time PHQ-9 Depression Total Score: 3 05/05/2014 7:55 AM CDT documented as of this encounter
--- OUTSIDE RECORDS SUMMARY | 2022-08-14 22:59 | XMS_ITS | Encounter Summary ---
:1945 Author Organization [facility] Address [address] [place] [address] Care Team Providers Name Role Phone Unavailable Primary Care Provider Unavailable Encounter Details Date Type Department Care Team Description 07/29/2014 Hospital Encounter HX [facility] INTERNMED Jairo Kruger M.D. [address] [place] [address] 021 (Wo rk) Social History Tobacco Use Types Packs/Day Years Used Date Smoking Tobacco: Never Assessed Sex Assigned at Date Recorded Not on file documented as of this encounter Last Filed Vital Signs Vital Sign Reading Time Taken Comments Blood Pressure 122/76 07/29/2014 8:29 AM CDT Pulse 60 07/29/2014 8:29 AM CDT Temperature - - Respiratory Rate 16 07/29/2014 8:29 AM CDT Oxygen Saturation - - Inhaled Oxygen Concentration - - Weight 94 kg (207 lb 3.7 oz) 07/29/2014 8:29 AM CDT Height 160 cm (5' 2.99) 07/29/2014 8:29 AM CDT Body Mass Index 36.72 07/29/2014 8:29 AM CDT documented in this encounter Medications at Time of Discharge Medication Sig Dispensed Refills Start Date End Date aspirin [address] tablet Take 1 tablet by mouth 0 03/14/2014 daily. documented as of this encounter H&P Notes Brandin Kruger M.D. - 07/29/2014 8:22 AM CDT [id number] This is a preoperative examination for a rotator cuff repair of the left arm under the aegis of Dr. Andrew Brewer, performed in [facility] on August 08, 2014. MEDICATIONS 1. Exelon 0.6 mg per 24-hour patch on every a.m. or changed daily. 2. Metformin 500 mg 2 times a day. Stop 48 hours before surgery. 3. Atenolol 50 mg daily at supper. 4. Lipitor 40 mg daily at bedtime. 5. Divalproex Depakote 500 mg in a.m. and 1000 mg in p.m. 6. Multi Shant once a day. 7. Lisinopril 40 mg daily. 8. Claritin 10 mg daily. 9. Protonix 40 mg daily. 10. Magnesium oxide 250 mg daily. 11. Aspirin 81 mg daily. Stop 10 days before surgery. 12. Cyanocobalamin 1 tablet daily. ALLERGIES None known to medications. SYSTEMS REVIEW She is allergic to no known medications. She has no history of bleeding complications or bleeding diatheses. She has taken no cortisone or prednisone recently. She is diabetic and has well controlled adult-onset diabetes treated with metformin (oral hypoglycemic); metformin stopped 48 hours before procedure. She has never had DVT or pulmonary emboli. She does not have glaucoma or use eye drops. She has no familial history of untoward reaction to anesthesia nor any personal history of untoward reaction to anesthesia. Her previous anesthesia was for hysterectomy, which was uncomplicated in all aspects. She does have hypertension, which is well controlled. She does not having angina, orthopnea, PND, palpitation. She has no current infective symptomatology and she has no respiratory symptomatology. PAST MEDICAL/SURGICAL HISTORY 1. AODM. 2. Dyslipidemia. 3. 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 4. Hypertension. 5. Gastroesophageal reflux. 6. Seasonal allergies. SOCIAL HISTORY She is . She does not use tobacco. She has previously abused alcohol but is currently dry. She takes no other illicit drugs. She has no familial history of untoward reaction to anesthesia. PHYSICAL EXAMINATION VITAL SIGNS: Temperature 36.6, heart rate 60, respiratory rate 16, blood pressure 122/76, O2 saturation room air 97%. BMI 36.72. Sleep apnea score 11.0. HEENT: Pupils are equal, round, reactive. EOMS normal. Sclerae nonicteric. Nares without erythema orcongestion. Mouth without erythema or exudate. She has [place] dentition top and bottom. She is Mallampati grade 2. She can fully flex and extend her neck. The carotid upstrokes are brisk and without bruits. There is no adenopathy or thyromegaly. LUNGS: Clear to auscultation and percussion. Respiratory rate and effort are normal. CARDIAC: CVP is normal. The heart tones are in sinus rhythm without significant murmur or gallop. She tends to bradycardia because of her atenolol. ABDOMEN: Obese, soft, nondistended. No organomegaly. No focal mass or tenderness. EXTREMITIES: Warm, dry and noncyanotic. No clubbing or peripheral edema. NEUROLOGIC: She is alert, oriented, and grossly nonfocal. IMPRESSION/REPORT/PLAN She is ASA class 3 for operation predominantly because of her obsessive compulsive behavior and personality disturbance, which requires Exelon and Depakote for control. Her hypertension is well controlled as is her diabetes and dyslipidemia. The patient has the following instructions. 1. Stop aspirin immediately. (She has already done this). 2. Forty-eight hours prior to surgery, stop metformin. 3. Continue to take all other medicines up through the day of surgery. 4. After midnight on the morning of surgery, she need take no medicines. Simply present to the [facility] with nothing to eat or drink. 5. Listen very carefully to postoperative directions from Dr. Brewer and follow them to the letter. 6. Call promptly for any intercurrent medical illness between now and the time of surgery, particularly an illness with a fever. 7. Any preoperative defects found on laboratory testing today will be corrected prior to surgery. She had a BMP, a CBC, a UA with reflex to culture if indicated and an EKG. Time component 45 minutes. Brandin Kruger M.D./cipriano Electronically Signed By: BRANDIN KRUGER MD On: 07/29/2014 10:03 AM Source: [facility] MHSDOLBEYNONRADSYIndigo Document Id: [id number] documented in this encounter Miscellaneous Notes Miscellaneous - Brandin Krguer M.D. - 07/30/2014 12:58 PM CDT Results Notification Document Contains Addenda Addendum by IRVIN SALINAS LPN on 30 July 2014 13:34:02 CDT called with results From: BRANDIN KRUGER MD Sent: 07/30/2014 12:58:00 CDT ! Show up: 07/30/2014 12:58:00 CDT Subject: Results Notification Actions: Notify patient of results Reminder Comments: No significant growth Results: Date Result Type Ind Result Name MBO Review Culture Urine Source: [facility] POWERCHART Document Id: [id number] Electronically signed by Conversion, [facility] Senior Engineering Tech [id number] at 04/04/2017 5:34 PM CDT Miscellaneous - Brandin Kruger M.D. - 07/29/2014 10:03 AM CDT Results Notification Document Contains Addenda Addendum by IRVIN SALINAS LPN on 30 July 2014 13:34:30 CDT called with results From: BRANDIN KRUGER MD Sent: 07/29/2014 10:03:18 CDT ! Show up: 07/29/2014 10:03:18 CDT Subject: Results Notification Actions: Notify patient of results Reminder Comments: ok Results: Date Result Name Ind Value Ref Range 07/29/2014 09:43 UA Color Yellow 07/29/2014 09:43 UA Clarity (*) Slightly Cloudy 07/29/2014 09:43 UA Spec Grav 1.020 07/29/2014 09:43 UA pH 8.0 07/29/2014 09:43 UA Protein Negative mg/dL 07/29/2014 09:43 UA Glucose Negative mg/dL 07/29/2014 09:43 UA Ketones Negative mg/dL 07/29/2014 09:43 UA Bili Negative 07/29/2014 09:43 UA Urobilinogen 0.2 mg/dL 07/29/2014 09:43 UA Blood Negative 07/29/2014 09:43 UA Nitrite Negative 07/29/2014 09:43 UA Leuk Est (*) Moderate 07/29/2014 08:55 Sodium Lvl 141 mmol/L (135 - 145) 07/29/2014 08:55 Potassium Lvl (H) 4.9 mmol/L (3.5 - 4.8) 07/29/2014 08:55 Chloride (L) 99 mmol/L (100 - 108) 07/29/2014 08:55 CO2 (H) 32 mmol/L (22 - 30) 07/29/2014 08:55 Glucose Fasting 91 mg/dL (70 - 99) 07/29/2014 08:55 Creatinine 0.8 mg/dL (0.7 - 1.2) 07/29/2014 08:55 EGFR (MDRD) >60 mL/min 07/29/2014 08:55 EGFR (MDRD) >60 mL/min 07/29/2014 08:55 BUN (H) 24 mg/dL (6 - 20) 07/29/2014 08:55 Calcium Lvl 9.3 mg/dL (8.5 - 10.5) Source: [facility] POWERCHART Document Id: [id number] Electronically signed by Antonette, [facility] Senior Engineering Tech [id number] at 04/04/2017 5:34 PM CDT Miscellaneous - Brandin Kruger M.D. - 07/29/2014 9:09 AM CDT Results Notification Document Contains Addenda Addendum by IRVIN SALINAS LPN on 30 July 2014 13:34:45 CDT called with results From: BRANDIN KRUGER MD Sent: 07/29/2014 09:09:10 CDT ! Show up: 07/29/2014 09:09:10 CDT Subject: Results Notification Actions: Notify patient of results Reminder Comments: ok Results: Date Result Name Value Ref Range 07/29/2014 08:55 Hgb 13.1 g/dL (12.0 - 15.5) 07/29/2014 08:55 Hct 41.0 % (34.9 - 44.5) 07/29/2014 08:55 WBC 5.0 x10(9)/L (3.4 - 10.5) 07/29/2014 08:55 RBC 4.52 x10(12)/L (3.90 - 5.03) 07/29/2014 08:55 MCV 90.7 fL (82.0 - 98.0) 07/29/2014 08:55 RDW 13.1 % (11.9 - 15.5) 07/29/2014 08:55 Platelet 184 x10(9)/L (150 - 450) 07/29/2014 08:55 Neutro Absolute 2.19 10(9)/L (1.70 - 7.00) 07/29/2014 08:55 Lymph Absolute 1.59 x10(9)/L (0.90 - 2.90) 07/29/2014 08:55 [place] Absolute 0.79 x10(9)/L (0.30 - 0.90) 07/29/2014 08:55 Eos Absolute 0.43 x10(9)/L (0.05 - 0.50) 07/29/2014 08:55 Baso Absolute 0.03 x10(9)/L (0.00 - 0.30) 07/29/2014 08:55 Differential? Auto [facility] Document Id: [id number] Electronically signed by Antonette [facility] Senior Engineering Tech [id number] at 04/04/2017 5:34 PM CDT Miscellaneous - Irvin Salinas L.P.NLori - 07/29/2014 8:33 AM CDT Obstructive Sleep Apnea Obstructive Sleep Apnea Entered On: 07/29/2014 8:34 CDT Performed On: 07/29/2014 8:33 CDT by IRVIN SALINAS LPN RESHMA Screening Known Obstructive Sleep Apnea : No - NOT diagnosed with RESHMA IRVIN SALINAS LPN - 07/29/2014 8:33 CDT RESHMA Assessment Do you have high blood pressure or have you been told to take medication for high blood pressure? : Yes Frequency of Snoring HTN : Occasionally (4-8 times per year) Frequency of Gasping, Choking, Snorting HTN : Never Total Number of Historical Features HTN : 0 Neck Circumference - RESHMA - HTN : 42/43 Total Sleep Apnea Clinical Score HTN Calc : 11 IRVIN SALINAS LPN - 07/29/2014 8:33 CDT [facility] Document Id: [id number] CDT!10 Miscellaneous - Brandin Kruger M.D. - 07/29/2014 8:31 AM CDT Ambulatory Patient Summary [address], [place] [id number] Visit Information Name: FRANCES HAGER [facility] Number: [id number] Current Date: 07/29/2014 08:31:13 Physicians Attending Provider: BRANDIN KRUGER MD Primary [...] hr transdermal film, extended release) 1 patch(es), Transdermal, oncea day Stop Taking the Following Medications: Medication list as of 07-29-14 08:31 Attention: If you have any medications at [...] Electronically Signed By: BRANDIN KRUGER MD Signed On:29-JUL-2014 08:29:27 Your Allergies & Intolerances Substance Reaction Symptoms Category Comments No Known Allergies Your Problem List Problem Status Onset Comments 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 [phone] Ana Gilliam, [address] [place] [address], [place] [address]. All rights reserved. This information is not intended as a substitute for professional medical care. Always follow your healthcare professional's instructions. Your Goals/Additional instructions: This document has images extracted. Please consider using [employer] for all your patient education needs. Source: [facility] POWERCHART Document Id: [id number] Miscellaneous - Brandin Kruger M.D. - 07/29/2014 8:31 AM CDT Ambulatory Discharge Medication List [address] [id number] Visit Information Name: FRANCES HAGER [facility] Number: [id number] Visit Date: 07/29/2014 08:31:10 Attending Provider: BRANDIN KRUGER MD Primary Care [...] hr transdermal film, extended release) 1 patch(es), Transdermal, oncea day Stop Taking the Following Medications: Medication list as of 07-29-14 08:31 Attention: If you have any medications at [...] Electronically Signed By: BRANDIN KRUGER MD Signed On:29-JUL-2014 08:29:27 Additional Information: Source: [facility] POWERCHART Document Id: [id number] Miscellaneous - Irvin Salinas L.PLoriN. - 07/29/2014 8:29 AM CDT Adult Bingo Attendant Intake/History Adult Bingo Attendant Intake/History Entered On: 07/29/2014 8:33 CDT Performed On: 07/29/2014 8:29 CDT by IRVIN SALINAS LPN Intake Chief Complaint : Pre-op Dr Hao Grimes 08/08/14 left rotator cuff [place] Temperature Core : 36.6 DegC(Converted to: 97.9 DegF) Peripheral Pulse Rate : 60 /min Respiratory Rate : 16 /min Heart Rhythm : Regular Systolic Blood Pressure : 122 mmHg Diastolic Blood Pressure : 76 mmHg NIBP Mean : 91 mmHg BP Location : Left upper extremity Blood Pressure Cuff Size : Regular SpO2 : 97 % Oxygen Therapy : Room air Height : 160 cm(Converted to: 5 ft 3 inch(es), 63 inch(es)) Actual Weight : 94 kg(Converted to: 207 lb 4 oz) Weight Source : Standing scale Dosing Weight Clinic : 94 kg Clinic BSA : 2.04 Body Mass Index : 36.72 kg/m2 IRVIN SALINAS RAE MANAGER MOTOR - 07/29/2014 8:29 CDT General Info Information Given By : Patient Languages : Albanian Is Patient Female and 13-50 no hysterectomy : No IRVIN SALINAS RAE MANAGER MOTOR - 07/29/2014 8:29 CDT Subjective Pain Symptoms : No IRVIN SALINAS RAE MANAGER MOTOR - 07/29/2014 8:29 CDT Dependent Habits Tobacco Use/Currently Using : No Exposure to Tobacco Smoke : Other: former smoker Smoking Status : Never smoker Alcohol Use : No SALINASIRVIN FRANCOIS LENNOX MANAGER MOTOR - 07/29/2014 8:29 CDT Caffeine Use Grid Caffeine Use : Current Type : Coffee IRVIN SALINAS RAE MANAGER MOTOR - 07/29/2014 8:29 CDT Recreational Drug Use Grid Drug Use : None IRVIN SALINAS LENNOX MANAGER MOTOR - 07/29/2014 8:29 CDT Source: [employer] Document Id: [id number] CDT!38 documented in this encounter Plan of Treatment Upcoming Encounters Date Type Specialty Care Team Description 09/27/2022 Office Visit Dermatology Marianela Braden M.D. [address] [place], [place] [phone] (Wo rk) documented as of this encounter Procedures Procedure Name Priority Date/Time Associated Diagnosis Comme nts BACTERIAL CULTURE, Routine 07/29/2014 9:51 AM Res ults for this AEROBIC, URINE CDT procedure are in the results section. URINALYSIS, Routine 07/29/2014 9:43 AM Results f or this MIDSTREAM, WITH CDT procedure ar e in CULTURE IF the results INDICATED section. AUTOMATED Routine 07/29/2014 8:55 AM Results f or this DIFFERENTIAL, B CDT procedure ar e in the results section. CBC WITH Routine 07/29/2014 8:55 AM Results f or this DIFFERENTIAL, B CDT procedure ar e in the results section. BASIC METABOLIC Routine 07/29/2014 8:55 AM Result s for this PANEL, S/P CDT procedure are i n the results section. documented in this encounter Results Bacterial Culture, Aerobic, Urine (07/29/2014 9:51 AM CDT) [facility] Method Time Signature Bacterial POWERCHART Culture, Aerobic, Urine HXFinal Mixed alex. No POWERCHART further studies unless notified. [facility] POWERCHART Microbiology laboratory [phone] Specimen Anatomical Collection Method Collection Time Receive d Time (Source) Location / / Volume Laterality Micro Spec 07/29/2014 9:51 AM 4 9:51 CDT AM CDT Brandin Kruger M.D. LAB MICROBIOLOGY - GENERAL O RDERABLES Performing Organization Address City/[facility] Code Phon e Number POWERCHART (ABNORMAL) Urinalysis, Midstream, with culture if indicated (07/29/2014 9:43 AM CDT) [facility] Method Time Signature Source Clean Void POWERCHART Urine HXUr Color Yellow POWERCHART Clarity Slightly POWERCHART Cloudy (A) Glucose Negative MGDL POWERCHART HXBILIRUBIN Negative POWERCHART Ketones, QL(U) Negative MGDL POWERCHART Specific 1.020 POWERCHART [place], POCT, U HXBLOOD Negative POWERCHART pH, POCT, Urine 8.0 POWERCHART Protein, Ur, Dip Negative MGDL POWERCHART Urobilinogen 0.2 MGDL POWERCHART HXNITRITE Negative POWERCHART Leukocyte Moderate (A) POWERCHART Esterase HXUR WBC. 11-20 (A) HPF POWERCHART HXUR RBC. None Seen HPF POWERCHART HXUR Bacteria, Present (A) POWERCHART Specimen (Source) Anatomical Collection Method Collection Time Re ceived Time Location / / Volume Laterality Urine 07/29/2014 9:43 AM CDT Brandin Kruger M.D. LAB URINE ORDERABLES Performing Organization Address City/[facility] Code Phon e Number POWERCHART Automated Differential (07/29/2014 8:55 AM CDT) athologist Signature Absolute 2.19 1.70 - POWERCHART Neutrophils 7.00 109L Lymphocytes 1.59 0.90 - POWERCHART 2.90 X109L Monocytes 0.79 0.30 - POWERCHART 0.90 X109L Eosinophils 0.43 0.05 - POWERCHART 0.50 X109L Absolute 0.03 0.00 - POWERCHART Basophil 0.30 X109L Specimen Anatomical Collection Method Collection Time Receive d Time (Source) Location / / Volume Laterality Blood 07/29/2014 8:55 AM 4 8:55 CDT AM CDT Brandin Kruger M.D. LAB BLOOD ADD-ON Performing Organization Address City/State/ZIP Code Phon e Number POWERCHART CBC with Differential (07/29/2014 8:55 AM CDT) P athologist Signature Leukocytes 5.0 3.4 - 10.5 POWERCHART X109L Erythrocytes 4.52 3.90 - POWERCHART 5.03 [id number] Hemoglobin 13.1 12.0 - POWERCHART 15.5 GDL Hematocrit 41.0 34.9 - POWERCHART 44.5 MCV 90.7 82.0 - POWERCHART 98.0 [place] Platelet Count 184 150 - 450 POWERCHART X109L HX RDW 13.1 11.9 - POWERCHART 15.5 HXDifferential? Auto POWERCHART Specimen (Source) Anatomical Collection Method Collection Time Re ceived Time Location / / Volume Laterality Blood 07/29/2014 8:55 AM CDT Brandin Kruger M.D. LAB BLOOD ADD-ON Performing Organization Address City/State/[facility] Code Phon e Number POWERCHART (ABNORMAL) BMP (Basic Metabolic Panel) (07/29/2014 8:55 AM CDT) P athologist Signature BUN (Blood Urea 24 (H) 6 - 20 POWERCHART Nitrogen), S MGDL Creatinine 0.8 0.7 - 1.2 POWERCHART MGDL Potassium, S 4.9 (H) 3.5 - 4.8 POWERCHART MMOLL Sodium, S 141 135 - 145 POWERCHART MMOLL Chloride, S 99 (L) 100 - 108 POWERCHART MMOLL CO2 Total 32 (H) 22 - 30 POWERCHART MMOLL Calcium, Total, 9.3 8.5 - 10.5 POWERCHART S MGDL HXeGFR (MDRD) >60 MLMIN POWERCHART eGFR >60 MLMIN POWERCHART Black/ Glucose, 91 70 - 99 POWERCHART Fasting, S MGDL Specimen (Source) Anatomical Collection Method Collection Time Re ceived Time Location / / Volume Laterality Blood 07/29/2014 8:55 AM CDT Brandin Kruger M.D. LAB BLOOD ADD-ON Performing Organization Address City/State/ZIP Code Phon e Number POWERCHART documented in this encounter Visit Diagnoses Not on filedocumented in this encounter Additional Health Concerns Assessment Noted Time PHQ-9 Depression Total Score: 3 05/05/2014 7:55 AM CDT documented as of this encounter
--- OUTSIDE RECORDS SUMMARY | 2022-08-14 22:59 | XMS_ITS | Encounter Summary ---
:1945 Author Organization [facility] Address [address] [place] [address] Care Team Providers Name Role Phone Unavailable Primary Care Provider Unavailable Encounter Details Date Type Department Care Team Description 04/25/2013 Hospital Encounter HX NO MAPPING Ulysses Rivas M. D. Social History Tobacco Use Types Packs/Day Years Used Date Smoking Tobacco: Never Assessed Sex Assigned at Date Recorded Not on file documented as of this encounter Plan of Treatment Upcoming Encounters Date Type Specialty Care Team Description 09/27/2022 Office Visit Dermatology Marianela Braden M.D. [address] [place], [place] [phone] (Wo rk) documented as of this encounter Procedures Procedure Name Priority Date/Time Associated Diagnosis Comme nts SURGICAL PATHOLOGY Routine 04/25/2013 12:00 AM Re sults for this CDT procedure are i n the results section. documented in this encounter Results Pathology Surgical Pathology (04/25/2013 12:00 AM CDT) Specimen (Source) Anatomical Location Collection Method / Collectio n Time Received Time / Laterality Volume 04/25/2013 Narrative [facility] - 05/13/20 13 8:49 AM CDT PATIENT IMAGES Choose the Image button to view related documents. Historical Provider LAB SURG PATH ORDERABLES Performing Organization Address City/State/ZIP Code [facility] e Number [facility] documented in this encounter Visit Diagnoses Not on filedocumented in this encounter
--- OUTSIDE RECORDS SUMMARY | 2022-08-14 22:59 | XMS_ITS | Encounter Summary ---
:1945 Author Organization [facility] Address [address] [place] [address] Care Team Providers Name Role Phone Unavailable Primary Care Provider Unavailable Encounter Details Date Type Department Care Team Description 10/08/2014 Hospital Encounter HX NO MAPPING Fabricio Kruger M.D. [address] [place] [phone] (Wo yajaira) Social History Tobacco [...] Visit Dermatology Marianela Braden M.D. [address] [place], [place] [phone] (Wo rk) documented as of this encounter Visit Diagnoses Not on filedocumented in this encounter Additional Health Concerns Assessment Noted Time PHQ-9 Depression Total Score: 3 05/05/2014 7:55 AM CDT documented as of this encounter
--- OUTSIDE RECORDS SUMMARY | 2022-08-14 22:59 | XMS_ITS | Encounter Summary ---
:1945 Author Organization [facility] Address [address] [place] [address] Care Team Providers Name Role Phone Unavailable Primary Care Provider Unavailable Encounter Details Date Type Department Care Team Description 04/16/2014 - Hospital Encounter HX RST [facility], 04/23/2014 ADDICTIONS Zander Samson M.D., M.S. [address] [place] [phone] Social History Tobacco Use Types Packs/Day Years [...] Office Visit Dermatology Marianela Braden M.D. [address] [place] [phone] (Wo rk) documented as of this encounter Visit Diagnoses Not on filedocumented in this encounter Additional Health Concerns Assessment Noted Time PHQ-9 Depression Total Score: 3 04/07/2014 12:09 PM CD T documented as of this encounter
--- NOTE | 2022-08-14 23:06 | ED.GENADULT ---
HPI - General Adult General Time Seen by Provider: 23:06 <Brooks Klein MD - Last Filed: 08/16/22 12:43> Date Seen: 08/14/22 <Brooks Klein MD - Last Filed: 08/16/22 12:43> Chief complaint: Fall/Minor Trauma <Brooks Klein MD - Last Filed: 08/16/22 12:43> Stated complaint: Fall <Brooks Klein MD - Last Filed: 08/16/22 12:43> Time Seen by Provider: 08/14/22 23:06 <Brooks Klein MD - Last Filed: 08/16/22 12:43> Source: patient <Brooks Klein MD - Last Filed: 08/16/22 12:43> Mode of arrival: EMS <Brooks Klein MD - Last Filed: 08/16/22 12:43> Limitations: altered mental status <Brooks Klein MD - Last Filed: 08/16/22 12:43> History of Present Illness HPI narrative: Patient is a 76 year white female who presents after a fall. Her called and stated that he heard a thud, she has a swollen nose but denies any pain or discomfort. There was some concern that alcohol is involved as well. Patient denies any neck pain, headache, recent illness, chest pain, neurologic complaint. Trauma team activation was called patient denied remembering what happened, she is not sure how she fell. Not sure if she tripped or passed out. At this point she is awake alert oriented x3, does seem somnolent times area <Brooks Klein MD - Last Filed: 08/16/22 12:43> Related Data Home medications: Home Medications Medication Instructions Recorded Confirmed amlodipine 2.5 mg tablet mg 08/14/22 atorvastatin 40 mg tablet mg 08/14/22 blood sugar diagnostic (OneTouch 08/14/22 08/14/22 Verio test strips) dulaglutide 1.5 mg/0.5 mL mg subcut 08/14/22 subcutaneous pen injector ([facility]) fluvoxamine 100 mg tablet mg 08/14/22 metformin 500 mg tablet,extended mg PO 08/14/22 release 24 hr metoprolol succinate 50 mg mg PO 08/14/22 tablet,extended release 24 hr torsemide 20 mg tablet mg 08/14/22 <Brooks Klein MD - Last Filed: 08/16/22 12:43> Allergies/adverse reactions: Allergies Allergy/AdvReac Type Severity Reaction Status Date / Time No Known Drug Allergies Allergy Verified 08/14/22 22:50 <Brooks Klein MD - Last Filed: 08/16/22 12:43> Review of Systems Status of ROS: Reports: 6 or more systems reviewed and unremarkable except as noted in History and below <Brooks Klein MD - Last Filed: 08/16/22 12:43> [facility] Medical History: Medical History (Updated 08/15/22 @ 01:41 by Corinne Singh MD) Adenomatous colon polyp Anxiety disorder, unspecified Essential (primary) hypertension Gait instability Heart failure, unspecified Hoarding disorder Hyponatremia Iron deficiency anemia, unspecified Obsessive-compulsive disorder, unspecified Sleep apnea, unspecified Syncope and collapse Type 2 diabetes mellitus without complications Unspecified mood [affective] disorder Varicose veins of right lower extremity with inflammation Vertigo Vitamin B deficiency, unspecified <Brooks Klein MD - Last Filed: 08/16/22 12:43> Social History: Social History Smoking Status: Never smoker How often do you have a drink containing alcohol: monthly or less AUDIT-C Alcohol total score: 1 Non-prescribed substance use: denies use <Brooks Klein MD - Last Filed: 08/16/22 12:43> Exam Narrative: Exam Narrative: Primary survey: Airway breathing circulation disability are unremarkable Secondary survey: HEENT shows swollen nasal bridge and blood in the nostrils no fever, no facial asymmetry, no palpable neck pain in the midline Chest back abdomen unremarkable pelvis stable Extremities she has got bruising on the left knee, but full range of motion, no pain with internal external rotation of her hips Neurologic is nonfocal Skin exam is for the most part unremarkable other than bruising over her left knee, neurologic is nonfocal in upper lower extremity Patient denies any back pain and palpation of her back shows no tenderness her <Brooks Klein MD - Last Filed: 08/16/22 12:43> Const: Vital Signs, click to edit/add: Vital Signs - 24 hr 08/14/22 22:47 08/14/22 23:12 08/15/22 00:00 Temperature 97.8 F Pulse Rate [Left P ulse Oximeter] 91 77 Respiratory Rate 16 16 Blood Pressure [Le ft Upper Arm] 134/73 127/64 Pulse Oximetry 93 98 91 Oxygen Delivery Me thod Room Air Room Air 08/15/22 01:00 Temperature Pulse Rate [Left P ulse Oximeter] 76 Respiratory Rate 16 Blood Pressure [Le ft Upper Arm] 131/73 Pulse Oximetry 93 Oxygen Delivery Me thod Room Air <Brooks Klein MD - Last Filed: 08/16/22 12:43> Vital Signs, click to edit/add: Vital Signs - 24 hr 08/14/22 22:47 08/14/22 23:12 08/15/22 00:00 Temperature 97.8 F Pulse Rate [Left P ulse Oximeter] 91 77 Respiratory Rate 16 16 Blood Pressure [Le ft Upper Arm] 134/73 127/64 Pulse Oximetry 93 98 91 Oxygen Delivery Me thod Room Air Room Air 08/15/22 01:00 Temperature Pulse Rate [Left P ulse Oximeter] 76 Respiratory Rate 16 Blood Pressure [Le ft Upper Arm] 131/73 Pulse Oximetry 93 Oxygen Delivery Me thod Room Air <Corinne Singh MD - Last Filed: 08/15/22 01:41> Course Vital Signs Vital signs: Initial Vital Signs Temperature 97.8 F 08/14/22 22:47 Temperature Source Temporal Artery Scan 08/14/22 22:47 Pulse Rate 91 08/14/22 22:47 Pulse Rhythm 08/14/22 22:47 Respiratory Rate 16 08/14/22 22:47 Blood Pressure 134/73 08/14/22 22:47 Blood Pressure Mean 93 08/14/22 22:47 Blood Pressure Position Sitting 08/14/22 22:47 Pulse Oximetry 93 08/14/22 22:47 Oxygen Delivery Method 08/14/22 22:47 Vital Signs Temperature 97.8 F 08/14/22 22:47 Pulse Rate 91 08/14/22 22:47 Respiratory Rate 16 08/14/22 22:47 Blood Pressure 134/73 08/14/22 22:47 Pulse Oximetry 93 08/14/22 22:47 Oxygen Delivery Method 08/14/22 22:47 Temperature 97.8 F 08/14/22 22:47 Pulse Rate 76 08/15/22 01:00 Respiratory Rate 16 08/15/22 01:00 Blood Pressure 131/73 08/15/22 01:00 Pulse Oximetry 93 08/15/22 01:00 Oxygen Delivery Method 08/15/22 01:00 <Brooks Klein MD - Last Filed: 08/16/22 12:43> Initial Vital Signs Temperature 97.8 F 08/14/22 22:47 Temperature Source Temporal Artery Scan 08/14/22 22:47 Pulse Rate 91 08/14/22 22:47 Pulse Rhythm 08/14/22 22:47 Respiratory Rate 16 08/14/22 22:47 Blood Pressure 134/73 08/14/22 22:47 Blood Pressure Mean 93 08/14/22 22:47 Blood Pressure Position Sitting 08/14/22 22:47 Pulse Oximetry 93 08/14/22 22:47 Oxygen Delivery Method 08/14/22 22:47 Vital Signs Temperature 97.8 F 08/14/22 22:47 Pulse Rate 91 08/14/22 22:47 Respiratory Rate 16 08/14/22 22:47 Blood Pressure 134/73 08/14/22 22:47 Pulse Oximetry 93 08/14/22 22:47 Oxygen Delivery Method 08/14/22 22:47 Temperature 97.8 F 08/14/22 22:47 Pulse Rate 76 08/15/22 01:00 Respiratory Rate 16 08/15/22 01:00 Blood Pressure 131/73 08/15/22 01:00 Pulse Oximetry 93 08/15/22 01:00 Oxygen Delivery Method 08/15/22 01:00 <Corinne Singh MD - Last Filed: 08/15/22 01:41> Medical Decision Making MDM Narrative Medical decision making narrative: Patient had an unwitnessed fall, with nasal injury, nasal bleeding will check CT scan of head maxillofacial, neck. Will also get a pelvis x-ray, EKG, laboratory studies including troponin, alcohol level, IV fluid will be given Addendum: The patient's alcohol level is 0.23, her lab studies otherwise are fairly unremarkable her CRP is negative is 15 10 slow slight and time acetaminophen are negative troponin is 0.03 lactate was 4.5 likely due to her elevated alcohol level. Dr. Carey kindly will assume care and follow through on the CT scan results and lab studies, 2nd troponin was ordered as well <Brooks Klein MD - Last Filed: 08/16/22 12:43> Patient had an unwitnessed fall, with nasal injury, nasal bleeding will check CT scan of head maxillofacial, neck. Will also get a pelvis x-ray, EKG, laboratory studies including troponin, alcohol level, IV fluid will be given Addendum: The patient's alcohol level is 0.23, her lab studies otherwise are fairly unremarkable her CRP is negative is 15 10 slow slight and time acetaminophen are negative troponin is 0.03 lactate was 4.5 likely due to her elevated alcohol level. Dr. Aurelio macdonald will assume care and follow through on the CT scan results and lab studies, 2nd troponin was ordered as well update 1:30 a.m.: Patient ambulated to the bathroom, steady on her feet. She notes no headache. She says that she is a bit unsteady on her feet but attributes this to her vertigo, Stating this is long-term for her and her agrees. They agree that she is at her baseline. She and I discussed her drinking, the seemed appreciative of me bring this up and setting appropriate parameters which will be included in her discharge instructions as well. ENT referral placed, but okay to cancel if she is feeling fine in a couple of weeks. Labs reviewed, imaging studies reviewed. CT of the head not showing any signs of bleeds. Suspect that the TMJ cartilage changes are normal as she is able to open and close her jaw without difficulty. Discussed the remainder of the findings with the family prior to discharge. <Corinne Singh MD - Last Filed: 08/15/22 01:41> Lab Data Lab results reviewed: Yes I reviewed the patient's lab results <Corinne Singh MD - Last Filed: 08/15/22 01:41> Labs: Lab Results 08/14/22 08/14/22 08/14/22 Range/Units 23:05 23:05 23:05 WBC 5.58 (4.50-11.00) K/uL RBC 4.16 (4.00-5.20) m/uL Hgb 12.2 (12.0-16.0) gm/dL Hct 38.3 (33.0-51.0) % MCV 92 (80-100) fL MCH 29 (26-34) pg MCHC 32 (32-36) gm/dL RDW Coeff of Dez 13.9 (11.5-15.5) % Plt Count 180 (140-440) K/uL Neut % (Auto) 61.7 (42.0-72.0) % Lymph % (Auto) 20.6 (20-44) % Chambers % (Auto) 13.8 H (0.0-11.0) % Eos % (Auto) 3.0 (0.0-7.0) % Baso % (Auto) 0.4 (0.0-3.0) % Neut # (Auto) 3.44 (1.7-7.0) K/uL Lymph # (Auto) 1.15 (0.90-2.90) K/uL Chambers # (Auto) 0.80 (0.00-0.90) K/UL Eos # (Auto) 0.17 (0.00-0.50) K/uL Baso # (Auto) 0.02 (0.00-0.30) K/uL Abs Immat Gran (auto) 0.03 (0.00-0.30) K/uL INR 0.97 (0.91-1.10) Sodium 133 L (135-149) mmol/L Potassium 4.1 (3.6-5.1) mmol/L Chloride 95 L (96-114) mmol/L Carbon Dioxide 22 (20-32) mmol/L BUN 26 (7-30) mg/dL Creatinine 1.1 (0.5-1.5) mg/dL Estimated Creat Clear 35.99 Estimated GFR 52 ml/min Glucose 127 H (60-115) mg/dL Lactate (0.5-1.9) mmol/L Calcium 8.8 (8.4-10.6) mg/dL Total Bilirubin 0.1 (0.1-1.5) mg/dL Direct Bilirubin 0.0 (0.0-0.5) mg/dL AST 42 H (12-35) U/L ALT 39 H (4-35) U/L Alkaline Phosphatase 111 (40-150) U/L Troponin I (0.01-0.04) ng/mL C-Reactive Protein < 0.5 L (0.5-1.0) mg/dL NT-Pro-B Natriuret Pep 1510 H (0-450) PG/mL Total Protein 6.7 (6.0-8.3) g/dL Albumin 4.3 (3.3-5.0) g/dL Amylase 86 (18-89) U/L Salicylates < 1.0 L (1.0-10) mg/dL Acetaminophen < 10.0 L (10.0-30.0) ug/mL Ethyl Alcohol 0.23 H (0.01-0.03) % SARS-CoV-2 (PCR) (Negative) 08/14/22 08/14/22 08/15/22 Range/Units 23:05 23:05 00:30 WBC (4.50-11.00) K/uL RBC (4.00-5.20) m/uL Hgb (12.0-16.0) gm/dL Hct (33.0-51.0) % MCV (80-100) fL MCH (26-34) pg MCHC (32-36) gm/dL RDW Coeff of Dez (11.5-15.5) % Plt Count (140-440) K/uL Neut % (Auto) (42.0-72.0) % Lymph % (Auto) (20-44) % Chambers % (Auto) (0.0-11.0) % Eos % (Auto) (0.0-7.0) % Baso % (Auto) (0.0-3.0) % Neut # (Auto) (1.7-7.0) K/uL Lymph # (Auto) (0.90-2.90) K/uL Chambers # (Auto) (0.00-0.90) K/UL Eos # (Auto) (0.00-0.50) K/uL Baso # (Auto) (0.00-0.30) K/uL Abs Immat Gran (auto) (0.00-0.30) K/uL INR (0.91-1.10) Sodium (135-149) mmol/L Potassium (3.6-5.1) mmol/L Chloride (96-114) mmol/L Carbon Dioxide (20-32) mmol/L BUN (7-30) mg/dL Creatinine (0.5-1.5) mg/dL Estimated Creat Clear Estimated GFR ml/min Glucose (60-115) mg/dL Lactate 4.5 H* (0.5-1.9) mmol/L Calcium (8.4-10.6) mg/dL Total Bilirubin (0.1-1.5) mg/dL Direct Bilirubin (0.0-0.5) mg/dL AST (12-35) U/L ALT (4-35) U/L Alkaline Phosphatase (40-150) U/L Troponin I 0.03 (0.01-0.04) ng/mL C-Reactive Protein (0.5-1.0) mg/dL NT-Pro-B Natriuret Pep (0-450) PG/mL Total Protein (6.0-8.3) g/dL Albumin (3.3-5.0) g/dL Amylase (18-89) U/L Salicylates (1.0-10) mg/dL Acetaminophen (10.0-30.0) ug/mL Ethyl Alcohol (0.01-0.03) % SARS-CoV-2 (PCR) Negative SARS-CoV-2 (Negative) 08/15/22 Range/Units 00:50 WBC (4.50-11.00) K/uL RBC (4.00-5.20) m/uL Hgb (12.0-16.0) gm/dL Hct (33.0-51.0) % MCV (80-100) fL MCH (26-34) pg MCHC (32-36) gm/dL RDW Coeff of Dez (11.5-15.5) % Plt Count (140-440) K/uL Neut % (Auto) (42.0-72.0) % Lymph % (Auto) (20-44) % Chambers % (Auto) (0.0-11.0) % Eos % (Auto) (0.0-7.0) % Baso % (Auto) (0.0-3.0) % Neut # (Auto) (1.7-7.0) K/uL Lymph # (Auto) (0.90-2.90) K/uL Chambers # (Auto) (0.00-0.90) K/UL Eos # (Auto) (0.00-0.50) K/uL Baso # (Auto) (0.00-0.30) K/uL Abs Immat Gran (auto) (0.00-0.30) K/uL INR (0.91-1.10) Sodium (135-149) mmol/L Potassium (3.6-5.1) mmol/L Chloride (96-114) mmol/L Carbon Dioxide (20-32) mmol/L BUN (7-30) mg/dL Creatinine (0.5-1.5) mg/dL Estimated Creat Clear Estimated GFR ml/min Glucose (60-115) mg/dL Lactate (0.5-1.9) mmol/L Calcium (8.4-10.6) mg/dL Total Bilirubin (0.1-1.5) mg/dL Direct Bilirubin (0.0-0.5) mg/dL AST (12-35) U/L ALT (4-35) U/L Alkaline Phosphatase (40-150) U/L Troponin I 0.03 (0.01-0.04) ng/mL C-Reactive Protein (0.5-1.0) mg/dL NT-Pro-B Natriuret Pep (0-450) PG/mL Total Protein (6.0-8.3) g/dL Albumin (3.3-5.0) g/dL Amylase (18-89) U/L Salicylates (1.0-10) mg/dL Acetaminophen (10.0-30.0) ug/mL Ethyl Alcohol (0.01-0.03) % SARS-CoV-2 (PCR) (Negative) <Brooks Klein MD - Last Filed: 08/16/22 12:43> Lab Results 08/14/22 08/14/22 08/14/22 Range/Units 23:05 23:05 23:05 WBC 5.58 (4.50-11.00) K/uL RBC 4.16 (4.00-5.20) m/uL Hgb 12.2 (12.0-16.0) gm/dL Hct 38.3 (33.0-51.0) % MCV 92 (80-100) fL MCH 29 (26-34) pg MCHC 32 (32-36) gm/dL RDW Coeff of Dez 13.9 (11.5-15.5) % Plt Count 180 (140-440) K/uL Neut % (Auto) 61.7 (42.0-72.0) % Lymph % (Auto) 20.6 (20-44) % Chambers % (Auto) 13.8 H (0.0-11.0) % Eos % (Auto) 3.0 (0.0-7.0) % Baso % (Auto) 0.4 (0.0-3.0) % Neut # (Auto) 3.44 (1.7-7.0) K/uL Lymph # (Auto) 1.15 (0.90-2.90) K/uL Chambers # (Auto) 0.80 (0.00-0.90) K/UL Eos # (Auto) 0.17 (0.00-0.50) K/uL Baso # (Auto) 0.02 (0.00-0.30) K/uL Abs Immat Gran (auto) 0.03 (0.00-0.30) K/uL INR 0.97 (0.91-1.10) Sodium 133 L (135-149) mmol/L Potassium 4.1 (3.6-5.1) mmol/L Chloride 95 L (96-114) mmol/L Carbon Dioxide 22 (20-32) mmol/L BUN 26 (7-30) mg/dL Creatinine 1.1 (0.5-1.5) mg/dL Estimated Creat Clear 35.99 Estimated GFR 52 ml/min Glucose 127 H (60-115) mg/dL Lactate (0.5-1.9) mmol/L Calcium 8.8 (8.4-10.6) mg/dL Total Bilirubin 0.1 (0.1-1.5) mg/dL Direct Bilirubin 0.0 (0.0-0.5) mg/dL AST 42 H (12-35) U/L ALT 39 H (4-35) U/L Alkaline Phosphatase 111 (40-150) U/L Troponin I (0.01-0.04) ng/mL C-Reactive Protein < 0.5 L (0.5-1.0) mg/dL NT-Pro-B Natriuret Pep 1510 H (0-450) PG/mL Total Protein 6.7 (6.0-8.3) g/dL Albumin 4.3 (3.3-5.0) g/dL Amylase 86 (18-89) U/L Salicylates < 1.0 L (1.0-10) mg/dL Acetaminophen < 10.0 L (10.0-30.0) ug/mL Ethyl Alcohol 0.23 H (0.01-0.03) % SARS-CoV-2 (PCR) (Negative) 08/14/22 08/14/22 08/15/22 Range/Units 23:05 23:05 00:30 WBC (4.50-11.00) K/uL RBC (4.00-5.20) m/uL Hgb (12.0-16.0) gm/dL Hct (33.0-51.0) % MCV (80-100) fL MCH (26-34) pg MCHC (32-36) gm/dL RDW Coeff of Dez (11.5-15.5) % Plt Count (140-440) K/uL Neut % (Auto) (42.0-72.0) % Lymph % (Auto) (20-44) % Chambers % (Auto) (0.0-11.0) % Eos % (Auto) (0.0-7.0) % Baso % (Auto) (0.0-3.0) % Neut # (Auto) (1.7-7.0) K/uL Lymph # (Auto) (0.90-2.90) K/uL Chambers # (Auto) (0.00-0.90) K/UL Eos # (Auto) (0.00-0.50) K/uL Baso # (Auto) (0.00-0.30) K/uL Abs Immat Gran (auto) (0.00-0.30) K/uL INR (0.91-1.10) Sodium (135-149) mmol/L Potassium (3.6-5.1) mmol/L Chloride (96-114) mmol/L Carbon Dioxide (20-32) mmol/L BUN (7-30) mg/dL Creatinine (0.5-1.5) mg/dL Estimated Creat Clear Estimated GFR ml/min Glucose (60-115) mg/dL Lactate 4.5 H* (0.5-1.9) mmol/L Calcium (8.4-10.6) mg/dL Total Bilirubin (0.1-1.5) mg/dL Direct Bilirubin (0.0-0.5) mg/dL AST (12-35) U/L ALT (4-35) U/L Alkaline Phosphatase (40-150) U/L Troponin I 0.03 (0.01-0.04) ng/mL C-Reactive Protein (0.5-1.0) mg/dL NT-Pro-B Natriuret Pep (0-450) PG/mL Total Protein (6.0-8.3) g/dL Albumin (3.3-5.0) g/dL Amylase (18-89) U/L Salicylates (1.0-10) mg/dL Acetaminophen (10.0-30.0) ug/mL Ethyl Alcohol (0.01-0.03) % SARS-CoV-2 (PCR) Negative SARS-CoV-2 (Negative) 08/15/22 Range/Units 00:50 WBC (4.50-11.00) K/uL RBC (4.00-5.20) m/uL Hgb (12.0-16.0) gm/dL Hct (33.0-51.0) % MCV (80-100) fL MCH (26-34) pg MCHC (32-36) gm/dL RDW Coeff of Dez (11.5-15.5) % Plt Count (140-440) K/uL Neut % (Auto) (42.0-72.0) % Lymph % (Auto) (20-44) % Chambers % (Auto) (0.0-11.0) % Eos % (Auto) (0.0-7.0) % Baso % (Auto) (0.0-3.0) % Neut # (Auto) (1.7-7.0) K/uL Lymph # (Auto) (0.90-2.90) K/uL Chambers # (Auto) (0.00-0.90) K/UL Eos # (Auto) (0.00-0.50) K/uL Baso # (Auto) (0.00-0.30) K/uL Abs Immat Gran (auto) (0.00-0.30) K/uL INR (0.91-1.10) Sodium (135-149) mmol/L Potassium (3.6-5.1) mmol/L Chloride (96-114) mmol/L Carbon Dioxide (20-32) mmol/L BUN (7-30) mg/dL Creatinine (0.5-1.5) mg/dL Estimated Creat Clear Estimated GFR ml/min Glucose (60-115) mg/dL Lactate (0.5-1.9) mmol/L Calcium (8.4-10.6) mg/dL Total Bilirubin (0.1-1.5) mg/dL Direct Bilirubin (0.0-0.5) mg/dL AST (12-35) U/L ALT (4-35) U/L Alkaline Phosphatase (40-150) U/L Troponin I 0.03 (0.01-0.04) ng/mL C-Reactive Protein (0.5-1.0) mg/dL NT-Pro-B Natriuret Pep (0-450) PG/mL Total Protein (6.0-8.3) g/dL Albumin (3.3-5.0) g/dL Amylase (18-89) U/L Salicylates (1.0-10) mg/dL Acetaminophen (10.0-30.0) ug/mL Ethyl Alcohol (0.01-0.03) % SARS-CoV-2 (PCR) (Negative) <Corinne Singh MD - Last Filed: 08/15/22 01:41> Discharge Plan Discharge Clinical Impression: Fracture closed, nasal bone, Facial trauma, Fall, Alcohol intoxication <Brooks Klein MD - Last Filed: 08/16/22 12:43> Patient Disposition: Home w/ Parent or Adult <Brooks Klein MD - Last Filed: 08/16/22 12:43> Condition: Improved <Brooks Klein MD - Last Filed: 08/16/22 12:43> Instructions: Nasal Fracture (ED) <Brooks Klein MD - Last Filed: 08/16/22 12:43> Additional Instructions: there were no signs of problems with your heart, electrolytes, or any signs of infections today. As we discussed, your alcohol level was 3 times the legal limit. I think this was the main contributing factor to your fall. Based on our discussion, I would recommend that you limit your alcohol to no more than 1 drink per day and you consider cutting year drinking down to only 3 days per week but again only 1 drink per 24 hours. Your going to have a headache 10 year vertigo will be worse for the next few days because of your fall. He will have aches and pains in new areas from the fall as well. Do not put anything into your nose such as nasal sprays, swabs or other similar devices for the next couple of weeks. You will likely have significant bruising under your eyes. It is okay to take Tylenol as needed for headache and discomfort. I will place a referral for you to see Dr. Cuevas for your nasal fracture but feel free to cancel this appointment if things are feeling well. <Brooks Klein MD - Last Filed: 08/16/22 12:43> Discharge Diet: Regular <Brooks Klein MD - Last Filed: 08/16/22 12:43> Regular <Corinne Singh MD - Last Filed: 08/15/22 01:41> Prescriptions: No Action atorvastatin 40 mg tablet Label Comments: TAKE ONE TABLET BY MOUTH ONE TIME DAILY AT BEDTIME torsemide 20 mg tablet Label Comments: TAKE TWO TABLETS BY MOUTH DAILY metoprolol succinate 50 mg tablet extended release 24 hr PO Label Comments: TAKE ONE TABLET BY MOUTH ONE TIME DAILY amlodipine 2.5 mg tablet Label Comments: TAKE ONE TABLET BY MOUTH ONE TIME DAILY (DME) OneTouch Verio test strips Strip MISCELLANEOUS Label Comments: USE TO TEST BLOOD SUGARS TWICE DAILY fluvoxamine 100 mg tablet Label Comments: TAKE ONE TABLET BY MOUTH TWICE DAILY metformin 500 mg tablet extended release 24 hr PO Label Comments: Take 4 Tablets by mouth once daily with evening meal. Trulicity 1.5 mg/0.5 mL pen injector SUBCUT Label Comments: Inject 1.5mg (contents of 1 pen) by subcutaneous route once weekly. <Brooks Klein MD - Last Filed: 08/16/22 12:43> Follow Up/Referrals: Ashutosh Gonzales MD [Primary Care Provider] - Dhaval Cuevas MD [Staff Physician] - ( nasal fracture. Follow up in 2 weeks. Patient may cancel if feeling well) <Brooks Klein MD - Last Filed: 08/16/22 12:43> Stand Alone Forms: My[facility] Info Instructions <Brooks Klein MD - Last Filed: 08/16/22 12:43>
[2022-08-14 23:12] VITALS: O2SAT 98
--- NOTE | 2022-08-14 23:12 | CRLHL7_ITS ---
For Patients: As a result of the Century Cures Act, medical imaging exams and procedure reports are released immediately into your electronic medical record. You may view this report before your referring provider. If you have questions, please contact your health care provider. INDICATION: Status post fall. COMPARISON: CT of the head from 06/28/2017 TECHNIQUE: CT examination of the head was performed with 3 mm thick axial and 2 mm thick coronal and sagittal sections without intravenous contrast. Images were obtained from the vertex of the skull through the skull base, and I examined the images with the brain and bone windows. Please note that all CT scans at this facility use dose modulation, iterative reconstruction, and/or weight-based dosing when appropriate to reduce radiation dose to as low as reasonably achievable. FINDINGS: There is new acute, nondisplaced fracture of the midportion of the nasal bones bilaterally with mild bilateral nasal swelling. There is stable moderate dilatation of the ventricles and sulci representing age-appropriate atrophy. There is increased periventricular and subcortical white matter hypodensity, now moderate, representing progression of age-appropriate small vessel ischemia. The brain is otherwise normal in appearance for the patient`s age on today`s study, with no sign of mass lesion, mass effect, hemorrhage, or edema. The visualized portions of the orbits are normal in appearance. There is mild bubbly fluid in the left maxillary sinus from mild chronic sinusitis. This is prominently improved compared to the previous study where the left maxillary sinus was completely opacified. The rest of the visualized paranasal sinuses and mastoids are clear. The osseous structures are normal in their appearance with no sign of abnormality in the skull base or calvarium. IMPRESSION: Acute bilateral common nondisplaced nasal fractures. No sign of closed head injury. Stable moderate, age-appropriate atrophy. Progression of small vessel ischemic change, now moderate, consistent with patient age. Improved left maxillary sinusitis, now with mild chronic sinusitis. Please note that all CT scans at this facility use dose modulation, iterative reconstruction, and/or weight-based dosing when appropriate to reduce radiation dose to as low as reasonably achievable. Dictated by Naman Santiago MD @ 08/15/2022 1:14:06 AM (Electronically Signed)
--- NOTE | 2022-08-14 23:12 | CRLHL7_ITS ---
For Patients: As a result of the Century Cures Act, medical imaging exams and procedure reports are released immediately into your electronic medical record. You may view this report before your referring provider. If you have questions, please contact your health care provider. INDICATION: Fall TECHNIQUE: CT cervical spine without contrast. COMPARISON: None FINDINGS: Vertebrae: Straightening of the normal lordosis without facet malalignment there are no fractures or suspicious bony lesions. Discs and facet joints: Multi-level discogenic spurring throughout the mid and lower cervical spine with near complete bridging osteophyte formation. Multifocal areas of facet arthropathy. Extraspinal findings: Prevertebral soft tissues, visualized airway, and visualized lungs are unremarkable. IMPRESSION: No cervical spine fracture. Please note that all CT scans at this facility use dose modulation, iterative reconstruction, and/or weight-based dosing when appropriate to reduce radiation dose to as low as reasonably achievable. Dictated by Naren Doshi MD @ 08/16/2022 9:31:22 AM (Electronically Signed)
--- NOTE | 2022-08-14 23:12 | CRLHL7_ITS ---
For Patients: As a result of the Century Cures Act, medical imaging exams and procedure reports are released immediately into your electronic medical record. You may view this report before your referring provider. If you have questions, please contact your health care provider. INDICATION: Pain after fall COMPARISON: None available TECHNIQUE: CT examination of the facial bones is performed without contrast enhancement using spiral technique. 2 mm thick axial, coronal and sagittal sections were obtained from the data. Please note that all CT scans at this facility use dose modulation, iterative reconstruction, and/or weight-based dosing when appropriate to reduce radiation dose to as low as reasonably achievable. FINDINGS: There are acute, nondisplaced fractures of the mid portions of the nasal bones bilaterally. There is mild diffuse soft tissue swelling of the nose. There is no sign of fracture of the nasal septum or maxillary spine. There is no sign of facial fracture on today`s study. The orbits, zygomatic arches, maxillae, and mandible are normal in appearance. There is anterior translation of both mandibular condyles in relationship to the condylar fossa, suggesting posterior dislocation of the TMJ menisci. The entire mandible appears to be thrust anteriorly in relationship to the maxilla appear recommend correlation with the clinical exam. There is bubbly fluid in the dependent portion of the left maxillary sinus from chronic sinusitis. The rest of the paranasal sinuses are clear. The mastoids are clear. The intraorbital soft tissue structures are unremarkable. The airway structures are normal in appearance. IMPRESSION: Acute, nondisplaced, bilateral nasal fractures. Possible posterior dislocation of the TMJ menisci bilaterally with anterior subluxation of the mandibular condyles and of the entire mandible. Recommend correlation with the clinical exam. Mild chronic left maxillary sinusitis. Please note that all CT scans at this facility use dose modulation, iterative reconstruction, and/or weight-based dosing when appropriate to reduce radiation dose to as low as reasonably achievable. Dictated by Naman Santiago MD @ 08/15/2022 1:05:53 AM (Electronically Signed)
--- NOTE | 2022-08-14 23:13 | CRLHL7_ITS ---
For Patients: As a result of the Cures Act, medical imaging exams and procedure reports are released immediately into your electronic medical record. You may view this report before your referring provider. If you have questions, please contact your health care provider. HISTORY: Pain after fall. COMPARISON: None available. FINDINGS: A single AP view of the pelvis shows no sign of fracture or dislocation. There is mild left greater than right primary osteoarthritis of both hips with joint space narrowing and mild sclerosis of the articular surfaces with mild marginal osteophyte formation. The sacroiliac joints and pubic symphysis are normal appearance. There is tilting of the lumbar spine towards the right from mild dextroscoliosis. There is moderate disc degenerative disease throughout the inferior lumbar spine. The soft tissues of the pelvis are unremarkable. IMPRESSION: No sign of acute osseous injury. 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 Moderate disc degenerative disease in the inferior lumbar spine. Dictated by Naman Santiago MD @ 08/15/2022 1:10:15 AM (Electronically Signed)
[2022-08-14 23:32] LABS: Basophils Absolute Auto 0.02 K/uL (0.00-0.30); Basophils Percent Auto 0.4 % (0.0-3.0); Eosinophils Absolute Auto 0.17 K/uL (0.00-0.50); Hematocrit 38.3 % (33.0-51.0); Hemoglobin* 12.2 gm/dL (12.0-16.0); Immature Granulocytes Abs Auto 0.03 K/uL (0.00-0.30); Lymphocytes Absolute Auto 1.15 K/uL (0.90-2.90); Lymphocytes Percent Auto 20.6 % (20-44); Mean Corpuscular HGB Conc 32 gm/dL (32-36); Mean Corpuscular Hemoglobin 29 pg (26-34); Mean Corpuscular Volume 92 fL (80-100); Monocytes Percent Auto 13.8 % (0.0-11.0); Neutrophils Absolute Auto 3.44 K/uL (1.7-7.0); Neutrophils Percent Auto 61.7 % (42.0-72.0); Platelet Count* 180 K/uL (140-440); RDW Coefficient of Variation % 13.9 % (11.5-15.5); Red Blood Count 4.16 m/uL (4.00-5.20); White Blood Count* 5.58 K/uL (4.50-11.00)
[2022-08-14 23:36] LABS: Slide Review Reflex No
[2022-08-14 23:37] LABS: Lactate* 4.5 mmol/L (0.5-1.9)
[2022-08-14 23:48] LABS: Albumin* 4.3 g/dL (3.3-5.0); Chloride* 95 mmol/L (96-114)
[2022-08-14 23:49] LABS: Sodium* 133 mmol/L (135-149)
[2022-08-14 23:50] LABS: Potassium* 4.1 mmol/L (3.6-5.1)
[2022-08-14 23:51] LABS: Amylase* 86 U/L (18-89)
[2022-08-14 23:52] LABS: Alkaline Phosphatase* 111 U/L (40-150); Aspartate Amino Transferase* 42 U/L (12-35); Bilirubin Total* 0.1 mg/dL (0.1-1.5); Blood Urea Nitrogen* 26 mg/dL (7-30); Calcium* 8.8 mg/dL (8.4-10.6); Carbon Dioxide* 22 mmol/L (20-32); Creatinine* 1.1 mg/dL (0.5-1.5); Est. Creatinine Clearance* 35.99; Estimated Glomerular Filt Rate 52 ml/min; Glucose* 127 mg/dL (60-115); Total Protein* 6.7 g/dL (6.0-8.3)
[2022-08-14 23:53] LABS: Acetaminophen* < 10.0 ug/mL (10.0-30.0); Alanine Aminotransferase* 39 U/L (4-35); Ethanol* 0.23 % (0.01-0.03); Salicylate* < 1.0 mg/dL (1.0-10)
[2022-08-14 23:59] LABS: NT Pro B Type NatriureticPept* 1510 PG/mL (0-450)
[2022-08-15] VITALS: BP 127/64; PULSE 77; RESP 16; O2SAT 91
[2022-08-15] LABS: C Reactive Protein* < 0.5 mg/dL (0.5-1.0)
[2022-08-15 00:01] LABS: INR 0.97 (0.91-1.10); Prothrombin Time 13.3 Seconds
[2022-08-15 00:02] LABS: Troponin I* 0.03 ng/mL (0.01-0.04)
[2022-08-15] MEDS: 0.9 % SODIUM CHLORIDE 500 ML 500 ML IV (00:06)
--- OUTSIDE RECORDS SUMMARY | 2022-08-15 00:09 | XMS_ITS | Clinical Summary ---
:1945 Author Organization [facility] [place] [address] Care Team Providers Name Role Phone Ashutosh Gonzales MD Primary Care Provider [phone] Qiana Huntley RN Unavailable Karrie Duarte RD Unavailable Allergies Active Allergy Reactions Severity Noted Date Comments Cat Dander Other - Describe In 02/05/2018 Comment Field Losartan Other - Describe In 07/28/2022 Increase d Creatinine and Comment Field potassium Medications Medication Sig Dispensed Refills Start End Date Status Date Vit Take 1 tablet 90 Cap 3 Active A,C,L-Cqll-Vddgep twice daily 7 ([facility]) 14,320226-200 npyq-ou-hxzb cap cyanocobalamin Take 1 tablet by 90 [...] >=3 years)(Flu 08/25/2010 Clinic Only) COVID-19 vaccine ([facility] [place] 01/16/2021, 12/26/2020 30mcg/0.3mL) PF, MDV Influenza A [...] Status Comments Brother Alive Father (Age 50) [place] Mother Alive Social History Tobacco Use Types [...] Visit Ashutosh Gonzales MD [address] [place] [address] (Wo rk) 09/07/2022 Ancillary Procedure [...] Group MEDICARE PART B MEDICARE PART B [id number] 2010-Present ATTN: CLAIMS - HB USE ONLY HB ONLY [address] [place] [address] MEDICARE PART A MEDICARE PART A [id number] 2010-Present ATTN: CLAIMS - HB USE ONLY HB ONLY [address] [place] [address] MEDICARE - PB MEDICARE PB [id number] 2010-Present ATT N: CLAIMS USE ONLY ONLY [address] [place] [address] PREFERRED ONE AETNA [id number] 2018-Present [id number] [place] [address] Advance Directives Documents on File Type Date Recorded Patient Strawberry Grower Explanati on Healthcare Directive 05/02/2013 12:00 AM ADVANCE DIRECTIVE Latest Code Status on File Code Status Date Activated Date Inactivated Comments Full Code 03/06/2014 7:28 PM 03/09/2014 5:42 PM Care Teams Canceling And Cutting Control Clerk Relationship Specialty Start Date End Date Ashutosh Gonzales, PCP - General Family Practice 07/21/17 [place] [address] Qiana Huntley, paralegal internship 12/31/20 [address] [place] [address] Staff Physical Therapy Assistant Data Programmer 12/31/20 100 [facility] [place] [address]
--- OUTSIDE RECORDS SUMMARY | 2022-08-15 00:09 | XMS_ITS | Encounter Summary ---
:1945 Author Organization [facility] Address [address] [place] [address] Care Team Providers Name Role Phone Elsewhere, Pcp Primary Care Provider Unavailable Reason for Referral Outpatient (Routine) - Authorized Specialty Diagnoses / Procedures Referred By Contact Refer red To Contact Dermatology Marianela Braden M.D . [facility] Region [address] [place], [place] [address] Referral ID Status Reason Start Date Expiration Date Visits V isits Requested Authorized [id number] Authorized 06/28/2022 06/27/2025 1 1 Reason for Visit Reason Comments Biopsy Shave left medial calf and r ight medial calf Outpatient (Routine) - Closed Specialty Diagnoses / Procedures Referred By Contact Refer red To Contact Dermatology Diagnoses Tumor Skin Uncertain Behavior Marianela Braden M.D. [facility] Procedures Dermatology misc minor procedure [address] [place] [address] Referral ID Status Reason Start Date Expiration Date Visits Requ ested Visits Authorized [id number] Closed 06/06/2022 06/06/2023 1 1 Encounter Details Date Type Department Care Team Description 06/28/2022 Procedure visit Department of Marianela Braden Tumor Skin Uncertain Dermatology in Tomás Hale M.D. [place], [place] [address] [phone] Social History Tobacco Use Types Packs/Day Years [...] the patient by letter. Patient given pamphlet [id number]. Discussed the risks, benefits, alternatives, and the [...] CDT Left medial calf: Benign lesion letter [place] patient. Please send letter documented in this encounter Plan of Treatment Upcoming Encounters Date Type Specialty Care Team Description 09/27/2022 Office Visit Dermatology Marianela Braden M.D. [address] [place], [place] [phone] (Wo rk) Scheduled Referrals [...] Organization Address City/State/ZIP Code Phon e Number [facility] - [address] [place], [place] [address] [place] [address] [facility] [address] documented in this encounter Visit Diagnoses Diagnosis Tumor Skin Uncertain Behavior documented in this encounter Additional Health Concerns Assessment Noted Time PHQ-9 Depression Total Score: 1 12/02/2015 8:50 AM PETROLEUM LABORATORY TECHNICIAN documented as of this encounter Care Teams Notereader Relationship Specialty Start Date End Date Elsewhere, Pcp PCP - General Family Medicine 01/30/19 documented as of this encounter
--- OUTSIDE RECORDS SUMMARY | 2022-08-15 00:09 | XMS_ITS | Encounter Summary ---
:1945 Author Organization [facility] Address [address] [place] [address] Care Team Providers Name Role Phone Elsewhere, [...] Visit Dermatology Marianela Braden M.D. [address] [place], [place] [phone] (Wo rk) documented as [...] Depression Total Score: 1 12/02/2015 8:50 AM BENCH HAND documented as of this encounter Care Teams Rigging Up Worker Relationship Specialty Start Date End Date Elsewhere, Pcp PCP - General Family Medicine 01/30/19 documented as of this encounter
--- OUTSIDE RECORDS SUMMARY | 2022-08-15 00:09 | XMS_ITS | Encounter Summary ---
:1945 Author Organization [facility] Address [address] [place] [address] Care Team Providers Name Role Phone Elsewhere, [...] Visit Dermatology Marianela Braden M.D. [address] [place], [place] [phone] (Wo rk) documented [...] Depression Total Score: 1 12/02/2015 8:50 AM FAST FOOD SHIFT SUPERVISOR documented as of this encounter Care Teams Sanipractic Physician Relationship Specialty Start Date End Date Elsewhere, Pcp PCP - General Family Medicine 01/30/19 documented as of this encounter
--- OUTSIDE RECORDS SUMMARY | 2022-08-15 00:09 | XMS_ITS | Encounter Summary ---
:1945 Author Organization [facility] Address [address] [place] [address] Care Team Providers Name Role Phone Elsewhere, [...] Visit Dermatology Marianela Braden M.D. [address] [place], [place] [phone] (Wo rk) documented as [...] Depression Total Score: 1 12/02/2015 8:50 AM STORE SPECIALIST documented as of this encounter Care Teams Drawing In Machine Tender Relationship Specialty Start Date End Date Elsewhere, Pcp PCP - General Family Medicine 01/30/19 documented as of this encounter
--- OUTSIDE RECORDS SUMMARY | 2022-08-15 00:09 | XMS_ITS | Clinical Summary ---
:1945 Author Organization [facility] Address [address] [place] [address] Care Team Providers Name Role Phone Elsewhere, Pcp Primary Care Provider Unavailable Source Comments Patient records contain information from all sites at [facility]. For routine questions regarding patient records, call [phone] during business hours, M-F 8:00 AM - 5:00 PM Central Time. Record requests for emergency care only can be directed to [phone] at any time.[facility] Allergies Active Allergy Reactions Severity Noted Date [...] Visit Dermatology Marianela Braden M.D. [address] [place] [phone] (Wo rk) Health Maintenance Due Date [...] Organization Address City/State/ZIP Code Phon e Number [facility] Dermatopathology Consult (06/28/2022 9:49 AM CDT) [...] Organization Address City/State/ZIP Code Phon e Number [facility] - [address] [place], [place] [address] [facility] [place] [place] [address] [facility] [place] [address] from Last 3 Months Insurance Payer Benefit Plan / Subscriber ID Effective Phone Address T ype Group Dates MEDICARE MEDICARE A AND B [id number] 2010-Prese [address] [place] [address] AETNA AETNA [id number] 2018-Prese [phone] [id number] [place] [address] (Work) [phone] Care Teams Apprentice Stylist Relationship Specialty Start Date End Date Elsewhere, Pcp PCP - General Family Medicine 01/30/19
--- OUTSIDE RECORDS SUMMARY | 2022-08-15 00:10 | XMS_ITS | Encounter Summary ---
:1945 Author Organization [facility] Address [address] [place] [address] Care Team Providers Name Role Phone Elsewhere, Pcp Primary Care Provider Unavailable Encounter Details Date Type Department Care Team Description 02/15/2021 Clinical Communication Department of Marianela Braden, Dermatology in [place], [place] [address] [facility] [address] [place] [phone] Social History Tobacco Use Types Packs/Day Years [...] Visit Dermatology Marianela Braden M.D. [address] [place], [place] [phone] (Wo rk) documented as of this encounter Visit Diagnoses Not on filedocumented in this encounter Additional Health Concerns Assessment Noted Time PHQ-9 Depression Total Score: 1 12/02/2015 8:50 AM CURRICULUM ASSISTANT PRINCIPAL documented as of this encounter Care Teams Senior Hris Analyst Relationship Specialty Start Date End Date Elsewhere, Pcp PCP - General Family Medicine 01/30/19 documented as of this encounter
--- OUTSIDE RECORDS SUMMARY | 2022-08-15 00:10 | XMS_ITS | Encounter Summary ---
:1945 Author Organization [facility] Address [address] [place] [address] Care Team Providers Name Role Phone Elsewhere, [...] Visit Dermatology Marianela Braden M.D. [address] [place], [place] [phone] (Wo rk) documented as [...] Depression Total Score: 1 12/02/2015 8:50 AM MEDICAL IMAGING TECHNOLOGIST documented as of this encounter Care Teams Glass Mold Repairer Relationship Specialty Start Date End Date Elsewhere, Pcp PCP - General Family Medicine 01/30/19 documented as of this encounter
--- OUTSIDE RECORDS SUMMARY | 2022-08-15 00:10 | XMS_ITS | Encounter Summary ---
:1945 Author Organization [facility] Address [address] [place] [address] Care Team Providers Name Role Phone Elsewhere, Pcp Primary Care Provider Unavailable Reason for Visit Reason Comments Follow-up Outpatient (Routine) - Closed Specialty Diagnoses / Procedures Referred By Contact Refer red To Contact Dermatology Marianela Braden M.D . [facility] Region [address] [place] [address] Referral ID Status Reason Start Date Expiration Date Visits Requ ested Visits Authorized [id number] Closed 07/29/2019 07/28/2020 1 1 Encounter Details Date Type Department Care Team Description 11/11/2019 Office Visit Department of Marianela Braden, Keratosis Actinic (Primary Dx); Dermatology in Tomás Cordon Keratosis Seborrheic; [place], [place] [address] [facility] Verrucal Keratosis; [address] [place] [address] Cancer Skin Basal Cell [place] [phone] Social History Tobacco Use Types Packs/Day [...] has??a history of??basalcell carcinoma involving the right evangelical, status post Mohs surgery in June 2013 at [facility]. She denies a personal history of melanoma. Her brother has had melanoma. The patient has no other concerns today. Allergies Allergen Reactions ??? Cat Dander Other (see comments) Runny nose itchy eyes ??? Pollen Extracts Other (see comments) Runny nose, itchy eyes PAST MEDICAL HISTORY 1. Basal cell carcinoma involving right evangelical, status post Mohs surgery in June 2013 at [facility] 2. Negative for melanoma ?? FAMILY HISTORY [...] versus seborrheic keratosis. Examination of the right evangelical/ forehead reveals no evidence for recurrence of [...] a return visit for reassessment. #3 Right evangelical: History of basal cell carcinoma, status post Mohs surgery in June 2013 at [facility] No clinical evidence of local recurrence today. [...] Electronically Signed: nay Virk. 11/11/2019. 11:13 AM FILLING STATION LABORER. IMarianela M.D., personally performed the services described in this documentation. All medical record entries made by the scribe were at my direction and in my presence. I have reviewed the chart and discharge instructions (if applicable) and agree that the record reflects my personal performance and is accurate and complete. Marianela Braden M.D. . 11/11/2019. 11:27 AM FILLING STATION LABORER. ING STATION LABORER documented in this encounter Plan of Treatment Upcoming Encounters Date Type Specialty Care Team Description 09/27/2022 Office Visit Dermatology Marianela Braden M.D. [address] [place], [place] [phone] (Wo rk) documented as of this encounter Visit Diagnoses Diagnosis Keratosis Actinic - Primary Keratosis Seborrheic Verrucal Keratosis Cancer Skin Basal Cell Personal History documented in this encounter Additional Health Concerns Assessment Noted Time PHQ-9 Depression Total Score: 1 12/02/2015 8:50 AM FILLING STATION LABORER documented as of this encounter Care Teams Ornamental Iron Worker Helper Relationship Specialty Start Date End Date Elsewhere, Pcp PCP - General Family Medicine 01/30/19 documented as of this encounter
--- OUTSIDE RECORDS SUMMARY | 2022-08-15 00:10 | XMS_ITS | Encounter Summary ---
:1945 Author Organization [facility] Address [address] [place] [address] Care Team Providers Name Role Phone Elsewhere, Pcp Primary Care Provider Unavailable Reason for Referral Outpatient (Routine) - Closed Specialty Diagnoses / Procedures Referred By Contact Refer red To Contact Dermatology Diagnoses Tumor Skin Uncertain Behavior Marianela Braden M.D. [facility] Region Procedures Dermatology misc minor procedure [address] [place] [address] Referral ID Status Reason Start Date Expiration Date Visits Requ ested Visits Authorized [id number] Closed 06/06/2022 06/06/2023 1 1 Reason for Visit Reason Comments Follow-up Encounter Details Date Type Department Care Team Description 06/06/2022 Office Visit Department of Marianela Braden, Tumor Skin Uncertain Behavior (Primary Dx); Dermatology in Tomás Cordon Keratosis Actinic; [place], [place] [address] [facility] Nevi Multiple; [address] [place] [address] [place] [phone] Social History Tobacco Use Types Packs/Day Years [...] of basal cell carcinoma involving the right baptist, status post Mohs surgery in 2013 done elsewhere. She denies a personal history for melanoma. Her brother has had melanoma. She uses sunscreen. She denies any new or changing lesions today. MEDICAL HISTORY 1. Right baptist: History of basal cell carcinoma, status post [...] extremities. My scribe (Zofia) served as a vulcanizing press operator for the entirety of the exam. Examination of the right baptist reveals no evidence for recurrence of basal [...] immediate return visit for reassessment. #5 Right baptist: History of basal cell carcinoma, status post [...] Visit Dermatology Marianela Braden M.D. [address] [place], [place] [phone] (Wo rk) Scheduled Orders [...] Depression Total Score: 1 12/02/2015 8:50 AM DIPLOMA MAKER documented as of this encounter Care Teams Sling Operator Relationship Specialty Start Date End Date Elsewhere, Pcp PCP - General Family Medicine 01/30/19 documented as of this encounter
--- OUTSIDE RECORDS SUMMARY | 2022-08-15 00:10 | XMS_ITS | Encounter Summary ---
:1945 Author Organization [facility] Address [address] [place] [address] Care Team Providers Name Role Phone Naren Kruger M.D. Primary Care Provider Reason for Referral Outpatient (Routine) - Closed Specialty Diagnoses / Procedures Referred By Contact Refer red To Contact Neurology Naren Kruger M .D. [address] [place] [address] Referral ID Status Reason Start Date Expiration Date Visits V isits Requested Authorized [id number] Closed Specialty 09/05/2017 03/04/2018 1 1 Services Required Encounter Details Date Type Department Care Team Description 09/05/2017 Orders Only Department of [facility] Naren Kruger , Internal Medicine in [place], [place] [address] [place] [address] [place] [address] [phone] Social History Tobacco Use Types Packs/Day Years Used Date Smoking Tobacco: Former Sex Assigned at Date Recorded Not on file documented as of this encounter Plan of Treatment Upcoming Encounters Date Type Specialty Care Team Description 09/27/2022 Office Visit Dermatology Marianela Braden M.D. [address] [place], [place] [phone] (Wo rk) Scheduled Referrals Name Type Priority Associated Diagnoses Order S chedule Neurology - General Outpatient Referral Routine E xpected: consult (clinic) 08/30/2017 (Approximate), Expires: 09/03/2022 documented as of this encounter Visit Diagnoses Not on filedocumented in this encounter Additional Health Concerns Assessment Noted Time PHQ-9 Depression Total Score: 1 12/02/2015 8:50 AM HEAVY TRUCK TECHNICIAN documented as of this encounter Care Teams Power Line Lineman Relationship Specialty Start Date End Date Naren Kruger M.D. PCP - General 04/20/17 06/28/[address] [place] [address] documented as of this encounter
--- OUTSIDE RECORDS SUMMARY | 2022-08-15 00:10 | XMS_ITS | Encounter Summary ---
:1945 Author Organization [facility] Address [address] [place] [address] Care Team Providers Name Role Phone Naren Kruger M.D. Primary Care Provider Encounter Details Date Type Department Care Team Description 05/30/2018 Clinical Communication Department of Naren Thomas [place] M, M.D. [facility], in [address] [address] [place], [place] [phone] (Work) [phone] Social History Tobacco Use Types Packs/Day Years Used Date Smoking Tobacco: Unknown Sex Assigned at Date Recorded Not on file documented as of this encounter Plan of Treatment Upcoming Encounters Date Type Specialty Care Team Description 09/27/2022 Office Visit Dermatology Marianela Braden M.D. [address] [place], [place] [phone] (Wo rk) documented as of this encounter Visit Diagnoses Not on filedocumented in this encounter Additional Health Concerns Assessment Noted Time PHQ-9 Depression Total Score: 1 12/02/2015 8:50 AM COMPUTER GAME PROGRAMMER documented as of this encounter Care Teams Master Technician Relationship Specialty Start Date End Date Naren Kruger M.D. PCP - General 04/20/17 06/28/[address] [place] [address] documented as of this encounter
--- OUTSIDE RECORDS SUMMARY | 2022-08-15 00:10 | XMS_ITS | Encounter Summary ---
:1945 Author Organization [facility] Address [address] [place] [address] Care Team Providers Name Role Phone Elsewhere, Pcp Primary Care Provider Unavailable Reason for Visit Reason Comments Follow-up Encounter Details Date Type Department Care Team Description 03/04/2019 Office Visit Department of Marianela Braden, Tumor Skin Uncertain Behavior (Primary Dx); Dermatology in [facility]; [place], [place] [address] [facility] Cancer Skin Basal Cell Personal History [address] [place] [phone] [phone] Social History Tobacco Use Types Packs/Day Years [...] of basal cell carcinoma involving her right scientology status post Mohs surgery at [facility] in June 2013. She denies a personal history of melanoma. Her brother has a history of melanoma. PAST MEDICAL HISTORY 1. Basal cell carcinoma involving her right scientology status post Mohs surgery at [facility] in June 2013 FAMILY HISTORY Brother has history of melanoma PHYSICAL EXAM General: Awake, alert, in no acute distress, and with appropriate affect. Skin: Examination of the right scientology reveals excision scar with no evidence of recurrence of basal cell carcinoma. Just adjacent to this there is a seborrheic keratosis versus verrucal keratosis. Examination of the left scientology reveals actinic keratoses x 2. Examination of [...] the patient by letter. Patient given pamphlet [id number]. Discussed the risks, benefits, alternatives, and the necessity of other members of the healthcare team participating in the procedure. All questions answered and consent given. #2 Left scientology: Actinic keratosis x 2 CONSENT Discussed the [...] a total of 2 lesion(s) with two 79-32-hwtdtk freeze-thaw cycles of liquid nitrogen cryothe rapy. The patient tolerated the procedure well. Aftercare instructions were provided in written and verbal form to the patient. Should any of these lesions recur, the patient should return for biopsy or further evaluation. Follow up in 1-2 months for recheck if these do not completely resolve. #3 Right scientology: History of basal cell carcinoma status post [...] of thecontent. By signing my name below, IAmiarh, attest that this documentation has been prepared [...] - 03/04/2019 11:00 AM CDT Benign lesion. [place] patient. please send letter documented in this encounter Plan of Treatment Upcoming Encounters Date Type Specialty Care Team Description 09/27/2022 Office Visit Dermatology Marianela Braden M.D. [address] [place], [place] [phone] (Wo rk) documented as of this encounter Procedures Procedure Name Priority Date/Time Associated Comments Diagnosis DERMATOPATHOLOGY CONSULT Routine 03/04/2019 11:11 Tumor Skin Results for this AM CDT Uncertain Behavior procedure are in the results section. documented in this encounter Results Dermatopathology Consult (03/04/2019 11:11 AM CDT) Component Value Ref Test Analysis Performed At [facility] Method Time Signature Gross Received in formalin labeled with the patient's name, 03/11/2019 [facility] Description: medical record number, and nasal tip is a 0.5 x 0.2 x 0.1 4:31 PM CDT LABORATORIES - cm pale [place] previously inked skin shave biopsy. No discrete [facility] lesion is grossly identified on the skin surface. The [place] specimen is submitted en toto in cassette A1. Grossed by [facility]. Report Fidelina N. 03/11/2019 [facility] electronically Neris [place] 4:31 PM CDT LABORATOR IES - signed by [facility] 03/11/2019 [facility] 4:31 PM CDT LABORATORIES - [facility] Interpetation FINAL DIAGNOSIS 03/11/2019 [facility] ??DermPath Consult Wet Tissue; Nasal tip, Skin shave 4:31 PM CDT LABORATORIES - biopsy: ??Dilated telangiectasias; no tumor identified after [facility] multiple tissue levels examined CAMPUS Specimen Anatomical Collection Method Collection Time Receive d Time (Source) Location / / Volume Laterality Tissue 03/04/2019 11:11 03/05/2019 7:42 AM CDT AM CDT Narrative This result has an attachment that is no t available. Marianela Braden M.D. LAB PATH DERM ORDERABLES Performing Organization Address City/State/ZIP Code Phon e Number [facility]ATORIES - [address] documented in this encounter Visit Diagnoses [...] Depression Total Score: 1 12/02/2015 8:50 AM DRILLING SUPERVISOR documented as of this encounter Care Teams Compounder Sterile Products Relationship Specialty Start Date End Date Elsewhere, Pcp PCP - General Family Medicine 01/30/19 documented as of this encounter
--- OUTSIDE RECORDS SUMMARY | 2022-08-15 00:10 | XMS_ITS | Encounter Summary ---
:1945 Author Organization [facility] Address [address] [place] [address] Care Team Providers Name Role Phone Naren Kruger M.D. Primary Care Provider Reason for Visit Reason Onset Date Comments Medicare Annual Wellness Visit Initial 03/22/2018 Encounter Details Date Type Department Care Team Description 03/22/2018 Clinical Communication Department of Chapito Jay Annual Community Internal L, RLoriNLori Wellness Visit Medicine in [address] [address] [place], [place] [phone] [address] (Work) [phone] Social History Tobacco Use Types Packs/Day Years Used Date Smoking Tobacco: Unknown Sex Assigned at Date Recorded Not on file documented as of this encounter Miscellaneous Notes Addendum Note - Chapito Jay R.N. - 06/04/2018 3:15 PM CDT Addended by: CHAPITO JAY on: 06/04/2018 03:15 PM Modules accepted: Orders Telephone Encounter - Chapito Jay R.N. - 04/03/2018 10:49 AM CDT Letter sent. Telephone Encounter - Chapito Jay R.N. - 03/30/2018 10:32 AM CDT Left another message for patient to return call to discuss scheduling a Medicare Annual Wellness Visit. Telephone Encounter - Chapito Jay R.N. - 03/22/2018 3:06 PM CDT Called patient to discuss scheduling a medicare annual wellness visit. Left message for patient to return my call to discuss. documented in this encounter Plan of Treatment Upcoming Encounters Date Type Specialty Care Team Description 09/27/2022 Office Visit Dermatology Marianela Braden M.D. [address] [place], [place] [phone] (Wo rk) documented as of this encounter Visit Diagnoses Diagnosis Annual Medicare Examination Return - Waleska sotelo documented in this encounter Additional Health Concerns Assessment Noted Time PHQ-9 Depression Total Score: 1 12/02/2015 8:50 AM PICK PACK WORKER documented as of this encounter Care Teams Ammunition Specialist Relationship Specialty Start Date End Date Naren Kruger M.D. PCP - General 04/20/17 06/28/[address] [place] [address] documented as of this encounter
--- OUTSIDE RECORDS SUMMARY | 2022-08-15 00:10 | XMS_ITS | Encounter Summary ---
:1945 Author Organization [facility] Address [address] [place] [address] Care Team Providers Name Role Phone Brandin Kruger M.D. Primary Care Provider Encounter Details Date Type Department Care Team Description 04/25/2017 Hospital Encounter HX [facility] INTERNMED Jairo Kruger M.D. [address] [place] [address]21 (Wo rk) Social History Tobacco Use [...] Kruger M.D. - 04/25/2017 8:12 AM CDT [id number] CHIEF COMPLAINT/REASON FOR VISIT Congested ears, mild [...] KRUGER MD On: 04/26/2017 07:28 AM Source: [facility] MHSDOLBEYNONRADSYS Document Id: [id number] documented in this encounter Miscellaneous Notes Telephone [...] back cell phone number ( ) Source: [facility] POWERCHART Document Id: [id number] Miscellaneous - Brandin Kruger M.D. - 04/26/2017 [...] language for Healthcare discussion: _ Was an business planning manager used for this call? _ Other ( [...] 6.7 % A1C ( - <=5.6) Source: [facility] POWERCHART Document Id: [id number] Miscellaneous - Brandin Kruger M.D. - 04/25/2017 8:42 AM CDT Ambulatory Patient Summary [address] [id number] Visit Information Name: FRANCES HAGER [facility] Number: [id number] Current Date: 04/25/2017 08:42:27 Physicians [...] if you dont have one. Go to [email or web address] and click on Create Your Account. Then, follow the directions to complete the online form. Youll be asked for your [facility] number which you can find at the top of this document. Your Goals/Additional instructions: Source: [facility] POWERCHART Document Id: [id number] Miscellaneous - Brandin Kruger M.D. - 04/25/2017 8:42 AM CDT Ambulatory Discharge Medication List [address] [id number] Visit Information Name: FRANCES HAGER [facility] Number: [id number] Current Date: 04/25/2017 08:42:26 Attending [...] Additional Information: Source: [facility] POWERCHART Document Id: [id number] Jimmie - Brandin Kruger M.D. - 04/25/2017 8:25 AM CDT Quality Measures Quality Measures Entered On: 04/25/2017 8:26 CDT Performed On: 04/25/2017 8:25 CDT by BRANDIN KRUGER MD Diabetes Date of Last Foot Exam : 04/25/2017 CDT Date of Last Diabetes Education : 04/25/2017 CDT BRANDIN KRUGER MD - 04/25/2017 8:25 CDT [facility] Document Id: [id number] CDT!4 Jimmie - Irvin Salinsa L.P.N. - 04/25/2017 8:24 AM CDT Adult Hand Brim Ironer Intake/History Adult Hand Brim Ironer Intake/History Entered On: 04/25/2017 8:27 CDT Performed [...] Information Given By : Patient Languages : Hungarian Is Patient Female and 13-50 no hysterectomy [...] 12 months : No SALINASIRVIN CHAMPION RAE BALLROOM DANCE INSTRUCTOR - 04/25/2017 8:24 CDT Caffeine Use Grid Caffeine Use : Current Type : Coffee IRVIN SALINAS [facility] - 04/25/2017 8:24 CDT Recreational Drug Use Grid Drug Use : None IRVIN SALINAS BALLROOM DANCE INSTRUCTOR - 04/25/2017 8:24 CDT Source: [facility] POWERCHART Document Id: [id number] CDT!35 documented in this encounter Plan of Treatment Upcoming Encounters Date Type Specialty Care Team Description 09/27/2022 Office Visit Dermatology Marianela Braden M.D. [address] [place] [phone] (Wo rk) documented as of this [...] 15 MMOLL POWERCHART HXeGFR (MDRD) >60 >=60 [id number] POWERCHART eGFR Black/ >60 >=60 [id number] POWERCHART Glucose 92 70 - 139 MGDL [...] M.D. LAB BLOOD ADD-ON Performing Organization Address City/[facility] Code Phon e Number POWERCHART documented in this encounter Visit Diagnoses Not on filedocumented in this encounter Additional Health Concerns Assessment Noted Time PHQ-9 Depression Total Score: 1 12/02/2015 8:50 AM FIELD RESEARCH ASSISTANT documented as of this encounter Care Teams Event Marketing Representative Relationship Specialty Start Date End Date Brandin Kruger M.D. PCP - General 04/20/17 06/28/[address] [place] [address] [place] [address] documented as of this encounter
--- OUTSIDE RECORDS SUMMARY | 2022-08-15 00:10 | XMS_ITS | Encounter Summary ---
:1945 Author Organization [facility] Address [address] [place] [address] Care Team Providers Name Role Phone Naren Kruger M.D. Primary Care Provider Encounter Details Date Type Department Care Team Description 06/28/2017 Hospital Encounter HX NO MAPPING Christie Moffett, BLUE PRINT CONTROL CLERK, C.N.P. [address], [place] [phone] Naren Kruger M.D. [address] [place] [address] Social History Tobacco Use Types Packs/Day Years [...] Coding Summary-Paper Based CODING DATE: 07/11/[address] [facility] STATUS: * Discharged to Home or [...] SAUCEDA Date Saved: 07/11/2017 12:51 pm Source: [employer] Document Id: [id number] documented in this encounter Plan of Treatment Upcoming Encounters Date Type Specialty Care Team Description 09/27/2022 Office Visit Dermatology Marianela Braden M.D. [address] [place], [place] [phone] (Wo rk) documented as of this encounter Visit Diagnoses Not on filedocumented in this encounter Additional Health Concerns Assessment Noted Time PHQ-9 Depression Total Score: 1 12/02/2015 8:50 AM INFORMATION COORDINATOR documented as of this encounter Care Teams Entry Level Mechanical Engineer Relationship Specialty Start Date End Date Naren Kruger M.D. PCP - General 04/20/17 06/28/[address] [place] [address] documented as of this encounter
--- OUTSIDE RECORDS SUMMARY | 2022-08-15 00:10 | XMS_ITS | Encounter Summary ---
:1945 Author Organization [facility] Address [address] [place] [address] Care Team Providers Name Role Phone Unavailable Primary Care Provider Unavailable Encounter Details Date Type Department Care Team Description 02/15/2017 Hospital Encounter HX [facility] INTERNMED Jairo Kruger M.D. [address] [place] [address] (Wo rk) Social History Tobacco Use [...] Kruger M.D. - 02/15/2017 2:57 PM CDT [id number] CHIEF COMPLAINT/REASON FOR VISIT Uncontrolled diabetes. Ms. [...] KRUGER MD On: 02/20/2017 07:29 AM Source: [facility] MHSDOLBEYNONRADSYS Document Id: [id number] documented in this encounter Miscellaneous Notes Telephone Encounter - Conversion, Historical Provider Ser - 06/06/2017 3:02 PM CDT *Phone Message/[place] Document Contains Addenda Addendum by IRVIN SMITH LPN on June 07, 2017 09:34:49 CDT new form filled out and taken to front office manager for patient picker and packer Addendum by BRANDIN KRUGER MD on June 06, 2017 16:11:31 CDT From: BRANDIN KRUGER MD To: Brandin Kruger Nurse; Sent: 06/06/2017 16:11:31 CDT Subject: RE: *Phone Message/[place] ok Addendum by IVRIN SMITH LPN on June 06, 2017 16:03:53 [...] language for Healthcare discussion: _ Was an manager quality improvement used for this call? _ Other ( [...] disability permit. please call pt to clarify [phone] Advice/Action: Source used: ( ) Verbalizes understanding [...] back cell phone number ( ) Source: [facility] REEL Qualified Document Id: [id number] Telephone Encounter - Conversion, Historical Provider Ser - 04/12/2017 10:09 AM CDT *Phone Message Document Contains Addenda Addendum by FROILAN AGEE [facility] on April 12, 2017 13:32:58 CDT Spoke with: ( x ) Patient ( _ ) Parent ( _ ) Spouse ( _ ) Child ( ) Other: _ Call back telephone number: [phone] Reason for Call: -return call Chief Complaint: [...] day Callers preferred language for Healthcare discussion: luxembourgish Was an manager quality improvement used for this call? _ Other ( --_x ) na Addendum by BRANDIN KRUGER MD on April 12, 2017 13:05:37 CDT From: BRANDIN KRUGER MD To: Brandin Kruger Nurse; Sent: 04/12/2017 13:05:37 CDT Subject: RE: *Phone Message bloods on the day Addendum by FROILAN AGEE [facility] on April 12, 2017 10:46:06 CDT From: FROILAN AGEE [facility] ( Brandin Kruger Nurse) To: BRANDIN KRUGER MD; Sent: 04/12/2017 10:46:06 CDT Subject: FW: *Phone Message From: LEVAR SIERRA ( Family Medicine Storeperson) To: GRZEGORZ Kruger Nurse; Sent: 04/12/2017 10:09:36 [...] is out of the office until 04/25/17. [phone] Advice/Action: Source used: ( ) Verbalizes understanding [...] back cell phone number ( ) Source: [facility] REEL Qualified Document Id: [id number] Miscellaneous - Brandin Kruger M.D. - 02/15/2017 3:38 PM CDT Ambulatory Patient Summary [facility] [address] [place] [id number] Visit Information Name: FRANCES HAGER [facility] Number: [id number] Current Date: 02/15/2017 15:38:38 Physicians [...] Oral, once a day New Routed to [address] [address] lisinopril (lisinopril 40 mg oral [...] if you dont have one. Go to [email or web address] and click on Create Your Account. Then, follow the directions to complete the online form. Youll be asked for your [facility] number which you can find at the top of this document. Your Goals/Additional instructions: Source: [facility] POWERCHART Document Id: [id number] Miscellaneous - Brandin Kruger M.D. - 02/15/2017 3:38 PM CDT Ambulatory Discharge Medication List [address] [id number] Visit Information Name: FRANCES HAGER [facility] Number: [id number] Current Date: 02/15/2017 15:38:37 Attending [...] Oral, once a day New Routed to [place] [id number] [address] [address] lisinopril (lisinopril 40 mg oral [...] MD Signed On:15-FEB-2017 15:37:51 Additional Information: Source: [facility] POWERCHART Document Id: [id number] Miscellaneous - Lucio Snyder, LLoriPLoriN. - 02/15/2017 3:09 PM CDT Adult Explosive Ordnance Handler Intake/History Adult Explosive Ordnance Handler Intake/History Entered On: 02/15/2017 15:14 CDT Performed [...] By : Patient Languages : Citizen Of [place] Is Patient Female and 13-50 no hysterectomy [...] SNYDER LPN - 02/15/2017 15:09 CDT Source: [employer] Document Id: [id number] CDT!36 documented in this encounter Plan of Treatment Upcoming Encounters Date Type Specialty Care Team Description 09/27/2022 Office Visit Dermatology Marianela Braden M.D. [address] [place], [place] [phone] (Wo rk) documented as of this encounter Visit Diagnoses Not on filedocumented in this encounter Additional Health Concerns Assessment Noted Time PHQ-9 Depression Total Score: 1 12/02/2015 8:50 AM AVICULTURIST documented as of this encounter
--- OUTSIDE RECORDS SUMMARY | 2022-08-15 00:10 | XMS_ITS | Encounter Summary ---
:1945 Author Organization [facility] Address [address] [place] [address] Care Team Providers Name Role Phone Brandin Kruger M.D. Primary Care Provider Encounter Details Date Type Department Care Team Description 08/09/2017 Hospital Encounter HX [facility] INTERNMED Jairo Kruger M.D. [address] [place] [address] (Wo rk) Social History Tobacco Use [...] Kruger M.D. - 08/09/2017 3:12 PM CDT [id number] CHIEF COMPLAINT/REASON FOR VISIT Obsessive-compulsive disorder out [...] appointment with psychiatry in a week in [place] and they can go further into what [...] KRUGER MD On: 08/10/2017 06:52 AM Source: [facility] MHSDOLBEYNONRADSYS Document Id: [id number] documented in this encounter Miscellaneous Notes Miscellaneous - Brandin Kruger M.D. - 08/09/2017 4:29 PM CDT Ambulatory Patient Summary [address], [place] [id number] Visit Information Name: FRANCES HAGER [facility] Number: [id number] Current Date: 08/09/2017 16:29:15 Physicians [...] and 2 at bedtime New Routed to [address] [address] glipiZIDE (glipiZIDE 5 mg oral tablet) See [...] if you dont have one. Go to [email or web address] and click on Create Your Account. Then, follow the directions to complete the online form. Youll be asked for your [facility] number which you can find at the top of this document. Your Goals/Additional instructions: Source: [facility] POWERCHART Document Id: [id number] Miscellaneous - Brandin Kruger M.D. - 08/09/2017 4:29 PM CDT Ambulatory Discharge Medication List [address] [id number] Visit Information Name: FRANCES HAGER [facility] Number: [id number] Current Date: 08/09/2017 16:29:15 Attending [...] and 2 at bedtime New Routed to [address] [id number] glipiZIDE (glipiZIDE 5 mg oral tablet) See [...] MD Signed On:09-AUG-2017 16:28:31 Additional Information: Source: [facility] POWERCHART Document Id: [id number] Miscellaneous - Marisa Grullon L.P.N. - 08/09/2017 3:40 PM CDT Adult Geotechnical Intern Intake/History Adult Geotechnical Intern Intake/History Entered On: 08/09/2017 15:42 CDT Performed On: 08/09/2017 15:40 CDT by MARISA GRULLON LPN Intake Chief Complaint : 1. Referral to [facility] Daniel Temperature Core : 36.3 DegC(Converted [...] Communication Mode : Verbal, Written Languages : Martiniquais Is Patient Female and 13-50 no hysterectomy [...] : Current Type : Coffee MARISA GRULLON LUBRICATOR GRANULATOR - 08/09/2017 15:40 CDT Recreational Drug Use Grid Drug Use : None MARISA GRULLON LUBRICATOR GRANULATOR - 08/09/2017 15:40 CDT Source: [facility] [employer] Document Id: [id number] CDT!43 documented in this encounter Plan of Treatment Upcoming Encounters Date Type Specialty Care Team Description 09/27/2022 Office Visit Dermatology Marianela Braden M.D. [address] [place], [place] [phone] (Wo rk) documented as of this encounter Visit Diagnoses Not on filedocumented in this encounter Additional Health Concerns Assessment Noted Time PHQ-9 Depression Total Score: 1 12/02/2015 8:50 AM SKYDIVING INSTRUCTOR documented as of this encounter Care Teams Dimension Specification Inspector Relationship Specialty Start Date End Date Brandin Kruger M.D. PCP - General 04/20/17 06/28/[address] [place] [address] documented as of this encounter
--- OUTSIDE RECORDS SUMMARY | 2022-08-15 00:10 | XMS_ITS | Encounter Summary ---
:1945 Author Organization [facility] Address [address] [place] [address] Care Team Providers Name Role Phone Unavailable Primary Care Provider Unavailable Encounter Details Date Type Department Care Team Description 03/31/2017 Hospital Encounter HX [facility] Brandin Ervin M.D. [address] [place] [address] (Wo rk) Social History Tobacco Use [...] 06, 2017 14:24:40 CDT Edilberto calling from [facility] in [facility] Medicare only pays for a walker every 5 years.Would like to speak to nurse. pLease call [phone] Addendum by IRVIN SMITH LPN on June 05, 2017 10:25:42 CDT patient called Addendum by BRANDIN KRUGER MD on June 05, 2017 10:13:27 CDT From: BRANDIN KRUGER MD To: Brandin Kruger Nurse; Sent: 06/05/2017 10:13:27 CDT Subject: RE: *Phone Message needs to be seen for this Addendum by IRIVN SMITH LPN on June 05, 2017 10:08:11 [...] language for Healthcare discussion: _ Was an historical interpreter used for this call? _ Other ( [...] back cell phone number ( ) [facility] POWERCHART Document Id: [id number] Telephone Encounter - Conversion, Historical Provider Ser - 03/15/2017 8:57 AM CDT *Phone Message Document Contains Addenda Addendum by IRVIN SMITH LPN on March 15, 2017 10:01:40 CDT patient called scheduled to be seen tomarrow From: KATALINA DILLARD ([facility] Cab Starter) To: GRZEGORZ Kruger Nurse; Sent: 03/15/2017 08:57:01 [...] if you couldplease call her back at [phone] so if she needs to come early [...] back cell phone number ( ) Source: [facility] [employer] Document Id: [id number] documented in this encounter Plan of Treatment Upcoming Encounters Date Type Specialty Care Team Description 09/27/2022 Office Visit Dermatology Marianela Braden M.D. [address] [place] [phone] (Wo rk) documented as of this [...] Depression Total Score: 1 12/02/2015 8:50 AM CUTTER OPERATOR BRICK documented as of this encounter
--- OUTSIDE RECORDS SUMMARY | 2022-08-15 00:10 | XMS_ITS | Encounter Summary ---
:1945 Author Organization [facility] Address [address] [place] [address] Care Team Providers Name Role Phone Naren Kruger M.D. Primary Care Provider Encounter Details Date Type Department Care Team Description 04/30/2018 Orders Only Department of Naren Kruger Diabetes Me llitus Type 2 (HCC) (Primary Dx); [facility] Arian Bianchi M.D. Screening Mammogram Average Risk Patient Medicine in [address] 300 [facility] [address] [place], [place] [phone] (Work) [phone] Social History Tobacco Use Types Packs/Day Years Used Date Smoking Tobacco: Unknown Sex Assigned at Date Recorded Not on file documented as of this encounter Plan of Treatment Upcoming Encounters Date Type Specialty Care Team Description 09/27/2022 Office Visit Dermatology Marianela Braden M.D. [address] [place], [place] [phone] (Wo rk) documented as of this encounter Visit Diagnoses Diagnosis Diabetes Mellitus Type 2 (HCC) - Primary Screening Mammogram Average Risk Patient documented in this encounter Additional Health Concerns Assessment Noted Time PHQ-9 Depression Total Score: 1 12/02/2015 8:50 AM CARRIAGE DOGGER documented as of this encounter Care Teams Industrial Twisting Machine Operator Relationship Specialty Start Date End Date Naren Kruger M.D. PCP - General 04/20/17 06/28/18 [address] [place] [address] documented as of this encounter
--- OUTSIDE RECORDS SUMMARY | 2022-08-15 00:10 | XMS_ITS | Encounter Summary ---
:1945 Author Organization [facility] Address [address] [place] [address] Care Team Providers Name Role Phone Brandin Kruger M.D. Primary Care Provider Encounter Details Date Type Department Care Team Description 06/05/2017 Hospital Encounter HX [facility]ED Jairo Kruger M.D. [address] [place] [address] 021 (Wo rk) Social History Tobacco Use [...] Kruger M.D. - 06/05/2017 2:13 PM CDT [id number] CHIEF COMPLAINT/REASON FOR VISIT Disequilibrium. The patient [...] KRUGER MD On: 06/05/2017 03:37 PM Source: [facility] MHSDOLBEYNONRADSYS Document Id: [id number] documented in this encounter Miscellaneous Notes Miscellaneous - Brandin Kruger M.D. - 06/05/2017 2:42 PM CDT Ambulatory Patient Summary [address] [id number] Visit Information Name: FRANCES HAGER [facility] Number: [id number] Current Date: 06/05/2017 14:42:39 [...] if you dont have one. Go to [email or web address] and click on Create Your Account. Then, follow the directions to complete the online form. Youll be asked for your [facility] number which you can find at the top of this document. Your Goals/Additional instructions: Source: [facility] POWERCHART Document Id: [id number] Miscellaneous - Brandin Kruger M.D. - 06/05/2017 2:42 PM CDT Ambulatory Discharge Medication List [address] [id number] Visit Information Name: FRANCES HAGER [facility] Number: [id number] Current Date: 06/05/2017 14:42:38 [...] MD Signed On:05-JUN-2017 14:41:33 Additional Information: Source: [facility] POWERCHART Document Id: [id number] Miscellaneous - Jacque Agee C.M.A. - 06/05/2017 2:26 PM CDT Adult Social Work Supervisor Intake/History Adult Social Work Supervisor Intake/History Entered On: 06/05/2017 14:29 CDT Performed On: 06/05/2017 14:26 CDT by JACQUE AGEE [facility] Intake Chief Complaint : 1: balance follow [...] Mass Index : 38.55 kg/m2 JACQUE AGEE [facility] - 06/05/2017 14:26 CDT General Info Information Given By : Patient Languages : Hebrew Is Patient Female and 13-50 no hysterectomy : No JACQUE AGEE INTERMEDIATE MANAGER - 06/05/2017 14:26 CDT Subjective Pain Symptoms : Yes JACQUE AGEE [facility] - 06/05/2017 14:26 CDT Pain Scale Pain Scale Verbal 0-10 : Open JACQUE AGEE [facility] - 06/05/2017 14:26 CDT Pain Pain Assessment Grid Pain 1 Location : Lower back Laterality : Bilateral JACQUE AGEE [facility] - 06/05/2017 14:26 CDT Dependent Habits Exposure to Tobacco Smoke : Other: former smoker Smoking Status : Former smoker Tobacco 2A : Yes Tobacco Use/Currently Using : No Tobacco Use/Last 30 Days : No Tobacco Use/Last 12 months : No JACQUE AGEE CMA - 06/05/2017 14:26 CDT Caffeine Use Grid Caffeine Use : Current Type : Coffee JACQUE AGEE [facility] - 06/05/2017 14:26 CDT Recreational Drug Use Grid Drug Use : None JACQUE AGEE CMA - 06/05/2017 14:26 CDT Source: [facility] POWER[facility] Document Id: [id number]!44 documented in this encounter Plan of Treatment Upcoming Encounters Date Type Specialty Care Team Description 09/27/2022 Office Visit Dermatology Marianela Braden M.D. [address] [place], [place] [phone] (Wo rk) documented as of this encounter Visit Diagnoses Not on filedocumented in this encounter Additional Health Concerns Assessment Noted Time PHQ-9 Depression Total Score: 1 12/02/2015 8:50 AM MIXER OPERATOR RAW SALT documented as of this encounter Care Teams Nanotechnology Engineering Technician Relationship Specialty Start Date End Date Brandin Kruger M.D. PCP - General 04/20/17 06/28/[address] [place] [address] documented as of this encounter
--- OUTSIDE RECORDS SUMMARY | 2022-08-15 00:10 | XMS_ITS | Encounter Summary ---
:1945 Author Organization [facility] Address [address] [place] [address] Care Team Providers Name Role Phone Elsewhere, Pcp Primary Care Provider Unavailable Reason for Visit Reason Comments Skin Check Appointment Request (Routine) - Closed Specialty Diagnoses / Procedures Referred By Contact Refer red To Contact Dermatology Referral ID Status Reason Start Date Expiration Date Visits Requ ested Visits Authorized [id number] Closed 11/24/2020 11/24/2021 1 1 Encounter Details Date Type Department Care Team Description 02/15/2021 Office Visit Department of Marianela Braden, Keratosis Actinic (Primary Dx); Dermatology in [place], [place] [address] [facility] Keratosis Seborrheic [address] [place] [phone] Social History Tobacco Use Types Packs/Day Years [...] of basal cell carcinoma involving the right quaker, status post Mohs surgery in June 2013 at [facility]. The patient denies a personal history for [...] nose, itchy eyes MEDICAL HISTORY 1. Right quaker: Basal cell carcinoma, status post Mohs surgery in June 2013 at [facility]. 2. Negative history for melanoma. 3. History [...] full exam today. Examination of the right quaker reveals no clinical evidence for local recurrence [...] skin cancer. ASSESSMENT / PLAN #1 Right quaker: Basal cell carcinoma, status post Mohs surgery in June 2013 at [facility], norecurrence Examination today reveals no clinical evidence [...] Visit Dermatology Marianela Braden M.D. 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
--- OUTSIDE RECORDS SUMMARY | 2022-08-15 00:10 | XMS_ITS | Encounter Summary ---
:1945 Author Organization [facility] Address [address] [place] [address] Care Team Providers Name Role Phone Dary Newman APRN C.N.P. Primary Care Provider Encounter Details Date Type Department Care Team Description 10/08/2018 Orders Only Department of Dary Newman V., Diabetes Mellitus Type Community Internal FREDIS C.N.P. 2 (HCC) (Primary Dx) Medicine in [address] 300 [facility] [address] [place], [place] [phone] (Work) [phone] Social History Tobacco Use Types Packs/Day Years Used Date Smoking Tobacco: Unknown Smokeless Tobacco: Never Sex Assigned at Date Recorded Not on file documented as of this encounter Plan of Treatment Upcoming Encounters Date Type Specialty Care Team Description 09/27/2022 Office Visit Dermatology Marianela Braden M.D. [address] [place], [place] [phone] (Wo rk) documented as of this encounter Visit Diagnoses Diagnosis Diabetes Mellitus Type 2 (HCC) - Primary documented in this encounter Additional Health Concerns Assessment Noted Time PHQ-9 Depression Total Score: 1 12/02/2015 8:50 AM MOBILE APPLICATION DEVELOPER documented as of this encounter Care Teams Graduate Internship Relationship Specialty Start Date End Date Dary Newman APRN, C.N.P. PCP - General Internal Medicine 06/29/18 01/29/19 [address] [place] [phone] documented as of this encounter
--- OUTSIDE RECORDS SUMMARY | 2022-08-15 00:10 | XMS_ITS | Encounter Summary ---
:1945 Author Organization [facility] Address [address] [place] [address] Care Team Providers Name Role Phone Naren Kruger M.D. Primary Care Provider Encounter Details Date Type Department Care Team Description 06/28/2017 Hospital Encounter HX [facility] Jairo Kruger M.D. [address] [place] [phone] (Wo yajaira) Social History Tobacco [...] Depression Total Score: 1 12/02/2015 8:50 AM SEWER PIPE OFFBEARER documented as of this encounter Care Teams Warble Saw Operator Relationship Specialty Start Date End Date Naren Kruger M.D. PCP - General 04/20/17 06/28/[address] [place] [address] documented as of this encounter
--- OUTSIDE RECORDS SUMMARY | 2022-08-15 00:10 | XMS_ITS | Encounter Summary ---
:1945 Author Organization [facility] Address [address] [place] [address] Care Team Providers Name Role Phone Elsewhere, Pcp Primary Care Provider Unavailable Reason for Visit Reason Comments Follow-up left calf and f/u face lesio ns Outpatient (Routine) - Closed Specialty Diagnoses / Procedures Referred By Contact Refer red To Contact Dermatology Marianela Braden M.D . [facility] Region [address] [place] [phone] Referral ID Status Reason Start Date Expiration Date Visits Requ ested Visits Authorized [id number] Closed 05/04/2020 05/04/2021 1 1 Encounter Details Date Type Department Care Team Description 08/18/2020 Office Visit Department of Marianela Braden, Keratosis Actinconstantino (Primary Dx); Dermatology in [place] Keratosis Seborrheic [place], [place] [address] [phone] Social History Tobacco Use Types Packs/Day Years [...] would like evaluated. MEDICAL HISTORY 1. Right sabianism: Basal cell carcinoma, status post Mohs surgery in June 2013 at [facility]. 2. Negative history for melanoma. 3. History of type 2 diabetes 4. Congestive heart failure ?? FAMILY HISTORY Brother with a history of melanoma ?? OBJECTIVE PHYSICAL EXAMINATION General: Awake, alert, in no acute distress, and with appropriate affect. Skin: Limited skin exam. Examination of the right sabianism reveals no clinical evidence for local recurrence [...] Depression Total Score: 1 12/02/2015 8:50 AM BROOMMAKING SUPERVISOR documented as of this encounter Care Teams Superintendent Commissary Relationship Specialty Start Date End Date Elsewhere, Pcp PCP - General Family Medicine 01/30/19 documented as of this encounter
--- OUTSIDE RECORDS SUMMARY | 2022-08-15 00:10 | XMS_ITS | Encounter Summary ---
:1945 Author Organization [facility] Address [address] [place] [address] Care Team Providers Name Role Phone Dary Newman APRN, C.N.P. Primary Care Provider [phone] Reason for Visit Reason Comments Skin Check Encounter Details Date Type Department Care Team Description 07/31/2018 Office Visit Department of Marianela Braden, Keratosis Actinic (Primary Dx); Dermatology in [place] Cancer Skin Basal Cell Personal History; [place], [place] [address] [facility] Nevi Multiple; [address] Ker[place] [phone] Social History Tobacco Use Types Packs/Day [...] I last saw the patient at the [facility] on 02/13/18. The patient has a history of basal cell carcinoma involving her right zoroastrianism status post Mohs surgery at [place] in June 2013. She also has a [...] HISTORY Basal cell carcinoma involving her right zoroastrianism status post Mohs surgery at [place] in June 2013 FAMILY HISTORY Brother has [...] a few seborrheic keratoses. Examinationof the right zoroastrianism/forehead reveals a scar with no evidence for [...] for skin cancer today. IMPRESSION/REPORT/PLAN #1 Right zoroastrianism: History of basal cell carcinoma status post Mohs surgery at [place] in June 2013 No evidence for recurrence [...] a total of 1 lesion with two 07-11-hrqbxx freeze-thaw cycles of liquid nitrogen cryotherapy.The patient [...] Dermatology Marianela Braden M.D. [address] [place], [place] [phone] (Wo rk) documented as of this encounter Visit Diagnoses Diagnosis Keratosis Actinic - Primary Cancer Skin Basal Cell Personal History Nevi Multiple Keratosis Seborrheic documented in this encounter Additional Health Concerns Assessment Noted Time PHQ-9 Depression Total Score: 1 12/02/2015 8:50 AM PLUMBER ASSISTANT documented as of this encounter Care Teams Supervising Librarian Relationship Specialty Start Date End Date Dary Newman APRN, C.N.P. PCP - General Internal Medicine 06/29/18 01/29/[address] [place] [phone] documented as of this encounter
--- OUTSIDE RECORDS SUMMARY | 2022-08-15 00:10 | XMS_ITS | Encounter Summary ---
:1945 Author Organization [facility] Address [address] [place] [address] Care Team Providers Name Role Phone Unavailable Primary Care Provider Unavailable Encounter Details Date Type Department Care Team Description 03/31/2017 Hospital Encounter HX [facility] Jairo Mix M.D. [address] [place] [address] (Wo rk) Social History Tobacco Use [...] Patient MRN #: Reason for Call: Message: [facility] called. They said they just received a fax regarding if the pt should be on both blood pressure meds Atenolol and a seconed Atenolol plus Chlorthalidone, but the fax was unreadable. Fax is [phone] to try to refax or preferably, please call for a verbal, incase their fax machine isn't working correctly. The dr line is [phone] Advice/Action: Source used: ( ) Verbalizes understanding [...] back cell phone number ( ) Source: [facility] POWERCHART Document Id: [id number] Miscellaneous - Brandin Kruger M.D. - 04/04/2017 [...] language for Healthcare discussion: _ Was an sprinkler helper used for this call? _ Other ( [...] mcmol/L (200 - 285 - ) Source: [facility] POWERCHART Document Id: [id number] Electronically signed by Conversion, [facility] Shredder/Granulator Operator [id number] at 04/17/2017 10:42 PM CDT Miscellaneous - [...] language for Healthcare discussion: _ Was an sprinkler helper used for this call? _ Other (x [...] Will send plain torsemide andplain atenolol to [facility]. Recheck with me in 1 month Results: [...] Lvl 9.7 mg/dL (8.8 - 10.3) Source: [facility] POWERCHART Document Id: [id number] Electronically signed by Conversion, [facility] Shredder/Granulator Operator [id number] at 04/17/2017 10:42 PM CDT documented in this encounter Plan of Treatment Upcoming Encounters Date Type Specialty Care Team Description 09/27/2022 Office Visit Dermatology Marianela Braden M.D. [address] [place] [phone] (Wo rk) documented as of [...] 285 POWERCHART GUCCI Comment: Test Performed by: [facility] 200 [place] [address] Specimen (Source) Anatomical Collection Method Collection Time [...] 15 MMOLL POWERCHART HXeGFR (MDRD) 60 >=60 [id number] POWERCHART eGFR Black/ >60 >=60 [id number] POWERCHART Glucose 142 (H) 70 - 139 [...] Depression Total Score: 1 12/02/2015 8:50 AM BULLET LUBRICATING MACHINE OPERATOR documented as of this encounter
--- OUTSIDE RECORDS SUMMARY | 2022-08-15 00:10 | XMS_ITS | Encounter Summary ---
:1945 Author Organization [facility] Address [address] [place] [address] Care Team Providers Name Role Phone Elsewhere, Pcp Primary Care Provider Unavailable Reason for Referral Outpatient (Routine) - Closed Specialty Diagnoses / Procedures Referred By Contact Refer red To Contact Dermatology Marianela Braden M.D . [facility] Region [address] [place] [address] Referral ID Status Reason Start Date Expiration Date Visits Requ ested Visits Authorized [id number] Closed 05/04/2020 05/04/2021 1 1 Scheduling Instructions Recheck lesion involving left lower leg Reason for Visit Reason Comments Follow-up Appointment Request (Routine) - Closed Specialty Diagnoses / Procedures Referred By Contact Refer red To Contact Dermatology Referral ID Status Reason Start Date Expiration Date Visits Requ ested Visits Authorized [id number] Closed 11/11/2019 11/10/2020 1 Encounter Details Date Type Department Care Team Description 05/04/2020 Office Visit Department of Marianela Braden, Keratosis Actinic (Primary Dx); Dermatology in [place] Keratosis Seborrheic; [place], [place] [address] [facility] Verrucal Keratosis [address] [place] [phone] Social History Tobacco Use Types Packs/Day Years [...] carcinoma status post Mohs surgery fromher right tenriism in June 2013 at [facility]. She denies any history for melanoma. Her brother has had melanoma. Allergies Allergen Reactions ??? Cat Dander Other (see comments) Runny nose itchy eyes ??? Pollen Extracts Other (see comments) Runny nose, itchy eyes MEDICAL HISTORY Basal cell carcinoma involving right tenriism status post Mohs surgery in June 2013 at [facility]. Negative history for melanoma. FAMILY HISTORY Positive family history for melanoma with brother having had melanoma OBJECTIVE PHYSICAL EXAMINATION General: Awake, alert, in no acute distress, and with appropriate affect. Skin: Examination of her face and left lower leg done in clinic today. Examination of her right tenriism reveals no evidence for recurrence of her [...] Office Visit Dermatology Marianela Braden M.D. [address] [place] [phone] (Wo rk) Scheduled Referrals Name Type Priority Associated Order Schedule Diagnoses Dermatology office Outpatient Referral Routine Ex pected: visit (clinic) 08/04/2020 (Approximate), Expires: 05/04/2023 documented as of this encounter Visit Diagnoses Diagnosis Keratosis Actinic - Primary Keratosis Seborrheic Verrucal Keratosis documented in this encounter Additional Health Concerns Assessment Noted Time PHQ-9 Depression Total Score: 1 12/02/2015 8:50 AM BLOCK ENGRAVER documented as of this encounter Care Teams Dump Grounds Checker Relationship Specialty Start Date End Date Elsewhere, Pcp PCP - General Family Medicine 01/30/19 documented as of this encounter
--- OUTSIDE RECORDS SUMMARY | 2022-08-15 00:10 | XMS_ITS | Encounter Summary ---
:1945 Author Organization [facility] Address [address] [place] [address] Care Team Providers Name Role Phone Elsewhere, Pcp Primary Care Provider Unavailable Reason for Visit Appointment Request (Routine) - Closed Specialty Diagnoses / Procedures Referred By Contact Refer red To Contact Dermatology Referral ID Status Reason Start Date Expiration Date Visits Requ ested Visits Authorized [id number] Closed 05/06/2019 05/05/2020 1 Encounter Details Date Type Department Care Team Description 05/15/2019 Office Visit Department of Mehrdad Fletcher Acti nate Dermatology in Fred Blanco M.D. (Primary Dx) [facility] ta [address] [facility] [address] [place] [phone] Social History Tobacco Use Types Packs/Day Years [...] history of??basal cell carcinoma involving her right catholic status post Mohs surgery at [facility] in June 2013. She denies a [...] 1. Basal cell carcinoma involving her right catholic status post Mohs surgery at [place] in June 2013 ?? FAMILY HISTORY Brother [...] Visit Dermatology Marianela Braden M.D. [address] [place] [phone] (Wo rk) documented as of this encounter Visit Diagnoses Diagnosis Keratosis Actinic - Primary documented in this encounter Additional Health Concerns Assessment Noted Time PHQ-9 Depression Total Score: 1 12/02/2015 8:50 AM YARROW GATHERER documented as of this encounter Care Teams Technician Helper Instrument Relationship Specialty Start Date End Date Elsewhere, Pcp PCP - General Family Medicine 01/30/19 documented as of this encounter
--- OUTSIDE RECORDS SUMMARY | 2022-08-15 00:10 | XMS_ITS | Encounter Summary ---
:1945 Author Organization [facility] Address [address] [place] [address] Care Team Providers Name Role Phone Naren Kruger M.D. Primary Care Provider Encounter Details Date Type Department Care Team Description 06/28/2017 Hospital Encounter HX [facility] Jairo Kruger M.D. [address] [place] [phone] (Wo yajaira) Social History Tobacco [...] Visit Dermatology Marianela Braden M.D. [address] [place], [place] [phone] (Wo rk) documented as of this encounter Visit Diagnoses Not on filedocumented in this encounter Additional Health Concerns Assessment Noted Time PHQ-9 Depression Total Score: 1 12/02/2015 8:50 AM FIGURE MODEL documented as of this encounter Care Teams Signal Fitter Relationship Specialty Start Date End Date Naren Kruger M.D. PCP - General 04/20/17 06/28/[address] [place] [address] documented as of this encounter
--- OUTSIDE RECORDS SUMMARY | 2022-08-15 00:10 | XMS_ITS | Encounter Summary ---
:1945 Author Organization [facility] Address [address] [place] [address] Care Team Providers Name Role Phone Elsewhere, Pcp Primary Care Provider Unavailable Reason for Referral Outpatient (Routine) - Closed Specialty Diagnoses / Procedures Referred By Contact Refer red To Contact Dermatology Marianela Braden M.D . [facility] [address] [place] [address] Referral ID Status Reason Start Date Expiration Date Visits Requ ested Visits Authorized [id number] Closed 07/29/2019 07/28/2020 1 1 Scheduling Instructions Recheck skin lesions in 3 months Reason for Visit Reason Comments Follow-up Appointment Request (Routine) - Closed Specialty Diagnoses / Procedures Referred By Contact Refer red To Contact Dermatology Referral ID Status Reason Start Date Expiration Date Visits Requ ested Visits Authorized [id number] Closed 04/30/2019 04/29/2020 1 Encounter Details Date Type Department Care Team Description 07/29/2019 Office Visit Department of Marianela Braden Nevi Multi ple (Primary Dx); Dermatology in [place]; [place], [place] [address] [facility]; [address] [place] [address] [facility] [place]; [place] [address] Cancer Skin Basal Cell Personal History [id number] [...] liquid nitrogen cryotherapy by Dr. Fletcher at [facility] on 05/15/19. She says this has resolved since then. The patient is also here today for a full skin cancer screening examination. When last seen by me on03/04/19, she had a shave biopsy of a lesion involving the distal nasal tip which came back as dilated telangiectasias. Back in January 2016, she also had a biopsy done at the [facility] for a lesion involving the left lower leg which was a verrucal keratosis. The patient has??a history of??basal cell carcinoma involving her right worship status post Mohs surgery at [facility] in June 2013. She denies a personal history of melanoma. Her brother has a history of melanoma. Allergies Allergen Reactions ??? Cat Dander Other (see comments) Runny nose itchy eyes ??? Pollen Extracts Other (see comments) Runny nose, itchy eyes PAST MEDICAL HISTORY 1. Basal cell carcinoma involving right worship, status post Mohs surgery at [facility] in June2013 2. Negative for melanoma [...] for actinic keratosis. Examination of the right worship reveals no evidence for recurrence of basal [...] a return visit for reassessment. #5 Right worship: History of basal cell carcinoma, status post Mohs surgery at [facility] in June 2013 No evidence for [...] Visit Dermatology Marianela Braden M.D. [address] [place], [place] [phone] (Wo rk) Scheduled Referrals [...] Depression Total Score: 1 12/02/2015 8:50 AM DENTAL PRACTITIONER documented as of this encounter Care Teams Collaborative Teacher Relationship Specialty Start Date End Date Elsewhere, Pcp PCP - General Family Medicine 01/30/19 documented as of this encounter
--- OUTSIDE RECORDS SUMMARY | 2022-08-15 00:10 | XMS_ITS | Encounter Summary ---
:1945 Author Organization [facility] Address [address] [place] [address] Care Team Providers Name Role Phone Elsewhere, Pcp Primary Care Provider Unavailable Reason for Visit Reason Comments Follow-up Appointment Request (Routine) - Closed Specialty Diagnoses / Procedures Referred By Contact Refer red To Contact Referral ID Status Reason Start Date Expiration Date Visits Requ ested Visits Authorized [id number] Closed 06/21/2021 06/21/2022 1 1 Encounter Details Date Type Department Care Team Description 09/13/2021 Office Visit Department of Marianela Braden, [facility] (Primary Dx); Dermatology in [place], [place] [address] [phone] Social History Tobacco Use Types Packs/Day Years [...] of basal cell carcinoma involving the right orthodoxy,??status post Mohs surgery in 2013 done elsewhere. She denies a personal history for melanoma. Her brother has had melanoma.She uses sunscreen. MEDICAL HISTORY 1. Right orthodoxy:??History of basal cell carcinoma,??status post Mohs surgery [...] 1left upper cheek Examination of the right orthodoxy reveals no evidence for recurrence of basal [...] diuretic. Follow up as needed. #5 Right orthodoxy:??History of basal cell carcinoma,??status post Mohs surgery [...] Electronically Signed: nay Virk. 09/13/2021. 11:12 AM SHAREPOINT ENGINEER. IMarianela M.D., personally performed the services described in this documentation. All medical record entries made by the scribe were at my direction and in my presence. I have reviewed the chart and discharge instructions (if applicable) and agree that the record reflects my personal performance and is accurate and complete. Marianela Braden M.D. EPOINT ENGINEER documented in this encounter Plan of Treatment Upcoming Encounters Date Type Specialty Care Team Description 09/27/2022 Office Visit Dermatology Marianela Braden M.D. [address] [place] [phone] (Wo rk) documented as of this encounter Visit Diagnoses Diagnosis [facility] - Primary [place] documented in this encounter Additional Health Concerns Assessment Noted Time PHQ-9 Depression Total Score: 1 12/02/2015 8:50 AM SHAREPOINT ENGINEER documented as of this encounter Care Teams Faucets Assembler Relationship Specialty Start Date End Date Elsewhere, Pcp PCP - General Family Medicine 01/30/19 documented as of this encounter
--- OUTSIDE RECORDS SUMMARY | 2022-08-15 00:10 | XMS_ITS | Encounter Summary ---
:1945 Author Organization [facility] Address [address] [place] [address] Care Team Providers Name Role Phone Naren Kruger M.D. Primary Care Provider Encounter Details Date Type Department Care Team Description 10/17/2017 Orders Only Department of Naren Kruger Diabetes Me llitus Type [facility] Internal Neris Bianchi 2 (HCC) (Primary Dx) Medicine in [address] [facility] [address] [place], [place] [phone] (Work) [phone] Social History Tobacco Use Types Packs/Day Years Used Date Smoking Tobacco: Former Sex Assigned at Date Recorded Not on file documented as of this encounter Plan of Treatment Upcoming Encounters Date Type Specialty Care Team Description 09/27/2022 Office Visit Dermatology Marianela Braden M.D. [address] [place], [place] [phone] (Wo rk) documented as of this encounter Visit Diagnoses Diagnosis Diabetes Mellitus Type 2 (HCC) - Primary documented in this encounter Additional Health Concerns Assessment Noted Time PHQ-9 Depression Total Score: 1 12/02/2015 8:50 AM LATHE SCALPER OPERATOR documented as of this encounter Care Teams Heater Tender Relationship Specialty Start Date End Date Naren Kruger M.D. PCP - General 04/20/17 06/28/18 [address] [place] [address] documented as of this encounter
--- OUTSIDE RECORDS SUMMARY | 2022-08-15 00:10 | XMS_ITS | Encounter Summary ---
:1945 Author Organization [facility] Address [address] [place] [address] Care Team Providers Name Role Phone Naren Kruger M.D. Primary Care Provider Encounter Details Date Type Department Care Team Description 06/28/2017 Hospital Encounter HX [facility] Jairo Kruger M.D. [address] [place] [phone] (Wo yajaira) Social History Tobacco [...] Dermatology Marianela Braden M.D. [address] [place], [place] [phone] (Wo rk) documented as of this encounter Visit Diagnoses Not on filedocumented in this encounter Additional Health Concerns Assessment Noted Time PHQ-9 Depression Total Score: 1 12/02/2015 8:50 AM DRILL GRINDER documented as of this encounter Care Teams Material Coordinator Relationship Specialty Start Date End Date Naren Kruger M.D. PCP - General 04/20/17 06/28/[address] [place] [phone] documented as of this encounter
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
--- OUTSIDE RECORDS SUMMARY | 2022-08-15 00:10 | XMS_ITS | Encounter Summary ---
:1945 Author Organization [facility] Address [address] [place] [address] Care Team Providers Name Role Phone Elsewhere, [...] Visit Dermatology Marianela Braden M.D. [address] [place], [place] [phone] (Wo rk) documented as [...] Depression Total Score: 1 12/02/2015 8:50 AM SNOW PLOW OPERATOR documented as of this encounter Care Teams Supervisor Electronics Inspection Relationship Specialty Start Date End Date Elsewhere, Pcp PCP - General Family Medicine 01/30/19 documented as of this encounter
--- OUTSIDE RECORDS SUMMARY | 2022-08-15 00:11 | XMS_ITS | Encounter Summary ---
:1945 Author Organization [facility] Address [address] [place] [address] Care Team Providers Name Role Phone Unavailable Primary Care Provider Unavailable Encounter Details Date Type Department Care Team Description 03/04/2015 Hospital Encounter HX [facility] INTERNMED Jairo Kruger M.D. [address] [place] [address] (Wo rk) Social History Tobacco Use [...] Kruger M.D. - 03/04/2015 10:13 AM CDT [id number] Frances presents today to basically go through [...] to look at her back. MEDICATIONS Per [facility] EMR. ALLERGIES Per [facility] EMR. SYSTEMS REVIEW Review of systems in all areas except as mentioned above is negative. PREVENTIVE SERVICES: Per [facility] EMR. Handwashing done prior to patient contact. PAST MEDICAL/SURGICAL HISTORY Per [facility] EMR. VITAL SIGNS Per [facility] EMR. PHYSICAL EXAMINATION ENT: Eyes: Conjunctivae and [...] simple disequilibrium. She does physical therapy in [place] so I will fill out a form to that effectand I will have her work with them for 6 to 8 weeks and I will see her in 6 weeks to assess the progress of physical therapy. She was comfortable with that. Brandin Kruger M.D./cipriano Electronically Signed By: BRANDIN KRUGER MD On: 03/04/2015 11:54 AM Source: [facility] MHSDOLBEYNONRADSYS Document Id: [id number] documented in this encounter Miscellaneous Notes Telephone [...] the results. Please call the pt at [phone] Message: Advice/Action: Source used: ( ) Verbalizes [...] back cell phone number ( ) [facility] Document Id: [id number] Telephone Encounter - Conversion, Historical Provider Ser - 05/07/2015 12:39 PM CDT *Phone Message/Dr. Brandin Kruger Document Contains Addenda Addendum by IRVIN SALINAS LPN on 07 May 2015 13:00:44 CDT Daphne called with faxed progress notes From: NAOMI LOWE ( [place] [facility]mod[facility] Consultant) To: Brandin Kruger Nurse; Sent: 05/07/2015 12:39:27 CDT Subject: *Phone Message/Dr. Brandin Kruger Caller is: ( ) Patient ( ) Mother ( ) Father ( ) Spouse ( ) Daughter ( ) Son ( ) Pharmacy ( x ) Other: Daphne from [facility] in [facility] Physician: Dr. Brandin Kruger Patient MRN #: Reason for Call: Message: Indigo Daphne is checking to see if you received the progress notes on this patient that they sent to you. B Patient has an appointment with you at 1:30 today. A R Please call Daphne, or whoever answers, at [phone] and let them know if you received [...] cell phone number ( ) Source: [facility] [employer] Document Id: [id number] Miscellaneous - Brandin Kruger M.D. - 03/04/2015 10:44 AM CDT Ambulatory Patient Summary [address] [id number] Visit Information Name: FRANCES HAGER [facility] Number: [id number] Current Date: 03/04/2015 10:43:59 Physicians [...] diabetes and lists emergency contact numbers ?? [phone] Ana [facility], [address] [place] [address], [place] [address]. All rights reserved. This information is not intended as a substitute for professional medical care. Always follow your healthcare professional's instructions. Your Goals/Additional instructions: This document has images extracted. Please consider using [facility] for all your patient education needs. Source: [facility] POWERCHART Document Id: [id number] Miscellaneous - Brandin Kruger M.D. - 03/04/2015 10:43 AM CDT Ambulatory Discharge Medication List [address] [id number] Visit Information Name: FRANCES HAGER [facility] Number: [id number] Visit Date: 03/04/2015 10:43:57 Attending [...] MD Signed On:04-MAR-2015 10:42:55 Additional Information: Source: [facility] POWERCHART Document Id: [id number] Miscellaneous - Irvin Salinas L.PLoriNLori - 03/04/2015 10:24 AM CDT Adult Swedish Masseuse Intake/History Adult Swedish Masseuse Intake/History Entered On: 03/04/2015 10:28 CDT Performed [...] Index : 36.72 kg/m2 SALINAS, IRVIN LENNOX WHARF ATTENDANT - 03/04/2015 10:24 CDT General Info Information Given By : Patient Languages : Hebrew Is Patient Female and 13-50 no hysterectomy : IRVIN Irizarry WHARF ATTENDANT - 03/04/2015 10:24 CDT Subjective Pain Symptoms : No IRVIN SALINAS WHARF ATTENDANT - 03/04/2015 10:24 CDT Dependent Habits Tobacco Use/Currently Using : No Exposure to Tobacco Smoke : Other: former smoker Smoking Status : Never smoker IRVIN SALINAS [facility] - 03/04/2015 10:24 CDT Caffeine Use Grid Caffeine Use : Current Type : Coffee IRVIN SALINAS WHARF ATTENDANT - 03/04/2015 10:24 CDT Recreational Drug Use Grid Drug Use : None IRVIN SALINAS [facility] 03/04/2015 10:24 CDT ID Screen Drug Resistant Organism : Yes Travel Within Last 21 Days : No Contact with someone with Ebola : IRVIN Irizarry RAE WHARF ATTENDANT 03/04/2015 10:24 CDT Source: [employer] Document Id: [id number] CDT!39 documented in this encounter Plan of Treatment Upcoming Encounters Date Type Specialty Care Team Description 09/27/2022 Office Visit Dermatology Marianela Braden M.D. [address] [place] [phone] (Wo rk) documented as of this encounter Visit Diagnoses Not on filedocumented in this encounter Additional Health Concerns Assessment Noted Time PHQ-9 Depression Total Score: 3 05/05/2014 7:55 AM CDT documented as of this encounter
--- OUTSIDE RECORDS SUMMARY | 2022-08-15 00:11 | XMS_ITS | Encounter Summary ---
:1945 Author Organization [facility] Address [address] [place] [address] Care Team Providers Name Role Phone Unavailable Primary Care Provider Unavailable Encounter Details Date Type Department Care Team Description 10/08/2014 Hospital Encounter HX NO MAPPING Fabricio Kruger M.D. [address] [place] [phone] (Wo yajaira) Social History Tobacco [...] Care Team Description 09/27/2022 Office Visit Dermatology Marinaela Braden M.D. [address] [place], [place] [phone] (Wo rk) documented as of this encounter Visit Diagnoses Not on filedocumented in this encounter Additional Health Concerns Assessment Noted Time PHQ-9 Depression Total Score: 3 05/05/2014 7:55 AM CDT documented as of this encounter
--- OUTSIDE RECORDS SUMMARY | 2022-08-15 00:11 | XMS_ITS | Encounter Summary ---
:1945 Author Organization [facility] Address [address] [place] [address] Care Team Providers Name Role Phone Unavailable Primary Care Provider Unavailable Encounter Details Date Type Department Care Team Description 12/23/2014 Hospital Encounter HX [facility] Iona Garcia, FREDIS, C.N.P. [address] [place] [address] (Wo rk) Social History Tobacco Use Types Packs/Day Years Used Date Smoking Tobacco: Never Assessed Sex Assigned at Date Recorded Not on file documented as of this encounter Last Filed Vital Signs Vital Sign Reading Time Taken Comments Blood Pressure 136/68 12/23/2014 9:40 AM PHOTOGRAPHIC AIDE Pulse 68 12/23/2014 9:36 AM PHOTOGRAPHIC AIDE Temperature - - Respiratory Rate 20 12/23/2014 9:36 AM PHOTOGRAPHIC AIDE Oxygen Saturation - - Inhaled Oxygen Concentration - - Weight 93.4 kg (205 lb 14.6 oz) 12/23/2014 9:36 AM PHOTOGRAPHIC AIDE Height 160 cm (5' 2.99) 12/23/2014 9:40 AM PHOTOGRAPHIC AIDE Body Mass Index 36.48 12/23/2014 9:36 AM PHOTOGRAPHIC AIDE documented in this encounter Medications at Time of Discharge Medication Sig Dispensed Refills Start Date End Date aspirin [address] tablet Take 1 tablet by mouth 0 03/14/2014 daily. documented as of this encounter Progress Notes Argelia Garcia, FREDIS, C.N.P. - 12/23/2014 9:14 AM CST [id number] CHIEF COMPLAINT/REASON FOR VISIT Diabetes type 2. [...] had dilated eye exam this summer in [place]. Will call for record of that. MEDICATIONS [...] request record of that visit from Dr. Aguila in [place]. 4. Diet was discussed at length and all of her questions were answered. Total time spent with the patient 25 minutes, 20 minutes of it counseling and coordinating care including diabetes education on diet and blood glucose testing. Argelia Garcia CNP/cipriano Electronically Signed By: ARGELIA GARCIA CNP On: 12/23/2014 12:40 PM Source: [facility] MHSDOLBEYNONRADSYS Document Id: [id number] OGRAPHIC AIDE documented in this encounter Nursing Notes Argelia [...] or tender areas of the foot ?? [phone] [facility], [address] [place] [address]. All rights reserved. This information is not intended as a substitute for professional medical care. Always follow your healthcare professional's instructions. Source[facility] Document Id: [id number] OGRAPHIC AIDE Argelia Garcia APRN, C.N.P. - 12/23/2014 10:10 AM CST Ambulatory Patient Education The following Patient Education Materials have been given to the patient: Patient Education Materials: [facility] Document Id: [id number] OGRAPHIC AIDE documented in this encounter Miscellaneous Notes Miscellaneous - Argelia Garcia APRN, C.N.P. - 12/23/2014 10:11 AM PHOTOGRAPHIC AIDE Ambulatory Patient Summary [address] [id number] Visit Information Name: FRANCES HAGER [facility] Number: [id number] Current Date: 12/23/2014 10:11:07 Physicians [...] or tender areas of the foot ?? [phone] [facility], [address] [place] [address]. All rights reserved. This information is not intended as a substitute for professional medical care. Always follow your healthcare professional's instructions. Your Goals/Additional instructions: Source: [facility] POWERCHART Document Id: [id number] OGRAPHIC AIDE Miscellaneous - Argelia Garcia APRN, C.N.P. - 12/23/2014 10:11 AM PHOTOGRAPHIC AIDE Ambulatory Discharge Medication List [address] [id number] Visit Information Name: FRANCES HAGER [facility] Number: [id number] Visit Date: 12/23/2014 10:11:05 Attending Provider: ARGELIA GARCIA [facility] Primary Care Provider: BRANDIN KRUGER [...] of emergency. Electronically Signed By: ARGELIA GARCIA [facility] Signed On:23-DEC-2014 10:10:29 Additional Information: Source: [facility] POWERCHART Document Id: [id number] OGRAPHIC AIDE Miscellaneous - Argelia Garcia APRN, C.N.P. - 12/23/2014 10:07 AM PHOTOGRAPHIC AIDE Quality Measures Quality Measures Entered On: 12/23/2014 10:07 PHOTOGRAPHIC AIDE Performed On: 12/23/2014 10:07 PHOTOGRAPHIC AIDE by ARGELIA GARCIA CNP Diabetes Date of Last Foot Exam : 12/23/2014 PHOTOGRAPHIC AIDE Date of Last Diabetes Education : 12/23/2014 PHOTOGRAPHIC AIDE ARGELIA GARCIA CNP - 12/23/2014 10:07 PHOTOGRAPHIC AIDE Foot Exam Grid Left foot exam Right foot exam Dorsalis Pedis Pulse : Normal Normal Capillary Refill : Less than 3 seconds Less than 3 seconds 10 gm Monofilament Sensation Check : Intact Intact ARGELIA GARCIA CNP - 12/23/2014 10:07 PHOTOGRAPHIC AIDE ARGELIA GARCIA CNP - 12/23/2014 10:07 PHOTOGRAPHIC AIDE Source: [facility] [employer] Document Id: [id number] PHOTOGRAPHIC AIDE!13 OGRAPHIC AIDE Jimmie - Blanca Fitch L.P.NLori - 12/23/2014 9:40 AM CST Ambulatory Vitals Height Weight Ambulatory Vitals Height Weight Entered On: 12/23/2014 9:40 PHOTOGRAPHIC AIDE Performed On: 12/23/2014 9:40 PHOTOGRAPHIC AIDE by BLANCA FITCH LPN Vitals/Ht/Wt Systolic Blood Pressure : 136 mmHg Diastolic Blood Pressure : 68 mmHg NIBP Mean : 91 mmHg BP Location : Right upper extremity Blood Pressure Cuff Size : Large Height : 160 cm(Converted to: 5 ft 3 inch(es), 63 inch(es)) BLANCA FITCH LPN - 12/23/2014 9:40 PHOTOGRAPHIC AIDE Source: [facility] [employer] Document Id: [id number] PHOTOGRAPHIC AIDE!8 OGRAPHIC AIDE Miscellaneous - Blanca Fitch L.P.NLori - 12/23/2014 9:36 AM CST Adult Watchmaker Apprentice Intake/History Adult Watchmaker Apprentice Intake/History Entered On: 12/23/2014 9:38 PHOTOGRAPHIC AIDE Performed On: 12/23/2014 9:36 PHOTOGRAPHIC AIDE by BLANCA FITCH LPN Intake Chief Complaint [...] kg/m2 BLANCA FITCH LPN - 12/23/2014 9:36 PHOTOGRAPHIC AIDE General Info Information Given By : Patient Preferred Communication Mode : Verbal Languages : Martiniquais Is Patient Female and 13-50 no hysterectomy : No BLANCA FITCH LPN - 12/23/2014 9:36 PHOTOGRAPHIC AIDE Subjective Pain Symptoms : No BLANCA FITCH LPN - 12/23/2014 9:36 PHOTOGRAPHIC AIDE Dependent Habits Tobacco Use/Currently Using : No Exposure to Tobacco Smoke : Other: former smoker Smoking Status : Former smoker BLANCA FITCH LPN - 12/23/2014 9:36 PHOTOGRAPHIC AIDE Caffeine Use Grid Caffeine Use : Current Type : Coffee BLANCA FITCH LPN - 12/23/2014 9:36 PHOTOGRAPHIC AIDE Recreational Drug Use Grid Drug Use : None BLANCA FITCH LPN - 12/23/2014 9:36 PHOTOGRAPHIC AIDE ID Screen Drug Resistant Organism : Yes Travel Within Last 21 Days : No BLANCA FITCH LPN - 12/23/2014 9:36 PHOTOGRAPHIC AIDE [facility] [employer] Document Id: [id number] PHOTOGRAPHIC AIDE!39 OGRAPHIC AIDE Miscellaneous - Blanca Fitch L.P.NLori - 06/18/2014 11:43 AM CDT Quality Measures Quality Measures Entered On: 12/23/2014 11:44 PHOTOGRAPHIC AIDE Performed On: 06/18/2014 11:43 CDT by BLANCA FITCH LPN Diabetes Date of Last Eye Exam : 06/18/2014 CDT BLANCA FITCH LPN - 12/23/2014 11:43 PHOTOGRAPHIC AIDE Source: [facility] POWERCHART Document Id: [id number] PHOTOGRAPHIC AIDE!3 OGRAPHIC AIDE documented in this encounter Plan of Treatment Upcoming Encounters Date Type Specialty Care Team Description 09/27/2022 Office Visit Dermatology Marianela Braden M.D. [address] [place], [place] [phone] (Wo rk) documented as of this encounter Visit Diagnoses Not on filedocumented in this encounter Additional Health Concerns Assessment Noted Time PHQ-9 Depression Total Score: 3 05/05/2014 7:55 AM CDT documented as of this encounter
--- OUTSIDE RECORDS SUMMARY | 2022-08-15 00:11 | XMS_ITS | Encounter Summary ---
:1945 Author Organization [facility] Address [address] [place] [address] Care Team Providers Name Role Phone Unavailable Primary Care Provider Unavailable Encounter Details Date Type Department Care Team Description 07/08/2014 Hospital Encounter HX [facility] FBHB INTERNMED Jairo Kruger M.D. [address] [place] [address] 021 (Wo rk) Social History Tobacco Use [...] Kruger M.D. - 07/08/2014 9:40 AM CDT [id number] Patient presents today. We have a lot of things to do. She had a basal cell carcinoma removed from her right yarsani area, and there were continuous and interrupted [...] some changes in the meds. MEDICATIONS Per [facility] EMR. ALLERGIES Per [facility] EMR. SYSTEMS REVIEW Review of systems in all areas except as mentioned above is negative. PREVENTIVE SERVICES: Per [facility] EMR. Handwashing done prior to patient contact. PAST MEDICAL/SURGICAL HISTORY Per [facility] EMR. VITAL SIGNS Per [facility] EMR. PHYSICAL EXAMINATION HEENT: She had a large wound in her right yarsani area which had both interrupted and continuous [...] KRUGER MD On: 07/08/2014 11:31 AM Source: [facility] MHSDOLBEYNONRADSYS Document Id: [id number] documented in this encounter Miscellaneous Notes Miscellaneous - Irvin Salinas L.P.N. - 07/08/2014 10:01 AM CDT Adult Horse Farm Manager Intake/History Adult Horse Farm Manager Intake/History Entered On: 07/08/2014 10:04 CDT Performed [...] Clinic : 93.5 kg IRVIN SALINAS RAE FIELD COORDINATOR - 07/08/2014 10:01 CDT General Info Information Given By : Patient Languages : Malagasy Is Patient Female and 13-50 no hysterectomy : IRVIN Irizarry FIELD COORDINATOR - 07/08/2014 10:01 CDT Subjective Pain Symptoms : IRVIN Irizarry FIELD COORDINATOR - 07/08/2014 10:01 CDT Dependent Habits Tobacco Use/Currently Using : No Exposure to Tobacco Smoke : Other: former smoker Smoking Status : Never smoker Alcohol Use : IRVIN Irizarry RAE FIELD COORDINATOR - 07/08/2014 10:01 CDT Caffeine Use Grid Caffeine Use : Current Type : Coffee IRVIN SALINAS RAE FIELD COORDINATOR - 07/08/2014 10:01 CDT Recreational Drug Use Grid Drug Use : None IRVIN SALINAS [facility] - 07/08/2014 10:01 CDT Source: [facility] Active Implants Document Id: [id number] CDT!3 Telephone Encounter - Alexsandra Gavin R.N. [...] 12:30:30 CDT From: LEAH ADAM DO To: [facility] Nurse auto body repair teacher; Sent: 05/30/2014 12:30:30 CDT Subject: RE: Provider Advice within 4 hours from the Nurse Call Center. This rash could be due to anything. She should be seen by a doctor today to get advice. From: ALEXSANDRA GAVIN RN ([facility] Nurse auto body repair teacher) To: LEAH ADAM DO; Cc: [facility] Nurse auto body repair teacher; Sent: 05/30/2014 10:36:16 CDT Subject: Provider Advice [...] out of the office until Monday. Calling from:[phone] NOTE: To see complete documentation of the patients symptoms, view the Expert RN note created on 05/30/14. This information is located in [employer]: 1. Go to Notes 2. Select Messages 3. Select Nurse Call Center Note 4. Find the correct date and click on it. Note will appear in viewing area 5. Please respond back to the [facility] Nurse Call Center Pool Source: [facility] POWERCHART Document Id: [id number] Electronically signed by Antonette, [facility] Library Attendant [id number] at 04/04/2017 11:05 AM CDT documented in this encounter Plan of Treatment Upcoming Encounters Date Type Specialty Care Team Description 09/27/2022 Office Visit Dermatology Marianela Braden M.D. [address] [place], [place] [phone] (Wo rk) documented as of this encounter Visit Diagnoses Not on filedocumented in this encounter Additional Health Concerns Assessment Noted Time PHQ-9 Depression Total Score: 3 05/05/2014 7:55 AM CDT documented as of this encounter
--- OUTSIDE RECORDS SUMMARY | 2022-08-15 00:11 | XMS_ITS | Encounter Summary ---
:1945 Author Organization [facility] Address [address] [place] [address] Care Team Providers Name Role Phone Unavailable Primary Care Provider Unavailable Encounter Details Date Type Department Care Team Description 10/08/2014 Hospital Encounter HX [facility] FBHB INTERNMED Jairo Kruger M.D. [address] [place] [address] (Wo rk) Social History Tobacco Use Types Packs/Day Years Used Date Smoking Tobacco: Never Assessed Sex Assigned at Date Recorded Not on file documented as of this encounter Last Filed Vital Signs Vital Sign Reading Time Taken Comments Blood Pressure 128/70 10/08/2014 9:28 AM BAG MACHINE TENDER Pulse 60 10/08/2014 9:28 AM BAG MACHINE TENDER Temperature - - Respiratory Rate - - Oxygen Saturation - - Inhaled Oxygen Concentration - - Weight 91 kg (200 lb 9.9 oz) 10/08/2014 9:28 AM BAG MACHINE TENDER Height 160 cm (5' 2.99) 10/08/2014 9:28 AM BAG MACHINE TENDER Body Mass Index 35.55 10/08/2014 9:28 AM BAG MACHINE TENDER documented in this encounter Medications at Time of Discharge Medication Sig Dispensed Refills Start Date End Date aspirin [address] tablet Take 1 tablet by mouth 0 03/14/2014 daily. documented as of this encounter Progress Notes Brandin Kruger M.D. - 10/08/2014 9:24 AM CST [id number] Document Contains Addenda REVISION HISTORY October 08, [...] will give thatto her today. MEDICATIONS Per [facility] EMR. ALLERGIES Per [facility] EMR. SYSTEMS REVIEW Review of systems in all areas except as mentioned above is negative. PREVENTIVE SERVICES: Per [facility] EMR. Handwashing done prior to patient contact. PAST MEDICAL/SURGICAL HISTORY Per [facility] EMR. VITAL SIGNS Per [facility] EMR. PHYSICAL EXAMINATION EENT: Conjunctivae [...] KRUGER MD On: 10/08/2014 02:08 PM Source: [facility] MHSDOLBEYNONRADSYS Document Id: [id number] MACHINE TENDER documented in this encounter Miscellaneous Notes Telephone Encounter - Conversion, Historical Provider Ser - 10/23/2014 12:40 PM CST *Phone Message/Dr. Brandin Kruger Document Contains Addenda Addendum by IRVIN SALINAS LPN on 23 October 2014 13:09:35 BAG MACHINE TENDER patient called will do labs day of appt Addendum by BRANDIN KRUGER MD on 23 October 2014 13:01:42 BAG MACHINE TENDER From: BRANDIN KRUGER MD To: GRZEGORZ Kruger Nurse; Sent: 10/23/2014 13:01:42 BAG MACHINE TENDER Subject: RE: *Phone Message/Dr. Brandin Kruger cannot do that on medicare insurance. I am not sure what she wants re bladder issues. Addendum by IRVIN SALINAS LPN on 23 October 2014 12:58:55 BAG MACHINE TENDER From: IRVIN SALINAS LPN ( Brandin Kruger Nurse) To: BRANDIN KRUGER MD; Sent: 10/23/2014 12:58:55 BAG MACHINE TENDER Subject: FW: *Phone Message/Dr. Brandin Kruger From: NAOMI LOWE ([facility] Teacher Adult Education) To: Brandin Kruger Nurse; Sent: 10/23/2014 12:40:46 BAG MACHINE TENDER Subject: *Phone Message/Dr. Brandin Kruger Caller is: [...] A R Please call patient back at [phone] to advise. Advice/Action: Source used: ( ) [...] cell phone number ( ) Source: [facility] Document Id: [id number] Brandin Malik M.D. - 10/09/2014 1:00 PM CST Results Notification From: BRANDIN KRUGER MD Sent: 10/09/2014 13:00:35 BAG MACHINE TENDER ! Show up: 10/09/2014 13:00:35 BAG MACHINE TENDER Subject: Results Notification Actions: Notify patient of results Reminder Comments: nothing significant Results: Date Result Type Ind Result Name MBO Review Culture Urine Source: [facility] [employer]park Document Id: [id number] Electronically signed by Conversion, [facility] Cementer Hand [id number] at 04/04/2017 7:52 PM CDT Brandin Malik M.D. - 10/08/2014 10:10 AM CST Results Notification Document Contains Addenda Addendum by IRVIN SALINAS LPN on 08 October 2014 13:50:48 BAG MACHINE TENDER called with results From: BRANDIN KRUGER MD Sent: 10/08/2014 10:10:32 BAG MACHINE TENDER ! Show up: 10/08/2014 10:10:32 BAG MACHINE TENDER Subject: Results Notification Actions: Notify patient of [...] Est (*) Trace (Negative - ) Source: [facility] POWERCHART Document Id: [id number] Electronically signed by Antonette [facility] Cementer Hand [id number] at 04/04/2017 7:52 PM CDT Miscellaneous - Brandin Kruger M.D. - 10/08/2014 9:47 AM CST Ambulatory Patient Summary [address] [id number] Visit Information Name: FRANCES HAGER [facility] Number: [id number] Current Date: 10/08/2014 09:47:14 Physicians [...] diabetes and lists emergency contact numbers ?? [phone] Ana Gilliam, [address] [place] [address]. All rights reserved. This information is not intended as a substitute for professional medical care. Always follow your healthcare professional's instructions. Your Goals/Additional instructions: This document has images extracted. Please consider using [employer] for all your patient education needs. Source: [facility] POWERCHART Document Id: [id number] MACHINE TENDER Miscellaneous - Brandin Kruger M.D. - 10/08/2014 9:47 AM CST Ambulatory Discharge Medication List [address] [id number] Visit Information Name: FRANCES HAGER [facility] Number: [id number] Visit Date: 10/08/2014 09:47:12 Attending [...] MD Signed On:08-OCT-2014 09:46:25 Additional Information: Source: [facility] POWERCHART Document Id: [id number] MACHINE TENDER Miscellaneous - Irvin Salinas L.P.N. - 10/08/2014 9:28 AM CST Adult Vehicle Operator Intake/History Adult Vehicle Operator Intake/History Entered On: 10/08/2014 9:31 BAG MACHINE TENDER Performed On: 10/08/2014 9:28 BAG MACHINE TENDER by IRVIN SALINAS LPN Intake Chief Complaint [...] kg/m2 IRVIN SALINAS LPN - 10/08/2014 9:28 BAG MACHINE TENDER General Info Information Given By : Patient Languages : Sudanese Is Patient Female and 13-50 no hysterectomy : No IRVIN SALINAS [facility] - 10/08/2014 9:28 BAG MACHINE TENDER Subjective Pain Symptoms : No IRVIN SALINAS [facility] - 10/08/2014 9:28 BAG MACHINE TENDER Dependent Habits Tobacco Use/Currently Using : No Exposure to Tobacco Smoke : Other: former smoker Smoking Status : Never smoker IRVIN SALINAS [facility] - 10/08/2014 9:28 BAG MACHINE TENDER Caffeine Use Grid Caffeine Use : Current Type : Coffee IRVIN SALINAS [facility] - 10/08/2014 9:28 BAG MACHINE TENDER Recreational Drug Use Grid Drug Use : None IRVIN SALINAS [facility] - 10/08/2014 9:28 BAG MACHINE TENDER ID Screen Drug Resistant Organism : Yes Travel Within Last 21 Days : IRVIN Irizarry [facility] - 10/08/2014 9:28 BAG MACHINE TENDER Source: [facility] POWERCHART Document Id: [id number] BAG MACHINE TENDER!37 MACHINE TENDER documented in this encounter Plan of Treatment Upcoming Encounters Date Type Specialty Care Team Description 09/27/2022 Office Visit Dermatology Marianela Braden M.D. [address] [place] [address] [phone] (Wo rk) documented as of this encounter Procedures Procedure Name Priority Date/Time Associated Diagnosis Comme nts BACTERIAL CULTURE, Routine 10/08/2014 10:31 AM Re sults for this AEROBIC, URINE BAG MACHINE TENDER procedure are in the results section. URINALYSIS, Routine 10/08/2014 10:04 AM Results for this MIDSTREAM, WITH BAG MACHINE TENDER procedure ar e in CULTURE IF the results INDICATED section. documented in this encounter Results Bacterial Culture, Aerobic, Urine (10/08/2014 10:31 AM BAG MACHINE TENDER) [facility] Method Time Signature Bacterial POWERCHART Culture, Aerobic, Urine HXFinal Mixed alex. No POWERCHART further studies unless notified. [facility] POWERCHART Microbiology laboratory [phone] Specimen Anatomical Collection Method Collection Time Receive d Time (Source) Location / / Volume Laterality Micro Spec 10/08/2014 10:31 10/08/2014 AM BAG MACHINE TENDER 10:31 AM BAG MACHINE TENDER Brandin Kruger M.D. LAB MICROBIOLOGY - GENERAL O RDERABLES Performing Organization Address City/State/ZIP Code Phon e Number POWERCHART (ABNORMAL) Urinalysis, Midstream, with culture if indicated (10/08/2014 10:04 AM BAG MACHINE TENDER) [facility] Method Time Signature Source Clean Void POWERCHART Urine HXUr Color Yellow Colorless POWERCHART Clarity Clear Clear POWERCHART Glucose Negative Negative POWERCHART MGDL HXBILIRUBIN Negative Negative POWERCHART Ketones, QL(U) Negative Negative POWERCHART MGDL Specific 1.020 POWERCHART [place], POCT, U HXBLOOD Trace (A) Negative POWERCHART [...] / Volume Laterality Urine 10/08/2014 10:04 AM BAG MACHINE TENDER Brandin Kruger M.D. LAB URINE ORDERABLES Performing Organization Address [facility] [address] [facility] Phon e Number POWERCHART documented in this encounter Visit Diagnoses Not on filedocumented in this encounter Additional Health Concerns Assessment Noted Time PHQ-9 Depression Total Score: 3 05/05/2014 7:55 AM CDT documented as of this encounter
--- OUTSIDE RECORDS SUMMARY | 2022-08-15 00:11 | XMS_ITS | Encounter Summary ---
:1945 Author Organization [facility] Address [address] [place] [address] Care Team Providers Name Role Phone Unavailable Primary Care Provider Unavailable Encounter Details Date Type Department Care Team Description 08/05/2014 Hospital Encounter HX [facility] FBHB INTERNMED Jairo Kruger M.D. [address] [place] [address] 021 (Wo rk) Social History Tobacco Use [...] Kruger M.D. - 08/05/2014 9:13 AM CDT [id number] She presents for recheck. She has not had her surgery as that is happening in 9 days. She is going to have a left shoulder rotator cuff same-day surgery up in [place]. We have done the preop for that [...] that point in detail today. MEDICATIONS Per [facility] EMR. ALLERGIES Per [facility] EMR. SYSTEMS REVIEW Review of systems in all areas except as mentioned above is negative. PREVENTIVE SERVICES: Per [facility] EMR. Handwashing done prior to patient contact. PAST MEDICAL/SURGICAL HISTORY Per [facility] EMR. VITAL SIGNS Per [facility] EMR. PHYSICAL EXAMINATION She walked with [...] is the way she was diagnosed at [place] and I am complete concurrence with that. Time component 25 minutes, the majority counseling. Brandin Kruger M.D./cipriano Electronically Signed By: BRANDIN KRUGER MD On: 08/05/2014 12:41 PM Source: [facility] MHSDOLBEYNONRADSYS Document Id: [id number] documented in this encounter Miscellaneous Notes Telephone [...] Subject: FW: *Phone Message From: KONRAD HAJI ([facility] Upholstery Restorer) To: GRZEGORZ Kruger Nurse; Sent: 08/20/2014 10:07:05 [...] her back and let her know at [phone] Message: Advice/Action: Source used: ( ) Verbalizes [...] back cell phone number ( ) Source: [facility] POWERCHART Document Id: [id number] Miscellaneous - Brandin Kruger M.D. - 08/05/2014 9:54 AM CDT Ambulatory Patient Summary [address] [id number] Visit Information Name: FRANCES HAGER [facility] Number: [id number] Current Date: 08/05/2014 09:54:23 Physicians [...] staff. For more information, contact the National [place] on Mental Illness at [phone] or visit [email or web address]. Get Prompt Medical Attention if any of the following occur: ?? Worsening depression or anxiety ?? Feeling out of control ?? Thoughts of harming yourself or another ?? Being unable to care for your self ?? [id number] [facility], [address] [place] [address], [place] [address]. All rights reserved. This information is not intended as a substitute for professional medical care. Always follow your healthcare professional's instructions. Your Goals/Additional instructions: Source: [facility] POWERCHART Document Id: [id number] Miscellaneous - Brandin Kruger M.D. - 08/05/2014 9:54 AM CDT Ambulatory Discharge Medication List [address] [id number] Visit Information Name: FRANCES HAGER [facility] Number: [id number] Visit Date: 08/05/2014 09:54:20 Attending [...] MD Signed On:05-AUG-2014 09:52:41 Additional Information: Source: [facility] POWERCHART Document Id: [id number] Miscellaneous - Irvin Salinas LLoriPLoriN. - 08/05/2014 9:19 AM CDT Adult Banquet Food Server Intake/History Adult Banquet Food Server Intake/History Entered On: 08/05/2014 9:21 CDT Performed [...] Clinic : 95 kg SALINASDARIEN CHAMPIONPIERO [facility] - 08/05/2014 9:19 CDT General Info Information Given By : Patient Languages : Russian Is Patient Female and 13-50 no hysterectomy : No SALINASIRVIN FRANCOIS [facility] - 08/05/2014 9:19 CDT Subjective Pain Symptoms : Taty SALINASIRVIN FRANCOIS [facility] - 08/05/2014 9:19 CDT Dependent Habits Tobacco Use/Currently Using : No Exposure to Tobacco Smoke : Other: former smoker Smoking Status : Never smoker Alcohol Use : Taty SWEENEYDARIEN FRANCOISPIERO [facility] - 08/05/2014 9:19 CDT Caffeine Use Grid Caffeine Use : Current Type : Coffee IRVIN SALINAS [facility] - 08/05/2014 9:19 CDT Recreational Drug Use Grid Drug Use : None SALINAS, IRVINPIERO [facility] - 08/05/2014 9:19 CDT Source: [employer] Document Id: [id number] CDT!33 documented in this encounter Plan of Treatment Upcoming Encounters Date Type Specialty Care Team Description 09/27/2022 Office Visit Dermatology Marianela Braden M.D. [address] [place], [place] [phone] (Wo rk) documented as of this encounter Visit Diagnoses Not on filedocumented in this encounter Additional Health Concerns Assessment Noted Time PHQ-9 Depression Total Score: 3 05/05/2014 7:55 AM CDT documented as of this encounter
--- OUTSIDE RECORDS SUMMARY | 2022-08-15 00:11 | XMS_ITS | Encounter Summary ---
:1945 Author Organization [facility] Address [address] [place] [address] Care Team Providers Name Role Phone Unavailable Primary Care Provider Unavailable Encounter Details Date Type Department Care Team Description 07/29/2014 Hospital [facility] Jairo Kruger M.D. [address] [place] [address] 021 (Wo rk) Social History Tobacco Use [...] Kruger M.D. - 07/29/2014 8:22 AM CDT [id number] This is a preoperative examination for a rotator cuff repair of the left arm under the aegis of Dr. Andrew Brewer, performed in [facility] on August 08, 2014. MEDICATIONS 1. Exelon [...] Mouth without erythema or exudate. She has alturas dentition top and bottom. She is Mallampati [...] take no medicines. Simply present to the [facility] with nothing to eat or drink. 5. [...] KRUGER MD On: 07/29/2014 10:03 AM Source: [facility] MHSDOLBEYNONRADSYIndigo Document Id: [id number] documented in this encounter Miscellaneous Notes Miscellaneous - Brandin Kruger M.D. - 07/30/2014 12:58 PM CDT Results [...] Result Name MBO Review Culture Urine Source: [facility] POWERCHART Document Id: [id number] Electronically signed by Conversion, [facility] Inspector Mechanical [id number] at 04/04/2017 5:34 PM CDT Miscellaneous - [...] Lvl 9.3 mg/dL (8.5 - 10.5) Source: [facility] POWERCHART Document Id: [id number] Electronically signed by Antonette, [facility] Inspector Mechanical [id number] at 04/04/2017 5:34 PM CDT Miscellaneous - [...] 1.59 x10(9)/L (0.90 - 2.90) 07/29/2014 08:55 Deuel Absolute 0.79 x10(9)/L (0.30 - 0.90) 07/29/2014 08:55 Eos Absolute 0.43 x10(9)/L (0.05 - 0.50) 07/29/2014 08:55 Baso Absolute 0.03 x10(9)/L (0.00 - 0.30) 07/29/2014 08:55 Differential? Auto Source[facility] Document Id: [id number] Electronically signed by Antonette [facility] Inspector Mechanical [id number] at 04/04/2017 5:34 PM CDT Miscellaneous - [...] SALINAS LPN - 07/29/2014 8:33 CDT [facility]: [facility] Document Id: [id number] CDT!10 Miscellaneous - Brandin Kruger M.D. - 07/29/2014 8:31 AM CDT Ambulatory Patient Summary [address], [place] [id number] Visit Information Name: FRANCSE HAGER [facility] Number: [id number] Current Date: 07/29/2014 08:31:13 Physicians [...] diabetes and lists emergency contact numbers ?? [phone] Ana Gilliam, [address] [place] [address], [place] [address]. All rights reserved. This information is not intended as a substitute for professional medical care. Always follow your healthcare professional's instructions. Your Goals/Additional instructions: This document has images extracted. Please consider using [employer] for all your patient education needs. Source: [facility] POWERCHART Document Id: [id number] Miscellaneous - Brandin Kruger M.D. - 07/29/2014 8:31 AM CDT Ambulatory Discharge Medication List [address] [id number] Visit Information Name: FRANCES HAGER [facility] Number: [id number] Visit Date: 07/29/2014 08:31:10 Attending [...] MD Signed On:29-JUL-2014 08:29:27 Additional Information: Source: [facility] POWERCHART Document Id: [id number] Miscellaneous - Irvin Salinas L.PLoriN. - 07/29/2014 8:29 AM CDT Adult Global Marketing Specialist Intake/History Adult Global Marketing Specialist Intake/History Entered On: 07/29/2014 8:33 CDT Performed On: 07/29/2014 8:29 CDT by IRVIN SALINAS LPN Intake Chief Complaint : Pre-op Dr Hao Grimes 08/08/14 left rotator cuff [place] Temperature Core : 36.6 DegC(Converted to: 97.9 [...] Index : 36.72 kg/m2 IRVIN SALINAS RAE MARKETING ADMIN - 07/29/2014 8:29 CDT General Info Information Given By : Patient Languages : Occitan Is Patient Female and 13-50 no hysterectomy : No IRVIN SALINAS RAE MARKETING ADMIN - 07/29/2014 8:29 CDT Subjective Pain Symptoms : No IRVIN SALINAS RAE MARKETING ADMIN - 07/29/2014 8:29 CDT Dependent Habits Tobacco Use/Currently Using : No Exposure to Tobacco Smoke : Other: former smoker Smoking Status : Never smoker Alcohol Use : No SALINASIRVIN FRANCOIS LENNOX MARKETING ADMIN - 07/29/2014 8:29 CDT Caffeine Use Grid Caffeine Use : Current Type : Coffee IRVIN SALINAS RAE MARKETING ADMIN - 07/29/2014 8:29 CDT Recreational Drug Use Grid Drug Use : None IRVIN SALINAS LENNOX MARKETING ADMIN - 07/29/2014 8:29 CDT Source: [employer] Document Id: [id number] CDT!38 documented in this encounter Plan of Treatment Upcoming Encounters Date Type Specialty Care Team Description 09/27/2022 Office Visit Dermatology Marianela Braden M.D. [address] [place], [place] [phone] (Wo rk) documented as [...] Culture, Aerobic, Urine (07/29/2014 9:51 AM CDT) [facility] Method Time Signature Bacterial POWERCHART Culture, Aerobic, Urine HXFinal Mixed alex. No POWERCHART further studies unless notified. [facility] POWERCHART Microbiology laboratory [phone] Specimen Anatomical Collection Method Collection Time Receive d Time (Source) Location / / Volume Laterality Micro Spec 07/29/2014 9:51 AM 4 9:51 CDT AM CDT Brandin Kruger M.D. LAB MICROBIOLOGY - GENERAL O RDERABLES Performing Organization Address City/[facility] Code Phon e Number POWERCHART (ABNORMAL) Urinalysis, Midstream, with culture if indicated (07/29/2014 9:43 AM CDT) [facility] Method Time Signature Source Clean Void POWERCHART Urine HXUr Color Yellow POWERCHART Clarity Slightly POWERCHART Cloudy (A) Glucose Negative MGDL POWERCHART HXBILIRUBIN Negative POWERCHART Ketones, QL(U) Negative MGDL POWERCHART Specific 1.020 POWERCHART Rogers, POCT, U HXBLOOD Negative POWERCHART pH, POCT, [...] M.D. LAB URINE ORDERABLES Performing Organization Address City/[facility] Code Phon e Number POWERCHART Automated Differential [...] X109L Erythrocytes 4.52 3.90 - POWERCHART 5.03 [id number] Hemoglobin 13.1 12.0 - POWERCHART 15.5 GDL [...] M.D. LAB BLOOD ADD-ON Performing Organization Address City/State/[facility] Code Phon e Number POWERCHART (ABNORMAL) BMP [...]
--- OUTSIDE RECORDS SUMMARY | 2022-08-15 00:11 | XMS_ITS | Encounter Summary ---
:1945 Author Organization [facility] Address [address] [place] [address] Care Team Providers Name Role Phone Unavailable Primary Care Provider Unavailable Encounter Details Date Type Department Care Team Description 11/27/2014 Hospital Encounter HX NO MAPPING Fabricio Kruger M.D. [address] [place] [address]21 (Wo rk) Social History Tobacco Use [...] SMITH LPN on 16 December 2014 11:40:07 RN CLINICAL RESEARCH patient returned call metformin sent to Pharmacy on 12/15/14 Addendum by IRVIN SMITH LPN on 16 December 2014 11:12:01 RN CLINICAL RESEARCH message left for patient to return call From: MONICA ACKERMAN To: GRZEGORZ Kruger Nurse; Sent: 12/16/2014 10:39:51 RN CLINICAL RESEARCH Subject: *Phone Message Caller is: ( x ) Patient ( ) Mother ( ) Father ( ) Spouse ( ) Daughter ( ) Son ( ) Pharmacy ( ) Other: Physician: Patient Reason for Call: Message: S: Patient called to leave message with doctor B: Patient has questions regarding new medication she has A: R: Call patient at [phone] Advice/Action: Source used: ( ) Verbalizes understanding [...] back cell phone number ( ) Source: [employer] Document Id: [id number] Miscellaneous - Conversion, Historical Provider Ser - 11/27/2014 11:59 PM RN CLINICAL RESEARCH Coding Summary-Paper Based CODING DATE: 12/09/[address] [facility] STATUS: * Discharged to Home [...] LAUREANO Date Saved: 12/09/2014 10:51 pm Source: [employer] Document Id: [id number] documented in this encounter Plan of Treatment Upcoming Encounters Date Type Specialty Care Team Description 09/27/2022 Office Visit Dermatology Marianela Braden M.D. [address] [place], [place] [phone] (Wo rk) documented as of this encounter Visit Diagnoses Not on filedocumented in this encounter Additional Health Concerns Assessment Noted Time PHQ-9 Depression Total Score: 3 05/05/2014 7:55 AM CDT documented as of this encounter
--- OUTSIDE RECORDS SUMMARY | 2022-08-15 00:11 | XMS_ITS | Encounter Summary ---
:1945 Author Organization [facility] Address [address] [place] [address] Care Team Providers Name Role Phone Unavailable Primary Care Provider Unavailable Encounter Details Date Type Department Care Team Description 01/19/2017 Hospital Encounter HX [facility] FBCV Jairo Mix M.D. [address] [place] [address] (Wo rk) Social History Tobacco Use [...] Sensitive-Scott 1.4 mIU/L (0.3-4.2 - ) Source: [facility] POWERCHART Document Id: [id number] Electronically signed by Conversion, [facility] Applications Chemist [id number] at 04/18/2017 2:02 AM CDT Miscellaneous - [...] 8.4 % A1C ( - <=5.6) Source: [facility] POWERCHART Document Id: [id number] Electronically signed by Conversion, [facility] Applications Chemist [id number] at 04/18/2017 2:02 AM CDT documented in this encounter Plan of Treatment Upcoming Encounters Date Type Specialty Care Team Description 09/27/2022 Office Visit Dermatology Marianela Braden M.D. [address] [place], [place] [phone] (Wo rk) documented as [...] M.D. LAB URINE ORDERABLES Performing Organization Address City/[facility]/ZIP Code Phon e Number POWERCHART Thyroid Function [place] (01/19/2017 9:52 AM CDT) athologist Signature TSH, Sensitive 1.4 0.3 - 4.2 POWERCHART MIUL Comment: Test Performed by: [address] [address] Specimen (Source) Anatomical Collection Method Collection Time Re ceived Time Location / / Volume Laterality Blood 01/19/2017 9:52 AM CDT Brandin Kruger M.D. LAB BLOOD ADD-ON Performing Organization Address City/[facility] Code Phon e Number POWERCHART (ABNORMAL) Lipid [...] for FH and FDB is available throu [facility]: FH/ADH Genetic Reflex Tuttle el (test ADHP). Acquired (non-genetic) causes of markedly increased LDL cholesterol include cholestatic liver disease due to the presence of LpX. If a genetic form of hypercholesterolemia is suspected, family studies including biochemical testing fo r lipids (total cholesterol,triglycerides, LDL cholesterol and HDL cholesterol) are recommended. ??Please contact the laboratory at or the on-line test catalog at [employer] for information about how to order these [...] LAB BLOOD ADD-ON Performing Organization Address City/[facility] Phon e Number POWERCHART (ABNORMAL) BMP (Basic [...] 15 MMOLL POWERCHART HXeGFR (MDRD) >60 >=60 [id number] POWERCHART eGFR Black/ >60 >=60 [id number] POWERCHART Glucose 195 (H) 70 - 139 [...] Depression Total Score: 1 12/02/2015 8:50 AM PLANT CONTROLS SPECIALIST documented as of this encounter
--- OUTSIDE RECORDS SUMMARY | 2022-08-15 00:11 | XMS_ITS | Encounter Summary ---
:1945 Author Organization [facility] Address [address] [place] [address] Care Team Providers Name Role Phone Unavailable Primary Care Provider Unavailable Encounter Details Date Type Department Care Team Description 12/02/2015 Hospital Encounter HX NO MAPPING Fabricio Kruger M.D. [address] [place] [address] (Wo rk) Social History Tobacco Use [...] Historical Provider Ser - 12/02/2015 11:59 PM HEALTH TECHNICIAN HEARING Coding Summary-Paper Based CODING DATE: 12/11/[address] [facility] STATUS: * Discharged to Home or [...] 03:26 pm Source: [facility] POWERCHART Document Id: [id number] documented in this encounter Plan of Treatment Upcoming Encounters Date Type Specialty Care Team Description 09/27/2022 Office Visit Dermatology Marianela Braden M.D. [address] [place], [place] [phone] (Wo rk) documented as of this encounter Visit Diagnoses Not on filedocumented in this encounter Additional Health Concerns Assessment Noted Time PHQ-9 Depression Total Score: 1 12/02/2015 8:50 AM HEALTH TECHNICIAN HEARING documented as of this encounter
--- OUTSIDE RECORDS SUMMARY | 2022-08-15 00:11 | XMS_ITS | Encounter Summary ---
:1945 Author Organization [facility] Address [address] [place] [address] Care Team Providers Name Role Phone Unavailable Primary Care Provider Unavailable Encounter Details Date Type Department Care Team Description 03/27/2015 Hospital Encounter HX [facility] BONE DENS Jairo Kruger M.D. [address] [place] [phone] (Wo yajaira) Social History Tobacco [...] Visit Dermatology Marianela Braden M.D. [address] [place], [place] [phone] (Wo rk) documented as [...] was administratively signed by proxy from a [employer] windows server administrator for system process complet ion purposes. Narrative 03/27/2015 2:57 PM CDT Originally Signed By Contributor_system Fluid [email or web address]_[email or web address]_SYS EXAM: BD Bone Density Screening INDICATION: screening Procedure Note ProviderAmy M.D. - 03/15/2017F ormatting of this note might be different from the original. Originally Signed By Contributor_systemELIS_PSCRIBE_SYS EXAM: BD Bone Density Screening INDICATION: screening IMPRESSION: To see the signed report ple ase check the scanned copy in the patient's powerchart. This report was administratively signed by proxy from a [employer] windows server administrator for system process complet ion purposes. Wendy Chavez(R), R.TLori(R)(M) IMG DXA PROCEDURES documented in this encounter Visit Diagnoses Not on filedocumented in this encounter Additional Health Concerns Assessment Noted Time PHQ-9 Depression Total Score: 3 05/05/2014 7:55 AM CDT documented as of this encounter
--- OUTSIDE RECORDS SUMMARY | 2022-08-15 00:11 | XMS_ITS | Encounter Summary ---
:1945 Author Organization [facility] Address [address] [place] [address] Care Team Providers Name Role Phone Unavailable Primary Care Provider Unavailable Encounter Details Date Type Department Care Team Description 07/29/2014 Hospital Encounter HX NO MAPPING Fabricio Kruger M.D. [address] [place] [phone] (Wo yajaira) Social History Tobacco [...] Visit Dermatology Marianela Braden M.D. [address] [place], [place] [phone] (Wo rk) documented as of this encounter Visit Diagnoses Not on filedocumented in this encounter Additional Health Concerns Assessment Noted Time PHQ-9 Depression Total Score: 3 05/05/2014 7:55 AM CDT documented as of this encounter
--- OUTSIDE RECORDS SUMMARY | 2022-08-15 00:11 | XMS_ITS | Encounter Summary ---
:1945 Author Organization [facility] Address [address] [place] [address] Care Team Providers Name Role Phone Unavailable Primary Care Provider Unavailable Encounter Details Date Type Department Care Team Description 12/02/2015 Hospital Encounter HX [facility] INTERNMED Jairo Kruger M.D. [address] [place] [address] 021 (Wo rk) Social History Tobacco Use Types Packs/Day Years Used Date Smoking Tobacco: Never Assessed Sex Assigned at Date Recorded Not on file documented as of this encounter Last Filed Vital Signs Vital Sign Reading Time Taken Comments Blood Pressure 132/70 12/02/2015 8:50 AM PERFORMANCE TEST ENGINEER Pulse 65 12/02/2015 8:50 AM PERFORMANCE TEST ENGINEER Temperature - - Respiratory Rate 16 12/02/2015 8:50 AM PERFORMANCE TEST ENGINEER Oxygen Saturation - - Inhaled Oxygen Concentration - - Weight 98 kg (216 lb 0.8 oz) 12/02/2015 8:50 AM PERFORMANCE TEST ENGINEER Height 159 cm (5' 2.6) 12/02/2015 8:50 AM PERFORMANCE TEST ENGINEER Body Mass Index 38.76 12/02/2015 8:50 AM PERFORMANCE TEST ENGINEER documented in this encounter Medications at Time of Discharge Medication Sig Dispensed Refills Start Date End Date aspirin [address] tablet Take 1 tablet by mouth 0 03/14/2014 daily. vit Take 1 capsule by 0 12/02/2015 C/E/Zn/coppr/lutein/zeaxa mouth 2 (two) times a n (PRESERVISION AREDS-2 day. ORAL) documented as of this encounter H&P Notes Brandin Kruger M.D. - 12/02/2015 8:36 AM CST [id number] Preventive medicine with acute problems. The patient [...] a very nice diabetic control program in [place] where she is offered A1c's, lipid panels [...] Hearing grossly normal to scratch test bilaterally. [place] teeth top and bottom. She has got [...] this through the class she has in [place]. 6. Inactive problems. Please see past medical history. HEALTH MAINTENANCE CONCERNS Instructed to have a complete physical examination once a year, to see an dermatology sales representative or particle board supervisor once a year for glaucoma screening, and [...] Modified by and Electronically Signed by: BRANDIN KRUGRE MD On: 12/02/2015 04:17 PM Source: [facility] MHSDOLBEYNONRADSYS Document Id: [id number] ORMANCE TEST ENGINEER documented in this encounter Miscellaneous Notes Miscellaneous - Chapito Wilkes R.N. - 11/08/2016 11:06 AM CST refill request - Divalproex Document Contains Addenda Addendum by BRANDIN KRUGER MD on November 08, 2016 12:22:35 PERFORMANCE TEST ENGINEER From: BRANDIN KRUGER MD Sent: 11/08/2016 12:22:35 PERFORMANCE TEST ENGINEER Subject: RE:refill request - Divalproex Approved Order:divalproex sodium (Depakote 500 mg oral delayed release tablet) See Instructions 1 tab(s) PO in the AM and 2 tabs in the PM Due for Annual Physical Qty: 270 tab(s) Refills: 0 Substitutions Allowed Route To Pharmacy - [id number] Signed by BRANDIN KRUGER MD 11/08/2016 12:22:27 From: CHAPITO WILKES RN (formerly [facility] Medication Refill) To: BRANDIN KRUGER MD; Sent: 11/08/2016 11:06:43 PERFORMANCE TEST ENGINEER Subject: refill request - Divalproex On hold pending signature Order:divalproex sodium (Depakote 500 mg oral delayed release tablet) See Instructions 1 tab(s) PO in the AM and 2 tabs in the PM Due for Annual Physical Qty: 270 tab(s) Refills: 0 Substitutions Allowed Route To Pharmacy - [facility] #[id number] Caller is: ( _ ) Patient ( _ ) Mother ( _ ) Father ( _ ) Spouse ( _ ) Daughter ( _ ) Son ( x ) Pharmacy ( _ ) Other: _ Provider: [place] Pharmacy: [facility] Name of Medications Needing Refill: Divalproex Last Refill Date: 07/19/16 Additional Information: Direct to provider medication. Last / Future Appointment: 12/02/15 Disposition: ( x ) Send to Pharmacy ( _ ) Call to Pharmacy ( _ ) Patient will roll picker Script ( _ ) Mail Rx to Patient Source: [facility] POWERCHART Document Id: [id number] Electronically signed by Conversion, [facility] Protection Analyst [id number] at 04/01/2017 7:25 AM CDT Telephone Encounter - Conversion, Historical [...] ER 1000mg daily From: PAULA ZENG ( [address] Coffee [employer]) To: GRZEGORZ Kruger Nurse; Sent: 04/13/2016 16:25:33 CDT Subject: *Phone Message/dr brandin kruger Caller is: ( x ) Patient ( ) Mother ( ) Father ( ) Spouse ( ) Daughter ( ) Son ( ) Pharmacy ( ) Other: Physician: Patient MRN #: Reason for Call: [facility] pharmacy didn't have record of the prescription for diabetes, for time release medication. any questions [phone]. Message: Advice/Action: Source used: ( ) Verbalizes [...] phone number ( ) Source: [facility] PayAllies Document Id: [id number] Miscellkonrad - Lucio Mittal L.P.N. - 12/25/2015 11:20 AM CST Quality Measures Quality Measures Entered On: 01/12/2016 11:21 PERFORMANCE TEST ENGINEER Performed On: 12/25/2015 11:20 PERFORMANCE TEST ENGINEER by LUCIO MITTAL LPN Labs Outside Lab Hgb A1c : 7.2 % LUCIO MITTAL LPN - 01/12/2016 11:20 PERFORMANCE TEST ENGINEER Source: [facility] [employer]ies Document Id: [id number] PERFORMANCE TEST ENGINEER!3 ORMANCE TEST ENGINEER Brandin Malik M.D. - 12/03/2015 10:07 AM CST Results Notification Document Contains Addenda Addendum by IRVIN SALINAS LPN on 03 December 2015 10:24:12 PERFORMANCE TEST ENGINEER called with results From: BRANDIN KRUGER MD To: Brandin Kruger Nurse; Sent: 12/03/2015 10:07:24 PERFORMANCE TEST ENGINEER ! Show up: 12/03/2015 10:07:24 PERFORMANCE TEST ENGINEER Subject: Results Notification Actions: Notify patient of results Reminder Comments: reflex OK Results: Date Result Name Ind Value Ref Range 12/02/2015 09:15 TSH, Sensitive-Scott (H) 5.2 mIU/L (0.3-4.2 - ) Source: [facility] PayAllies Document Id: [id number] Electronically signed by Conversion, [facility] Protection Analyst [id number] at 04/01/2017 7:25 AM CDT Miscellaneous - Brandin Kruger M.D. - 12/03/2015 9:12 AM CST Results Notification From: BRANDIN KRUGER MD To: Brandin Kruger Nurse; Sent: 12/03/2015 09:12:12 PERFORMANCE TEST ENGINEER ! Show up: 12/03/2015 09:12:12 PERFORMANCE TEST ENGINEER Subject: Results Notification Actions: Notify patient of results Reminder Comments: go no further Results: Date Result Type Ind Result Name MBO Review Culture Urine Source: [facility] PayAllies Document Id: [id number] Electronically signed by Conversion, [facility] Protection Analyst [id number] at 04/01/2017 7:25 AM CDT Telephone Encounter - Conversion, Historical Provider Ser - 12/03/2015 9:10 AM CST *Phone Message/Moe Kruger Document Contains Addenda Addendum by IRVIN SALINAS LPN on 03 December 2015 09:17:43 PERFORMANCE TEST ENGINEER From: IRVIN SALINAS LPN ( Brandin Kruger Nurse) To: BRANDIN KRUGER MD; Sent: 12/03/2015 09:17:43 PERFORMANCE TEST ENGINEER Subject: FW: *Phone Message/Moe Kruger can you please order chol From: BRUNA MANN ( [facility] [employer]) To: GRZEGORZ Kruger Nurse; Sent: 12/03/2015 09:10:35 PERFORMANCE TEST ENGINEER Subject: *Phone Message/Moe Kruger Caller is: (x [...] run that? Please call her back at [phone]. Message: Advice/Action: Source used: ( ) Verbalizes [...] phone number ( ) Source: [facility] POWERCHART Document Id: [id number] Miscellaneous - Brandin Kruger M.D. - 12/02/2015 12:41 PM CST Results Notification Document Contains Addenda Addendum by IRVIN SALINAS LPN on 03 December 2015 08:41:33 PERFORMANCE TEST ENGINEER called with results From: BRANDIN KRUGER MD To: GRZEGORZ Kruger Nurse; Sent: 12/02/2015 12:41:55 PERFORMANCE TEST ENGINEER ! Show up: 12/02/2015 12:41:55 PERFORMANCE TEST ENGINEER Subject: Results Notification Actions: Notify patient of results Reminder Comments: ok Results: Date Result Name Ind Value Ref Range 12/02/2015 09:28 U Albumin 87.9 mg/L 12/02/2015 09:28 U Creatinine 240.2 mg/dL 12/02/2015 09:28 U Alb/Creatinine Ratio (H) 37 mg/g (0 - 25) Source: [facility] auctionpointCHART Document Id: [id number] Electronically signed by Conversion, [facility] Protection Analyst [id number] at 04/01/2017 7:25 AM CDT Miscellaneous - Brandin Kruger M.D. - 12/02/2015 11:20 AM CST Results Notification Document Contains Addenda Addendum by IRVIN SALINAS LPN on 03 December 2015 08:41:39 PERFORMANCE TEST ENGINEER called with results From: BRANDIN KRUGER MD To: GRZEGORZ Krugre Nurse; Sent: 12/02/2015 11:20:51 PERFORMANCE TEST ENGINEER ! Show up: 12/02/2015 11:20:51 PERFORMANCE TEST ENGINEER Subject: Results Notification Actions: Notify patient of [...] ALT 20 unit/L (7 - 45) Source: [facility] POWERCHART Document Id: [id number] Electronically signed by Conversion, [facility] Protection Analyst [id number] at 04/01/2017 7:25 AM CDT Miscellaneous - Brandin Kruger M.D. - 12/02/2015 9:52 AM CST Results Notification Document Contains Addenda Addendum by IRVIN SALINAS LPN on 03 December 2015 08:41:46 PERFORMANCE TEST ENGINEER called with results From: BRANDIN KRUGER MD To: GRZEGORZ Kruger Nurse; Sent: 12/02/2015 09:52:38 PERFORMANCE TEST ENGINEER ! Show up: 12/02/2015 09:52:38 PERFORMANCE TEST ENGINEER Subject: Results Notification Actions: Notify patient of [...] (*) Present (None Seen - ) Source: [facility] POWERCHART Document Id: [id number] Electronically signed by Conversion, [facility] Protection Analyst [id number] at 04/01/2017 7:25 AM CDT Brandin Malik M.D. - 12/02/2015 9:22 AM CST Results Notification Document Contains Addenda Addendum by IRVIN SALINAS LPN on 03 December 2015 08:41:25 PERFORMANCE TEST ENGINEER called with results From: BRANDIN KRUGER MD To: GRZEGORZ Kruger Nurse; Sent: 12/02/2015 09:22:24 PERFORMANCE TEST ENGINEER ! Show up: 12/02/2015 09:22:24 PERFORMANCE TEST ENGINEER Subject: Results Notification Actions: Notify patient of results Reminder Comments: ok Results: Date Result Name Value Ref Range 12/02/2015 09:15 Hgb 14.9 g/dL (12.0 - 15.5) [facility] Document Id: [id number] Electronically signed by Conversion, [facility] Protection Analyst [id number] at 04/01/2017 7:25 AM CDT Jimmie - Irvin Salinas L.P.N. - 12/02/2015 8:50 AM CST PHQ-9 PHQ-9 Entered On: 12/02/2015 8:50 PERFORMANCE TEST ENGINEER Performed On: 12/02/2015 8:50 PERFORMANCE TEST ENGINEER by IRVIN SALINAS LPN PHQ-9 Little interest [...] all IRVIN SALINAS LPN - 12/02/2015 8:50 PERFORMANCE TEST ENGINEER Source: [facility] PayAllies Document Id: [id number] PERFORMANCE TEST ENGINEER!13 ORMANCE TEST ENGINEER Miscellaneous - Irvin Salinas L.P.N. - 12/02/2015 8:50 AM CST Adult Manager Wound Care Intake/History Adult Manager Wound Care Intake/History Entered On: 12/02/2015 8:51 PERFORMANCE TEST ENGINEER Performed On: 12/02/2015 8:50 PERFORMANCE TEST ENGINEER by IRVIN SALINAS LPN Intake Chief Complaint [...] kg/m2 IRVIN SALINAS LPN - 12/02/2015 8:50 PERFORMANCE TEST ENGINEER General Info Information Given By : Patient Languages : Greenlandic Is Patient Female and 13-50 no hysterectomy : No IRVIN SALINAS LPN - 12/02/2015 8:50 PERFORMANCE TEST ENGINEER Subjective Pain Symptoms : No IRVIN SALINAS LPN - 12/02/2015 8:50 PERFORMANCE TEST ENGINEER Dependent Habits Exposure to Tobacco Smoke : Other: former smoker Smoking Status : Former smoker Tobacco 2A : Yes Tobacco Use/Currently Using : No Tobacco Use/Last 30 Days : No Tobacco Use/Last 12 months : No IRVIN SALINAS LPN - 12/02/2015 8:50 PERFORMANCE TEST ENGINEER Caffeine Use Grid Caffeine Use : Current Type : Coffee IRVIN SALINAS LPN - 12/02/2015 8:50 PERFORMANCE TEST ENGINEER Recreational Drug Use Grid Drug Use : None IRVIN SALINAS LPN - 12/02/2015 8:50 PERFORMANCE TEST ENGINEER Source: [facility] POWERCHART Document Id: [id number] PERFORMANCE TEST ENGINEER!38 ORMANCE TEST ENGINEER Miscellaneous - Irvin Salinas L.P.N. - 12/02/2015 8:49 AM CST Health Assessment Health Assessment Entered On: 12/02/2015 8:49 PERFORMANCE TEST ENGINEER Performed On: 12/02/2015 8:49 PERFORMANCE TEST ENGINEER by IRVIN SALINAS LPN Health Assessment Complete Health Assessment Complete or Modified : Annual Health Assessment Annual Health Assessment Completed : Yes IRVIN SALINAS LPN - 12/02/2015 8:49 PERFORMANCE TEST ENGINEER Nutrition Nutrition Risk Factors by History Adult : None IRVIN SALINAS LPN - 12/02/2015 8:49 PERFORMANCE TEST ENGINEER Functional Current Daily Living Assistance : None IRVIN SALINAS LPN - 12/02/2015 8:49 PERFORMANCE TEST ENGINEER Dependent Habits Exposure to Tobacco Smoke : Other: former smoker Smoking Status : Former smoker Tobacco 2A : Yes Tobacco Use/Currently Using : No Tobacco Use/Last 30 Days : No Tobacco Use/Last 12 months : No IRVIN SALINAS SCALING MACHINE OPERATOR - 12/02/2015 8:49 PERFORMANCE TEST ENGINEER Caffeine Use Grid Caffeine Use : Current Type : Coffee IRVIN SALINAS SCALING MACHINE OPERATOR - 12/02/2015 8:49 PERFORMANCE TEST ENGINEER Alcohol Use : No IRVIN SALINAS SCALING MACHINE OPERATOR - 12/02/2015 8:49 PERFORMANCE TEST ENGINEER Recreational Drug Use Grid Drug Use : None IRVIN SALINAS LPN - 12/02/2015 8:49 PERFORMANCE TEST ENGINEER Psychosocial Domestic Abuse Concerns : None Behavioral Health Screen/Safety Assmt : No Pentecostal Preference : Moravian IRVIN SALINAS LPN - 12/02/2015 8:49 PERFORMANCE TEST ENGINEER Advance Directive Advanced Directives : No Advance Directive Additional Information : No IRVIN SALINAS LPN 12/02/2015 8:49 PERFORMANCE TEST ENGINEER Educ Needs Learning Style Preference Adult Grid Patient : Verbal explanation, Printed materials Family : Verbal explanation, Printed materials IRVIN SALINAS LPN - 12/02/2015 8:49 PERFORMANCE TEST ENGINEER Source: [facility] POWERCHART Document Id: [id number] PERFORMANCE TEST ENGINEER!34 ORMANCE TEST ENGINEER Miscellaneous - Brandin Kruger M.D. - 12/02/2015 8:45 AM CST Ambulatory Patient Summary [place] [id number] [facility] [place] [phone] Visit Information Name: FRANCES MEEK [facility] Number: [id number] Current Date: 12/02/2015 08:45:37 [...] often feel anxious, nervous, and stressed? ?? [id number] [facility], [address] [place] [address], [place] [address]. All rights reserved. This information is not [...] if you dont have one. Go to [email or web address] and click on Create Your Account. Then, follow the directions to complete the online form. Youll be asked for your [facility] number which you can find at the top of this document. Your Goals/Additional instructions: This document has images extracted. Please consider using StowThat for all your patient education needs. Source: [facility] POWERCHART Document Id: [id number] ORMANCE TEST ENGINEER Miscellaneous - Brandin Kruger M.D. - 12/02/2015 8:45 AM CST Ambulatory Discharge Medication List [address] [id number] Visit Information Name: FRANCES MEEK [facility] Number: [id number] Visit Date: 12/02/2015 08:45:35 [...] Signed By: Signed On: Additional Information: Source: [facility] POWERCHART Document Id: [id number] ORMANCE TEST ENGINEER documented in this encounter Plan of Treatment Upcoming Encounters Date Type Specialty Care Team Description 09/27/2022 Office Visit Dermatology Marianela Braden M.D. [address] [place], [place] [phone] (Wo rk) documented as of this encounter Procedures Procedure Name Priority Date/Time Associated Comments Diagnosis BACTERIAL CULTURE, Routine 12/02/2015 9:42 Result s for this AEROBIC, URINE AM PERFORMANCE TEST ENGINEER procedure are in the results section. URINALYSIS, MIDSTREAM, Routine 12/02/2015 9:28 Re sults for this WITH CULTURE IF AM PERFORMANCE TEST ENGINEER procedure ar e in INDICATED the results section. ALBUMIN, RANDOM, U Routine 12/02/2015 9:28 Result s for this AM PERFORMANCE TEST ENGINEER procedure are i n the results section. THYROID FUNCTION Routine 12/02/2015 9:15 Results for this CASCADE, S AM PERFORMANCE TEST ENGINEER procedure are i n the results section. THYROID AUTOABS PROFILE, Routine 12/02/2015 9:15 Results for this S AM PERFORMANCE TEST ENGINEER procedure are i n the results section. HEMOGLOBIN, B Routine 12/02/2015 9:15 Results for this AM PERFORMANCE TEST ENGINEER procedure are i n the results section. ALANINE AMINOTRANSFERASE Routine 12/02/2015 9:15 Results for this (ALT), S/P AM PERFORMANCE TEST ENGINEER procedure are i n the results section. T4 (THYROXINE), FREE, S Routine 12/02/2015 9:15 R esults for this AM PERFORMANCE TEST ENGINEER procedure are i n the results section. BASIC METABOLIC PANEL, Routine 12/02/2015 9:15 Re sults for this S/P AM PERFORMANCE TEST ENGINEER procedure are i n the results section. documented in this encounter Results Bacterial Culture, Aerobic, Urine (12/02/2015 9:42 AM PERFORMANCE TEST ENGINEER) [facility] Method Time Signature Bacterial POWERCHART Culture, Aerobic, Urine HXFinal Mixed alex. No POWERCHART further studies unless notified. [facility] POWERCHART Microbiology laboratory [phone]. Specimen Anatomical Collection Method Collection Time Receive d Time (Source) Location / / Volume Laterality Urine, First 12/02/2015 9:42 AM 6 9:42 Voided PERFORMANCE TEST ENGINEER AM PERFORMANCE TEST ENGINEER Brandin Kruger M.D. LAB MICROBIOLOGY - GENERAL O RDERABLES Performing Organization Address City/State/ZIP Code Phon e Number POWERCHART (ABNORMAL) Urinalysis, Midstream, with culture if indicated (12/02/2015 9:28 AM PERFORMANCE TEST ENGINEER) [facility] Method Time Signature Clarity Clear Clear POWERCHART HXUr Color Yellow Colorless POWERCHART Specific 1.025 POWERCHART [place], POCT, U pH, POCT, Urine 7.0 <5.0 [...] Laterality Urine, First 12/02/2015 9:28 AM Voided PERFORMANCE TEST ENGINEER Brandin Kruger M.D. LAB URINE ORDERABLES Performing Organization Address City/[facility] Phon e Number POWERCHART (ABNORMAL) Microalbumin, Random, Urine (12/02/2015 9:28 AM PERFORMANCE TEST ENGINEER) P athologist Signature HXU Albumin % 87.9 MGL POWERCHART Creatinine, 240.2 MGDL POWERCHART Random, U Albumin/Creatin 37 (H) 0 - 25 MGG POWERCHART ine Ratio Specimen (Source) Anatomical Collection Method Collection Time Re ceived Time Location / / Volume Laterality Urine 12/02/2015 9:28 AM PERFORMANCE TEST ENGINEER Brandin Kruger M.D. LAB URINE ORDERABLES Performing Organization Address [facility] Code Phon e Number POWERCHART Hemoglobin (12/02/2015 9:15 AM PERFORMANCE TEST ENGINEER) athologist Signature Hemoglobin 14.9 12.0 - 15.5 POWERCHART GDL Specimen (Source) Anatomical Collection Method Collection Time Re ceived Time Location / / Volume Laterality Blood 12/02/2015 9:15 AM PERFORMANCE TEST ENGINEER Brandin Kruger M.D. LAB BLOOD ADD-ON Performing Organization Address [facility] Phon e Number POWERCHART Thyroid Autoantibodies Profile (12/02/2015 9:15 AM PERFORMANCE TEST ENGINEER) [facility] gist Method Time Signature Thyroperoxidase Ab, 1.0 <9.0 POWERCHART S INTUML Comment: Test Performed by: [place] [address] Conventional Machinist: Mauro Springer II, M.D., Ph.D. Specimen Anatomical Collection Method Collection Time Receive d Time (Source) Location / / Volume Laterality Blood 12/02/2015 9:15 AM 6 8:14 PERFORMANCE TEST ENGINEER AM PERFORMANCE TEST ENGINEER Historical Provider LAB BLOOD NON ADD-ON Performing Organization Address City/[facility]/ZIP Code Phon e Number POWERCHART T4 (Thyroxine), Free (12/02/2015 9:15 AM PERFORMANCE TEST ENGINEER) athologist Signature T4 (Thyroxine), 1.3 0.9 - 1.7 POWERCHART Free, S NGDL Comment: Test Performed by: [place] [address] Conventional Machinist: Mauro Springer II, M.D., Ph.D. Specimen Anatomical Collection Method Collection Time Receive d Time (Source) Location / / Volume Laterality Blood 12/02/2015 9:15 AM 6 7:20 PERFORMANCE TEST ENGINEER AM PERFORMANCE TEST ENGINEER Historical Provider LAB BLOOD ADD-ON Performing Organization Address [facility] Phon e Number POWERCHART (ABNORMAL) Thyroid Function [place] (12/02/2015 9:15 AM PERFORMANCE TEST ENGINEER) athologist Signature TSH, Sensitive 5.2 (H) 0.3 - 4.2 POWERCHART MIUL Comment: Test Performed by: [place] [address] Conventional Machinist: Mauro Springer II, M.D., Ph.D. Specimen (Source) Anatomical Collection Method Collection Time Re ceived Time Location / / Volume Laterality Blood 12/02/2015 9:15 AM PERFORMANCE TEST ENGINEER Brandin Kruger M.D. LAB BLOOD ADD-ON Performing Organization Address [facility]/ZIP Code Phon e Number POWERCHART (ABNORMAL) BMP (Basic Metabolic Panel) (12/02/2015 9:15 AM PERFORMANCE TEST ENGINEER) athologist Signature Anion Gap 12 7 - [...] POWERCHART MMOLL HXeGFR (MDRD) 60 >=60 POWERCHART [id number] eGFR >60 >=60 POWERCHART Black/ [id number] [place] Specimen (Source) Anatomical Collection Method Collection Time Re ceived Time Location / / Volume Laterality Blood 12/02/2015 9:15 AM PERFORMANCE TEST ENGINEER Brandin Kruger M.D. LAB BLOOD ADD-ON Performing Organization Address City/State/ZIP Code Phon e Number POWERCHART ALT (Alanine Aminotransferase) (12/02/2015 9:15 AM PERFORMANCE TEST ENGINEER) P athologist Signature Alanine 20 7 - 45 POWERCHART Amniotransferas UNITL e, LD Specimen (Source) Anatomical Collection Method Collection Time Re ceived Time Location / / Volume Laterality Blood 12/02/2015 9:15 AM PERFORMANCE TEST ENGINEER Brandin Kruger M.D. LAB BLOOD ADD-ON Performing Organization Address City/State/ZIP Code Phon e Number POWERCHART documented in this encounter Visit Diagnoses Not on filedocumented in this encounter Additional Health Concerns Assessment Noted Time PHQ-9 Depression Total Score: 1 12/02/2015 8:50 AM PERFORMANCE TEST ENGINEER documented as of this encounter
--- OUTSIDE RECORDS SUMMARY | 2022-08-15 00:11 | XMS_ITS | Encounter Summary ---
:1945 Author Organization [facility] Address [address] [place] [address] Care Team Providers Name Role Phone Unavailable Primary Care Provider Unavailable Encounter Details Date Type Department Care Team Description 05/07/2015 Hospital Encounter HX [facility] INTERNMED Jairo Kruger M.D. [address] [place] [address] [phone] (Wo rk) Social History Tobacco Use [...] Kruger M.D. - 05/07/2015 1:13 PM CDT [id number] Frances had an episode where she was getting out of her car. She was a little lightheaded and she grabbed on quickly to the car door and tore some tendons in the right hand. She has seen Dr. Brewer in [place]. He has put her in a brace [...] and does notoffer any complaints. MEDICATIONS Per [facility] EMR. ALLERGIES Per [facility] EMR. SYSTEMS REVIEW Review of systems in all areas except as mentioned above is negative. PREVENTIVE SERVICES: Per [facility] EMR. Handwashing done prior to patient contact. PAST MEDICAL/SURGICAL HISTORY Per [facility] EMR. VITAL SIGNS Per [facility] EMR. PHYSICAL EXAMINATION Her right wrist is [...] KRUGER MD On: 05/07/2015 03:34 PM Source: [facility] MHSDOLBEYNONRADSYS Document Id: [id number] documented in this encounter Miscellaneous Notes Telephone Encounter - Conversion, Historical Provider Ser - 11/19/2015 9:05 AM CST *Phone Message Document Contains Addenda Addendum by SARAH IRVINPIERO HIGH LPN on 19 November 2015 09:15:34 CARBIDER patient called will do labs at appt From: KONRAD HAJI (GRZEGORZ Carrasquillo Manufacturing Finance Manager) To: GRZEGORZ Kruger Nurse; Sent: 11/19/2015 09:05:16 CARBIDER Subject: *Phone Message Caller is: (x ) Patient ( ) Mother ( ) Father ( ) Spouse ( ) Daughter ( ) Son ( ) Pharmacy ( ) Other: Physician: Patient MRN #: Reason for Call: Patient has a question regarding lab tests next. Please call her [phone] Message: Advice/Action: Source used: ( ) Verbalizes [...] back cell phone number ( ) Source: [facility] POWERCHART Document Id: [id number] Miscellaneous - Shani Hanson, R.N. - 06/22/2015 2:29 PM CDT divaloprex Document Contains Addenda Addendum by SUDHA SHAH PA-C on 22 June 2015 17:29:43 CDT From: SUDHA SHAH PA-C To: GRZEGORZ Miller Medication Refill; Sent: 06/22/2015 17:29:43 CDT Subject: RE: divaloprex I gave her one month From: SHANI HANSON RN ([facility] Medication Refill) To: SUDHA SHAH PA-C; Sent: 06/22/2015 14:29:49 CDT Subject: divaloprex Caller is: ( ) Patient ( ) Mother ( ) Father ( ) Spouse ( ) Daughter ( ) Son ( [facility] ) Pharmacy ( ) Other: Provider: kavita kruger Pharmacy: Name of Medications Needing Refill: Divaloprex dr 500 mg tab1 tab po every am and 2 tabs po hs.... Last Refill Date: 03/20/15 qty 270 Additional Information: med in EMR as HX.... 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 - 05/07/2015 3:54 PM CDT Results Notification Document Contains Addenda Addendum by PRIMITIVO QUEEN on 07 May 2015 16:53:13 CDT pt notified From: BRANDIN KRUGER MD To: GRZEGORZ Kruger Nurse; Sent: 05/07/2015 15:54:31 CDT ! Show up: 05/07/2015 15:54:31 CDT Subject: Results Notification Actions: Notify patient of results Reminder Comments: very good Results: Date Result Name Ind Value Ref Range 05/07/2015 13:52 Hgb A1c (H) 6.3 % A1C ( - <=5.6) Source: [employer] Document Id: [id number] Brandin Malik M.D. - 05/07/2015 1:47 PM CDT Ambulatory Patient Summary [address], [place] [id number] Visit Information Name: FRANCES MEEK [facility] Number: [id number] Current Date: 05/07/2015 13:47:06 Physicians [...] often feel anxious, nervous, and stressed? ?? [phone] Ana Gilliam, [address] [place] [address], [place] [id number]. All rights reserved. This information is not [...] dont have one. Go to [email or web address] and click on Create Your Account. Then, follow the directions to complete the online form. Youll be asked for your [facility] number which you can find at the top of this document. Your Goals/Additional instructions: This document has images extracted. Please consider using [employer] for all your patient education needs. Source: [facility] POWERCHART Document Id: [id number] Miscellaneous - Brandin Kruger M.D. - 05/07/2015 1:47 PM CDT Ambulatory Discharge Medication List [address] [id number] Visit Information Name: FRANCES MEEK [facility] Number: [id number] Visit Date: 05/07/2015 13:47:05 Attending [...] Signed By: Signed On: Additional Information: Source: [facility] POWERCHART Document Id: [id number] Miscellaneous - Irvin Salinas L.P.N. - 05/07/2015 1:21 PM CDT Adult Radio Electronics Officer Intake/History Adult Radio Electronics Officer Intake/History Entered On: 05/07/2015 13:24 CDT Performed [...] Information Given By : Patient Languages : Slovenian Is Patient Female and 13-50 no hysterectomy : No IRVIN SALINAS LPN - 05/07/2015 13:21 CDT Subjective Pain Symptoms : IRVIN Irizarry LPN - 05/07/2015 13:21 CDT Dependent Habits Tobacco Use/Currently Using : No Exposure to Tobacco Smoke : Other: former smoker Smoking Status : Never smoker IRVIN SALINAS POLITICAL RESEARCH SCIENTIST - 05/07/2015 13:21 CDT Caffeine Use Grid Caffeine Use : Current Type : Coffee IRVIN SALINAS POLITICAL RESEARCH SCIENTIST - 05/07/2015 13:21 CDT Recreational Drug Use Grid Drug Use : None IRVIN SALINAS POLITICAL RESEARCH SCIENTIST - 05/07/2015 13:21 CDT Source: [facility] POWERCHART Document Id: [id number] CDT!35 documented in this encounter Plan of Treatment Upcoming Encounters Date Type Specialty Care Team Description 09/27/2022 Office Visit Dermatology Marianela Braden M.D. [address] [place] [address] [phone] (Wo rk) documented as of this [...]
--- OUTSIDE RECORDS SUMMARY | 2022-08-15 00:11 | XMS_ITS | Encounter Summary ---
:1945 Author Organization [facility] Address [address] [place] [address] Care Team Providers Name Role Phone Unavailable Primary Care Provider Unavailable Encounter Details Date Type Department Care Team Description 12/08/2016 Hospital Encounter HX [facility] INTERNMED Jairo Kruger M.D. [address] [place] [address] 021 (Wo rk) Social History Tobacco Use Types Packs/Day Years Used Date Smoking Tobacco: Former Sex Assigned at Date Recorded Not on file documented as of this encounter Last Filed Vital Signs Vital Sign Reading Time Taken Comments Blood Pressure 167/60 12/08/2016 10:21 AM BARREL PAINTER Pulse 68 12/08/2016 10:20 AM BARREL PAINTER Temperature - - Respiratory Rate 20 12/08/2016 10:20 AM BARREL PAINTER Oxygen Saturation - - Inhaled Oxygen Concentration - - Weight 101 kg (223 lb 7 oz) 12/08/2016 10:20 AM BARREL PAINTER Height - - Body Mass Index 40.09 12/02/2015 8:50 AM BARREL PAINTER documented in this encounter Medications at Time of Discharge Medication Sig Dispensed Refills Start Date End Date aspirin [address] tablet Take 1 tablet by mouth 0 03/14/2014 daily. vit Take 1 capsule by 0 12/02/2015 C/E/Zn/coppr/lutein/zeaxa mouth 2 (two) times a n (PRESERVISION AREDS-2 day. ORAL) documented as of this encounter Progress Notes Brandin Kruger M.D. - 12/08/2016 10:00 AM CST [id number] CHIEF COMPLAINT/REASON FOR VISIT Medication question. The [...] HISTORY She is . She lives in [place] and does not use tobacco and has [...] KRUGER MD On: 12/09/2016 01:10 PM Source: [facility] MHSDOLBEYNONRADSYS Document Id: [id number] EL PAINTER documented in this encounter Miscellaneous Notes Miscellaneous - Brandin Kruger M.D. - 12/08/2016 10:56 AM CST Ambulatory Patient Summary [address] [id number] Visit Information Name: FRANCES HAGER [facility] Number: [id number] Current Date: 12/08/2016 10:56:08 Physicians [...] Oral, once a day New Routed to [address] [address] atorvastatin (Lipitor 40 mg oral [...] if you dont have one. Go to [email or web address] and click on Create Your Account. Then, follow the directions to complete the online form. Youll be asked for your [facility] number which you can find at the top of this document. Your Goals/Additional instructions: Source: [facility] POWERCHART Document Id: [id number] EL PAINTER Miscellaneous - Brandin Kruger M.D. - 12/08/2016 10:56 AM CST Ambulatory Discharge Medication List [address] [id number] Visit Information Name: FRANCES HAGER [facility] Number: [id number] Current Date: 12/08/2016 10:56:07 Attending [...] Oral, once a day New Routed to [address] [address] atorvastatin (Lipitor 40 mg oral tablet) 1 [...] MD Signed On:08-DEC-2016 10:54:54 Additional Information: Source: [facility] POWERCHART Document Id: [id number] EL PAINTER Miscellaneous - Dary Wilkins L.P.NLori - 12/08/2016 10:24 AM CST Health Assessment Health Assessment Entered On: 12/08/2016 10:26 BARREL PAINTER Performed On: 12/08/2016 10:24 BARREL PAINTER by DARY WILKINS LPN Health Assessment Complete Health Assessment Complete or Modified : Annual Health Assessment Annual Health Assessment Completed : Yes DARY WILKINS LPN - 12/08/2016 10:24 BARREL PAINTER Nutrition Nutrition Risk Factors by History Adult : None DARY WILKINS LPN - 12/08/2016 10:24 BARREL PAINTER Functional Current Daily Living Assistance : None DARY WILKINS LPN - 12/08/2016 10:24 BARREL PAINTER Dependent Habits Exposure to Tobacco Smoke : Other: former smoker Smoking Status : Former smoker Tobacco 2A : Yes Tobacco Use/Currently Using : No Tobacco Use/Last 30 Days : No Tobacco Use/Last 12 months : No Alcohol Use : No DARY WILKINS LPN - 12/08/2016 10:24 BARREL PAINTER Caffeine Use Grid Caffeine Use : Current Type : Coffee FRANKY DARY Samson LPN - 12/08/2016 10:24 BARREL PAINTER Recreational Drug Use Grid Drug Use : None WILKINS, DARY Samson LPN - 12/08/2016 10:24 BARREL PAINTER Psychosocial Domestic Abuse Concerns : None Behavioral Health Screen/Safety Assmt : No Islam Preference : Jewish WILKINSDARY LPN - 12/08/2016 10:24 BARREL PAINTER Advance Directive Advanced Directives : Yes Advance Directive Type : Living will Advance Directive Location : Family to bring in copy from home Advance Directive Intent Stated By : Spouse Intent of Advance Directive (In Patient's Own Words) : Either of spouses or their children WILKINS, DARY Samson LPN - 12/08/2016 10:24 BARREL PAINTER Educ Needs Learning Style Preference Adult Grid Patient : None Family : None WILKINSDARY LPN - 12/08/2016 10:24 BARREL PAINTER Source: [employer] Document Id: [id number] BARREL PAINTER!37 EL PAINTER Jimmie - Dary Wilkins L.P.NLori - 12/08/2016 10:21 AM CST Ambulatory Vitals Height Weight Ambulatory Vitals Height Weight Entered On: 12/08/2016 10:23 BARREL PAINTER Performed On: 12/08/2016 10:21 BARREL PAINTER by DARY WILKINS LPN Vitals/Ht/Wt Systolic Blood Pressure : 167 mmHg (>HHI) Diastolic Blood Pressure : 60 mmHg NIBP Mean : 96 mmHg BP Location : Left upper extremity Blood Pressure Cuff Size : Large DARY WILKINS LPN - 12/08/2016 10:21 BARREL PAINTER Source: [employer] Document Id: [id number] BARREL PAINTER!7 EL PAINTER Jimmie - Dary Wilkins L.P.NLori - 12/08/2016 10:20 AM CST Adult Sr Technical Sales Consultant Intake/History Adult Sr Technical Sales Consultant Intake/History Entered On: 12/08/2016 10:21 BARREL PAINTER Performed On: 12/08/2016 10:20 BARREL PAINTER by DARY WILKINS MIRROR MAKER Intake Chief Complaint : Medication check Temperature [...] kg DARY WILKINS LPN - 12/08/2016 10:20 BARREL PAINTER General Info Information Given By : Patient Preferred Communication Mode : Verbal Languages : Estonian Is Patient Female and 13-50 no hysterectomy : No DARY WILKINS LPN - 12/08/2016 10:20 BARREL PAINTER Subjective Pain Symptoms : No DARY WILKINS LPN - 12/08/2016 10:20 BARREL PAINTER Dependent Habits Exposure to Tobacco Smoke : Other: former smoker Smoking Status : Former smoker Tobacco 2A : Yes Tobacco Use/Currently Using : No Tobacco Use/Last 30 Days : No Tobacco Use/Last 12 months : No DARY WILKINS LPN - 12/08/2016 10:20 BARREL PAINTER Caffeine Use Grid Caffeine Use : Current Type : Coffee DARY WILKINS LPN - 12/08/2016 10:20 BARREL PAINTER Recreational Drug Use Grid Drug Use : None DARY WILKINS LPN - 12/08/2016 10:20 BARREL PAINTER Source: [facility] POWERCHART Document Id: [id number] BARREL PAINTER!35 EL PAINTER documented in this encounter Plan of Treatment Upcoming Encounters Date Type Specialty Care Team Description 09/27/2022 Office Visit Dermatology Marianela Braden M.D. [address] [place] [address] [phone] (Wo rk) documented as of this encounter Visit Diagnoses Not on filedocumented in this encounter Additional Health Concerns Assessment Noted Time PHQ-9 Depression Total Score: 1 12/02/2015 8:50 AM BARREL PAINTER documented as of this encounter
--- OUTSIDE RECORDS SUMMARY | 2022-08-15 00:11 | XMS_ITS | Encounter Summary ---
:1945 Author Organization [facility] Address [address] [place] [address] Care Team Providers Name Role Phone Unavailable Primary Care Provider Unavailable Encounter Details Date Type Department Care Team Description 11/27/2014 Hospital Encounter HX [facility] FBHB INTERNMED Jairo Xiong M.D. [address] [place] [address] 021 (Wo rk) Social History Tobacco Use Types Packs/Day Years Used Date Smoking Tobacco: Never Assessed Sex Assigned at Date Recorded Not on file documented as of this encounter Last Filed Vital Signs Vital Sign Reading Time Taken Comments Blood Pressure 110/64 11/27/2014 8:27 AM SKI TOW OPERATOR Pulse 60 11/27/2014 8:27 AM SKI TOW OPERATOR Temperature - - Respiratory Rate 16 11/27/2014 8:27 AM SKI TOW OPERATOR Oxygen Saturation - - Inhaled Oxygen Concentration - - Weight 90 kg (198 lb 6.6 oz) 11/27/2014 8:27 AM SKI TOW OPERATOR Height 159 cm (5' 2.6) 11/27/2014 8:27 AM SKI TOW OPERATOR Body Mass Index 35.6 11/27/2014 8:27 AM SKI TOW OPERATOR documented in this encounter Medications at Time of Discharge Medication Sig Dispensed Refills Start Date End Date aspirin [address] tablet Take 1 tablet by mouth 0 03/14/2014 daily. documented as of this encounter H&P Notes Brandin Xiong M.D. - 11/27/2014 8:18 AM CST [id number] Preventive medicine with acute problems. Acute problems: 1. She asked about her diagnosis of alcoholism. She is surprised by it because she has quit drinkingand has no compulsion to start drinking again. I find her much better off alcohol, and I do not disagree with the diagnosis that was made down at [place] and then carried on at the [facility]. The fact that she has no hankering [...] Hypertension. 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 [place] teeth, top and bottom. NECK: Supple, no [...] for a mammogram, having done them at [facility] in the past, and a DEXA scan. Her orthopedic doctor, after her shoulder surgery, thinks she should wait untilthe spring, so I will schedule her in 4 months for both a screening DEXA scan and a screening mammogram, and she will transfer that care here instead of going up [facility] to do her mammogram. Labstoday: She had an ALT, BMP, hemoglobin, hemoglobin A1c, lipid panel, TSH, UA with microalbumin, and UA with reflux to culture. We will call her with results. She is current on immunizations completely and on colonoscopy. Brandin Xiong M.D./cipriano Electronically Signed By: BRANDIN XIONG MD On: 11/27/2014 12:46 PM Source: [facility] MHSDOLBEYNONRADSYS Document Id: [id number] TOW OPERATOR documented in this encounter Miscellaneous Notes Miscellaneous - Shani Hanson R.N. - 12/15/2014 10:47 AM CST metformin Document Contains Addenda Addendum by BRANDIN XIONG MD on 15 December 2014 11:02:00 SKI TOW OPERATOR From: BRANDIN XIONG MD Sent: 12/15/2014 11:01:59 SKI TOW OPERATOR Subject: RE:metformin Approved Order:metFORMIN (metFORMIN 500 mg oral tablet) 1 tab(s) PO Daily Qty: 90 tab(s) Refills: 1 Substitutions Allowed Route To Pharmacy - [id number] Signed by BRANDIN XIONG MD 12/15/2014 11:01:53 From: SHANI HANSON ([facility] [place] Medication Refill) To: BRANDIN XIONG MD; Sent: 12/15/2014 10:47:27 SKI TOW OPERATOR Subject: metformin On hold pending signature Order:metFORMIN (metFORMIN 500 mg oral tablet) 1 tab(s) PO Daily Qty: 90 tab(s) Refills: 1 Substitutions Allowed Route To Pharmacy - [facility] #[id number] Caller is: ( ) Patient ( ) Mother ( ) Father ( ) Spouse ( ) Daughter ( ) Son ( [facility] ) Pharmacy ( ) Other: Provider: kavita xiong Pharmacy: Name of Medications Needing Refill: metformin 500 mg Last Refill Date: 09/15/14 qty 180 Additional Information: med changed 1 tab po daily on 11/27/14.... Last / Future Appointment: 11/27/14 Disposition: ( x ) Send to Pharmacy ( ) Call to Pharmacy ( ) Patient will rock picker Script ( ) Mail Rxto Patient Source: [facility] POWERCHART Document Id: [id number] Electronically signed by [facility], [facility] Miner Placer [id number] at 04/02/2017 1:54 PM CDT Brandin Malik M.D. - 12/01/2014 7:55 AM CST Results Notification Document Contains Addenda Addendum by IRVIN SALINAS LPN on 01 December 2014 13:18:31 SKI TOW OPERATOR called with results From: BRANDIN XIONG MD To: GRZEGORZ Xiong Nurse; Sent: 12/01/2014 07:55:07 SKI TOW OPERATOR ! Show up: 12/01/2014 07:55:07 SKI TOW OPERATOR Subject: Results Notification Actions: Notify patient of results Reminder Comments: ok Results: Date Result Name Value Ref Range 11/27/2014 09:13 U Albumin 48 mg/dL 11/27/2014 09:13 U Creatinine 214 mg/dL 11/27/2014 09:13 U Alb/Creatinine Ratio 22 mg/gm (0 - 25) Source: [facility] POWERCHART Document Id: [id number] Electronically signed by [facility], [facility] Miner Placer [id number] at 04/02/2017 1:54 PM CDT Brandin Malik M.D. - 11/28/2014 9:47 AM CST Results Notification Document Contains Addenda Addendum by FREDERIC JIMENEZ LPN on 28 November 2014 10:27:18 SKI TOW OPERATOR Patient informed of results. Addendum by FREDERIC JIMENEZ LPN on 28 November 2014 10:15:59 SKI TOW OPERATOR Left message for patient to return my call. From: BRANDIN XIONG MD To: GRZEGORZ Xiong Nurse; Sent: 11/28/2014 09:47:16 SKI TOW OPERATOR ! Show up: 11/28/2014 09:47:16 SKI TOW OPERATOR Subject: Results Notification Actions: Notify patient of results Reminder Comments: ok Results: Date Result Name Value Ref Range 11/27/2014 09:07 TSH 2.81 mIU/L (0.27 - 4.20) Source: [facility] POWERCHART Document Id: [id number] Electronically signed by Conversion, [facility] Miner Placer [id number] at 04/02/2017 1:54 PM CDT Brandin Malik M.D. - 11/28/2014 9:46 AM CST Results Notification Document Contains Addenda Addendum by BRANDIN XIONG MD on 01 December 2014 07:56:09 SKI TOW OPERATOR From: BRANDIN XIONG MD To: BRANDIN XIONG MD; Sent: 12/01/2014 07:56:09 SKI TOW OPERATOR Show up: 12/01/2014 07:56:00 SKI TOW OPERATOR Subject: RE: Results Notification may stop Addendum by FREDERIC JIMENEZ LPN on 28 November 2014 10:26:57 SKI TOW OPERATOR Patient notified of results. Patient would like to know if she is to continue Vitamin B12? She forgot to ask during her visit. Please advise. Addendum by FREDERIC JIMENEZ LPN on 28 November 2014 10:16:08 SKI TOW OPERATOR Left message for patient to return my call. From: BRANDIN XIONG MD To: GRZEGORZ Xiong Nurse; Sent: 11/28/2014 09:46:58 SKI TOW OPERATOR ! Show up: 11/28/2014 09:46:58 SKI TOW OPERATOR Subject: Results Notification Actions: Notify patient of results Reminder Comments: no growth Results: Date Result Type Ind Result Name MBO Review Culture Urine Source: [facility] SitedeskCHART Document Id: [id number] Electronically signed by Conversion, [facility] Miner Placer [id number] at 04/02/2017 1:54 PM CDT Brandin Malik M.D. - 11/27/2014 10:56 AM CST Results Notification Document Contains Addenda Addendum by IRVIN SALINAS LPN on 27 November 2014 16:25:12 SKI TOW OPERATOR called with results From: BRANDIN XIONG MD To: GRZEGORZ Xiong Nurse; Sent: 11/27/2014 10:56:50 SKI TOW OPERATOR ! Show up: 11/27/2014 10:56:50 SKI TOW OPERATOR Subject: Results Notification Actions: Notify patient of [...] 100) 11/27/2014 09:07 Chol/HDL Ratio 3 Source: [facility] POWERCHART Document Id: [id number] Electronically signed by Conversion, [facility] Placer [id number] at 04/02/2017 1:54 PM CDT Brandin Malik M.D. - 11/27/2014 10:10 AM CST Results Notification Document Contains Addenda Addendum by IRVIN SALINAS LPN on 27 November 2014 16:25:46 SKI TOW OPERATOR called with results From: BRANDIN XIONG MD To: GRZEGORZ Xiong Nurse; Sent: 11/27/2014 10:10:08 SKI TOW OPERATOR ! Show up: 11/27/2014 10:10:08 SKI TOW OPERATOR Subject: Results Notification Actions: Notify patient of [...] 6.0 % A1C ( - <=5.6) Source: [facility] POWERCHART Document Id: [id number] Electronically signed by Antonette, [facility] Miner Placer [id number] at 04/02/2017 1:54 PM CDT Brandin Malik M.D. - 11/27/2014 9:40 AM CST Results Notification Document Contains Addenda Addendum by IRVIN SALINAS LPN on 27 November 2014 16:25:59 SKI TOW OPERATOR called with results From: BRANDIN XIONG MD To: GRZEGORZ Xiong Nurse; Sent: 11/27/2014 09:40:05 SKI TOW OPERATOR ! Show up: 11/27/2014 09:40:05 SKI TOW OPERATOR Subject: Results Notification Actions: Notify patient of [...] Hgb 14.2 g/dL (12.0 - 15.5) Source: [facility] POWERCHART Document Id: [id number] Electronically signed by Antonette, [facility] Miner Placer [id number] at 04/02/2017 1:54 PM CDT Miscellaneous - Brandin Xiong M.D. - 11/27/2014 9:02 AM CST Ambulatory Patient Summary [address] [id number] Visit Information Name: FRANCES HAGER [facility] Number: [id number] Current Date: 11/27/2014 09:02:32 Physicians [...] local Clinic if further appointment detail needed. [id number] Your High Blood Pressure Risk Factors Risk [...] often feel anxious, nervous, and stressed? ?? [id number] [facility], [address] [place] [address], [place] [address]. All rights reserved. This information is not intended as a substitute for professional medical care. Always follow your healthcare professional's instructions. Your Goals/Additional instructions: This document has images extracted. Please consider using [employer] for all your patient education needs. Source: [facility] POWERCHART Document Id: [id number] TOW OPERATOR Miscellaneous - Brandin Xiong M.D. - 11/27/2014 9:02 AM CST Ambulatory Discharge Medication List [address] [id number] Visit Information Name: FRANCES HAGER [facility] Number: [id number] Visit Date: 11/27/2014 09:02:30 Attending [...] MD Signed On:27-NOV-2014 09:02:04 Additional Information: Source: [facility] POWERCHART Document Id: [id number] TOW OPERATOR Irvin Her L.P.NLori - 11/27/2014 8:30 AM CST Health Assessment Health Assessment Entered On: 11/27/2014 8:30 SKI TOW OPERATOR Performed On: 11/27/2014 8:30 SKI TOW OPERATOR by IRVIN SALINAS LPN Health Assessment Complete Health Assessment Complete or Modified : Annual Health Assessment Annual Health Assessment Completed : Yes IRVIN SALINAS LPN - 11/27/2014 8:30 SKI TOW OPERATOR Nutrition Nutrition Risk Factors by History Adult : None SALINAS, IRVINPIERO HIGH LPN - 11/27/2014 8:30 SKI TOW OPERATOR Functional Current Daily Living Assistance : Transportation IRVIN SALINAS LPN - 11/27/2014 8:30 SKI TOW OPERATOR Dependent Habits Tobacco Use/Currently Using : No Exposure to Tobacco Smoke : Other: former smoker Smoking Status : Never smoker IRVIN SALINAS LPN - 11/27/2014 8:30 SKI TOW OPERATOR Caffeine Use Grid Caffeine Use : Current Type : Coffee IRVIN SALINAS LPN - 11/27/2014 8:30 SKI TOW OPERATOR Recreational Drug Use Grid Drug Use : None IRVIN SALINAS LPN - 11/27/2014 8:30 SKI TOW OPERATOR Psychosocial Domestic Abuse Concerns : None Confucianism Preference : No qualifying data available. SALINASIRVIN CHAMPION LPN - 11/27/2014 8:30 SKI TOW OPERATOR Advance Directive Advanced Directives : No Advance Directive Additional Information : No IRVIN SALINAS LPN - 11/27/2014 8:30 SKI TOW OPERATOR Educ Needs Learning Style Preference Adult Grid Patient : Verbal explanation, Printed materials Family : Verbal explanation, Printed materials SARAH IRVINPIERO HIGH LPN - 11/27/2014 8:30 SKI TOW OPERATOR Source: [facility] POWERCHART Document Id: [id number] SKI TOW OPERATOR!29 TOW OPERATOR Irvin Her L.P.N. - 11/27/2014 8:27 AM CST Adult Seam Checker Intake/History Adult Seam Checker Intake/History Entered On: 11/27/2014 8:30 SKI TOW OPERATOR Performed On: 11/27/2014 8:27 SKI TOW OPERATOR by IRVIN SALINAS LPN Intake Chief Complaint [...] kg/m2 IRVIN SALINAS LPN - 11/27/2014 8:27 SKI TOW OPERATOR General Info Information Given By : Patient Languages : [place] Islander Is Patient Female and 13-50 no hysterectomy : No IRVIN SALINAS LPN - 11/27/2014 8:27 SKI TOW OPERATOR Subjective Pain Symptoms : No IRVIN SALINAS LPN - 11/27/2014 8:27 SKI TOW OPERATOR Dependent Habits Tobacco Use/Currently Using : No Exposure to Tobacco Smoke : Other: former smoker Smoking Status : Never smoker IRVIN SALINAS LPN - 11/27/2014 8:27 SKI TOW OPERATOR Caffeine Use Grid Caffeine Use : Current Type : Coffee IRVIN SALINAS LPN - 11/27/2014 8:27 SKI TOW OPERATOR Recreational Drug Use Grid Drug Use : None IRVIN SALINAS LPN - 11/27/2014 8:27 SKI TOW OPERATOR ID Screen Drug Resistant Organism : Yes Travel Within Last 21 Days : No IRVIN SALINAS LPN - 11/27/2014 8:27 SKI TOW OPERATOR Source: [facility] POWERCHART Document Id: [id number] SKI TOW OPERATOR!38 TOW OPERATOR documented in this encounter Plan of Treatment Upcoming Encounters Date Type Specialty Care Team Description 09/27/2022 Office Visit Dermatology Marianela Braden M.D. [address] [place] [address] [phone] (Wo rk) documented as of this encounter Procedures Procedure Name Priority Date/Time Associated Comments Diagnosis BACTERIAL CULTURE, Routine 11/27/2014 9:14 Result s for this AEROBIC, URINE AM SKI TOW OPERATOR procedure are in the results section. URINALYSIS, MIDSTREAM, Routine 11/27/2014 9:13 Re sults for this WITH CULTURE IF AM SKI TOW OPERATOR procedure ar e in INDICATED the results section. ALBUMIN, RANDOM, U Routine 11/27/2014 9:13 Result s for this AM SKI TOW OPERATOR procedure are i n the results section. LIPID PANEL, S Routine 11/27/2014 9:07 Results fo r this AM SKI TOW OPERATOR procedure are i n the results section. HEMOGLOBIN, B Routine 11/27/2014 9:07 Results for this AM SKI TOW OPERATOR procedure are i n the results section. ALANINE AMINOTRANSFERASE Routine 11/27/2014 9:07 Results for this (ALT), S/P AM SKI TOW OPERATOR procedure are i n the results section. THYROID-STIMULATING Routine 11/27/2014 9:07 Resul ts for this HORMONE-SENSITIVE AM SKI TOW OPERATOR procedure are in (S-TSH) the results section. HEMOGLOBIN A1C, B Routine 11/27/2014 9:07 Results for this AM SKI TOW OPERATOR procedure are i n the results section. BASIC METABOLIC PANEL, Routine 11/27/2014 9:07 Re sults for this S/P AM SKI TOW OPERATOR procedure are i n the results section. documented in this encounter Results Bacterial Culture, Aerobic, Urine (11/27/2014 9:14 AM SKI TOW OPERATOR) [facility] Signature Bacterial POWERCHART Culture, Aerobic, Urine HXFinal 3000 POWERCHART colonies/ml gram negative rods HXFinal No further POWERCHART studies done. Specimen Anatomical Collection Method Collection Time Receive d Time (Source) Location / / Volume Laterality Urine, First 11/27/2014 9:14 AM 5 9:14 Voided SKI TOW OPERATOR AM SKI TOW OPERATOR Brandin Xiong M.D. LAB MICROBIOLOGY - GENERAL O RDERABLES Performing Organization Address City/State/ZIP Code Phon e Number POWERCHART Microalbumin, Random, Urine (11/27/2014 9:13 AM SKI TOW OPERATOR) P athologist Signature HXU Albumin % 48 MGDL POWERCHART Creatinine, 214 MGDL POWERCHART Random, U Albumin/Creatin 22 0 - 25 MGGM POWERCHART ine Ratio Specimen (Source) Anatomical Collection Method Collection Time Re ceived Time Location / / Volume Laterality Urine 11/27/2014 9:13 AM SKI TOW OPERATOR Brandin Xiong M.D. LAB URINE ORDERABLES Performing Organization Address [facility] Phon e Number POWERCHART (ABNORMAL) Urinalysis, Midstream, with culture if indicated (11/27/2014 9:13 AM SKI TOW OPERATOR) [facility] gist Method Time Signature HXUr Color Yellow Colorless POWERCHART Clarity Clear Clear POWERCHART Glucose Negative Negative POWERCHART MGDL HXBILIRUBIN Negative Negative POWERCHART Ketones, QL(U) Trace (A) Negative POWERCHART MGDL Specific 1.025 POWERCHART [place], POCT, U HXBLOOD Negative Negative POWERCHART pH, [...] Laterality Urine, First 11/27/2014 9:13 AM Voided SKI TOW OPERATOR Brandin Xiong M.D. LAB URINE ORDERABLES Performing Organization Address [facility] Phon e Number POWERCHART Hemoglobin (11/27/2014 9:07 AM SKI TOW OPERATOR) athologist Signature Hemoglobin 14.2 12.0 - 15.5 POWERCHART GDL Specimen (Source) Anatomical Collection Method Collection Time Re ceived Time Location / / Volume Laterality Blood 11/27/2014 9:07 AM SKI TOW OPERATOR Brandin Xiong M.D. LAB BLOOD ADD-ON Performing Organization Address [facility] Phon e Number POWERCHART Thyroid-Stimulating Hormone-Sensitive (s-TSH) (11/27/2014 9:07 AM SKI TOW OPERATOR) P athologist Signature TSH 2.81 0.27 - 4.20 POWERCHART (Thyrotropin) MIUL Specimen (Source) Anatomical Collection Method Collection Time Re ceived Time Location / / Volume Laterality Blood 11/27/2014 9:07 AM SKI TOW OPERATOR Brandin Xiong M.D. LAB BLOOD ADD-ON Performing Organization Address City/State/ZIP Code Phon e Number POWERCHART Lipid Panel (11/27/2014 9:07 AM SKI TOW OPERATOR) Analysis Performed At Patho logist Time Signature Cholesterol, Total 158 0 - 200 POWERCHART MGDL HX HDL 56.0 40.0 - POWERCHART 60.0 MGDL Triglycerides 143 0 - 150 POWERCHART MGDL Calculated LDL 73 0 - 100 POWERCHART MGDL Total 3 POWERCHART Cholesterol/HDL Ratio Specimen (Source) Anatomical Collection Method Collection Time Re ceived Time Location / / Volume Laterality Blood 11/27/2014 9:07 AM SKI TOW OPERATOR Brandin Xiong M.D. LAB BLOOD ADD-ON Performing Organization Address City/State/ZIP Code Phon e Number POWERCHART (ABNORMAL) BMP (Basic Metabolic Panel) (11/27/2014 9:07 AM SKI TOW OPERATOR) P athologist Signature BUN (Blood Urea 23 [...] MLMIN POWERCHART eGFR >60 >=60 POWERCHART Black/ [id number] [place] Glucose, 87 70 - 99 POWERCHART Fasting, S MGDL Specimen (Source) Anatomical Collection Method Collection Time Re ceived Time Location / / Volume Laterality Blood 11/27/2014 9:07 AM SKI TOW OPERATOR Brandin Xiong M.D. LAB BLOOD ADD-ON Performing Organization Address City/State/ZIP Code Phon e Number POWERCHART ALT (Alanine Aminotransferase) (11/27/2014 9:07 AM SKI TOW OPERATOR) P athologist Signature Alanine 26 9 - 52 POWERCHART Amniotransferas UNITL e, LD Specimen (Source) Anatomical Collection Method Collection Time Re ceived Time Location / / Volume Laterality Blood 11/27/2014 9:07 AM SKI TOW OPERATOR Brandin Xiong M.D. LAB BLOOD ADD-ON Performing Organization Address City/State/ZIP Code Phon e Number POWERCHART (ABNORMAL) Hemoglobin A1c (11/27/2014 9:07 AM SKI TOW OPERATOR) P athologist Signature Hemoglobin A1c, 6.0 (H) <=5.6 A1C POWERCHART B Specimen (Source) Anatomical Collection Method Collection Time Re ceived Time Location / / Volume Laterality Blood 11/27/2014 9:07 AM SKI TOW OPERATOR Brandin Xiong M.D. LAB BLOOD ADD-ON Performing Organization Address City/State/ZIP Code Phon e Number POWERCHART documented in this encounter Visit Diagnoses Not on filedocumented in this encounter Additional Health Concerns Assessment Noted Time PHQ-9 Depression Total Score: 3 05/05/2014 7:55 AM CDT documented as of this encounter
--- OUTSIDE RECORDS SUMMARY | 2022-08-15 00:11 | XMS_ITS | Encounter Summary ---
:1945 Author Organization [facility] Address [address] [place] [address] Care Team Providers Name Role Phone Unavailable Primary Care Provider Unavailable Encounter Details Date Type Department Care Team Description 03/29/2016 Hospital Encounter HX [facility] Naren Ervin M.D. [address] [place] [address] 021 (Wo rk) Social History Tobacco Use [...] indicates had A1c done in April with nurses educator done through her pharmacy, also had medication changes at that time. Pt encouraged to contact insurance anddell determine further coverage. Pt will call clinic to scheduled once has recieved information frominsurance. Electronically Signed By: DARREN MCDONALD LPN On: 07/22/2016 10:04 AM Source: [facility] POWERCHART Document Id: [id number] documented in this encounter Miscellaneous Notes Telephone Encounter - Conversion, Historical Provider Ser - 04/13/2016 4:11 PM CDT *Phone Message From: KONRAD HAJI (GRZEGORZ Carrasquillo Hang Gliding Instructor) To: GRZEGORZ Kruger Nurse; Sent: 04/13/2016 16:11:21 CDT Subject: *Phone Message Caller is: ( x) Patient ( ) Mother ( ) Father ( ) Spouse ( ) Daughter ( ) Son ( ) Pharmacy ( ) Other: Physician: Patient MRN #: Reason for Call: Please call regarding a perscription. She needs to dicuss. [phone] Message: Advice/Action: Source used: ( ) Verbalizes [...] cell phone number ( ) [facility] Document Id: [id number] documented in this encounter Plan of Treatment Upcoming Encounters Date Type Specialty Care Team Description 09/27/2022 Office Visit Dermatology Marianela Braden M.D. [address] [place], [place] [address] [phone] (Wo rk) documented as [...] Depression Total Score: 1 12/02/2015 8:50 AM CHANNEL CEMENTER documented as of this encounter
--- OUTSIDE RECORDS SUMMARY | 2022-08-15 00:11 | XMS_ITS | Encounter Summary ---
:1945 Author Organization [facility] Address [address] [place] [address] Care Team Providers Name Role Phone Unavailable Primary Care Provider Unavailable Encounter Details Date Type Department Care Team Description 08/26/[address] [facility] INTERNMED Jairo Kruger M.D. [address] [place] [address] 021 (Wo rk) Social History Tobacco Use [...] Kruger M.D. - 08/26/2014 8:52 AM CDT [id number] She is checking after a visit to [...] can do things like that. MEDICATIONS Per [facility] EMR. ALLERGIES Per [facility] EMR. SYSTEMS REVIEW Review of systems in all areas except as mentioned above is negative. PREVENTIVE SERVICES: Per [facility] EMR. Handwashing done prior to patient contact. PAST MEDICAL/SURGICAL HISTORY Per [facility] EMR. VITAL SIGNS Per [facility] EMR. PHYSICAL EXAMINATION Examination of her [...] KRUGER MD On: 08/27/2014 07:32 AM Source: [facility] MHSDOLBEYNONRADSYS Document Id: [id number] documented in this encounter Miscellaneous Notes Miscellaneous - Angelica Snyder R.N. - 12/18/2014 9:18 AM CST Med Management Document Contains Addenda Addendum by BRANDIN KRUGER MD on 18 December 2014 09:24:08 [employer]INES From: BRANDIN KRUGER MD Sent: 12/18/2014 09:24:07 [employer]IN[employer] Subject: RE:Med Management Approved Order:lisinopril (lisinopril 40 mg oral tablet) 1 tab(s) PO Daily Qty: 90 tab(s) Refills: 3 Substitutions Allowed Route To [id number] Signed by BRANDIN KRUGER MD 12/18/2014 09:24:03 From: ANGELICA SNYDER To: BRANDIN KRUGER MD; Sent: 12/18/2014 09:18:23 [employer] Subject: Med Management On hold pending signature Order:lisinopril (lisinopril 40 mg oral tablet) 1 tab(s) PO Daily Qty: 90 tab(s) Refills: 3 Substitutions Allowed Route To [id number] Caller is: ( ) Patient [...] to Pharmacy ( ) Patient will picker and sorter load and unload Script ( ) Mail Rx to Patient Source: [facility] POWERCHART Document Id: [id number] Miscellaneous - Shani Hanson RBridget. - 09/29/2014 3:48 PM CST lisinopril Document Contains Addenda Addendum by BRANDIN KRUGER MD on 29 September 2014 15:48:49 LABOR[employer] PIPEL[employer]ES From: BRANDIN KRUGER MD Sent: 09/29/2014 15:48:48 LAB[employer]ELINES Subject: RE:lisinopril Approved Order:lisinopril (lisinopril 20 mg oral tablet) 2 tab(s) PO Daily Qty: 180 tab(s) Refills: 2 Substitutions Allowed Route To Pharmacy [id number] Signed by BRANDIN KRUGER MD 09/29/2014 15:48:44 From: SHANI HANSON ( [place] Medication Refill) To: BRANDIN KRUGER MD; Sent: 09/29/2014 15:48:22 LABORER PIPELINES Subject: lisinopril On hold pending signature Order:lisinopril (lisinopril 20 mg oral tablet) 2 tab(s) PO Daily Qty: 180 tab(s) Refills: 2 Substitutions Allowed Route To [id number] Documented Discontinue:lisinopril (lisinopril 40 mg oral tablet) Signed by SHANI HANSON 09/29/2014 15:47:41 Caller is: ( ) Patient ( ) Mother ( ) Father ( ) Spouse ( ) Daughter ( ) [facility] ( [facility] ( ) Other: Provider: Candace Kruger Pharmacy: Name of Medications Needing Refill: Lisinopril 20 mg-2 tabs po daily.... Last Refill Date: 07/02/14 qty 180 Additional Information:Med in EMR as HX.... Last / Future Appointment: 08/26/14; 10/08/14 Disposition: ( x ) Send to Pharmacy ( ) Call to Pharmacy ( ) Patient will picker and sorter load and unload Script ( ) Mail Rxto Patient Source: [facility] POWERCHART Document Id: [id number] Brandin Malik M.D. - 08/26/2014 10:28 AM [...] Acid 6.0 mg/dL (2.3 - 6.0) Source: [facility] [employer] Document Id: [id number] Brandin Malik M.D. - 08/26/2014 9:33 AM CDT Ambulatory Patient Summary [address] [id number] Visit Information Name: FRANCES HAGER [facility] Number: [id number] Current Date: 08/26/2014 09:33:08 Physicians [...] Appointments Date Time Location Provider 10/08/2014 09:30 [facility] Brandin Kruger MD Attention: Contact your [...] Certain fish (anchovy, sardine, nielson, mackerel) ?? [id number], [place] [address]. All rights reserved. This information is not intended as a substitute for professional medical care. Always follow your healthcare professional's instructions. Your Goals/Additional instructions: This document has images extracted. Please consider using [employer] for all your patient education needs. Source: [facility] POWERCHART Document Id: [id number] Miscellaneous - Brandin Kruger M.D. - 08/26/2014 9:33 AM CDT Ambulatory Discharge Medication List [place] [id number] Visit Information Name: FRANCES HAGER [facility] Number: [id number] Visit Date: 08/26/2014 09:33:05 Attending [...] MD Signed On:26-AUG-2014 09:31:54 Additional Information: Source: [facility] POWERCHART Document Id: [id number] Miscellaneous - Irvin Salinas L.P.N. - 08/26/2014 8:58 AM CDT Adult Ghost Writer Intake/History Adult Ghost Writer Intake/History Entered On: 08/26/2014 9:00 CDT Performed [...] Information Given By : Patient Languages : Guinean Is Patient Female and 13-50 no [...] SALINAS LPN - 08/26/2014 8:58 CDT Source: [facility] POWERCHART Document Id: [id number] documented in this encounter Plan of Treatment Upcoming Encounters Date Type Specialty Care Team Description 09/27/2022 Office Visit Dermatology Marianela Braden M.D. [address] [place], [place] [phone] (Wo rk) documented as [...]
--- OUTSIDE RECORDS SUMMARY | 2022-08-15 00:11 | XMS_ITS | Encounter Summary ---
:1945 Author Organization [facility] Address [address] [place] [address] Care Team Providers Name Role Phone Unavailable Primary Care Provider Unavailable Encounter Details Date Type Department Care Team Description 08/01/[address] [facility] Jairo Mix M.D. [address] [place] [address] 021 (Wo rk) Social History Tobacco Use [...] phys- has questions- call her back at [phone] Advice/Action: Source used: ( ) Verbalizes understanding [...] cell phone number ( ) [facility] Document Id: [id number] Miscellaneous - Lashanda Marks M.D. - 08/01/2016 1:50 PM CDT Results Notification From: LASHANDA MARKS MD To: BRANDIN KRUGER MD; Sent: 08/01/2016 13:50:41 CDT ! Show up: 08/01/2016 13:50:41 CDT Subject: Results Notification Actions: Notify patient of results Results: Date Result Name Ind Value Ref Range 08/01/2016 10:23 Hgb A1c (H) 7.4 % A1C ( - <=5.6) [facility] Document Id: [id number] Electronically signed by Conversion, [facility] Neuropsychiatrist [id number] at 04/02/2017 4:24 AM CDT documented in this encounter Plan of Treatment Upcoming Encounters Date Type Specialty Care Team Description 09/27/2022 Office Visit Dermatology Marianela Braden M.D. [address] [place], [place] [phone] (Wo rk) documented as [...] Depression Total Score: 1 12/02/2015 8:[address] SUPERINTENDENT documented as of this encounter
--- OUTSIDE RECORDS SUMMARY | 2022-08-15 00:11 | XMS_ITS | Encounter Summary ---
:1945 Author Organization [facility] Address [address] [place] [address] Care Team Providers Name Role Phone Unavailable Primary Care Provider Unavailable Encounter Details Date Type Department Care Team Description 03/27/2015 Hospital Encounter HX [facility] Naren Ervin M.D. [address] [place] [phone] (Marty gates) Social History Tobacco [...] Visit Dermatology Marianela Braden M.D. [address] [place], [place] [phone] (Wo rk) documented as [...]
--- OUTSIDE RECORDS SUMMARY | 2022-08-15 00:11 | XMS_ITS | Encounter Summary ---
:1945 Author Organization [facility] Address [address] [place] [address] Care Team Providers Name Role Phone Unavailable Primary Care Provider Unavailable Encounter Details Date Type Department Care Team Description 12/08/2015 Hospital Encounter [facility]X [facility] Jairo Mix M.D. [address] [place] [address] (Wo rk) Social History Tobacco Use [...] JAY RN on January 05, 2017 11:53:03 [employer] rx has been sent. Addendum by SALLY MITTAL RN on January 05, 2017 10:37:09 [employer] sent proposal to DMB From: DANUTA RIVERO CMA ( Brandin Kruger Nurse) To: GRZEGORZ Miller Medication Refill; Sent: 01/05/2017 10:02:24 [employer] Subject: Test strips refill request Caller is: (X) Patient ( ) Mother ( ) Father ( ) Spouse ( ) Daughter ( ) Son ( ) Pharmacy ( ) Other: Provider: Dr. Brandin Kruger Pharmacy: [facility] Name of Medications Needing Refill: One touch ultra blue test strips Last Refill Date: ? Additional Information: Will run out this month. Switched from Christie Moffett to Dr. Kruger Last / Future Appointment: Disposition: (X) Send to Pharmacy ( ) Call to Pharmacy ( ) Patient will fish bait picker Script ( ) Mail Rx to Patient Source: [facility] POWERCHART Document Id: [id number] Electronically signed by Conversion, [facility] [employer] Plans Intelligence Officer Chief [id number] at 04/01/2017 9:47 AM CDT Telephone Encounter - Conversion, Historical Provider Ser - 01/05/2017 9:53 AM CST *Phone Message/D Maryanne Document Contains Addenda Addendum by DANUTA RIVERO CMA on January 05, 2017 10:00:33 [employer] From: DANUTA RIVERO CMA (GRZEGORZ Kruger Nurse) To: BRANDIN KRUGER MD; Sent: 01/05/2017 10:00:33 [employer] Subject: FW: *Phone Message/D Maryanne Addendum by DANUTA RIVERO CMA on January 05, 2017 10:00:16 [employer] Spoke with: (X) Patient ( _ ) Parent ( _ ) Spouse ( _ ) Child ( ) Other: _ Call back telephone number: [phone] Reason for Call: -Rx Chief Complaint: Needs a new script for the Metformin. They aren't willing to give the patient two tablets twice daily at the pharmacy. Pharmacy is [facility]. Patient/Caller response to Education/Information given: (X) Verbalizes [...] day Callers preferred language for Healthcare discussion: Croatian Was an site interpreter used for this call? No Other ( --_ ) From: KATELYN MENDOZA ([address] Nurse) To: GRZEGORZ Kruger Nurse; Sent: 01/05/2017 09:53:55 [employer] Subject: *Phone Message/D Maryanne Caller is: (x ) Patient ( ) Mother ( ) Father ( ) Spouse ( ) Daughter ( ) Son ( ) Pharmacy ( ) Other: Physician: Patient MRN #: Reason for Call: Message: Patient called, in [place], tried to send a rx to [place]. There is a mix up in Metformin,1000 and getting it filled, dosage was increased. She also has another question on another med [phone] Advice/Action: Source used: ( ) Verbalizes understanding [...] back cell phone number ( ) Source: [facility] POWERCHART Document Id: [id number] Miscellaneous - Brandin Kruger M.D. - 12/08/2015 3:31 PM CST Results Notification Document Contains Addenda Addendum by IRVIN SMITH LPN on 08 December 2015 16:30:04 [employer] called with results From: BRANDIN KRUGER MD To: GRZEGORZ Kruger Nurse; Sent: 12/08/2015 15:31:12 [employer] ! Show up: 12/08/2015 15:31:12 [employer] Subject: Results Notification Actions: Notify patient of results Reminder Comments: ok Results: Date Result Name Ind Value Ref Range 12/08/2015 09:43 Cholesterol 158 mg/dL ( - <=199) 12/08/2015 09:43 Trig (H) 173 mg/dL ( - <=149) 12/08/2015 09:43 HDL 54 mg/dL (>=50 - ) 12/08/2015 09:43 LDL Calculated 69 mg/dL ( - <=129) 12/08/2015 09:43 Chol/HDL Ratio 2.93 12/08/2015 09:43 LDL/HDL 1 Source: [facility] POWERCHART Document Id: [id number] Electronically signed by Conversion, [facility] [employer] Plans Intelligence Officer Chief [id number] at 04/01/2017 9:47 AM CDT documented in this encounter Plan of Treatment Upcoming Encounters Date Type Specialty Care Team Description 09/27/2022 Office Visit Dermatology Marianela Braden M.D. [address] [place], [place] [phone] (Wo rk) documented as of this encounter Procedures Procedure Name Priority Date/Time Associated Diagnosis Comme nts LIPID PANEL, S Routine 12/08/2015 9:43 AM Results for this [employer] procedure are i n the results section . documented in this encounter Results (ABNORMAL) Lipid Panel (12/08/2015 9:43 AM [employer]) P athologist Signature Calculated LDL 69 <=129 [...] est[facility] FH and [facility]DB [facility]: FH/ADH Genetic Reflex [place] el (test ADHP). Acquired (non-genetic) causes of markedly increased LDL cholesterol include cholestatic liver disease due to the presence of LpX. If a genetic form of hypercholesterolemia is suspected, family studies including biochemical testing fo r lipids (total cholesterol,triglycerides, LDL cholesterol and HDL cholesterol) are recommended. ??Please contact the laboratory at or the on-line test catalog at [employer] for information about how to order these [...] / Volume Laterality Blood 12/08/2015 9:43 AM [employer] Brandin Kruger M.D. LAB BLOOD ADD-ON Performing Organization Address City/State/ZIP Code Phon e Number POWERCHART documented in this encounter Visit Diagnoses Not on filedocumented in this encounter Additional Health Concerns Assessment Noted Time PHQ-9 Depression Total Score: 1 12/02/2015 8:50 AM [employer] documented as of this encounter
--- OUTSIDE RECORDS SUMMARY | 2022-08-15 00:12 | XMS_ITS | Encounter Summary ---
:1945 Author Organization [facility] Address [address] [place] [address] Care Team Providers Name Role Phone Unavailable Primary Care Provider Unavailable Encounter Details Date Type Department Care Team Description 04/30/2013 Hospital Encounter HX [facility] FBHB INTERNMED Jairo Kruger M.D. [address] [place] [address] 021 (Wo rk) Social History Tobacco Use [...] Kruger M.D. - 04/30/2013 8:24 AM CDT [id number] CHIEF COMPLAINT/REASON FOR VISIT Preventive medicine visit [...] the care plan as outlined below: - Account Development Associate examining fundi once a year. - Hemoglobin [...] TSH. CURRENT MEDICATIONS Post-visit Medication Reconciliation Per [facility] in [place] electronic medical record. ALLERGIES Per [facility] electronic medical record. SYSTEMS REVIEW Review of systems in all areas is asked about and is negative, except as mentioned above. PAST MEDICAL/SURGICAL HISTORY 1. Heavy alcohol use in the past. 2. Moderate obesity. 3. Hypertension. 4. Dyslipidemia. 5. Diabetes mellitus type 2. 6. Probable obsessive compulsive behavior traits. PREVENTIVE SERVICES Per [facility] electronic medical record. Handwashing done prior [...] a first degree relative. VITAL SIGNS Per [facility] electronic medical record. PHYSICAL EXAM SKIN: [...] erythema or exudate, no leuko or erythroplakia. [place] teeth top and bottom. Dental hygiene is [...] physical examination once a year, see an firmware software verification engineer once a year, and see the dentist [...] KRUGER MD On: 05/01/2013 04:37 PM Source: [facility] MHSDOLBEYNONRADSYS Document Id: [id number] documented in this encounter Miscellaneous Notes Miscellaneous - Angelica Synder, R.N. - 01/06/2014 12:28 PM CST Med Management Document Contains Addenda Addendum by ANGELICA SNYDER on 06 January 2014 15:33:57 STUD SHEEP FARMER proposal done. Addendum by BRANDIN KRUGER MD on 06 January 2014 15:05:42 STUD SHEEP FARMER From: BRANDIN KRUGER MD To: ANGELICA SNYDER; Sent: 01/06/2014 15:05:42 STUD SHEEP FARMER Subject: FW: Med Management Addendum by IRVIN SALINAS LPN on 06 January 2014 14:52:08 STUD SHEEP FARMER From: IRVIN SALINAS LPN To: BRANDIN KRUGER MD; Sent: 01/06/2014 14:52:08 STUD SHEEP FARMER Subject: RE: Med Management taking HCTZ 25mg bid and Atenolol 50mg bid Addendum by BRANDIN KRUGER MD on 06 January 2014 14:44:16 STUD SHEEP FARMER From: BRANDIN KRUGER MD To: IRVIN SALINAS LPN; Sent: 01/06/2014 14:44:16 STUD SHEEP FARMER Subject: FW: Med Management Call her and finfd out what atenolol she is taking Addendum by ANGELICA SNYDER on 06 January 2014 14:19:47 STUD SHEEP FARMER From: ANGELICA SNYDER To: BRANDIN KRUGER MD; Sent: 01/06/2014 14:19:47 STUD SHEEP FARMER Subject: FW: Med Management What about the atenolol and HCTZ? --as per the note below. Addendum by BRANDIN KRUGER MD on 06 January 2014 12:54:38 STUD SHEEP FARMER From: BRANDIN KRUGER MD Sent: 01/06/2014 12:54:36 STUD SHEEP FARMER Subject: RE:Med Management Approved Order:atorvastatin (Lipitor 40 mg oral tablet) 1 tab(s) PO Bedtime Qty: 90 tab(s) Refills: 1 Substitutions Allowed Route To [id number] Signed by RBANDIN KRUGER MD 01/06/2014 12:54:31 Approved Order:metFORMIN (metFORMIN 850 mg oral tablet) 1 tab(s) PO 2xDay meal Qty: 180 tab(s) Refills: 1 Substitutions Allowed Route To [id number] Signed by BRANDIN KRUGER MD 01/06/2014 12:54:29 Approved Order:lisinopril (Zestril 40 mg oral tablet) 1 tab(s) PO Daily Qty: 90 tab(s) Refills: 1 Substitutions Allowed Route To [id number] Signed by BRANDIN KRUGER MD 01/06/2014 12:54:28 From: ANGELICA SNYDER To: BRANDIN KRUGER MD; Sent: 01/06/2014 12:28:49 STUD SHEEP FARMER Subject: Med Management On hold pending signature Order:atorvastatin (Lipitor 40 mg oral tablet) 1 tab(s) PO Bedtime Qty: 90 tab(s) Refills: 1 Substitutions Allowed Route To [id number] On hold pending signature Order:metFORMIN (metFORMIN 850 mg oral tablet) 1 tab(s) PO 2xDay meal Qty: 180 tab(s) Refills: 1 Substitutions Allowed Route To [id number] On hold pending signature Order:lisinopril (Zestril 40 mg oral tablet) 1 tab(s) PO Daily Qty: 90 tab(s) Refills: 1 Substitutions Allowed Route To [id number] Documented Discontinue:lisinopril (Zestril 40 mg [...] Medications Needing Refill: Last Refill Date: Additional Information:[facility] is asking for atenolol 50 mg [...] Call to Pharmacy ( ) Patient will pepper picker Script ( ) Mail Rx to Patient Source: [facility] Instant Opinion Document Id: [id number] Electronically signed by Conversion, [facility] Steam Train Driver [id number] at 04/05/2017 7:28 AM CDT Miscellaneous - Brandin Kruger M.D. - 04/30/2013 12:26 PM CDT Results Notification Document Contains Addenda Addendum by IRVIN SALINAS LPN on 02 May 2013 09:38:08 CDT called with results From: BRANDIN KRUGER MD To: IRVIN SALINAS LPN; Sent: 04/30/2013 12:26:10 CDT ! Show up: 04/30/2013 17:26:10 [facility] Subject: Results Notification Actions: Notify patient of results Reminder Comments: good Results: Date Result Name Ind Value Ref Range 04/30/2013 09:01 Hgb A1c (H) 6.1 % A1C (4.0 - 6.0) Source: [facility] Instant Opinion Document Id: [id number] Electronically signed by Conversion, [facility] Steam Train Driver [id number] at 04/05/2017 7:28 AM CDT Brandin Malik [...] (H) 52 mg/gm (0 - 25) Source: [facility] POWERCHART Document Id: [id number] Electronically signed by Conversion, [facility] Steam Train Driver [id number] at 04/05/2017 7:28 AM CDT Brandin Malik M.D. - 04/30/2013 10:05 AM CDT Results Notification Document Contains Addenda Addendum by IRVIN SALINAS LPN on 02 May 2013 09:38:53 CDT called with results Addendum by IRVIN SALNIAS LPN on 02 May 2013 09:38:25 CDT [...] Calculated 53 mg/dL (0 - 100) Source: [facility] POWERCHART Document Id: [id number] Electronically signed by Conversion, [facility] Steam Train Driver [id number] at 04/05/2017 7:28 AM CDT Miscellaneous - Brandin Kruger M.D. - 04/30/2013 9:36 AM CDT Results Notification Document Contains Addenda Addendum by IRVIN SALINAS LPN on 02 May 2013 09:39:10 CDT called with results From: BRANDIN KRUGER MD To: IRVIN SALINAS LPN; Sent: 04/30/2013 09:36:56 CDT ! Show up: 04/30/2013 14:36:56 [facility] Subject: Results Notification Actions: Notify [...] ) 04/30/2013 09:11 UA Appear Clear Source: [facility] POWERCHART Document Id: [id number] Electronically signed by Conversion, [facility] Steam Train Driver [id number] at 04/05/2017 7:28 AM CDT Miscellaneous - Brandin Kruger M.D. - 04/30/2013 9:16 AM CDT Results Notification Document Contains Addenda Addendum by IRVIN SALINAS LPN on 02 May 2013 09:37:52 CDT called with results From: BRANDIN KRUGER MD To: IRVIN SALINAS JEFFREY; Sent: 04/30/2013 09:16:26 CDT ! Show up: 04/30/2013 14:16:26 [facility] Subject: Results Notification Actions: Notify patient of results Reminder Comments: ok Results: Date Result Name Value Ref Range 04/30/2013 09:01 Hgb 14.1 g/dL (12.0 - 15.5) Source: [facility] POWERCHART Document Id: [id number] Electronically signed by Conversion, [facility] Steam Train Driver [id number] at 04/05/2017 7:28 AM CDT Miscellaneous - Brandin Kruger M.D. - 04/30/2013 8:51 AM CDT Ambulatory Depart Summary [address] [address] Visit Information Name: FRANCES HAGER [facility] Number: [id number] Visit Date: 04/30/2013 08:51:11 Attending [...] tablet) 325 mg Oral once a day [facility] Prescription (omega 3 fatty acids-fish) 664/1200mg 1 [...] your provider for clarification. Additional Information: Source: [facility] POWERCHART Document Id: [id number] Miscellaneous - Brandin Kruger M.D. - 04/30/2013 8:51 AM CDT Ambulatory Patient Summary [address] [address] Visit Information Name: FRANCES HAGER [facility] Number: [id number] Current Date: 04/30/2013 08:51:12 Physicians [...] tablet) 325 mg Oral once a day [facility] Prescription (omega 3 fatty acids-fish) 664/1200mg 1 [...] RobUlysses morgan MD Your Goals/Additional instructions: Source: [facility] POWERCHART Document Id: [id number] Miscellaneous - Irvin Salinas L.P.N. - 04/30/2013 8:30 AM CDT Adult Learning Development Specialist Intake/History Adult Learning Development Specialist Intake/History Entered On: 04/30/2013 8:32 CDT Performed [...] Information Given By : Patient Languages : Ukrainian IRVIN SALINAS LPN - 04/30/2013 8:30 CDT Subjective Pain Symptoms : No IRVIN SALINAS LPN - 04/30/2013 8:30 CDT Dependent Habits Tobacco Use/Currently Using : No Smoking Status : Former smoker Alcohol Use : Yes IRVIN SALINAS LPN - 04/30/2013 8:30 CDT Caffeine Use Grid Caffeine Use : Current Type : Coffee IRVIN SALINAS PEDIATRIC NP - 04/30/2013 8:30 CDT Recreational Drug Use Grid Drug Use : None IRVIN SALINAS PEDIATRIC NP - 04/30/2013 8:30 CDT Source: [facility] POWERCHART Document Id: [id number] CDT!32 documented in this encounter Plan of Treatment Upcoming Encounters Date Type Specialty Care Team Description 09/27/2022 Office Visit Dermatology Marianela Braden M.D. [address] [place] [address] [phone] (Wo rk) documented as of this [...] M.D. LAB URINE ORDERABLES Performing Organization Address City/[facility]/ZIP Code Phon e Number POWERCHART (ABNORMAL) Urinalysis, Complete, Includes Microscopic (04/30/2013 9:11 AM CDT) Patholo gist Method Time Signature Protein, Ur, Dip 30 (A) Negative POWERCHART Source Clean Void POWERCHART Urine HXUr Color Yellow POWERCHART Appearance Clear POWERCHART Glucose Negative Negative POWERCHART HXBILIRUBIN Negative Negative POWERCHART Ketones, QL(U) Negative Negative POWERCHART Specific 1.020 1.020 POWERCHART [place], POCT, U pH, POCT, Urine 7.0 5.0 [...] M.D. LAB URINE ORDERABLES Performing Organization Address [facility]/ZIP Code Phon e Number POWERCHART Hemoglobin (04/30/2013 9:01 AM CDT) P athologist Signature Hemoglobin 14.1 12.0 - 15.5 POWERCHART GDL Specimen (Source) Anatomical Collection Method Collection Time Re ceived Time Location / / Volume Laterality Blood 04/30/2013 9:01 AM CDT Brandin Kruger M.D. LAB BLOOD ADD-ON Performing Organization Address City/[facility]/ZIP Code Phon e Number POWERCHART (ABNORMAL) Hemoglobin [...] M.D. LAB BLOOD ADD-ON Performing Organization Address City/[facility]/ZIP Code Phon e Number POWERCHART Lipid Panel [...]
--- OUTSIDE RECORDS SUMMARY | 2022-08-15 00:12 | XMS_ITS | Encounter Summary ---
:1945 Author Organization [facility] Address [address] [place] [address] Care Team Providers Name Role Phone Unavailable Primary Care Provider Unavailable Encounter Details Date Type Department Care Team Description 04/14/2014 - Hospital Encounter HX RST [facility], 04/21/2014 ADDICTIONS Zander Samson M.D., M.S. [address] [place] [phone] Social History Tobacco Use Types Packs/Day Years [...] Office Visit Dermatology Marianela Braden M.D. [address] [place] [address] [phone] (Wo rk) documented as of this encounter Visit Diagnoses Not on filedocumented in this encounter Additional Health Concerns Assessment Noted Time PHQ-9 Depression Total Score: 3 04/07/2014 12:09 PM CD T documented as of this encounter
--- OUTSIDE RECORDS SUMMARY | 2022-08-15 00:12 | XMS_ITS | Encounter Summary ---
:1945 Author Organization [facility] Address [address] [place] [address] Care Team Providers Name Role Phone Unavailable Primary Care Provider Unavailable Encounter Details Date Type Department Care Team Description 11/25/2013 Hospital Encounter HX [facility] FBHB INTERNMED Jairo Kruger M.D. [address] [place] [address] 021 (Wo rk) Social History Tobacco Use Types Packs/Day Years Used Date Smoking Tobacco: Never Assessed Sex Assigned at Date Recorded Not on file documented as of this encounter Last Filed Vital Signs Vital Sign Reading Time Taken Comments Blood Pressure 118/62 11/25/2013 9:03 AM GUEST RELATIONS COORDINATOR Pulse 78 11/25/2013 9:03 AM GUEST RELATIONS COORDINATOR Temperature - - Respiratory Rate 20 11/25/2013 9:03 AM GUEST RELATIONS COORDINATOR Oxygen Saturation - - Inhaled Oxygen Concentration - - Weight 94 kg (207 lb 3.7 oz) 11/25/2013 9:03 AM GUEST RELATIONS COORDINATOR Height 160 cm (5' 2.99) 11/25/2013 9:03 AM GUEST RELATIONS COORDINATOR Body Mass Index 36.72 11/25/2013 9:03 AM GUEST RELATIONS COORDINATOR documented in this encounter Progress Notes Brandin Kruger M.D. - 11/25/2013 8:52 AM CST [id number] She comes in to go through testing. [...] the care plan as outlined below: - Help Desk Internship examining fundi once a year. - Hemoglobin [...] out that she had a mammogram at [facility] in July of 2013, which was normal, and so I will enter that to fill that health maintenance deficiency. She is current on her colonoscopy and did have a polyp. She is due in 5 years. MEDICATIONS Per [facility] EMR. ALLERGIES Per [facility] EMR. SYSTEMS REVIEW Review of systems in all areas except as mentioned above is negative. PREVENTIVE SERVICES: Per [facility] EMR. Handwashing done prior to patient contact. PAST MEDICAL/SURGICAL HISTORY Per [facility] EMR. VITAL SIGNS Per [facility] EMR. PHYSICAL EXAMINATION HEENT: Eyes-Conjunctiva and lids [...] KRUGER MD On: 11/26/2013 09:02 AM Source: [facility] MHSDOLBEYNONRADSYS Document Id: [id number] T RELATIONS COORDINATOR documented in this encounter Miscellaneous Notes Miscellaneous - Brandin Kruger M.D. - 11/25/2013 9:43 AM CST Ambulatory Patient Summary [address] [address] Visit Information Name: FRANCES HAGER [facility] Number: [id number] Current Date: 11/25/2013 09:43:26 [...] a day Stop Taking the Following Medications: [facility] Prescription (omega 3 fatty acids-fish) Medication list [...] appointment detail needed. Your Goals/Additional instructions: Source: [facility] POWERCHART Document Id: [id number] T RELATIONS COORDINATOR Miscellaneous - Brandin Kruger M.D. - 11/25/2013 9:43 AM CST Ambulatory Depart Summary [address] [address] Visit Information Name: FRANCES HAGER [facility] Number: [id number] Visit Date: 11/25/2013 09:43:23 [...] a day Stop Taking the Following Medications: [facility] Prescription (omega 3 fatty acids-fish) Medication list [...] in case of emergency. Additional Information: Source: [facility] POWERCHART Document Id: [id number] T RELATIONS COORDINATOR Miscellaneous - Irvin Salinas, LLoriP.N. - 11/25/2013 9:03 AM CST Adult Environmental Remediation Specialist Intake/History Adult Environmental Remediation Specialist Intake/History Entered On: 11/25/2013 9:07 GUEST RELATIONS COORDINATOR Performed On: 11/25/2013 9:03 GUEST RELATIONS COORDINATOR by IRVNI SALINAS LPN Intake Chief Complaint : recheck [...] 2.04 Body Mass Index : 36.72 kg/m2 IRVNI SALINAS LPN - 11/25/2013 9:03 GUEST RELATIONS COORDINATOR General Info Information Given By : Patient Languages : Liberian IRVIN SALINAS LPN - 11/25/2013 9:03 GUEST RELATIONS COORDINATOR Subjective Pain Symptoms : No IRVIN SALINAS LPN - 11/25/2013 9:03 GUEST RELATIONS COORDINATOR Dependent Habits Tobacco Use/Currently Using : No Exposure to Tobacco Smoke : Other: former smoker Smoking Status : Former smoker Alcohol Use : Yes IRVIN SALINAS LPN - 11/25/2013 9:03 GUEST RELATIONS COORDINATOR Caffeine Use Grid Caffeine Use : Current Type : Coffee IRVIN SALINAS LPN - 11/25/2013 9:03 GUEST RELATIONS COORDINATOR Recreational Drug Use Grid Drug Use : None IRVIN SALINAS LPN - 11/25/2013 9:03 GUEST RELATIONS COORDINATOR Source: [facility] POWERCHART Document Id: [id number] GUEST RELATIONS COORDINATOR!35 T RELATIONS COORDINATOR documented in this encounter Plan of Treatment Upcoming Encounters Date Type Specialty Care Team Description 09/27/2022 Office Visit Dermatology Marianela Braden M.D. [address] [place] [address] [phone] (Wo rk) documented as of this encounter Visit Diagnoses Not on filedocumented in this encounter
--- OUTSIDE RECORDS SUMMARY | 2022-08-15 00:12 | XMS_ITS | Encounter Summary ---
:1945 Author Organization [facility] Address [address] [place] [address] Care Team Providers Name Role Phone Unavailable [...] Visit Dermatology Marianela Braden M.D. [address] [place], [place] [phone] (Wo rk) documented as of this encounter Visit Diagnoses Not on filedocumented in this encounter Additional Health Concerns Assessment Noted Time PHQ-9 Depression Total Score: 3 05/05/2014 7:55 AM CDT documented as of this encounter
--- OUTSIDE RECORDS SUMMARY | 2022-08-15 00:12 | XMS_ITS | Encounter Summary ---
:1945 Author Organization [facility] Address [address] [place] [address] Care Team Providers Name Role Phone Unavailable Primary Care Provider Unavailable Encounter Details Date Type Department Care Team Description 04/16/2014 - Hospital Encounter HX RST [facility], 04/23/2014 ADDICTIONS Zander Samson M.D., M.S. [address] [place] [phone] Social History Tobacco Use Types Packs/Day Years [...] Visit Dermatology Marianela Braden M.D. [address] [place] [phone] (Wo rk) documented as of this encounter Visit Diagnoses Not on filedocumented in this encounter Additional Health Concerns Assessment Noted Time PHQ-9 Depression Total Score: 3 04/07/2014 12:09 PM CD T documented as of this encounter
--- OUTSIDE RECORDS SUMMARY | 2022-08-15 00:12 | XMS_ITS | Encounter Summary ---
:1945 Author Organization [facility] Address [address] [place] [address] Care Team Providers Name Role Phone Unavailable Primary Care Provider Unavailable Encounter Details Date Type Department Care Team Description 03/27/2014 Hospital Encounter HX [facility] FBHB INTERNMED Jairo Kruger M.D. [address] [place] [address] [phone] (Wo rk) Social History Tobacco Use [...] Kruger M.D. - 03/27/2014 9:10 AM CDT [id number] Patient presents today. She has maintained sobriety [...] they think probably April 07. MEDICATIONS Per [facility] EMR. ALLERGIES Per [facility] EMR. SYSTEMS REVIEW Review of systems in all areas except as mentioned above is negative. PREVENTIVE SERVICES: Per [facility] EMR. Handwashing done prior to patient contact. PAST MEDICAL/SURGICAL HISTORY Per [facility] EMR. VITAL SIGNS Per [facility] EMR. PHYSICAL EXAMINATION EENT: Conjunctiva and lids [...] KRUGER MD On: 03/27/2014 10:57 AM Source: [facility] MHSDOLBEYNONRADSYS Document Id: [id number] documented in this encounter Miscellaneous Notes Miscellaneous [...] mg/dL (1.7 - 2.3 - ) Source: [facility] POWERCHART Document Id: [id number] Electronically signed by Antonette [facility] Regional Economist [id number] at 04/03/2017 8:26 PM CDT Miscellaneous - [...] Lvl 9.8 mg/dL (8.5 - 10.5) Source: [facility] POWERCHART Document Id: [id number] Miscellaneous - Brandin Kruger M.D. - 03/27/2014 9:41 AM CDT Ambulatory Patient Summary [address] [id number] Visit Information Name: FRANCES HAGER [facility] Number: [id number] Current Date: 03/27/2014 09:41:15 Physicians [...] Date Time Location Reason Provider 05/26/2014 13:15 [facility] InternMed guido Kruger MD, Brandin Bianchi Attention: Contact your local Clinic if further appointment detail needed. [id number] Your High Blood Pressure Risk Factors Risk [...] often feel anxious, nervous, and stressed? ?? [phone] Ana Gilliam, [address] [place] [address], [place] [id number]. All rights reserved. This information is not intended as a substitute for professional medical care. Always follow your healthcare professional's instructions. Your Goals/Additional instructions: This document has images extracted. Please consider using [employer] for all your patient education needs. Source: [facility] POWERCHART Document Id: [id number] Miscellaneous - Brandin Kruger M.D. - 03/27/2014 9:41 AM CDT Ambulatory Discharge Medication List [address] [id number] Visit Information Name: FRANCES HAGER [facility] Number: [id number] Visit Date: 03/27/2014 09:41:13 Attending [...] MD Signed On:27-MAR-2014 09:40:21 Additional Information: Source: [facility] POWERCHART Document Id: [id number] Miscellaneous - Irvin Salinas L.P.N. - 03/27/2014 9:15 AM CDT Adult Claims Representative Intake/History Adult Claims Representative Intake/History Entered On: 03/27/2014 9:18 CDT Performed [...] Information Given By : Patient Languages : Beninese IRVIN SALINAS LPN - 03/27/2014 9:15 CDT Subjective Pain Symptoms : No IRVIN SALINAS LPN - 03/27/2014 9:15 CDT Dependent Habits Tobacco Use/Currently Using : No Exposure to Tobacco Smoke : Other: former smoker Smoking Status : Never smoker Alcohol Use : No IRVIN SALINAS LPN - 03/27/2014 9:15 CDT Caffeine Use Grid Caffeine Use : Current Type : Coffee IRVIN SALINAS MEDICAL TECHNOLOGIST BLOOD BANK - 03/27/2014 9:15 CDT Recreational Drug Use Grid Drug Use : None IRVIN SALINAS MEDICAL TECHNOLOGIST BLOOD BANK - 03/27/2014 9:15 CDT Source: [facility] POWERCHART Document Id: [id number] CDT!35 documented in this encounter Plan of Treatment Upcoming Encounters Date Type Specialty Care Team Description 09/27/2022 Office Visit Dermatology Marianela Braden M.D. [address] [place] [phone] (Wo rk) documented as of [...] 2.3 POWERCHART MGDL Comment: Test Performed by: [address] [id number] Options Advisor: Gustavo vargas III, M.D. Specimen (Source) Anatomical [...]
--- OUTSIDE RECORDS SUMMARY | 2022-08-15 00:12 | XMS_ITS | Encounter Summary ---
:1945 Author Organization [facility] Address [address] [place] [address] Care Team Providers Name Role Phone Unavailable Primary Care Provider Unavailable Encounter Details Date Type Department Care Team Description 05/06/2013 Hospital Encounter HX [facility] FAMILYPRA Iona Garcia, FREDIS, C.N.P. [address] [place] [address] (Wo rk) Social History Tobacco [...] FREDIS, C.N.P. - 05/06/2013 9:20 AM CDT [id number] CHIEF COMPLAINT/REASON FOR VISIT Diabetes education. HISTORY OF PRESENT ILLNESS Frances is scheduled for diabetes education. She states it has been several years since she has seen a nurse educator. She had A1c checked on 04/30/2013. [...] she had dilated eye exam done in [place] at the [facility] by Dr. Aguila six months ago. Will request a copy of that record. She is checking on immunizations. She states Dr. Kruger did do a foot exam when she saw him. VITAL SIGNS See EMR. PHYSICAL EXAMINATION GENERAL: Well developed, well nourished female in no acute distress. IMPRESSION/REPORT/PLAN Diabetes type 2 controlled. Diabetes education was done today. Please see nurse educator intake form in the EMR. all [...] GARCIA CNP On: 05/08/2013 09:04 AM Source: [facility] MHSDOLBEYNONRADSYS Document Id: [id number] documented in this encounter Nursing Notes Argelia Garcia APRN, C.N.P. - 05/06/2013 2:01 PM CDT Medical Language Specialist Intake (Adult) Medical Language Specialist Intake (Adult) Entered On: 05/06/2013 14:03 CDT Performed On: 05/06/2013 14:01 CDT by ARGELIA GARCIA ETIQUETTE TEACHER Assessment Program Type : Non-Program Diabetes Referring [...] GARCIA CNP - 05/06/2013 14:01 CDT Source: [facility] FoodcloudCHART Document Id: [id number] CDT!39 documented in this encounter Miscellaneous Notes Miscellaneous - Argelia Garcia APRN, C.N.P. - 05/06/2013 2:05 PM CDT Ambulatory Patient Summary [address] [address] Visit Information Name: FRANCES HAGER [facility] Number: [id number] Current Date: 05/06/2013 14:05:30 Physicians [...] 325 mg Oral once a day [facility] Prescription (omega 3 fatty acids-fish) 664/1200mg 1 [...] No Appointments found Your Goals/Additional instructions: Source: [facility] POWERCHART Document Id: [id number] Miscellaneous - Argelia Garcia APRN, C.N.P. - 05/06/2013 2:05 PM CDT Ambulatory Depart Summary [address] [address] Visit Information Name: FRANCES HAGER [facility] Number: [id number] Visit Date: 05/06/2013 14:05:29 Attending Provider: ARGELIA GARCIA [facility] Primary Care Provider: BRANDIN KRUGER MD [...] 325 mg Oral once a day [facility] Prescription (omega 3 fatty acids-fish) 664/1200mg 1 [...] your provider for clarification. Additional Information: Source: [facility] POWERCHART Document Id: [id number] Mispriyankaaneous - Catina Vuong L.PLoriN. - 05/06/2013 9:24 AM CDT Adult Shear Setter Intake/History Adult Shear Setter Intake/History Entered On: 05/06/2013 9:26 CDT Performed [...] Dosing Weight Clinic : 94.7 kg CATINA VUONG - 05/06/2013 9:24 CDT General Info Information Given By : Patient Languages : Cape Verdean CATINA VUONG - 05/06/2013 9:24 CDT Subjective [...] CATINA VUONG - 05/06/2013 9:24 CDT Source: [employer] Document Id: [id number] CDT!27 Miscellaneous - Argelia Garcia APRN, C.NClarence - 01/15/2013 2:21 PM CDT Quality Measures Quality Measures Entered On: 05/06/2013 14:22 CDT Performed On: 01/15/2013 14:21 CDT by ARGELIA GARCIA CNP Diabetes Date of Last Eye Exam : 01/15/2013 CDT ARGELIA GARCIA CNP - 05/06/2013 14:21 CDT Source: [employer] Document Id: [id number] CDT!3 documented in this encounter Plan of Treatment Upcoming Encounters Date Type Specialty Care Team Description 09/27/2022 Office Visit Dermatology Marianela Braden M.D. [address] [place], [place] [phone] (Wo rk) documented as of this encounter Visit Diagnoses Not on filedocumented in this encounter
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
--- OUTSIDE RECORDS SUMMARY | 2022-08-15 00:12 | XMS_ITS | Encounter Summary ---
:1945 Author Organization [facility] Address [address] [place] [address] Care Team Providers Name Role Phone Unavailable Primary Care Provider Unavailable Encounter Details Date Type Department Care Team Description 11/18/2013 Hospital Encounter HX [facility] LAB Jairo Kruger M.D. [address] [place] [address] (Wo rk) Social History Tobacco Use Types Packs/Day Years Used Date Smoking Tobacco: Never Assessed Sex Assigned at Date Recorded Not on file documented as of this encounter Miscellaneous Notes Miscellaneous - Argelia Garcia, FREDIS, C.N.P. - 11/18/2013 10:13 AM ARCH SUPPORT TECHNICIAN Schedule Follow-Up Visit 18 November 2013 FRANCES HAGER [address] [facility] [id number] Dear FRANCES HAGER, Thank you for choosing [facility] for your health care needs. You recently [...] 4.0 - 6.0 Sincerely, ARGELIA GARCIA [address] [place] [address] Electronic Signature Electronically Signed By: ARGELIA GARCIA CNP On: 18 November 2013 This document has images extracted. Source: [facility] POWERCHART Document Id: [id number] Electronically signed by Antonette, [facility] Rolled Glass Crosscutter [id number] at 04/04/2017 2:36 PM CDT documented in this encounter Plan of Treatment Upcoming Encounters Date Type Specialty Care Team Description 09/27/2022 Office Visit Dermatology Marianela Braden M.D. [address] [place], [place] [phone] (Wo rk) documented as of this encounter Procedures Procedure Name Priority Date/Time Associated Comments Diagnosis ALBUMIN, RANDOM, U Routine 11/18/2013 8:13 Result s for this AM ARCH SUPPORT TECHNICIAN procedure are i n the results section. LIPID PANEL, S Routine 11/18/2013 8:07 Results fo r this AM ARCH SUPPORT TECHNICIAN procedure are i n the results section. ASPARTATE Routine 11/18/2013 8:07 Results for this AMINOTRANSFERASE (AST), AM ARCH SUPPORT TECHNICIAN proc edure are in S/P the results section. HEMOGLOBIN A1C, B Routine 11/18/2013 8:07 Results for this AM ARCH SUPPORT TECHNICIAN procedure are i n the results section. BASIC METABOLIC PANEL, Routine 11/18/2013 8:07 Re sults for this S/P AM ARCH SUPPORT TECHNICIAN procedure are i n the results section. documented in this encounter Results Microalbumin, Random, Urine (11/18/2013 8:13 AM ARCH SUPPORT TECHNICIAN) P athologist Signature HXU Albumin % 29 MGDL POWERCHART Creatinine, 116 MGDL POWERCHART Random, U Albumin/Creatin 25 0 - 25 MGGM POWERCHART ine Ratio Specimen (Source) Anatomical Collection Method Collection Time Re ceived Time Location / / Volume Laterality Urine 11/18/2013 8:13 AM ARCH SUPPORT TECHNICIAN Argelia Garcia APRN, C.N.P. LAB URINE ORDERABLES Performing Organization Address City/State/ZIP Code Phon e Number POWERCHART (ABNORMAL) Lipid Panel (11/18/2013 8:07 AM ARCH SUPPORT TECHNICIAN) [facility] Method Time Signature Cholesterol, 183 0 - 200 POWERCHART Total MGDL HX HDL 63.0 (H) 40.0 - POWERCHART 60.0 MGDL Triglycerides 202 (H) 0 - 150 POWERCHART MGDL Calculated LDL 80 0 - 100 POWERCHART MGDL Specimen (Source) Anatomical Collection Method Collection Time Re ceived Time Location / / Volume Laterality Blood 11/18/2013 8:07 AM ARCH SUPPORT TECHNICIAN Argelia Garcia APRN, C.N.P. LAB BLOOD ADD-ON Performing Organization Address City/State/ZIP Code Phon e Number POWERCHART AST (Aspartate Aminotransferase) (11/18/2013 8:07 AM ARCH SUPPORT TECHNICIAN) Patholo gist Method Time Signature Aspartate 27 8 - 43 POWERCHART Aminotransferase UNITL (AST), S Specimen (Source) Anatomical Collection Method Collection Time Re ceived Time Location / / Volume Laterality Blood 11/18/2013 8:07 AM ARCH SUPPORT TECHNICIAN Daria Cullen APRNN.PLori LAB BLOOD ADD-ON Performing Organization Address City/[facility] Code Phon e Number POWERCHART Hemoglobin A1c (11/18/2013 8:07 AM ARCH SUPPORT TECHNICIAN) P athologist Signature Hemoglobin A1c, 6.0 4.0 - 6.0 POWERCHART B A1C Specimen (Source) Anatomical Collection Method Collection Time Re ceived Time Location / / Volume Laterality Blood 11/18/2013 8:07 AM ARCH SUPPORT TECHNICIAN Daria Cullen APRNN.Jenni LAB BLOOD ADD-ON Performing Organization Address City/[facility] Phon e Number POWERCHART (ABNORMAL) BMP (Basic Metabolic Panel) (11/18/2013 8:07 AM ARCH SUPPORT TECHNICIAN) P athologist Signature BUN (Blood Urea 20 [...] / Volume Laterality Blood 11/18/2013 8:07 AM ARCH SUPPORT TECHNICIAN Reyna Cullen APRN.N.P. LAB BLOOD ADD-ON Performing Organization Address City/State/ZIP Code Phon e Number POWERCHART documented in this encounter Visit Diagnoses Not on filedocumented in this encounter
--- OUTSIDE RECORDS SUMMARY | 2022-08-15 00:12 | XMS_ITS | Encounter Summary ---
:1945 Author Organization [facility] Address [address] [place] [address] Care Team Providers Name Role Phone Unavailable Primary Care Provider Unavailable Encounter Details Date Type Department Care Team Description 02/27/2014 Hospital Encounter HX [facility] INTERNMED Jairo Kruger M.D. [address] [place] [address] (Wo rk) Social History Tobacco Use [...] Body Mass Index 36.02 11/25/2013 9:03 AM PAVER LAYER documented in this encounter Progress Notes Brandin Kruger M.D. - 02/27/2014 12:55 PM CDT [id number] Ms. Meek presents today with a lot [...] We will make an appointment down at [place] with Psychiatry. I think that the main [...] with the psychiatrist as soon as possible. Brandni Kruger M.D./cipriano Electronically Signed By: BRANDIN KRUGER MD On: 02/27/2014 03:15 PM Source: [facility] MHSDOLBEYNONRADSYS Document Id: [id number] documented in this encounter Miscellaneous Notes Miscellaneous - Angelica Snyder RLoriNLori - 03/10/2014 4:16 PM CDT Medication Refill Msg Document Contains Addenda Addendum by BRANDIN KRGUER MD on 10 Mar 2014 20:34:28 CDT [...] Pharmacy ( ) Other: Provider: [facility]acy: [facility] Name of Medications Needing Refill:metformin 850 mg or 500mg pharmacy received both -- the 850 is completed Last Refill Date: Additional Information: Last / Future Appointment: Disposition: ( ) Send to Pharmacy ( ) Call to Pharmacy ( ) Patient will picket labor union Script ( ) Mail Rx to Patient Source: [facility] POWERCHART Document Id: [id number] Electronically signed by Antonette [facility] Thread Dresser [id number] at 04/03/2017 9:39 PM CDT Miscellaneous - Dary Wilkins, L.P.N. - 02/27/2014 1:02 PM CDT Adult Butter Melter Intake/History Document Has Been Updated Adult Butter Melter Intake/History Entered On: 02/27/2014 13:08 CDT Performed [...] Preferred Communication Mode : Verbal Languages : Hungarian WILKINSDARY - 02/27/2014 13:02 CDT Subjective Pain [...] None DARY WILKINS 02/27/2014 13:02 CDT Source: [employer] Document Id: [id number] CDT!3 documented in this encounter Plan of Treatment Upcoming Encounters Date Type Specialty Care Team Description 09/27/2022 Office Visit Dermatology Marianela Braden M.D. [address] [place], [place] [phone] (Wo rk) documented as of this encounter Visit Diagnoses Not on filedocumented in this encounter
--- OUTSIDE RECORDS SUMMARY | 2022-08-15 00:12 | XMS_ITS | Encounter Summary ---
:1945 Author Organization [facility] Address [address] [place] [address] Care Team Providers Name Role Phone Unavailable [...] Visit Dermatology Marianela Braden M.D. [address] [place], [place] [phone] (Wo rk) documented as [...] Received Time / Laterality Volume 04/25/2013 Narrative [facility] - 05/13/20 13 8:49 AM CDT PATIENT IMAGES Choose the Image button to view related documents. Historical Provider LAB SURG PATH ORDERABLES Performing Organization Address City/State/ZIP Code [facility] e Number [facility] documented in this encounter Visit Diagnoses Not on filedocumented in this encounter
--- OUTSIDE RECORDS SUMMARY | 2022-08-15 00:12 | XMS_ITS | Encounter Summary ---
:1945 Author Organization [facility] Address [address] [place] [address] Care Team Providers Name Role Phone Unavailable Primary Care Provider Unavailable Encounter Details Date Type Department Care Team Description 03/10/2014 Hospital Encounter HX [facility] FBHB INTERNMED Jairo Kruger M.D. 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 - 03/10/2014 3:10 PM CDT [id number] DISCHARGE DATE 03/09/2014, from [facility]. ADMISSION [...] at an art show up in the [facility] and had a number of near syncopal episodes and they suspected orthostatic hypotension and found that at [place]. They removed her hydrochlorothiazide which was a [...] make her chemical dependency appointment anew at [place], as they canceled the appointment which was at 1:45 today, and that she is able to exercise at [facility] and proceed normally at this point with these changes in medications. MEDICATIONS Per [facility] EMR. ALLERGIES Per [facility] EMR. SYSTEMS REVIEW Review of systems in all areas except as mentioned above is negative. PREVENTIVE SERVICES: Per [facility] EMR. Handwashing done prior to patient contact. PAST MEDICAL/SURGICAL HISTORY Per [facility] EMR. VITAL SIGNS Per [facility] EMR. PHYSICAL EXAMINATION Not performed. IMPRESSION/REPORT/PLAN 1. [...] Apparently 1 week dry. She should call [place] and make a reappointment for the appointment with Chemical Dependency that they missed today. 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 Continue on Protonix and abstain from alcohol. 5. Hypertension. Blood pressure is likely to improve as she is off alcohol, so I will drop her atenolol from 50 twice a day to 50 once a day at [facility], effective today. The patient had a BMP today, will call with results. The patient should come see me 1 week after she has her chemical dependency appointment at [place]. TIME COMPONENT All of it counseling. Brandin Kruger M.D./cipriano Electronically Signed By: BRANDIN KRUGER MD On: 03/10/2014 08:32 PM Source: [facility] MHSDOLBEYNONRADSYS Document Id: [id number] documented in this encounter Miscellaneous Notes Miscellaneous [...] Lvl 9.3 mg/dL (8.5 - 10.5) Source: [facility] POWERCHART Document Id: [id number] Electronically signed by Antonette [facility] Supervisor Fertilizer [id number] at 04/04/2017 5:49 AM CDT Miscellaneous - Brandin Kruger M.D. - 03/10/2014 3:39 PM CDT Ambulatory Patient Summary [address] [id number] Visit Information Name: FRANCES HAGER [facility] Number: [id number] Current Date: 03/10/2014 15:39:38 Physicians [...] meals This is a CHANGE Routed to [address] [address] multivitamin (multivitamin) Oral, once a [...] Date Time Location Reason Provider 03/27/2014 09:30 [facility] check on med Brandin Kruger MD 05/26/2014 13:15 [facility] recheck Brandin Kruger MD Attention: Contact your local Clinic if further appointment detail needed. Your Goals/Additional instructions: Source: [facility] POWERCHART Document Id: [id number] Miscellaneous - Brandin Kruger M.D. - 03/10/2014 3:39 PM CDT Ambulatory Discharge Medication List [address] [id number] Visit Information Name: FRANCES HAGER [facility] Number: [id number] Visit Date: 03/10/2014 15:39:36 Attending [...] meals This is a CHANGE Routed to [address] [address] multivitamin (multivitamin) Oral, once a day multivitamin [...] MD Signed On:10-MAR-2014 15:39:29 Additional Information: Source: [facility] POWERCHART Document Id: [id number] Miscellaneous - Irvin Salinas L.PLoriN. - 03/10/2014 3:17 PM CDT Adult Occupational Health And Safety Adviser Intake/History Adult Occupational Health And Safety Adviser Intake/History Entered On: 03/10/2014 15:18 CDT Performed [...] Information Given By : Patient Languages : Trinidadian IRVIN SALINAS LPN - 03/10/2014 15:17 CDT Subjective Pain Symptoms : IRVIN Irizarry LPN - 03/10/2014 15:17 CDT Dependent Habits Tobacco Use/Currently Using : No Exposure to Tobacco Smoke : Other: former smoker Smoking Status : Never smoker Alcohol Use : No IRVIN SALINAS LPN - 03/10/2014 15:17 CDT Caffeine Use Grid Caffeine Use : Current Type : Coffee IRVIN SALINAS AVIATION MEDICINE SPECIALIST - 03/10/2014 15:17 CDT Recreational Drug Use Grid Drug Use : None IRVIN SALINAS JEFFREY - 03/10/2014 15:17 CDT Source: [facility] POWERCHART Document Id: [id number] CDT!30 documented in this encounter Plan of Treatment Upcoming Encounters Date Type Specialty Care Team Description 09/27/2022 Office Visit Dermatology Marianela Braden M.D. [address] [place] [phone] (Wo rk) documented as of this [...]
--- OUTSIDE RECORDS SUMMARY | 2022-08-15 00:12 | XMS_ITS | Encounter Summary ---
:1945 Author Organization [facility] Address [address] [place] [address] Care Team Providers Name Role Phone Unavailable Primary Care Provider Unavailable Encounter Details Date Type Department Care Team Description 04/11/2013 Hospital Encounter HX [facility] INTERNMED Jairo Kruger M.D. [address] [place] [address] 021 (Wo rk) Social History Tobacco Use [...] Kruger M.D. - 04/11/2013 10:23 AM CDT [id number] CHIEF COMPLAINT / REASON FOR VISIT New [...] [facility] [place]. IMPRESSION/REPORT/PLAN Her diabetes, hypertension and dyslipidemia are [...] [facility], folate and TSH today. I have asked them to call neurology in [place], [place] or [place] as it is impossible to get in in [place] and see if she can be gotten in. So in all today, she had a BMP, a B12 and folate, a hepatic panel and studies scheduled, a colonoscopy, a CT head of contrast, and they are scheduled to make an appointment with [facility] here in [place] and also try with Dr. Salomon for neurology in [facility]. I will set her up in two weeks for a complete physical here. Time component 45 minutes. Brandin Kruger M.D./charlotte Electronically Signed By: BRANDIN KRUGER MD On: 04/16/2013 07:00 AM Source: [facility] MHSDOLBEYNONRADSYS Document Id: [id number] documented in this encounter Nursing Notes Prosper Brunner - 04/23/2013 10:47 AM CDT Prior Authorization [place] [address] Referral Authorization: Procedure or visit authorized for: Colonoscopy (CPT code G0121 per Aide Samson) Referred by: Dr. Moe Kruger Contact Location: [facility] Contact Referred to: Dr. Alegre Contact Location: [facility] Contact Authorization Needed: yes or ____x__ no If yes, Referral valid: From: To: Number of visits approved for: Authorized by: Heidy Contact Number: Date Authorized: 04/23/2013 Reference Number: or ___x__ not applicable per Catalytic Converter Operator Helper. Individual that received the Referral Authorization: LML Electronically Signed By: PROSPER BRUNNER On: 04/23/2013 10:48 AM Source: [facility] POWERCHART Document Id: [id number] Prosper Brunner - 04/17/2013 1:45 PM CDT Colonoscopy DATE: 04/17/2013 SCHEDULED FOR: Colonoscopy AT [facility] WITH DR. ALEGRE DATE of Procedure: 04/25/2013 TIME of Procedure: 9:45 PER: DARVIN /DR. SCHAEFFER ORDERS. Prep instructions have been sent to the patient. Patient advised to not take aspirin or ibuprofen for 10 days prior to the scheduled procedure. Insurance referral done _x_Yes __No Copies of referring healthcare provider notes sent to [facility]. Electronically Signed By: PROSPER BRUNNER On: 04/17/2013 01:45 PM [facility] Document Id: [id number] Prosper Brunner - 04/12/2013 10:19 AM CDT Colonoscopy [facility] [place] [address] Patient Communication for follow up treatment for: __Colonoscopy __ Attempt made to contact patient made on: ___04/12/13 . a. Patient is schedule to be seen on: . b. Patient is refusing recommended treatment at this time. c. ___x__ Message left for the patient at : ____[phone]____bq return call to: Prosper Brunner LPN at [phone]. d. Individual that has contacted the patient: [...] PROSPER BRUNNER On: 04/12/2013 10:21 AM Source: [employer] Document Id: [id number] documented in this encounter Miscellaneous Notes Miscellaneous - Prosper Brunner - 04/17/2013 1:47 PM CDT General Message From: PROSPER BRUNNER ( Surgery Nurse) To: BRANDIN KRUGER MD; Sent: 04/17/2013 13:47:31 CDT Subject: General Message Pt scheduled for colonoscopy on April 25. Source: [employer] Document Id: [id number] Miscellaneous - Brandin Kruger M.D. - 04/12/2013 9:05 AM CDT Results Notification Document Contains Addenda Addendum by IRVIN SALINAS LPN on 12 April 2013 16:32:53 CDT called with results From: BRANDIN KRUGER MD To: IRVIN SALINAS LPN; Sent: 04/12/2013 09:05:50 CDT ! Show up: 04/12/2013 14:05:50 [facility] Subject: Results Notification Actions: Notify patient of results Reminder Comments: okl Results: Date Result Name Ind Value Ref Range 04/11/2013 11:39 Vitamin B12 Lvl-Scott (H) 1,350 ng/L (180 - 914 - ) 04/11/2013 11:39 Folate Lvl-Scott >20.0 mcg/L (>=4.0 - ) 04/11/2013 11:39 TSH, Sensitive-Scott 1.0 mIU/L (0.3-5.0 - ) Source: [employer] Document Id: [id number] Electronically signed by Conversion, [facility] Bowstring Maker [id number] at 04/04/2017 11:25 PM CDT Miscellaneous - Brandin Kruger M.D. - 04/11/2013 12:46 PM CDT Results Notification Document Contains Addenda Addendum by IRVIN SALINAS LPN on 12 April 2013 16:32:40 CDT called with results From: BRANDIN KRUGER MD To: IRVIN SALINAS LPN; Sent: 04/11/2013 12:46:09 CDT ! Show up: 04/11/2013 17:46:09 [facility] Subject: Results Notification Actions: Notify patient [...] Direct 0.2 mg/dL (0.0 - 0.3) Source: [facility] POWERCHART Document Id: [id number] Electronically signed by Conversion, [facility] Bowstring Maker [id number] at 04/04/2017 11:25 PM CDT Miscellaneous - Brandin Kruger M.D. - 04/11/2013 11:21 AM CDT Ambulatory Patient Summary [address] [address] Visit Information Name: FRANCES HAGER [facility] Number: [id number] Current Date: 04/11/2013 11:21:53 Physicians [...] 325 mg Oral once a day [facility] Prescription (omega 3 fatty acids-fish) 664/1200mg 1 [...] No Appointments found Your Goals/Additional instructions: Source: [facility] POWERCHART Document Id: [id number] Miscellaneous - Brandin Kruger M.D. - 04/11/2013 11:21 AM CDT Ambulatory Depart Summary [address] [address] Visit Information Name: FRANCES HAGER [facility] Number: [id number] Visit Date: 04/11/2013 11:21:52 Attending [...] 325 mg Oral once a day [facility] Prescription (omega 3 fatty acids-fish) 664/1200mg 1 [...] your provider for clarification. Additional Information: Source: [facility] POWERCHART Document Id: [id number] Jimmie - Brandin Kruger M.D. - 04/11/2013 11:20 AM CDT General Message Document Contains Addenda Addendum by PROSPER BRUNNER on 12 April 2013 10:21:31 CDT Message left for pt to return call to schedule colonoscopy. From: BRANDIN KRUGER MD To: Surgery Nurse; Sent: 04/11/2013 11:20:43 CDT Subject: General Message Needs screening colon never had one. Source: [facility] POWERCHART Document Id: [id number] Electronically signed by Antonette [facility] Bowstring Maker [id number] at 04/04/2017 11:25 PM CDT Jimmie - Irvin Salinas L.P.N. - 04/11/2013 10:37 AM CDT Health Assessment Health Assessment Entered On: 04/11/2013 10:38 CDT Performed On: 04/11/2013 10:37 CDT by IRVIN SALINAS LPN Health Assessment Complete Health Assessment Complete or Modified : Annual Health Assessment Annual Health Assessment Completed : Yes IRVIN SALINAS LPN - 04/11/2013 10:37 CDT Nutrition Nutrition [...] explanation, Printed materials IRVIN SALINAS LPN - 04/11/2013 10:37 CDT Source: [facility] POWERCHART Document Id: [id number] CDT!26 Miscellaneous - Irvin Salinas L.PLoriNLori - 04/11/2013 10:34 AM CDT Adult Metal Control Worker Intake/History Adult Metal Control Worker Intake/History Entered On: 04/11/2013 10:37 CDT Performed [...] Information Given By : Patient Languages : Tanzanian SALINAS IRVINPIERO HIGH LPN - 04/11/2013 10:34 CDT Subjective Pain Symptoms : No IRVIN SALINAS LPN - 04/11/2013 10:34 CDT Dependent Habits Tobacco Use/Currently Using : No Smoking Status : Former smoker Alcohol Use : Yes IRVIN SALINAS PLASTICS PROCESS HAND - 04/11/2013 10:34 CDT Caffeine Use Grid Caffeine Use : Current Type : Coffee IRVIN SALINAS PLASTICS PROCESS HAND - 04/11/2013 10:34 CDT Recreational Drug Use Grid Drug Use : None IRVIN SALINAS PLASTICS PROCESS HAND - 04/11/2013 10:34 CDT Source: [facility] POWERCHART Document Id: [id number] CDT!33 documented in this encounter Plan of Treatment Upcoming Encounters Date Type Specialty Care Team Description 09/27/2022 Office Visit Dermatology Marianela Braden M.D. [address] [place] [address] [phone] (Wo rk) documented as of [...] >=4.0 [facility] POWERCHART Comment: Test Performed by: [facility] [address] [place] [id number] Issuer: Gustavo vargas III, M.D. Specimen (Source) Anatomical Collection Method Collection Time Re ceived Time Location / / Volume Laterality Blood 04/11/2013 11:39 AM CDT Brandin Kruger M.D. LAB BLOOD NON ADD-ON Performing Organization Address City/[facility]/ZIP Code Phon e Number POWERCHART Thyroid-Stimulating Hormone-Sensitive (s-TSH) (04/11/2013 11:39 AM CDT) athologist Signature TSH, Sensitive 1.0 0.3 - 5.0 POWERCHART MIUL Comment: Test Performed by: [place] [address] Issuer: Gustavo vargas III, M.D. Specimen (Source) Anatomical Collection Method Collection Time Re ceived Time Location / / Volume Laterality Blood 04/11/2013 11:39 AM CDT Brandin Kruger M.D. LAB BLOOD ADD-ON Performing Organization Address [facility] Phon e Number POWERCHART (ABNORMAL) Hepatic Function Panel (04/11/2013 11:39 AM CDT) [facility] Method Time Signature Albumin, S 4.3 [...] M.D. LAB BLOOD ADD-ON Performing Organization Address City/[facility]/ZIP Code Phon e Number POWERCHART [...]
--- OUTSIDE RECORDS SUMMARY | 2022-08-15 00:12 | XMS_ITS | Encounter Summary ---
:1945 Author Organization [facility] Address [address] [place] [address] Care Team Providers Name Role Phone Unavailable [...] Alegre M.D. - 05/02/2013 1:38 PM CDT [id number] CHIEF COMPLAINT/REASON FOR VISIT Followup after colonoscopy. [...] ALEGRE MD On: 05/13/2013 08:48 AM Source: [facility] MHSDOLBEYNONRADSYS Document Id: [id number] documented in this encounter Miscellaneous Notes Miscellaneous [...] Patient ( ) ( ) Call for Rn Clinical ( ) Follow up on Results ( ) Other: PROVIDER: ( ) Call Physician ( ) Call Pharmacist ( ) Call Lab ( ) Other: Special Instructions: Comments: Source: [facility] POWERCHART Document Id: [id number] Electronically signed by Antonette [facility] Spine Surgeon [id number] at 04/05/2017 7:28 AM CDT Miscellaneous - Ulysses Alegre M.D. - 05/02/2013 3:04 PM CDT Ambulatory [place] [address] Visit Information Name: FRANCES HAGER [facility] Number: [id number] Current Date: 05/02/2013 15:04:24 Physicians [...] No Appointments found Your Goals/Additional instructions: Source: [facility] POWERCHART Document Id: [id number] Miscellaneous - Ulysses Alegre M.D. - 05/02/2013 3:04 PM CDT Ambulatory [place] [address] Visit Information Name: FRANCES HAGER [facility] Number: [id number] Visit Date: 05/02/2013 15:04:23 Attending [...] your provider for clarification. Additional Information: Source: [facility] POWERCHART Document Id: [id number] Miscellaneous - Dary Wilkins, L.P.N. - 05/02/2013 1:57 PM CDT Adult Systems Management Consultant Intake/History Adult Systems Management Consultant Intake/History Entered On: 05/02/2013 14:01 CDT Performed [...] Preferred Communication Mode : Verbal Languages : Malay WILKINSDARY - 05/02/2013 13:57 CDT Subjective Pain [...] DARY WILKINS - 05/02/2013 13:57 CDT [facility] Document Id: [id number] CDT!28 documented in this encounter Plan of Treatment Upcoming Encounters Date Type Specialty Care Team Description 09/27/2022 Office Visit Dermatology Marianela Braden M.D. [address] [place], [place] [phone] (Wo rk) documented as of this encounter Visit Diagnoses Not on filedocumented in this encounter
--- OUTSIDE RECORDS SUMMARY | 2022-08-15 00:12 | XMS_ITS | Encounter Summary ---
:1945 Author Organization [facility] Address [address] [place] [address] Care Team Providers Name Role Phone Unavailable Primary Care Provider Unavailable Encounter Details Date Type Department Care Team Description 11/25/2013 Hospital Encounter HX [facility] FBHB FAMILYPRA Iona Garcia, FREDIS, C.N.P. [address] [place] [address] (Wo rk) Social History Tobacco Use Types Packs/Day Years Used Date Smoking Tobacco: Never Assessed Sex Assigned at Date Recorded Not on file documented as of this encounter Last Filed Vital Signs Vital Sign Reading Time Taken Comments Blood Pressure 110/58 11/25/2013 8:18 AM SERVICE STATION EQUIPMENT MECHANIC Pulse 72 11/25/2013 8:18 AM SERVICE STATION EQUIPMENT MECHANIC Temperature - - Respiratory Rate - - Oxygen Saturation - - Inhaled Oxygen Concentration - - Weight 94 kg (207 lb 3.7 oz) 11/25/2013 8:18 AM SERVICE STATION EQUIPMENT MECHANIC Height - - Body Mass Index 37.09 08/21/2013 1:10 PM CDT documented in this encounter Progress Notes Argelia Garcia, FREDIS, C.N.P. - 11/25/2013 8:03 AM CST [id number] CHIEF COMPLAINT/REASON FOR VISIT 1. Diabetes type [...] GARCIA CNP On: 11/26/2013 07:56 AM Source: [facility] MHSDOLBEYNONRADSYS Document Id: [id number] ICE STATION EQUIPMENT MECHANIC documented in this encounter Miscellaneous Notes Miscellaneous - Argelia Garcia APRN, C.N.P. - 11/25/2013 9:35 AM CST General Message From: ARGELIA GARCIA CNP To: FRANCES HAGER Sent: 11/25/2013 09:35:10 SERVICE STATION EQUIPMENT MECHANIC Subject: General Message Frances, I thought I would try the Patient Portal and see if it is working for you. Your last Tetanus booster(including whooping cough) was given on September 07, 2010. It is good for 10 years. Argelia Source: [facility] POWERCHART Document Id: [id number] Miscellaneous - Argelia Garcia, FREDIS, C.N.P. - 11/25/2013 8:39 AM CST Ambulatory Patient Summary [address] [address] Visit Information Name: FRANCES HAGER [facility] Number: [id number] Current Date: 11/25/2013 08:39:45 Physicians Attending Provider: ARGELIA GARCIA PRINT PRODUCTION MANAGER Primary Care Provider: BRANDIN KRUGER MD FRANCES [...] Oral, two times a day with meals [facility] Prescription (omega 3 fatty acids-fish) 664/1200mg 1 [...] appointment detail needed. Your Goals/Additional instructions: Source: [facility] POWERCHART Document Id: [id number] ICE STATION EQUIPMENT MECHANIC Miscellaneous - Argelia Garcia APRN, C.N.P. - 11/25/2013 8:39 AM CST Ambulatory Depart Summary [address] [address] Visit Information Name: FRANCES HAGER [facility] Number: [id number] Visit Date: 11/25/2013 08:39:43 Attending [...] Oral, two times a day with meals [facility] Prescription (omega 3 fatty acids-fish) 664/1200mg 1 [...] in case of emergency. Additional Information: Source: [facility] POWERCHART Document Id: [id number] ICE STATION EQUIPMENT MECHANIC Miscellaneous - Argelia Garcia APRN, C.N.P. - 11/25/2013 8:34 AM CST Quality Measures Quality Measures Entered On: 11/25/2013 8:34 SERVICE STATION EQUIPMENT MECHANIC Performed On: 11/25/2013 8:34 SERVICE STATION EQUIPMENT MECHANIC by ARGELIA GARCIA CNP Diabetes Date of Last Foot Exam : 11/25/2013 SERVICE STATION EQUIPMENT MECHANIC ARGELIA GARCIA CNP - 11/25/2013 8:34 SERVICE STATION EQUIPMENT MECHANIC Foot Exam Grid Left foot exam Right foot exam Dorsalis Pedis Pulse : Normal Normal Capillary Refill : Less than 3 seconds Less than 3 seconds 10 gm Monofilament Sensation Check : Intact Intact ARGELIA GARCIA [facility] - 11/25/2013 8:34 SERVICE STATION EQUIPMENT MECHANIC ARGELIA GARCIA [facility] - 11/25/2013 8:34 SERVICE STATION EQUIPMENT MECHANIC Source: [place] Document Id: [id number] SERVICE STATION EQUIPMENT MECHANIC!12 ICE STATION EQUIPMENT MECHANIC Miscellaneous - Jorge Han L.P.N. - 11/25/2013 8:18 AM CST Adult Polisher Implant Intake/History Adult Polisher Implant Intake/History Entered On: 11/25/2013 8:19 SERVICE STATION EQUIPMENT MECHANIC Performed On: 11/25/2013 8:18 SERVICE STATION EQUIPMENT MECHANIC by JORGE HAN Intake Chief Complaint : diabetes recheck LMP Date : Hysterectomy Peripheral Pulse Rate : 72 /min Systolic Blood Pressure : 110 mmHg Diastolic Blood Pressure : 58 mmHg NIBP Mean : 75 mmHg Actual Weight : 94.0 kg(Converted to: 207 lb 4 oz) Dosing Weight Clinic : 94 kg JORGE HAN - 11/25/2013 8:18 SERVICE STATION EQUIPMENT MECHANIC General Info Information Given By : Patient Preferred Communication Mode : Verbal Languages : Nicaraguan JORGE HAN - 11/25/2013 8:18 SERVICE STATION EQUIPMENT MECHANIC Subjective Pain Symptoms : No JORGE HAN - 11/25/2013 8:18 SERVICE STATION EQUIPMENT MECHANIC Dependent Habits Tobacco Use/Currently Using : No Exposure to Tobacco Smoke : Other: former smoker Smoking Status : Former smoker JORGE HAN - 11/25/2013 8:18 SERVICE STATION EQUIPMENT MECHANIC Caffeine Use Grid Caffeine Use : Current Type : Coffee JORGE HAN - 11/25/2013 8:18 SERVICE STATION EQUIPMENT MECHANIC Recreational Drug Use Grid Drug Use : None JORGE HAN - 11/25/2013 8:18 SERVICE STATION EQUIPMENT MECHANIC [facility] Document Id: [id number] SERVICE STATION EQUIPMENT MECHANIC!27 ICE STATION EQUIPMENT MECHANIC documented in this encounter Plan of Treatment Upcoming Encounters Date Type Specialty Care Team Description 09/27/2022 Office Visit Dermatology Marianela Braden M.D. [address] [place] [phone] (Wo rk) documented as of this encounter Visit Diagnoses Not on filedocumented in this encounter
[2022-08-15 01:00] VITALS: BP 131/73; PULSE 76; RESP 16; O2SAT 93
[2022-08-15 01:08] LABS: SARS PCR* Negative SARS-CoV-2 (Negative)
--- NOTE | 2022-08-15 02:01 | ED.NURSE ---
pt IV infiltrated during NS infusion, education on IV infiltration provided, pt verbalizes understsanding.
[2022-08-15 02:32] LABS: Troponin I* 0.03 ng/mL (0.01-0.04)
== END 2022-08-15 02:01 | disposition home or self-care (01) ==
PROVIDERS: Emergency Provider Family Medicine; PCP Family Medicine
DX: S02.2XXA Fracture of nasal bones, initial encounter for closed fracture (principal); F10.129 Alcohol abuse with intoxication, unspecified; W19.XXXA Unspecified fall, initial encounter
CPT/HCPCS: 36415; 70450; 70486; 72125; 72170; 80048; 80076; 80143; 80179; 80306; 82077; 82150; 83605; 83880; 84484; 85025; 85610; 86140; 87635; 93005; 94761; 99285; 99291; G0390; J7120

== ENCOUNTER 2023-08-02 11:37 | Day surgery (SDC) | payer MEDICARE, BC, SELFPAY ==
[2023-08-02] MEDS: TETRACAINE 0.5% OPHTH 1 DROP EYE-RIGHT (12:00)
[2023-08-02] MEDS: KETOROLAC OPHTH 0.5% 1 DROP EYE-RIGHT ×3 (12:10→12:21)
[2023-08-02 12:47] VITALS: BP 155/76; PULSE 80; RESP 16; TEMP 36.1; O2SAT 96
[2023-08-02 12:48] VITALS: BMI 36.4
--- NOTE | 2023-08-02 12:51 | SUR.PREOP ---
The eye drops brought by the patient (Ketorolac and Prednisolone) are examined and I have determined they are labeled by the patient's pharmacy for this patient as prescribed by the surgeon. The bottles are intact, recently obtained and appear to be correct.
[2023-08-02] MEDS: SODIUM CHLORIDE 0.9 % (FLUSH) 10 ML SYRINGE IVF (12:52)
--- NOTE | 2023-08-02 12:59 | W.ANESCHARGE ---
Anesthesia Charges Start Date/Time Anesthesia Start Date: 08/02/23 Anesthesia Start Time: 13:23 Stop Date/Time Anesthesia Stop Date: 08/02/23 Anesthesia Stop Time: 13:55 Summary Extremes of Age - Over 70 or under 1: MDA
[2023-08-02] MEDS: HYALURONIDASE,OVINE 200 UNIT/ML VIAL 120 UNIT INJECTION (13:28)
[2023-08-02] MEDS: lidocaine HCL 2 % MULTIDOSE 20 ML VIAL 5 ML INJECTION (13:29)
[2023-08-02] MEDS: TETRACAINE 0.5% OPHTH 2 DROP EYE-RIGHT (13:33)
[2023-08-02] MEDS: TRYPAN BLUE 0.5 ML SYRINGE EYE-RIGHT (13:35)
[2023-08-02] MEDS: BALANCED SALT IRRIG SOLN 15 ML EYE-RIGHT (13:36)
--- NOTE | 2023-08-02 13:37 | W.ANESCHARGE ---
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
[2023-08-02] MEDS: BRIMONIDINE TARTRATE 0.2% OPHTH 1 DROP EYE-RIGHT (13:47)
--- NOTE | 2023-08-02 13:52 | P.PCN_ITS ---
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 PREOPERATIVE DIAGNOSIS Nuclear sclerotic cortical combined cataract, right eye. POSTOPERATIVE DIAGNOSIS Nuclear sclerotic cortical combined cataract, right eye. INDICATIONS FOR PROCEDURE The patient has noted that his vision in the right eye is failing. Severity 06/15. Unable to correct with glasses/contact lenses; has disabling night glare when driving, difficulty reading. Because of this, the patient elected to proceed with surgical repair. I have explained the risks, benefits, alternative treatments to the patient including possible loss of the eye under correction, over correction, need for more surgery. The patient understands, accepts, and elects to proceed with surgical repair. PROCEDURE The right eye was dilated with a combination 1% Mydriacyl, 2.5% phenylephrine with topical Ocufen and Vigamox applied to the corneal surface. The patient was brought to the main operating room where under IV sedation, after pausing to identify the correct patient, correct intraoperative lens, power 19.5 diopters, a retrobulbar block was performed after which the right eye was prepped and draped in usual sterile fashion for intraocular surgery. A lid speculum was placed and a paracentesis created at 12 o'clock. The chamber was filled with OVD air and trypan and entered temporally with a keratome. a malyugan ring was inserted due to a miotic 3 mm pupil. A continuous tear capsulotomy was performed. The nucleus was hydrodissected and emulsified with local anesthetic and emulsified in a chop technique in the capsular bag. Residual cortex was cleaned. The capsule was clear. At this point, ZCBOO 19.5 diopter posterior chamber lens implant was injected into the capsular bag and was well centered. Residual OVD was cleaned from behind the implant from the capsular bag. The incision hydrated and noted to be leak free. Topical Alphagan, pilocarpine, and a collagen shield rehydrated in Vigamox were applied to the corneal surface and the patient returned to recovery in good condition having tolerated the procedure well. CONDITION ON DISCHARGE Satisfactory.
[2023-08-02 14:02] VITALS: BP 154/75; PULSE 75; RESP 16; TEMP 36.6; O2SAT 93
== END 2023-08-02 14:44 | disposition home or self-care (01) ==
PROVIDERS: PCP Family Medicine; Visit Provider Ophthalmology
PROC: (CPT 66984; principal; 2023-08-02 13:00)
DX: H25.11 Age-related nuclear cataract, right eye (principal); E11.9 Type 2 diabetes mellitus without complications
CPT/HCPCS: 66984; 00142; 82962; 99100; A9270; J2250; J2704; J3010; J3471; S0020; V2632

== ENCOUNTER 2023-08-30 10:38 | Day surgery (SDC) | payer MEDICARE, BC, SELFPAY ==
[2023-08-30] MEDS: TETRACAINE 0.5% OPHTH 1 DROP EYE-LEFT (10:57)
[2023-08-30] MEDS: KETOROLAC OPHTH 0.5% 1 DROP EYE-LEFT ×3 (11:01→11:11)
[2023-08-30] MEDS: SODIUM CHLORIDE 0.9 % (FLUSH) 10 ML SYRINGE IVF (11:06)
[2023-08-30 11:13] VITALS: BP 147/72; PULSE 85; RESP 16; TEMP 36.6; O2SAT 94; BMI 35.9
[2023-08-30] MEDS: TETRACAINE 0.5% OPHTH 2 DROP EYE-LEFT (12:41)
[2023-08-30] MEDS: lidocaine HCL 2 % MULTIDOSE 20 ML VIAL 5 ML INJECTION (12:43)
[2023-08-30] MEDS: HYALURONIDASE,OVINE 200 UNIT/ML VIAL 60 UNIT INJECTION (12:44)
[2023-08-30] MEDS: BALANCED SALT IRRIG SOLN 15 ML EYE-LEFT (12:47)
[2023-08-30] MEDS: TRYPAN BLUE 0.5 ML SYRINGE EYE-LEFT (12:47)
[2023-08-30] MEDS: LACTATED RINGERS 1000 ML IV (12:50)
--- NOTE | 2023-08-30 12:51 | P.ANES_ITS ---
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
--- NOTE | 2023-08-30 12:57 | W.ANESCHARGE ---
Anesthesia Charges Start Date/Time Anesthesia Start Date: 08/30/23 Anesthesia Start Time: 12:38 Stop Date/Time Anesthesia Stop Date: 08/30/23 Anesthesia Stop Time: 13:09 Summary Extremes of Age - Over 70 or under 1: MDA
[2023-08-30] MEDS: BRIMONIDINE TARTRATE 0.2% OPHTH 1 DROP EYE-LEFT (13:02)
[2023-08-30 13:05] VITALS: BP 147/72; PULSE 84; RESP 16; TEMP 36.9; O2SAT 93
--- NOTE | 2023-08-30 13:07 | P.PCN_ITS ---
Procedure Note Date Seen: 08/30/23 Will [facility] bill your pro fee for this procedure?: No Pre-op diagnosis: combined form of catract left eye Procedure: NAME OF PROCEDURE Kelman phacoemulsification, left eye, with posterior chamber lens implant. PREOPERATIVE DIAGNOSIS Nuclear sclerotic cortical combined cataract, left eye. POSTOPERATIVE DIAGNOSIS Nuclear sclerotic cortical combined cataract, left eye. INDICATIONS FOR PROCEDURE The patient has noted that his vision in the left eye is failing. Severity 7/10. Unable to correct with glasses/contact lenses; has disabling night glare when driving, difficulty reading. Because of this, the patient elected to p roceed with surgical repair. I have explained the risks, benefits, alternative treatments to the patient including possible loss of the eye under correction, over correction, need for more surgery. The patient understands, accepts, and elects to proceed with surgical repair. PROCEDURE The left eye was dilated with a combination 1% Mydriacyl, 2.5% phenylephrine with topical Ocufen and Vigamox applied to the corneal surface. The patient was brought to the main operating room where under IV sedation, after pausing to identify the correct patient, correct intraoperative lens, power 18.0 diopters, a retrobulbar block was performed after which the left eye was prepped and draped in usual sterile fashion for intraocular surgery. A lid speculum was placed and a paracentesis created at 6 o'clock. The chamber was filled with OVD and entered temporally with a keratome. A continuous tear capsulotomy was performed. The nucleus was hydrodissected and emulsified with local anesthetic and emulsified in a chop technique in the capsular bag. Residual cortex was cleaned. The capsule was clear. At this point, ZCBOO 18.0 diopter posterior chamber lens implant was injected into the capsular bag and was well centered. Residual OVD was cleaned from behind the implant from the capsular bag. The incision hydrated and noted to be leak free. Topical Alphagan, pilocarpine, maxitrol ointment and Vigamox were applied to the corneal surface the eye was patched and shielded and the patient returned to recovery in good condition having tolerated the procedure well. CONDITION ON DISCHARGE Satisfactory.
[2023-08-30 13:27] VITALS: BP 147/74; PULSE 82; RESP 16; O2SAT 94
--- NOTE | 2023-08-30 13:58 | SUR.PREOP ---
500cc LR administered in OR.
== END 2023-08-30 13:48 | disposition home or self-care (01) ==
PROVIDERS: PCP Family Medicine; Visit Provider Ophthalmology
PROC: (CPT 66982; principal; 2023-08-30 12:15)
DX: H25.012 Cortical age-related cataract, left eye (principal)
CPT/HCPCS: 66982; 00142; 82962; 99100; A9270; J2250; J2704; J3010; J3471; J7120; S0020; V2632

== ENCOUNTER 2023-09-18 10:36 | Outpatient (CLI) | payer MEDICARE, BC, SELFPAY ==
--- NOTE | 2023-09-18 13:09 | W.ANESCHARGE ---
Anesthesia Charges Start Date/Time Anesthesia Start Date: 09/18/23 Anesthesia Start Time: 12:22 Stop Date/Time Anesthesia Stop Date: 09/18/23 Anesthesia Stop Time: 13:08
--- NOTE | 2023-09-18 13:41 | W.ANESCHARGE ---
Anesthesia Charges Start Date/Time Anesthesia Start Date: 09/18/23 Anesthesia Start Time: 12:22 Stop Date/Time Anesthesia Stop Date: 09/18/23 Anesthesia Stop Time: 13:08 Summary Extremes of Age - Over 70 or under 1: MDA
== END 2023-09-18 10:37 | disposition home or self-care (01) ==
PROVIDERS: PCP Family Medicine; Visit Provider Internal Medicine Gastroenterology
DX: Z12.11 Encounter for screening for malignant neoplasm of colon (principal); K63.5 Polyp of colon; K57.30 Diverticulosis of large intestine without perforation or abscess without bleeding; Z86.010 Personal history of colon polyps
CPT/HCPCS: 00811; 45385; 88305; 99100; J2704

== ENCOUNTER 2024-08-06 07:52 | Outpatient (CLI) | payer MEDICARE, BC, SELFPAY ==
--- OUTSIDE RECORDS SUMMARY | 2024-08-06 07:56 | XMS_ITS | Clinical Summary ---
Author Organization [employer] [facility] Address [place], [place] [address] Care Team Providers Care Gripper Installer Name Role Phone Ashutosh Gonzales MD Primary Care Provider Qiana Huntley RN Unavailable [phone] Unavailable Allergies Active Allergy Reactions Criticality Noted Date Comments Cat Dander Other - Describe In Comment Field 02/05/2018 Losartan Other - Describe In Comment Field 07/28/2022 Increased Creatinine and potassium Medications Medication Sig Dispensed Refills Start Date End Date Status Vit A,C,R-Xbvr-Hiamea (PRESERVISION AREDS) [id number] ptrp-ht-tiwo cap Take 1 tablet twice daily 90 Cap 3 07/07/2017 Active medication order composer Calcium 0 12/04/2019 Active magnesium oxide,aspartate,citr 400 mg magnesium cap Take 400 mg by mouth once daily. 0 03/08/2021 Active CPAPIndications:Obst ructive sleep apnea CPAP machine for home use at pressure 14 cmw, full face mask x1/3month with a full face cushion x1/mo 1 Each 11 11/10/2021 Active empagliflozin (JARDIANCE) 10 mg tabletIndications:Di abetes mellitus without complication (HC) Take 1 Tablet (10 mg) by mouth once daily. 90 Tablet 3 01/17/2024 Active fluvoxaMINE (LUVOX) 100 mg tabletIndications:Co mpulsive behaviors,Obsessive- compulsive disorder, unspecified type TAKE ONE AND ONE-HALF TABLETS BY MOUTH TWICE DAILY 270 Tablet 1 03/20/2024 Active blood sugar diagnostic (Lightspeed Audio LabsTouch Verio test strips) stripIndications:Ibis betes mellitus without complication (HC) USE TO TEST BLOOD SUGARS TWICE DAILY 200 Each 3 04/11/2024 Active dulaglutide (TRULICITY) 1.5 mg/0.5 mL subcutaneous penIndications:Diabe poly mellitus without complication (HC) Inject 1.5 mg subcutaneous once weekly. 6 mL 1 04/29/2024 Active amLODIPine (NORVASC) 5 mg tabletIndications:HT N (hypertension) Take 1 Tablet (5 mg) by mouth once daily. 90 Tablet 3 05/14/2024 Active atorvastatin (LIPITOR) 40 mg tabletIndications:Mi xed hyperlipidemia Take 1 Tablet (40 mg) by mouth at bedtime. 90 Tablet 3 05/14/2024 Active esomeprazole (NexIUM) 20 mg capsuleIndications:C hronic GERD Take 1 Capsule (20 mg) by mouth once daily before a meal. 90 Capsule 05/14/2024 Active metFORMIN (GLUCOPHAGE XR) 500 mg Extended-Release tabletIndications:Di abetes mellitus without complication (HC) Take 4 Tablets (2,000 mg) by mouth once daily with evening meal. 360 Tablet 05/14/2024 Active metoprolol succinate (TOPROL XL) 50 mg sustained-release tabletIndications:Ch ronic heart failure with preserved ejection fraction (HC) Take 1 Tablet (50 mg) by mouth once daily. 90 Tablet 3 05/14/2024 Active torsemide (DEMADEX) 20 mg tabletIndications:Ch ronic heart failure with preserved ejection fraction (HC) Take 2 Tablets (40 mg) by mouth once daily. 180 Tablet 3 05/14/2024 Active honey 100 % psteIndications:Skin ulcer due to varicose veins (HC) Apply topically to affected area(s). 103 mL 06/27/2024 Active Hospital, Clinic, or Other Facility Administered Medication Ordered Dose Route Frequency Start Date End Date Status cyanocobalamin (VITAMIN B12) 1,000 mcg/mL injection 1,000 mcgIndications:Vitam in B 12 deficiency 1000 mcg IM Q 4 WEEKS (28 days) 09/26/2023 08/26/2024 Active Active Problems Problem Noted Date Diagnosed Date Stage 3a chronic kidney disease 07/20/2023 Lipodermatosclerosis of both lower extremities 0 11/26/2020 Sensorineural hearing loss, bilateral 03/17/2020 Overview (02/04/2022): Hearing aides Heart failure with preserved ejection fraction 0 12/27/2019 Iron deficiency anemia 12/13/2019 Positive for macroalbuminuria 12/13/2019 RESHMA AHI- 52 FFM heated hose 09/17/20 19 Hoarding disorder 08/16/2018 Adenomatous colon polyp 06/15/2018 Overview (09/20/2023): Colonoscopy 06/2018 polyp, repeat in 5 years Colonoscopy 09/2023 multiple large polyps, repeat in 3 years Obsessive-compulsive disorder 09/19/2017 Gait instability 08/18/2017 Vertigo 08/18/2017 Anxiety 03/06/2014 Overview (03/06/2014): Started on paxil 02/2014 Vitamin B12 deficiency 06/04/2012 Type II or unspecified type diabetes mellitus without mention of complication, not stated as uncontrolled 03/07/2008 Unspecified essential hypertension 04/13/2007 Mixed hyperlipidemia 04/13/2007 Resolved Problems Problem Noted Date Diagnosed Date Resolved Date Depression, recurrent 09/08/20232023 Mood disorder 03/08/2021 07/20/2023 Type 2 diabetes mellitus, wi thout long-term current use of insulin 11/26/2020 09/07/2023 Compulsive behaviors 08/16/2018 020 Compulsive behaviors 05/15/2018 018 Lumbar radiculopathy, left 12/15/2017 0 05/23/2018 Syncope and collapse 03/06/2014 023 Hyponatremia 03/06/2014 09/07/2023 Shingles 12/22/2009 05/04/2011 Encounters Date Type Department Care Team Description 07/30/2024 3:20 PM CDT Office Visit [facility] [address] [place] [address] Ashutosh Gonzales MD Follow Up (Wart on right foot, wound on left lower leg) 07/17/2024 Telephone [facility] [address] [facility] [place] [address] Ashutosh Gonzales MD schedule referral 07/15/2024 2:00 PM CDT Nurse/Clinic Staff Only [address] [place] [address] Immunization/Inject ion (B-12 inj) 07/15/2024 Travel 06/27/2024 1:40 PM CDT Office Visit [address] [place] [address] Ashutosh Gonazles MD Follow Up (Sore on lower left leg and toe on right foot) 06/27/2024 Travel 06/19/2024 3:45 PM CDT Office Visit [address] [place] [address] Ashutosh Gonzales MD Follow Up (Right foot second toe); Leg Pain/problem (Sore on left lower leg, noticed two weeks ago) 06/19/2024 Travel 06/13/2024 2:00 PM CDT Nurse/Clinic Staff Only [place] [address] [address] [facility] [place] [address] 06/13/2024 Travel 05/28/2024 2:05 PM CDT Office Visit [address] [place] [address] Ashutosh Gonzales MD Recheck (recheck toe/); Results (go over labs from 2 weeks ago) 05/28/2024 Travel 05/14/2024 2:55 PM CDT [address] [facility] [address] Ashutosh Gonzales MD Diabetes (Follow up); Medication Management (Discuss diabetic medications ) 05/14/2024 Orders Only [facility] [address] [facility] [place] [address] Ashutosh Gonzales MD <No scans attached> 05/13/2024 2:00 PM CDT Nurse/Clinic Staff Only [facility] [address] [facility] [address] Immunization/Inject ion (VITAMIN B-12 INJECTION ) 05/13/2024 Telephone [facility] [address] [place] [phone] Qiana Huntley RN Medication Management (Trulicity) 05/13/2024 Travel 05/12/2024 Refill [facility] [address] [facility] [address] Ashutosh Gonzales MD Refill Request (Torsemide) 05/07/2024 10:45 AM CDT Orders Only [facility] [address] [facility] [address] [place], [place] [facility] 05/07/2024 Travel from Last 3 Months Immunizations Name Administration Dates Next Due AMB Influenza, IIV3 (Age >=3 years)(Flu Clinic Only) 08/25/2010 COVID-19 vaccine ([facility] [employer] NTech 30mcg/0.3mL) 12YO+ RONNY-SUCROSE PF, MDV 02/18/2022 COVID-19 vaccine ([employer] [employer] 30mcg/0.3mL) PF, MDV 08/05/2021,01/16/2021,12/26/2020 Influenza A (H1N1), Inactiva justin (Age >=3 Years) 10/28/2009 Influenza Virus, Unspecified 07/21/2016 Influenza, High-dose Quadriv alent Inactivated 07/21/2023,08/03/2022,07/24/2021 Influenza, IIV3 (Age >=3 years) 08/05/2009,08/11,09/19/2007 Influenza, Inactivated AIIV4 (Age 65+ Years) Preserv Free 07/10/2020 Influenza, Inactivated IIV3 (Age 65+ Years) Preserv Free 07/21/2017 Pneumococcal Conj 20-valent (Prevnar 20) 023 Pneumococcal Poly,23-Valent (Pneumovax) 02/13/20 14,05/04/2011,08/29/1998 Pneumococcal conj 13-Valent (Prevnar 13) 014 RSV, Recombinant ADJ Reconst ituted (Arexvy 120MCG/0.5mL) 07/21/2023 Td (Age >=7 Years) 04/12/2004 Tdap 08/07/2020,09/07/2010 Zoster (Shingrix-RZV, recombinant) 03/30/2018, Zoster (Zostavax-ZVL, live) 01/23/2014, 4 Family History Medical History Relation Name Comments Hyperlipidemia Brother Heart Disease Father Other Mother alzheimers Anesthesia Problem No Family History Cancer No Family History Cancer-breast No Family History Cancer-colon No Family History Cancer-ovarian No Family History Cancer-prostate No Family History Relation Name Status Comments Brother Alive Father (Age 50) [place] Mother Alive Social History Tobacco Use Types Packs/Day Years Used Date Smoking Tobacco: Former Cigarettes 0.3 5 0 11/06/1996 - 11/06/2001 Smokeless Tobacco: Never Tobacco Cessation:Counseling Given: No Alcohol Use Standard Drinks/Week Comments Yes 8.3 (1 standard drin k = 0.6 oz pure alcohol) one to two glasses of wine per day. PHQ-2 Answer Date Recorded PHQ-2 TOTAL SCORE 2 09/07/2023 Social Connections Answer Date Recorded Frequency of Communication with Friends and Fami ly 0 07/30/2024 Financial Resource Strain Answer Date R ecorded Difficulty of Paying Living Expenses 3 07/30/2024 Difficulty of Paying Living Expenses Not on file 07/30/2024 Food Insecurity Answer Date Recorded Worried About Running Out of Food in the Last Ye ar 1 07/30/2024 Transportation Needs Answer Date Record ed Lack of Transportation (Medical) 1 07/30/2024 Housing Stability Answer Date Recorded Unable to Pay for Housing in the Last Year 1 07/30/2024 Sex and Gender Information Value Date Recorded Sex Assigned at Not on file Gender Identity Not on file Sexual Orientation Not on file Obstetrics History Para Term AB IAB SAB Ectopic Multiple Livin g Live Births 2 2 2 Date Outcome GA Total Labor Labor/2nd/3rd Weight Sex Type Anes PTL Michelle A1 A5 Name Clin Para Para Last Filed Vital Signs Vital Sign Reading Time Taken Comments Blood Pressure 152/76 07/30/2024 3:53 PM CDT Pulse 95 07/30/2024 3:53 PM CDT Temperature 36.8 ??C (98.2 ??F) 02/04/2022 2:59 PM CD T Respiratory Rate 16 02/04/2022 2:59 PM CDT Oxygen Saturation 96% 07/30/2024 3:53 PM CDT Inhaled Oxygen Concentration - - Weight 89.3 kg (196 lb 12.8 oz) 07/30/2024 3:53 PM CDT Height 159.6 cm (5' 2.84) 09/07/2023 2:04 PM CD T Body Mass Index 35.04 09/07/2023 2:04 PM CDT Plan of Treatment Upcoming Encounters Date Type Department Care Team (Late st Contact Info) Description 08/07/2024 8:30 AM CDT Office Visit [facility] [address] [place] [address] Sandro Smyth AuD [address] [place] [phone] 08/15/2024 2:00 PM CDT Nurse/Clinic Staff Only [facility] [address] [place] [address] 08/22/2024 1:00 PM CDT Office Visit [facility] [address] [place] [address] Sabino Conway MD [address] [place] [address] 09/12/2024 1:00 PM NUCLEAR FUELS RESEARCH ENGINEER Orders Only [facility] [address] [place] [address] [place] [place] 09/12/2024 1:15 PM NUCLEAR FUELS RESEARCH ENGINEER Office Visit [facility] [address] [place] [address] Ashutosh Gonzales MD [address] [place] [address] Health Maintenance Due Date Last Done Comments COVID-19 vaccine series ( season) 2024 10/06/2023, 03/06/2023, 07/16/2022, Additional history exists Influenza for age 65+ 07/07/2024 07/21/2023 , 08/03/2022, 07/24/2021, Additional history exists BMI (ht and wt on same day) for age 18+ 09/07/2024 09/07/2023, 09/07/2023, 08/14/2023, Additional history exists Medicare Wellness for age 65+ 09/07/2024, 07/28/2022, 03/07/2022, Additional history exists Depression screening for age 12+ 05/28/2025 05/28/2024, 09/08/2023, 09/07/2023, Additional history exists Tetanus booster 08/07/2030 08/07/2020, 12/2009, 04/12/2004 Zoster (shingles) series for age 50+ Completed 03/30/2018, 01/04/2018, 01/23/2014, Additional history exists DEXA/DXA scan for age 65+ Completed 06/20/2019, 10/2011 Fecal testing non-DNA (FIT,FOBT,iFOBT) for age 45-75 Discontinued 12/06/2019, 06/16/2011, 07/13/2010, Additional history exists Hepatitis C screening for ag e 18-79 Completed 07/10/2020 Tdap Completed 08/07/2020, 09/07/2010 Pneumococcal series for age 65+ Completed 03/07/2023, 10/08/2014, 02/12/2014, Additional history exists RSV vaccine for adults or Completed 07/21/2023 Procedures Procedure Name Priority Date/Time Associated Diagnosis Comments BASIC METABOLIC PANEL Routine 05/14/2024 3:53 PM CDT Stage 3a chronic kidney disease (HC) URINE ALBUMIN TO CREATININE RATIO, RANDOM Routine 05/07/2024 10:43 AM CDT Diabetes mellitus without complication (HC) BASIC METABOLIC PANEL Routine 05/07/2024 10:40 AM CDT Diabetes mellitus without complication (HC) VITAMIN B12 Routine 05/07/2024 10:40 AM CDT Vitamin B12 deficiency HEMOGLOBIN A1C MONITORING (POCT) Routine 05/07/2024 10:40 AM CDT Type II or unspecified type diabetes mellitus without mention of complication, not stated as uncontrolled ANTI HCV Routine 07/10/2020 4:22 PM CDT Need for hepatitis C screening test OCCULT BLOOD IFOBT STOOL Routine 12/06/2019 4:00 PM NUCLEAR FUELS RESEARCH ENGINEER Screening for colon cancer XR DXA BONE DENSITY 2 SITES AXIAL Routine 06/20/2019 1:42 PM CDT Osteoporosis, unspecified osteoporosis type, unspecified pathological fracture presence from Last 3 Months or Most Recently Relevant to Health Maintenance Results * (ABNORMAL) BASIC METABOLIC PANEL (05/14/2024 3:53 PM CDT) Only the most recent of2 resultswithin the time period is included. SODIUM 138 136 - 145 mmol/L 05/15/2024 12:09 AM CDT [facility] POTASSIUM 5.3(H) 3.5 - 5.1 mmol/L 05/15/2024 12:09 AM CDT [facility] CHLORIDE 99 98 - 107 mmol/L 05/15/2024 12:09 AM CDT [facility] CO2,TOTAL 26 22 - 29 mmol/L 05/15/2024 12:09 AM CDT [facility] ANION GAP 13 5 - 18 05/15/2024 12:09 AM CDT [facility] GLUCOSE 88 70 - 99 mg/dL 05/15/2024 12:09 AM CDT [facility] CALCIUM 9.4 8.8 - 10.2 mg/dL 05/15/2024 12:09 AM CDT [facility] BUN 28(H) 8 - 23 mg/dL 05/15/2024 12:09 AM CDT [facility] CREATININE 1.37(H) 0.50 - 0.90 mg/dL 05/15/2024 12:09 AM CDT [facility] BUN/CREAT RATIO 20 10 - 20 12:09 AM CDT [facility] eGFR 40(L) >90 mL/min/1.7 3m2 05/15/2024 12:09 AM CDT [facility] Comment:As of 2022, eG FR is calculated by the CKD-EPI creatinine equation without race adjustment. ??eGFR can be influenced by muscle mass, exercise, and diet. ??The reported eGFR is an estimation only and is only applicable if the renal function is stable. Blood BLOOD SPECIMEN / Unknown Venipuncture / Unknown 05/14/2024 3:53 PM CDT 05/14/2024 3:55 PM CDT Ashutosh Gonzales MD CHEMISTRY [facility] [address] [place] [address], * (ABNORMAL) URINE ALBUMIN TO CREATININE RATIO, RANDOM (05/07/2024 10:43 AM CDT) ALB RAND URINE 469.0 mg/L 05/07/2024 10:21 PM CDT [facility] CREATININE,URIN E 1.06 g/L 05/07/2024 10:21 PM CDT [facility] ALBUMIN TO CREATININE RATIO,RAND UR 442.5(H) <30.0 mg/g creat 05/07/2024 10:21 PM CDT [facility] Urine URINE SPECIMEN / Unknown Non-Blood / Unknown 05/07/2024 10:43 AM CDT 05/07/2024 10:43 AM CDT Narrative [facility] - 05/07/2024 10:21 PM CDT If Albumin to Creatinine Ratio is elevated, consider the following: ? Elevations seen with incipient nephropathy associated ?? with diabetes mellitus or hypertension. Stress, exercise,hematuria, ?? and urinary tract infection may also produce elevated results. If clinically indicated, confirm with ?24 Hour Albumin to Creatinine Ratio. ?? Ashutosh Gonzales MD URINE Performing Organization Address City/[facility]/ZIP Co de Phone Number [facility] [address] [place] [address], [place] * HEMOGLOBIN A1C MONITORING (POCT) (05/07/2024 10:40 AM CDT) [facility] HEMOGLOBIN A1C MONITORING (POCT) 6.2 <=6.4 % 05/07/2024 10:53 AM CDT [facility] Blood BLOOD SPECIMEN / Unknown Venipuncture / Unknown 05/07/2024 10:40 AM CDT 05/07/2024 10:43 AM CDT Narrative [facility] - 05/07/2024 10:53 AM CDT ? (<=6.9%) ? Indicates good control ? (7.0% to 7.9%) ? Indicates fair control ? (>=8.0%) ? Indicates poor control ?? NOTE: ??These thresholds are guidelines and ?individual targets may vary. Falsely low levels may be seen with: Recent Transfusion, Recent Significant Blood Loss, Hemolytic Diseases, or Falsely elevated levels may be seen with: Untreated Anemias, Splenectomy ? Ashutosh Gonzales MD CHEMISTRY Performing Organization Address City/[facility]/ZIP Co de Phone Number [facility] [address] [place] [address], [place] [phone] * VITAMIN B12 (05/07/2024 10:40 AM CDT) [facility] VITAMIN B12 607 232 - 1,245 pg/mL 05/07/2024 7:01 PM CDT [facility] Blood BLOOD SPECIMEN / Unknown Venipuncture / Unknown 05/07/2024 10:40 AM CDT 05/07/2024 10:43 AM CDT Narrative [facility] - 05/07/2024 7:01 PM CDT Biotin supplements may cause clinically significant interference for this test assay. ??If interference is suspected, it is strongly recommended that biotin is discontinued for at least one week prior to retesting. Ashutosh Gonzales MD CHEMISTRY Performing Organization Address City/[facility]/ZIP Co de Phone Number [facility] [address] [place] [address], * ANTI HCV (07/10/2020 4:22 PM CDT) Pathologist [facility] HEPATITIS C ANTIBODY Non-React manny Non-React manny 07/10/2020 9:24 PM CDT [facility] Comment:Antibodies to HCV no t detected; does not exclude the possibility of exposure to HCV. Blood BLOOD SPECIMEN / Unknown Venipuncture / Unknown 07/10/2020 4:22 PM CDT 07/10/2020 4:24 PM CDT Ashutosh Gonzales MD SEND OUTS Performing Organization Address [facility]/ZIP Co de Phone Number [facility] [address] [place] [address], * OCCULT BLOOD IFOBT STOOL (12/06/2019 4:00 PM NUCLEAR FUELS RESEARCH ENGINEER) STOOL BLOOD ,IFOBT Negative Negative 12/07/2019 10:31 AM NUCLEAR FUELS RESEARCH ENGINEER [facility] Stool STOOL SPECIMEN / Unknown Non-Blood / Unknown 12/06/2019 4:00 PM NUCLEAR FUELS RESEARCH ENGINEER 12/07/2019 10:23 AM NUCLEAR FUELS RESEARCH ENGINEER Ashutosh Gonzales MD LABORATORY Performing Organization Address City/[facility]/ZIP Co de Phone Number [facility] [address] [place] [address], * (ABNORMAL) XR DXA BONE DENSITY 2 SITES AXIAL (06/20/2019 1:42 PM CDT) Anatomical Region Laterality Modality Spine, HIPS, HIPL, HIPR Other Narrative 06/21/2019 12:50 PM CDT Please see scanned document for results of this study. Ashutosh Gonzales MD DEXA from Last 3 Months or Most Recently Relevant to Health Maintenance Advance Directives Documents on File Type Date Recorded Patient Fire Sprinkler Service Technician Expl anation Healthcare Directive 05/02/2013 12:00 AM A DVANCE DIRECTIVE * Full Code (Latest Code Status on File) Date Activated Date Inactivated Comments 03/06/2014 7:28 PM 03/09/2014 5:42 PM Care Teams Gripper Installer Relationship Specialty Start Date End Date Ashutosh Gonzales MD [address] [place] [address] PCP - General Family Practice 07/21/17 Qiana Huntley, RN [address] [place] [address] Director Global Intelligence 12/31/[address] [place] [address] [place] [phone] Director Global Intelligence Manager Visual 12/31/20
--- OUTSIDE RECORDS SUMMARY | 2024-08-06 07:57 | XMS_ITS ---
Author Organization [facility] Address [address] [place] [address] Care Team Providers Care Curator [employer] Name Role Phone Unavailable Unavailable Unavailable Surgery Details Not on file Complications Check Surgery Details section. Procedure Estimated Blood Loss Check Surgery Details section. Procedure Findings Check Surgery Details section. Procedure Specimens Taken Check Surgery Details section.
--- OUTSIDE RECORDS SUMMARY | 2024-08-06 07:57 | XMS_ITS | Referral Summary ---
Author Organization [facility] Address [address] [place] [address] Care Team Providers Care Exit Booth Agent Name Role Phone Elsewhere, Pcp Primary Care Provider Unavailabl e Source Comments Patient records contain information from all sites at [facility]. For routine questions regarding patient records, call [phone] during business hours, M-F 8:00 AM - 5:00 PM Central Time. Record requests for emergency care only can be directed to [phone] at any time.[facility] Allergies Active Allergy Reactions Criticality Noted Date Comments Cat Dander Other (see comments) High 02/05/2018 Runny nose itchy eyes Losartan Other (see comments) 07/28/2022 Increased Creatinine and potassium Pollen Extracts Other (see comments) Low 07/31/2018 Runny nose, itchy eyes Medications Medication Sig Dispensed Refills Start Date End Date Status aspirin [address] tablet Take 1 tablet by mouth daily. 03/14/2014 Active atorvastatin (LIPITOR) 40 mg tablet Take 1 tablet by mouth at bedtime. 01/09/2017 Active cyanocobalamin (VITAMIN B12) 500 mcg tablet Take 1,000 mcg by mouth daily. 12/15/2017 Active eucalyptus-peppermin t oil nasal solution Administer 1 application into each nostril 2 (two) times a day. 01/23/2018 Active fluvoxaMINE (LUVOX) 100 mg tablet Take 250 mg by mouth at bedtime. 06/05/2018 Active losartan (COZAAR) 50 mg tablet Take 50 mg by mouth at bedtime. 05/29/2018 Active metFORMIN XR (GLUCOPHAGE-XR) 500 mg 24 hr tablet Take 2,000 mg by mouth every evening. 02/05/2018 Active vit C/E/Zn/coppr/lutein/ zeaxan (PRESERVISION AREDS-2 ORAL) Take 1 capsule by mouth 2 (two) times a day. 12/02/2015 Active omeprazole (PriLOSEC) 20 mg capsule Take 1 tablet by mouth daily. 08/09/2017 Active blood sugar diagnostic strips USE TO TEST BLOOD GLUCOSE LEVELS TWICE DAILY. 12/11/2018 Active montelukast (SINGULAIR) 10 mg tablet Take 10 mg by mouth. 02/05/2018 Acti ve naproxen sodium (ALEVE/ANAPROX) 220 mg tablet Take 1 tablet by mouth daily as needed 07/07/2017 Active glipiZIDE (GLUCOTROL XL) 5 mg 24 hr tablet Take 2.5 mg by mouth daily. before meal 1 06/16/2019 Active torsemide (DEMADEX) 20 mg tablet Take 40 mg by mouth daily. Active magnesium 200 mg tablet Take 200 mg by mouth every morning before breakfast. Active losartan (COZAAR) 100 mg tablet Take 100 mg by mouth daily. 01/23/2021 Active dulaglutide (Trulicity) 1.5 mg/0.5 mL pen injector injection Inject 1.5 mg under the skin once a week. 03/02/2021 Active magnesium oxide,aspartate,citr 400 mg magnesium capsule Take 400 mg by mouth. 03/08/2021 Active pyridoxine, vitamin B6, (B-6) 100 mg tablet Take 100 mg by mouth daily. Active metoprolol succinate (TOPROL-XL) 50 mg 24 hr tablet Take 50 mg by mouth daily. 05/23/2022 Active amLODIPine (NORVASC) 2.5 mg tablet Take 5 mg by mouth. 06/08/2022 Ac tive empagliflozin (Jardiance) 10 mg tablet Take 10 mg by mouth every morning before breakfast. Active Active Problems Problem Noted Date Diagnosed Date Hyperlipidemia Mixed 08/09/2017 Overview (09/09/2017): Hyperlipidemia Mixed Alcoholism Personal History 02/27/2014 Overview (03/28/2017): Alcoholism Pers Hx Diabetes Mellitus Type 2 11/25/2013 Overview (03/28/2017): DM II (or NOS), controlled Hypertension 04/11/2013 Overview (03/28/2017): HTN [Hypertension] Immunizations Name Administration Dates Next Due DTaP-IPV 09/07/2010 HZV (ZOSTAVAX) 01/23/2014 Influenza Split 08/16/2013 Influenza, Unspecified 07/21/2016,2014,07/09/2014,08/20/2013, 2 PCV13 10/08/2014 PPSV23 05/04/2011 Tdap 09/07/2010 Social History Tobacco Use Types Packs/Day Years Used Date Smoking Tobacco: Unknown Smokeless Tobacco: Never Tobacco Cessation:Counseling Given: Not Answered Nutrition Answer Date Recorded Nutrition: EVOO Fat Source Unknown 12/29 Nutrition: Servings of Fruits/Vegetables per Day Not on file 12/29/2020 Dental Answer Date Recorded Dental: Regular Dentist Unknown 12/29/19 21 Sex and Gender Information Value Date Recorded Sex Assigned at Not on file Gender Identity Female 05/06/2021 10:16 AM CDT Sexual Orientation Straight 05/06/2021 10 :16 AM CDT Last Filed Vital Signs Vital Sign Reading Time Taken Comments Blood Pressure 138/58 08/09/2017 3:40 PM CDT Pulse 80 08/09/2017 3:40 PM CDT Temperature - - Respiratory Rate 16 08/09/2017 3:40 PM CDT Oxygen Saturation - - Inhaled Oxygen Concentration - - Weight 99.5 kg (219 lb 4 oz) 08/09/2017 3:40 PM CDT Height 160.5 cm (5' 3.19) 08/09/2017 3:40 PM CD T Body Mass Index 38.61 08/09/2017 3:40 PM CDT Plan of Treatment Not on file Procedures Procedure Name Priority Date/Time Associated Diagnosis Comments HEMOGLOBIN A1C, B Routine 06/28/2017 11: 19 AM CDT BASIC METABOLIC PANEL, S/P Routine 06/28/2017 11:18 AM CDT BI BREAST SCREENING BILATERAL Routine 03/31/2017 9:13 AM CDT ALBUMIN, RANDOM, U Routine 01/19/2017 9: 56 AM CDT from Last 3 Months or Most Recently Relevant to Health Maintenance Results * BI Breast Screening Bilateral (03/31/2017 9:13 AM CDT) Anatomical Region Laterality Modality Breast Bilateral Mammography 03/31/2017 9:13 AM CDT Addenda Addendum by ProviderAmy M.D. on 03/31/2017 9:13 AM CDT RAD^^^OW MA Mammo Screening w ??CADD 03/31/2017 09:13:26 Narrative 03/31/2017 11:24 AM CDT Exam: ??MA Mammo Screening w/ CADD Indication: ??screening Comparison: ??Mammograms dating back to 2010. Impression: ?? Heterogeneously dense glandular tissue is identified bilaterally, limiting the sensitivity of mammography. Numerous scattered benign-appearing calcifications. Nothing specific for malignancy. This examination is reviewed with the aid of computer aided detection. Recommendations: I recommend a follow-up mammogram in 1 year, self breast exams at least once per month and a clinical breast exam at least once per year. Of note, benign findings should not deter biopsy in the setting of a palpable abnormality. The false negative rate of mammography is approximately 10%. Code: 2 - Benign. Procedure Note Vijay Patel M.D. / ProviderAmy M.D. - 04/27/2017 Exam: MA Mammo Screening w/ CADD Indication: screening Comparison: Mammograms dating back to 2010. Impression: Heterogeneously dense glandular tissue is identified bilaterally, limiting the sensitivity of mammography. Numerous scattered benign-appearing calcifications. Nothing specific for malignancy. This examination is reviewed with the aid of computer aided detection. Recommendations: I recommend a follow-up mammogram in 1 year, self breast exams at least once per month and a clinical breast exam at least once per year. Of note, benign findings should not deter biopsy in the setting of a palpable abnormality. The false negative rate of mammography is approximately 10%. Code: 2 - Benign. Emelia Chavez(R), RCristina(R)(M) IMG BI PROCEDURES * (ABNORMAL) Microalbumin, Random, Urine (01/19/2017 9:56 AM CDT) Creatinine, Random, U 297(H) 29 - 226 MGDL POWERCHART HXU Albumin % 170.9 MGL POWERCHART Albumin/Creatin ine Ratio 58(H) 0 - 25 MGG POWERCHART Urine 01/19/2017 9:56 AM CDT Naren Kruger M.D. LAB URINE ORDERABL ES POWERCHART from Last 3 Months or Most Recently Relevant to Health Maintenance Care Teams Exit Booth Agent Relationship Specialty Start Date End Date Elsewhere, Pcp PCP - General Family Medicine 01/30/19
--- OUTSIDE RECORDS SUMMARY | 2024-08-06 07:57 | XMS_ITS | Clinical Summary ---
Author Organization [facility] Address [address] [place] [address] Care Team Providers Care Radarman Name Role Phone Elsewhere, Pcp Primary Care Provider Unavailabl e Source Comments Patient records contain information from all sites at [facility]. For routine questions regarding patient records, call [phone] during business hours, M-F 8:00 AM - 5:00 PM Central Time. Record requests for emergency care only can be directed to [phone] at any time.[facility] Allergies Active Allergy Reactions Criticality Noted Date [...] 2 PCV13 10/08/2014 PPSV23 05/04/2011 Tdap 09/07/2010 Family [...] 08/09/2017 3:40 PM CDT Plan of Treatment Health Maintenance Due Date Last Done Comments Hepatitis C Screening 1945 Office Visit for Blood Press ure Check / Re-check 1945 Hepatitis B Vaccines (1 of 3 - Risk 3-dose series) 2005 Dilated Eye Exam 07/09/2016 07/09/2015 Diabetes Education 04/25/2018 04/25/2017, 12/23/2014 Diabetic Office Visit with F oot Exam 04/25/2018 04/25/2017, 12/23/2014 Urine Albumin 12/13/2018 12/13/2017 (Perf ormed elsewhere), 01/19/2017, 12/02/2015, Additional history exists Depression Screening (Annual PHQ-2) 11/06/2023 Fall Risk Screen (Annual) 11/06/2023 COVID-19 Vaccine (8 - 2023-2 5 season) 2024 10/06/2023, 03/06/2023, 07/16/2022, Additional history exists Influenza Vaccine (#1) 2024 , 08/03/2022, 07/24/2021, Additional history exists Hemoglobin A1C 11/07/2024 05/07/2024, 12/2022, 03/06/2023, Additional history exists Creatinine Level (Kidney Fun ction Test) 05/14/2025 05/14/2024, 05/07/2024, 09/07/2023, Additional history exists Potassium Level 05/14/2025 05/14/2024, 07/0 12/2023, 09/07/2023, Additional history exists Sodium Level 05/14/2025 05/14/2024, 07/0 12/2023, 09/07/2023, Additional history exists DTaP,Tdap,and Td Vaccines (4 - Td or Tdap) 08/07/2030 08/07/2020, 09/07/2010, 09/07/2010, Additional history exists Colonoscopy Discontinued 04/25/2013 Colorectal Cancer Screening Discontinued Zoster Vaccines Completed 03/30/2018, 01/04, 01/04/2018, Additional history exists Pneumococcal vaccine (65+ years) Completed 03/07/2023, 10/08/2014, 02/12/2014, Additional history exists RSV vaccine - (32-3 6 weeks) or 60+ years Completed 07/21/2023 Mammogram Discontinued 09/21/2023, 12/2021, 03/31/2017, Additional history exists CT Colonography Discontinued Cologuard Discontinued FIT Discontinued Procedures Procedure Name Priority Date/Time Associated Diagnosis [...] 03/31/2017 9:13 AM CDT Addenda Addendum by Amy Rodriguez M.D. on 03/31/2017 9:13 AM CDT RAD^^^OW [...] Benign. Procedure Note Vijay Patel M.D. / Amy Rodriguez M.D. - 04/27/2017 Exam: MA Mammo Screening [...] approximately 10%. Code: 2 - Benign. Emelia Chavez(Tomy), Mika)(M) IMG BI PROCEDURES * (ABNORMAL) Microalbumin, Random, Urine (01/19/2017 9:56 AM CDT) Creatinine, Random, U 297(H) 29 - 226 MGDL POWERCHART HXU Albumin % 170.9 MGL POWERCHART Albumin/Creatin ine Ratio 58(H) 0 - 25 MGG POWERCHART Urine 01/19/2017 9:56 AM CDT Naren Krugre M.D. LAB URINE ORDERABL ES POWERCHART from Last 3 Months or Most Recently Relevant to Health Maintenance Care Teams Radarman Relationship Specialty Start Date End Date Elsewhere, Pcp PCP - General Family Medicine 01/30/19
== END 2024-08-06 07:53 | disposition home or self-care (01) ==
PROVIDERS: PCP Family Medicine; Visit Provider Nurse Practitioner Family
DX: I87.2 Venous insufficiency (chronic) (peripheral) (principal); E11.622 Type 2 diabetes mellitus with other skin ulcer; L97.322 Non-pressure chronic ulcer of left ankle with fat layer exposed; Z79.84 Long term (current) use of oral hypoglycemic drugs
CPT/HCPCS: 11042; G0463

== ENCOUNTER 2024-08-13 08:07 | Outpatient (CLI) | payer MEDICARE, BC, SELFPAY ==
--- OUTSIDE RECORDS SUMMARY | 2024-08-13 08:10 | XMS_ITS | Clinical Summary ---
Author Organization [facility] Address [place], [place] [address] Care Team Providers Care Parts Professional Name Role Phone Ashutosh Gonzales MD Primary Care Provider Qiana Huntley RN Unavailable [phone] Unavailable [phone] Allergies Active Allergy Reactions Criticality Noted Date Comments Cat Dander Other - Describe In Comment Field 02/05/2018 Losartan Other - Describe In Comment Field 07/28/2022 Increased Creatinine and potassium Medications Medication Sig Dispensed Refills Start Date End Date Status Vit A,C,H-Wfed-Oyrmgm (PRESERVISION AREDS) [phone] [id number]-[id number] cap Take 1 tablet twice daily 90 [...] Tablet 1 03/20/2024 Active blood sugar diagnostic (Sedia BiosciencesTouch Verio test strips) stripIndications:Ibis betes mellitus without [...] Encounters Date Type Department Care Team Description 08/07/2024 8:30 AM CDT Office Visit [facility] [place] [address] [place] [address] Sandro Smyth, AuD Hearing Aid 08/07/2024 Travel 07/30/2024 3:20 PM CDT Office Visit [facility] [place] [address] [place] [address] Ashutosh Gonzales MD Follow Up (Wart on right foot, wound on left lower leg) 07/17/2024 Telephone [facility] [place] [address] [facility] [place] [address] Ashutosh Gonzales MD schedule referral 07/15/2024 2:00 PM CDT Nurse/Clinic Staff Only [address] [address] Immunization/Inject ion (B-12 inj) 07/15/2024 Travel 06/27/2024 1:40 PM CDT Office Visit [address] [address] Ashutosh Gonzales MD Follow Up (Sore on lower left leg and toe on right foot) 06/27/2024 Travel 06/19/2024 3:45 PM CDT Office Visit [address] [address] Ashutosh Gonzales MD Follow Up (Right foot second toe); Leg Pain/problem (Sore on left lower leg, noticed two weeks ago) 06/19/2024 Travel 06/13/2024 2:00 PM CDT Nurse/Clinic Staff Only [address] [address] 06/13/2024 Travel 05/28/2024 2:05 PM CDT Office Visit [address] [address] Ashutosh Gonzales MD Recheck (recheck toe/); Results (go over labs from 2 weeks ago) 05/28/2024 Travel 05/14/2024 2:55 PM CDT Office Visit [address] [address] Ashutosh Gonzales MD Diabetes (Follow up); Medication Management (Discuss diabetic medications ) 05/14/2024 Orders Only [facility] [place] [address] [place] [address] Ashutosh Gonzales MD <No scans attached> 05/13/2024 2:00 PM CDT Nurse/Clinic Staff Only [facility] [place] [address] [place] [address] Immunization/Inject ion (VITAMIN B-12 INJECTION ) 05/13/2024 Telephone [facility] [address] [place] [address] Qiana Huntley RN [facility] 05/13/2024 Travel from Last 3 Months Immunizations Name Administration Dates Next Due AMB Influenza, IIV3 (Age >=3 years)(Flu Clinic Only) 08/25/2010 COVID-19 vaccine ([employer] 30mcg/0.3mL) 12YO+ RONNY-SUCROSE PF, MDV 02/18/2022 COVID-19 vaccine ([employer] 30mcg/0.3mL) PF, MDV 08/05/2021,01/16/2021,12/26/2020 Influenza A [...] Care Team (Late st Contact Info) Description 08/15/2024 2:00 PM CDT Nurse/Clinic Staff Only [facility] [place] [address] [place] [address] 08/22/2024 1:00 PM CDT Office Visit [facility] [place] [address] [place] [address] Sabino Conway MD [address] [place] [address] 08/29/2024 3:00 PM CDT Office Visit [facility] [place] [address] [place] [address] Sandro Smyth AuD [address] [place] [phone] 09/12/2024 1:00 PM PIPE INSULATOR HELPER Orders Only [facility] [place] [address] [place] [address] Lab, [place] 09/12/2024 1:15 PM PIPE INSULATOR HELPER Office Visit [facility] [place] [address] [place] [address] Ashutosh Gonzales MD [address] [place] [address] Health Maintenance Due Date Last Done Comments [...] CDT Stage 3a chronic kidney disease (HC) ANTI HCV Routine 07/10/2020 4:22 PM CDT Need for hepatitis C screening test OCCULT BLOOD IFOBT STOOL Routine 12/06/2019 4:00 PM PIPE INSULATOR HELPER Screening for colon cancer XR DXA BONE DENSITY 2 SITES AXIAL Routine 06/20/2019 1:42 PM CDT Osteoporosis, unspecified osteoporosis type, unspecified pathological fracture presence from Last 3 Months or Most Recently Relevant to Health Maintenance Results * (ABNORMAL) BASIC METABOLIC PANEL (05/14/2024 3:53 PM CDT) SODIUM 138 136 - 145 mmol/L 05/15/2024 12:09 AM T [facility] POTASSIUM 5.3(H) 3.5 - 5.1 mmol/L 05/15/2024 12:09 AM T [facility] CHLORIDE 99 98 - 107 mmol/L 05/15/2024 12:09 AM T [facility] CO2,TOTAL 26 22 - 29 mmol/L 05/15/2024 12:09 AM T [facility] ANION GAP 13 5 - 18 05/15/2024 12:09 AM T [facility] GLUCOSE 88 70 - 99 mg/dL 05/15/2024 12:09 AM T [facility] CALCIUM 9.4 8.8 - 10.2 mg/dL 05/15/2024 12:09 AM T [facility] BUN 28(H) 8 - 23 mg/dL 05/15/2024 12:09 AM T [facility] CREATININE 1.37(H) 0.50 - 0.90 mg/dL 05/15/2024 12:09 AM T [facility] BUN/CREAT RATIO 20 10 - 20 12:09 AM [facility] eGFR 40(L) >90 mL/min/1.7 3m2 05/15/2024 12:09 AM T [facility] Comment:As of 2022, eG FR [...] 3:55 PM CDT Ashutosh Gonzales MD CHEMISTRY [facility] [address] [place] [address], * ANTI HCV (07/10/2020 4:22 PM CDT) HEPATITIS C ANTIBODY Non-React manny Non-React manny 07/10/2020 9:24 PM CDT [facility] Comment:Antibodies to HCV no t detected; does not exclude the possibility of exposure to HCV. Blood BLOOD SPECIMEN / Unknown Venipuncture / Unknown 07/10/2020 4:22 PM CDT 07/10/2020 4:24 PM CDT Ashutosh Gonzales MD SEND OUTS Performing Organization Address [facility]/ZIP Co de Phone Number [facility] [address] [place] [address], * OCCULT BLOOD IFOBT STOOL (12/06/2019 4:00 PM PIPE INSULATOR HELPER) STOOL BLOOD ,IFOBT Negative Negative 12/07/2019 10:31 AM PIPE INSULATOR HELPER [facility] Stool STOOL SPECIMEN / Unknown Non-Blood / Unknown 12/06/2019 4:00 PM PIPE INSULATOR HELPER 12/07/2019 10:23 AM PIPE INSULATOR HELPER Ashutosh Gonzales MD LABORATORY Performing Organization Address City/[facility]/ZIP Co de Phone Number [facility] [address] [place] [address], * (ABNORMAL) XR DXA BONE DENSITY 2 SITES AXIAL (06/20/2019 1:42 PM CDT) Anatomical Region Laterality Modality Spine, HIPS, HIPL, HIPR Other Narrative 06/21/2019 12:50 PM CDT Please see scanned document for results of this study. Ashutosh Gonzales MD DEXA from Last 3 Months or Most Recently Relevant to Health Maintenance Advance Directives Documents on File Type Date Recorded Patient Top Loader Expl anation Healthcare Directive 05/02/2013 12:00 AM A DVANCE DIRECTIVE * Full Code (Latest Code Status on File) Date Activated Date Inactivated Comments 03/06/2014 7:28 PM 03/09/2014 5:42 PM Care Teams Parts Professional Relationship Specialty Start Date End Date Ashutosh Gonzales MD [address] [place] [address] PCP - General Family Practice 07/21/17 Qiana Huntley RN [address] [place] [address] Laundry Manager 12/31/[address] [facility] [place] [address] Laundry Manager Hand Bookbinder 12/31/20
--- OUTSIDE RECORDS SUMMARY | 2024-08-13 08:10 | XMS_ITS | Referral Summary ---
Author Organization [facility] Address [address] [place] [address] Care Team Providers Care Private Wealth Advisor Name Role Phone Elsewhere, Pcp Primary Care Provider Unavailabl e Source Comments Patient records contain information from all sites at [facility]. For routine questions regarding patient records, call [phone] during business hours, M-F 8:00 AM - 5:00 PM Central Time. Record requests for emergency care only can be directed to [phone] at any time.[facility] Allergies Active Allergy Reactions Criticality Noted [...] Relevant to Health Maintenance Results * (ABNORMAL) Hemoglobin A1c (06/28/2017 11:19 AM CDT) Hemoglobin A1c, B 6.3(H) <=5.6 A1C POWERCHART Blood 06/28/2017 11:1 9 AM CDT Naren Krugre M.D. LAB BLOOD ADD-ON POWERCHART NA * BI Breast Screening Bilateral (03/31/2017 9:13 [...] 10%. Code: 2 - Benign. Emelia Chavez(R), Scott(R)(M) IMG BI PROCEDURES * (ABNORMAL) Microalbumin, Random, Urine (01/19/2017 9:56 AM CDT) Creatinine, Random, U 297(H) 29 - 226 MGDL POWERCHART HXU Albumin % 170.9 MGL POWERCHART Albumin/Creatin ine Ratio 58(H) 0 - 25 MGG POWERCHART Urine 01/19/2017 9:56 AM CDT Naren Kruger M.D. LAB URINE ORDERABL ES POWERCHART from Last 3 Months or Most Recently Relevant to Health Maintenance Care Teams Private Wealth Advisor Relationship Specialty Start Date End Date Elsewhere, Pcp PCP - General Family Medicine 01/30/19
--- OUTSIDE RECORDS SUMMARY | 2024-08-13 08:10 | XMS_ITS | Clinical Summary ---
Author Organization [facility] Address [address] [place] [address] Care Team Providers Care Spa Associate Name Role Phone Elsewhere, Pcp Primary Care Provider Unavailabl e Source Comments Patient records contain information from all sites at [facility]. For routine questions regarding patient records, call [phone] during business hours, M-F 8:00 AM - 5:00 PM Central Time. Record requests for emergency care only can be directed to [phone] at any time.[facility] Allergies Active Allergy Reactions Criticality Noted Date [...] Blood 06/28/2017 11:1 9 AM CDT Naren Kruger M.D. LAB BLOOD ADD-ON POWERCHART NA * [...] Recently Relevant to Health Maintenance Care Teams Spa Associate Relationship Specialty Start Date End Date Elsewhere, Pcp PCP - General Family Medicine 01/30/19
--- OUTSIDE RECORDS SUMMARY | 2024-08-13 08:10 | XMS_ITS ---
Author Organization [facility] Address [address] [place] [address] Care Team Providers Care Division Order Analyst Name Role Phone Unavailable Unavailable Unavailable Surgery Details Not on file Complications Check Surgery Details section. Procedure Estimated Blood Loss Check Surgery Details section. Procedure Findings Check Surgery Details section. Procedure Specimens Taken Check Surgery Details section.
== END 2024-08-13 08:08 | disposition home or self-care (01) ==
LOC: WOUND 08:08
PROVIDERS: PCP Family Medicine; Visit Provider Nurse Practitioner Family
DX: I87.2 Venous insufficiency (chronic) (peripheral) (principal); E11.622 Type 2 diabetes mellitus with other skin ulcer; L97.322 Non-pressure chronic ulcer of left ankle with fat layer exposed; Z79.84 Long term (current) use of oral hypoglycemic drugs
CPT/HCPCS: 97597

== ENCOUNTER 2024-08-20 08:05 | Outpatient (CLI) | payer MEDICARE, BC, SELFPAY ==
--- OUTSIDE RECORDS SUMMARY | 2024-08-20 08:09 | XMS_ITS ---
Author Organization [facility] Address [address] [place] [address] Care Team Providers Care Church Business Administrator Name Role Phone Unavailable Unavailable Unavailable Surgery Details Not on file Complications Check Surgery Details section. Procedure Estimated Blood Loss Check Surgery Details section. Procedure Findings Check Surgery Details section. Procedure Specimens Taken Check Surgery Details section.
--- OUTSIDE RECORDS SUMMARY | 2024-08-20 08:09 | XMS_ITS | Referral Summary ---
Author Organization [facility] Address [address] [place] [address] Care Team Providers Care Home Economist Consumer Service Name Role Phone Elsewhere, Pcp Primary Care Provider Unavailabl e Source Comments Patient records contain information from all sites at [facility]. For routine questions regarding patient records, call [phone] during business hours, M-F 8:00 AM - 5:00 PM Central Time. Record requests for emergency care only can be directed to [phone] at any time.[facility] Allergies Active Allergy Reactions Criticality Noted Date Comments Cat Dander Other (see comments) High 02/05/2018 Runny nose itchy eyes Losartan Other (see comments) 07/28/2022 Increased Creatinine and potassium Pollen Extracts Other (see comments) Low 07/31/2018 Runny nose, itchy eyes Medications * This document contains information received from the source organization and may not represent a complete record from that organization. aspirin [address] tablet Take 1 tablet by mouth daily. 4 Active atorvastatin (LIPITOR) 40 mg tablet Take 1 tablet by mouth at bedtime. 7 Active cyanocobalamin (VITAMIN B12) 500 mcg tablet Take 1,000 mcg by mouth daily. 8 Active eucalyptus-pepp ermint oil nasal solution Administer 1 application into each nostril 2 (two) times a day. 8 Active fluvoxaMINE (LUVOX) 100 mg tablet Take 250 mg by mouth at bedtime. 8 Active losartan (COZAAR) 50 mg tablet Take 50 mg by mouth at bedtime. 8 Active metFORMIN XR (GLUCOPHAGE-XR) 500 mg 24 hr tablet Take 2,000 mg by mouth every evening. 8 Active vit C/E/Zn/coppr/kaya tein/zeaxan (PRESERVISION AREDS-2 ORAL) Take 1 capsule by mouth 2 (two) times a day. 6 Active omeprazole (PriLOSEC) 20 mg capsule Take 1 tablet by mouth daily. 7 Active blood sugar diagnostic strips USE TO TEST BLOOD GLUCOSE LEVELS TWICE DAILY. 9 Active montelukast (SINGULAIR) 10 mg tablet Take 10 mg by mouth. 8 Active naproxen sodium (ALEVE/ANAPROX) 220 mg tablet Take 1 tablet by mouth daily as needed 7 Active glipiZIDE (GLUCOTROL XL) 5 mg 24 hr tablet Take 2.5 mg by mouth daily. before meal 1 9 Active torsemide (DEMADEX) 20 mg tablet Take 40 mg by mouth daily. Active magnesium 200 mg tablet Take 200 mg by mouth every morning before breakfast. Active losartan (COZAAR) 100 mg tablet Take 100 mg by mouth daily. 1 Active dulaglutide (Trulicity) 1.5 mg/0.5 mL pen injector injection Inject 1.5 mg under the skin once a week. 1 Active magnesium oxide,aspartate ,citr 400 mg magnesium capsule Take 400 mg by mouth. 1 Active pyridoxine, vitamin B6, (B-6) 100 mg tablet Take 100 mg by mouth daily. Active metoprolol succinate (TOPROL-XL) 50 mg 24 hr tablet Take 50 mg by mouth daily. 2 Active amLODIPine (NORVASC) 2.5 mg tablet Take 5 mg by mouth. 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 LAB BLOOD ADD-ON Edited Re sult - Final POWERCHART NA * (ABNORMAL) BMP (Basic Metabolic Panel) (06/28/2017 11:18 AM CDT) Sodium, S 127(L) 135 - 145 MMOLL POWERCHART Potassium, S 5.7(H) 3.6 - 5.2 MMOLL POWERCHART Chloride, S 89(L) 98 - 107 MMOLL POWERCHART CO2 Total 27 22 - 29 MMOLL POWERCHART Comment:Reference ranges hav e not been established for patients that are <12 months of age. BUN (Blood Urea Nitrogen), S 16 6 - 21 MGDL POWERCHART Creatinine 0.76 0.60 - 1.10 MGDL POWERCHART Calcium, Total, S 9.7 8.8 - 10.3 MGDL POWERCHART Anion Gap 11 7 - 15 MMOLL POWERCHART HXeGFR (MDRD) >60 >=60 [id number] POWERCHART eGFR Black/ >60 >=60 [id number] POWERCHART Glucose 92 70 - 139 MGDL POWERCHART Blood 06/28/2017 11:1 8 AM CDT Christie Moffett APRN, C.N.P., R.N. LAB BLOOD ADD- ON Edited Result - Final POWERCHART NA * BI Breast Screening Bilateral [...] Code: 2 - Benign. Emelia Chavez(R), R.TLori(R)(M) IM BI P ROCEDURES Edited Result - Final * (ABNORMAL) Microalbumin, Random, Urine (01/19/2017 9:56 AM CDT) Creatinine, Random, U 297(H) 29 - 226 MGDL POWERCHART HXU Albumin % 170.9 MGL POWERCHART Albumin/Creatin ine Ratio 58(H) 0 - 25 MGG POWERCHART Urine 01/19/2017 9:56 AM CDT Naren Kruger M.D. LAB URINE ORDERABLES Final Result POWERCHART from Last 3 Months or Most Recently Relevant to Health Maintenance Insurance MEDICARE [facility] Care Teams Home Economist Consumer Service Relationship Specialty Start Date End Date Elsewhere, Pcp PCP - General Family Medicine 01/30/19
--- OUTSIDE RECORDS SUMMARY | 2024-08-20 08:09 | XMS_ITS | Clinical Summary ---
Author Organization [facility] Address [address] [place] [address] Care Team Providers Care Welt Pocket Machine Operator Name Role Phone Elsewhere, Pcp Primary Care Provider Unavailabl e Source Comments Patient records contain information from all sites at [facility]. For routine questions regarding patient records, call [phone] during business hours, M-F 8:00 AM - 5:00 PM Central Time. 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 Gender Identity Female 05/06/2021 10:16 AM CDT [...] Fall Risk Screen (Annual) 11/06/2023 COVID-19 Vaccine (2023-2 5 season) 2024 10/06/2023, 03/06/2023, 07/16/2022, Additional history exists Influenza Vaccine (#1) 2024 , 08/03/2022, 07/24/2021, Additional history exists Hemoglobin A1C 11/07/2024 05/07/2024, 11/0 12/2022, 03/06/2023, Additional history exists Creatinine Level [...] 60+ years Completed 07/21/2023 Mammogram Discontinued 09/21/2023, 110 12/2021, 03/31/2017, Additional history exists CT Colonography [...] 15 MMOLL POWERCHART HXeGFR (MDRD) >60 >=60 [id number] POWERCHART eGFR Black/ >60 >=60 [id number] POWERCHART Glucose 92 70 - 139 MGDL POWERCHART Blood 06/28/2017 11:1 8 AM CDT Christie Guevara Betina MCNEAL C.N.P., R.N. LAB BLOOD ADD- ON Edited [...] 2 - Benign. Emelia Chavez(R), Scott(R)(M) IMG HILDA ROBBINS Edited Result - Final * (ABNORMAL) Microalbumin, [...] Recently Relevant to Health Maintenance Insurance MEDICARE [facility] Care Teams Welt Pocket Machine Operator Relationship Specialty Start Date End Date Elsewhere, Pcp PCP - General Family Medicine 01/30/19
--- OUTSIDE RECORDS SUMMARY | 2024-08-20 08:09 | XMS_ITS | Clinical Summary ---
Author Organization [facility] Address [place], [place] [address] Care Team Providers Care Clipper Counters Name Role Phone Ashutosh Gonzales MD Primary Care Provider Qiana Huntley RN Unavailable [phone] Unavailable [phone] Allergies Active Allergy Reactions Criticality Noted Date Comments Cat Dander Other - Describe In Comment Field 02/05/2018 Losartan Other - Describe In Comment Field 07/28/2022 Increased Creatinine and potassium Medications Medication Sig Dispensed Refills Start Date End Date Status Vit A,C,G-Ebwf-Dcsado (PRESERVISION AREDS) 14,[id number] kxdt-rc-ogcm cap Take 1 tablet twice daily 90 [...] Tablet 1 03/20/2024 Active blood sugar diagnostic (CatchFreeTouch Verio test strips) stripIndications:Ibis betes mellitus without [...] Encounters Date Type Department Care Team Description 08/15/2024 2:00 PM CDT Nurse/Clinic Staff Only [facility] [address] [place] [address] Immunization/Inject ion (VITAMIN B-12 INJECTION ) 08/15/2024 Travel 08/07/2024 8:30 AM CDT Office Visit [facility] [address] [place] [address] Sandro Smyth, AuD Hearing Aid 08/07/2024 Travel 07/30/2024 3:20 PM CDT Office Visit [address] [address] Ashutosh Gonzales MD Follow Up (Wart on right foot, wound on left lower leg) 07/17/[address] [address] Ashutosh Gonzales MD schedule referral 07/15/2024 2:00 PM CDT Nurse/Clinic Staff Only [address] [address] Immunization/Inject ion (B-12 inj) 07/15/2024 Travel 06/27/2024 1:40 PM CDT Office Visit [address] [address] Ashutosh Gonzales MD Follow Up (Sore on lower left leg and toe on right foot) 06/27/2024 Travel 06/19/2024 3:45 PM CDT Office Visit [address] [address] Ashutosh Gonzales MD Follow Up (Right foot second toe); Leg Pain/problem (Sore on left lower leg, noticed two weeks ago) 06/19/2024 Travel 06/13/2024 2:00 PM CDT Nurse/Clinic Staff Only [address] [address] 06/13/2024 Travel 05/28/2024 2:05 PM CDT Office Visit [address] [address] Ashutosh Gonzales MD Recheck (recheck toe/); Results (go over labs from 2 weeks ago) 05/28/2024 Travel from Last 3 Months Immunizations Name Administration Dates Next Due AMB Influenza, IIV3 (Age >=3 years)(Flu Clinic Only) 08/25/2010 COVID-19 vaccine (AppVault-Bio NTech 30mcg/0.3mL) 12YO+ RONNY-SUCROSE PF, MDV 02/18/2022 COVID-19 vaccine (AppVault-Bio NTech 30mcg/0.3mL) PF, MDV 08/05/2021,01/16/2021,12/26/2020 Influenza A [...] Status Comments Brother Alive Father (Age 50) [place] Mother Alive Social History Tobacco Use Types [...] Care Team (Late st Contact Info) Description 08/22/2024 1:00 PM CDT Office Visit [facility] [address] [place] [address] Sabino Conway MD [address] [place] [address] 08/29/2024 3:00 PM CDT Office Visit [facility] [address] [place] [address] Sandro Smyth AuD [address] [place] [phone] 09/12/2024 1:00 PM PLANNING OFFICIAL Orders Only [facility] [address] [place] [address] [place], [place] 09/12/2024 1:15 PM PLANNING OFFICIAL Office Visit [facility] [address] [place] [address] Ashutosh Gonzales MD [address] [place] [address] Health Maintenance Due Date Last Done Comments [...] Additional history exists Tetanus booster 08/07/2030 08/07/2020, 11/0 12/2009, 04/12/2004 Zoster (shingles) series for age [...] Procedure Name Priority Date/Time Associated Diagnosis Comments ANTI HCV Routine 07/10/2020 4:22 PM CDT Need for hepatitis C screening test OCCULT BLOOD IFOBT STOOL Routine 12/06/2019 4:00 PM PLANNING OFFICIAL Screening for colon cancer XR DXA BONE DENSITY 2 SITES AXIAL Routine 06/20/2019 1:42 PM CDT Osteoporosis, unspecified osteoporosis type, unspecified pathological fracture presence from Last 3 Months or Most Recently Relevant to Health Maintenance Results * ANTI HCV (07/10/2020 4:22 PM CDT) [facility] HEPATITIS C ANTIBODY Non-React manny Non-React manny 07/10/2020 9:24 PM CDT [facility] Comment:Antibodies to HCV no t detected; does not exclude the possibility of exposure to HCV. Blood BLOOD SPECIMEN / Unknown Venipuncture / Unknown 07/10/2020 4:22 PM CDT 07/10/2020 4:24 PM CDT Ashutosh Gonzales MD [facility] [address] [place] [address], * OCCULT BLOOD IFOBT STOOL (12/06/2019 4:00 PM PLANNING OFFICIAL) Pathologist [facility] STOOL BLOOD ,IFOBT Negative Negative 12/07/2019 10:31 AM PLANNING OFFICIAL [facility] Stool STOOL SPECIMEN / Unknown Non-Blood / Unknown 12/06/2019 4:00 PM PLANNING OFFICIAL 12/07/2019 10:23 AM PLANNING OFFICIAL Ashutosh Gonzales MD LABORATORY [facility] [address] [place] [address], * (ABNORMAL) XR DXA BONE DENSITY 2 SITES AXIAL (06/20/2019 1:42 PM CDT) Anatomical Region Laterality Modality Spine, HIPS, HIPL, HIPR Other Narrative 06/21/2019 12:50 PM CDT Please see scanned document for results of this study. Ashutosh Gonzales MD DEXA from Last 3 Months or Most Recently Relevant to Health Maintenance Advance Directives Documents on File Type Date Recorded Patient Special Events Driver Expl anation Healthcare Directive 05/02/2013 12:00 AM A DVANCE DIRECTIVE * Full Code (Latest Code Status on File) Date Activated Date Inactivated Comments 03/06/2014 7:28 PM 03/09/2014 5:42 PM Care Teams Clipper Counters Relationship Specialty Start Date End Date Ashutosh Gonzales MD [address] [place] [address] PCP - General Family Practice 07/21/17 Qiana Huntley, RN [address] [place] [address] De Icer Kit Assembler 12/31/[address] [place] [address] [place] [address] De Icer Kit Assembler Size Roller Operator 12/31/20
--- NOTE | 2024-08-20 09:15 | CRLHL7_ITS ---
For Patients: As a result of the Cures Act, medical imaging exams and procedure reports are released immediately into your electronic medical record. You may view this report before your referring provider. If you have questions, please contact your health care provider. INDICATION: Nonhealing ulcers lower extremities; rule out vascular insufficiency. COMPARISON: None. TECHNIQUE: Duplex ultrasound evaluation arterial system both lower extremities; color Doppler duplex assessment. FINDINGS: Right leg: Common femoral artery 113 cm/second multiphasic. Deep femoral artery 58 cm/second multiphasic. Proximal SFA 67 cm/second multiphasic. Mid SFA 106 cm/sec and multiphasic. Distal SFA 72 cm/second multiphasic. Popliteal artery 50 cm/second multiphasic. Peroneal artery 67 cm/second multiphasic. HOME CARE MANAGER RN 29 cm/second multiphasic. JAMIN 78 cm/second multiphasic. DPA 69 cm/second multiphasic. Left lower extremity: Common femoral artery 106 cm/second multiphasic. Deep femoral artery 56 cm/second multiphasic. Proximal SFA 73 cm/second multiphasic. Mid SFA 91 cm/second multiphase. Distal SFA 78 cm/second multiphasic. Popliteal artery 54 cm/second multiphasic. Peroneal artery 54 cm/sec on multiphasic. HOME CARE MANAGER RN 16 cm/sec multi phase. JAMIN 68 cm/sec multiphasic. DPA 96 cm/second multi phasic. IMPRESSION: Normal duplex ultrasound evaluation arterial system both lower extremities without any focal significant narrowing on either side. Dictated by Mechelle Ward MD @ 08/22/2024 11:13:57 AM (Electronically Signed)
== END 2024-08-20 08:06 | disposition home or self-care (01) ==
LOC: US 08:05
PROVIDERS: PCP Family Medicine; Visit Provider Nurse Practitioner Family
DX: L97.412 Non-pressure chronic ulcer of right heel and midfoot with fat layer exposed (principal); E11.622 Type 2 diabetes mellitus with other skin ulcer; I87.2 Venous insufficiency (chronic) (peripheral)
CPT/HCPCS: 93926; 97597

== ENCOUNTER 2024-08-27 08:04 | Outpatient (CLI) | payer MEDICARE, BC, SELFPAY ==
--- OUTSIDE RECORDS SUMMARY | 2024-08-27 08:06 | XMS_ITS | Clinical Summary ---
Author Organization [facility] Address [place], [place] [address] Care Team Providers Care Executive Director Of Nursing Name Role Phone Ashutosh Gonzales MD Primary Care Provider Qiana Huntley RN Unavailable [phone] Unavailable [phone] Allergies Active Allergy Reactions Criticality Noted Date Comments Cat Dander Other - Describe In Comment Field 02/05/2018 Losartan Other - Describe In Comment Field 07/28/2022 Increased Creatinine and potassium Medications Medication Sig Dispensed Refills Start Date End Date Status Vit A,C,N-Bkkq-Upcyxk (PRESERVISION AREDS) 14,[id number] usdp-eu-zmcq cap Take 1 tablet twice daily 90 Cap 3 07/07/2017 Active medication order composer Calcium 0 12/04/2019 Active magnesium oxide,aspartate,cit r 400 mg magnesium cap Take 400 mg by mouth once daily. 0 03/08/2021 Active empagliflozin (JARDIANCE) 10 mg tabletIndications:D iabetes mellitus without complication (HC) Take 1 Tablet (10 mg) by mouth once daily. 90 Tablet 3 01/17/2024 Active fluvoxaMINE (LUVOX) 100 mg tabletIndications:C ompulsive behaviors,Obsessive -compulsive disorder, unspecified type TAKE ONE AND ONE-HALF TABLETS BY MOUTH TWICE DAILY 270 Tablet 1 03/20/2024 Active blood sugar diagnostic (OneTouch Verio test strips) stripIndications:Di abetes mellitus without complication (HC) USE TO TEST BLOOD SUGARS TWICE DAILY 200 Each 3 04/11/2024 Active dulaglutide (TRULICITY) 1.5 mg/0.5 mL subcutaneous penIndications:Diab etes mellitus without complication (HC) Inject 1.5 mg subcutaneous once weekly. 6 mL 1 04/29/2024 Active amLODIPine (NORVASC) 5 mg tabletIndications:H TN (hypertension) Take 1 Tablet (5 mg) by mouth once daily. 90 Tablet 3 05/14/2024 Active atorvastatin (LIPITOR) 40 mg tabletIndications:M ixed hyperlipidemia Take 1 Tablet (40 mg) by mouth at bedtime. 90 Tablet 3 05/14/2024 Active esomeprazole (NexIUM) 20 mg capsuleIndications: Chronic GERD Take 1 Capsule (20 mg) by mouth once daily before a meal. 90 Capsule 05/14/2024 Active metFORMIN (GLUCOPHAGE XR) 500 mg Extended-Release tabletIndications:D iabetes mellitus without complication (HC) Take 4 Tablets (2,000 mg) by mouth once daily with evening meal. 360 Tablet 05/14/2024 Active metoprolol succinate (TOPROL XL) 50 mg sustained-release tabletIndications:C hronic heart failure with preserved ejection fraction (HC) Take 1 Tablet (50 mg) by mouth once daily. 90 Tablet 3 05/14/2024 Active torsemide (DEMADEX) 20 mg tabletIndications:C hronic heart failure with preserved ejection fraction (HC) Take 2 Tablets (40 mg) by mouth once daily. 180 Tablet 3 05/14/2024 Active honey 100 % psteIndications:Ski n ulcer due to varicose veins (HC) Apply topically to affected area(s). 103 mL 06/27/2024 Active CPAPIndications:Obs tructive sleep apnea CPAP machine for home use at pressure 14 cmw, full face mask x1/3month with a full face cushion x1/mo 1 Each 08/22/2024 Active CPAPIndications:Obs tructive sleep apnea CPAP machine for home use at pressure 14 cmw, full face mask x1/3month with a full face cushion x1/mo 1 Each 11/10/2021 08/22/20 24 Discontinu ed(Reorder (E-cancel not sent)) Hospital, Clinic, or Other Facility Administered Medication Ordered Dose Route Frequency Start Date End Date Status cyanocobalamin (VITAMIN B12) 1,000 mcg/mL injection 1,000 mcgIndications:Vitam in B 12 deficiency 1000 mcg IM Q 4 WEEKS (28 days) 09/26/2023 08/26/2024 Ended Active Problems Problem Noted Date Diagnosed Date Stage 3a chronic kidney disease 07/20/2023 Lipodermatosclerosis of both lower extremities 0 11/26/2020 Sensorineural hearing loss, bilateral 03/17/2020 Overview (02/04/2022): Hearing aides Heart failure with preserved ejection fraction 0 12/27/2019 Iron deficiency anemia 12/13/2019 Positive for macroalbuminuria 12/13/2019 RESHMA AHI- 52 FFM heated hose 09/17/20 Hoarding disorder 08/16/2018 Adenomatous colon polyp 06/15/2018 [...] Encounters Date Type Department Care Team Description 08/22/2024 1:00 PM CDT Office Visit [facility] [address] [place] [address] Sabino Conway MD Sleep Follow-up (cpap) 08/22/2024 Travel 08/20/2024 Orders Only [facility] Scanner 1 scan: (1-Ord) [facility], ARTERIAL DUPLEX, 08/20/2024 08/15/2024 2:00 PM CDT Nurse/Clinic Staff Only [address] [address] Immunization/Inject ion (VITAMIN B-12 INJECTION ) 08/15/2024 Travel 08/07/2024 8:30 AM CDT Office Visit [address] [address] Sandro Smyth, AuD Hearing Aid 08/07/2024 Travel 07/30/2024 3:20 PM CDT Office Visit [facility] [address] [place] [address] Ashutosh Gonzales MD Follow Up (Wart on right foot, wound on left lower leg) 07/17/[address] [address] Ashutosh Gonzales MD schedule referral 07/15/2024 2:00 PM CDT Nurse/Clinic Staff Only [address] [address] Immunization/Inject ion (B-12 inj) 07/15/2024 Travel 06/27/2024 1:40 PM CDT Office Visit [address] [address] Ashutosh Gonzales MD Follow Up (Sore on lower left leg and toe on right foot) 06/27/2024 Travel 06/19/2024 3:45 PM CDT Office Visit [address] [address] Ashutosh Gonzales MD Follow Up (Right foot second toe); Leg Pain/problem (Sore on left lower leg, noticed two weeks ago) 06/19/2024 Travel 06/13/2024 2:00 PM CDT Nurse/Clinic Staff Only [facility] [address] [place] [address] 06/13/2024 Travel 05/28/2024 2:05 PM CDT Office Visit [facility] [address] [place] [address] Ashutosh Gonzales MD Recheck (recheck toe/); Results (go over labs from 2 weeks ago) 05/28/2024 Travel from Last 3 Months Immunizations Name Administration Dates Next Due AMB Influenza, IIV3 (Age >=3 years)(Flu Clinic Only) 08/25/2010 COVID-19 vaccine (Zaelab-Bio NTech 30mcg/0.3mL) 12YO+ RONNY-SUCROSE PF, MDV 02/18/2022 COVID-19 vaccine (Zaelab-Bio NTech 30mcg/0.3mL) PF, MDV 08/05/2021,01/16/2021,12/26/2020 Influenza A [...] Status Comments Brother Alive Father (Age 50) [place] Mother Alive Social History Tobacco Use Types [...] file 07/30/2024 Food Insecurity Answer Date Recorded Do you worry your food will run out before you are able to buy more? 1 07/30/2024 Transportation Needs Answer Date Record ed Lack of Transportation (Medical) 1 07/30/2024 Housing Stability Answer Date Recorded What is your housing situation today? 1 07/30/2024 Sex and Gender Information Value [...] Sign Reading Time Taken Comments Blood Pressure 143/80 08/22/2024 1:03 PM CDT Pulse 84 08/22/2024 1:03 PM CDT Temperature 36.8 ??C (98.2 ??F) 02/04/2022 2:59 PM CD T Respiratory Rate 16 02/04/2022 2:59 PM CDT Oxygen Saturation 90% 08/22/2024 1:03 PM CDT Inhaled Oxygen Concentration - - Weight 89.3 kg (196 lb 12.8 oz) 07/30/2024 3:53 PM CDT Height 159.6 cm (5' 2.84) 09/07/2023 2:04 PM CD T Body Mass Index 35.04 09/07/2023 2:04 PM CDT Plan of Treatment Upcoming Encounters Date Type Department Care Team (Late st Contact Info) Description 08/29/2024 3:00 PM CDT Office Visit [facility] [address] [place] [address] Sandro Smyth AuD [address] [place] [address] 09/12/2024 1:00 PM BLOOD BANK CUSTODIAN Orders Only [facility] [address] [place] [address] Lab, [place] 09/12/2024 1:15 PM BLOOD BANK CUSTODIAN Office Visit [facility] [address] [place] [address] Ashutosh Gonzales MD [address] [place] [address] Health Maintenance Due Date Last Done Comments [...] scan for age 65+ Completed 06/20/2019, 10/2011 Hepatitis C screening for ag e 18-79 Completed 07/10/2020 Tdap Completed 08/07/2020, 09/07/2010 Pneumococcal series for age 65+ Completed 03/07/2023, 10/08/2014, 02/12/2014, Additional history exists RSV vaccine for adults or Completed 07/21/2023 Procedures Procedure Name Priority Date/Time Associated Diagnosis Comments SCAN-ULTRASOUND REPORT 08/20/2024 12:00 AM CDT ANTI HCV Routine 07/10/2020 4:22 PM CDT Need for hepatitis C screening test XR DXA BONE DENSITY 2 SITES AXIAL Routine 06/20/2019 1:42 PM CDT Osteoporosis, unspecified osteoporosis type, unspecified pathological fracture presence from Last 3 Months or Most Recently Relevant to Health Maintenance Results * SCAN-ULTRASOUND REPORT (08/20/2024 12:00 AM CDT) Anatomical Region Laterality Modality Other Scanner OTHER * ANTI HCV (07/10/2020 4:22 PM CDT) HEPATITIS C ANTIBODY Non-React manny Non-React manny 07/10/2020 9:24 PM CDT [facility] Comment:Antibodies to HCV no t detected; does not exclude the possibility of exposure to HCV. Blood BLOOD SPECIMEN / Unknown Venipuncture / Unknown 07/10/2020 4:22 PM CDT 07/10/2020 4:24 PM CDT Ashutosh Gonzales MD SEND OUTS [facility] [address] [place] [address], [place] * (ABNORMAL) XR DXA BONE DENSITY 2 SITES AXIAL (06/20/2019 1:42 PM CDT) Anatomical Region Laterality Modality Spine, HIPS, HIPL, HIPR Other Narrative 06/21/2019 12:50 PM CDT Please see scanned document for results of this study. Ashutosh Gonzales MD DEXA from Last 3 Months or Most Recently Relevant to Health Maintenance Advance Directives Documents on File Type Date Recorded Patient Railroad Signal Operator Expl anation Healthcare Directive 05/02/2013 12:00 AM A DVANCE DIRECTIVE * Full Code (Latest Code Status on File) Date Activated Date Inactivated Comments 03/06/2014 7:28 PM 03/09/2014 5:42 PM Care Teams Executive Director Of Nursing Relationship Specialty Start Date End Date Ashutosh Gonzales MD [address] [place] [address] PCP - General Family Practice 07/21/17 Qiana Huntley RN [address] [place] [address] Shoe Cutter 12/31/[address] [place], [place] [address] [phone] Shoe Cutter Mainframe Systems Administrator 12/31/20
--- OUTSIDE RECORDS SUMMARY | 2024-08-27 08:06 | XMS_ITS | Clinical Summary ---
Author Organization [facility] Address [address] [place] [address] Care Team Providers Care Channel Sales Director Name Role Phone Elsewhere, Pcp Primary Care Provider Unavailabl e Source Comments Patient records contain information from all sites at [facility]. For routine questions regarding patient records, call [phone] during business hours, M-F 8:00 AM - 5:00 PM Central Time. 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
--- OUTSIDE RECORDS SUMMARY | 2024-08-27 08:07 | XMS_ITS | Referral Summary ---
Author Organization [facility] Address [address] [place] [address] Care Team Providers Care Mortgage Loan Officer Originator Name Role Phone Elsewhere, Pcp Primary Care Provider Unavailabl e Source Comments Patient records contain information from all sites at [facility]. For routine questions regarding patient records, call [phone] during business hours, M-F 8:00 AM - 5:00 PM Central Time. 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
--- OUTSIDE RECORDS SUMMARY | 2024-08-27 08:07 | XMS_ITS ---
Author Organization [facility] Address [address] [place] [address] Care Team Providers Care Sticker Hand Name Role Phone Unavailable Unavailable Unavailable Surgery Details Not on file Complications Check Surgery Details section. Procedure Estimated Blood Loss Check Surgery Details section. Procedure Findings Check Surgery Details section. Procedure Specimens Taken Check Surgery Details section.
== END 2024-08-27 08:05 | disposition home or self-care (01) ==
LOC: WOUND 08:04
PROVIDERS: PCP Family Medicine; Visit Provider Nurse Practitioner Family
DX: I87.312 Chronic venous hypertension (idiopathic) with ulcer of left lower extremity (principal); I87.2 Venous insufficiency (chronic) (peripheral); E11.622 Type 2 diabetes mellitus with other skin ulcer; L97.325 Non-pressure chronic ulcer of left ankle with muscle involvement without evidence of necrosis; Z79.84 Long term (current) use of oral hypoglycemic drugs
CPT/HCPCS: 11043

== ENCOUNTER 2024-09-03 08:12 | Outpatient (CLI) | payer MEDICARE, BC, SELFPAY | END 2024-09-03 08:13 | disposition home or self-care (01) | LOC: WOUND 08:12 | PROVIDERS: PCP Family Medicine; Visit Provider Nurse Practitioner Family | DX: I87.312 Chronic venous hypertension (idiopathic) with ulcer of left lower extremity (principal); I87.2 Venous insufficiency (chronic) (peripheral); E11.622 Type 2 diabetes mellitus with other skin ulcer; L97.328 Non-pressure chronic ulcer of left ankle with other specified severity; Z79.84 Long term (current) use of oral hypoglycemic drugs | CPT/HCPCS: 11042 ==

== ENCOUNTER 2024-09-10 07:58 | Outpatient (CLI) | payer MEDICARE, BC, SELFPAY | END 2024-09-10 07:59 | disposition home or self-care (01) | LOC: WOUND 07:58 | PROVIDERS: PCP Family Medicine; Visit Provider Nurse Practitioner Family | DX: I87.312 Chronic venous hypertension (idiopathic) with ulcer of left lower extremity (principal); E11.622 Type 2 diabetes mellitus with other skin ulcer; L97.328 Non-pressure chronic ulcer of left ankle with other specified severity; S90.821A Blister (nonthermal), right foot, initial encounter; Z79.84 Long term (current) use of oral hypoglycemic drugs | CPT/HCPCS: 97597; G0463 ==

== ENCOUNTER 2024-09-17 08:00 | Outpatient (CLI) | payer MEDICARE, BC, SELFPAY | END 2024-09-17 08:01 | disposition home or self-care (01) | LOC: WOUND 08:00 | PROVIDERS: PCP Family Medicine; Visit Provider Family Medicine | DX: I87.312 Chronic venous hypertension (idiopathic) with ulcer of left lower extremity (principal); I87.2 Venous insufficiency (chronic) (peripheral); E11.622 Type 2 diabetes mellitus with other skin ulcer; L97.328 Non-pressure chronic ulcer of left ankle with other specified severity; L97.418 Non-pressure chronic ulcer of right heel and midfoot with other specified severity; Z79.84 Long term (current) use of oral hypoglycemic drugs | CPT/HCPCS: 11042; 15271; Q4121 ==

== ENCOUNTER 2024-09-24 08:01 | Outpatient (CLI) | payer MEDICARE, BC, SELFPAY | END 2024-09-24 08:02 | disposition home or self-care (01) | LOC: WOUND 08:02 | PROVIDERS: PCP Family Medicine; Visit Provider Nurse Practitioner Family | DX: I87.312 Chronic venous hypertension (idiopathic) with ulcer of left lower extremity (principal); I87.2 Venous insufficiency (chronic) (peripheral); E11.622 Type 2 diabetes mellitus with other skin ulcer; L97.328 Non-pressure chronic ulcer of left ankle with other specified severity; S90.821A Blister (nonthermal), right foot, initial encounter; Z79.84 Long term (current) use of oral hypoglycemic drugs | CPT/HCPCS: 11042; 97597 ==

== ENCOUNTER 2024-10-01 08:05 | Outpatient (CLI) | payer MEDICARE, BC, SELFPAY ==
--- OUTSIDE RECORDS SUMMARY | 2024-10-01 08:09 | XMS_ITS | Referral Summary ---
Author Organization [facility] Address [address] [place] [address] Care Team Providers Care Contract Associate Name Role Phone Elsewhere, Pcp Primary Care Provider Unavailabl e Source Comments Patient records contain information from all sites at [facility]. For routine questions regarding patient records, call [phone] during business hours, M-F 8:00 AM - 5:00 PM Central Time. 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 LAB BLOOD ADD- ON Edited Result - Final POWERCHART NA * BI Breast Screening Bilateral (03/31/2017 9:13 AM CDT) Anatomical Region Laterality Modality Breast Bilateral Mammography 03/31/2017 9:13 AM CDT Addenda Addendum by ProviderAmy M.D. on 03/31/2017 9:13 AM CDT RAD^^^OW [place] Mammo Screening w CADD 03/31/2017 09:13:26 Narrative 03/31/2017 11:24 AM CDT Exam: [place] Mammo Screening w/ CADD Indication: screening Comparison: [...] M.D. / ProviderAmy M.D. - 04/27/2017 Exam: [place] Mammo Screening w/ CADD Indication: screening Comparison: [...] is approximately 10%. Code: 2 - Benign. us Emelia Chavez(R), R.TLori(R)(M) IM BI P ROCEDURES [...] Recently Relevant to Health Maintenance Insurance MEDICARE [facility] Care Teams Contract Associate Relationship Specialty Start Date End Date Elsewhere, Pcp PCP - General Family Medicine 01/30/19
--- OUTSIDE RECORDS SUMMARY | 2024-10-01 08:09 | XMS_ITS ---
Author Organization [facility] Address [address] [place] [address] Care Team Providers Care Communications Administrator Name Role Phone Unavailable Unavailable Unavailable Surgery Details Not on file Complications Check Surgery Details section. Procedure Estimated Blood Loss Check Surgery Details section. Procedure Findings Check Surgery Details section. Procedure Specimens Taken Check Surgery Details section.
--- OUTSIDE RECORDS SUMMARY | 2024-10-01 08:09 | XMS_ITS | Clinical Summary ---
Author Organization [facility] Address [address] [place] [address] Care Team Providers Care Pododermatologist Name Role Phone Elsewhere, Pcp Primary Care Provider Unavailabl e Source Comments Patient records contain information from all sites at [facility]. For routine questions regarding patient records, call [phone] during business hours, M-F 8:00 AM - 5:00 PM Central Time. 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..] 60+ years Completed 07/21/2023 Mammogram Discontinued 09/21/2023, 11/0 12/2021, 03/31/2017, Additional history exists CT Colonography [...] POWERCHART Blood 06/28/2017 11:1 9 AM CDT us Naren Kruger M.D. LAB BLOOD ADD-ON Edited [...] 15 MMOLL POWERCHART HXeGFR (MDRD) >60 >=60 [id number] POWERCHART eGFR Black/ >60 >=60 [id number] POWERCHART Glucose 92 70 - 139 MGDL POWERCHART Blood 06/28/2017 11:1 8 AM CDT us Christie Moffett Ana MCNEAL, R.N. LAB BLOOD ADD- ON Edited Result - Final POWERCHART NA * BI Breast Screening Bilateral (03/31/2017 9:13 AM CDT) Anatomical Region Laterality Modality Breast Bilateral Mammography 03/31/2017 9:13 AM CDT Addenda Addendum by ProviderAmy M.D. on 03/31/2017 9:13 AM CDT RAD^^^OW [place] Mammo Screening w CADD 03/31/2017 09:13:26 Narrative 03/31/2017 11:24 AM CDT Exam: [place] Mammo Screening w/ CADD Indication: screening Comparison: [...] M.D. / ProviderAmy M.D. - 04/27/2017 Exam: [place] Mammo Screening w/ CADD Indication: screening Comparison: [...] 10%. Code: 2 - Benign. Emelia Chavez(Tomy), Scott(Tomy)(M) IMG BI P ROCEDURES Edited Result - Final [...] Relevant to Health Maintenance Insurance MEDICARE [facility] Care Teams Pododermatologist Relationship Specialty Start Date End Date Elsewhere, Pcp PCP - General Family Medicine 01/30/19
--- OUTSIDE RECORDS SUMMARY | 2024-10-01 08:09 | XMS_ITS | Clinical Summary ---
Author Organization [facility] Address [place], [place] [address] Care Team Providers Care Auto Claims Adjuster Name Role Phone Ashutosh Gonzales MD Primary Care Provider Qiana Huntley RN Unavailable [phone] Unavailable [phone] Allergies Active Allergy Reactions Criticality Noted Date Comments Cat Dander Other - Describe In Comment Field 02/05/2018 Losartan Other - Describe In Comment Field 07/28/2022 Increased Creatinine and potassium Medications Medication Sig Dispensed Refills Start Date End Date Status Vit A,C,U-Pbkg-Joihxs (PRESERVISION AREDS) [phone] bonr-fc-xrdt cap Take 1 tablet twice daily 90 Cap 3 7 Active medication order composer Calcium 0 0 Active magnesium oxide,aspartate,cit r 400 mg magnesium cap Take 400 mg by mouth once daily. 0 1 Active empagliflozin (JARDIANCE) 10 mg tabletIndications:D iabetes mellitus without complication (HC) Take 1 Tablet (10 mg) by mouth once daily. 90 Tablet 3 4 Active blood sugar diagnostic (OneTouch Verio test strips) stripIndications:Di abetes mellitus without complication (HC) USE TO TEST BLOOD SUGARS TWICE DAILY 200 Each 3 4 Active amLODIPine (NORVASC) 5 mg tabletIndications:H TN (hypertension) Take 1 Tablet (5 mg) by mouth once daily. 90 Tablet 3 4 Active atorvastatin (LIPITOR) 40 mg tabletIndications:M ixed hyperlipidemia Take 1 Tablet (40 mg) by mouth at bedtime. 90 Tablet 3 4 Active metoprolol succinate (TOPROL XL) 50 mg sustained-release tabletIndications:C hronic heart failure with preserved ejection fraction (HC) Take 1 Tablet (50 mg) by mouth once daily. 90 Tablet 3 4 Active honey 100 % psteIndications:Ski n ulcer due to varicose veins (HC) Apply topically to affected area(s). 103 mL 4 Active CPAPIndications:Obs tructive sleep apnea CPAP machine for home use at pressure 14 cmw, full face mask x1/3month with a full face cushion x1/mo 1 Each 11 4 Active sertraline (ZOLOFT) 50 mg tabletIndications:O bsessive-compulsive disorder, unspecified type 1/2 tablet p.o. daily for 6 days, then 1 tablet daily. Start after discontinuing fluvoxamine. 30 Tablet 1 4 Active dulaglutide (TRULICITY) 1.5 mg/0.5 mL subcutaneous penIndications:Diab etes mellitus without complication (HC) Inject 1.5 mg subcutaneous once weekly. 6 mL 1 4 Active esomeprazole (NexIUM) 20 mg capsuleIndications: Chronic GERD Take 1 Capsule (20 mg) by mouth once daily before a meal. 90 Capsule 4 Active torsemide (DEMADEX) 20 mg tabletIndications:C hronic heart failure with preserved ejection fraction (HC) Take 1 Tablet (20 mg) by mouth once daily. 4 Active metFORMIN (GLUCOPHAGE XR) 500 mg Extended-Release tabletIndications:D iabetes mellitus without complication (HC) Take 1 Tablet (500 mg) by mouth two times daily with meals. 180 Tablet 1 4 Active fluvoxaMINE (LUVOX) 100 mg tabletIndications:C ompulsive behaviors,Obsessive -compulsive disorder, unspecified type TAKE ONE AND ONE-HALF TABLETS BY MOUTH TWICE DAILY 270 Tablet 1 4 09/12/20 24 Discontinu ed(*Med ineffectiv e) dulaglutide (TRULICITY) 1.5 mg/0.5 mL subcutaneous penIndications:Diab etes mellitus without complication (HC) Inject 1.5 mg subcutaneous once weekly. 6 mL 1 4 09/12/20 24 Discontinu ed(Reorder (E-cancel not sent)) esomeprazole (NexIUM) 20 mg capsuleIndications: Chronic GERD Take 1 Capsule (20 mg) by mouth once daily before a meal. 90 Capsule 4 09/12/20 24 Discontinu ed(Reorder (E-cancel not sent)) metFORMIN (GLUCOPHAGE XR) 500 mg Extended-Release tabletIndications:D iabetes mellitus without complication (HC) Take 4 Tablets (2,000 mg) by mouth once daily with evening meal. 360 Tablet 4 09/12/20 Discontinu ed(Reorder (E-cancel not sent)) torsemide (DEMADEX) 20 mg tabletIndications:C hronic heart failure with preserved ejection fraction (HC) Take 2 Tablets (40 mg) by mouth once daily. 180 Tablet 3 4 09/12/20 Discontinu ed(*Medica tion adjustment ) Active Problems Problem Noted Date Diagnosed Date Venous stasis ulcer of left calf 09/12/2024 Stage 3a chronic kidney disease 07/20/2023 Lipodermatosclerosis [...] Encounters Date Type Department Care Team Description 09/20/2024 Telephone [facility] [address] [place] [address] Ashutosh Gonzales MD Follow Up 09/12/2024 2:30 PM STAFFING ACCOUNT MANAGER Ancillary Procedure [facility] [address] [place] [address] 09/12/2024 1:15 PM STAFFING ACCOUNT MANAGER Office Visit [facility] [address] [place] [address] Ashutosh Gonzales MD Diabetes (3 month follow up) 09/12/2024 1:00 PM STAFFING ACCOUNT MANAGER Orders Only [address] [address] Lab, [place] Lab 09/12/2024 Telephone [facility] [address] [place] [address] Sandro Smyth, AuD Hearing Aid 09/12/2024 Travel 09/05/2024 Orders Only [address] [address] Ashutosh Gonzales MD Lab (Orders updated) 08/29/2024 3:00 PM CDT Office Visit [address] [address] Sandro Smyth, AuD Hearing Aid 08/29/2024 Travel 08/22/2024 1:00 PM CDT Office Visit [address] [address] Sabino Conway MD Sleep Follow-up (cpap) 08/22/2024 Travel 08/20/2024 Orders Only [facility] Scanner 1 scan: (1-Ord) [facility] ARTERIAL DUPLEX, 08/20/2024 08/15/2024 2:00 PM CDT Nurse/Clinic Staff Only [address] [address] Immunization/Inject ion (VITAMIN B-12 INJECTION ) 08/15/2024 Travel 08/07/2024 8:30 AM CDT Office Visit [address] [address] Sandro Smyth, AuD Hearing Aid 08/07/2024 Travel 07/30/2024 3:20 PM CDT Office Visit [address] [address] Ashutosh Gonzales MD Follow Up (Wart on right foot, wound on left lower leg) 07/17/[address] [address] Ashutosh Gonzales MD schedule referral 07/15/2024 2:00 PM CDT Nurse/Clinic Staff Only [address] [address] Immunization/Inject ion (B-12 inj) 07/15/2024 Travel from Last 3 Months Immunizations Name Administration Dates Next Due AMB Influenza, IIV3 (Age >=3 years)(Flu Clinic Only) 08/25/2010 COVID-19 vaccine (Pfizer-Bio NTech 30mcg/0.3mL) 12YO+ RONNY-SUCROSE THONY MARQUEZ 02/18/2022 COVID-19 vaccine ([employer] NTResQ™ Medical 30mcg/0.3mL) PF, MDV 08/05/2021,01/16/2021,12/26/2020 Influenza A (H1N1), [...] Status Comments Brother Alive Father (Age 50) [place] Mother Alive Social History Tobacco Use Types [...] 2 09/07/2023 Social Connections Answer Date Recorded Do you often feel lonely or isolated from those around you? 0 07/30/2024 Financial Resource Strain Answer Date R ecorded Difficulty of Paying Living Expenses 3 07/30/2024 Difficulty of Paying Living Expenses Not on file 07/30/2024 Food Insecurity Answer Date Recorded Do you worry your food will run out before you are able to buy more? 1 07/30/2024 Transportation Needs Answer Date Record ed Does lack of transportation keep you from medica l appointments? 1 07/30/2024 Does lack of transportation keep you from work, meetings or getting things that you need? 1 07/30/2024 Housing Stability Answer Date Recorded [...] Sign Reading Time Taken Comments Blood Pressure 144/78 09/12/2024 1:53 PM STAFFING ACCOUNT MANAGER Pulse 84 09/12/2024 1:12 PM STAFFING ACCOUNT MANAGER Temperature 36.8 C (98.2 F) 02/04/2022 2:59 PM CDT Respiratory Rate 16 02/04/2022 2:59 PM CDT Oxygen Saturation 91% 09/12/2024 1:12 PM STAFFING ACCOUNT MANAGER Inhaled Oxygen Concentration - - Weight 92.5 kg (204 lb) 09/12/2024 1:12 PM STAFFING ACCOUNT MANAGER Height 159.1 cm (5' 2.64) 09/12/2024 1:12 PM CS T Body Mass Index 36.56 09/12/2024 1:12 PM STAFFING ACCOUNT MANAGER Plan of Treatment Upcoming Encounters Date Type Department Care Team (Late st Contact Info) Description 10/10/2024 1:40 PM STAFFING ACCOUNT MANAGER Ancillary Procedure [facility] [address] [place] [address] 10/17/2024 3:20 PM STAFFING ACCOUNT MANAGER Office Visit [facility] [address] [place] [address] Ashutosh Gonzales MD [address] [facility] [address] 12/09/2024 1:45 PM STAFFING ACCOUNT MANAGER Office Visit [facility] [address] [place] [phone] Yvette Toribio, PhD, LP [address] [place] [address] Health Maintenance Due Date Last Done Comments Influenza for age 65+ 07/07/2024 07/21/2023 , 08/03/2022, 07/24/2021, Additional history exists Medicare Wellness for age 65+ 09/07/2024, 07/28/2022, 03/07/2022, Additional history exists Depression screening for age 12+ 05/28/2025 05/28/2024, 09/08/2023, 09/07/2023, Additional history exists BMI (ht and wt on same day) for age 18+ 09/12/2025 09/12/2024, 09/07/2023, 09/07/2023, Additional history exists Tetanus booster 08/07/2030 08/07/2020, 12/2009, 04/12/2004 Zoster (shingles) series for age 50+ Completed 03/30/2018, 01/04/2018, 01/23/2014, Additional history exists Hepatitis C screening for ag e 18-79 Completed 07/10/2020 Tdap Completed 08/07/2020, 09/07/2010 Pneumococcal series for age 65+ Completed 03/07/2023, 10/08/2014, 02/12/2014, Additional history exists RSV vaccine for adults or Completed 07/21/2023 COVID-19 vaccine series Completed 08/27/20 24, 10/06/2023, 03/06/2023, Additional history exists DEXA/DXA scan for age 65+ Completed 2023, 06/20/2019, 06/17/2011 Procedures Procedure Name Priority Date/Time Associated Diagnosis Comments XR DXA BONE DENSITY 2 SITES AXIAL Routine 09/12/2024 2:37 PM STAFFING ACCOUNT MANAGER Asymptomatic postmenopausal state URINE ALBUMIN TO CREATININE RATIO, RANDOM Routine 09/12/2024 12:04 PM STAFFING ACCOUNT MANAGER Diabetes mellitus without complication (HC) BASIC METABOLIC PANEL Routine 09/12/2024 12:04 PM STAFFING ACCOUNT MANAGER HTN (hypertension) LIPID PANEL W REFLEX MEASURED LDL Routine 09/12/2024 12:04 PM STAFFING ACCOUNT MANAGER Mixed hyperlipidemia HEMOGLOBIN A1C MONITORING (POCT) Routine 09/12/2024 12:03 PM STAFFING ACCOUNT MANAGER Diabetes mellitus without complication (HC) SCAN-ULTRASOUND REPORT 08/20/2024 12:00 AM CDT ANTI HCV Routine 07/10/2020 4:22 PM CDT Need for hepatitis C screening test from Last 3 Months or Most Recently Relevant to Health Maintenance Results * (ABNORMAL) XR DXA BONE DENSITY 2 SITES AXIAL (09/12/2024 2:37 PM STAFFING ACCOUNT MANAGER) Anatomical Region Laterality Modality Spine, HIPS, HIPL, HIPR Other Impressions 09/13/2024 4:12 PM STAFFING ACCOUNT MANAGER Osteopenia. RECOMMENDATIONS: The National Osteoporosis Foundation recommends pharmacologic treatment for patients with T-scores of -2.5 or less, patients with prior history of fragility fractures, or patients with 10-year probability of greater than 3% at hips or greater than 20% of suffering major osteoporotic fractures. Recommend continued optimization of calcium and vitamin D intake through dietary means and/or supplementation and regular exercise. Consider pharmacologic therapy for osteopenia with increased fracture risk. Follow-up bone density reading in 2 years if therapy initiated to assess therapeutic efficacy. Griselda Neri PA-C [facility] 09/13/2024 Narrative 09/13/2024 4:12 PM STAFFING ACCOUNT MANAGER For Patients: Results are automatically released to your [facility] ([employer]) account once available, in compliance with federal regulations. This means that you may see your results before your provider has had a chance to review them. Please allow 2-3 business days for your provider to comment on the results. XR DXA Bone Mineral Density (BMD) EXAM LOCATION: [facility] [address] [employer] [place] [address] PATIENT NAME: Jessica Meek DATE OF : 1945 EXAM DATE: 09/12/2024 REQUESTING PROVIDER: Ashutosh Gonzales MD GENDER AT : female HEIGHT: 5' 2.64 (09/12/2024) WEIGHT: 204 lb (09/12/2024) MENOPAUSAL STATUS: Postmenopausal RACE/ETHNICITY: White RISK FACTORS: Alcohol > 3 drinks/day (prior), Smoking (prior), and White Race CURRENT MEDICATION FOR BONE LOSS: NONE INDICATION: Asymptomatic postmenopausal state COMPARISON DATE(S): 2003 for spine and 2018 for hips DXA scans are compared to prior studies for a patient only when the two (or more) studies were performed on the same scanner. It is not possible to compare data generated on one scanner to data from another because there are not standards in DXA equipment. This applies even if the two scanners are made by the same frame and scrap crusher. PROCEDURE: Dual-energy x-ray absorptiometry performed with routine technique. Reporting is completed in the form of a T-score. The T-score represents the standard deviation from peak bone mass based on young healthy adult. A Z-score is used for diagnosis in premenopausal women, and for men under the age of 50. FINDINGS: RESULT LUMBAR SPINE L1 - L4 BMD: 1.625 g/cm2 T-Score: + 3.5 Z-Score: + 4.4 Change from prior in 2003: Increase 9.6%. RESULTS FEMUR Left femoral neck BMD: 0.782 g/cm2 T-Score: - 1.8 Z-Score: - 0.3 Change from prior in 2019: Decrease 17.2%. Right femoral neck BMD: 0.775 g/cm2 T-Score: - 1.9 Z-Score: - 0.4 Change from prior in 2019: Decrease 8.7%. Left hip BMD: 0.942 g/cm2 T-Score: - 0.5 Z-Score: + 0.8 Change from prior in 2019: Decrease 15.8%. Right hip BMD: 0.884 g/cm2 T-Score: - 1.0 Z-Score: + 0.3 Change from prior in 2019: Decrease 14.8%. WHO criteria: Normal: T-score at or above -1 SD Osteopenia: T-score between -1.1 and -2.4 SD Osteoporosis: T-score at or below -2.5 SD FRAX RISK CALCULATION (USED FOR OSTEOPENIA ONLY): 10-year probability of major osteoporotic fracture: 13.3%. 10-year probability of hip fracture: 3.5%. Ashutosh Gonzales MD DEXA * LIPID PANEL W REFLEX MEASURED LDL (09/12/2024 12:04 PM STAFFING ACCOUNT MANAGER) [facility] Signature CHOLESTEROL, TOTAL 127 <200 mg/dL [facility] HDL CHOLESTEROL 67 > OR = 50 mg/dL [facility] TRIGLYCERIDES 98 <150 mg/dL [facility] LDL-CHOLESTEROL 42 mg/dL (calc) [facility] Comment: Reference range: <100 Desirable range <100 mg/dL for primary prevention; <70 mg/dL for patients with CHD or diabetic patients with > or = 2 CHD risk factors. LDL-C is now calculated using the Nghia-Acosta calculation, which is a validated novel method providing better accuracy than the Friedewald equation in the estimation of LDL-C. Nghia SS et al. GEOVANNA. 2013;310(07): 6969-2707 (http://education.PowerPot/faq/PLD698) CHOL/HDLC RATIO 1.9 <5.0 (calc) [facility] NON HDL CHOLESTEROL 60 <130 mg/dL (calc) [facility] Comment: For patients with diabetes plus 1 major ASCVD risk factor, treating to a non-HDL-C goal of <100 mg/dL (LDL-C of <70 mg/dL) is considered a therapeutic option. Blood BLOOD SPECIMEN / Unknown 09/12/2024 12:04 PM STAFFING ACCOUNT MANAGER 09/12/2024 12:05 PM STAFFING ACCOUNT MANAGER Ashutosh Gonzales MD [facility] [address] [place] [address], [facility] [address] [place] [address] * (ABNORMAL) URINE ALBUMIN TO CREATININE RATIO, RANDOM (09/12/2024 12:04 PM STAFFING ACCOUNT MANAGER) [facility] CREATININE, RANDOM URINE 76 20 - 275 mg/dL [facility] ALBUMIN, URINE 134.9 See Note: mg/dL [facility] Comment: Reference Range: Reference Range Not established Verified by repeat analysis. ALBUMIN/CREATININ E RATIO, RANDOM URINE 1,775(H) <30 mg/g creat [facility] Comment: The ADA defines abnormalities in albumin excretion as follows: Albuminuria Category Result (mg/g creatinine) Normal to Mildly increased <30 Moderately increased 30-299 Severely increased > OR = 300 The ADA recommends that at least two of three specimens collected within a 3-6 month period be abnormal before considering a patient to be within a diagnostic category. Urine URINE SPECIMEN / Unknown 09/12/2024 12:04 PM STAFFING ACCOUNT MANAGER 09/12/2024 12:05 PM STAFFING ACCOUNT MANAGER Ashutosh Gonzales MD URINE [facility] [address] [place] [address], [facility] [address] [place] [phone] * (ABNORMAL) BASIC METABOLIC PANEL (09/12/2024 12:04 PM STAFFING ACCOUNT MANAGER) [facility] GLUCOSE 120(H) 65 - 99 mg/dL [facility] Comment: Fasting reference interval For someone without known diabetes, a glucose value between 100 and 125 mg/dL is consistent with prediabetes and should be confirmed with a follow-up test. UREA NITROGEN (BUN) 26(H) 7 - 25 mg/dL [facility] CREATININE 1.52(H) 0.60 - 1.00 mg/dL [facility] EGFR 35(L) > OR = 60 mL/min/1.7 3m2 [facility] BUN/CREATININE RATIO 17 6 - 22 (calc) [facility] SODIUM 136 135 - 146 mmol/L [facility] POTASSIUM 5.1 3.5 - 5.3 mmol/L [facility] CHLORIDE 96(L) 98 - 110 mmol/L [facility] CARBON DIOXIDE 24 20 - 32 mmol/L [facility] ELECTROLYTE BALANCE 16 7 - 17 mmol/L (calc) [facility] CALCIUM 9.0 8.6 - 10.4 mg/dL [facility] Blood BLOOD SPECIMEN / Unknown 09/12/2024 12:04 PM STAFFING ACCOUNT MANAGER 09/12/2024 12:05 PM STAFFING ACCOUNT MANAGER Ashutosh Gonzales MD [facility] [address] [place] [address], [place] [phone] [facility] [address] [place] [address] * HEMOGLOBIN A1C MONITORING (POCT) (09/12/2024 12:03 PM STAFFING ACCOUNT MANAGER) POC HEMOGLOBIN A1C 5.6 <6.0 % OF TOTAL HGB [facility] Comment: Any point of care results exhibiting inconsistency with the patient's clinical status should be repeated using a different testing method. Blood BLOOD SPECIMEN / Unknown 09/12/2024 12:03 PM STAFFING ACCOUNT MANAGER 09/12/2024 12:04 PM STAFFING ACCOUNT MANAGER Ashutosh Gonzales MD CHEMISTRY [facility] [address] [place] [address], [place] [phone] [facility] [address] [place] [address] * SCAN-ULTRASOUND REPORT (08/20/2024 12:00 AM CDT) Anatomical Region Laterality Modality Other Scanner OTHER * ANTI HCV (07/10/2020 4:22 PM CDT) HEPATITIS C ANTIBODY Non-React manny Non-React manny 07/10/2020 9:24 PM CDT [facility] Comment:Antibodies to HCV no t detected; does not exclude the possibility of exposure to HCV. Blood BLOOD SPECIMEN / Unknown Venipuncture / Unknown 07/10/2020 4:22 PM CDT 07/10/2020 4:24 PM CDT Ashutosh Gonzales MD SEND OUTS [facility] [address] [place] [address], from Last 3 Months or Most Recently Relevant to Health Maintenance Advance Directives Documents on File Type Date Recorded Patient Landfill Attendant Expl anation Healthcare Directive 05/02/2013 12:00 AM A DVANCE DIRECTIVE * Full Code (Latest Code Status on File) Date Activated Date Inactivated Comments 03/06/2014 7:28 PM 03/09/2014 5:42 PM Care Teams Auto Claims Adjuster Relationship Specialty Start Date End Date Ashutosh Gonzales MD [address] [place] [address] PCP - General Family Practice 07/21/17 Qiana Huntley, RN [address] [place] [address] Adjunct Spanish Instructor 12/31/[address] [place] [address] [place] [address] Adjunct Spanish Instructor Campaign Coordinator 12/31/20
== END 2024-10-01 08:06 | disposition home or self-care (01) ==
PROVIDERS: PCP Family Medicine; Visit Provider Nurse Practitioner Family
DX: I87.312 Chronic venous hypertension (idiopathic) with ulcer of left lower extremity (principal); I87.2 Venous insufficiency (chronic) (peripheral); E11.622 Type 2 diabetes mellitus with other skin ulcer; L97.328 Non-pressure chronic ulcer of left ankle with other specified severity; Z79.85 Long-term (current) use of injectable non-insulin antidiabetic drugs
CPT/HCPCS: 15271; Q4121

== ENCOUNTER 2024-10-08 07:59 | Outpatient (CLI) | payer MEDICARE, BC, SELFPAY ==
--- OUTSIDE RECORDS SUMMARY | 2024-10-08 08:01 | XMS_ITS ---
Author Organization [facility] Address [address] [place] [address] Care Team Providers Care Medical Director Of Hospice Name Role Phone Unavailable Unavailable Unavailable Surgery Details Not on file Complications Check Surgery Details section. Procedure Estimated Blood Loss Check Surgery Details section. Procedure Findings Check Surgery Details section. Procedure Specimens Taken Check Surgery Details section.
--- OUTSIDE RECORDS SUMMARY | 2024-10-08 08:01 | XMS_ITS | Referral Summary ---
Author Organization [facility] Address [address] [place] [address] Care Team Providers Care Missile Facilities Repairer Name Role Phone Elsewhere, Pcp Primary Care Provider Unavailabl e Source Comments Patient records contain information from all sites at [facility]. For routine questions regarding patient records, call [phone] during business hours, M-F 8:00 AM - 5:00 PM Central Time. Record requests for emergency care only can be directed to [phone] at any time.[facility] Allergies Active Allergy Reactions Criticality Noted Date [...] on file Legal Sex Female 5:39 PM ASSISTANT FRONT END MANAGER Gender Identity Female 05/06/2021 10:16 AM CDT [...] 15 MMOLL POWERCHART HXeGFR (MDRD) >60 >=60 [id number] POWERCHART eGFR Black/ >60 >=60 [id number] POWERCHART Glucose 92 70 - 139 MGDL POWERCHART Blood 06/28/2017 11:1 8 AM CDT Christie Moffett APRN, C.N.P., R.N. LAB BLOOD ADD- ON Edited Result - Final POWERCHART NA * BI Breast Screening Bilateral (03/31/2017 9:13 AM CDT) Anatomical Region Laterality Modality Breast Bilateral Mammography 03/31/2017 9:13 AM CDT Addenda Addendum by ProviderAmy M.D. on 03/31/2017 9:13 AM CDT RAD^^^OW [place] Mammo Screening w CADD 03/31/2017 09:13:26 Narrative 03/31/2017 11:24 AM CDT Exam: [place] Mammo Screening w/ CADD Indication: screening Comparison: [...] M.D. / ProviderAmy M.D. - 04/27/2017 Exam: [place] Mammo Screening w/ CADD Indication: screening Comparison: [...] [facility] Care Teams Missile Facilities Repairer Relationship Specialty Start Date End Date Elsewhere, Pcp PCP - General Family Medicine 01/30/19
--- OUTSIDE RECORDS SUMMARY | 2024-10-08 08:01 | XMS_ITS | Clinical Summary ---
Author Organization [facility] Address [address] [place] [address] Care Team Providers Care Shank Rander Name Role Phone Elsewhere, Pcp Primary Care Provider Unavailabl e Source Comments Patient records contain information from all sites at [facility]. For routine questions regarding patient records, call [phone] during business hours, M-F 8:00 AM - 5:00 PM Central Time. 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 / ProviderAmy M.D. - 04/27/2017 Exam: [place] Mammo Screening w/ CADD Indication: screening Comparison: [...] approximately 10%. Code: 2 - Benign. Emelia Chavez(oTmy), Scott(Tomy)(M) IMG BI P ROCEDURES Edited Result [...] Recently Relevant to Health Maintenance Insurance MEDICARE [facility] Care Teams Shank Rander Relationship Specialty Start Date End Date Elsewhere, Pcp PCP - General Family Medicine 01/30/19
--- OUTSIDE RECORDS SUMMARY | 2024-10-08 08:01 | XMS_ITS | Clinical Summary ---
Author Organization [facility] Address [place], [place] [address] Care Team Providers Care Assistant Director Of Public Works Name Role Phone Ashutosh Gonzales MD Primary Care Provider Qiana Huntley RN Unavailable [phone] Unavailable Allergies Active Allergy Reactions Criticality Noted Date Comments Cat Dander Other - Describe In Comment Field 02/05/2018 Losartan Other - Describe In Comment Field 07/28/2022 Increased Creatinine and potassium Medications Medication Sig Dispensed Refills Start Date End Date Status Vit A,C,K-Spyj-Ajjrmp (PRESERVISION AREDS) [id number] kdud-as-mbgw cap Take 1 tablet twice daily 90 [...] Date Type Department Care Team Description 09/20/2024 Orders Only [facility] Scanner 1 scan: (1-Ord) [facility], 09/20/2024 09/20/2024 Telephone [facility] [address] [place] [address] Ashutosh Gonzales MD Follow Up 09/12/2024 2:30 PM [facility] Ancillary Procedure [facility] [address] [place] [address] 09/12/2024 1:15 PM [facility]ANG PATH Office Visit [address] [place] [address] Ashutosh Gonzales MD Diabetes (3 month follow up) 09/12/2024 1:00 PM [facility] Orders Only [address] [place] [address] Lab, [place] [facility] 09/12/2024 Telephone [facility] [address] [facility] [place] [address] Sandro Smyth, AuD Hearing Aid 09/12/2024 Travel 09/05/2024 Orders Only [address] [address] Ashutosh Gonzales MD Lab (Orders updated) 08/29/2024 3:00 PM CDT Office Visit [address] [address] Sandro Smyth, AuD Hearing Aid 08/29/2024 Travel 08/22/2024 1:00 PM CDT Office Visit [address] [address] Sabino Conway MD Sleep Follow-up (cpap) 08/22/2024 Travel 08/20/2024 Orders Only [facility] Scanner 1 scan: (1-Ord) [facility], 08/20/2024 08/15/2024 2:00 PM CDT Nurse/Clinic Staff Only [address] [address] Immunization/Inject ion (VITAMIN B-12 INJECTION ) 08/15/2024 Travel 08/07/2024 8:30 AM CDT Office Visit [address] [address] Sandro Smyth, AuD Hearing Aid 08/07/2024 Travel 07/30/2024 3:20 PM CDT Office Visit [address] [address] Ashutosh Gonzales MD Follow Up (Wart on right foot, wound on left lower leg) 07/17/[address] [address] Ashutosh Gonzales MD schedule referral 07/15/2024 2:00 PM CDT Nurse/Clinic Staff Only [address] [address] Immunization/Inject ion (B-12 inj) 07/15/2024 Travel from Last 3 Months Immunizations Name Administration Dates Next Due AMB Influenza, IIV3 (Age >=3 years)(Flu Clinic Only) 08/25/2010 COVID-19 vaccine ([employer]-Bio NTech 30mcg/0.3mL) 12YO+ RONNY-SUCROSE PF, MDV 02/18/2022 COVID-19 vaccine (Pfizer-Bio NTech 30mcg/0.3mL) PF, MDV 08/05/2021,01/16/2021,12/26/2020 Influenza A [...] Status Comments Brother Alive Father (Age 50) [place] Mother Alive Social History Tobacco Use Types [...] Comments Blood Pressure 144/78 09/12/2024 1:53 PM [facility] Pulse 84 09/12/2024 1:12 PM [facility] Temperature 36.8 C (98.2 F) 02/04/2022 2:59 PM CDT Respiratory Rate 16 02/04/2022 2:59 PM CDT Oxygen Saturation 91% 09/12/2024 1:12 PM [facility] PATH Inhaled Oxygen Concentration - - Weight 92.5 kg (204 lb) 09/12/2024 1:12 PM [facility] Height 159.1 cm (5' 2.64) 09/12/2024 1:12 PM CS T Body Mass Index 36.56 09/12/2024 1:12 PM [facility]ANG PATH Plan of Treatment Upcoming Encounters Date Type Department Care Team (Late st Contact Info) Description 10/10/2024 1:40 PM [facility] PATH Ancillary Procedure [facility] [address] [place] [address] 10/17/2024 3:20 PM SPE[facility]CH [facility]ANG PATH Office Visit [facility] [address] [facility] [place] [address] Ashutosh Gonzales MD [address] [facility] [place] [address] 12/09/2024 1:45 PM SPEECH LANG PATH Office Visit [facility] [address] [place] [id number] Yvette Toribio, PhD, LP [address] [facility] [place] [address] Health Maintenance Due Date Last Done Comments Influenza for age 65+ 07/07/2024 07/21/2023 , 08/03/2022, 07/24/2021, Additional history exists Medicare Wellness for age 65+ 09/07/2024, 07/28/2022, 03/07/2022, Additional history exists Depression screening for age 12+ 05/28/2025 05/28/2024, 09/08/2023, 09/07/2023, Additional history exists BMI (ht and wt on same day) for age 18+ 09/12/2025 09/12/2024, 09/07/2023, 09/07/2023, Additional history exists Tetanus booster 08/07/2030 08/07/2020, 1112/2009, 04/12/2004 Zoster (shingles) series for age 50+ [...] Procedure Name Priority Date/Time Associated Diagnosis Comments SCAN-EYE EXAM 09/20/2024 12:00 AM [facility] PATH XR DXA BONE DENSITY 2 SITES AXIAL Routine 09/12/2024 2:37 PM [facility] PATH Asymptomatic postmenopausal state URINE ALBUMIN TO CREATININE RATIO, RANDOM Routine 09/12/2024 12:04 PM [facility] PATH Diabetes mellitus without complication (HC) BASIC METABOLIC PANEL Routine 09/12/2024 12:04 PM [facility] PATH HTN (hypertension) LIPID PANEL W REFLEX MEASURED LDL Routine 09/12/2024 12:04 PM [facility] PATH Mixed hyperlipidemia HEMOGLOBIN A1C MONITORING (POCT) Routine 09/12/2024 12:03 PM [facility] PATH Diabetes mellitus without complication (HC) SCAN-ULTRASOUND REPORT 08/20/2024 12:00 AM CDT ANTI HCV Routine 07/10/2020 4:22 PM CDT Need for hepatitis C screening test from Last 3 Months or Most Recently Relevant to Health Maintenance Results * SCAN-EYE EXAM (09/20/2024 12:00 AM SPEECH LANG PATH) Scanner OTHER * (ABNORMAL) XR DXA BONE DENSITY 2 SITES AXIAL (09/12/2024 2:37 PM SPEECH LANG PATH) Anatomical Region Laterality Modality Spine, HIPS, HIPL, HIPR Other Impressions 09/13/2024 4:12 PM SPEECH LANG PATH Osteopenia. RECOMMENDATIONS: The National Osteoporosis Foundation recommends [...] to assess therapeutic efficacy. Griselda Neri PA-C [facility] 09/13/2024 Narrative 09/13/2024 4:12 PM SPEECH LANG PATH For Patients: Results are automatically released to your [email or web address] [facility] ([employer]) account once available, in compliance with federal regulations. This means that you may see your results before your provider has had a chance to review them. Please allow 2-3 business days for your provider to comment on the results. XR DXA Bone Mineral Density (BMD) EXAM LOCATION: [address] [address] PATIENT NAME: Jessica Meek DATE OF : [...] two scanners are made by the same screw machine repairer. PROCEDURE: Dual-energy x-ray absorptiometry performed with routine [...] W REFLEX MEASURED LDL (09/12/2024 12:04 PM SPEECH LANG PATH) [facility] CHOLESTEROL, TOTAL 127 <200 mg/dL [facility] HDL CHOLESTEROL 67 > OR = 50 mg/dL [facility] TRIGLYCERIDES 98 <150 mg/dL [facility] LDL-CHOLESTEROL 42 mg/dL (calc) [facility] Comment: Reference range: <100 Desirable range <100 mg/dL for primary prevention; <70 mg/dL for patients with CHD or diabetic patients with > or = 2 CHD risk factors. LDL-C is now calculated using the Nghia-Dvae calculation, which is a validated novel method providing better accuracy than the Friedewald equation in the estimation of LDL-C. Nghia PARRA et al. GEOVANNA. 2013;310(19): 3704-8634 (http://education.IdeaForest.Arvirago/faq/KCY439) CHOL/HDLC RATIO 1.9 <5.0 (calc) [facility] NON HDL CHOLESTEROL 60 <130 mg/dL (calc) [facility] Comment: For patients with diabetes plus 1 major ASCVD risk factor, treating to a non-HDL-C goal of <100 mg/dL (LDL-C of <70 mg/dL) is considered a therapeutic option. Blood BLOOD SPECIMEN / Unknown 09/12/2024 12:04 PM SPEECH LANG PATH 09/12/2024 12:05 PM [facility]ANG PATH Ashutosh Gonzales MD CHEMISTRY Performing Organization Address [facility] Co de Phone Number [employer] [facility] [address] [place] [address], [place] [phone] [facility] [address] [place] [address] * (ABNORMAL) URINE ALBUMIN TO CREATININE RATIO, RANDOM (09/12/2024 12:04 PM SPEECH LANG PATH) CREATININE, RANDOM URINE 76 20 - 275 mg/dL [facility] kanwal Martinez ALBUMIN, URINE 134.9 See Note: mg/dL [facility] Martinez Comment: Reference Range: Reference Range Not established Verified by repeat analysis. ALBUMIN/CREATININ E RATIO, RANDOM URINE 1,775(H) <30 mg/g creat [facility] Comment: The ADA defines abnormalities in albumin [...] URINE SPECIMEN / Unknown 09/12/2024 12:04 PM [facility] PATH 09/12/2024 12:05 PM [facility] PATH Ashutosh Gonzales MD URINE Performing Organization Address [facility]/ZIP Co de Phone Number [employer] [facility] [address] [place] [address], [place] [phone] [facility] [address] [place] [address] * (ABNORMAL) BASIC METABOLIC PANEL (09/12/2024 12:04 PM SPEECH LANG PATH) GLUCOSE 120(H) 65 - 99 mg/dL [facility] kan[facility] Martinez Comment: Fasting reference interval For someone without known diabetes, a glucose value between 100 and 125 mg/dL is consistent with prediabetes and should be confirmed with a follow-up test. UREA NITROGEN (BUN) 26(H) 7 - 25 mg/dL [facility] CREATININE 1.52(H) 0.60 - 1.00 mg/dL [facility] EGFR 35(L) > OR = 60 mL/min/1.7 3m2 [facility] BUN/CREATININE RATIO 17 6 - 22 [...] BLOOD SPECIMEN / Unknown 09/12/2024 12:04 PM [facility] LANG PATH 09/12/2024 12:05 PM [facility]CH LANG PATH Ashutosh Gonzales MD CHEMISTRY [facility] [employer] [facility] [address] [place] [address], [facility] [address] [place] [address] * HEMOGLOBIN A1C MONITORING (POCT) (09/12/2024 12:03 PM SPEECH LANG PATH) POC HEMOGLOBIN A1C 5.6 <6.0 % OF TOTAL HGB [facility] Comment: Any point of care results exhibiting inconsistency with the patient's clinical status should be repeated using a different testing method. Blood BLOOD SPECIMEN / Unknown 09/12/2024 12:03 PM SPEECH LANG PATH 09/12/2024 12:04 PM SPE[facility]CH LANG PATH Ashutosh Gonzales MD CHEMISTRY [facility] [address] [place] [address], [facility] [address] [place] [address] * SCAN-ULTRASOUND REPORT (08/20/2024 12:00 AM CDT) Anatomical Region Laterality Modality Other Scanner OTHER * ANTI HCV (07/10/2020 4:22 PM CDT) HEPATITIS C ANTIBODY Non-React manny Non-React manny 07/10/2020 9:24 PM CDT [facility] Comment:Antibodies to HCV no t detected; does not exclude the possibility of exposure to HCV. Blood BLOOD SPECIMEN / Unknown Venipuncture / Unknown 07/10/2020 4:22 PM CDT 07/10/2020 4:24 PM CDT Ashutosh Gonzales MD SEND OUTS [facility] 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
== END 2024-10-08 08:00 | disposition home or self-care (01) ==
LOC: WOUND 07:59
PROVIDERS: PCP Family Medicine; Visit Provider Nurse Practitioner Family
DX: I87.312 Chronic venous hypertension (idiopathic) with ulcer of left lower extremity (principal); I87.2 Venous insufficiency (chronic) (peripheral); L97.322 Non-pressure chronic ulcer of left ankle with fat layer exposed
CPT/HCPCS: 97597

== ENCOUNTER 2024-10-15 07:55 | Outpatient (CLI) | payer MEDICARE, BC, SELFPAY | END 2024-10-15 07:56 | disposition home or self-care (01) | PROVIDERS: PCP Family Medicine; Visit Provider Nurse Practitioner Family | DX: I87.312 Chronic venous hypertension (idiopathic) with ulcer of left lower extremity (principal); I87.2 Venous insufficiency (chronic) (peripheral); L97.328 Non-pressure chronic ulcer of left ankle with other specified severity | CPT/HCPCS: 15271; Q4121 ==

== ENCOUNTER 2024-10-22 07:49 | Outpatient (CLI) | payer MEDICARE, BC, SELFPAY | END 2024-10-22 07:50 | disposition home or self-care (01) | LOC: WOUND 07:49 | PROVIDERS: PCP Family Medicine; Visit Provider Nurse Practitioner Family | DX: I87.312 Chronic venous hypertension (idiopathic) with ulcer of left lower extremity (principal); I87.2 Venous insufficiency (chronic) (peripheral); E11.622 Type 2 diabetes mellitus with other skin ulcer; L97.328 Non-pressure chronic ulcer of left ankle with other specified severity | CPT/HCPCS: 97597 ==

== ENCOUNTER 2024-11-04 07:57 | Outpatient (CLI) | payer MEDICARE, BC, SELFPAY | END 2024-11-04 07:58 | disposition home or self-care (01) | LOC: WOUND 07:57 | PROVIDERS: PCP Family Medicine; Visit Provider Physician Assistant Surgical | DX: I87.312 Chronic venous hypertension (idiopathic) with ulcer of left lower extremity (principal); I87.2 Venous insufficiency (chronic) (peripheral); E11.22 Type 2 diabetes mellitus with diabetic chronic kidney disease; L97.322 Non-pressure chronic ulcer of left ankle with fat layer exposed; Z79.84 Long term (current) use of oral hypoglycemic drugs | CPT/HCPCS: 15271; Q4121 ==

== ENCOUNTER 2024-11-12 07:53 | Outpatient (CLI) | payer MEDICARE, BC, SELFPAY | END 2024-11-12 07:54 | disposition home or self-care (01) | LOC: WOUND 07:54 | PROVIDERS: PCP Family Medicine; Visit Provider Nurse Practitioner Family | DX: I87.312 Chronic venous hypertension (idiopathic) with ulcer of left lower extremity (principal); I87.2 Venous insufficiency (chronic) (peripheral); L97.328 Non-pressure chronic ulcer of left ankle with other specified severity; S91.321A Laceration with foreign body, right foot, initial encounter; W20.8XXA Other cause of strike by thrown, projected or falling object, initial encounter | CPT/HCPCS: 97597; G0463 ==

== ENCOUNTER 2024-11-19 07:54 | Outpatient (CLI) | payer MEDICARE, BC, SELFPAY | END 2024-11-19 07:55 | disposition home or self-care (01) | LOC: WOUND 07:56 | PROVIDERS: PCP Family Medicine; Visit Provider Nurse Practitioner Family | DX: I87.312 Chronic venous hypertension (idiopathic) with ulcer of left lower extremity (principal); I87.2 Venous insufficiency (chronic) (peripheral); E11.622 Type 2 diabetes mellitus with other skin ulcer; L97.328 Non-pressure chronic ulcer of left ankle with other specified severity; L03.115 Cellulitis of right lower limb; S91.311A Laceration without foreign body, right foot, initial encounter; Z79.84 Long term (current) use of oral hypoglycemic drugs; W20.8XXA Other cause of strike by thrown, projected or falling object, initial encounter | CPT/HCPCS: 11042; 97597 ==

== ENCOUNTER 2024-11-26 08:00 | Outpatient (CLI) | payer MEDICARE, BC, SELFPAY | END 2024-11-26 08:01 | disposition home or self-care (01) | LOC: WOUND 08:00 | PROVIDERS: PCP Family Medicine; Visit Provider Nurse Practitioner Family | DX: I87.312 Chronic venous hypertension (idiopathic) with ulcer of left lower extremity (principal); I87.2 Venous insufficiency (chronic) (peripheral); E11.622 Type 2 diabetes mellitus with other skin ulcer; L97.322 Non-pressure chronic ulcer of left ankle with fat layer exposed; S91.311A Laceration without foreign body, right foot, initial encounter; Z79.84 Long term (current) use of oral hypoglycemic drugs | CPT/HCPCS: G0463 ==

== ENCOUNTER 2024-12-03 07:58 | Outpatient (CLI) | payer MEDICARE, BC, SELFPAY | END 2024-12-03 07:59 | disposition home or self-care (01) | PROVIDERS: PCP Family Medicine; Visit Provider Nurse Practitioner Family | DX: I87.312 Chronic venous hypertension (idiopathic) with ulcer of left lower extremity (principal); I87.2 Venous insufficiency (chronic) (peripheral); E11.622 Type 2 diabetes mellitus with other skin ulcer; L97.328 Non-pressure chronic ulcer of left ankle with other specified severity; Z79.84 Long term (current) use of oral hypoglycemic drugs; I07.1 Rheumatic tricuspid insufficiency; I34.0 Nonrheumatic mitral (valve) insufficiency; I50.9 Heart failure, unspecified | CPT/HCPCS: 15271; Q4201 ==

== ENCOUNTER 2024-12-03 10:18 | Emergency (ER) | payer MEDICARE, BC, SELFPAY ==
[2024-12-03] VITALS (32 sets, daily range): BP systolic 133–161; BP diastolic 65–145; PULSE 74–88; RESP 16–22; TEMP 36.5; O2SAT 74–100; BMI 35.5
--- NOTE | 2024-12-03 13:27 | ED.GENADULT ---
HPI - General Adult General Time Seen by Provider: 13:27 Date Seen: 12/03/24 Chief complaint: Unspecified Complaint, Adult Stated complaint: Low O2, irregular EKG Time Seen by Provider: 12/03/24 13:25 Source: patient and RN notes reviewed Mode of arrival: ambulatory Limitations: no limitations History of Present Illness HPI narrative: This 79-year-old female is accompanied by her daughter from clinic where she was having an echo today for further evaluation. Patient has been noted to be having 40 or so apneic events tonight. She had quit wearing her CPAP for while, her daughter talked to her about that about 3 or so weeks ago. She had been noted to be sleeping more during the day despite sleeping at night. The apneic events were documented on her CPAP. They followed up with her sleep provider, echo was obtained for that as they had concern about her heart. In clinic today her oxygenation was 90%. She does have a history of congestive heart failure, have noted that her legs are more swollen. She is [facility], has a chronic right lower extremity wound that is going to be getting grafting per report. They noted that her leg size was 2 cm larger recently. She has felt a little more bloated. No abdominal pain per se though. She has had increased dyspnea on exertion which her daughter feels that she is just maybe gotten used to having. No fevers or chills. 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 She is aware of her echo report, did discuss the regional wall motion abnormalities that are new, worsening valve issues. She and her daughter both agree that they would like further evaluation and management if cardiology felt appropriate. She would certainly proceed with angiography/angiogram and consider further invasive cardiac manipulations/surgeries. Her echo today with final impression is normal left ventricular size, mildly increased wall thickness, moderately reduced global systolic function, calculated EF of 39%. The inferior wall is hypokinetic. The mitral valve is normal, severe mitral regurgitation. Increased left atrial pressure. Right ventricular cavity size is moderately enlarged, global systolic RV function is moderately reduced. Right ventricular volume overload. Severe tricuspid regurgitation. Abnormal findings were relayed to the patient and she was offered to ED visit if symptomatic. The ordering a primary providers were informed. In comparison to her last echo from 2020, the left ventricular function has decreased, mitral regurgitation has increased, tricuspid regurgitation has increased, right ventricular systolic function has decreased, RV size has increased. Patient has been noted to be dropping into the 80s while awake with good waveform, subsequent oxygen was applied. She did note some left-sided chest discomfort while laying here, maybe has never noted it before. Did review with them that we will check troponins. Related Data Home Medications ?Medication ?Instructions ?Recorded ?Confirmed amlodipine 2.5 mg tablet 2.5 mg PO DAILY 08/14/22 12/03/24 atorvastatin 40 mg tablet 40 mg PO DAILY 08/14/22 12/03/24 blood sugar diagnostic (OneTouch 08/14/22 03/21/24 Verio test strips) dulaglutide 1.5 mg/0.5 mL 1.5 mg subcut .weekly 08/14/22 12/03/24 subcutaneous pen injector (Trulicity) metformin 500 mg tablet,extended 2,000 mg PO DAILY 08/14/22 12/03/24 release 24 hr metoprolol succinate 50 mg 50 mg PO DAILY 08/14/22 12/03/24 tablet,extended release 24 hr torsemide 20 mg tablet 40 mg PO DAILY 08/14/22 12/03/24 magnesium aspart,citrate,oxide 400 mg PO DAILY 08/01/23 12/03/24 vitamins A,C,C-[id number] 2,148 1 tab PO BID 08/01/23 12/03/24 mcg-113 mg-45 mg-17.4 mg tablet (Eye Multivitamin) empagliflozin 10 mg tablet 10 mg PO QAM 03/21/24 12/03/24 (Jardiance) esomeprazole magnesium 20 mg 20 mg PO DAILY 08/09/24 12/03/24 capsule,delayed release sertraline 50 mg tablet (Zoloft) 50 mg PO DAILY 12/03/24 12/03/24 Allergies Allergy/AdvReac Type Severity Reaction Status Date / Time losartan Allergy Verified 12/03/24 10:52 Review of Systems Status of ROS: Reports: 6 or more systems reviewed and unremarkable except as noted in History and below [facility] Medical History Lumbar spondylosis ?M47.816 - Spondylosis without myelopathy or radiculopathy, lumbar region (ICD-10) Essential (primary) hypertension ?I10 - Essential (primary) hypertension (ICD-10) Vitamin B deficiency, unspecified ?E53.9 - Vitamin B deficiency, unspecified (ICD-10) Anxiety disorder, unspecified ?F41.9 - Anxiety disorder, unspecified (ICD-10) Syncope and collapse ?R55 - Syncope and collapse (ICD-10) Hyponatremia ?E87.1 - Hypo-osmolality and hyponatremia (ICD-10) Gait instability ?R26.81 - Unsteadiness on feet (ICD-10) Vertigo ?R42 - Dizziness and giddiness (ICD-10) Obsessive-compulsive disorder, unspecified ?F42.9 - Obsessive-compulsive disorder, unspecified (ICD-10) Adenomatous colon polyp ?D12.6 - Benign neoplasm of colon, unspecified (ICD-10) Hoarding disorder ?F42.3 - Hoarding disorder (ICD-10) Sleep apnea, unspecified ?G47.30 - Sleep apnea, unspecified (ICD-10) Iron deficiency anemia, unspecified ?D50.9 - Iron deficiency anemia, unspecified (ICD-10) Heart failure, unspecified ?I50.9 - Heart failure, unspecified (ICD-10) Varicose veins of right lower extremity with inflammation ?I83.11 - Varicose veins of right lower extremity with inflammation (ICD-10) Type 2 diabetes mellitus without complications ?E11.9 - Type 2 diabetes mellitus without complications (ICD-10) Unspecified mood [affective] disorder ?F39 - Unspecified mood [affective] disorder (ICD-10) Surgical History History of arthroscopy of left shoulder (08/08/14) ?Z98.890 - Other specified postprocedural states (ICD-10) History of total abdominal hysterectomy ?Z90.710 - Acquired absence of both cervix and uterus (ICD-10) Social History Smoking Status: Former smoker What tobacco products do you use: cigarettes Years smoked: 0.5 Smoking quit date/years: >15 years ago Do you use any of these nicotine containing products: None Second hand tobacco smoke exposure: No How often do you have a drink containing alcohol: monthly or less AUDIT-C Alcohol total score: 1 Non-prescribed substance use: denies use Caffeine: Yes Exam Const: Vital Signs, click to edit/add: Vital Signs - 24 hr 12/03/24 10:46 12/03/24 13:01 12/03/24 13:02 Temperature 97.7 F Pulse Rate 78 78 Pulse Rate [Right Pulse Oximeter] 77 Respiratory Rate 18 Blood Pressure 144/84 H Blood Pressure [Le ft Upper Arm] 140/65 H Pulse Oximetry 95 94 89 Oxygen Delivery Me thod Room Air Oxygen Flow Rate 12/03/24 13:15 12/03/24 13:29 12/03/24 13:30 Temperature Pulse Rate 78 81 Pulse Rate [Right Pulse Oximeter] Respiratory Rate Blood Pressure Blood Pressure [Le ft Upper Arm] Pulse Oximetry 85 L 95 96 Oxygen Delivery Me thod Room Air Nasal Cannula Oxygen Flow Rate 1 12/03/24 13:31 12/03/24 13:36 12/03/24 13:36 Temperature Pulse Rate 80 Pulse Rate [Right Pulse Oximeter] Respiratory Rate Blood Pressure 149/76 H Blood Pressure [Le ft Upper Arm] Pulse Oximetry 95 88 88 Oxygen Delivery Me thod Room Air Oxygen Flow Rate 12/03/24 13:45 12/03/24 13:48 12/03/24 14:01 Temperature Pulse Rate 80 79 Pulse Rate [Right Pulse Oximeter] Respiratory Rate 20 Blood Pressure 133/74 Blood Pressure [Le ft Upper Arm] Pulse Oximetry 95 95 96 Oxygen Delivery Me thod Nasal Cannula Nasal Cannula Oxygen Flow Rate 1 1 12/03/24 14:02 12/03/24 14:21 12/03/24 14:30 Temperature Pulse Rate 80 88 81 Pulse Rate [Right Pulse Oximeter] Respiratory Rate Blood Pressure Blood Pressure [Le ft Upper Arm] Pulse Oximetry 94 86 L 95 Oxygen Delivery Me thod Oxygen Flow Rate 12/03/24 14:31 12/03/24 14:45 12/03/24 15:00 Temperature Pulse Rate 80 80 74 Pulse Rate [Right Pulse Oximeter] Respiratory Rate Blood Pressure 148/95 H Blood Pressure [Le ft Upper Arm] Pulse Oximetry 96 96 76 L Oxygen Delivery Me thod Oxygen Flow Rate 12/03/24 15:01 12/03/24 15:15 12/03/24 15:30 Temperature Pulse Rate 79 81 78 Pulse Rate [Right Pulse Oximeter] Respiratory Rate Blood Pressure 145/81 H Blood Pressure [Le ft Upper Arm] Pulse Oximetry 98 98 96 Oxygen Delivery Me thod Oxygen Flow Rate 12/03/24 15:32 12/03/24 15:33 12/03/24 15:45 Temperature Pulse Rate 78 80 75 Pulse Rate [Right Pulse Oximeter] Respiratory Rate Blood Pressure 161/145 H Blood Pressure [Le ft Upper Arm] Pulse Oximetry 98 96 98 Oxygen Delivery Me thod Oxygen Flow Rate 12/03/24 16:00 12/03/24 16:01 12/03/24 16:15 Temperature Pulse Rate 78 80 79 Pulse Rate [Right Pulse Oximeter] Respiratory Rate 22 Blood Pressure 142/82 H Blood Pressure [Le ft Upper Arm] Pulse Oximetry 74 L 100 98 Oxygen Delivery Me thod Nasal Cannula Oxygen Flow Rate 1 12/03/24 16:30 12/03/24 17:00 12/03/24 17:04 Temperature Pulse Rate 81 85 84 Pulse Rate [Right Pulse Oximeter] Respiratory Rate Blood Pressure Blood Pressure [Le ft Upper Arm] Pulse Oximetry 88 86 L 95 Oxygen Delivery Me thod Oxygen Flow Rate 12/03/24 17:31 12/03/24 17:36 12/03/24 17:52 Temperature Pulse Rate 84 86 Pulse Rate [Right Pulse Oximeter] Respiratory Rate 16 Blood Pressure 148/99 H 141/76 H Blood Pressure [Le ft Upper Arm] Pulse Oximetry 95 96 Oxygen Delivery Me thod Nasal Cannula Oxygen Flow Rate 1 This 79 year old female is alert, interactive, no apparent distress. She is observed to ambulate to the bathroom with a cane, slow but is able to do it. When examining, she is in bed, sitting up, breathing easily on room air. Pupils equal round reactive, sclera clear, symmetrical facial function. Neck is supple, no adenopathy, no masses. Lungs do have some bibasilar crackles but no wheezing, no tachypnea. CV regular rate and rhythm, do feel she has again Alupent, normal S1-S2. I do feel that I can hear a soft diastolic murmur. Abdomen is soft, nontender, nondistended, no organomegaly. She has about 2 to 3+ pitting edema of her lower extremities. No secondary changes of cellulitis noted. Documenting provider has reviewed patient's vital signs: yes Course Course ED Course: Patient will get a portable chest x-ray. She will be on cardiac monitoring and pulse oximetry. She is developed sudden chest discomfort now, will obtain a troponin and follow this if she is here. It is likely that she may need transfer given her new echo and her current clinical status which seems to be congestive heart failure that is decompensated. Will get full complement of labs including troponin and proBNP. Does not sound like she has acute infectious etiology but will see what her tests and chest x-ray show. Can consider advanced imaging if there is any concern or other suggestive changes on her chest imaging. They understand that I will likely be talking to Cardiology when I have some of her results back. Consultations Consultation #1: Spoke with cardiology Dr. Tomas. He agrees with the echo findings that the patient will probably need to proceed with right and left heart catheterization. She is in congestive heart failure. Will initiate diuresis, will start with 60 mg IV Lasix. There is a 4-8 hour bed delay at this time. Time: 15:06 Vital Signs Vital signs: Initial Vital Signs Temperature 97.7 F 12/03/24 10:46 Temperature Source Temporal Artery Scan 12/03/24 10:46 Pulse Rate 77 12/03/24 10:46 Pulse Rhythm Regular 12/03/24 10:46 Pulse Strength 3+ Normal 12/03/24 10:46 Respiratory Rate 18 12/03/24 10:46 Blood Pressure 140/65 H 12/03/24 10:46 Blood Pressure Mean 90 12/03/24 10:46 Blood Pressure Position Sitting 12/03/24 10:46 Pulse Oximetry 95 12/03/24 10:46 Oxygen Delivery Method Room Air 12/03/24 10:46 Vital Signs Temperature 97.7 F 12/03/24 10:46 Pulse Rate 77 12/03/24 10:46 Respiratory Rate 18 12/03/24 10:46 Blood Pressure 140/65 H 12/03/24 10:46 Pulse Oximetry 95 12/03/24 10:46 Oxygen Delivery Method Room Air 12/03/24 10:46 Temperature 97.7 F 12/03/24 10:46 Pulse Rate 86 12/03/24 17:52 Respiratory Rate 16 12/03/24 17:31 Blood Pressure 141/76 H 12/03/24 17:36 Pulse Oximetry 96 12/03/24 17:52 Oxygen Delivery Method Nasal Cannula 12/03/24 17:31 Oxygen Flow Rate 1 12/03/24 17:31 Medications Administered Medications: Discontinued Medications Generic Name Dose Route Start Last Admin Trade Name Ruben PRN Reason Stop Dose Admin Furosemide 60 mg 12/03/24 15:08 12/03/24 15:46 Furosemide 10 Mg/Ml Inj IVP 12/03/24 15:09 60 mg ONCE ONE Administration Medical Decision Making Lab Data Lab results reviewed: Yes I reviewed the patient's lab results Labs: Lab Results 12/03/24 Range/Units 13:50 WBC 5.41 (4.50-11.00) K/uL RBC 4.33 (4.00-5.20) m/uL Hgb 11.7 L (12.0-16.0) gm/dL Hct 38.6 (33.0-51.0) % MCV 89 (80-100) fL MCH 27 (26-34) pg MCHC 30 L (32-36) gm/dL RDW Coeff of Dez 15.3 (11.5-15.5) % Plt Count 194 (140-440) K/uL Neut % (Auto) 74.3 H (42.0-72.0) % Lymph % (Auto) 11.3 L (20-44) % [place] % (Auto) 11.6 H (0.0-11.0) % Eos % (Auto) 2.0 (0.0-7.0) % Baso % (Auto) 0.4 (0.0-3.0) % Neut # (Auto) 4.00 (1.7-7.0) K/uL Lymph # (Auto) 0.60 L (0.90-2.90) K/uL [place] # (Auto) 0.60 (0.00-0.90) K/UL Eos # (Auto) 0.11 (0.00-0.50) K/uL Baso # (Auto) 0.02 (0.00-0.30) K/uL Abs Immat Gran (auto) 0.02 (0.00-0.30) K/uL Imm/Tot Granulo (auto) 0.4 % INR 1.12 H (0.91-1.10) APTT 28 (23-33) Seconds D-Dimer Quant (PE/DVT) 0.39 (0.00-0.50) ug/ml VBG pH 7.352 (7.32-7.43) VBG pCO2 50 (40-50) mmHG VBG pO2 33.4 (25-47) mmHG VBG HCO3 28 (21-28) mmol/L Sodium 139 (135-149) mmol/L Potassium 4.4 (3.6-5.1) mmol/L Chloride 105 (96-114) mmol/L Carbon Dioxide 26 (20-32) mmol/L Anion Gap 8 (7-15) mEq/L BUN 26 (7-30) mg/dL Creatinine 1.3 (0.5-1.5) mg/dL Estimated Creat Clear 27.75 Estimated GFR 42 ml/min Glucose 95 (60-115) mg/dL Calcium 8.8 (8.4-10.6) mg/dL Magnesium 2.3 (1.5-2.6) mg/dL Total Bilirubin 0.6 (0.1-1.5) mg/dL AST 26 (12-35) U/L ALT 23 (4-35) U/L Alkaline Phosphatase 80 (40-150) U/L Troponin I 0.02 (0.01-0.04) ng/mL C-Reactive Protein < 0.5 L (0.5-1.0) mg/dL NT-Pro-B Natriuret Pep 00582 pg/mL Total Protein 6.4 (6.0-8.3) g/dL Albumin 4.0 (3.3-5.0) g/dL TSH 1.860 (0.270-4.200) uIU/mL SARS-CoV-2 (PCR) Negative SARS-CoV-2 (Negative) Influenza Type A (PCR) Negative PCR FLU A (Negative) Influenza Type B (PCR) Negative PCR FLU B (Negative) RSV (PCR) Negative PCR RSV (Negative) Imaging Data Chest x-ray: Attestation: I have reviewed the pertinent imaging results. Radiologist's impression: Patient: FRANCES HAGER Facility:?[facility] Patient ID:?[id number] Site Patient ID:?[id number]. Site :?[id number] Study:?XRay-Chest 1V PORTABLE-12/03/2024 2:21:08 PM Ordering Physician:?Paulo Charo Final Report: INDICATION: jay, hx chf, cp. TECHNIQUE: Chest 1 view. COMPARISON: None. FINDINGS: Cardiovasculature and mediastinum: Prominent cardiomediastinal silhouette. Lungs and pleural spaces: Bibasilar interstitial prominence. No dense consolidation. No evident pleural effusion. No pneumothorax. Bones and soft tissues: No acute findings. Left humeral head suture anchor. IMPRESSION: Prominent cardiomediastinal silhouette with bibasilar interstitial prominence, which may reflect cardiomegaly mild cardiogenic edema. Dictated by Julio Fletcher MD @ 12/03/2024 2:35:50 PM (Electronic Signature) ECG Data Attestation: I personally reviewed and interpreted this ECG as follows: (Sinus rhythm, both EKGs, 1 at 74 beats per minute, 1 at 78 beats per minute. Right bundle branch block, looks to be intra conduction delay elsewhere. Inferolateral ischemic change noted.) Prior ECG tracings: available for review (Compared to EKG in 2021, inferior changes more prominent and now having lateral precordial lead changes.) Discharge Plan Discharge Clinical Impression: Severe mitral regurgitation, Severe tricuspid regurgitation Congestive heart failure Qualifiers: Heart failure type: unspecified Heart failure chronicity: acute on chronic Qualified Code(s): I50.9 - Heart failure, unspecified Patient Disposition: [facility] Prescriptions: No Action Jardiance 10 mg tablet 10 mg PO QAM esomeprazole magnesium 20 mg capsule,delayed release(DR/EC) 20 mg PO DAILY Eye Multivitamin 2,148 mcg-113 mg-45 mg-17.4mg tablet 1 tab PO BID Rx Instructions: administer with AM and PM meals magnesium aspart,citrate,oxide 400 mg magnesium capsule 400 mg PO DAILY atorvastatin 40 mg tablet 40 mg PO DAILY Patient Comments: TAKE ONE TABLET BY MOUTH ONE TIME DAILY AT BEDTIME torsemide 20 mg tablet 40 mg PO DAILY Patient Comments: TAKE TWO TABLETS BY MOUTH DAILY metoprolol succinate 50 mg tablet extended release 24 hr 50 mg PO DAILY Patient Comments: TAKE ONE TABLET BY MOUTH ONE TIME DAILY amlodipine 2.5 mg tablet 2.5 mg PO DAILY Patient Comments: TAKE ONE TABLET BY MOUTH ONE TIME DAILY (DME) OneTouch Verio test strips Strip MISCELLANEOUS Patient Comments: USE TO TEST BLOOD SUGARS TWICE DAILY metformin 500 mg tablet extended release 24 hr 2,000 mg PO DAILY Patient Comments: Take 4 Tablets by mouth once daily with evening meal. Trulicity 1.5 mg/0.5 mL pen injector 1.5 mg SUBCUT .weekly Patient Comments: Inject 1.5mg (contents of 1 pen) by subcutaneous route once weekly. sertraline [Zoloft] 50 mg tablet 50 mg PO DAILY Stand Alone Forms: [employer] Info Instructions
[2024-12-03 14:09] LABS: Basophils Absolute Auto 0.02 K/uL (0.00-0.30); Basophils Percent Auto 0.4 % (0.0-3.0); Eosinophils Absolute Auto 0.11 K/uL (0.00-0.50); Hematocrit 38.6 % (33.0-51.0); Hemoglobin* 11.7 gm/dL (12.0-16.0); Immature Granulocytes Abs Auto 0.02 K/uL (0.00-0.30); Immature Granulocytes Pct Auto 0.4 %; Lymphocytes Percent Auto 11.3 % (20-44); Mean Corpuscular HGB Conc 30 gm/dL (32-36); Mean Corpuscular Hemoglobin 27 pg (26-34); Mean Corpuscular Volume 89 fL (80-100); Monocytes Percent Auto 11.6 % (0.0-11.0); Neutrophils Percent Auto 74.3 % (42.0-72.0); Platelet Count* 194 K/uL (140-440); RDW Coefficient of Variation % 15.3 % (11.5-15.5); Red Blood Count 4.33 m/uL (4.00-5.20); White Blood Count* 5.41 K/uL (4.50-11.00)
[2024-12-03 14:12] LABS: HCO3 VBG 28 mmol/L (21-28); PCO2 VBG 50 mmHG (40-50); PO2 VBG 33.4 mmHG (25-47); Slide Review Reflex No; pH VBG 7.352 (7.32-7.43)
[2024-12-03 14:25] LABS: Chloride* 105 mmol/L (96-114); Sodium* 139 mmol/L (135-149)
[2024-12-03 14:26] LABS: Potassium* 4.4 mmol/L (3.6-5.1)
[2024-12-03 14:27] LABS: Bilirubin Total* 0.6 mg/dL (0.1-1.5); Creatinine* 1.3 mg/dL (0.5-1.5); Est. Creatinine Clearance* 27.75; Estimated Glomerular Filt Rate 42 ml/min
[2024-12-03 14:28] LABS: Alanine Aminotransferase* 23 U/L (4-35); Alkaline Phosphatase* 80 U/L (40-150); Anion Gap 8 mEq/L (7-15); Aspartate Amino Transferase* 26 U/L (12-35); Blood Urea Nitrogen* 26 mg/dL (7-30); Carbon Dioxide* 26 mmol/L (20-32); Glucose* 95 mg/dL (60-115); INR 1.12 (0.91-1.10); Prothrombin Time 15.1 Seconds; Total Protein* 6.4 g/dL (6.0-8.3)
[2024-12-03 14:29] LABS: Calcium* 8.8 mg/dL (8.4-10.6); Magnesium* 2.3 mg/dL (1.5-2.6); Partial Thromboplastin Time* 28 Seconds (23-33)
[2024-12-03 14:31] LABS: D Dimer Quantitative* 0.39 ug/ml (0.00-0.50)
[2024-12-03 14:40] LABS: Troponin I* 0.02 ng/mL (0.01-0.04)
[2024-12-03 14:42] LABS: C Reactive Protein* < 0.5 mg/dL (0.5-1.0); NT Pro B Type NatriureticPept* 10700 pg/mL
[2024-12-03 14:44] LABS: PCR FLU A Negative PCR FLU A (Negative); PCR FLU B Negative PCR FLU B (Negative); PCR RSV Negative PCR RSV (Negative); SARS PCR* Negative SARS-CoV-2 (Negative)
[2024-12-03] MEDS: FUROSEMIDE 10 MG/ML inj 60 MG IVP (15:46)
--- OUTSIDE RECORDS SUMMARY | 2024-12-04 13:36 | XMS_ITS | Clinical Summary ---
Author Organization [facility] Address [address] [place] [address] Care Team Providers Care Handbook Writer Name Role Phone Elsewhere, Pcp Primary Care Provider Unavailabl e Source Comments Patient records contain information from all sites at [facility]. For routine questions regarding patient records, call [phone] during business hours, M-F 8:00 AM - 5:00 PM Central Time. 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 Gender Identity Female 05/06/2021 10:16 AM CDT [...] ormed elsewhere), 01/19/2017, 12/02/2015, Additional history exists COVID-19 Vaccine (2023-2 5 season) 2024 10/06/2023, 03/06/2023, 07/16/2022, Additional history exists Influenza Vaccine (#1) 2024 , 08/03/2022, 07/24/2021, Additional history exists Depression Screening (Annual PHQ-2) 11/06/2024 Fall Risk Screen (Annual) 11/06/2024 Hemoglobin A1C 11/07/2024 05/07/2024, 11/12/2022, 03/06/2023, Additional history exists Creatinine Level (Kidney [...] 01/04, 01/04/2018, Additional history exists Pneumococcal vaccine (50+ years) Completed 03/07/2023, 10/08/2014, 02/12/2014, Additional history [...] 15 MMOLL POWERCHART HXeGFR (MDRD) >60 >=60 [id number] POWERCHART eGFR Black/ >60 >=60 [id number] POWERCHART Glucose 92 70 - 139 MGDL [...] 09:13:26 Narrative 03/31/2017 11:24 AM CDT Exam: [place] Mammo Screening w/ CADD Indication: screening Comparison: [...] M.D. / ProviderAmy M.D. - 04/27/2017 Exam: [place] Mammo Screening w/ CADD Indication: screening Comparison: [...] Relevant to Health Maintenance Insurance MEDICARE [facility] Care Teams Handbook Writer Relationship Specialty Start Date End Date Elsewhere, Pcp PCP - General Family Medicine 01/30/19
== END 2024-12-03 18:07 | disposition short-term general hospital (02) ==
PROVIDERS: Emergency Provider Family Medicine; PCP Family Medicine
DX: I34.0 Nonrheumatic mitral (valve) insufficiency (principal); I07.1 Rheumatic tricuspid insufficiency; I50.9 Heart failure, unspecified; I87.312 Chronic venous hypertension (idiopathic) with ulcer of left lower extremity; I87.2 Venous insufficiency (chronic) (peripheral); E11.622 Type 2 diabetes mellitus with other skin ulcer; L97.328 Non-pressure chronic ulcer of left ankle with other specified severity; Z79.84 Long term (current) use of oral hypoglycemic drugs
CPT/HCPCS: 15271; 36415; 71045; 80053; 82803; 83735; 83880; 84443; 84484; 85025; 85379; 85610; 85730; 86140; 87631; 93005; 94761; 96374; 99284; 99285; J1940; Q4201

== ENCOUNTER 2024-12-03 18:00 | Outpatient (CLI) | payer MEDICARE, BC, SELFPAY | END 2024-12-03 18:01 | disposition home or self-care (01) | LOC: AMB 12-08 10:23 | PROVIDERS: PCP Family Medicine; Visit Provider Emergency Medicine | DX: I34.0 Nonrheumatic mitral (valve) insufficiency (principal); I07.1 Rheumatic tricuspid insufficiency | CPT/HCPCS: A0425; A0427 ==

== ENCOUNTER 2024-12-17 08:05 | Outpatient (CLI) | payer MEDICARE, BC, SELFPAY | END 2024-12-17 08:06 | disposition home or self-care (01) | LOC: WOUND 08:05 | PROVIDERS: PCP Family Medicine; Visit Provider Nurse Practitioner Family | DX: I87.312 Chronic venous hypertension (idiopathic) with ulcer of left lower extremity (principal); I87.2 Venous insufficiency (chronic) (peripheral); E11.622 Type 2 diabetes mellitus with other skin ulcer; L97.322 Non-pressure chronic ulcer of left ankle with fat layer exposed; Z79.84 Long term (current) use of oral hypoglycemic drugs | CPT/HCPCS: 97597 ==

== ENCOUNTER 2024-12-24 08:03 | Outpatient (CLI) | payer MEDICARE, BC, SELFPAY | END 2024-12-24 08:04 | disposition home or self-care (01) | PROVIDERS: PCP Family Medicine; Visit Provider Nurse Practitioner Family | DX: I87.312 Chronic venous hypertension (idiopathic) with ulcer of left lower extremity (principal); I87.2 Venous insufficiency (chronic) (peripheral); L97.322 Non-pressure chronic ulcer of left ankle with fat layer exposed | CPT/HCPCS: 97597 ==

== ENCOUNTER 2024-12-31 08:06 | Outpatient (CLI) | payer MEDICARE, BC, SELFPAY | END 2024-12-31 08:07 | disposition home or self-care (01) | LOC: WOUND 08:06 | PROVIDERS: PCP Family Medicine; Visit Provider Nurse Practitioner Family | DX: I87.312 Chronic venous hypertension (idiopathic) with ulcer of left lower extremity (principal); I87.2 Venous insufficiency (chronic) (peripheral); E11.622 Type 2 diabetes mellitus with other skin ulcer; L97.322 Non-pressure chronic ulcer of left ankle with fat layer exposed; Z79.85 Long-term (current) use of injectable non-insulin antidiabetic drugs | CPT/HCPCS: 15271; Q4201 ==

== ENCOUNTER 2025-01-07 08:07 | Outpatient (CLI) | payer MEDICARE, BC, SELFPAY | END 2025-01-07 08:08 | disposition home or self-care (01) | LOC: WOUND 08:07 | PROVIDERS: PCP Family Medicine; Visit Provider Nurse Practitioner Family | DX: I87.312 Chronic venous hypertension (idiopathic) with ulcer of left lower extremity (principal); I87.2 Venous insufficiency (chronic) (peripheral); L97.328 Non-pressure chronic ulcer of left ankle with other specified severity | CPT/HCPCS: G0463 ==

== ENCOUNTER 2025-01-21 08:06 | Outpatient (CLI) | payer MEDICARE, BC, SELFPAY | END 2025-01-21 08:07 | disposition home or self-care (01) | LOC: WOUND 08:06 | PROVIDERS: PCP Family Medicine; Visit Provider Nurse Practitioner Family | DX: I87.2 Venous insufficiency (chronic) (peripheral) (principal); E11.9 Type 2 diabetes mellitus without complications; Z79.85 Long-term (current) use of injectable non-insulin antidiabetic drugs | CPT/HCPCS: G0463 ==

== ENCOUNTER 2025-02-17 21:01 | Outpatient (CLI) | payer MEDICARE, BC, SELFPAY | END 2025-02-17 21:02 | disposition home or self-care (01) | LOC: SLEEP 21:02 | PROVIDERS: PCP Family Medicine; Visit Provider Internal Medicine | DX: G47.33 Obstructive sleep apnea (adult) (pediatric) (principal); R09.02 Hypoxemia | CPT/HCPCS: 95811 ==

== ENCOUNTER 2025-03-13 14:52 | Observation (INO) | payer MEDICARE, BC, SELFPAY ==
[2025-03-13 14:57] VITALS: BP 121/56; PULSE 72; RESP 16; TEMP 36.4; O2SAT 99
--- NOTE | 2025-03-13 15:35 | CRLHL7_ITS ---
For Patients: As a result of the Century Cures Act, medical imaging exams and procedure reports are released immediately into your electronic medical record. You may view this report before your referring provider. If you have questions, please contact your health care provider. INDICATION: FELL LAST PM, LACERATION AND LOC COMPARISON: CT head on August 14, 2022 and prior exams TECHNIQUE: CT of the head without contrast. FINDINGS: Motion degraded exam. Brain Parenchyma: Similar-appearing global cortical involutional changes. No acute infarct, acute intracranial hemorrhage, mass effect, or midline shift. Periventricular and supraventricular white matter hypodensity, suggestive of chronic microvascular ischemic changes. Ventricles: Stable mild ventricular enlargement, commensurate with the degree of cortical involutional changes and sulcal prominence. Extra-axial Spaces: No abnormal fluid collection. Paranasal sinuses: No significant mucosal thickening. Similar appearing mucosal thickening at the alveolar recess of left maxillary sinus, seen on prior study in 2021 Orbits: Unremarkable Mastoid Sinuses: Unremarkable Cranium: No acute fracture Soft tissues: Suspected small right frontal laceration and scalp contusion. No underlying calvarial fracture. IMPRESSION: 1. Motion degraded exam. 2. No CT evidence of an acute intracranial process. 3. Suspected small right frontal laceration and scalp contusion. No underlying calvarial fracture. Please note that all CT scans at this facility use dose modulation, iterative reconstruction, and/or weight-based dosing when appropriate to reduce radiation dose to as low as reasonably achievable. Dictated by Chapincito Gutierrez MD @ 03/13/2025 4:05:45 PM (Electronically Signed)
--- NOTE | 2025-03-13 15:36 | ED_ITS ---
HPI - Fall General Chief Complaint: Fall/Minor Trauma Stated Complaint: fell, hit head Time Seen by Provider: 03/13/25 15:28 History of Present Illness HPI Narrative: This 79-year-old female comes in because of a head injury that occurred last evening. She states that she got up to the bathroom and uses a walker typically for ambulating. She got the walker caught on some clothes around the floor and she tripped. She hit her head and states that she does not remember everything that happened so she assumes that she had loss of consciousness. She has a 2 cm curvilinear laceration on her forehead above her hairline into the scalp. She was able to get up and ambulate. She does not report a headache. She is not on any anticoagulants. Related Data Home Medications ?Medication ?Instructions ?Recorded ?Confirmed amlodipine 2.5 mg tablet 2.5 mg PO DAILY 08/14/22 03/13/25 atorvastatin 40 mg tablet 40 mg PO DAILY 08/14/22 03/13/25 blood sugar diagnostic (OneTouch 08/14/22 03/21/24 Verio test strips) dulaglutide 1.5 mg/0.5 mL 1.5 mg subcut .weekly 08/14/22 03/13/25 subcutaneous pen injector (Trulicity) metformin 500 mg tablet,extended 2,000 mg PO DAILY 08/14/22 03/13/25 release 24 hr metoprolol succinate 50 mg 50 mg PO DAILY 08/14/22 03/13/25 tablet,extended release 24 hr torsemide 20 mg tablet 40 mg PO DAILY 08/14/22 03/13/25 magnesium aspart,citrate,oxide 400 mg PO DAILY 08/01/23 03/13/25 vitamins A,C,G-fmne-gmickf 2,148 1 tab PO BID 08/01/23 03/13/25 mcg-113 mg-45 mg-17.4 mg tablet (Eye Multivitamin) empagliflozin 10 mg tablet 10 mg PO QAM 03/21/24 03/13/25 (Jardiance) esomeprazole magnesium 20 mg 20 mg PO DAILY 08/09/24 03/13/25 capsule,delayed release sertraline 50 mg tablet (Zoloft) 50 mg PO DAILY 12/03/24 03/13/25 Allergies Allergy/AdvReac Type Severity Reaction Status Date / Time losartan Allergy Verified 03/13/25 14:56 Review of Systems Status of ROS: Reports: 10 or more systems reviewed and unremarkable except as noted in History and below Narrative: Constitutional: No fevers, no weight gain or loss. Eyes: No discharge. No vision changes. HENT: No congestion, no sore throat, no ear pain. Cardiovascular: No chest pain, no palpitations. Respiratory: No shortness of breath, no wheezes, no cough. Gastrointestinal: No abdominal pain, no vomiting, no diarrhea. Genitourinary: No dysuria, no hematuria. Musculoskeletal: Normal range of motion. Skin: No rashes, no pruritis. Neurological: No dizziness, weakness, sensory change, speech change. Endo/Heme/Allergies: No bruising or bleeding. No polydipsia. Pysch: no suicidality, no anxiety, no insomnia. All other systems reviewed and are negative. [facility] Medical History Lumbar spondylosis ?M47.816 - Spondylosis without myelopathy or radiculopathy, lumbar region (ICD-10) Essential (primary) hypertension ?I10 - Essential (primary) hypertension (ICD-10) Vitamin B deficiency, unspecified ?E53.9 - Vitamin B deficiency, unspecified (ICD-10) Anxiety disorder, unspecified ?F41.9 - Anxiety disorder, unspecified (ICD-10) Syncope and collapse ?R55 - Syncope and collapse (ICD-10) Hyponatremia ?E87.1 - Hypo-osmolality and hyponatremia (ICD-10) Gait instability ?R26.81 - Unsteadiness on feet (ICD-10) Vertigo ?R42 - Dizziness and giddiness (ICD-10) Obsessive-compulsive disorder, unspecified ?F42.9 - Obsessive-compulsive disorder, unspecified (ICD-10) Adenomatous colon polyp ?D12.6 - Benign neoplasm of colon, unspecified (ICD-10) Hoarding disorder ?F42.3 - Hoarding disorder (ICD-10) Sleep apnea, unspecified ?G47.30 - Sleep apnea, unspecified (ICD-10) Iron deficiency anemia, unspecified ?D50.9 - Iron deficiency anemia, unspecified (ICD-10) Heart failure, unspecified ?I50.9 - Heart failure, unspecified (ICD-10) Varicose veins of right lower extremity with inflammation ?I83.11 - Varicose veins of right lower extremity with inflammation (ICD-10) Type 2 diabetes mellitus without complications ?E11.9 - Type 2 diabetes mellitus without complications (ICD-10) Unspecified mood [affective] disorder ?F39 - Unspecified mood [affective] disorder (ICD-10) Surgical History History of arthroscopy of left shoulder (08/08/14) ?Z98.890 - Other specified postprocedural states (ICD-10) History of total abdominal hysterectomy ?Z90.710 - Acquired absence of both cervix and uterus (ICD-10) Social History Smoking Status: Former smoker What tobacco products do you use: cigarettes Years smoked: 0.5 Smoking quit date/years: >15 years ago Do you use any of these nicotine containing products: None Second hand tobacco smoke exposure: No How often do you have a drink containing alcohol: monthly or less AUDIT-C Alcohol total score: 1 Non-prescribed substance use: denies use Caffeine: Yes Exam Narrative: Exam Narrative: Constitutional: Well-developed, well-nourished, no acute distress. HEENT: 2 cm curvilinear laceration in the scalp above her forehead. No underlying swelling. The wound edges are reasonably approximated and the wound is in process of healing typically after about a day since the injury. Neck: Normal range of motion. Nontender. Supple. Heart: Regular. No murmurs. Normal rate. Intact distal pulses. Lungs: Clear to auscultation. No chest discomfort. No wheezes, rhonchi, or rales. Abdomen: Normal bowel sounds. Nontender. No rebound tenderness. Genitalia: Deferred. Back: No midline tenderness. Normal range of motion. Extremities: Normal range of motion. No injury. Skin: Intact. No rash. Warm. No erythema or pallor. Neurologic: No altered sensation. No weakness. Alert and oriented. Psychiatric: No suicidality. No anxiety or depression. No insomnia. Nursing notes and vitals signs are reviewed. Const: Vital Signs, click to edit/add: Vital Signs - 24 hr 03/13/25 14:57 Temperature 97.5 F L Pulse Rate [Pulse Oximeter] 72 Respiratory Rate 16 Blood Pressure [Ri ght Upper Arm] 121/56 L Pulse Oximetry 99 Oxygen Delivery Me thod Room Air Course Vital Signs Vital signs: Initial Vital Signs Temperature 97.5 F L 03/13/25 14:57 Temperature Source Temporal Artery Scan 03/13/25 14:57 Pulse Rate 72 03/13/25 14:57 Respiratory Rate 16 03/13/25 14:57 Blood Pressure 121/56 L 03/13/25 14:57 Blood Pressure Mean 77 03/13/25 14:57 Pulse Oximetry 99 03/13/25 14:57 Oxygen Delivery Method Room Air 03/13/25 14:57 Vital Signs Temperature 97.5 F L 03/13/25 14:57 Pulse Rate 72 03/13/25 14:57 Respiratory Rate 16 03/13/25 14:57 Blood Pressure 121/56 L 03/13/25 14:57 Pulse Oximetry 99 03/13/25 14:57 Oxygen Delivery Method Room Air 03/13/25 14:57 Temperature 97.5 F L 03/13/25 14:57 Pulse Rate 72 03/13/25 14:57 Respiratory Rate 16 03/13/25 14:57 Blood Pressure 121/56 L 03/13/25 14:57 Pulse Oximetry 99 03/13/25 14:57 Oxygen Delivery Method Room Air 03/13/25 14:57 MDM - Fall MDM Narrative Medical decision making narrative: This patient comes in reporting head injury from a fall that occurred almost a day ago. She did have a laceration and applied direct pressure and subsequently a bandage. The wound is examined and given the distance of time since injury and the way the wound appears it is best not to repair it. There is no underlying swelling. The patient did have loss of consciousness apparently but is not on any anticoagulants. She does not show any neurologic deficits and does not have headache or other symptoms. She does not report any other injury from this fall. A CT scan of her head is obtained and by my review shows no sign of intracranial injury. Discharge Plan Discharge Clinical Impression: Laceration of scalp Patient Disposition: Home w/ Parent or Adult Condition: Stable Additional Instructions: Continue current plans. Keep wound clean and dry. Activity as tolerated. Follow up with MD or return if worsening symptoms occur. Prescriptions: No Action Jardiance 10 mg tablet 10 mg PO QAM esomeprazole magnesium 20 mg capsule,delayed release(DR/EC) 20 mg PO DAILY Eye Multivitamin 2,148 mcg-113 mg-45 mg-17.4mg tablet 1 tab PO BID Rx Instructions: administer with AM and PM meals magnesium aspart,citrate,oxide 400 mg magnesium capsule 400 mg PO DAILY atorvastatin 40 mg tablet 40 mg PO DAILY Patient Comments: TAKE ONE TABLET BY MOUTH ONE TIME DAILY AT BEDTIME torsemide 20 mg tablet 40 mg PO DAILY Patient Comments: TAKE TWO TABLETS BY MOUTH DAILY metoprolol succinate 50 mg tablet extended release 24 hr 50 mg PO DAILY Patient Comments: TAKE ONE TABLET BY MOUTH ONE TIME DAILY amlodipine 2.5 mg tablet 2.5 mg PO DAILY Patient Comments: TAKE ONE TABLET BY MOUTH ONE TIME DAILY (DME) OneTouch Verio test strips Strip MISCELLANEOUS Patient Comments: USE TO TEST BLOOD SUGARS TWICE DAILY metformin 500 mg tablet extended release 24 hr 2,000 mg PO DAILY Patient Comments: Take 4 Tablets by mouth once daily with evening meal. Trulicity 1.5 mg/0.5 mL pen injector 1.5 mg SUBCUT .weekly Patient Comments: Inject 1.5mg (contents of 1 pen) by subcutaneous route once weekly. sertraline [Zoloft] 50 mg tablet 50 mg PO DAILY Follow Up/Referrals: Ashutosh Gonzales MD [Primary Care Provider] - Stand Alone Forms: [employer] Info Instructions
[2025-03-13 17:00] VITALS: BP 120/62; PULSE 84; RESP 16; O2SAT 96
--- NOTE | 2025-03-13 17:46 | CRLHL7_ITS ---
For Patients: As a result of the Cures Act, medical imaging exams and procedure reports are released immediately into your electronic medical record. You may view this report before your referring provider. If you have questions, please contact your health care provider. INDICATION: History congestive heart failure TECHNIQUE: Chest radiograph 1 view COMPARISON: 12/03/2024 FINDINGS: The sensitivity and specificity of the exam are moderately limited by the patient`s body habitus. Mediastinum: The mediastinum is normal in appearance. Moderate, stable cardiomegaly is noted. Lung: Both lungs are unremarkable in appearance. No sign of pleural effusion seen. No pneumothorax is identified. Bone and Soft tissue: Unremarkable for age. IMPRESSION: 1. Moderate, stable cardiomegaly is noted. Dictated by Hernan Awan MD @ 03/13/2025 6:27:55 PM Dictated by: Hernan Awan MD @ 03/13/2025 18:27:58 (Electronically Signed)
[2025-03-13 18:02] LABS: Basophils Absolute Auto 0.02 K/uL (0.00-0.30); Basophils Percent Auto 0.2 % (0.0-3.0); Eosinophils Absolute Auto 0.06 K/uL (0.00-0.50); Eosinophils Percent Auto 0.7 % (0.0-7.0); Hematocrit 33.5 % (33.0-51.0); Hemoglobin* 10.8 gm/dL (12.0-16.0); Immature Granulocytes Abs Auto 0.03 K/uL (0.00-0.30); Immature Granulocytes Pct Auto 0.4 %; Mean Corpuscular HGB Conc 32 gm/dL (32-36); Mean Corpuscular Hemoglobin 28 pg (26-34); Mean Corpuscular Volume 86 fL (80-100); Monocytes Percent Auto 9.3 % (0.0-11.0); Neutrophils Percent Auto 81.4 % (42.0-72.0); Platelet Count* 224 K/uL (140-440); Red Blood Count 3.89 m/uL (4.00-5.20); White Blood Count* 8.53 K/uL (4.50-11.00)
[2025-03-13 18:05] LABS: Slide Review Reflex No
[2025-03-13 18:15] LABS: Appearance Urine Clear (Clear); Bilirubin Urine Negative (Negative); Blood Urine Negative (Negative); Color Urine Yellow (Yellow); Glucose Urine Negative (Negative); Ketones Urine Negative (Negative); Leukocyte Esterase Urine Trace (Negative); Nitrite Urine Negative (Negative); Protein Urine Negative (Negative); Urobilinogen Urine 0.2 (0.2-1.0); pH Urine 6.5 (5.0-8.5)
[2025-03-13 18:22] LABS: Albumin* 4.4 g/dL (3.3-5.0); Chloride* 95 mmol/L (96-114); Potassium* 3.9 mmol/L (3.6-5.1); Sodium* 132 mmol/L (135-149)
[2025-03-13 18:24] LABS: Anion Gap 11 mEq/L (7-15); Blood Urea Nitrogen* 35 mg/dL (7-30); Carbon Dioxide* 26 mmol/L (20-32); Creatinine* 1.7 mg/dL (0.5-1.5); Estimated Glomerular Filt Rate 30 ml/min
[2025-03-13 18:25] LABS: Alanine Aminotransferase* 37 U/L (4-35); Alkaline Phosphatase* 111 U/L (40-150); Aspartate Amino Transferase* 48 U/L (12-35); Bilirubin Total* 0.7 mg/dL (0.1-1.5); Calcium* 9.2 mg/dL (8.4-10.6); Glucose* 68 mg/dL (60-115)
[2025-03-13 18:29] LABS: RBC Urine 0-2 (0-2); WBC Urine 0-2 (0-5)
--- NOTE | 2025-03-13 18:42 | P.IMHP_ITS ---
Assessment and Plan Assessment and plan (1) Fall: Problem comment: Mechanical fall, patient hit her head CT head performed and was negative for acute pathology History of gait instability Ordered P.T./OT for evaluation and treatment Status: Acute (2) Laceration of scalp: Problem comment: Patient has laceration of her forehead after she fell down on March 13 around 5:00 a.m. Status: Acute (3) Systolic heart failure: Problem comment: -Currently patient's heart failure is compensated. -Pt was admitted at [facility] on 12/03/2024 with dyspnea on exertion x 3 months and worsening bilateral leg edema for 2 days. -Echocardiogram EF 39%, hypokinetic inferior wall, severe MR/TR, moderately reduced systolic RV function. -proBNP [id number] back in Dec 2024. - Underwent bilateral heart cath on 12/09 demonstrating patent epicardial coronary arteries, mild to moderate pulmonary hypertension. -Resume her heart failure medications including her diuretics: Bumex Status: Chronic (4) Sleep apnea, unspecified: Problem comment: On CPAP Status: Chronic (5) Type 2 diabetes mellitus without complications: Problem comment: Trulicity, metformin and Jardiance Status: Acute (6) Essential (primary) hypertension: Status: Acute (7) Gait instability: Problem comment: History of falls Status: Acute (8) Gout: Problem comment: On allopurinol Status: Acute (9) Stage 3b chronic kidney disease (CKD): Status: Acute Total Time Spent Total Time Spent: Time spent: Today I spent 75 minutes seeing the patient, discussing the patient with ER staff, reviewing [facility]panse and EPIC notes/diagnostics, discussing the care plan with our care time that includes social work, PT/OT, pharmacy, RT, shelter and documenting my impressions and plan in the medical record. Hospitalist- H&P: HPI History of Present Illness Date Seen: 03/13/25 Chief complaint: fell, hit head Narrative: Jessica Meek is a 79 year old female with history of chronic systolic heart failure with recovered EF (HFrEF), bcn-fgcaxrs-kjpucpbeu diabetes, diabetic foot ulcer, hypertension, CKD 3b, hyperlipidemia, RESHMA on CPAP, gout, OCD. 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 today. Patient states that she tripped while using her walker to the bathroom and she hit her head, she denies loss of consciousness prior to falling down but she said she might have blacked out after she hit her head a short time. Pt had a laceration that was treated at ED. Patient has been having frequent falls recently and currently her , who she lives with, is not able to take care of her as he had a recent surgery. At baseline patient's creatinine is around 1.7. Patient states that her heart failure is controlled right now and is doing much better, her last exacerbation of heart failure was in December. At the ED, patient was hemodynamically stable. Head CT scan did not show any acute pathology. Review of Systems Status of ROS: Reports: 6 or more systems reviewed and unremarkable except as noted in History and below [facility] Medical History (Updated 03/13/25 @ 20:30 by Ally Salinas MD) Lumbar spondylosis ?M47.816 - Spondylosis without myelopathy or radiculopathy, lumbar region (ICD-10) Essential (primary) hypertension ?I10 - Essential (primary) hypertension (ICD-10) Vitamin B deficiency, unspecified ?E53.9 - Vitamin B deficiency, unspecified (ICD-10) Anxiety disorder, unspecified ?F41.9 - Anxiety disorder, unspecified (ICD-10) Syncope and collapse ?R55 - Syncope and collapse (ICD-10) Hyponatremia ?E87.1 - Hypo-osmolality and hyponatremia (ICD-10) Gait instability ?R26.81 - Unsteadiness on feet (ICD-10) Vertigo ?R42 - Dizziness and giddiness (ICD-10) Obsessive-compulsive disorder, unspecified ?F42.9 - Obsessive-compulsive disorder, unspecified (ICD-10) Adenomatous colon polyp ?D12.6 - Benign neoplasm of colon, unspecified (ICD-10) Hoarding disorder ?F42.3 - Hoarding disorder (ICD-10) Sleep apnea, unspecified ?G47.30 - Sleep apnea, unspecified (ICD-10) Iron deficiency anemia, unspecified ?D50.9 - Iron deficiency anemia, unspecified (ICD-10) Heart failure, unspecified ?I50.9 - Heart failure, unspecified (ICD-10) Varicose veins of right lower extremity with inflammation ?I83.11 - Varicose veins of right lower extremity with inflammation (ICD-10) Type 2 diabetes mellitus without complications ?E11.9 - Type 2 diabetes mellitus without complications (ICD-10) Unspecified mood [affective] disorder ?F39 - Unspecified mood [affective] disorder (ICD-10) Surgical History History of arthroscopy of left shoulder (08/08/14) ?Z98.890 - Other specified postprocedural states (ICD-10) History of total abdominal hysterectomy ?Z90.710 - Acquired absence of both cervix and uterus (ICD-10) Social History What is your current living situation?: I presently have a place to live Problems where you live: no known problems Problems where you live details: none In the past 12 months, utilities in danger of being shut off: no In past 12 months, lack of transportation kept you from medical appts, meetings, work, or getting things needed for daily living: no In the past 12 mos, have been you worried that your food would run out before you had money to buy more?: never true In the past 12 mos, the food you bought just didn't last and you didn't have money to buy more?: never true Highest level of school completed/degree received: Bachelor's degree Smoking Status: Former smoker What tobacco products do you use: cigarettes Years smoked: 0.5 Smoking quit date/years: >15 years ago Do you use any of these nicotine containing products: None Second hand tobacco smoke exposure: No How often do you have a drink containing alcohol: never AUDIT-C Alcohol total score: 0 Non-prescribed substance use: denies use Caffeine: Yes (coffee) How often does anyone, including family, friends and others, physically hurt you : never How often does anyone, including family, friends and others, insult or talk down to you: rarely How often does anyone, including family, friends and others, threaten you with harm: never How often does anyone, including family, friends and others, scream or curse at you: never service: No Health Related Social Needs: Other personal risk factors, not elsewhere classified (Z91.89) Meds Home Medications and Allergies Home Medications ?Medication ?Instructions ?Recorded ?Confirmed ?Type amlodipine 2.5 mg tablet 2.5 mg PO DAILY 08/14/22 03/13/25 History atorvastatin 40 mg tablet 40 mg PO DAILY 08/14/22 03/13/25 History blood sugar diagnostic (OneTouch 08/14/22 03/21/24 History Verio test strips) dulaglutide 1.5 mg/0.5 mL 1.5 mg subcut .weekly 08/14/22 03/13/25 History subcutaneous pen injector (Trulicity) metformin 500 mg tablet,extended 2,000 mg PO DAILY 08/14/22 03/13/25 History release 24 hr metoprolol succinate 50 mg 50 mg PO DAILY 08/14/22 03/13/25 History tablet,extended release 24 hr torsemide 20 mg tablet 40 mg PO DAILY 08/14/22 03/13/25 History magnesium aspart,citrate,oxide 400 mg PO DAILY 08/01/23 03/13/25 History vitamins A,C,M-sjsg-cailxn 2,148 1 tab PO BID 08/01/23 03/13/25 History mcg-113 mg-45 mg-17.4 mg tablet (Eye Multivitamin) empagliflozin 10 mg tablet 10 mg PO QAM 03/21/24 03/13/25 History (Jardiance) esomeprazole magnesium 20 mg 20 mg PO DAILY 08/09/24 03/13/25 History capsule,delayed release sertraline 50 mg tablet (Zoloft) 50 mg PO DAILY 12/03/24 03/13/25 History allopurinol 200 mg tablet 200 mg PO DAILY 03/13/25 03/13/25 History bumetanide 2 mg tablet 2 mg PO BID 03/13/25 03/13/25 History hydralazine 25 mg tablet 25 mg PO 3XD 03/13/25 03/13/25 History isosorbide dinitrate 10 mg tablet 10 mg PO 3XD 03/13/25 03/13/25 History vibegron 75 mg tablet (Gemtesa) 75 mg PO DAILY 03/13/25 03/13/25 History Allergies Allergy/AdvReac Type Severity Reaction Status Date / Time losartan Allergy Verified 03/13/25 14:56 Exam Narrative: Exam Narrative: Physical exam GENERAL: Comfortable, no acute distress. HEAD AND NECK: A clean dressing on her right forehead area. CARDIOVASCULAR: RRR. Normal S1, S2. No murmurs. RESPIRATORY: Clear to auscultation B/L. Good air entry B/L. No wheezes or rhonchi. NEUROLOGY: Alert, awake, oriented. Normal speech. PSYCH: Normal mood, normal affect. Const: Vital Signs, click to edit/add: Vital Signs - 24 hr 03/13/25 14:57 Temperature 97.5 F L Pulse Rate [Pulse Oximeter] 72 Respiratory Rate 16 Blood Pressure [Ri ght Upper Arm] 121/56 L Pulse Oximetry 99 Oxygen Delivery Me thod Room Air Hospitalist - H&P: Result Labs Labs: Short CBC 03/13/25 Range/Units 17:57 WBC 8.53 (4.50-11.00) K/uL Hgb 10.8 L (12.0-16.0) gm/dL Hct 33.5 (33.0-51.0) % Plt Count 224 (140-440) K/uL BMP 03/13/25 17:57 Sodium 132 L Potassium 3.9 Chloride 95 L Carbon Dioxide 26 BUN 35 H Creatinine 1.7 H Glucose 68 Calcium 9.2 Liver Function 03/13/25 Range/Units 17:57 Total Bilirubin 0.7 (0.1-1.5) mg/dL AST 48 H (12-35) U/L ALT 37 H (4-35) U/L Alkaline Phosphatase 111 (40-150) U/L Albumin 4.4 (3.3-5.0) g/dL Urine 03/13/25 Range/Units 18:00 Urine Color Yellow (Yellow) Urine Appearance Clear (Clear) Urine pH 6.5 (5.0-8.5) Ur Specific [place] 1.010 (1.000-1.030) Urine Protein Negative (Negative) Urine Glucose (UA) Negative (Negative) Imaging CT scan - head: Radiologist's impression: INDICATION: FELL LAST PM, LACERATION AND LOC COMPARISON: CT head on August 14, 2022 and prior exams TECHNIQUE: CT of the head without contrast. FINDINGS: Motion degraded exam. Brain Parenchyma: Similar-appearing global cortical involutional changes. No acute infarct, acute intracranial hemorrhage, mass effect, or midline shift. Periventricular and supraventricular white matter hypodensity, suggestive of chronic microvascular ischemic changes. Ventricles: Stable mild ventricular enlargement, commensurate with the degree of cortical involutional changes and sulcal prominence. Extra-axial Spaces: No abnormal fluid collection. Paranasal sinuses: No significant mucosal thickening. Similar appearing mucosal thickening at the alveolar recess of left maxillary sinus, seen on prior study in 2021 Orbits: Unremarkable Mastoid Sinuses: Unremarkable Cranium: No acute fracture Soft tissues: Suspected small right frontal laceration and scalp contusion. No underlying calvarial fracture. IMPRESSION: 1. Motion degraded exam. 2. No CT evidence of an acute intracranial process. 3. Suspected small right frontal laceration and scalp contusion. No underlying calvarial fracture. Please note that all CT scans at this facility use dose modulation, iterative reconstruction, and/or weight-based dosing when appropriate to reduce radiation dose to as low as reasonably achievable. Dictated by Chapincito Gutierrez MD @ 03/13/2025 4:05:45 PM
[2025-03-13 18:52] VITALS: BP 117/56; PULSE 18; TEMP 36.3; O2SAT 94; BMI 34.4
[2025-03-13 19:00] VITALS: BP 121/57; PULSE 66; RESP 21; O2SAT 99
--- NOTE | 2025-03-13 19:26 | PC.NURSE ---
Patient arrived to the floor about 1845, alert and oriented. Patient vitally stable, reports chronic back pain 03/15. Patient is 1A/SBA with walker. Patient eating dinner while RN completes admission. Patient urinated upon admission.
[2025-03-13] MEDS: HYDRALAZINE 25 MG TABLET PO (20:37)
[2025-03-13] MEDS: ISOSORBIDE DINITRATE 10 MG TABLET PO (20:37)
[2025-03-13] MEDS: BUMETANIDE 1 MG TABLET 2 MG PO (21:04)
[2025-03-13] MEDS: HEPARIN 5,000 UNIT/0.5 ML INJ 5000 UNIT SUBCUT (22:56)
[2025-03-13 23:00] VITALS: BP 126/57; PULSE 62; RESP 20; TEMP 36.5; O2SAT 99
[2025-03-14] VITALS (8 sets, daily range): BP systolic 115–143; BP diastolic 46–67; PULSE 65–75; RESP 18–22; TEMP 36.4–36.6; O2SAT 95–100
[2025-03-14 06:52] LABS: Hematocrit 33.5 % (33.0-51.0); Hemoglobin* 10.9 gm/dL (12.0-16.0); Mean Corpuscular HGB Conc 33 gm/dL (32-36); Mean Corpuscular Hemoglobin 28 pg (26-34); Mean Corpuscular Volume 86 fL (80-100); Platelet Count* 225 K/uL (140-440); Slide Review Reflex No; White Blood Count* 6.85 K/uL (4.50-11.00)
--- NOTE | 2025-03-14 06:58 | PC.NURSE ---
Shift note ([id number]): Patient pleasant, alert and oriented. Ambulated with walker, gait belt and stand by assist. Reported pain in her lower back, right shoulder and some discomfort at site of head laceration. Bandage to laceration clean, dry and intact.?Loose stools this shift. Awaiting to obtain stool sample.
[2025-03-14 07:00] LABS: Chloride* 94 mmol/L (96-114); Potassium* 4.3 mmol/L (3.6-5.1); Sodium* 132 mmol/L (135-149)
[2025-03-14 07:03] LABS: Anion Gap 11 mEq/L (7-15); Blood Urea Nitrogen* 35 mg/dL (7-30); Calcium* 9.1 mg/dL (8.4-10.6); Carbon Dioxide* 27 mmol/L (20-32); Creatinine* 1.7 mg/dL (0.5-1.5); Est. Creatinine Clearance* 21.22; Estimated Glomerular Filt Rate 30 ml/min; Glucose* 81 mg/dL (60-115)
[2025-03-14 07:04] LABS: Magnesium* 2.1 mg/dL (1.5-2.6)
[2025-03-14] MEDS: ISOSORBIDE DINITRATE 10 MG TABLET PO ×3 (09:27→20:44)
[2025-03-14] MEDS: BUMETANIDE 1 MG TABLET 2 MG PO ×2 (09:27→20:43)
[2025-03-14] MEDS: allopurinoL 100 MG TABLET 200 MG PO (09:27)
[2025-03-14] MEDS: ATORVASTATIN CALCIUM 40 MG TABLET PO (09:28)
[2025-03-14] MEDS: METOPROLOL SUCCINATE (XL) 50 MG TAB PO (09:28)
[2025-03-14] MEDS: EMPAGLIFLOZIN 10 MG TABLET PO (09:28)
[2025-03-14] MEDS: HEPARIN 5,000 UNIT/0.5 ML INJ 5000 UNIT SUBCUT ×2 (09:28→20:42)
[2025-03-14] MEDS: HYDRALAZINE 25 MG TABLET PO ×3 (09:28→20:43)
[2025-03-14] MEDS: SERTRALINE 100 MG TABLET PO (09:28)
[2025-03-14] MEDS: OMEPRAZOLE 20 MG CAPSULE DR PO (09:28)
[2025-03-14] MEDS: MAGNESIUM OXIDE 400 MG TABLET PO (09:28)
--- NOTE | 2025-03-14 10:20 | NUTR.NU ---
RDN with nutrition screen related to positive MST score and diet education related to current diet order. Patient admitted with laceration to scalp s/p fall, and WILLIAM. Medical history includes heart failure, type 2 diabetes mellitus, and chronic kidney disease stage 3. Current weight 183lb 8.772oz; height 5ft 2in; BMI 33.6 kg/m2. Per weight records, weight has decreased by about 10 lbs within 6 months, this is not a significant loss. Current diet order is heart healthy and diabetic. RDN visited with patient whom reports a low appetite. She snacks a lot throughout the day on yogurt, fruit, and sometimes ice cream. However, she reports her appetite is better today and she was able to eat an omelet and pancakes this morning for breakfast. RDN offered diet education related to heart health and diabetic diet, however patient declined at this time. No nutrition interventions at this time with good intakes and non-significant weight loss. Will continue to monitor and follow-up prn.
[2025-03-14 12:14] LABS: C.Difficile Negative (Negative); CDIFFEPI 027 PRESUMPTIVE NEGATIVE (Negative)
--- NOTE | 2025-03-14 13:23 | CRLHL7_ITS ---
For Patients: As a result of the Century Cures Act, medical imaging exams and procedure reports are released immediately into your electronic medical record. You may view this report before your referring provider. If you have questions, please contact your health care provider. INDICATION: AMS TECHNIQUE: Multiplanar multisequence MRI brain without contrast. COMPARISONS: Prior day CT Brain. FINDINGS: Moderate diffuse parenchymal volume loss with commensurate ex vacuo dilatation of the ventricles and sulci. No midline shift. No acute hemorrhage. Confluent periventricular and patchy subcortical white foci of T2-FLAIR hyperintensity. No convincing evidence of diffusion restriction. The apparent mild gradient of posterior cerebral diffusion-weighted hyperintensity is symmetric and compatible with magnetic field inhomogeneity artifact. No ADC hypointensity. No abnormal parenchyma susceptibility artifact. Redemonstrated chronic moderate mucosal thickening in the left maxillary sinus with associated sinus volume loss. Redemonstrated right frontal scalp edema. IMPRESSION: 1. No acute intracranial hemorrhage, infarct, or mass effect. 2. Moderate diffuse parenchymal volume loss. 3. Moderate patchy cerebral white matter hyperintensity, which is nonspecific, but compatible with chronic small vessel ischemic changes. Dictated by Julio Fletcher MD @ 03/14/2025 4:58:33 PM (Electronically Signed)
--- NOTE | 2025-03-14 13:30 | P.IMPN_ITS ---
Assessment and Plan Assessment and plan (1) AMS (altered mental status): Problem comment: -acute confusion could be related to concussion from fall -more broad concerns regarding cognitive decline that is fairly acute in the last 2-3 months worry family (and patient) -underlying mental health treatment makes this harder to sort out. -Head CT and CXR neg. vitals normal. BS normal. No new meds. will obtain MR (r/o infarct or tumor), recommended Neuropysch testing as an outpatient. I've added EKG,troponin, TSH, RPR, Covid testing. -She does have a mild WILLIAM and mild transaminitis. Unclear if this is clinically relevant. Status: Acute (2) HFrEF (heart failure with reduced ejection fraction): Problem comment: -Admitted to [facility] for acute HFrEF in November 2024 x 8 days Echocardiogram EF 39%, hypokinetic inferior wall, severe MR/TR, moderately reduced systolic RV function. Of note, she also had skin graft done 12/03 for her diabetic foot ulcer. In emergency department hemoglobin 11.7, creatinine 1.3, troponin I 0.02, proBNP 28098. CXR with mild pulmonary edema. Underwent bilateral heart cath on 12/09 demonstrating patent epicardial coronary arteries, mild to moderate pulmonary hypertension PA=59/22, mean 30; PW=20; RV=59/13; RA=11; CO = 5.0 L/min (est Maria Elena). Cardiology started hydralazine, isordil. Stress MRI done and showed ischemia in inferior wall. Her angiogram was neg for obstructive CAD, RHC showed mild/moderate pulmonary HTN, etiology of reduced EF thought to be from CPAP non- adherence in the past few months, she was restarted on her CPAP and recommended close follow up with her sleep medicine team. She was discharged on nocturnal oxygen as well. Status: Acute (3) Pulmonary HTN: Status: Acute (4) Personal history of diabetic foot ulcer: Status: Acute (5) Non compliance with medical treatment: Problem comment: etiology of reduced EF thought to be from CPAP non-adherence in the past few months, she was restarted on her CPAP and recommended close follow up with her sleep medicine team. She was discharged on nocturnal oxygen as well. Status: Acute (6) Fall: Problem comment: Mechanical fall, patient hit her head CT head performed and was negative for acute pathology History of gait instability Ordered P.T./OT for evaluation and treatment Status: Acute (7) Laceration of scalp: Problem comment: DOI: March 12 around 5:00 a.m. secondary intention - no sutures Status: Acute (8) Sleep apnea, unspecified: Problem comment: ordered CPAP - not compliant - led to admission for CHF in Nov 30 Status: Chronic (9) Gait instability: Problem comment: History of falls Status: Acute (10) Stage 3b chronic kidney disease (CKD): Status: Acute (11) Type 2 diabetes mellitus without complications: Problem comment: Trulicity, metformin and Jardiance Status: Acute (12) Essential (primary) hypertension: Status: Acute (13) Anxiety disorder, unspecified: Status: Acute (14) Gout: Problem comment: On allopurinol Status: Acute (15) OAB (overactive bladder): Status: Acute (16) Concussion: Problem comment: -intact neuro exam but the AMS is present and unclear if this is from concussion, med compliance, worsening dementia. Continue to follow. Status: Acute Subjective Date Seen: 03/14/25 Interval history: Daily Progress Note - Hospital Medicine Day #: 2 CC: Acute mental status change, recent fall, personality changes 24 HOUR UPDATE: 79-year-old admitted last evening after a fall. She fell at home, lacerated her right taoist, crawled back to bed and was found a few hours later by her with the wound and matted hair and a little confused. She knew who she was and what happened but she could not tell me the details of what happened overnight or when it happened. He sleeps in a different room. ER Note and workup reviewed. I spent 45 mins on the phone with the daughter and - major personality changes in Jessica over the last 2-3 months, worsening in the last 2-3 weeks. Not showering; Not doing usual chores, sleeping more than usual, odd shopping patterns, the most recent fall. Under[place] depression, OCD and ROSALBA but this seems different. No fever, chills, or evidence of infection. No new medications. Recent admission at [facility] for HF Notable Labs, Micro, Rads, Interventions: White blood cell count is normal. Very mild hyponatremia, 132 Mild WILLIAM up to 1.7 from a baseline of 1.3 Mild AST and ALT elevations, less than 1 times normal Trace LE and urine culture is pending No blood cultures drawn Neg CDIFF CXR and Head CT normal. Objective: Vitals: see above Lungs: Clear. Cardiac: S1S2. Disposition/Potential discharge - Today I spent 50minutes seeing the patient, reviewing Expanse and EPIC notes/diagnostics, discussing the care plan with our care time that includes social work, PT/OT, pharmacy, RT, nursing home and documenting my impressions and plan in the medical record. Exam Const: Vital Signs, click to edit/add: Vital Signs - 24 hr 03/13/25 14:57 03/13/25 17:00 03/13/25 18:40 Temperature 97.5 F L Pulse Rate 84 Pulse Rate [Pulse Oximeter] 72 Respiratory Rate 16 16 Blood Pressure 120/62 Blood Pressure [Le ft Arm] Blood Pressure [Ri ght Arm'] Blood Pressure [Ri ght Upper Arm] 121/56 L Pulse Oximetry 99 96 Oxygen Delivery Me thod Room Air Room Air 03/13/25 18:52 03/13/25 19:00 03/13/25 23:00 Temperature 97.3 F L 97.7 F Pulse Rate Pulse Rate [Pulse Oximeter] 18 L 66 62 Respiratory Rate 21 20 Blood Pressure Blood Pressure [Le ft Arm] 117/56 L 121/57 L 126/57 L Blood Pressure [Ri ght Arm'] Blood Pressure [Ri ght Upper Arm] Pulse Oximetry 94 99 99 Oxygen Delivery Me thod Room Air Room Air Room Air 03/14/25 03:00 03/14/25 09:41 03/14/25 09:41 Temperature 97.6 F 97.5 F L Pulse Rate Pulse Rate [Pulse Oximeter] 75 72 72 Respiratory Rate 18 20 20 Blood Pressure Blood Pressure [Le ft Arm] 135/64 121/46 L Blood Pressure [Ri ght Arm'] Blood Pressure [Ri ght Upper Arm] Pulse Oximetry 97 96 Oxygen Delivery Me thod Room Air Room Air 03/14/25 11:26 Temperature 97.8 F Pulse Rate Pulse Rate [Pulse Oximeter] 65 Respiratory Rate 18 Blood Pressure Blood Pressure [Le ft Arm] Blood Pressure [Ri ght Arm'] 124/62 Blood Pressure [Ri ght Upper Arm] Pulse Oximetry 100 Oxygen Delivery Me thod Room Air Labs Labs: Laboratory Results - last 24 hr 03/13/25 03/13/25 03/14/25 17:57 18:00 06:35 WBC 8.53 6.85 RBC 3.89 L 3.90 L Hgb 10.8 L 10.9 L Hct 33.5 33.5 MCV 86 86 MCH 28 28 MCHC 32 33 RDW Coeff of Dez 17.0 H Plt Count 224 225 Neut % (Auto) 81.4 H Lymph % (Auto) 8.0 L [place] % (Auto) 9.3 Eos % (Auto) 0.7 Baso % (Auto) 0.2 Neut # (Auto) 6.90 Lymph # (Auto) 0.70 L [place] # (Auto) 0.80 Eos # (Auto) 0.06 Baso # (Auto) 0.02 Abs Immat Gran (auto) 0.03 Imm/Tot Granulo (auto) 0.4 Sodium 132 L 132 L Potassium 3.9 4.3 Chloride 95 L 94 L Carbon Dioxide 26 27 Anion Gap 11 11 BUN 35 H 35 H Creatinine 1.7 H 1.7 H Estimated Creat Clear 21.22 Estimated GFR 30 30 Glucose 68 81 Calcium 9.2 9.1 Magnesium 2.1 Total Bilirubin 0.7 AST 48 H ALT 37 H Alkaline Phosphatase 111 Total Protein 7.0 Albumin 4.4 Urine Color Yellow Urine Appearance Clear Urine pH 6.5 Ur Specific [place] 1.010 Urine Protein Negative Urine Glucose (UA) Negative Urine Ketones Negative Urine Blood Negative Urine Nitrite Negative Urine Bilirubin Negative Urine Urobilinogen 0.2 Ur Leukocyte Esterase Trace A Urine RBC 0-2 Urine WBC 0-2 Ur Squamous Epith Cells None Urine Bacteria None Stl C. diff Tox B Gene Stl C. diff [id number] 03/14/25 11:00 WBC RBC Hgb Hct MCV MCH MCHC RDW Coeff of Dez Plt Count Neut % (Auto) Lymph % (Auto) [place] % (Auto) Eos % (Auto) Baso % (Auto) Neut # (Auto) Lymph # (Auto) [place] # (Auto) Eos # (Auto) Baso # (Auto) Abs Immat Gran (auto) Imm/Tot Granulo (auto) Sodium Potassium Chloride Carbon Dioxide Anion Gap BUN Creatinine Estimated Creat Clear Estimated GFR Glucose Calcium Magnesium Total Bilirubin AST ALT Alkaline Phosphatase Total Protein Albumin Urine Color Urine Appearance Urine pH Ur Specific [place] Urine Protein Urine Glucose (UA) Urine Ketones Urine Blood Urine Nitrite Urine Bilirubin Urine Urobilinogen Ur Leukocyte Esterase Urine RBC Urine WBC Ur Squamous Epith Cells Urine Bacteria Stl C. diff Tox B Gene Negative Stl C. diff [id number] PRESUMPTIVE NEGATIVE
[2025-03-14 14:19] LABS: C Reactive Protein* 2.1 mg/dL (0.5-1.0)
[2025-03-14 14:29] LABS: Troponin I* 0.03 ng/mL (0.01-0.04)
[2025-03-14 14:31] LABS: Amphetamine Screen Urine Negative (Negative); Barbiturate Screen Urine Negative (Negative); Benzodiazepines Screen Urine Negative (Negative); Cannabinoid Screen Urine Negative (Negative); Cocaine Screen Urine Negative (Negative); Methadone Screen Urine Negative (Negative); Methamphetamines Screen Urine Negative (Negative); Opiate Screen Urine Negative (Negative); Oxycodone Screen Urine Negative (Negative); Phencyclidine Screen Urine Negative (Negative); Tricyclic Antidepressant Urine Negative (Negative)
[2025-03-14 15:09] LABS: SARS Antigen* Negative (Negative)
--- NOTE | 2025-03-14 15:46 | PC.SOCIAL ---
Discharge planning: farmworker cranberry met with pt this afternoon in her room. Pt stated that her was home resting as he just had eye surgery the day before she fell. The pt then stated that her daughter was unavailable to talk because she had to urgently drive back to [place], [place] where she lives to deal with a crisis at her daughter's school. Pt states that she lives at home with her on three acres of land. Pt states that she was just discharged from home care services with [facility] because Medicare would no longer pay for it. Pt states that she had PT, OT, detention and a FRONT OFFICE DEVELOPER. Pt states that she is interested in hiring [facility] for [facility]. farmworker cranberry provided the pt with a list of [facility] and circled the information for [facility]. Pt states that she feels she is doing okay at home and will be doing better with the added in home services. Pt states that her and her would like to stay at home as long as possible and are not ready to move. Pt also states that she does outpatient speech therapy through [facility] in [place], but will be taking a break from that for awhile now because her is not able to drive her while he recovers from his eye surgery. Pt states that she no longer drives and hasn't for awhile now. Social work to follow-up as needed.
[2025-03-14] MEDS: INSULIN ASPART 100 UNIT/ML SUBCUT (17:41)
--- NOTE | 2025-03-14 18:20 | PC.NURSE ---
End of Shift: Patient pleasant and cooperative, alert and oriented but forgetful. Patient vitally stable, lungs clear, BS WNL, NO IV. Patient 1 assist/walker and denies pain. Patient tolerating regular diet, urinating well, and has had a couple loose stools. Patient's blood sugars have been 82, 92, and 244. Band aid on on head is C/D/I.
[2025-03-15] VITALS (7 sets, daily range): BP systolic 117–126; BP diastolic 50–64; PULSE 68–97; RESP 16–20; TEMP 36.4–36.9; O2SAT 97–98
--- NOTE | 2025-03-15 06:22 | PC.NURSE ---
End of shift [id number]: Pt AxOx4, pleasant, and cooperative with cares. Pt reported dizziness with activity that was reported Pts baseline. A1 GB W. Pt was partially incontinent of the bladder due to urgency. Brief changed, new sheets applied. Pt able to rest for majority of the shift. Denies pain. Pt appears resting wtih call light in reach, bed alarm on. Does not use call light appropriately.
[2025-03-15 06:24] LABS: HCO3 VBG 26 mmol/L (21-28); PCO2 VBG 38 mmHG (40-50); PO2 VBG 64.6 mmHG (25-47); pH VBG 7.439 (7.32-7.43)
[2025-03-15 06:29] LABS: Basophils Absolute Auto 0.03 K/uL (0.00-0.30); Basophils Percent Auto 0.5 % (0.0-3.0); Eosinophils Absolute Auto 0.22 K/uL (0.00-0.50); Eosinophils Percent Auto 3.6 % (0.0-7.0); Hematocrit 30.2 % (33.0-51.0); Hemoglobin* 9.9 gm/dL (12.0-16.0); Immature Granulocytes Abs Auto 0.05 K/uL (0.00-0.30); Immature Granulocytes Pct Auto 0.8 %; Lymphocytes Percent Auto 13.5 % (20-44); Mean Corpuscular HGB Conc 33 gm/dL (32-36); Mean Corpuscular Hemoglobin 28 pg (26-34); Mean Corpuscular Volume 85 fL (80-100); Monocytes Percent Auto 13.1 % (0.0-11.0); Neutrophils Absolute Auto 4.17 K/uL (1.7-7.0); Neutrophils Percent Auto 68.5 % (42.0-72.0); Platelet Count* 227 K/uL (140-440); RDW Coefficient of Variation % 16.5 % (11.5-15.5); Red Blood Count 3.57 m/uL (4.00-5.20); White Blood Count* 6.09 K/uL (4.50-11.00)
[2025-03-15 06:34] LABS: Slide Review Reflex No
[2025-03-15 06:44] LABS: Albumin* 3.8 g/dL (3.3-5.0); Chloride* 92 mmol/L (96-114); Potassium* 4.1 mmol/L (3.6-5.1); Sodium* 126 mmol/L (135-149)
[2025-03-15 06:46] LABS: Blood Urea Nitrogen* 37 mg/dL (7-30); Creatinine* 1.5 mg/dL (0.5-1.5); Est. Creatinine Clearance* 24.05; Estimated Glomerular Filt Rate 35 ml/min
[2025-03-15 06:47] LABS: Alanine Aminotransferase* 33 U/L (4-35); Alkaline Phosphatase* 101 U/L (40-150); Aspartate Amino Transferase* 40 U/L (12-35); Bilirubin Total* 0.5 mg/dL (0.1-1.5); Calcium* 8.5 mg/dL (8.4-10.6); Carbon Dioxide* 24 mmol/L (20-32); Glucose* 108 mg/dL (60-115); Magnesium* 1.9 mg/dL (1.5-2.6); Total Protein* 6.3 g/dL (6.0-8.3)
[2025-03-15 06:50] LABS: C Reactive Protein* 1.2 mg/dL (0.5-1.0)
[2025-03-15 06:52] LABS: Anion Gap 10 mEq/L (7-15)
[2025-03-15 06:54] LABS: NT Pro B Type NatriureticPept* 6130 pg/mL
[2025-03-15] MEDS: HYDRALAZINE 25 MG TABLET PO ×3 (09:39→20:41)
[2025-03-15] MEDS: ISOSORBIDE DINITRATE 10 MG TABLET PO ×3 (09:40→20:39)
[2025-03-15] MEDS: allopurinoL 100 MG TABLET 200 MG PO (09:40)
[2025-03-15] MEDS: BUMETANIDE 1 MG TABLET 2 MG PO ×2 (09:40→20:39)
[2025-03-15] MEDS: OMEPRAZOLE 20 MG CAPSULE DR PO (09:41)
[2025-03-15] MEDS: SERTRALINE 100 MG TABLET PO (09:41)
[2025-03-15] MEDS: METOPROLOL SUCCINATE (XL) 50 MG TAB PO (09:41)
[2025-03-15] MEDS: ATORVASTATIN CALCIUM 40 MG TABLET PO (09:42)
[2025-03-15] MEDS: HEPARIN 5,000 UNIT/0.5 ML INJ 5000 UNIT SUBCUT ×2 (09:42→20:42)
[2025-03-15] MEDS: EMPAGLIFLOZIN 10 MG TABLET PO (09:42)
[2025-03-15] MEDS: MAGNESIUM OXIDE 400 MG TABLET PO (09:42)
[2025-03-15] MEDS: SODIUM CHLORIDE 0.9 % (FLUSH) 10 ML SYRINGE 5 ML IVF (09:42)
--- NOTE | 2025-03-15 13:43 | P.IMPN_ITS ---
Assessment and Plan Assessment and plan (1) AMS (altered mental status): Problem comment: -acute confusion could be related to concussion from fall -more broad concerns regarding cognitive decline that is fairly acute in the last 2-3 months worry family (and patient) -underlying mental health treatment makes this harder to sort out. -Head CT and CXR neg. vitals normal. BS normal. No new meds. will obtain MR (r/o infarct or tumor), recommended Neuropysch testing as an outpatient. I've added EKG, troponin, TSH, RPR, Covid testing. -She does have a mild WILLIAM and mild transaminitis. Unclear if this is clinically relevant. - 03/15 MRI head, CT head, and CXR reviewed, negative; EKG from 03/13 reviewed; TSH wnl; troponin I unremarkable; Covid screen negative; RPR pending. MOCA today. Referred for outpatient neuropsych testing. Status: Acute (2) Concussion: Problem comment: -intact neuro exam but the AMS is present and unclear if this is from concussion, med compliance, worsening dementia. Continue to follow. Status: Acute (3) HFrEF (heart failure with reduced ejection fraction): Problem comment: -Admitted to [facility] for acute HFrEF in November 2024 x 8 days Echocardiogram EF 39%, hypokinetic inferior wall, severe MR/TR, moderately reduced systolic RV function. Of note, she also had skin graft done 12/03 for her diabetic foot ulcer. In emergency department hemoglobin 11.7, creatinine 1.3, troponin I 0.02, proBNP 42822. CXR with mild pulmonary edema. Underwent bilateral heart cath on 12/09 demonstrating patent epicardial coronary arteries, mild to moderate pulmonary hypertension PA=59/22, mean 30; PW=20; RV=59/13; RA=11; CO = 5.0 L/min (est Maria Elena). Cardiology started hydralazine, isordil. Stress MRI done and showed ischemia in inferior wall. Her angiogram was neg for obstructive CAD, RHC showed mild/moderate pulmonary HTN, etiology of reduced EF thought to be from CPAP non-adherence in the past few months, she was restarted on her CPAP and recommended close follow up with her sleep medicine team. She was discharged on nocturnal oxygen as well. Status: Chronic (4) Pulmonary HTN: Status: Chronic (5) Personal history of diabetic foot ulcer: Status: Chronic (6) Non compliance with medical treatment: Problem comment: etiology of reduced EF thought to be from CPAP non-adherence in the past few months, she was restarted on her CPAP and recommended close follow up with her sleep medicine team. She was discharged on nocturnal oxygen as well. Status: Acute (7) Fall: Problem comment: Mechanical fall, patient hit her head CT head performed and was negative for acute pathology History of gait instability P.T./OT for evaluation and treatment - possibly needing more PT/OT, possibly outpatient home health; will see how she does tomorrow Status: Acute (8) Laceration of scalp: Problem comment: DOI: March 12 around 5:00 a.m. secondary intention - no sutures Status: Acute (9) Sleep apnea, unspecified: Problem comment: ordered CPAP - not compliant - led to admission for CHF in Nov 30 Status: Chronic (10) Gait instability: Problem comment: History of falls Status: Acute (11) Stage 3b chronic kidney disease (CKD): Problem comment: - BUN mildly elevated. Cr elevated on admission c/w WILLIAM, improving. Baseline Cr 1.3. Status: Acute (12) Type 2 diabetes mellitus without complications: Problem comment: Trulicity, metformin and Jardiance Status: Chronic (13) Essential (primary) hypertension: Status: Chronic (14) Anxiety disorder, unspecified: Status: Chronic (15) Gout: Problem comment: On allopurinol Status: Chronic (16) OAB (overactive bladder): Status: Chronic (17) Anemia: Problem comment: - 03/15 Acute on chronic, normocytic. Suspect hemodilutional. Monitor, recheck in am Status: Acute (18) Hyponatremia: Problem comment: Na 132 yesterday, down to 126 today, mild, asymptomatic. Unclear etiology. Start po fluid restriction. recheck in am. Status: Acute Total Time Spent Total Time Spent: Today I spent 50 minutes seeing the patient, phone call with patient's daughter, reviewing Expanse and EPIC notes/diagnostics/labs, discussing the care plan with our care team that includes social work, PT/OT, pharmacy, RT, care home and documenting my impressions and plan in the medical record. Subjective Time Seen by Provider: 10:47 Date Seen: 03/15/25 Interval history: Jessica tells me she feels much better than she did when she came in. She recalls that it is her daughter's birthday today and she states that she had her eldest daughter on Mother's Day. When I spoke with her daughter this afternoon, Irasema [phone], who tells me she is the primary contact, notes that Jessica contacted her by text today and seemed to forget that it was her daughter's birthday, but remembered it was nurses week (her daughter is also a nurse). She says that Jessica has been struggling with memory and ADLs for 6 months and they wish for her to be in a more structured environment and they think she needs around the clock care, which they are having trouble providing at home. We also discussed the MRI results from yesterday. Exam Narrative: Exam Narrative: General: No acute distress. Awake, alert, oriented to self and holiday, not day of the week. No pallor. No jaundice. Oropharynx: Clear. Mucous membranes moist. Cardiovascular: Regular rate and rhythm. No murmurs, gallops, or rubs. Respiratory: Clear to auscultation bilaterally. No wheezes or crackles. Abdomen: Bowel sounds present. Soft, nondistended, nontender. Extremities: No lower extremity edema. Const: Vital Signs, click to edit/add: Vital Signs - 24 hr 03/14/25 15:31 03/14/25 15:35 03/14/25 19:00 Temperature 97.5 F L 97.6 F Pulse Rate [Pulse Oximeter] 68 68 66 Respiratory Rate 22 22 18 Blood Pressure [Le ft Arm] 143/57 H 115/62 Blood Pressure [Ri ght Arm'] Pulse Oximetry 98 98 Oxygen Delivery Me thod Room Air Room Air 03/14/25 20:43 03/14/25 23:00 03/15/25 03:00 Temperature 97.6 F Pulse Rate [Pulse Oximeter] 74 Respiratory Rate 18 18 Blood Pressure [Le ft Arm] 119/61 Blood Pressure [Ri ght Arm'] 123/67 Pulse Oximetry 95 Oxygen Delivery Me thod Room Air 03/15/25 07:00 03/15/25 07:00 03/15/25 11:00 Temperature 98.0 F 98.2 F Pulse Rate [Pulse Oximeter] 68 68 70 Respiratory Rate 16 16 18 Blood Pressure [Le ft Arm] 126/64 117/53 L Blood Pressure [Ri ght Arm'] Pulse Oximetry 98 97 Oxygen Delivery Me thod Room Air Room Air Labs Labs: Laboratory Results - last 24 hr 03/13/25 03/14/25 03/14/25 18:00 06:35 13:58 WBC RBC Hgb Hct MCV MCH MCHC RDW Coeff of Dez Plt Count Neut % (Auto) Lymph % (Auto) [place] % (Auto) Eos % (Auto) Baso % (Auto) Neut # (Auto) Lymph # (Auto) [place] # (Auto) Eos # (Auto) Baso # (Auto) Abs Immat Gran (auto) Imm/Tot Granulo (auto) VBG pH VBG pCO2 VBG pO2 VBG HCO3 Sodium Potassium Chloride Carbon Dioxide Anion Gap BUN Creatinine Estimated Creat Clear Estimated GFR Glucose Calcium Magnesium Total Bilirubin AST ALT Alkaline Phosphatase Troponin I 0.03 C-Reactive Protein 2.1 H NT-Pro-B Natriuret Pep Total Protein Albumin TSH 2.020 Urine Opiates Screen Negative Ur Oxycodone Screen Negative Urine Methadone Screen Negative Ur Barbiturates Screen Negative U Tricyclic Antidepress Negative Ur Phencyclidine Scrn Negative Ur Amphetamines Screen Negative U Methamphetamines Scrn Negative U Benzodiazepines Scrn Negative Urine Cocaine Screen Negative U Marijuana (THC) Screen Negative Ur Drug Screen Comment See Note SARS-CoV-2 Ag (Rapid) Lab Acknowledgement Test Added 03/14/25 03/14/25 03/15/25 14:10 14:15 05:34 WBC 6.09 RBC 3.57 L Hgb 9.9 L Hct 30.2 L MCV 85 MCH 28 MCHC 33 RDW Coeff of Dez 16.5 H Plt Count 227 Neut % (Auto) 68.5 Lymph % (Auto) 13.5 L [place] % (Auto) 13.1 H Eos % (Auto) 3.6 Baso % (Auto) 0.5 Neut # (Auto) 4.17 Lymph # (Auto) 0.80 L [place] # (Auto) 0.80 Eos # (Auto) 0.22 Baso # (Auto) 0.03 Abs Immat Gran (auto) 0.05 Imm/Tot Granulo (auto) 0.8 VBG pH 7.439 H VBG pCO2 38 L VBG pO2 64.6 H VBG HCO3 26 Sodium 126 L Potassium 4.1 Chloride 92 L Carbon Dioxide 24 Anion Gap 10 BUN 37 H Creatinine 1.5 Estimated Creat Clear 24.05 Estimated GFR 35 Glucose 108 Calcium 8.5 Magnesium 1.9 Total Bilirubin 0.5 AST 40 H ALT 33 Alkaline Phosphatase 101 Troponin I C-Reactive Protein 1.2 H NT-Pro-B Natriuret Pep 6130 Total Protein 6.3 Albumin 3.8 TSH Urine Opiates Screen Ur Oxycodone Screen Urine Methadone Screen Ur Barbiturates Screen U Tricyclic Antidepress Ur Phencyclidine Scrn Ur Amphetamines Screen U Methamphetamines Scrn U Benzodiazepines Scrn Urine Cocaine Screen U Marijuana (THC) Screen Ur Drug Screen Comment SARS-CoV-2 Ag (Rapid) Negative Lab Acknowledgement Test Added
[2025-03-15] MEDS: INSULIN ASPART 100 UNIT/ML SUBCUT (17:57)
--- NOTE | 2025-03-15 18:39 | PC.NURSE ---
End of Shift: Patient pleasant and cooperative. Afebrile. Denies pain. Up to bathroom and chair with SBA, walker and gait belt. Tolerating regular diet with no nausea. 1500 mL fluid restriction.
[2025-03-15 18:57] LABS: Rapid Plasma Reagin (RPR) Non Reactive (Non Reactive)
[2025-03-16] MEDS: MELATONIN 3 MG TABLET PO (00:56)
[2025-03-16 03:00] VITALS: BP 132/67; PULSE 79; RESP 16; TEMP 36.4; O2SAT 96
[2025-03-16 06:10] LABS: Basophils Absolute Auto 0.02 K/uL (0.00-0.30); Basophils Percent Auto 0.3 % (0.0-3.0); Eosinophils Absolute Auto 0.21 K/uL (0.00-0.50); Eosinophils Percent Auto 2.9 % (0.0-7.0); Hematocrit 34.6 % (33.0-51.0); Hemoglobin* 11.2 gm/dL (12.0-16.0); Immature Granulocytes Abs Auto 0.16 K/uL (0.00-0.30); Immature Granulocytes Pct Auto 2.2 %; Lymphocytes Percent Auto 13.1 % (20-44); Mean Corpuscular HGB Conc 32 gm/dL (32-36); Mean Corpuscular Hemoglobin 28 pg (26-34); Mean Corpuscular Volume 86 fL (80-100); Neutrophils Absolute Auto 5.06 K/uL (1.7-7.0); Neutrophils Percent Auto 69.5 % (42.0-72.0); Platelet Count* 261 K/uL (140-440); RDW Coefficient of Variation % 16.6 % (11.5-15.5); Red Blood Count 4.02 m/uL (4.00-5.20); White Blood Count* 7.27 K/uL (4.50-11.00)
[2025-03-16 06:11] LABS: Slide Review Reflex No
[2025-03-16 06:22] LABS: Chloride* 94 mmol/L (96-114)
[2025-03-16 06:23] LABS: Potassium* 3.8 mmol/L (3.6-5.1); Sodium* 133 mmol/L (135-149)
[2025-03-16 06:26] LABS: Anion Gap 11 mEq/L (7-15); Blood Urea Nitrogen* 37 mg/dL (7-30); Calcium* 9.2 mg/dL (8.4-10.6); Carbon Dioxide* 28 mmol/L (20-32); Creatinine* 1.7 mg/dL (0.5-1.5); Est. Creatinine Clearance* 21.22; Estimated Glomerular Filt Rate 30 ml/min; Glucose* 104 mg/dL (60-115)
--- NOTE | 2025-03-16 06:57 | PC.NURSE ---
End of shift report [id number]: VSS. Afebrile. Rates pain a 4-0, denies pain meds at this time. Pt ambulates SBA with walker. Pt is on a 1500 ml fluid restriction. Tolerating regular diet. Pt stated her skin was itchy, filing writer applied lotion with relief. Pt was noted to be restless during the night, sleeping around 0300.?
[2025-03-16 07:00] VITALS: PULSE 78; RESP 16
[2025-03-16 07:45] VITALS: BP 134/67; PULSE 78; RESP 16; TEMP 36.7; O2SAT 94
[2025-03-16] MEDS: EMPAGLIFLOZIN 10 MG TABLET PO (08:57)
[2025-03-16] MEDS: allopurinoL 100 MG TABLET 200 MG PO (08:57)
[2025-03-16] MEDS: MAGNESIUM OXIDE 400 MG TABLET PO (08:58)
[2025-03-16] MEDS: SERTRALINE 100 MG TABLET PO (08:58)
[2025-03-16] MEDS: HYDRALAZINE 25 MG TABLET PO (08:58)
[2025-03-16] MEDS: METOPROLOL SUCCINATE (XL) 50 MG TAB PO (08:58)
[2025-03-16] MEDS: BUMETANIDE 1 MG TABLET 2 MG PO (08:58)
[2025-03-16] MEDS: OMEPRAZOLE 20 MG CAPSULE DR PO (08:58)
[2025-03-16] MEDS: ISOSORBIDE DINITRATE 10 MG TABLET PO (08:59)
[2025-03-16] MEDS: ATORVASTATIN CALCIUM 40 MG TABLET PO (09:07)
[2025-03-16] MEDS: HEPARIN 5,000 UNIT/0.5 ML INJ 5000 UNIT SUBCUT (09:14)
[2025-03-16] MEDS: SODIUM CHLORIDE 0.9 % (FLUSH) 10 ML SYRINGE 5 ML IVF (09:15)
--- NOTE | 2025-03-16 12:28 | P.DS_ITS ---
DS: Providers Provider Time Seen by Provider: 09:45 Date Seen: 03/16/25 Date of admission: 03/13/25 18:33 Primary care physician: Ashutosh Gonzales MD Admitting Clinician: Ally Salinas MD Consults: 03/13/25 18:42 Consult to Occupational Therapy [CONS] Routine Comment: Reason(s) for OT Consult:: Evaluate and Treat Any Restrictions?:: No Restrictions Consult to Physical Therapy [CONS] Routine Comment: Reason(s) for PT Consult:: Evaluate and Treat Any Restrictions?:: No Restrictions Consult to Exec. Creative Director [CONS] Routine Comment: Reason for Consult:: Discharge Planning Needs Attending Physician on discharge: Margarita Gauthier MD Date of Discharge: 03/16/25 DS: Diagnosis Discharge Diagnosis (1) AMS (altered mental status): Status: Acute Problem details: -acute confusion could be related to concussion from fall -more broad concerns regarding cognitive decline that is fairly acute in the last 2-3 months worry family (and patient) -underlying mental health treatment makes this harder to sort out. -Head CT and CXR neg. vitals normal. BS normal. No new meds. will obtain MR (r/o infarct or tumor), recommended Neuropysch testing as an outpatient. I've added EKG, troponin, TSH, RPR, Covid testing. -She does have a mild WILLIAM and mild transaminitis. Unclear if this is clinically relevant. - 03/15 MRI head, CT head, and CXR reviewed, negative; EKG from 03/13 reviewed; TSH wnl; troponin I unremarkable; Covid screen negative; RPR pending. MOCA today. Referred for outpatient neuropsych testing. - 03/16 improving. Will need outpatient neuropsych testing. (2) Concussion: Status: Suspected Problem details: -intact neuro exam but the AMS is present and unclear if this is from concussion, med compliance, worsening dementia. - MS has improved some since admission - F/u with PCP as outpatient (3) HFrEF (heart failure with reduced ejection fraction): Status: Chronic Problem details: -Admitted to [facility] for acute HFrEF in November 2024 x 8 days Echocardiogram EF 39%, hypokinetic inferior wall, severe MR/TR, moderately reduced systolic RV function. Of note, she also had skin graft done 12/03 for her diabetic foot ulcer. In emergency department hemoglobin 11.7, creatinine 1.3, troponin I 0.02, proBNP 63048. CXR with mild pulmonary edema. Underwent bilateral heart cath on 12/09 demonstrating patent epicardial coronary arteries, mild to moderate pulmonary hypertension PA=59/22, mean 30; PW=20; RV=59/13; RA=11; CO = 5.0 L/min (est Maria Elena). Cardiology started hydralazine, isordil. Stress MRI done and showed ischemia in inferior wall. Her angiogram was neg for obstructive CAD, RHC showed mild/moderate pulmonary HTN, etiology of reduced EF thought to be from CPAP non- adherence in the past few months, she was restarted on her CPAP and recommended close follow up with her sleep medicine team. She was discharged on nocturnal oxygen as well. - 03/16 Not in acute exacerbation at present. (4) Personal history of diabetic foot ulcer: Status: Chronic (5) Pulmonary HTN: Status: Chronic (6) Non compliance with medical treatment: Status: Acute Problem details: etiology of reduced EF thought to be from CPAP non-adherence in the past few months, she was restarted on her CPAP and recommended close follow up with her sleep medicine team. She was discharged on nocturnal oxygen as well. (7) Fall: Status: Acute Problem details: Mechanical fall, patient hit her head CT head performed and was negative for acute pathology History of gait instability P.T./OT for evaluation and treatment - possibly needing more PT/OT, possibly outpatient home health; will see how she does tomorrow - 03/16 PT and OT recommend home health PT with PT to assess for OT. Patient could also use home care assistance for bathing as she resists family's attempts to help her with hygeine. (8) Laceration of scalp: Status: Acute Problem details: DOI: March 12 around 5:00 a.m. secondary intention - no sutures, keep wound clean and dry (9) Sleep apnea, unspecified: Status: Chronic Problem details: ordered CPAP - not compliant - led to admission for CHF in Nov 30 (10) Gait instability: Status: Acute Problem details: History of falls - PT OT evaluated, recommending Home health, which I have ordered. (11) Stage 3b chronic kidney disease (CKD): Status: Acute Problem details: - Cr stable. Looking back at her past labs available here, and in the context of her recent hospitalization for heart failure, I believe this is likely her new baseline after being started on several medications for heart failure. Cr is stable. F/u with PCP as outpatient. (12) Type 2 diabetes mellitus without complications: Status: Chronic Problem details: Trulicity, metformin and Jardiance (13) Essential (primary) hypertension: Status: Chronic (14) Anxiety disorder, unspecified: Status: Chronic (15) Gout: Status: Chronic Problem details: On allopurinol (16) OAB (overactive bladder): Status: Chronic (17) Anemia: Status: Acute Problem details: - 03/15 Acute on chronic, normocytic. Suspect hemodilutional. Monitor, recheck in am - 03/16 Hgb stable, increased (11.2) (18) Hyponatremia: Status: Acute Problem details: - 03/15 Na 132 yesterday, down to 126 today, mild, asymptomatic. Unclear etiology. Start po fluid restriction. recheck in am. - 03/16 Na 133 today. Improved, stable. DS: Summary Time Spent with Patient Time attestation: Total time spent providing and/or coordinating discharge services: Today I spent 60 minutes seeing the patient, discussing results and plans for discharge with the patient, her , and her daughter, Irasema, reviewing Expanse and EPIC notes/diagnostics/labs, discussing the care plan with our care team that includes social work, PT/OT, pharmacy, RT, usp and documenting my impressions and plan in the medical record. Exam Narrative: Exam Narrative: General: No acute distress. Awake, alert, oriented x3. No pallor. No jaundice. Right frontal head lac is hemostatic, scabbed over, without induration or fluctuance. Cardiovascular: Regular rate and rhythm. No murmurs, gallops, or rubs. Respiratory: Clear to auscultation bilaterally. No wheezes or crackles. Abdomen: Bowel sounds present. Soft, nondistended, nontender. Extremities: No lower extremity edema. Const: Vital Signs, click to edit/add: Vital Signs - 24 hr 03/15/25 15:00 03/15/25 15:00 03/15/25 19:00 Temperature 98.0 F 97.6 F Pulse Rate [Pulse Oximeter] 70 70 75 Respiratory Rate 16 16 20 Blood Pressure [Le ft Arm] 125/50 L 121/54 L Blood Pressure [Ri ght Arm'] Pulse Oximetry 97 98 Oxygen Delivery Me thod Room Air Room Air 03/15/25 22:59 03/15/25 23:00 03/16/25 03:00 Temperature 98.4 F 97.6 F Pulse Rate [Pulse Oximeter] 75 97 79 Respiratory Rate 20 18 16 Blood Pressure [Le ft Arm] 120/64 132/67 Blood Pressure [Ri ght Arm'] Pulse Oximetry 97 96 Oxygen Delivery Me thod Room Air Room Air 03/16/25 07:45 Temperature 98.1 F Pulse Rate [Pulse Oximeter] 78 Respiratory Rate 16 Blood Pressure [Le ft Arm] Blood Pressure [Ri ght Arm'] 134/67 Pulse Oximetry 94 Oxygen Delivery Me thod Room Air DS: Data Data Completed and Pending Completed studies during hospitalization: IV 25 EKG: Sinus rhythm me a with first-degree AV block, 74 beats per minute. Right bundle-branch block. Anteroseptal infarct, age undetermined. T-wave abnormality, consider inferior lateral ischemia. Ordering Physician: Russ Sanches M.D. Date of Service: 03/13/25 Procedure(s): CT head/brain wo con Accession Number(s): [id number] cc: Russ Sanches M.D.; Ashutosh Gonzales M.D.~ For Patients: As a result of the Century Cures Act, medical imaging exams and procedure reports are released immediately into your electronic medical record. You may view this report before your referring provider. If you have questions, please contact your health care provider. INDICATION: FELL LAST PM, LACERATION AND LOC COMPARISON: CT head on August 14, 2022 and prior exams TECHNIQUE: CT of the head without contrast. FINDINGS: Motion degraded exam. Brain Parenchyma: Similar-appearing global cortical involutional changes. No acute infarct, acute intracranial hemorrhage, mass effect, or midline shift. Periventricular and supraventricular white matter hypodensity, suggestive of chronic microvascular ischemic changes. Ventricles: Stable mild ventricular enlargement, commensurate with the degree of cortical involutional changes and sulcal prominence. Extra-axial Spaces: No abnormal fluid collection. Paranasal sinuses: No significant mucosal thickening. Similar appearing mucosal thickening at the alveolar recess of left maxillary sinus, seen on prior study in 2021 Orbits: Unremarkable Mastoid Sinuses: Unremarkable Cranium: No acute fracture Soft tissues: Suspected small right frontal laceration and scalp contusion. No underlying calvarial fracture. IMPRESSION: 1. Motion degraded exam. 2. No CT evidence of an acute intracranial process. 3. Suspected small right frontal laceration and scalp contusion. No underlying calvarial fracture. Please note that all CT scans at this facility use dose modulation, iterative reconstruction, and/or weight-based dosing when appropriate to reduce radiation dose to as low as reasonably achievable. Dictated by Chapincito Gutierrez MD @ 03/13/2025 4:05:45 PM (Electronically Signed) Ordering Physician: Renee Obrien M.D. Date of Service: 03/13/25 Procedure(s): XR chest 1V portable Accession Number(s): [id number] cc: Renee Obrien M.D.; Ashutosh Gonzales M.D.~ For Patients: As a result of the Cures Act, medical imaging exams and procedure reports are released immediately into your electronic medical record. You may view this report before your referring provider. If you have questions, please contact your health care provider. INDICATION: History congestive heart failure TECHNIQUE: Chest radiograph 1 view COMPARISON: 12/03/2024 FINDINGS: The sensitivity and specificity of the exam are moderately limited by the patient`s body habitus. Mediastinum: The mediastinum is normal in appearance. Moderate, stable cardiomegaly is noted. Lung: Both lungs are unremarkable in appearance. No sign of pleural effusion seen. No pneumothorax is identified. Bone and Soft tissue: Unremarkable for age. IMPRESSION: 1. Moderate, stable cardiomegaly is noted. Dictated by Hernan Awan MD @ 03/13/2025 6:27:55 PM Dictated by: Hernan Awan MD @ 03/13/2025 18:27:58 (Electronically Signed) Ordering Physician: Alysa Chu M.D. Date of Service: 03/14/25 Procedure(s): MR head/brain wo con Accession Number(s): [id number] cc: Alysa Chu M.D.; Ashutosh Gonzales M.D.~ For Patients: As a result of the Cures Act, medical imaging exams and procedure reports are released immediately into your electronic medical record. You may view this report before your referring provider. If you have questions, please contact your health care provider. INDICATION: AMS TECHNIQUE: Multiplanar multisequence MRI brain without contrast. COMPARISONS: Prior day CT Brain. FINDINGS: Moderate diffuse parenchymal volume loss with commensurate ex vacuo dilatation of the ventricles and sulci. No midline shift. No acute hemorrhage. Confluent periventricular and patchy subcortical white foci of T2-FLAIR hyperintensity. No convincing evidence of diffusion restriction. The apparent mild gradient of posterior cerebral diffusion-weighted hyperintensity is symmetric and compatible with magnetic field inhomogeneity artifact. No ADC hypointensity. No abnormal parenchyma susceptibility artifact. Redemonstrated chronic moderate mucosal thickening in the left maxillary sinus with associated sinus volume loss. Redemonstrated right frontal scalp edema. IMPRESSION: 1. No acute intracranial hemorrhage, infarct, or mass effect. 2. Moderate diffuse parenchymal volume loss. 3. Moderate patchy cerebral white matter hyperintensity, which is nonspecific, but compatible with chronic small vessel ischemic changes. Dictated by Julio Fletcher MD @ 03/14/2025 4:58:33 PM (Electronically Signed) Labs on day of discharge: Labs from last 24 hours 03/16/25 03/14/25 06:04 06:35 WBC 7.27 RBC 4.02 Hgb 11.2 L Hct 34.6 MCV 86 MCH 28 MCHC 32 RDW Coeff of Dez 16.6 H Plt Count 261 Neut % (Auto) 69.5 Lymph % (Auto) 13.1 L [place] % (Auto) 12.0 H Eos % (Auto) 2.9 Baso % (Auto) 0.3 Neut # (Auto) 5.06 Lymph # (Auto) 1.00 [place] # (Auto) 0.90 Eos # (Auto) 0.21 Baso # (Auto) 0.02 Abs Immat Gran (auto) 0.16 Imm/Tot Granulo (auto) 2.2 Sodium 133 L Potassium 3.8 Chloride 94 L Carbon Dioxide 28 Anion Gap 11 BUN 37 H Creatinine 1.7 H Estimated Creat Clear 21.22 Estimated GFR 30 Glucose 104 Calcium 9.2 RPR Screen Non Reactive Discharge Plan Discharge Disposition: Home, Self-Care Date of Admission: 03/13/25 18:33 Attending Provider on Discharge: Margarita Gauthier Primary Care Provider: Ashutosh Gonzales Condition: Stable Anticipated Discharge Date/Time: 03/16/25 13:30 Discharge Medications: Continued Jardiance 10 mg tablet 10 mg PO QAM esomeprazole magnesium 20 mg capsule,delayed release(DR/EC) 20 mg PO DAILY Eye Multivitamin 2,148 mcg-113 mg-45 mg-17.4mg tablet 1 tab PO BID Rx Instructions: administer with AM and PM meals magnesium aspart,citrate,oxide 400 mg magnesium capsule 400 mg PO DAILY allopurinol 200 mg tablet 200 mg PO DAILY isosorbide dinitrate 10 mg tablet 10 mg PO TID bumetanide 2 mg tablet 2 mg PO BID hydralazine 25 mg tablet 25 mg PO TID Gemtesa 75 mg tablet 75 mg PO DAILY sertraline 100 mg tablet 100 mg PO QAM atorvastatin 40 mg tablet 40 mg PO HS Patient Comments: TAKE ONE TABLET BY MOUTH ONE TIME DAILY AT BEDTIME metoprolol succinate 50 mg tablet extended release 24 hr 50 mg PO DAILY Patient Comments: TAKE ONE TABLET BY MOUTH ONE TIME DAILY (DME) OneTouch Verio test strips Strip MISCELLANEOUS Patient Comments: USE TO TEST BLOOD SUGARS TWICE DAILY metformin 500 mg tablet extended release 24 hr 500 mg PO BIDWM Trulicity 1.5 mg/0.5 mL pen injector 1.5 mg SUBCUT .weekly Patient Comments: Inject 1.5mg (contents of 1 pen) by subcutaneous route once weekly. Discharge Orders: Discharge Order (Routine); Ordered 03/16/25 Ordered By: Margarita Gauthier Patient Education: Altered Mental Status (GEN), Fall Prevention (DC) Additional Instructions: Keep wound clean and dry. Okay to leave open to air or use Vaseline on the wound. Home health for PT, PT to assess need for OT, DIRECTOR OF INFECTION PREVENTION. A referral has been sent to [facility] Rayo, PhD in [place] for further neuropsychiatric testing with a request that results be sent to your primary care provider, Dr. Gonzales. Activity Level: Use Walker Discharge Diet: Regular Follow Up Appointments: [facility]on Rayo Phd [Other] (79 y/o with cognitive decline, personality changes and recent falls. Hospitalized at [facility]. Medically cleared for acute findings. MRI, labs, etc) Ashutosh Gonzales MD [Primary Care Provider] - (Pt already has a previously scheduled appt on 03/17 ) Forms: [employer] Info Instructions
--- NOTE | 2025-03-16 17:51 | PC.NURSE ---
Patient discharged to home with her . Plans/orders in place for patient to initiate care for home health. Patient also has information for private home health aids. PT and instructed to call the unit if they haven't received a call from social work by Monday. Patient has follow up appointment tomorrow with her primary care provider. Patient concerned about how billing will work for observation stay. Card given for patient advocate number if they have questions going forward.
--- NOTE | 2025-03-17 12:21 | PC.SOCIAL ---
Addendum entered by RICO Decker 03/18/25 16:17: Discharge planning: [facility] can accept the pt for services. Social work to follow-up as needed. Original Note: Discharge planning: A referral for home care services was faxed to [facility] today at fax number #[phone]. Social work to follow-up as needed.
== END 2025-03-16 15:09 | disposition home or self-care (01) ==
LOC: ED 18:07 → MEDSURG 18:37
PROVIDERS: Family Medicine; Admitting Provider Student in an Organized Health Care Education/Training Program; Emergency Provider Family Medicine; PCP Family Medicine; Visit Provider Student in an Organized Health Care Education/Training Program
DX: R41.82 Altered mental status, unspecified (principal); S06.0XAA Concussion with loss of consciousness status unknown, initial encounter; S01.01XA Laceration without foreign body of scalp, initial encounter; D64.9 Anemia, unspecified; E87.1 Hypo-osmolality and hyponatremia; W19.XXXA Unspecified fall, initial encounter; Z91.199 Patient's noncompliance with other medical treatment and regimen due to unspecified reason; E11.22 Type 2 diabetes mellitus with diabetic chronic kidney disease; I12.9 Hypertensive chronic kidney disease with stage 1 through stage 4 chronic kidney disease, or unspecified chronic kidney disease; I13.10 Hypertensive heart and chronic kidney disease without heart failure, with stage 1 through stage 4 chronic kidney disease, or unspecified chronic kidney disease; I50.20 Unspecified systolic (congestive) heart failure; N18.32 Chronic kidney disease, stage 3b; N17.9 Acute kidney failure, unspecified; Z79.85 Long-term (current) use of injectable non-insulin antidiabetic drugs; R74.01 Elevation of levels of liver transaminase levels; Z79.84 Long term (current) use of oral hypoglycemic drugs; E78.5 Hyperlipidemia, unspecified; G47.30 Sleep apnea, unspecified; R26.81 Unsteadiness on feet; I27.20 Pulmonary hypertension, unspecified; M10.9 Gout, unspecified; F41.9 Anxiety disorder, unspecified; N32.81 Overactive bladder; M17.11 Unilateral primary osteoarthritis, right knee; I44.0 Atrioventricular block, first degree; I45.10 Unspecified right bundle-branch block; R68.89 Other general symptoms and signs; Z91.81 History of falling; R29.6 Repeated falls; Z91.89 Other specified personal risk factors, not elsewhere classified; Z86.31 Personal history of diabetic foot ulcer; Z86.79 Personal history of other diseases of the circulatory system; Z87.891 Personal history of nicotine dependence
CPT/HCPCS: 36415; 70450; 70551; 71045; 80048; 80053; 80306; 81001; 82803; 82962; 83735; 83880; 84443; 84484; 85025; 85027; 86140; 86592; 87086; 87426; 87493; 93005; 96372; 97116; 97161; 97165; 97530; 97535; 99284; 99285; A9270; G0378; J1644

== ENCOUNTER 2025-04-17 20:05 | Outpatient (CLI) | payer MEDICARE, BC, SELFPAY | END 2025-04-17 20:06 | disposition home or self-care (01) | LOC: AMB 04-18 10:54 | PROVIDERS: PCP Family Medicine; Visit Provider Emergency Medicine Emergency Medical Services | DX: R53.1 Weakness (principal); R60.9 Edema, unspecified; R63.5 Abnormal weight gain | CPT/HCPCS: A0425; A0429 ==

== ENCOUNTER 2025-04-17 20:28 | Emergency (ER) | payer MEDICARE, BC, SELFPAY ==
--- OUTSIDE RECORDS SUMMARY | 2014-03-07 19:00 | XMS_ITS | Continuity of Care Document ---
Author Organization [facility] Address [address] [address] [place] [address] Phone Care Team Providers Care Packaging Supervisor Name Role Phone Tiffany PENN, Lay Jordan Unavailable Unavaila ble Procedures Procedure Date Ugi Endo; W/bx 1/mx Init Hosp-da E&m Mod Severity 4 Advance Directives Directive Yes / No Effective Date File Name No Information Encounters Encounter Description Practice Location Reason(s) For Visit Diagnoses Date Provider Providers Copied on Encounter [facility], [address] [address], [place], [place], [id number], [place] tel:[phone] [facility] No Information 4 Tiffany Jordan. [address] [place] [address], [address], [id number] , [place]. [phone] Referring Provider: [place], [address] [place] [address], [address] . tel:[phone] Init Hosp-da E&m Mod Severity [facility], [address] [address], [place], [place], [id number], [phone] [facility] No Information 4 Merry Robert. [facility] [address], [address], [id number] , [place]. [phone] Referring Provider: [place], [address] [place] [address], [address] . tel:[phone] Family History Family Member Type Diagnosis Age At Onset No Information Payers Payer name Insurance type Covered green party ID Authoriza tiemi(s) Medicare NGS MB [id number] [facility] [id number] Social History Type Description Quantity Date Captured [...]
--- OUTSIDE RECORDS SUMMARY | 2014-03-07 19:00 | XMS_ITS | Continuity of Care Document ---
Author Organization [facility] Address [address] [address] [place] [address] Phone Care Team Providers Care Enterprise Integration Architect Name Role Phone Tiffany PENN, Lay Jordan Unavailable Unavaila ble Procedures Procedure Date Ugi Endo; W/bx 1/mx Init Hosp-da E&m Mod Severity 4 Advance Directives Directive Yes / No Effective Date File Name No Information Encounters Encounter Description Practice Location Reason(s) For Visit Diagnoses Date Provider Providers Copied on Encounter [facility], [address] [address], [place], [place], [id number], [place] tel:[phone] [facility] No Information 4 Tiffany Jordan. [address] [place] [address], [address], [id number] , [place]. [phone] Referring [place]: [place], [address] [place] [address], [address] . tel:[phone] Init Hosp-da E&m Mod Severity [facility], [address] [address], [place], [place], [id number], [phone] [facility] No Information 4 Merry Robert. [facility], [address], [id number] , [place]. [phone] Referring [place]: [place], [address] [place] [address], [address] . tel:[phone] Family History Family Member Type Diagnosis Age At Onset No Information Payers Payer name Insurance type Covered green party ID Authoriza tiemi(s) Medicare NGS MB [id number] [facility] [id number] Social History Type Description Quantity Date Captured [...]
--- OUTSIDE RECORDS SUMMARY | 2025-04-17 20:31 | XMS_ITS | Clinical Summary ---
Author Organization [facility] Address [address] [place] [address] Care Team Providers Care Mechanical Commissioning Engineer Name Role Phone Elsewhere, Pcp Primary Care Provider Unavailabl e Source Comments Patient records contain information from all sites at [facility]. For routine questions regarding patient records, call [phone] during business hours, M-F 8:00 AM - 5:00 PM Central Time. 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 / ProviderAmy M.D. - 04/27/2017 Exam: [place] Mammo Screening w/ CADD Indication: screening Comparison: [...] Recently Relevant to Health Maintenance Insurance MEDICARE [facility] Care Teams Mechanical Commissioning Engineer Relationship Specialty Start Date End Date Elsewhere, Pcp PCP - General Family Medicine 01/30/19
--- OUTSIDE RECORDS SUMMARY | 2025-04-17 20:31 | XMS_ITS | Clinical Summary ---
Author Organization [facility] Address [address] [place] [id number] Care Team Providers Care Dyno Technician Name Role Phone Ashutosh Gonzales MD Primary Care Provider Qiana Huntley RN Unavailable Karrie Duarte RD Unavailable [facility], [place] Unavailable [facility] [place] Unavailable Allergies Active Allergy Reactions Criticality Noted Date Comments Amoxicillin Rash 04/13/2007 Cat Dander Other - Describe In Comment Field 02/05/2018 Losartan Other - Describe In Comment Field 07/28/2022 Increased Creatinine and potassium Medications metoprolol succinate (TOPROL XL) 50 mg sustained-release tabletIndications :Chronic heart failure with preserved ejection fraction (HC) Take 1 Tablet (50 mg) by mouth once daily. 90 Tablet 3 024 Active CPAPIndications:O bstructive sleep apnea CPAP machine for home use at pressure 14 cmw, full face mask x1/3month with a full face cushion x1/mo 1 Each 11 024 Active allopurinoL (ZYLOPRIM) 100 mg tabletIndications :Hyperuricemia Take 2 Tablets (200 mg) by mouth once daily. 90 Tablet 3 025 Active ketoconazole 2 % creamIndications: Intertrigo Apply thinly to the affected areas of the groin folds ( yeast rash) twice daily for 2-3 weeks, then use as needed 60 g Active blood sugar diagnostic (Cartago SoftwareTouch Verio test strips) stripIndications: Diabetes mellitus without complication (HC) TEST TWICE DAILY. 200 Each 3 Active lancetsIndication s:Diabetes mellitus without complication (HC) As directed. Test one time per day. 100 Each Active hydrALAZINE 50 mg tabletIndications :Acute HFrEF (heart failure with reduced ejection fraction) (HC) Take 1 Tablet (50 mg) by mouth three times daily. 90 Tablet Active Trulicity 1.5 mg/0.5 mL subcutaneous penIndications:Di abetes mellitus without complication (HC) Inject 1.5 mg subcutaneous once weekly. 6 mL Active sertraline 100 mg tabletIndications :Obsessive-compul sive disorder, unspecified type Take 1 Tablet (100 mg) by mouth once daily in the morning. 90 Tablet 025 Active acetaminophen 500 mg tabletIndications :Pain Take 2 Tablets (1,000 mg) by mouth every 8 hours if needed for Pain. Max acetaminophen dose: 4000mg in 24 hrs. 200 Tablet Active triamcinolone 0.1 % ointmentIndicatio ns:Chronic eczema Apply topically to affected area(s) two times daily. Not to exceed 14 days without interruption on anyone location. 80 g 025 Active Cetirizine (ZyrTEC) 10 mg capIndications:Pr uritus 1 tablet p.o. daily. 30 Capsule 025 Active cyanocobalamin 1,000 mcg/mL injectionIndicati ons:Vitamin B12 deficiency Inject 1 mL (1,000 mcg) intramuscular every 4 weeks. 4 mL 025 Active empagliflozin (Jardiance) 10 mg tabletIndications :Diabetes mellitus without complication (HC) TAKE 1 TABLET BY MOUTH DAILY 30 Tablet Active magnesium oxide 400 mg tabletIndications :Low magnesium level TAKE 1 TABLET BY MOUTH DAILY 28 Tablet 12 Active isosorbide dinitrate 10 mg tabletIndications :Acute HFrEF (heart failure with reduced ejection fraction) (HC) Take 1 Tablet (10 mg) by mouth three times daily. 270 Tablet 1 025 Active vit-min eye [id number] mg (PreserVision AREDS) capsuleIndication s:Nutritional deficiency TAKE 1 TABLET BY MOUTH TWICE DAILY 180 Capsule 3 025 Active loperamide 2 mg tabletIndications :Chronic diarrhea Take 4mg by mouth with 1st loose stool, then 2mg with each subsequent loose stool. Max 16 mg in 24 hrs 48 Tablet 1 025 Active bumetanide 2 mg tabletIndications :Stage 3a chronic kidney disease (HC) 2 tablets (4 mg) p.o. twice daily for 6 days, and then back to 1 tablet twice daily. 56 Tablet 12 025 Active Vit A,C,D-Jwgc-Baawau (PRESERVISION AREDS) [id number],[id number] husy-bz-weby cap Take 1 tablet twice daily 90 Cap 3 017 2024 Discontinued magnesium oxide,aspartate,c itr 400 mg magnesium cap Take 400 mg by mouth once daily. 0 021 2024 Discontinued(* Med complete/Regim en complete/Level of care change) atorvastatin (LIPITOR) 40 mg tabletIndications :Mixed hyperlipidemia Take 1 Tablet (40 mg) by mouth at bedtime. 90 Tablet 3 024 2024 Discontinued(* Med complete/Regim en complete/Level of care change) metFORMIN (GLUCOPHAGE XR) 500 mg Extended-Release tabletIndications :Diabetes mellitus without complication (HC) Take 1 Tablet (500 mg) by mouth two times daily with meals. 180 Tablet 1 024 2024 Discontinued(* Allergic/Adver se Rxn/Side Effects) oxygen-air delivery systems (HOME OXYGEN)Indication s:Acute HFrEF (heart failure with reduced ejection fraction) (HC),Obstructive sleep apnea [The details of the medication are not available because there are pending changes by a home health clinician.] 1 Each 025 2024 Discontinued(* Med complete/Regim en complete/Level of care change) Cetirizine (ZyrTEC) 10 mg cap Take 10 mg by mouth once daily if needed. 025 2024 Discontinued(R eorder (E-cancel not sent)) isosorbide dinitrate (ISORDIL) 10 mg tabletIndications :Acute HFrEF (heart failure with reduced ejection fraction) (HC) Take 1 Tablet (10 mg) by mouth three times daily. 90 Tablet 11 025 2024 Discontinued(* Availability/F ormulary change/Cost of medication) bumetanide (BUMEX) 2 mg tabletIndications :Stage 3a chronic kidney disease (HC) Take 1 Tablet (2 mg) by mouth two times daily. 025 2024 Discontinued empagliflozin (Jardiance) 10 mg tabletIndications :Diabetes mellitus without complication (HC) Take 1 Tablet (10 mg) by mouth once daily. 30 Tablet 025 2024 Discontinued vibegron 75 mg tabletIndications :Urinary incontinence, unspecified type Take 1 Tablet (75 mg) by mouth once daily. Swallow tablet whole. May be crushed and mixed in applesauce. Follow with glass of water. 30 Tablet 1 025 2024 Discontinued(* Med ineffective) sertraline 100 mg tabletIndications :Obsessive-compul sive disorder, unspecified type Take 1 Tablet (100 mg) by mouth once daily in the morning. 90 Tablet 3 025 2024 Discontinued(* Availability/F ormulary change/Cost of medication) bumetanide 2 mg tabletIndications :Stage 3a chronic kidney disease (HC) TAKE 1 TABLET BY MOUTH TWICE DAILY 56 Tablet 12 025 2024 Discontinued(* Medication adjustment) Hospital, Clinic, or Other Facility Administered Medication Ordered Dose Route Frequency Start Date End Date Status cyanocobalamin (VITAMIN B12) 1,000 mcg/mL injection 1,000 mcgIndications:Vitam in B12 deficiency 1000 mcg IM Q 4 WEEKS (28 DAYS) 10/28/2024 09/28/2025 Active Active Problems Problem Noted Date Diagnosed Date Dysplasia of trochlea of femur 03/25/2025 Gout 03/25/2025 Overview (03/25/2025): On allopurinol OAB (overactive bladder) 03/25/2025 Osteoarthritis of right knee 03/25/2025 Overview (03/25/2025): moderate Personal history of diabetic foot ulcer 03/25/20 Pulmonary hypertension 03/25/2025 Overview (03/25/2025): AI Summary: As of 03/16/25: The patient had a history of mild to moderate pulmonary hypertension, first noted on 12/17/2024, with an elevated wedge pressure of 20 mmHg. Cardiac catheterization on 12/09/2024 showed patent coronary arteries and confirmed mild to moderate pulmonary hypertension; the etiology of reduced ejection fraction was attributed to CPAP non-adherence. The patient was restarted on CPAP therapy and recommended for close follow-up with the sleep medicine team. 03/13/25: BP 134/67 09/12/24: A1c 5.6 % OF TOTAL HGB 06/01/21: ESR 9 On meds: atorvastatin, bumetanide, hydrALAZINE, isosorbide dinitrate, metoprolol succinate Recent encounter dx: 03/13/25: Discharged Inpatient - [facility]U (from [facility]) 03/05/25: Appointment - [facility] Recent notes: 03/16/25: Discharge Summary Note - Note by Margarita Gauthier (from [facility]) ... [+] Her angiogram was neg for obstructive CAD, RHC showed mild/moderate pulmonary HTN, etiology of reduced EF thought to be from CPAP non-adherence in the past few months, she was restarted on her CPAP and recommended close follow up with her sleep medicine team. ... [+] Underwent bilateral heart cath on 12/09 demonstrating patent epicardial coronary arteries, mild to moderate pulmonary hypertension PA=59/22, mean 30; PW=20; RV=59/13; RA=11; CO = 5.0 L/min (est Maria Elena). ... [-] (5) Pulmonary HTN: 03/13/25: History & Physical Note - Note by Pinky Salinas MD (from [facility]) ... [+] Underwent bilateral heart cath on 2 demonstrating patent epicardial coronaryarteries, mild to moderate pulmonary hypertension. 03/13/25: H&P - PINKY PATHAK MD, 03/13/2025 by ASHUTOSH GONZALES ... [+] Underwent bilateral heart cath on 2 demonstrating patent epicardial coronary arteries, mild to moderate pulmonary hypertension. 03/05/25: Progress Notes by MÓNICA Perez ... [+] Angiogram negative for obstructive CAD, RHC with mild/moderate pulmonary HTN. 01/13/25: Progress Notes by Ashutosh Gonzales MD ... [+] Obstructive sleep apnea, reports doing well on CPAP, with pulmonary hypertension on recent right heart cath. HFrEF (heart failure with reduced ejection fract ion) 01/13/2025 Overview (03/25/2025): -Admitted to [facility] for acute HFrEF in November 2024 x 8 days Echocardiogram EF 39%, hypokinetic inferior wall, severe MR/TR, moderately reduced systolic RV function. Of note, she also had skin graft done 12/03 for her diabetic foot ulcer. In emergency department hemoglobin 11.7, creatinine 1.3, troponin I 0.02, proBNP 14138. CXR with mild pulmonary edema. Underwent bilateral heart cath on 12/09 demonstrating patent epicardial coronary arteries, mild to moderate pulmonary hypertension PA=59/22, mean 30; PW=20; RV=59/13; RA=11; CO = 5.0 L/min (est Maria Elena). Cardiology started hydralazine, isordil. Stress MRI done and showed ischemia in inferior wall. Her angiogram was neg for obstructive CAD, RHC showed mild/moderate pulmonary HTN, etiology of reduced EF thought to be from CPAP non-adherence in the past few months, she was restarted on her CPAP and recommended close follow up with her sleep medicine team. She was discharged on nocturnal oxygen as well. - 03/16 Not in acute exacerbation at present. Skin cancer 12/23/2024 Overview (12/23/2024): - 2013, Right latter-day, BCC, MOHS Diabetes mellitus type 2, noninsulin dependent 0 12/03/2024 Severe mitral regurgitation 12/03/2024 Severe tricuspid regurgitation 12/03/2024 Venous stasis ulcer of left calf 09/12/2024 Stage 3a chronic kidney disease 07/20/2023 Overview (03/25/2025): - Cr stable. Looking back at her past labs available here, and in the context of her recent hospitalization for heart failure, I believe this is likely her new baseline after being started on several medications for heart failure. Cr is stable. F/u with PCP as outpatient. AI Summary: As of 12/25/24: The patient has stage 3a chronic kidney disease (CKD), likely secondary to multifactorial etiology including cardiorenal syndrome and decreased forward flow from low left ventricular function. Generalized edema and proteinuria are present, prompting initiation of bumetanide on 12/17/2024. The patient's CKD was first documented on 07/20/2023. 01/09/25: Cr 1.63 mg/dL 01/09/25: GFR 32 mL/min/1.73m2 01/09/25: BUN 42 mg/dL On meds: bumetanide, empagliflozin, metoprolol succinate Recent encounter dx: 01/09/25: Support OP Encounter - [facility] 01/09/25: Appointment - [facility] 01/07/25: Support OP Encounter - [facility] 01/05/25: Support OP Encounter - [facility] 12/25/24: HOV - [facility] Recent notes: 12/17/24: Progress Notes - Nursing Notes by Ashutosh Gonzales MD ... [+] ? Stage 3a chronic kidney disease (HC) N18.31 12/10/24: Discharge Summary by Naida Dumont MD ... [+] Stage 3a chronic kidney disease (HC) 12/06/24: Progress Notes by Mehrdad Dave MD ... [-] Stage 3a chronic kidney disease Lipodermatosclerosis of both lower extremities 0 11/26/2020 Sensorineural hearing loss, bilateral 03/17/2020 Overview (02/04/2022): Hearing aides Iron deficiency anemia 12/13/2019 Positive for macroalbuminuria 12/13/2019 RESHMA AHI- 52 FFM heated hose 09/17/20 History of hoarding disorder 08/16/2018 Adenomatous colon polyp 06/15/2018 Overview (09/20/2023): Colonoscopy 06/2018 polyp, repeat in 5 years Colonoscopy 09/2023 multiple large polyps, repeat in 3 years History obsessive-compulsive disorder 09/19/2017 Gait instability 08/18/2017 Overview (03/25/2025): History of falls - PT OT evaluated, recommending Home health, which I have ordered. Vertigo 08/18/2017 Basal cell carcinoma of face 07/03/2014 Actinic keratosis 05/05/2014 Seborrheic keratosis 05/05/2014 Anxiety 03/06/2014 Overview (03/06/2014): Started on paxil 02/2014 Vitamin B12 deficiency 06/04/2012 Unspecified essential hypertension 04/13/2007 Mixed hyperlipidemia 04/13/2007 MCI (mild cognitive impairment) Resolved Problems Problem Noted Date Diagnosed Date Resolved Date Anemia 03/25/2025 04/01/2025 Overview (03/25/2025): - 03/15 Acute on chronic, normocytic. Suspect hemodilutional. Monitor, recheck in am - 03/16 Hgb stable, increased (11.2) Facial trauma 03/25/2025 04/01/2025 History of congestive heart failure 03/25/2025 04/01/2025 Infection due to severe acut e respiratory syndrome coronavirus 2 (SARS-CoV-2) 03/25/202503/07 Laceration of scalp 03/25/2025 04/01/20 Overview (03/25/2025): DOI: March 12 around 5:00 a.m. secondary intention - no sutures, keep wound clean and dry Non compliance with medical treatment 03/25/2025 04/01/2025 Overview (03/25/2025): etiology of reduced EF thought to be from CPAP non-adherence in the past few months, she was restarted on her CPAP and recommended close follow up with her sleep medicine team. She was discharged on nocturnal oxygen as well. Polyarthritis 03/25/2025 04/01/2025 Overview (03/25/2025): AI Summary: As of 02/17/25: The patient had a history of gout, diagnosed in the left second toe and left first MTP joint during a hospital stay in 12/2024. Treatment included allopurinol (started 12/17/2024 and 01/13/2025), prednisone (started on multiple occasions, including 12/08/2024 and 02/17/2025), and Lasix 20mg (12/17/2024). The patient's daughter mentioned a possible link between gout and the patient's chronic vertigo, although the patient reported no history of clinical gouty arthropathy. 02/17/25: Uric acid (Urate) 4.4 mg/dL On meds: allopurinol, predniSONE Recent encounter dx: 03/07/23: Appointment - [facility] Recent notes: 02/17/25: Progress Notes by Ashutosh Gonzales MD ... [+] Acute gout left first MTP joint: Prednisone 20 mg daily for 5 days. 01/13/25: Progress Notes by Ashutosh Gonzales MD ... [+] She was started on allopurinol after episode of gout during her hospital stay. ... [+] Gout, status post recent start of allopurinol: Uric acid level was 8.0 in the hospital. 12/17/24: Progress Notes - Nursing Notes by Ashutosh Gonzales MD ... [-] Evaluated by podiatry who favored diagnosis of gout. ... [+] Also started on 200 mg daily of allopurinol for gout. ... [-] Gout: Diagnosed left second toe while in hospital. 12/17/24: H&P by KIMMIE Perez ... [+] She was sent home on Lasix 20 mg for concern of worsening hyperuricemic gout. 12/10/24: Discharge Summary by Naida Dumont MD ... [+] Podiatry saw and favored gout. AMS (altered mental status) 03/25/2025 04/01/2025 Overview (03/25/2025): -acute confusion could be related to concussion from fall -more broad concerns regarding cognitive decline that is fairly acute in the last 2-3 months worry family (and patient) -underlying mental health treatment makes this harder to sort out. -Head CT and CXR neg. vitals normal. BS normal. No new meds. will obtain MR (r/o infarct or tumor), recommended Neuropysch testing as an outpatient. I've added EKG, troponin, TSH, RPR, Covid testing. -She does have a mild WILLIAM and mild transaminitis. Unclear if this is clinically relevant. - 03/15 MRI head, CT head, and CXR reviewed, negative; EKG from 03/13 reviewed; TSH wnl; troponin I unremarkable; Covid screen negative; RPR pending. MOCA today. Referred for outpatient neuropsych testing. - 03/16 improving. Will need outpatient neuropsych testing. Chronic respiratory failure with hypoxia 01/13/2025 04/01/2025 Overview (03/25/2025): oxygen-air delivery systems (HOME OXYGEN) ... Oxygen for home use. Liters per minute: 2 per bled into CPAP. Frequency of use: Nocturnal;. Length of need: 3 Months. ... order date: 12/10/24, start date: 12/10/24 01/10/25: HR 66 /min 01/10/25: SpO2 96 % Acute HFrEF (heart failure w ith reduced ejection fraction) 12/03/2024 01/13/2025 Depression, recurrent 09/08/20232023 Mood disorder 03/08/2021 07/20/2023 Type 2 diabetes mellitus, [facility] long-term current use of insulin 11/26/2020 09/07/2023 Heart failure with preserved ejection fraction 12/27/2019 01/13/2025 Compulsive behaviors 08/16/2018 020 Compulsive behaviors 05/15/2018 018 Lumbar radiculopathy, left 12/15/2017 0 05/23/2018 Alcohol dependence 03/14/2014 5 Syncope and collapse 03/06/2014 023 Hyponatremia 03/06/2014 09/07/2023 Shingles 12/22/2009 05/04/2011 Type II or unspecified type diabetes mellitus without mention of complication, not stated as uncontrolled 03/07/2008 12/03/2024 Encounters Date Type Department Care Team Description 04/17/2025 1:00 PM CDT Home Care Visit [facility] [address] [place] [address] Ric Ford, WAX CUTTER WAX CUTTER - INITIAL ASSESSMENT 04/17/2025 10:00 AM CDT Home Care Visit [facility] [address] [place] [address] Naren Byrne, PT PT - HOME VISIT 04/17/2025 Refill [facility] [address] [place] [address] Renee Akers MD Refill Request; Error-please disregard 04/17/2025 Nurse Triage [facility] [address] [place] [address] Ashutosh Gonzales MD Weight 04/17/2025 Nurse Triage [facility] [address] [place] [address] Ashutosh Gonzales MD 04/17/2025 Telephone [facility] [address] [place] [address] Naren Byrne, PT Home Care 04/17/2025 Home Care Visit [facility] [address] [place] [address] Ric Ford, WAX CUTTER CARE COORDINATION 04/17/2025 Home Care Visit [facility] [address] [place] [address] Karrie Ohara, PT CARE COORDINATION 04/17/2025 Travel 04/16/2025 Orders Only [facility] [address] [place] [address] Ashutosh Gonzales MD <No scans attached> 04/15/2025 Telephone [facility] [address] [place] [address] Ashutosh Gonzales MD Home Care (Orders for home care services) 04/15/2025 Plan of Care Documentation [facility] [address] [place] [address] 04/14/2025 1:00 PM CDT Home Care Visit [facility] [address] [place] [address] Karrie Ohara, PT PT - OASIS START OF CARE 04/11/2025 Refill [facility] [address] [place] [address] Ashutosh Gonzales MD Refill Request (Preservision Areds) 04/09/2025 Refill [facility] [address] [place] [address] Ashutosh Gonzales MD Refill Request (Cetirizine, Bumetanide, Jardiance, Gemtesa, Isosorbide Dinitrate, Magnesium Oxide) 04/08/2025 Telephone [facility] [address] [place] [address] Ashutosh Gonzales MD Results 04/08/2025 Telephone [facility] [place] [id number] [facility] [address] [place] [address] Karla Falcon PA Appointment 04/07/2025 8:45 AM CDT Orders Only [facility] [address] [place] [address] Lab, [facility] 04/07/2025 Telephone [facility] [address] [place] [address] Ashutosh Gonzales MD Results 04/07/2025 Travel 04/04/2025 Telephone [facility] [address] [place] [address] Ashutosh Gonzales MD Questions (Signed med list..* No order type specified *...) 04/02/2025 Telephone [facility] [place] [address] [place] [phone] Juli Menjivar CNS Cardiology Appointment ([facility] Appointment) 04/02/2025 Telephone [facility] [address] [place] [address] Ashutosh Gonzales MD ORDER (MEDICATION LIST) 04/01/2025 2:05 PM CDT Office Visit [facility] [address] [place] [address] Ashutosh Gonzales MD Follow Up 04/01/2025 Travel 04/01/2025 Telephone [facility] [address] [place] [address] Ashutosh Gonzales MD Appointment 03/24/2025 Telephone [facility] [address] [place] [address] Ashutosh Gonzales MD Form (Follow up) 03/24/2025 Refill [facility] [address] [place] [address] Marquis Valentine MD Refill Request (Sertraline HCL oral tablet 100mg) 03/19/2025 10:15 AM CDT Home Care Visit [facility] [address] [place] [address] Tamela Stone, PT PT - NOT TAKEN UNDER HOME CARE - HOME VISIT 03/18/2025 Orders Only [facility] [place] [address] [place] [phone] Juli Menjivar CNS <No scans attached> 03/18/2025 Telephone [facility] [place] [address] [place] [phone] Karla Falcon PA Cardiology Appointment 03/17/2025 2:30 PM CDT Office Visit [facility] [address] [place] [address] Ashutosh Gonzales MD Hospital F/U ([facility], 03/13/2025 - 03/16/2025) 03/17/2025 Travel 03/15/2025 Refill [facility] [address] [place] [address] Ashutosh Gonzales MD Refill Request (Trulicity) 03/14/2025 Orders Only [facility] Scanner 1 scan: (1-Ord) FREE UNION, MR HEAD/BRAIN WO CON, 03/14/2025 03/13/2025 Orders Only [facility] Scanner 1 scan: (1-Ord) FREE UNION, XR CHEST 1V PORTABLE, 03/13/2025 03/13/2025 Orders Only [facility] Scanner 1 scan: (1-Ord) [facility], HEAD/BRAIN WO, 03/13/2025 03/13/2025 Telephone [facility] [address] [place] [address] Ashutosh Gonzales MD inform (wants to inform Dr of a fall) 03/13/2025 Nurse Triage [facility] [address] [place] [address] Ashutosh Gonzales MD Head Injury 03/12/2025 Telephone [facility] [address] [place] [address] Ashutosh Gonzales MD DROPPED OFF COMMUNICATION PRIOR TO 03/17/2025 APPT. 03/07/2025 10:00 AM CDT Office Visit [facility] [address] [place] [address] Sandro Smyth AuD Hearing Aid 03/07/2025 9:00 AM CDT Office Visit [facility] [address] [place] [address] Marquis Valentine MD Mental Health Intake 03/07/2025 Travel 03/05/2025 2:00 PM CDT Office Visit [facility] [address] [place] [address] Case, MÓNICA Shrestha Follow Up (POST HOSPITAL FOLLOW UP- [facility]. /Pt states feeling well, SOB, fatigued, & lightheaded: I feel like I'm not quite myself. Like I'm just passing through.mentioned having a full body rash being seen by Derm. ) 03/05/2025 Travel 02/27/2025 Telephone [facility] [address] [place] [address] Marquis Valentine MD Pre-Visit Intake 02/26/2025 3:00 PM CDT Office Visit [facility] [address] [place] [address] Sabino Conway MD Sleep Follow-up 02/25/2025 2:00 PM CDT - 02/25/2025 11:59 PM CDT Hospital Encounter [address] [address] Ashutosh Gonzales MD Tierney, Doreen A, WAX CUTTER Cognitive impairment 02/25/2025 Orders Only [facility] Scanner 1 scan: (1-Ord) MALDONADO, COMPLIANCE REPORT, 02/25/2025 02/25/2025 Travel 02/19/2025 1:45 PM CDT Office Visit [facility] [address] [place] [address] Yvette Toribio, PhD, LP Individual Therapy 02/19/2025 Travel 02/17/2025 2:30 PM CDT Office Visit [facility] [address] [place] [address] Ashutosh Gonzales MD Follow Up 02/17/2025 2:15 PM CDT Nurse/Clinic Staff Only [facility] [address] [place] [address] Immunization/Inject ion (Vitamin B12 injection) 02/17/2025 Orders Only [facility] Scanner 1 scan: (1-Ord) ORCIO PATHAK, 02/17/2025 02/17/2025 Travel 02/15/2025 Orders Only [facility] [address] [place] [address] Ashutosh Gonzales MD <No scans attached> 02/14/2025 12:00 PM CDT Home Care Visit [facility] [address] [place] [address] Connie Saavedra, RN SN - OASIS DISCHARGE 02/13/2025 1:30 PM CDT Office Visit [facility] [address] [place] [address] Sandro Smyth, AuD Hearing Aid 02/13/2025 10:30 AM CDT Home Care Visit [facility] [address] [place] [phone] Alexsandra Ramirez PEARL FISHERMAN - HOME VISIT 02/13/2025 Refill [facility] [address] [place] [address] Ashutosh Gonzales MD Refill Request (Jardiance) 02/12/2025 11:30 AM CDT Home Care Visit [facility] [address] [place] [phone] Ric Ford, WAX CUTTER WAX CUTTER - DISCIPLINE DISCHARGE 02/12/2025 10:30 AM CDT Home Care Visit [facility] [address] [place] [phone] Naren Byrne, PT PT - DISCIPLINE DISCHARGE 02/12/2025 Travel 02/11/2025 Home Care Visit [facility] [address] [place] [phone] Lina Foster, OT OT - DISCIPLINE DISCHARGE 02/10/2025 10:30 AM CDT Home Care Visit [facility] [address] [place] [phone] Alexsandra Ramirez PEARL FISHERMAN - HOME VISIT 02/07/2025 10:30 AM CDT Home Care Visit [facility] [address] [place] [phone] Connie Saavedra, RITO SN - HOME VISIT 02/07/2025 Telephone [facility] [address] [place] [address] Ric Ford, WAX CUTTER Home Care (Request for outpatient speech therapy orders ) 02/06/2025 11:30 AM CDT Home Care Visit [facility] [address] [place] [phone] Ric Ford, WAX CUTTER WAX CUTTER - HOME VISIT 02/06/2025 10:30 AM CDT Home Care Visit [facility] [address] [place] [phone] Alexsandra Ramirez PEARL FISHERMAN - HOME VISIT 02/05/2025 9:00 AM CDT Home Care Visit [facility] [address] [place] [phone] Naren Byrne, PT PT - HOME VISIT 02/05/2025 Travel 02/04/2025 9:35 PM CDT Procedure Only [facility] [address] [place] [address] Sabino Conway MD 02/04/2025 10:30 AM CDT Home Care Visit [facility] [address] [place] [phone] Bernadette Stewart COTA OT - HOME VISIT 02/03/2025 10:30 AM CDT Home Care Visit [facility] [address] [place] [phone] Alexsandra Ramirez PEARL FISHERMAN - HOME VISIT 01/31/2025 12:00 PM CDT Home Care Visit [facility] [address] [place] [phone] Connie Saavedra, RITO SN - HOME VISIT 01/31/2025 9:00 AM CDT Home Care Visit [facility] [address] [place] [phone] Naren Byrne, PT PT - HOME VISIT 01/31/2025 Travel 01/30/2025 3:30 PM CDT Home Care Visit [facility] [address] [place] [address] Alysa Menon, OT OT - REASSESSMENT 01/30/2025 11:30 AM CDT Home Care Visit [facility] [address] [place] [address] Ric Ford, WAX CUTTER WAX CUTTER - HOME VISIT 01/30/2025 10:30 AM CDT Home Care Visit [facility] [address] [place] [phone] Alexsandra Ramirez PEARL FISHERMAN - HOME VISIT 01/28/2025 12:00 PM CDT Home Care Visit [facility] [address] [place] [address] Alexsandra Ramirez PEARL FISHERMAN - HOME VISIT 01/27/2025 3:30 PM CDT Office Visit [facility] [address] [place] [address] Sabino Conway MD Sleep Follow-up (cpap) 01/27/2025 8:20 AM CDT Office Visit [facility] [address] [place] [address] Daphne Awad PA Derm Problem 01/27/2025 Travel 01/24/2025 9:00 AM CDT Home Care Visit [facility] [address] [place] [phone] Naren Byrne, PT PT - HOME VISIT 01/24/2025 Orders Only [facility] [address] [place] [address] Ashutosh Gonzales MD <No scans attached> 01/24/2025 Travel 01/23/2025 1:00 PM CDT Home Care Visit [facility] [address] [place] [phone] Connie Saavedra, RN SN - HOME VISIT 01/23/2025 10:30 AM CDT Home Care Visit [facility] [address] [place] [address] Alexsandra Ramirez PEARL FISHERMAN - HOME VISIT 01/22/2025 1:00 PM CDT Home Care Visit [facility] [address] [place] [address] Bernadette Stewart COTA OT - HOME VISIT 01/21/2025 3:30 PM CDT Home Care Visit [facility] [address] [place] [address] Naren Byrne, PT PT - HOME VISIT 01/21/2025 10:00 AM CDT Home Care Visit [facility] [address] [place] [address] Ric Ford, WAX CUTTER WAX CUTTER - HOME VISIT 01/21/2025 Travel 01/21/2025 Home Care Visit [facility] [address] [place] [address] Vita Bhagat LISW ROLL RECLAIMER - CASE COMMUNICATION 01/20/2025 2:15 PM CDT Nurse/Clinic Staff Only [facility] [address] [place] [address] Immunization/Inject ion (VITAMIN B-12 INJECTION ) 01/20/2025 12:00 PM CDT Home Care Visit [facility] [address] [place] [phone] Alexsandra Ramirez PEARL FISHERMAN - HOME VISIT 01/20/2025 11:00 AM CDT Home Care Visit [facility] [address] [place] [phone] Yareli Jaime, VEGETABLE BUNCHER VEGETABLE BUNCHER - HOME VISIT 01/20/2025 Travel 01/20/2025 Telephone [facility] [address] [facility] [address] [place], [place] [phone] Daphne Awad PA Medication Management (REFILL NEEDED FOR MEDICATION Rx: triamcinolone 0.1 % ointment/) 01/17/2025 10:00 AM CDT Home Care Visit [facility] [address] [place] [phone] Connie Saavedra, RN SN - HOME VISIT 01/16/2025 10:30 AM CDT Home Care Visit [facility] [address] [place] [phone] Alexsandra Ramirez PEARL FISHERMAN - HOME VISIT 01/16/2025 9:00 AM CDT Home Care Visit [facility] [address] [place] [phone] Naren Byrne, PT PT - REASSESSMENT 01/16/2025 Telephone [facility] [address] [place] [address] Sandro Smyth, AuD Questions 01/15/2025 1:00 PM CDT Office Visit [facility] [address] [place] [address] Yvette Toribio, PhD, Mental Health Intake 01/15/2025 10:45 AM CDT Home Care Visit [facility] [address] [place] [phone] Ric Ford, WAX CUTTER WAX CUTTER - INITIAL ASSESSMENT 01/15/2025 9:00 AM CDT Home Care Visit [place] [id number] [place] [phone] Bernadette Stewart COTA OT - HOME VISIT 01/15/2025 Refill [facility] [address] [place] [address] Daphne Awad PA Refill Request (Triamcinolone) 01/15/2025 Travel from Last 3 Months Immunizations Immunization Administration Dates Next Due AMB Influenza, IIV3 (Age >=3 years)(Flu Clinic Only) 08/25/2010 COVID-19 vaccine ([employer] 30mcg/0.3mL) 12YO+ RONNY-SUCROSE PF, MDV 02/18/2022 COVID-19 vaccine ([employer] 30mcg/0.3mL) PF, MDV 08/05/2021,01/16/2021,12/26/2020 Influenza A (H1N1), Inactiva justin (Age >=3 Years) 10/28/2009 Influenza Virus, Unspecified 07/21/2016 Influenza, High-dose Inactivated 09/12/2024 Influenza, High-dose Quadriv alent Inactivated 07/21/2023,08/03/2022,07/24/2021 Influenza, [...] Medical History Relation Name Comments Hyperlipidemia Brother Seasonal affective disorder Daughter Alcoholism Father Heart Disease Father Alcoholism Mother just dependent to soothe her anxiety Alzheimer's disease Mother Depression Mother Suicide Attempts Other Completed i n maternal great-grandmother Anesthesia Problem No Family History Cancer No Family History Cancer-breast No Family History Cancer-colon No Family History Cancer-ovarian No Family History Cancer-prostate No Family History Relation Name Status Comments Brother Alive Daughter Alive Father (Age 50) MD Mother Alive Other Social History Tobacco Use Types Packs/Day Years Used Date Smoking Tobacco: Former Cigarettes 0.3 5 0 11/06/1996 - 11/06/2001 Smokeless Tobacco: Never Tobacco Cessation:Counseling Given: No Alcohol Use Standard Drinks/Week Comments Not Currently 8.3 (1 standard drin k = 0.6 oz pure alcohol) one to two glasses of wine per day. PHQ-2 Answer Date Recorded PHQ-2 TOTAL SCORE 5 03/07/2025 Social Connections Answer Date Recorded Do you often feel lonely or isolated from those around you? 0 12/04/2024 Financial Resource Strain Answer Date R ecorded Difficulty of Paying Living Expenses 3 07/30/2024 Difficulty of Paying Living Expenses Not on file 07/30/2024 Food Insecurity Answer Date Recorded Do you worry your food will run out before you are able to buy more? 1 12/04/2024 Transportation Needs Answer Date Record ed Does lack of transportation keep you from medica l appointments? 1 12/04/2024 Does lack of transportation keep you from work, meetings or getting things that you need? 1 12/04/2024 Housing Stability Answer Date Recorded What is your housing situation today? 1 12/04/2024 Interpersonal Safety Answer Date Record ed Are you being hit, kicked, p ushed or yelled at (see row info)? No 12/04/2024 Interpersonal Safety Abuse 12 - 18 Not on file 12/04/2024 Interpersonal Safety Ambulatory Vulnerability No t on file 12/04/2024 Utilities Answer Date Recorded Do you have trouble paying f or utilities (for example, heat, electricity, water, phone)? 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 Gender Identity Not on file Sexual Orientation Not on file Occupation Industry Job Start Date Job End Date [employer]IOR [employer]IG[employer] Not on file Not on file Not on file Obstetrics History Para Term AB IAB SAB Ectopic Multiple Livin g Live Births 2 2 2 Date Outcome GA Total Labor Labor/2nd/3rd Weight Sex Type Anes PTL Michelle A1 A5 Name Clin Para Para Last Filed Vital Signs Vital Sign Reading Time Taken Comments Blood Pressure 118/54 04/17/2025 1:54 PM CDT Pulse 82 04/17/2025 1:54 PM CDT Temperature 36.3 C (97.3 F) 04/17/2025 1:54 PM CDT Respiratory Rate 18 04/17/2025 1:54 PM CDT Oxygen Saturation 97% 04/17/2025 1:54 PM CDT Inhaled Oxygen Concentration - - Weight 87.1 kg (192 lb) 04/17/2025 1:54 PM CDT Height 157.5 cm (5' 2) 04/14/2025 2:55 PM CDT Body Mass Index 35.12 04/14/2025 2:55 PM CDT Plan of Treatment Upcoming Encounters Date Type Department Care Team (Late st Contact Info) Description 04/22/2025 3:00 AM CDT Home Care Visit [address] [phone] Naren Byrne, PT [address] [place] [address] 04/22/2025 2:55 PM CDT Office Visit [facility] [address] [place] [address] Ashutosh Gonzales MD [address] [place] [address] 04/24/2025 11:45 AM CDT Home Care Visit [address] [phone] Ric Ford, WAX CUTTER [address] [place] [address] 04/25/2025 2:30 PM CDT Home Care Visit [address] [phone] Naren Byrne, PT [address] [place] [address] 04/29/2025 3:00 AM CDT Home Care Visit [address] [address] Naren Byrne, PT [address] [place] [address] 05/02/2025 3:00 AM CDT Home Care Visit [facility] [address] [place] [address] Naren Byrne, PT [address] [place] [address] 05/02/2025 10:00 AM CDT Office Visit [facility] [address] [place] [address] Marquis Valentine MD [address] [place] [address] 05/07/2025 3:00 AM CDT Home Care Visit [facility] [address] [place] [address] Naren Byrne, PT [address] [place] [address] 05/12/2025 2:15 PM CDT Nurse/Clinic Staff Only [facility] [address] [place] [address] 05/13/2025 3:00 AM CDT Appointment [facility] [address] [place] [address] Naren Byrne, PT [address] [place] [address] 05/14/2025 2:00 PM CDT Ancillary Procedure [facility] [address] [place] [address] 05/22/2025 1:30 PM CDT Office Visit [facility] [address] [facility] [address] [place] [address] Elaina Sam MD [address] [facility] [address] [place] [address] 05/27/2025 12:30 PM CDT Office Visit [facility] [address] [place] [address] Marquis Valentine MD [address] [place] [address] 06/09/2025 2:15 PM CDT Nurse/Clinic Staff Only [facility] [address] [place] [address] 06/18/2025 3:00 PM CDT Office Visit [facility] [address] [place] [address] Sabino Conway MD [address] [place] [address] 07/01/2025 10:00 AM CDT Office Visit [facility] [address] [place] [address] Marquis Valentine MD [address] [place] [address] 07/10/2025 2:15 PM CDT Nurse/Clinic Staff Only [facility] [address] [place] [address] 08/11/2025 2:15 PM CDT Nurse/Clinic Staff Only [facility] [address] [place] [address] 08/12/2025 11:00 AM CDT Office Visit [facility] [address] [place] [address] Prince Baer MBBS [address] [facility] [address] [place] [address] 09/08/2025 2:15 PM ELECTRIC METER TESTER HELPER Nurse/Clinic Staff Only [facility] [address] [place] [address] 10/06/2025 2:15 PM ELECTRIC METER TESTER HELPER Nurse/Clinic Staff Only [facility] [address] [place] [address] 11/03/2025 2:15 PM ELECTRIC METER TESTER HELPER Nurse/Clinic Staff Only [facility] [address] [place] [address] Health Maintenance Due Date Last Done Comments Medicare Wellness for age 65+ 09/07/2024 09/07/2023, 07/28/2022, 03/07/2022, Additional history exists COVID-19 vaccine series (2023- season) 2025 08/27/2024, 10/06/2023, 03/06/2023, Additional history exists BMI (ht and wt on same day) for age 18+ 03/07/2026 03/07/2025, 03/05/2025, 02/26/2025, Additional history exists Depression screening for age 12+ 03/07/2026 03/07/2025, 03/07/2025, 01/27/2025, Additional history exists Tetanus booster 08/07/2030 08/07/2020, 12/2009, 04/12/2004 Zoster (shingles) series for age 50+ Completed 03/30/2018, 01/04/2018, 01/23/2014, Additional history exists Tdap Completed 08/07/2020, 09/07/2010 Pneumococcal series for age 50+ Completed 03/07/2023, 10/08/2014, 02/12/2014, Additional history exists RSV vaccine for adults or Completed 07/21/2023 DEXA/DXA scan for age 65+ Completed 2023, 06/20/2019, 06/17/2011 Influenza Vaccine Completed 09/12/2024, , 07/21/2017, Additional history exists Hepatitis C screening for age 18-79 Completed 01/09/2025, 07/10/2020 Hepatitis B series for 19+ Aged Out N o longer eligible based on patient's age to complete this topic Procedures Procedure Name Priority Date/Time Associated Diagnosis Comments URINALYSIS MACROSCOPIC - [facility] ONLY POC DIP (QUEST) Routine 04/07/2025 8:51 AM CDT Dysuria URINE ALBUMIN TO CREATININE RATIO, RANDOM Routine 04/07/2025 8:50 AM CDT Stage 3a chronic kidney disease (HC) Proteinuria, unspecified type Generalized edema Hyperuricemia URINALYSIS MICROSCOPIC Routine 8:50 AM CDT Dysuria URINE CULTURE Routine 04/07/2025 8:50 AM CDT Dysuria SODIUM Routine 03/17/2025 3:17 PM CDT Hyponatremia HEMOGLOBIN A1C MONITORING (POCT) Routine 03/17/2025 3:16 PM CDT Diabetes mellitus without complication (HC) SCAN-MRI INTERPRETATION 03/14/2025 12:00 AM CDT SCAN-RADIOLOGY REPORT 03/13/2025 12:00 AM CDT SCAN-CT INTERPRETATION 12:00 AM CDT SCAN CORRESP-DIAGNOSTICS 02/27/2025 3:29 PM CDT BASIC METABOLIC PANEL Routine 02/17/2025 3:23 PM CDT Stage 3a chronic kidney disease (HC) URIC ACID Routine 02/17/2025 3:23 PM CDT History of gout SCAN-SLEEP STUDY 02/17/2025 12:0 0 AM CDT SCAN CORRESP-IMAGING 01/16/2025 8:35 AM CDT ANTI HCV Routine 01/09/2025 2:12 PM ELECTRIC METER TESTER HELPER HFrEF (heart failure with reduced ejection fraction) (HC) Stage 3a chronic kidney disease (HC) Proteinuria, unspecified type Generalized edema Hyperuricemia XR DXA BONE DENSITY 2 SITES AXIAL Routine 09/12/2024 2:37 PM ELECTRIC METER TESTER HELPER Asymptomatic postmenopausal state from Last 3 Months or Most Recently Relevant to Health Maintenance Results * (ABNORMAL) POCT Urinalysis Dipstick Only [[id number]] (04/07/2025 8:51 AM CDT) PH 5.5 5.0 - 8.0 [facility] SPECIFIC GRAVITY < OR = 1.005 1.001 - 1.035 [facility] Comment: Specific [place] values resulted are outside the analytical measurement range of this device. Recommend repeat/additional testing as clinically indicated. GLUCOSE TRACE(A) NEGATIVE [facility] BILIRUBIN NEGATIVE NEGATIVE [facility] KETONES NEGATIVE NEGATIVE [facility] OCCULT BLOOD NEGATIVE NEGATIVE [facility] PROTEIN TRACE(A) NEGATIVE [facility] NITRITE NEGATIVE NEGATIVE [facility] LEUKOCYTE ESTERASE TRACE(A) NEGATIVE [facility] Urine URINE SPECIMEN / Unknown 04/07/2025 8:51 AM CDT 04/07/2025 8:51 AM CDT Ashutosh Gonzales MD URINE Final Result [facility] [address] [place] [address], [facility] [address] [place] [address] * (ABNORMAL) URINALYSIS MICROSCOPIC [53598.1] - routine (04/07/2025 8:50 AM CDT) RBC 0-2 0-2, None Seen /HPF 04/07/2025 2:41 PM CDT [facility] WBC 11-25(A) 0-2, 3-5, None Seen /HPF 04/07/2025 2:41 PM CDT [facility] BACTERIA None Seen None Seen, Rare, Few Bacteria/ HPF 04/07/2025 2:41 PM CDT [facility] EPITHELIAL CELLS None Seen None Seen, Few Epi/HPF 04/07/2025 2:41 PM CDT [facility] HYALINE CASTS 0-2 0-2, 3-5 /LPF 04/07/2025 2:41 PM CDT [facility] Urine URINE SPECIMEN / Unknown Non-Blood / Unknown 04/07/2025 8:50 AM CDT 04/07/2025 8:50 AM CDT us Ashutosh Gonzales MD URINE Final Result Performing Organization Address [facility]/ZIP Co de Phone Number [facility] [address] [place] [address], * URINE CULTURE [99025.2] (04/07/2025 8:50 AM CDT) CULTURE <10,000 CFU/mL multiple organisms 04/08/2025 2:04 PM CDT [facility] Urine URINE SPECIMEN / Unknown Non-Blood / Unknown 04/07/2025 8:50 AM CDT 04/07/2025 8:50 AM CDT us Ashutosh Gonzales MD MICROBIOLOGY Final Result Performing Organization Address [facility] Co de Phone Number [facility] [address] [place] [address], * (ABNORMAL) URINE ALBUMIN TO CREATININE RATIO, RANDOM (04/07/2025 8:50 AM CDT) ALB RAND URINE 83.0 mg/L 04/07/2025 3:09 PM CDT [facility] CREATININE,URIN E 0.34 g/L 04/07/2025 3:09 PM CDT [facility] ALBUMIN TO CREATININE RATIO,RAND UR 244.1(H) <30.0 mg/g creat 04/07/2025 3:09 PM CDT [facility] Urine URINE SPECIMEN / Unknown Non-Blood / Unknown 04/07/2025 8:50 AM CDT 04/07/2025 8:51 AM CDT Narrative [facility] - 04/07/2025 3:09 PM CDT If Albumin to Creatinine Ratio is elevated, consider the following: Elevations seen with incipient nephropathy associated with diabetes mellitus or hypertension. Stress, exercise,hematuria, and urinary tract infection may also produce elevated results. If clinically indicated, confirm with 24 Hour Albumin to Creatinine Ratio. us Prince Keyur BURKS URINE Final Result Performing Organization Address City/[facility]/ZIP Co de Phone Number [facility] [address] [place] [address], [place] * (ABNORMAL) SODIUM (03/17/2025 3:17 PM CDT) SODIUM 134(L) 135 - 146 mmol/L [facility] kavita Martinez Blood BLOOD SPECIMEN / Unknown 03/17/2025 3:17 PM CDT 03/17/2025 3:20 PM CDT Ashutosh Gonzales MD CHEMISTRY Final Result Performing Organization Address [facility] Co de Phone Number [employer] [facility] [address] [place] [address], [place] [phone] [facility] [address] [place] [address] * HEMOGLOBIN A1C MONITORING (POCT) (03/17/2025 3:16 PM CDT) Pathologist [facility] POC HEMOGLOBIN A1C 5.9 <6.0 % OF TOTAL HGB [facility] Comment: Any point of care results exhibiting inconsistency with the patient's clinical status should be repeated using a different testing method. Blood BLOOD SPECIMEN / Unknown 03/17/2025 3:16 PM CDT 03/17/2025 3:17 PM CDT Ashutosh Gonzales MD CHEMISTRY Final Result Performing Organization Address City/[facility]/ZIP Co de Phone Number [facility] [address] [place] [address], [place] [phone] [facility] [address] [place] [address] * SCAN-MRI INTERPRETATION (03/14/2025 12:00 AM CDT) Anatomical Region Laterality Modality Other us Scanner OTHER Final Result * SCAN-RADIOLOGY REPORT (03/13/2025 12:00 AM CDT) Anatomical Region Laterality Modality Other us Scanner OTHER Final Result * SCAN-CT INTERPRETATION (03/13/2025 12:00 AM CDT) Anatomical Region Laterality Modality Other us Scanner OTHER Final Result * SCAN CORRESP-DIAGNOSTICS (02/27/2025 3:29 PM CDT) us Scanner OTHER Final Result * URIC ACID (02/17/2025 3:23 PM CDT) URIC ACID 4.4 2.5 - 7.0 mg/dL [facility] [employer] Comment: Therapeutic target for gout patients: <6.0 mg/dL Blood BLOOD SPECIMEN / Unknown 02/17/2025 3:23 PM CDT 02/17/2025 3:23 PM CDT Narrative [facility] - 02/18/2025 5:10 AM CDT FASTING:NO FASTING: NO Ashutosh Gonzales MD CHEMISTRY Final Result [facility] [address] [place] [address], [facility] [address] [place] [address] * (ABNORMAL) BASIC METABOLIC PANEL (02/17/2025 3:23 PM CDT) GLUCOSE 135 65 - 139 mg/dL [facility] Comment: Non-fasting reference interval UREA NITROGEN (BUN) 45(H) 7 - 25 mg/dL [facility] kanwal Martinez CREATININE 1.73(H) 0.60 - 1.00 mg/dL [facility] EGFR 30(L) > OR = 60 mL/min/1.7 3m2 [facility] BUN/CREATININE RATIO 26(H) 6 - 22 (calc) [facility] SODIUM 139 135 - 146 mmol/L [facility] POTASSIUM 4.7 3.5 - 5.3 mmol/L [facility] CHLORIDE 100 98 - 110 mmol/L [facility] CARBON DIOXIDE 29 20 - 32 mmol/L [facility] ELECTROLYTE BALANCE 10 7 - 17 mmol/L (calc) [facility] CALCIUM 9.5 8.6 - 10.4 mg/dL [facility] Blood BLOOD SPECIMEN / Unknown 02/17/2025 3:23 PM CDT 02/17/2025 3:23 PM CDT Narrative [facility] - 02/18/2025 5:10 AM CDT FASTING:NO FASTING: NO us Ashutosh Gonzales MD CHEMISTRY Final Result [employer] [facility] [address] [place] [phone], [employer] [address] * SCAN-SLEEP STUDY (02/17/2025 12:00 AM CDT) us Scanner OTHER Final Result * SCAN CORRESP-IMAGING (01/16/2025 8:35 AM CDT) Anatomical Region Laterality Modality Other Narrative 01/16/2025 8:35 AM CDT Ordered by an unspecified provider. us Other Clinical Staff OTHER Final Resul t * ANTI HCV (01/09/2025 2:12 PM ELECTRIC METER TESTER HELPER) HEPATITIS C ANTIBODY NON-REACTI VE NON-REACT PRETTY [facility] Comment: HCV antibody was non-reactive. There is no laboratory evidence of HCV infection. In most cases, no further action is required. However, if recent HCV exposure is suspected, a test for HCV RNA (test code 69863) is suggested. For additional information please refer to http://education.Novitaz/faq/PEG96j6 (This link is being provided for informational/ educational purposes only.) Blood BLOOD SPECIMEN / Unknown 01/09/2025 2:12 PM ELECTRIC METER TESTER HELPER 01/09/2025 2:12 PM ELECTRIC METER TESTER HELPER [facility] SEND OUTS Final Result [employer] [facility] [address] [place] [address], [facility] [address] [place] [address] * (ABNORMAL) XR DXA BONE DENSITY 2 SITES AXIAL (09/12/2024 2:37 PM ELECTRIC METER TESTER HELPER) Anatomical Region Laterality Modality Spine, HIPS, HIPL, HIPR Other Impressions 09/13/2024 4:12 PM ELECTRIC METER TESTER HELPER Osteopenia. RECOMMENDATIONS: The National Osteoporosis Foundation recommends [...] to assess therapeutic efficacy. Griselda Neri PA-C [facility] 09/13/2024 Narrative 09/13/2024 4:12 PM ELECTRIC METER TESTER HELPER For Patients: Results are automatically released to your [facility] ([facility]) account once available, in compliance with federal regulations. This means that you may see your results before your provider has had a chance to review them. Please allow 2-3 business days for your provider to comment on the results. XR DXA Bone Mineral Density (BMD) EXAM LOCATION: [facility] [address] [facility] [address] PATIENT NAME: Jessica Meek DATE OF : [...] two scanners are made by the same microbiology supervisor. PROCEDURE: Dual-energy x-ray absorptiometry performed with routine [...] hip fracture: 3.5%. Ashutosh Gonzales MD DEXA Final Result from Last 3 Months or Most Recently Relevant to Health Maintenance Insurance MEDICARE PB ONLY MEDICARE PART B HB ONLY MEDICARE PART A HB ONLY [facility] MEDICARE PPS Advance Directives Documents on File Type Date Recorded Patient Telecommunication Tower Technician Expl anation Healthcare Directive 05/02/2013 12:00 AM A DVANCE DIRECTIVE * Full Code (Latest Code Status on File) Date Activated Date Inactivated Comments 12/03/2024 7:22 PM 12/10/2024 4:42 PM Question Answer Comments Code Status Discussion: Reviewed Preferences * Full Code Date Activated Date Inactivated Comments 03/06/2014 7:28 PM 03/09/2014 5:42 PM Care Teams Dyno Technician Relationship Specialty Start Date End Date Ashutosh Gonzales MD [address] [place] [address] PCP - General Family Practice 07/21/17 Qiana Huntley, RN [address] [place] [address] Subject Scientific Research 12/31/[address] [place] [address] [place] [address] Subject Scientific Research Manager Technical 12/31/20 [facility] [place] [address] [address] 03/17/25 [facility] [place] [address] [address] 04/11/25
[2025-04-17 20:39] VITALS: BP 112/58; PULSE 84; RESP 16; TEMP 36.4; O2SAT 97
--- NOTE | 2025-04-17 21:15 | ED.GENADULT ---
HPI - General Adult General Chief complaint: Shortness of Breath/Dyspnea Stated complaint: vertigo Time Seen by Provider: 04/17/25 20:43 History of Present Illness HPI narrative: This 79-year-old female comes in by ambulance from her memory care facility. She states that she is taking diuretics but feels like she has more shortness of breath and weight gain recently. She does report history of congestive heart failure and states that she has had a problem with her mitral valve. She does report some vertigo symptoms but states that that is not new and is adequately managed with taking meclizine as needed. She does report some chest discomfort. She appears in no acute distress and in fact is rather talkative. Related Data Home Medications ?Medication ?Instructions ?Recorded ?Confirmed atorvastatin 40 mg tablet 40 mg PO HS 08/14/22 04/17/25 blood sugar diagnostic (OneTouch 08/14/22 03/21/24 Verio test strips) dulaglutide 1.5 mg/0.5 mL 1.5 mg subcut .weekly 08/14/22 04/17/25 subcutaneous pen injector (Trulicity) metformin 500 mg tablet,extended 500 mg PO BIDWM 08/14/22 04/17/25 release 24 hr metoprolol succinate 50 mg 50 mg PO DAILY 08/14/22 04/17/25 tablet,extended release 24 hr magnesium aspart,citrate,oxide 400 mg PO DAILY 08/01/23 04/17/25 vitamins A,C,[id number]-[id number] 2,148 1 tab PO BID 08/01/23 04/17/25 mcg-113 mg-45 mg-17.4 mg tablet (Eye Multivitamin) empagliflozin 10 mg tablet 10 mg PO QAM 03/21/24 04/17/25 (Jardiance) esomeprazole magnesium 20 mg 20 mg PO DAILY 08/09/24 03/13/25 capsule,delayed release allopurinol 200 mg tablet 200 mg PO DAILY 03/13/25 04/17/25 bumetanide 2 mg tablet 2 mg PO BID 03/13/25 04/17/25 hydralazine 25 mg tablet 25 mg PO TID 03/13/25 04/17/25 isosorbide dinitrate 10 mg tablet 10 mg PO TID 03/13/25 04/17/25 vibegron 75 mg tablet (Gemtesa) 75 mg PO DAILY 03/13/25 04/17/25 sertraline 100 mg tablet 100 mg PO QAM 03/14/25 04/17/25 triamcinolone acetonide 0.1 % topical BID itch 04/17/25 topical ointment Allergies Allergy/AdvReac Type Severity Reaction Status Date / Time amoxicillin Allergy Unknown Verified 04/17/25 20:43 losartan Allergy Verified 04/17/25 20:43 Review of Systems Status of ROS: Reports: 10 or more systems reviewed and unremarkable except as noted in History and below Narrative: Constitutional: No fevers. Eyes: No discharge. No vision changes. HENT: No congestion, no sore throat, no ear pain. Cardiovascular: No palpitations. Respiratory: No shortness of breath, no wheezes, no cough. Gastrointestinal: No abdominal pain, no vomiting, no diarrhea. Genitourinary: No dysuria, no hematuria. Musculoskeletal: Normal range of motion. Skin: No rashes, no pruritis. Neurological: No dizziness, weakness, sensory change, speech change. Endo/Heme/Allergies: No bruising or bleeding. No polydipsia. Pysch: no suicidality, no anxiety, no insomnia. All other systems reviewed and are negative. [facility] Medical History (Updated 04/17/25 @ 22:32 by Russ Sanches MD) OAB (overactive bladder) ?N32.81 - Overactive bladder (ICD-10) Osteoarthritis of right knee ?M17.11 - Unilateral primary osteoarthritis, right knee (ICD-10) Dysplasia of trochlea of femur ?Q74.1 - Congenital malformation of knee (ICD-10) Pulmonary HTN ?I27.20 - Pulmonary hypertension, unspecified (ICD-10) Lumbar spondylosis ?M47.816 - Spondylosis without myelopathy or radiculopathy, lumbar region (ICD-10) Essential (primary) hypertension ?I10 - Essential (primary) hypertension (ICD-10) Vitamin B deficiency, unspecified ?E53.9 - Vitamin B deficiency, unspecified (ICD-10) Anxiety disorder, unspecified ?F41.9 - Anxiety disorder, unspecified (ICD-10) Gait instability ?R26.81 - Unsteadiness on feet (ICD-10) Vertigo ?R42 - Dizziness and giddiness (ICD-10) Obsessive-compulsive disorder, unspecified ?F42.9 - Obsessive-compulsive disorder, unspecified (ICD-10) Adenomatous colon polyp ?D12.6 - Benign neoplasm of colon, unspecified (ICD-10) Hoarding disorder ?F42.3 - Hoarding disorder (ICD-10) Sleep apnea, unspecified ?G47.30 - Sleep apnea, unspecified (ICD-10) Iron deficiency anemia, unspecified ?D50.9 - Iron deficiency anemia, unspecified (ICD-10) Heart failure, unspecified ?I50.9 - Heart failure, unspecified (ICD-10) Varicose veins of right lower extremity with inflammation ?I83.11 - Varicose veins of right lower extremity with inflammation (ICD-10) Type 2 diabetes mellitus without complications ?E11.9 - Type 2 diabetes mellitus without complications (ICD-10) Surgical History History of arthroscopy of left shoulder (08/08/14) ?Z98.890 - Other specified postprocedural states (ICD-10) History of total abdominal hysterectomy ?Z90.710 - Acquired absence of both cervix and uterus (ICD-10) Social History What is your current living situation?: I presently have a place to live Problems where you live: no known problems Problems where you live details: none In the past 12 months, utilities in danger of being shut off: no In past 12 months, lack of transportation kept you from medical appts, meetings, work, or getting things needed for daily living: no In the past 12 mos, have been you worried that your food would run out before you had money to buy more?: never true In the past 12 mos, the food you bought just didn't last and you didn't have money to buy more?: never true Highest level of school completed/degree received: Bachelor's degree Smoking Status: Former smoker What tobacco products do you use: cigarettes Years smoked: 0.5 Smoking quit date/years: >15 years ago Do you use any of these nicotine containing products: None Second hand tobacco smoke exposure: No How often do you have a drink containing alcohol: never AUDIT-C Alcohol total score: 0 Non-prescribed substance use: denies use Caffeine: Yes (coffee) How often does anyone, including family, friends and others, physically hurt you: never How often does anyone, including family, friends and others, insult or talk down to you: rarely How often does anyone, including family, friends and others, threaten you with harm: never How often does anyone, including family, friends and others, scream or curse at you: never service: No Health Related Social Needs: Other personal risk factors, not elsewhere classified (Z91.89) Exam Narrative: Exam Narrative: Constitutional: Well-developed, well-nourished, no acute distress. HEENT: Normocephalic, atraumatic. Neck: Normal range of motion. Nontender. Supple. Heart: Regular. No murmurs. Normal rate. Intact distal pulses. Lungs: Clear to auscultation. No chest discomfort. No wheezes, rhonchi, or rales. Abdomen: Normal bowel sounds. Nontender. No rebound tenderness. Genitalia: Deferred. Back: No midline tenderness. Normal range of motion. Extremities: Normal range of motion. No injury. Mild pedal edema bilaterally with some erythema. Skin: Intact. No rash. Warm. No erythema or pallor. Neurologic: No altered sensation. No weakness. Alert and oriented. Psychiatric: No suicidality. No anxiety or depression. No insomnia. Nursing notes and vitals signs are reviewed. Const: Vital Signs, click to edit/add: Vital Signs - 24 hr 04/17/25 20:39 04/17/25 21:37 Temperature 97.6 F Pulse Rate 82 Pulse Rate [Pulse Oximeter] 84 Respiratory Rate 16 16 Blood Pressure 135/66 Blood Pressure [Le ft Upper Arm] 112/58 L Pulse Oximetry 97 95 Oxygen Delivery Me thod Room Air Room Air Course Vital Signs Vital signs: Initial Vital Signs Temperature 97.6 F 04/17/25 20:39 Temperature Source Temporal Artery Scan 04/17/25 20:39 Pulse Rate 84 04/17/25 20:39 Respiratory Rate 16 04/17/25 20:39 Blood Pressure 112/58 L 04/17/25 20:39 Blood Pressure Mean 76 04/17/25 20:39 Pulse Oximetry 97 04/17/25 20:39 Oxygen Delivery Method Room Air 04/17/25 20:39 Vital Signs Temperature 97.6 F 04/17/25 20:39 Pulse Rate 84 04/17/25 20:39 Respiratory Rate 16 04/17/25 20:39 Blood Pressure 112/58 L 04/17/25 20:39 Pulse Oximetry 97 04/17/25 20:39 Oxygen Delivery Method Room Air 04/17/25 20:39 Temperature 97.6 F 04/17/25 20:39 Pulse Rate 82 04/17/25 21:37 Respiratory Rate 16 04/17/25 21:37 Blood Pressure 135/66 04/17/25 21:37 Pulse Oximetry 95 04/17/25 21:37 Oxygen Delivery Method Room Air 04/17/25 21:37 Medical Decision Making MDM Narrative Medical decision making narrative: This patient comes in with concern that she might have worsening congestive heart failure and fluid retention. She does have some pedal edema but it is not excessive and appears to be a rather chronic condition. Her exam is otherwise reassuring. I did obtain labs and her B type natriuretic peptide is actually improved compared to a value obtained about a month ago. The patient was also reporting some chest discomfort but EKG and labs in this regard also are reassuring. She states that she no longer feels these symptoms. She is okay to be discharged back home to resume current plans. He would be okay to take an extra blue max tablet for the next day or 2 if needed. She also requested a stool softener. Lab Data Labs: Lab Results 04/17/25 Range/Units 21:25 WBC 4.83 (4.50-11.00) K/uL RBC 3.35 L (4.00-5.20) m/uL Hgb 9.6 L (12.0-16.0) gm/dL Hct 29.5 L (33.0-51.0) % MCV 88 (80-100) fL MCH 29 (26-34) pg MCHC 33 (32-36) gm/dL RDW Coeff of Dez 15.5 (11.5-15.5) % Plt Count 224 (140-440) K/uL Neut % (Auto) 64.5 (42.0-72.0) % Lymph % (Auto) 11.8 L (20-44) % [place] % (Auto) 19.0 H (0.0-11.0) % Eos % (Auto) 3.7 (0.0-7.0) % Baso % (Auto) 0.6 (0.0-3.0) % Neut # (Auto) 3.11 (1.7-7.0) K/uL Lymph # (Auto) 0.60 L (0.90-2.90) K/uL [place] # (Auto) 0.90 (0.00-0.90) K/UL Eos # (Auto) 0.18 (0.00-0.50) K/uL Baso # (Auto) 0.03 (0.00-0.30) K/uL Abs Immat Gran (auto) 0.02 (0.00-0.30) K/uL Imm/Tot Granulo (auto) 0.4 % Sodium 129 L (135-149) mmol/L Potassium 3.2 L (3.6-5.1) mmol/L Chloride 91 L (96-114) mmol/L Carbon Dioxide 32 (20-32) mmol/L Anion Gap 6 L (7-15) mEq/L BUN 24 (7-30) mg/dL Creatinine 1.3 (0.5-1.5) mg/dL Estimated GFR 42 ml/min Glucose 102 (60-115) mg/dL Calcium 8.7 (8.4-10.6) mg/dL NT-Pro-B Natriuret Pep 3850 H (See Note) pg/mL POC Troponin I 0.03 (0.01-0.04) ng/ml ECG Data Attestation: I personally reviewed and interpreted this ECG as follows: Interpretation: Sinus rhythm with 1st degree AV block. Occasional PVCs. Rate is 87 beats per minute. There are no specific ST or T-wave abnormalities. Discharge Plan Discharge Clinical Impression: Pedal edema Patient Disposition: Home w/ Parent or Adult Condition: Stable Additional Instructions: Continue current plans. Okay to take an extra Bumex tablet for the next 2 or 3 days if needed. Use [id number] medicines as needed and directed for constipation, such as MiraLax, Dulcolax, magnesium citrate, etc.. Prescriptions: No Action Jardiance 10 mg tablet 10 mg PO QAM esomeprazole magnesium 20 mg capsule,delayed release(DR/EC) 20 mg PO DAILY Eye Multivitamin 2,148 mcg-113 mg-45 mg-17.4mg tablet 1 tab PO BID Rx Instructions: administer with AM and PM meals magnesium aspart,citrate,oxide 400 mg magnesium capsule 400 mg PO DAILY allopurinol 200 mg tablet 200 mg PO DAILY isosorbide dinitrate 10 mg tablet 10 mg PO TID bumetanide 2 mg tablet 2 mg PO BID hydralazine 25 mg tablet 25 mg PO TID Gemtesa 75 mg tablet 75 mg PO DAILY sertraline 100 mg tablet 100 mg PO QAM triamcinolone acetonide 0.1 % ointment topical BID atorvastatin 40 mg tablet 40 mg PO HS Patient Comments: TAKE ONE TABLET BY MOUTH ONE TIME DAILY AT BEDTIME metoprolol succinate 50 mg tablet extended release 24 hr 50 mg PO DAILY Patient Comments: TAKE ONE TABLET BY MOUTH ONE TIME DAILY (DME) OneTouch Verio test strips Strip MISCELLANEOUS Patient Comments: USE TO TEST BLOOD SUGARS TWICE DAILY metformin 500 mg tablet extended release 24 hr 500 mg PO BIDWM Trulicity 1.5 mg/0.5 mL pen injector 1.5 mg SUBCUT .weekly Patient Comments: Inject 1.5mg (contents of 1 pen) by subcutaneous route once weekly. Follow Up/Referrals: Ashutosh Gonzales MD [Primary Care Provider, Family Practice] Stand Alone Forms: [employer] Info Instructions
[2025-04-17 21:37] VITALS: BP 135/66; PULSE 82; RESP 16; O2SAT 95
[2025-04-17 21:42] LABS: Troponin, Point-of-Care* 0.03 ng/ml (0.01-0.04)
[2025-04-17 21:53] LABS: Chloride* 91 mmol/L (96-114)
[2025-04-17 21:54] LABS: Potassium* 3.2 mmol/L (3.6-5.1); Sodium* 129 mmol/L (135-149)
[2025-04-17 21:56] LABS: Blood Urea Nitrogen* 24 mg/dL (7-30); Creatinine* 1.3 mg/dL (0.5-1.5); Estimated Glomerular Filt Rate 42 ml/min
[2025-04-17 21:57] LABS: Anion Gap 6 mEq/L (7-15); Calcium* 8.7 mg/dL (8.4-10.6); Carbon Dioxide* 32 mmol/L (20-32); Glucose* 102 mg/dL (60-115)
[2025-04-17 22:06] LABS: Basophils Absolute Auto 0.03 K/uL (0.00-0.30); Basophils Percent Auto 0.6 % (0.0-3.0); Eosinophils Absolute Auto 0.18 K/uL (0.00-0.50); Eosinophils Percent Auto 3.7 % (0.0-7.0); Hematocrit 29.5 % (33.0-51.0); Hemoglobin* 9.6 gm/dL (12.0-16.0); Immature Granulocytes Abs Auto 0.02 K/uL (0.00-0.30); Immature Granulocytes Pct Auto 0.4 %; Lymphocytes Percent Auto 11.8 % (20-44); Mean Corpuscular HGB Conc 33 gm/dL (32-36); Mean Corpuscular Hemoglobin 29 pg (26-34); Mean Corpuscular Volume 88 fL (80-100); Neutrophils Absolute Auto 3.11 K/uL (1.7-7.0); Neutrophils Percent Auto 64.5 % (42.0-72.0); Platelet Count* 224 K/uL (140-440); RDW Coefficient of Variation % 15.5 % (11.5-15.5); Red Blood Count 3.35 m/uL (4.00-5.20); White Blood Count* 4.83 K/uL (4.50-11.00)
[2025-04-17 22:09] LABS: Slide Review Reflex No
[2025-04-17 22:21] LABS: NT Pro B Type NatriureticPept* 3850 pg/mL (See Note)
== END 2025-04-17 23:22 | disposition home or self-care (01) ==
PROVIDERS: Emergency Provider Emergency Medicine Emergency Medical Services; PCP Family Medicine
DX: R60.9 Edema, unspecified (principal)
CPT/HCPCS: 36415; 80048; 83880; 84484; 85025; 93005; 99283; 99284

== ENCOUNTER 2025-06-03 13:20 | Emergency (ER) | payer MEDICARE, BC, SELFPAY ==
--- OUTSIDE RECORDS SUMMARY | 2025-06-03 13:22 | XMS_ITS | Clinical Summary ---
Author Organization [employer] [facility] Address [address] [place] [id number] Care Team Providers Care Citrus Picker Name Role Phone Ashutosh Gonzales MD Primary Care Provider Qiana Huntley RN Unavailable [phone] Unavailable [facility] [place] Unavailable [facility] [place] Unavailable Allergies Active Allergy Reactions Criticality Noted Date Comments Amoxicillin Rash 04/13/2007 Cat Dander Other - Describe In Comment Field 02/05/2018 Losartan Other - Describe In Comment Field 07/28/2022 Increased Creatinine and potassium Medications CPAPIndications:O bstructive sleep apnea CPAP machine for home use at pressure 14 cmw, full face mask x1/3month with a full face cushion x1/mo 1 Each 11 024 Active ketoconazole 2 % creamIndications: Intertrigo Apply thinly to the affected areas of the groin folds ( yeast rash) twice daily for 2-3 weeks, then use as needed 60 g 025 Active cyanocobalamin 1,000 mcg/mL injectionIndicati ons:Vitamin B12 deficiency Inject 1 mL (1,000 mcg) intramuscular every 4 weeks. 4 mL 11 025 Active empagliflozin (Jardiance) 10 mg tabletIndications :Diabetes mellitus without complication (HC) TAKE 1 TABLET BY MOUTH DAILY 30 Tablet 025 Active isosorbide dinitrate 10 mg tabletIndications :Acute HFrEF (heart failure with reduced ejection fraction) (HC) Take 1 Tablet (10 mg) by mouth three times daily. 270 Tablet 1 025 Active vit-min eye [id number] mg (PreserVision AREDS) capsuleIndication s:Nutritional deficiency TAKE 1 TABLET BY MOUTH TWICE DAILY 180 Capsule 3 025 Active loperamide 2 mg tabletIndications :Chronic diarrhea Take 4mg by mouth with 1st loose stool, then 2mg with each subsequent loose stool. Max 16 mg in 24 hrs 48 Tablet 1 025 Active potassium chloride 20 mEq extended-release tablet (part/cryst)Indic ations:Hypokalemi a 1 tablet p.o. twice daily for 4 days, then 1 daily. 100 Tablet 3 025 Active blood sugar diagnostic (OneTouch Verio test strips) stripIndications: Diabetes mellitus without complication (HC) As directed. Test one time daily. 100 Each 3 025 Active lancetsIndication s:Diabetes mellitus without complication (HC) As directed. Test one time per day. 100 Each 025 Active Cetirizine (ZyrTEC) 10 mg capIndications:Pr uritus 1 tablet p.o. daily. 90 Capsule 3 025 Active ferrous sulfate 325 mg (65 mg iron) tabletIndications :Iron deficiency anemia, unspecified iron deficiency anemia type 1 tablet p.o. every other day before breakfast. 45 Tablet 3 025 Active True Metrix Glucose Test Strip stripIndications: Diabetes mellitus type 2, noninsulin dependent (HC) E11.9 NIDDM type II - Test 1 time/day 100 Each 025 Active triamcinolone 0.1 % ointmentIndicatio ns:Chronic eczema APPLY TOPICALLY TO AFFECTED AREA(S) TWICE DAILY NOT TO EXCEED 14 DAYS WITHOUT INTERRUPTION ON ANY ONE LOCATION 80 g 025 Active nystatin powder powderIndications :Yeast dermatitis Apply 1 Strip topically to affected area(s) three times daily. As needed. 60 g 3 07/02/2 025 Active allopurinoL (ZYLOPRIM) 100 mg tabletIndications :Hyperuricemia Take 2 Tablets (200 mg) by mouth once daily. 90 Tablet 1 Active hydrALAZINE (APRESOLINE TABLET) 50 mg tabletIndications :Acute HFrEF (heart failure with reduced ejection fraction) (HC) Take 1 Tablet (50 mg) by mouth three times daily. 90 Tablet Active propylene glycoL (Systane Balance) 0.6 % ophthalmic solutionIndicatio ns:Dry eyes One drop both eyes three times daily as needed, dry eyes. 10 mL 11 Active miscellaneous medical supply miscIndications:B ilateral lower extremity edema Compression wraps with straps, 30 to 50 mmHg, knee to ankle. 1 Each 3 Active metoprolol succinate (TOPROL XL) 50 mg sustained-release tabletIndications :Chronic heart failure with preserved ejection fraction (HC) TAKE 1 TABLET BY MOUTH DAILY 90 Tablet Active bumetanide (BUMEX) 2 mg tabletIndications :Stage 3a chronic kidney disease (HC) Take 1 Tablet (2 mg) by mouth once daily in the morning. 90 Tablet Active traZODone (DESYREL) 50 mg tabletIndications :Major neurocognitive disorder, due to frontotemporal lobar degeneration, with behavioral disturbance, moderate (HC),Anxiety Take 0.5 Tablets (25 mg) by mouth at bedtime. May also take 0.5 Tablets (25 mg) 2 times daily if needed for Anxiety (irritability, agitation). 30 Tablet 2 Active sertraline (ZOLOFT) 100 mg tabletIndications :Major neurocognitive disorder, due to frontotemporal lobar degeneration, with behavioral disturbance, moderate (HC) Take 1 Tablet (100 mg) by mouth once daily in the morning. 90 Tablet 3 Active vancomycin (VANCOCIN) 125 mg capsuleIndication s:C. difficile colitis Take 1 Capsule (125 mg) by mouth four times daily for 10 days. 40 Capsule 025 2024 Active acetaminophen (TYLENOL EXTRA STRGTH) 500 mg tabletIndications :Pain Take 2 Tablets (1,000 mg) by mouth two times daily. Max acetaminophen dose: 3000mg in 24 hrs. 200 Tablet 3 025 Active metoprolol succinate (TOPROL XL) 50 mg sustained-release tabletIndications :Chronic heart failure with preserved ejection fraction (HC) Take 1 Tablet (50 mg) by mouth once daily. 90 Tablet 3 024 2024 Discontinued allopurinoL (ZYLOPRIM) 100 mg tabletIndications :Hyperuricemia Take 2 Tablets (200 mg) by mouth once daily. 90 Tablet 3 025 2024 Discontinued(* Availability/F ormulary change/Cost of medication) hydrALAZINE 50 mg tabletIndications :Acute HFrEF (heart failure with reduced ejection fraction) (HC) Take 1 Tablet (50 mg) by mouth three times daily. 90 Tablet 3 025 2024 Discontinued(* Availability/F ormulary change/Cost of medication) acetaminophen 500 mg tabletIndications :Pain Take 2 Tablets (1,000 mg) by mouth every 8 hours if needed for Pain. Max acetaminophen dose: 4000mg in 24 hrs. 200 Tablet 1 025 2024 Discontinued(R eorder (E-cancel not sent)) triamcinolone 0.1 % ointmentIndicatio ns:Chronic eczema Apply topically to affected area(s) two times daily. Not to exceed 14 days without interruption on anyone location. 80 g 1 025 2024 Discontinued bumetanide 2 mg tabletIndications :Stage 3a chronic kidney disease (HC) 2 tablets (4 mg) p.o. twice daily thru 04/19, and then back to 1 tablet twice daily. 025 2024 Discontinued(R eorder (E-cancel not sent)) sertraline 100 mg tabletIndications :Major neurocognitive disorder, due to frontotemporal lobar degeneration, with behavioral disturbance, moderate (HC) Take 1.5 Tablets (150 mg) by mouth once daily in the morning. Further refills will be prescribed during an appointment 135 Tablet 025 2024 Discontinued(* Medication adjustment) Hospital, Clinic, or Other Facility Administered Medication Ordered Dose Route Frequency Start Date End Date Status cyanocobalamin (VITAMIN B12) 1,000 mcg/mL injection 1,000 mcgIndications:Vitam in B12 deficiency 1000 mcg IM Q 4 WEEKS (28 DAYS) 10/28/2024 09/28/2025 Active Active Problems Problem Noted Date Diagnosed Date Major neurocognitive disorde r, due to frontotemporal lobar degeneration, with behavioral disturbance, moderate vs. Lewy Body Dementia(HC) 05/02/2025 Alcohol use disorder, modera te, in early remission since 10/202405/02/2025 Dysplasia of trochlea of femur 03/25/2025 Gout [...] Recent encounter dx: 03/13/25: Discharged Inpatient - [facility] (from [facility]) 03/05/25: Appointment - [facility] Recent notes: 03/16/25: Discharge Summary Note - Note by Margarita Gauthier (from [facility]) ... [+] Her angiogram was neg for [...] - Note by Pinky Salinas MD (from [facility]) ... [+] Underwent bilateral heart cath on 12/09 demonstrating patent epicardial coronaryarteries, mild to moderate pulmonary hypertension. 03/13/25: H&P - WALLOWA, PINKY SALINAS MD, 03/13/2025 by ASHUTOSH GONZALES ... [+] [...] fract ion) 01/13/2025 Overview (03/25/2025): -Admitted to [facility] for acute HFrEF in November 2024 x 8 days Echocardiogram EF 39%, hypokinetic inferior wall, severe MR/TR, moderately reduced systolic RV function. Of note, she also had skin graft done 12/03 for her diabetic foot ulcer. In emergency department hemoglobin 11.7, creatinine 1.3, troponin I 0.02, proBNP 88925. CXR with mild pulmonary edema. Underwent bilateral [...] cancer 12/23/2024 Overview (12/23/2024): - 2013, Right sabianist, BCC, MOHS Diabetes mellitus type 2, noninsulin [...] encounter dx: 01/09/25: Support OP Encounter - [facility] 01/09/25: Appointment - [facility] 01/07/25: Support OP Encounter - [facility] 01/05/25: Support OP Encounter - [facility] 12/25/24: HOV - [facility] Recent notes: 12/17/24: Progress Notes - Nursing [...] AHI- 52 FFM heated hose 09/17/20 19 Adenomatous colon polyp 06/15/2018 Overview (09/20/2023): Colonoscopy 06/2018 polyp, repeat in 5 years Colonoscopy 09/2023 multiple large polyps, repeat in 3 years History obsessive-compulsive and hoarding disorders better explained by cognitive disorder 09/19/2017 Gait instability 08/18/2017 Overview (03/25/2025): [...] acut e respiratory syndrome coronavirus 2 (SARS-CoV-2) 03/25/20252 05/2025 Laceration of scalp 03/25/2025 04/01/20 Overview (03/25/2025): [...] predniSONE Recent encounter dx: 03/07/23: Appointment - [facility] Recent notes: 02/17/25: Progress Notes by Ashutosh [...] 03/08/2021 07/20/2023 Type 2 diabetes mellitus, wi viky long-term current use of insulin 11/26/2020 09/07/2023 Heart failure with preserved ejection fraction 12/27/2019 01/13/2025 History of hoarding disorder 08/16/2018 05/02/2025 Compulsive behaviors 08/16/2018 020 Compulsive behaviors 05/15/2018 018 Lumbar radiculopathy, left 12/15/2017 0 05/23/2018 Alcohol dependence 03/14/2014 Syncope and collapse 03/06/2014 023 Hyponatremia 03/06/2014 09/07/2023 Shingles 12/22/2009 05/04/2011 Type II or unspecified type diabetes mellitus without mention of complication, not stated as uncontrolled 03/07/2008 12/03/2024 MCI (mild cognitive impairment) 05/02/2025 Encounters Date Type Department Care Team Description 05/28/2025 11:30 AM CDT Home Care Visit [facility] [address] [place] [address] Shahnaz Calvillo RN SN - OASIS DISCHARGE 05/28/2025 Telephone [facility] [address] [place] [address] Ashutosh Gonzales MD Results 05/27/2025 12:30 PM CDT Office Visit [facility] [address] [place] [address] Marquis Valentine MD Follow Up; Medication Management (bad-pain) 05/26/2025 8:15 AM CDT Orders Only [facility] [address] [place] [address] Lab, [place] <No scans attached> 05/26/2025 Telephone [facility] [address] [place] [address] Marquis Valentine MD Follow Up (FYI) 05/26/2025 Travel 05/23/2025 11:00 AM CDT Office Visit [facility] [address] [place] [address] Sandro Smyth, AuD Hearing Aid 05/22/2025 1:30 PM CD[place] [address] [facility] [address] [place] [address] Elaina Sam MD Follow Up (GEN CARDS 3MO F/U/DX: I50.21 (ICD-10-CM) - Acute HFrEF (heart failure with reduced ejection fraction) (HC). ECHO 05/14. //Pt states she is doing well cardiac spencer) 05/22/2025 Orders Only [facility] [address] [place] [address] Ashutosh Gonzales MD <No scans attached> 05/22/2025 Home Care Visit [address] [phone] Shahnaz Calvillo RN CARE COORDINATION 05/22/2025 Telephone [facility] [address] [place] [address] Ashutosh Gonzales MD FYI 05/22/2025 Travel 05/21/2025 10:15 AM CDT Home Care Visit [address] [address] Ric Ford, RAILROAD CAR INSPECTOR RAILROAD CAR INSPECTOR - DISCIPLINE DISCHARGE 05/21/2025 Home Care Visit [address] [address] Ric Ford, RAILROAD CAR INSPECTOR CARE COORDINATION 05/20/2025 11:30 AM CDT Home Care Visit [address] [address] Shahnaz Calvillo RN SN - HOME VISIT 05/19/2025 Telephone [facility] [address] [place] [address] Ashutosh Gonzales MD Medication Management 05/19/2025 Telephone [facility] [address] [place] [address] Sandro Smyth, AuD 05/19/2025 Refill [facility] [address] [place] [address] Ashutosh Gonzales MD Refill Request (Metoprolol Succinate, Metformin) 05/15/2025 1:15 PM CDT Home Care Visit [facility] [address] [place] [address] iRc Ford, RAILROAD CAR INSPECTOR RAILROAD CAR INSPECTOR - REASSESSMENT 05/15/2025 Home Care Visit [facility] [address] [place] [address] Ric Ford, RAILROAD CAR INSPECTOR CARE COORDINATION 05/14/2025 2:00 PM CDT Ancillary Procedure [facility] [place] [facility] [address] [place] [address] 05/14/2025 Orders Only [facility] [address] [place] [address] Ashutosh Gonzales MD <No scans attached> 05/14/2025 Telephone [facility] [address] [place] [address] Ashutosh Gonzales MD 05/14/2025 Telephone [facility] [address] [place] [address] Shahnaz Calvillo, radio mechanic helper (Eye drops and leg wraps) 05/13/2025 3:30 PM CDT Home Care Visit [facility] [address] [place] [address] Naren Byrne, PT PT - DISCIPLINE DISCHARGE 05/13/2025 11:30 AM CDT Home Care Visit [facility] [address] [place] [address] Shahnaz Calvillo, RITO SN - HOME VISIT 05/13/2025 Travel 05/12/2025 Refill [facility] [address] [place] [address] Ashutosh Gonzales MD Refill Request (Hydralazine, Allopurinol) 05/08/2025 10:00 AM CDT Home Care Visit [facility] [address] [place] [phone] Ric Ford SLP RAILROAD CAR INSPECTOR - HOME VISIT 05/08/2025 Home Care Visit [facility] [address] [place] [phone] Shahnaz Calvillo, RITO CARE COORDINATION 05/07/2025 9:30 AM CDT Home Care Visit [place] [id number] [place] [phone] Shahnaz Calvillo, RITO SN - HOME VISIT 05/07/2025 9:00 AM CDT Home Care Visit [place] [address] [place] [phone] Margaret Hobbs, BARK GRINDER PT - HOME VISIT 05/07/2025 Orders Only [facility] [address] [place] [address] Ashutosh Gonzales MD <No scans attached> 05/07/2025 Telephone [facility] [address] [place] [address] Shahnaz Calvillo, radio mechanic helper (Nystatin order) 05/07/2025 Home Care Visit [place] [id number] [place] [phone] Margaret Hobbs, BARK GRINDER CARE COORDINATION 05/05/2025 Refill [facility] [address] [place] [address] Ashutosh Gonzales MD Refill Request (Triamcinolone) 05/02/2025 2:15 PM CDT Home Care Visit [place] [id number] [place] [phone] Naren Byrne, PT PT - HOME VISIT 05/02/2025 11:00 AM CDT Office Visit [facility] [address] [place] [address] Sandro Smyth, AuD Hearing Aid 05/02/2025 10:00 AM CDT Office Visit [facility] [address] [place] [address] Marquis Valentine MD Follow Up; Medication Management 05/02/2025 Home Care Visit [facility] [address] [place] [address], [place] [address] Naren Byrne, PT CARE COORDINATION 05/02/2025 Travel 05/01/2025 11:30 AM CDT Home Care Visit [facility] [address] [place] [address], [place] [address] Ric Ford, RAILROAD CAR INSPECTOR RAILROAD CAR INSPECTOR - HOME VISIT 04/29/2025 12:15 PM CDT Home Care Visit [facility] [address] [place] [address], [place] [address] Shahnaz Calvillo, RITO SN - HOME VISIT 04/29/2025 9:00 AM CDT Home Care Visit [facility] [address] [place] [address], [place] [address] Naren Byrne, PT PT - HOME VISIT 04/29/2025 Home Care Visit [facility] [address] [place] [address], [place] [address] Shahnaz Calvillo, RN CARE COORDINATION 04/29/2025 Home Care Visit [facility] [address] [place] [address], [place] [address] Naren Byrne, PT CARE COORDINATION 04/29/2025 Travel 04/25/2025 10:15 AM CDT Home Care Visit [facility] [address] [place] [address], [place] [address] Naren Byrne, PT PT - HOME VISIT 04/25/2025 Travel 04/24/2025 11:45 AM CDT Home Care Visit [facility] [address] [place] [address] Ric Ford, RAILROAD CAR INSPECTOR RAILROAD CAR INSPECTOR - HOME VISIT 04/24/2025 Home Care Visit [facility] [address] [place] [address] Ric Ford, RAILROAD CAR INSPECTOR CARE COORDINATION 04/23/2025 10:30 AM CDT Home Care Visit [facility] [address] [place] [address] Naren Byrne, PT PT - HOME VISIT 04/23/2025 9:00 AM CDT Home Care Visit [facility] [address] [place] [address] Yareli Jaime, COPPER PLATE LITHOGRAPHER COPPER PLATE LITHOGRAPHER - HOME VISIT 04/23/2025 Refill [facility] [address] [place] [address] Ashutosh Gonzales MD Refill Request (One touch test strips) 04/23/2025 Telephone [facility] [address] [place] [address] Ashutosh Gonzales MD Outside Order 04/23/2025 Orders Only [facility] [address] [place] [address] Ashutosh Gonzales MD <No scans attached> 04/22/2025 2:55 PM CDT Office Visit [facility] [address] [place] [address] Ashutosh Gonzales MD Follow Up 04/22/2025 Refill [facility] [address] [place] [address] Ashutosh Gonzales MD Refill Request (Certizine) 04/22/2025 Travel 04/21/2025 Telephone [facility] [address] [place] [address] Ashutosh Gonzales MD Medication Management (Diabetic Supplies) 04/19/2025 11:15 AM CDT Home Care Visit [facility] [address] [place] [address] Estella Abad RN SN - INITIAL ASSESSMENT 04/18/2025 Orders Only [facility] [address] [place] [address] Ashutosh Gonzales MD <No scans attached> 04/18/2025 Refill [facility] [address] [place] [address] Ashutosh Gonzales MD Refill Request (Preservision Cap Areds ) 04/17/2025 1:00 PM CDT Home Care Visit [facility] [address] [place] [phone] Ric Ford, RAILROAD CAR INSPECTOR RAILROAD CAR INSPECTOR - INITIAL ASSESSMENT 04/17/2025 10:00 AM CDT Home Care Visit [facility] [address] [place] [phone] Naren Byrne, PT PT - HOME VISIT 04/17/2025 Orders Only [facility] Scanner 1 scan: (1-Ord) 04/17/2025 04/17/2025 Orders Only [facility] Scanner 1 scan: (1-Ord) WALLOWAAZUCENA, 04/17/2025 04/17/2025 Home Care Visit [facility] [address] [place] [phone] Connie Saavedra, RITO CARE COORDINATION 04/17/2025 Refill [facility] [address] [place] [address] Renee Akers MD Refill Request; Error-please disregard 04/17/2025 Nurse Triage [facility] [address] [place] [phone] Ashutosh Gonzales MD Weight 04/17/2025 Nurse Triage [facility] [address] [place] [address] Ashutosh Gonzales MD Error-please disregard 04/17/2025 Telephone [facility] [address] [place] [address] Naren Byrne, PT Home Care 04/17/2025 Home Care Visit [facility] [address] [place] [address] Ric Ford, RAILROAD CAR INSPECTOR CARE COORDINATION 04/17/2025 Home Care Visit [facility] [address] [place] [address] Karrie Ohara, PT CARE COORDINATION 04/17/2025 Travel 04/16/2025 Orders Only [facility] [address] [place] [address] Ashutosh Gonzales MD <No scans attached> 04/15/2025 Telephone [facility] [address] [place] [address] Ashutosh Gonzales MD Home Care (Orders for home care services) 04/15/2025 Plan of Care Documentation [facility] [address] [place] [address] 04/14/2025 1:00 PM CDT Home Care Visit [facility] [address] [place] [address], [place] [address] Karrie Ohara, PT PT - OASIS START OF CARE 04/11/2025 Refill [facility] [address] [place] [address] Ashutosh Gonzales MD Refill Request (Preservision Areds) 04/09/2025 Refill [facility] [address] [place] [address] Ashutosh Gonzales MD Refill Request (Cetirizine, Bumetanide, Jardiance, Gemtesa, Isosorbide Dinitrate, Magnesium Oxide) 04/08/2025 Telephone [facility] [address] [place] [address] Ashutosh Gonzales MD Results 04/08/2025 Telephone [facility] [address] [facility] [address] [place] [phone] Karla Falcon PA Appointment 04/07/2025 8:45 AM CDT Orders Only [facility] [address] [place] [address] Lab, [place] Lab 04/07/2025 Telephone [facility] [address] [place] [address] Ashutosh Gonzales MD Results 04/07/2025 Travel 04/04/2025 Telephone [facility] [address] [place] [address] Ashutosh Gonzales MD Questions (Signed med list..* No order type specified *...) 04/02/2025 Telephone [facility] [address] [facility] [address] [place] [phone] Juli Menjivar CNS Cardiology Appointment ([facility] Appointment) 04/02/2025 Telephone [facility] [address] [place] [address] Ashutosh Gonzales MD ORDER (MEDICATION LIST) 04/01/2025 2:05 PM CDT Office Visit [facility] [address] [place] [address] Ashutosh Gonzales MD Follow Up 04/01/2025 Travel 04/01/2025 Telephone [facility] [address] [place] [address] Ashutosh Gonzales MD Appointment 03/24/2025 Telephone [facility] [address] [place] [address] Ashutosh Gonzales MD Form (Follow up) 03/24/2025 Refill [facility] [address] [place] [address] Marquis Valentine MD Refill Request (Sertraline HCL oral tablet 100mg) 03/19/2025 10:15 AM CDT Home Care Visit [facility] [address] [place] [phone] Tamela Stone, PT PT - NOT TAKEN UNDER HOME CARE - HOME VISIT 03/18/2025 Orders Only [facility] [address] [place] [address] Juli Menjivar, MINING TECHNICIAN <No scans attached> 03/18/2025 Telephone [facility] [address] [facility] [address] [place] [address] Karla Falcon PA Cardiology Appointment 03/17/2025 2:30 PM CDT Office Visit [facility] [address] [place] [address] Ashutosh Gonzales MD Hospital F/U ([facility], 03/13/2025 - 03/16/2025) 03/17/2025 Travel 03/15/2025 Refill [facility] [address] [place] [address] Ashutosh Gonzales MD Refill Request (Trulicity) 03/14/2025 Orders Only [facility] Scanner 1 scan: (1-Ord) W[place]OWA, MR HEAD/BRAIN WO CON, 03/14/2025 03/13/2025 Orders Only [facility] Scanner 1 scan: (1-Ord) [place], XR CHEST 1V PORTABLE, 03/13/2025 03/13/2025 Orders Only [facility] Scanner 1 scan: (1-Ord) [facility], HEAD/BRAIN WO, 03/13/2025 03/13/2025 Telephone [facility] [address] [place] [address] Ashutosh Gonzales MD inform (wants to inform Dr of a fall) 03/13/2025 Nurse Triage [facility] [address] [place] [address] Ashutosh Gonzales MD Head Injury 03/12/2025 Telephone [facility] [address] [place] [address] Ashutosh Gonzales MD DROPPED OFF COMMUNICATION PRIOR TO 03/17/2025 APPT. 03/07/2025 10:00 AM CDT Office Visit [facility] [address] [place] [address] Sandro Smyth, AuD Hearing Aid 03/07/2025 9:00 AM CDT Office Visit [facility] [address] [place] [address] Marquis Valentine MD Mental Health Intake 03/07/2025 Travel 03/05/2025 2:00 PM CDT Office Visit [facility] [address] [place] [address] [address] [place] [address] Case, MÓNICA Shrestha Follow Up (POST HOSPITAL FOLLOW UP- [facility]. /Pt states feeling well, SOB, fatigued, & lightheaded: I feel like I'm not quite myself. Like I'm just passing through.mentioned having a full body rash being seen by Derm. ) 03/05/2025 Travel from Last 3 Months Immunizations Immunization Administration Dates Next Due AMB Influenza, IIV3 (Age >=3 years)(Flu Clinic Only) 08/25/2010 COVID-19 vaccine ([employer]Jigg[employer]-Bio NTech 30mcg/0.3mL) 12YO+ RONNY-SUCROSE PF, MDV 02/18/2022 COVID-19 vaccine ([employer] NTech 30mcg/0.3mL) PF, MDV 08/05/2021,01/16/2021,12/26/2020 Influenza A [...] Seasonal affective disorder Daughter Alcoholism Father Heart attack Father at 59 years old Alcoholism Mother just dependent to soothe her anxiety Alzheimer's disease Mother Depression Mother Suicide Attempts Other Completed i n maternal great-grandmother Anesthesia Problem No Family History Cancer No Family History Cancer-breast No Family History Cancer-colon No Family History Cancer-ovarian No Family History Cancer-prostate No Family History Relation Name Status Comments Brother Alive Daughter Alive Father (Age 50) PA Mother Alive Other Social History Tobacco Use Types Packs/Day Years Used Date Smoking Tobacco: Former Cigarettes 0.3 5 0 11/06/1996 - 11/06/2001 Smokeless Tobacco: Never Tobacco Cessation:Counseling Given: No Alcohol Use Standard Drinks/Week Comments Not Currently 0 (1 standard drink = 0.6 oz pur e alcohol) PHQ-2 Answer Date Recorded PHQ-2 TOTAL SCORE 1 05/27/2025 Social Connections Answer Date Recorded Do you [...] on file Legal Sex Female 5:26 AM PMO CONSULTANT Gender Identity Not on file Sexual Orientation [...] Sign Reading Time Taken Comments Blood Pressure 115/74 05/28/2025 1:14 PM CDT Pulse 86 05/28/2025 1:14 PM CDT Temperature 36.3 C (97.3 F) 05/28/2025 1:14 PM CDT Respiratory Rate 16 05/28/2025 1:14 PM CDT Oxygen Saturation 97% 05/28/2025 1:1 4 PM CDT Inhaled Oxygen Concentration - - Weight 82.6 kg (182 lb) 05/28/2025 1:14 PM CDT Facility reported Height 157.5 cm (5' 2) 05/22/2025 1:30 PM CDT Body Mass Index 33.29 05/22/2025 1:30 PM CDT Plan of Treatment Upcoming Encounters Date Type Department Care Team (Late st Contact Info) Description 06/18/2025 3:00 PM CDT Office Visit [facility] [address] [place] [address] Sabino Conway MD [address] [place] [address] 07/01/2025 10:00 AM CDT Office Visit [facility] [address] [place] [address] Marquis Valentine MD [address] [facility] [place] [address] 08/12/2025 11:00 AM CDT Office Visit [facility] [address] [facility] [place] [address] Prince Baer MBBS [address] [facility] [address] [place] [address] 08/21/2025 10:30 AM CDT Office Visit [facility] [address] [facility] [address] [place] [address] Elaina Sam MD [address] [place] [address] 09/08/2025 2:15 PM PMO CONSULTANT Nurse/Clinic Staff Only [facility] [address] [facility] [place] [address] 10/06/2025 2:15 PM PMO CONSULTANT Nurse/Clinic Staff Only [facility] [address] [facility] [place] [address] 11/03/2025 2:15 PM PMO CONSULTANT Nurse/Clinic Staff Only [facility] [address] [place] [address] Health Maintenance Due Date Last Done Comments Medicare Wellness for age 65+ 09/07/2024 09/07/2023, 07/28/2022, 03/07/2022, Additional history exists COVID-19 vaccine series ( season) 2025 08/27/2024, 10/06/2023, 03/06/2023, Additional history exists Influenza Vaccine (#1) 2025 , 07/10/2020, 07/21/2017, Additional history exists BMI (ht and wt on same day) for age 18+ 05/22/2026 05/22/2025, 03/07/2025, 03/05/2025, Additional history exists Depression screening for age 12+ 05/27/2026 05/27/2025, 05/02/2025, 03/07/2025, Additional history exists Tetanus booster 08/07/2030 08/07/2020, 12/2009, 04/12/2004 Zoster (shingles) series for age 50+ Completed 03/30/2018, 01/04/2018, 01/23/2014, Additional history exists Pneumococcal series for age 50+ Completed 03/07/2023, 10/08/2014, 02/12/2014, Additional history exists RSV vaccine for adults or Completed 07/21/2023 DEXA/DXA scan for age 65+ Completed 2023, 06/20/2019, 06/17/2011 Hepatitis C screening for age 18-79 Completed 01/09/2025, 07/10/2020 Hepatitis B series for 19+ Aged Out N o longer eligible based on patient's age to complete this topic Procedures Procedure Name Priority Date/Time Associated Diagnosis Comments CLOSTRIDIUM DIFFICILE TOXIN B QL STOOL PCR(QUEST)REFLEX REALTIME Routine 05/26/2025 11:46 AM CDT CLOSTRIDIOIDES DIFFICILE TOXIN PCR Routine 05/26/2025 11:46 AM CDT Chronic diarrhea CRYPTOSPORIDIUM GIARDIA RAPID ANTIGEN Routine 05/26/2025 11:46 AM CDT Chronic diarrhea STOOL PATHOGEN MULTIPLEX PCR PANEL Routine 05/26/2025 11:43 AM CDT Chronic diarrhea 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, without long-term current use of insulin (HC) ECHO TTE COMPLETE WO CONTRAST Routine 05/14/2025 2:55 PM CDT Acute HFrEF (heart failure with reduced ejection fraction) (HC) TSH WITH REFLEX Routine 04/22/2025 4:16 PM CDT Cold intolerance HEMOGLOBIN Routine 04/22/2025 4:16 PM CDT Anemia of unknown etiology FERRITIN Routine 04/22/2025 4:16 PM CDT Anemia of unknown etiology VITAMIN B12 Routine 04/22/2025 4:16 PM CDT Anemia of unknown etiology IRON PLUS IRON BINDING CAP Routine 04/22/2025 4:16 PM CDT Anemia of unknown etiology BASIC METABOLIC PANEL Routine 04/22/2025 4:16 PM CDT Hyponatremia SCAN-ELECTROCARDIOGRAM EKG 04/17/2025 12:00 AM CDT SCAN-LABORATORY REPORT 12:[address] [facility] ONLY POC DIP (QUEST) Routine 04/07/2025 [...] AM CDT SCAN-CT INTERPRETATION 12:00 AM CDT ANTI HCV Routine 01/09/2025 2:12 PM PMO CONSULTANT HFrEF (heart failure with reduced ejection fraction) (HC) Stage 3a chronic kidney disease (HC) Proteinuria, unspecified type Generalized edema Hyperuricemia XR DXA BONE DENSITY 2 SITES AXIAL Routine 09/12/2024 2:37 PM PMO CONSULTANT Asymptomatic postmenopausal state from Last 3 Months or Most Recently Relevant to Health Maintenance Results * CRYPTOSPORIDIUM GIARDIA RAPID ANTIGEN (05/26/2025 11:46 AM CDT) Pathologist [facility] GIARDIA AND CRYPTOSPORIDIUM ANTIGEN PANEL SEE NOTE [employer] Markus Martinez Comment: CRYPTOSPORIDIUM ANTIGEN, EIA Micro Number: [id number] Test Status: Final Specimen Source: Stool Specimen Quality: Adequate Cryptosporidium: Not Detected Reference Range: Not Detected NOTE: Due to intermittent shedding, one negative sample does not necessarily rule out the presence of a parasitic infection. GIARDIA AND CRYPTOSPORIDIUM ANTIGEN PANEL SEE NOTE Press About UsClaudio Martinez Comment: GIARDIA AG, EIA, STOOL Micro Number: [id number] Test Status: Final Specimen Source: Stool Specimen Quality: Adequate Giardia Result 1: Not Detected Reference Range: Not Detected NOTE: Due to intermittent shedding, one negative sample does not necessarily rule out the presence of a parasitic infection. Stool STOOL SPECIMEN / Unknown 05/26/2025 11:46 AM CDT 05/26/2025 11:47 AM CDT Ashutosh Gonzales MD MICROBIOLOGY Final Result [employer] [facility] [address] [place] [address], [facility] [address] [place] [address] * (ABNORMAL) CLOSTRIDIUM DIFFICILE TOXIN B QL STOOL PCR(Accolo)REFLEX REALTIME (05/26/2025 11:46 AM CDT) Pathologist [facility] CLOSTRIDIUM DIFFICILE TOXINB,QL REAL TIME PCR DETECTED( A) NOT DETECTED [facility] [email or web address] Comment: The stool sample is POSITIVE for toxigenic C. difficile. This result is suggestive of C. difficile infection (CDI) if accompanied by appropriate clinical symptoms. Simultaneous testing does not identify a genetic marker of the hypervirulent 027/NAP1/BI strain of toxigenic C. difficile. This test is for use only with liquid or soft stools; performance characteristics of other clinical specimen types have not been established. This assay was performed by Unified Inboxpert(R) PCR. The performance characteristics of this assay have been determined by [employer]. Performance characteristics refer to the analytical performance of the test. For additional information, please refer to [email or web address]/faq/[email or web address] (This link is being provided for informational/educational purposes only.) 05/26/2025 11:4 6 AM CDT 05/26/2025 11:47 AM CDT Ashutosh Gonzales MD LABORATORY Final Result Performing Organization Address [facility]/ZIP Co de Phone Number [employer] [address] [address], Press About Us[address] [address] * (ABNORMAL) CLOSTRIDIOIDES DIFFICILE TOXIN PCR (05/26/2025 11:46 AM CDT) CLOSTRIDIUM DIFFICILE TOXIN/GDH W/REFL TO PCR SEE NOTE(A) Press About UsAngelique Martinez Comment: CLOSTRIDIUM DIFFICILE TOXIN/GDH W/REFL TO PCR Micro Number: [id number] Test Status: Final Specimen Source: Stool Specimen Quality: Adequate GDH Antigen: Detected Toxin A and B: Not Detected COMMENT: Indeterminate. Specimen forwarded for toxigenic C. difficile PCR testing. For additional information, please refer to [email or web address]/faq/[email or web address] (This link is being provided for informational/educational purposes only.) Stool STOOL SPECIMEN / Unknown 05/26/2025 11:46 AM CDT 05/26/2025 11:47 AM CDT Ashutosh Gonzales MD MICROBIOLOGY Final Result Performing Organization Address City/[facility]/ZIP Co de Phone Number [employer] [address] [address], [facility] [address] [place] [address] * STOOL PATHOGEN MULTIPLEX PCR PANEL (05/26/2025 11:43 AM CDT) Pathologist [facility] Campylobacter NOT Detected NOT Detected 05/26/2025 9:47 PM CDT [facility] Salmonella NOT Detected NOT Detected 05/26/2025 9:47 PM CDT [facility] Shigella NOT Detected NOT Detected 05/26/2025 9:47 PM CDT [facility] Vibrio NOT Detected NOT Detected 05/26/2025 9:47 PM CDT [facility] Yersinia Enterocolitica NOT Detected NOT Detected 05/26/2025 9:47 PM CDT [facility] Shiga Toxin 1 NOT Detected NOT Detected 05/26/2025 9:47 PM CDT [facility] Shiga Toxin 2 NOT Detected NOT Detected 05/26/2025 9:47 PM CDT [facility] Norovirus NOT Detected NOT Detected 05/26/2025 9:47 PM CDT [facility] Rotavirus NOT Detected NOT Detected 05/26/2025 9:47 PM CDT [facility] Stool STOOL SPECIMEN / Unknown Non-Blood / Unknown 05/26/2025 11:43 AM CDT 05/26/2025 11:43 AM CDT Narrative [facility] - 05/26/2025 9:47 PM CDT This test is a Culture Independent Diagnostic Test (CIDT) therefore isolates are not available for susceptibility testing. Antibiotic treatment is often contraindicated and may be detrimental in cases of enteric infections, thus routine susceptibility testing is not recommended. us Ashutosh Gonzales MD MICROBIOLOGY Final Result [facility] [address] [place] [address], [place] * ECHO TTE COMPLETE WO CONTRAST (05/14/2025 2:55 PM CDT) EJECTION FRACTION 48 % PEAK TR VELOCITY 3.3 m/s LVEDD 5.1 cm MITRAL VALVE MR ERO 62 mm2 EJECTION FRACTION 45 - 50% Anatomical Region Laterality Modality Ultrasound 05/14/2025 2:19 PM CDT Narrative 05/14/2025 3:46 PM CDT ECHOCARDIOGRAM FRANCES MEEK : 1945 79 years Study Date: 05/14/2025 2:19:29 PM Gender: F BP: 0/0 mmHg Height: 157.00 cm BSA: 1.81 m Weight: 80.00 kg Tech: [facility] Referring MD: KARLA PORTILLO CASE Site: [facility] Reading Location: Mobile-OP Patient Location: Outpatient. Procedure: 2D, Color Doppler and Spectral Doppler. Indication for study: Heart Failure Cardiac Rhythm: Regular.Study quality: Good. Final Impressions: 1. Normal left ventricular size, mildly increased wall thickness, mildly reduced global systolic function, calculated EF of 48 %. 2. Severely enlarged left atrium. 3. The mitral valve is sclerotic, moderate mitral regurgitation (eccentric jet). 4. Tricuspid valve is normal, moderate tricuspid regurgitation. Comparison Compared to prior exam of 12/03/24: - MR and TR have decreased. Chamber Sizes and Function Normal left ventricular size, mildly increased wall thickness, mildly reduced global systolic function, calculated EF of 48 %. Regional wall motion assessment not well-visualized. Left atrial size is severely enlarged. Right ventricular cavity size is normal, global systolic RV function is normal. RV wall thickness is normal. The right atrium is moderately enlarged. Right atrial volume index is 51 ml/m . Right atrial area is 25 cm . The pulmonary artery is of normal size and origin. The sinus of Valsalva is normal sized. The ascending aorta is normal sized. Valves, RV Pressures and Diastolic Function The aortic valve is normal in structure and trileaflet, no stenosis and trivial regurgitation. The mitral valve is sclerotic, moderate mitral regurgitation. Indeterminate pattern of LV diastolic filling. The tricuspid valve is normal in structure, moderate tricuspid regurgitation. The tricuspid regurgitant velocity is 3.2 m/s, the estimated right ventricular systolic pressure is 42 mmHg plus right atrial pressure. The pulmonic valve is normal. Trace pulmonary regurgitation. Masses, Effusion, Shunts There is no pericardial effusion. The inferior vena cava is normal sized, respiratory size variation greater than 50%. No left to right shunting was detected by limited color flow Doppler interrogation of the interatrial septum. MEASUREMENTS AND CALCULATIONS 2-D Measurements and LV Function: LVID (d) 5.1 cm Planimetered EF 48 % LVID (s) 3.4 cm LV FS% (2D) 33 % IVS (d) 1.2 cm LVOT diameter 1.8 cm LVPW (d) 1.1 cm HR 74 bpm Ao Sinus 3.1 cm LA Vol index 54 ml/m2 Ao Sinus ULN 3.7 cm RA Vol index 51 ml/m2 Asc Ao 3.7 cm RA area 25 cm Asc Ao ULN 4.0 cm RV Basal Diam 4.8 cm LA 5.4 cm Diastology: Mitral Tissue Doppler Pulmonary veins E Peak 0.9 m/s e', Septum 0.09 m/s Pulm s 42.8 cm/s A Peak 0.6 m/s e', Lateral 0.10 m/s Pulm d 38.1 cm/s E/A 1.3 E/e' Average 9.34 Pulm s/d ratio 1.12 DT 243 msec Mitral Valve: MVA 3.1 cm MR ERO 0.62 cm MV P 1/2 70 msec MR Vol. 105 ml MR TVI 1.71 m Tricuspid Valve and estimated PA pressures: TR Vmax 3.2 m/s TAPSE 3.1 cm TR maxG 42 mmHg Pulmonic Valve: PV AT 90 msec . This study was interpreted by an [facility] accredited facility. Final Procedure Note Jason Alexandre MD - 05/14/2025 ECHOCARDIOGRAM FRANCES MEEK : 1945 79 years Study Date: 05/14/2025 2:19:29 PM Gender: F BP: 0/0 mmHg Height: 157.00 cm BSA: 1.81 m Weight: 80.00 kg Tech: [facility] Referring MD: KARLA PORTILLO CASE Site: [facility] Reading Location: Mobile-OP Patient Location: Outpatient. Procedure: 2D, Color Doppler and Spectral Doppler. Indication for study: Heart Failure Cardiac Rhythm: Regular.Study quality: Good. Final Impressions: 1. Normal left ventricular size, mildly increased wall thickness, mildlyreduced global systolic function, calculated EF of 48 %. 2. Severely enlarged left atrium. 3. The mitral valve is sclerotic, moderate mitral regurgitation(eccentric jet). 4. Tricuspid valve is normal, moderate tricuspid regurgitation. Comparison Compared to prior exam of 12/03/24: - MR and TR have decreased. Chamber Sizes and Function Normal left ventricular size, mildly increased wall thickness, mildlyreduced global systolic function, calculated EF of 48 %. Regional wallmotion assessment not well-visualized. Left atrial size is severelyenlarged. Right ventricular cavity size is normal, global systolic RVfunction is normal. RV wall thickness is normal. The right atrium ismoderately enlarged. Right atrial volume index is 51 ml/m . Right atrialarea is 25 cm . The pulmonary artery is of normal size and origin. Thesinus of Valsalva is normal sized. The ascending aorta is normal sized. Valves, RV Pressures and Diastolic Function The aortic valve is normal in structure and trileaflet, no stenosis andtrivial regurgitation. The mitral valve is sclerotic, moderate mitralregurgitation. Indeterminate pattern of LV diastolic filling. Thetricuspid valve is normal in structure, moderate tricuspid regurgitation.The tricuspid regurgitant velocity is 3.2 m/s, the estimated rightventricular systolic pressure is 42 mmHg plus right atrial pressure. Thepulmonic valve is normal. Trace pulmonary regurgitation. Masses, Effusion, Shunts There is no pericardial effusion. The inferior vena cava is normal sized,respiratory size variation greater than 50%. No left to right shunting wasdetected by limited color flow Doppler interrogation of the interatrialseptum. MEASUREMENTS AND CALCULATIONS 2-D Measurements and LV Function: LVID (d) 5.1 cm Planimetered EF 48 % LVID (s) 3.4 cm LV FS% (2D) 33 % IVS (d) 1.2 cm LVOT diameter 1.8 cm LVPW (d) 1.1 cm HR 74 bpm Ao Sinus 3.1 cm LA Vol index 54 ml/m2 Ao Sinus ULN 3.7 cm RA Vol index 51 ml/m2 Asc Ao 3.7 cm RA area 25 cm Asc Ao ULN 4.0 cm RV Basal Diam 4.8 cm LA 5.4 cm Diastology: Mitral Tissue Doppler Pulmonary veins E Peak 0.9 m/s e', Septum 0.09 m/s Pulm s 42.8 cm/s A Peak 0.6 m/s e', Lateral 0.10 m/s Pulm d 38.1 cm/s E/A 1.3 E/e' Average 9.34 Pulm s/d ratio 1.12 DT 243 msec Mitral Valve: MVA 3.1 cm MR ERO 0.62 cm MV P 1/2 70 msec MR Vol. 105 ml MR TVI 1.71 m Tricuspid Valve and estimated PA pressures: TR Vmax 3.2 m/s TAPSE 3.1 cm TR maxG 42 mmHg Pulmonic Valve: PV AT 90 msec . This study was interpreted by an [facility] accredited facility. Final Karla Falcon PA ECHO ORD Final Res ult * TSH WITH REFLEX (04/22/2025 4:16 PM CDT) TSH W/REFLEX TO FT4 1.98 0.40 - 4.50 mIU/L [facility] carlos a Martinez Blood BLOOD SPECIMEN / Unknown 04/22/2025 4:16 PM CDT 04/22/2025 4:16 PM CDT Ashutosh Gonzales MD CHEMISTRY Final Result [employer] [facility] [address] [place] [address], [place] [phone] [facility] [address] [place] [address] * (ABNORMAL) IRON PLUS IRON BINDING CAP (04/22/2025 4:16 PM CDT) Pathologist [facility] IRON, TOTAL 29(L) 45 - 160 mcg/dL [facility] od Juan IRON BINDING CAPACITY 370 250 - 450 mcg/dL (calc) [facility] % SATURATION 8(L) 16 - 45 % (calc) [facility] [place] Blood BLOOD SPECIMEN / Unknown 04/22/2025 4:16 PM CDT 04/22/2025 4:16 PM CDT us Ashutosh Gonzales MD CHEMISTRY Final Result Performing Organization Address [facility]/ZIP Co de Phone Number [facility] [address] [place] [address], [place] [phone] [facility] [address] [facility] [place] [address] * (ABNORMAL) HEMOGLOBIN (04/22/2025 4:16 PM CDT) HEMOGLOBIN 10.9(L) 11.7 - 15.5 g/dL [facility] Blood BLOOD SPECIMEN / Unknown 04/22/2025 4:16 PM CDT 04/22/2025 4:16 PM CDT us Ashutosh Gonzales MD HEMATOLOGY Final Result Performing Organization Address [facility] Co de Phone Number [employer] [facility] [address] [facility] [address], [place] [phone] [facility] [address] [facility] [place] [address] * FERRITIN (04/22/2025 4:16 PM CDT) FERRITIN 65 16 - 288 ng/mL [facility] Juan Blood BLOOD SPECIMEN / Unknown 04/22/2025 4:16 PM CDT 04/22/2025 4:16 PM CDT us Ashutosh Gonzales MD CHEMISTRY Final Result Performing Organization Address [facility]/ZIP Co de Phone Number [employer] [facility] [address] [place] [address], [place] [phone] [email or web address] [address] [place] [address] * VITAMIN B12 (04/22/2025 4:16 PM CDT) [facility] VITAMIN B12 574 200 - 1,100 pg/mL [facility] [email or web address] carlos a Martienz Blood BLOOD SPECIMEN / Unknown 04/22/2025 4:16 PM CDT 04/22/2025 4:16 PM CDT Ashutosh Gonzales MD CHEMISTRY Final Result [employer] [facility] [address] [place] [address], [place] [phone] [facility] [address] [place] [address] * (ABNORMAL) BASIC METABOLIC PANEL (04/22/2025 4:16 PM CDT) [facility] GLUCOSE 90 65 - 99 mg/dL [facility] Comment: Fasting reference interval UREA NITROGEN (BUN) 21 7 - 25 mg/dL [facility] CREATININE 1.51(H) 0.60 - 1.00 mg/dL [facility] EGFR 35(L) > OR = 60 mL/min/1.7 3m2 [facility] BUN/CREATININE RATIO 14 6 - 22 (calc) [facility] SODIUM 137 135 - 146 mmol/L [facility] POTASSIUM 3.9 3.5 - 5.3 mmol/L [facility] CHLORIDE 98 98 - 110 mmol/L [facility] CARBON DIOXIDE 28 20 - 32 mmol/L [facility] ELECTROLYTE BALANCE 11 7 - 17 mmol/L (calc) [facility] CALCIUM 9.2 8.6 - 10.4 mg/dL [facility] Blood BLOOD SPECIMEN / Unknown 04/22/2025 4:16 PM CDT 04/22/2025 4:16 PM CDT us Ashutosh Gonzales MD CHEMISTRY Final Result [facility] [address] [place] [address], [place] [phone] [facility] [address] [place] [address] * SCAN-LABORATORY REPORT (04/17/2025 12:00 AM CDT) us Scanner OTHER Final Result * SCAN-ELECTROCARDIOGRAM EKG (04/17/2025 12:00 AM CDT) us Scanner OTHER Final Result * (ABNORMAL) POCT Urinalysis Dipstick Only [[id number]] (04/07/2025 8:51 AM CDT) PH 5.5 5.0 - 8.0 [facility] SPECIFIC GRAVITY < OR = 1.005 1.001 - 1.035 [facility] Comment: Specific [place] values resulted are outside the analytical measurement range of this device. Recommend repeat/additional testing as clinically indicated. GLUCOSE TRACE(A) NEGATIVE [facility] BILIRUBIN NEGATIVE NEGATIVE [facility] KETONES NEGATIVE NEGATIVE [facility] OCCULT BLOOD NEGATIVE NEGATIVE [facility] PROTEIN TRACE(A) NEGATIVE [facility] NITRITE NEGATIVE NEGATIVE [facility] LEUKOCYTE ESTERASE TRACE(A) NEGATIVE [facility] Urine URINE SPECIMEN / Unknown 04/07/2025 8:51 AM CDT 04/07/2025 8:51 AM CDT us Ashutosh Gonzales MD URINE Final Result Performing Organization Address City/[facility]/ZIP Co de Phone Number [facility] [address] [place] [address], [place] [phone] [facility] [address] [place] [address] * (ABNORMAL) URINALYSIS MICROSCOPIC [28571.1] - routine (04/07/2025 8:50 AM CDT) RBC 0-2 0-2, None Seen /HPF 04/07/2025 2:41 PM CDT [facility] WBC 11-25(A) 0-2, 3-5, None Seen /HPF 04/07/2025 2:41 PM CDT [facility] BACTERIA None Seen None Seen, Rare, Few Bacteria/ HPF 04/07/2025 2:41 PM CDT [facility] EPITHELIAL CELLS None Seen None Seen, Few Epi/HPF 04/07/2025 2:41 PM CDT [facility] HYALINE CASTS 0-2 0-2, 3-5 /LPF 04/07/2025 2:41 PM CDT [facility] Urine URINE SPECIMEN / Unknown Non-Blood / Unknown 04/07/2025 8:50 AM CDT 04/07/2025 8:50 AM CDT us Ashutosh Gonzales MD URINE Final Result [facility] [address] [place] [address], [place] * URINE CULTURE [87415.2] (04/07/2025 8:50 AM CDT) CULTURE <10,000 CFU/mL multiple organisms 04/08/2025 2:04 PM CDT [facility] Urine URINE SPECIMEN / Unknown Non-Blood / Unknown 04/07/2025 8:50 AM CDT 04/07/2025 8:50 AM CDT us Ashutosh Gonzales MD MICROBIOLOGY Final Result [facility] [address] [place] [address], * (ABNORMAL) URINE ALBUMIN TO CREATININE RATIO, RANDOM (04/07/2025 8:50 AM CDT) ALB RAND URINE 83.0 mg/L 04/07/2025 3:09 PM CDT [facility] CREATININE,URIN E 0.34 g/L 04/07/2025 3:09 PM CDT [facility] ALBUMIN TO CREATININE RATIO,RAND UR 244.1(H) <30.0 mg/g creat 04/07/2025 3:09 PM CDT [facility] Urine URINE SPECIMEN / Unknown Non-Blood / Unknown 04/07/2025 8:50 AM CDT 04/07/2025 8:51 AM CDT Narrative [facility] - 04/07/2025 3:09 PM CDT If Albumin to Creatinine Ratio is elevated, consider the following: Elevations seen with incipient nephropathy associated with diabetes mellitus or hypertension. Stress, exercise,hematuria, and urinary tract infection may also produce elevated results. If clinically indicated, confirm with 24 Hour Albumin to Creatinine Ratio. Prince Keyur BUKRS URINE Final Result [facility] [address] [place] [address], * (ABNORMAL) SODIUM (03/17/2025 3:17 PM CDT) SODIUM 134(L) 135 - 146 mmol/L [facility] Martinez Blood BLOOD SPECIMEN / Unknown 03/17/2025 3:17 PM CDT 03/17/2025 3:20 PM CDT us Ashutosh Gonzales MD CHEMISTRY Final Result [employer] [facility] [address] [place] [address], [place] [phone] [facility] [address] [place] [address] * HEMOGLOBIN A1C MONITORING (POCT) (03/17/2025 3:16 PM CDT) Pathologist [facility] POC HEMOGLOBIN A1C 5.9 <6.0 % OF TOTAL HGB [facility] Comment: Any point of care results exhibiting inconsistency with the patient's clinical status should be repeated using a different testing method. Blood BLOOD SPECIMEN / Unknown 03/17/2025 3:16 PM CDT 03/17/2025 3:17 PM CDT us Ashutosh Gonzales MD CHEMISTRY Final Result [facility] [address] [place] [address], [place] [phone] [facility] [address] [place] [address] * SCAN-MRI INTERPRETATION (03/14/2025 12:00 AM CDT) Anatomical Region Laterality Modality Other us Scanner OTHER Final Result * SCAN-RADIOLOGY REPORT (03/13/2025 12:00 AM CDT) Anatomical Region Laterality Modality Other us Scanner OTHER Final Result * SCAN-CT INTERPRETATION (03/13/2025 12:00 AM CDT) Anatomical Region Laterality Modality Other us Scanner OTHER Final Result * ANTI HCV (01/09/2025 2:12 PM PMO CONSULTANT) [facility] HEPATITIS C ANTIBODY NON-REACTI VE NON-REACT PRETTY [facility] Comment: HCV antibody was non-reactive. There is no laboratory evidence of HCV infection. In most cases, no further action is required. However, if recent HCV exposure is suspected, a test for HCV RNA (test code 14498) is suggested. For additional information please refer to http://education.EyeVerify.Litesprite/faq/SMD11l7 (This link is being provided for informational/ educational purposes only.) Blood BLOOD SPECIMEN / Unknown 01/09/2025 2:12 PM PMO CONSULTANT 01/09/2025 2:12 PM PMO CONSULTANT Artie Keyur BURKS SEND [employer]S Final Result [employer] [facility] [address] [place] [address], [facility] [address] [place] [address] * (ABNORMAL) XR DXA BONE DENSITY 2 SITES AXIAL (09/12/2024 2:37 PM PMO CONSULTANT) Anatomical Region Laterality Modality Spine, HIPS, HIPL, HIPR Other Impressions 09/13/2024 4:12 PM PMO CONSULTANT Osteopenia. RECOMMENDATIONS: The National Osteoporosis Foundation recommends [...] to assess therapeutic efficacy. Griselda Neri PA-C [facility] 09/13/2024 Narrative 09/13/2024 4:12 PM PMO CONSULTANT For Patients: Results are automatically released to your [facility] account once available, in compliance with federal regulations. This means that you may see your results before your provider has had a chance to review them. Please allow 2-3 business days for your provider to comment on the results. XR DXA Bone Mineral Density (BMD) EXAM LOCATION: [address] [address] PATIENT NAME: Frances Meek DATE OF : 1945 EXAM DATE: [...] two scanners are made by the same clay grinder. PROCEDURE: Dual-energy x-ray absorptiometry performed with routine [...] 13.3%. 10-year probability of hip fracture: 3.5%. us Ashutosh Gonzales MD DEXA Final Result from Last 3 Months or Most Recently Relevant to Health Maintenance Additional Health Concerns Infection Onset Date Last Indicated CLOSTRIDIUM DIFFICILE 05/26/2025 05/26/2025 Insurance MEDICARE PB ONLY MEDICARE PART B HB ONLY MEDICARE PART A HB ONLY [facility] Advance Directives Documents on File Type Date Recorded Patient Criminal Intelligence Specialist Expl anation Healthcare Directive 05/02/2013 12:00 AM A DVANCE DIRECTIVE * Full Code (Latest Code Status on File) Date Activated Date Inactivated Comments 12/03/2024 7:22 PM 12/10/2024 4:42 PM Question Answer Comments Code Status Discussion: Reviewed Preferences * Full Code Date Activated Date Inactivated Comments 03/06/2014 7:28 PM 03/09/2014 5:42 PM Care Teams Citrus Picker Relationship Specialty Start Date End Date Ashutosh Gonzales MD [address] [place] [address] PCP - General Family Practice 07/21/17 Qiana Huntley RN [address] [place] [address] Assistant Manager Retail 12/31/[address] [place] [phone] Assistant Manager Retail Senior Financial Analyst 12/31/[address] [address] 03/17/25 [facility] [place] [address] [address] 04/11/25
--- OUTSIDE RECORDS SUMMARY | 2025-06-03 13:22 | XMS_ITS | Clinical Summary ---
Author Organization [facility] Address [address] [place] [address] Care Team Providers Care Call Center Director Name Role Phone Elsewhere, Pcp Primary Care Provider Unavailabl e Source Comments Patient records contain information from all sites at [facility]. For routine questions regarding patient records, call [phone] during business hours, M-F 8:00 AM - 5:00 PM Central Time. 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[employer] Gender Identity Female 05/06/2021 10:16 AM CDT [...] Health Maintenance Due Date Last Done Comments Diabetic Eye Exam 1945 Hepatitis C Screening 1945 Office Visit for Blood Press ure Check / Re-check 1945 Hepatitis B Vaccines (1 of 3 - Risk 3-dose series) 2005 IPV Vaccines (2 of 3 - Adult catch-up series) 10/05/2010 09/07/2010 Diabetes Education 04/25/2018 04/25/2017, 12/23/2014 Diabetic Office Visit with F oot Exam 04/25/2018 04/25/2017, 12/23/2014 Urine Albumin 12/13/2018 12/13/2017 (Perf ormed elsewhere), 01/19/2017, 12/02/2015, Additional history exists COVID-19 Vaccine (8 - 2023-2 5 season) 2024 10/06/2023, 03/06/2023, 07/16/2022, Additional history exists Depression Screening (Annual PHQ-2) 11/06/2024 Fall Risk Screen (Annual) 11/06/2024 Hemoglobin A1C 11/07/2024 05/07/2024, 12/2022, 03/06/2023, Additional history exists Creatinine Level (Kidney Fun ction Test) 05/14/2025 05/14/2024, 05/07/2024, 09/07/2023, Additional history exists Potassium Level 05/14/2025 05/14/2024, 07/0 12/2023, 09/07/2023, Additional history exists Sodium Level 05/14/2025 05/14/2024, 07/0 12/2023, 09/07/2023, Additional history exists Influenza Vaccine (#1) 2025 , 08/03/2022, 07/24/2021, Additional history exists DTaP,Tdap,and Td Vaccines (4 [...] 15 MMOLL POWERCHART HXeGFR (MDRD) >60 >=60 [id number] POWERCHART eGFR Black/ >60 >=60 [id number] POWERCHART Glucose 92 70 - 139 MGDL POWERCHART Blood 06/28/2017 11:1 8 AM CDT us Christie Moffett Tamara MCNEAL., R.N. LAB BLOOD ADD- ON Edited Result - Final JEFFERY NA * BI Breast Screening Bilateral (03/31/2017 9:13 AM CDT) Anatomical Region Laterality Modality Breast Bilateral Mammography 03/31/2017 9:13 AM CDT Addenda Addendum by Amy Rodriguez M.D. on 03/31/2017 9:13 AM CDT RAD^^^OW [place] Mammo Screening w CADD 03/31/2017 09:13:26 Narrative 03/31/2017 11:24 AM CDT Exam: [place] Mammo Screening w/ CADD Indication: screening Comparison: [...] M.D. / ProviderAmy M.D. - 04/27/2017 Exam: [place] Mammo Screening w/ CADD Indication: screening Comparison: [...] - Benign. Emelia Chavez(R), RCristina(R)(M) IMG BI P ROCEDURES Edited Result - [...] Recently Relevant to Health Maintenance Insurance MEDICARE [facility] Care Teams Call Center Director Relationship Specialty Start Date End Date Elsewhere, Pcp PCP - General Family Medicine 01/30/19
[2025-06-03 13:28] VITALS: BP 144/62; PULSE 72; RESP 16; TEMP 36.4; O2SAT 95; BMI 32.6
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
--- NOTE | 2025-06-03 14:02 | CRLHL7_ITS ---
For Patients: As a result of the Century Cures Act, medical imaging exams and procedure reports are released immediately into your electronic medical record. You may view this report before your referring provider. If you have questions, please contact your health care provider. Indication: FALL. BACK PAIN Technique: Noncontrast axial CT of the lumbar spine with coronal and sagittal reformats are provided. Comparison: MRI 09/01/2017 Findings: There are 5 lumbar-type vertebral bodies. No aggressive osseous lesions. No acute fracture. No prevertebral or paraspinal edema. Nonunion of the right L1 transverse process. Prominent anterior osteophytes at multiple levels. Fusion of the T12-L1 vertebra across the anterior endplates. Bilateral renal cysts. T12-L1: Fusion of the right costovertebral junction. No significant spinal canal stenosis or neural foramen narrowing. L1-2: Left central disc osteophyte complex. No significant spinal canal stenosis or neural foraminal narrowing. L2-3: Vacuum disc phenomenon. Circumferential disc bulge. Endplate osteophytic ridging. Mild spinal canal narrowing. No significant neural foraminal narrowing. L3-4: Vacuum disc phenomenon. Diffuse disc bulge and endplate osteophytic ridging. Advanced left and moderate right facet joint arthrosis. Moderate spinal canal stenosis. Moderate left and no right neural foraminal narrowing. L4-5: Grade 1 anterolisthesis. Mild interspace narrowing. Diffuse disc bulge and endplate osteophytic ridging. Advanced facet arthrosis and facet joint hypertrophy. Moderate-severe spinal canal stenosis. Mild neural foramen narrowing bilaterally. L5-S1: Advanced right and mild left facet arthrosis. Prominent right lateral endplate osteophytes. Severe right neural foraminal narrowing. No left neural foraminal narrowing. Mild right subarticular recess stenosis. Impression: 1. No convincing radiographic evidence of acute osseous injury. 2. Moderate scattered degenerative changes of the lumbar spine. Moderate-severe spinal canal stenosis at L4-5, moderate spinal canal stenosis at L3-4 and mild spinal canal stenosis at L2-3 and L5-S1. Severe right neural foramen narrowing at L5-S1 and moderate left neural foraminal narrowing at L3-4. Please note that all CT scans at this facility use dose modulation, iterative reconstruction, and/or weight-based dosing when appropriate to reduce radiation dose to as low as reasonably achievable. Dictated by Naren Polk MD @ 06/03/2025 3:40:06 PM (Electronically Signed)
--- NOTE | 2025-06-03 14:02 | CRLHL7_ITS ---
For Patients: As a result of the Cures Act, medical imaging exams and procedure reports are released immediately into your electronic medical record. You may view this report before your referring provider. If you have questions, please contact your health care provider. Indication: Fall. Pelvic pain. Technique: Multiple axial CT images through the pelvis without contrast. Sagittal and coronal reformatted images submitted for review. Comparison: None. Findings: Bone demineralization. No acute pelvic fracture. [id number] degenerative changes of the bilateral hips and visualized lumbar spine. No suspicious lytic or sclerotic osseous lesion. No significant hip effusion. No discrete superficial soft tissue hematoma in the pelvis. Midline ventral hernia contains fat, large and small bowel. No inflammatory change associated with this finding. Distal colonic diverticulosis without evidence of acute diverticulitis. Bladder as imaged is unremarkable. No pathologic pelvic lymphadenopathy or free fluid. Impression: No acute pelvic fracture. Dictated by Russell Max MD @ 06/03/2025 4:10:03 PM Please note that all CT scans at this facility use dose modulation, iterative reconstruction, and/or weight-based dosing when appropriate to reduce radiation dose to as low as reasonably achievable. Dictated by: Russell Max MD @ 06/03/2025 16:10:34 (Electronically Signed)
--- NOTE | 2025-06-03 14:02 | CRLHL7_ITS ---
For Patients: As a result of the Century Cures Act, medical imaging exams and procedure reports are released immediately into your electronic medical record. You may view this report before your referring provider. If you have questions, please contact your health care provider. INDICATION: Fall. TECHNIQUE: CT of the head without contrast. Coronal and sagittal reformats. Bone and soft tissue algorithms. COMPARISON: CT 08/14/2022, MRI 03/14/2025 FINDINGS: Examination is limited by motion artifact. No acute intracranial hemorrhage or extra-axial collection. No evidence of acute cortical infarction. No mass effect or midline shift. Moderate generalized parenchymal volume loss. Moderate regions of decreased attenuation within the periventricular and subcortical white matter of both cerebral hemispheres most likely reflect chronic microvascular ischemic disease and age related change in this patient. Vascular calcifications within the carotid siphons. Orbital contents are normal. No calvarial fractures. No lytic or sclerotic osseous lesions within the calvarium or skull base. Scalp and other imaged soft tissue structures are normal. Mastoid air cells are clear. Air-fluid level in the left maxillary sinus. The mastoid air cells and middle ear cavities are clear. IMPRESSION: 1. No acute intracranial abnormality. 2. Moderate parenchymal volume loss and chronic small vessel ischemic changes, unchanged. 3. Small air-fluid level in the left maxillary sinus. Please note that all CT scans at this facility use dose modulation, iterative reconstruction, and/or weight-based dosing when appropriate to reduce radiation dose to as low as reasonably achievable. Dictated by Naren Polk MD @ 06/03/2025 3:33:09 PM (Electronically Signed)
[2025-06-03] MEDS: HYDROCODONE-ACETAMIN 5-325 MG 1 TAB 2 TAB PO (14:13)
== END 2025-06-03 17:02 | disposition home or self-care (01) ==
PROVIDERS: Emergency Provider Family Medicine; PCP Family Medicine
DX: S09.90XA Unspecified injury of head, initial encounter (principal); M25.551 Pain in right hip; W18.12XA Fall from or off toilet with subsequent striking against object, initial encounter; Z87.891 Personal history of nicotine dependence
CPT/HCPCS: 70450; 72131; 72192; 99284; 99285; A9270

== ENCOUNTER 2025-08-24 06:18 | Outpatient (CLI) | payer MEDICARE, BC, SELFPAY | END 2025-08-24 06:19 | disposition home or self-care (01) | LOC: AMB 08-28 01:00 | PROVIDERS: PCP Family Medicine; Visit Provider Family Medicine | DX: F91.9 Conduct disorder, unspecified (principal) | CPT/HCPCS: A0425; A0427 ==

== ENCOUNTER 2025-08-24 06:47 | Observation (INO) | payer MEDICARE, BC, SELFPAY ==
--- OUTSIDE RECORDS SUMMARY | 2014-03-07 19:00 | XMS_ITS | Continuity of Care Document ---
Author Organization [facility] Address [address] [address] [place] [address] Phone Care Team Providers Care Lacquer Spray Booth Operator Name Role Phone Tiffany PENN, Lya Jordan Unavailable Unavaila ble Procedures Procedure Date Ugi Endo; W/bx 1/mx Init Hosp-da E&m Mod Severity 4 Advance Directives Directive Yes / No Effective Date File Name No Information Encounters Encounter Description Practice Location Reason(s) For Visit Diagnoses Date Provider Providers Copied on Encounter [facility], [address] [address], [place], [place], [id number], [place] tel:[phone] [facility] No Information 4 Tiffany Jordan. [address] [place] [address], [address], [id number] , [place]. [phone] Referring Provider: [place], [address] [place] [address], [address] . tel:[phone] Init Hosp-da E&m Mod Severity [facility], [address] [address], [place], [place], [id number], [phone] [facility] No Information 4 Merry Robert. [facility], [address], [id number] , [place]. [phone] Referring Provider: [place], [address] [place] [address], [address] . tel:[phone] Family History Family Member Type Diagnosis Age At Onset No Information Payers Payer name Insurance type Covered alliance party ID Authoriza tiemi(s) Medicare NGS MB [id number] [facility] [id number] Social History Type Description Quantity Date Captured Comments Sex Female Smoking Status No Information Chief Complaint And Reason For Visit No Information Reason For Referral Reason For Referral No Information History Of Present Illness Encounter Date Complaint History Of Prese nt Illness No Information Functional Status Date Functional Assessmen t No Information Instructions Date Instruction Additional Infor mation No Information Assessments Type Assessment Date No Information Patient Care Teams Name Effective Dates (start - stop) Status Members No Information
--- OUTSIDE RECORDS SUMMARY | 2014-03-07 19:00 | XMS_ITS | Continuity of Care Document ---
Author Organization [facility] Address [address] [address] [place] [address] Phone Care Team Providers Care Towel Folder Name Role Phone Tiffany PENN, Lay Jordan Unavailable Unavaila ble Procedures Procedure Date Ugi Endo; W/bx 1/mx Init Hosp-da E&m Mod Severity 4 Advance Directives Directive Yes / No Effective Date File Name No Information Encounters Encounter Description Practice Location Reason(s) For Visit Diagnoses Date Provider Providers Copied on Encounter [facility], [address] [address], [place], [place], [id number], [place] tel:[phone] [facility] No Information 4 Tiffany Jordan. [address] [place] [address], [address], [id number] , [place]. [phone] Referring Provider: [place], [address] [place] [address], [address] . tel:[phone] Init Hosp-da E&m Mod Severity [facility], [address] [address], [place], [place], [id number], [phone] [facility] No Information 4 Merry Robert. [facility], [address], [id number] , [place]. [phone] Referring [place]: [place], [address] [place] [address], [address] . tel:[phone] Family History Family Member Type Diagnosis Age At Onset No Information Payers Payer name Insurance type Covered democrat ID Authoriza tiemi(s) Medicare NGS MB [id number] [facility] [id number] Social History Type Description Quantity Date Captured [...]
--- OUTSIDE RECORDS SUMMARY | 2025-08-24 06:49 | XMS_ITS | Clinical Summary ---
Author Organization [facility] Address [address] [place] [id number] Care Team Providers Care Building Admin Name Role Phone Ashutosh Gonzales MD Primary Care Provider Qiana Huntley RN Unavailable [phone] Unavailable [phone] [facility] Unavailable [phone] Allergies Active Allergy Reactions Criticality Noted Date Comments Amoxicillin Rash 04/13/2007 Cat Dander Other - Describe In Comment Field 02/05/2018 Losartan Other - Describe In Comment Field 07/28/2022 Increased Creatinine and potassium Metformin Diarrhea 08/12/2025 Medications CPAPIndications: Obstructive sleep apnea CPAP machine for home use at pressure 14 cmw, full face mask x1/3month with a full face cushion x1/mo 1 Each 11 024 Active Additional Information Patient not taking.Reported on 08/21/2025 ketoconazole 2 % creamIndications :Intertrigo Apply thinly to the affected areas of the groin folds ( yeast rash) twice daily for 2-3 weeks, then use as needed 60 g 11 025 Active cyanocobalamin 1,000 mcg/mL injectionIndicat ions:Vitamin B12 deficiency Inject 1 mL (1,000 mcg) intramuscular every 4 weeks. 4 mL 11 025 Active isosorbide dinitrate 10 mg tabletIndication s:Acute HFrEF (heart failure with reduced ejection fraction) (HC) Take 1 Tablet (10 mg) by mouth three times daily. 270 Tablet 1 025 Active vit-min eye [id number] 0mg (PreserVision AREDS) capsuleIndicatio ns:Nutritional deficiency TAKE 1 TABLET BY MOUTH TWICE DAILY 180 Capsule 3 025 Active loperamide 2 mg tabletIndication s:Chronic diarrhea Take 4mg by mouth with 1st loose stool, then 2mg with each subsequent loose stool. Max 16 mg in 24 hrs 48 Tablet 1 025 Active potassium chloride 20 mEq extended-release tablet (part/cryst)Danielle cations:Hypokale henrik 1 tablet p.o. twice daily for 4 days, then 1 daily. 100 Tablet 3 025 Active blood sugar diagnostic (OneTouch Verio test strips) stripIndications :Diabetes mellitus without complication (HC) As directed. Test one time daily. 100 Each 3 025 Active lancetsIndicatio ns:Diabetes mellitus without complication (HC) As directed. Test one time per day. 100 Each 3 025 Active Cetirizine (ZyrTEC) 10 mg capIndications:P ruritus 1 tablet p.o. daily. 90 Capsule 3 025 Active Additional Information Patient taking differently: DAILY PRN, 1 tablet p.o. daily., Reported on 08/21/2025 True Metrix Glucose Test Strip stripIndications :Diabetes mellitus type 2, noninsulin dependent (HC) E11.9 NIDDM type II - Test 1 time/day 100 Each 025 Active triamcinolone 0.1 % ointmentIndicati ons:Chronic eczema APPLY TOPICALLY TO AFFECTED AREA(S) TWICE DAILY NOT TO EXCEED 14 DAYS WITHOUT INTERRUPTION ON ANY ONE LOCATION 80 g 025 Active nystatin powder powderIndication s:Yeast dermatitis Apply 1 Strip topically to affected area(s) three times daily. As needed. 60 g 3 025 Active allopurinoL (ZYLOPRIM) 100 mg tabletIndication s:Hyperuricemia Take 2 Tablets (200 mg) by mouth once daily. 90 Tablet 1 025 Active propylene glycoL (Systane Balance) 0.6 % ophthalmic solutionIndicati ons:Dry eyes One drop both eyes three times daily as needed, dry eyes. 10 mL 11 025 Active miscellaneous medical supply miscIndications: Bilateral lower extremity edema Compression wraps with straps, 30 to 50 mmHg, knee to ankle. 1 Each 3 025 Active sertraline (ZOLOFT) 100 mg tabletIndication s:Major neurocognitive disorder, due to frontotemporal lobar degeneration, with behavioral disturbance, moderate (HC) Take 1 Tablet (100 mg) by mouth once daily in the morning. 90 Tablet 3 025 Active acetaminophen (TYLENOL EXTRA STRGTH) 500 mg tabletIndication s:Pain Take 2 Tablets (1,000 mg) by mouth two times daily. Max acetaminophen dose: 3000mg in 24 hrs. 200 Tablet 3 025 Active Additional Information Patient taking differently:1,000 mg Oral BID,Max acetaminophen dose: 3000mg in 24 hrs.duplicate, Reported on 08/21/2025 hydrALAZINE (APRESOLINE TABLET) 50 mg tabletIndication s:Acute HFrEF (heart failure with reduced ejection fraction) (HC) TAKE 1 TABLET BY MOUTH 3 TIMES DAILY 270 Tablet 025 Active empagliflozin (Jardiance) 10 mg tabletIndication s:Diabetes mellitus without complication (HC) TAKE 1 TABLET BY MOUTH DAILY 90 Tablet 025 Active cetirizine (ZYRTEC) 10 mg tablet Take 10 mg by mouth once daily if needed for Allergy Symptoms. 025 Active acetaminophen (TYLENOL EXTRA STRGTH) 500 mg tablet Take 500 mg by mouth every 8 hours if needed for Pain. Take 2 tablets by mouth every 8 hours as needed - do not exceed 4000 mg acetaminophen in 24 hours. 025 Active QUEtiapine (SEROQUEL) 25 mg tabletIndication s:Major neurocognitive disorder, due to frontotemporal lobar degeneration, with behavioral disturbance, moderate (HC),Anxiety Take 1 Tablet (25 mg) by mouth three times daily. May also take 1 tablet by mouth 2 times daily if needed for hallucinations, anxiety, irritability or sleep. Wait 1 hour between doses. 270 Tablet 2 Active bumetanide (BUMEX) 2 mg tabletIndication s:Stage 3a chronic kidney disease (HC) TAKE 1 TABLET BY MOUTH EVERY MORNING 28 Tablet 12 Active melatonin 10 mg tabletIndication s:Insomnia due to mental condition Take 1 Tablet (10 mg) by mouth once daily in the evening. [place] administration timing is 2-3 hours before bedtime. May administer between 6.30 and 8.30 PM. 90 Tablet 3 Active ferrous sulfate 325 mg delayed release tablet Take 325 mg by mouth once daily. refused to take 9:00 am dose 08/21 Active ferrous sulfate 325 mg (65 mg iron) tabletIndication s:Iron deficiency anemia, unspecified iron deficiency anemia type 1 tablet p.o. every other day before breakfast. 45 Tablet 3 025 2024 Discontinued(* Medication adjustment) metoprolol succinate (TOPROL XL) 50 mg sustained-releas e tabletIndication s:Chronic heart failure with preserved ejection fraction (HC) TAKE 1 TABLET BY MOUTH DAILY 90 Tablet 025 2024 Discontinued bumetanide (BUMEX) 2 mg tabletIndication s:Stage 3a chronic kidney disease (HC) Take 1 Tablet (2 mg) by mouth once daily in the morning. 90 Tablet 025 2024 Discontinued memantine (NAMENDA) 10 mg tablet Take 10 mg by mouth two times daily. 025 2024 Discontinued(* Allergic/Adver se Rxn/Side Effects) melatonin 5 mg tabletIndication s:Insomnia due to mental condition Take 1 Tablet (5 mg) by mouth once daily in the evening. [place] administration timing is 2-3 hours before bedtime. May administer the first dose between 6.30 and 8.30 PM. May repeat between 9.30 and 10 PM 90 Tablet 3 025 2024 Discontinued(* Medication adjustment) melatonin 10 mg tabletIndication s:Insomnia due to mental condition Take 1 Tablet (10 mg) by mouth once daily in the evening. [place] administration timing is 2-3 hours before bedtime. May administer the first dose between 6.30 and 8.30 PM. 30 Tablet 2 025 2024 Discontinued(* Medication adjustment) metoprolol succinate (TOPROL XL) 50 mg sustained-releas e tabletIndication s:Chronic heart failure with preserved ejection fraction (HC) TAKE 1 TABLET BY MOUTH DAILY 28 Tablet 12 025 2024 Discontinued(* Med complete/Regim en complete/Level of care change) Hospital, Clinic, or Other Facility Administered Medication Ordered Dose Route Frequency Start Date End Date Status cyanocobalamin (VITAMIN B12) 1,000 mcg/mL injection 1,000 mcgIndications:Vitam in B12 deficiency 1000 mcg IM Q 4 WEEKS (28 DAYS) 10/28/2024 09/28/2025 Active Active Problems Problem Noted Date Diagnosed Date Iron deficiency anemia 08/12/2025 Unintentional weight loss of more than 10% body weight within 6 months 07/28/2025 Encounter for hospice care discussion 07/18/2025 Overview (07/18/2025): Hospice Physician Narrative *PRELIMINARY* Primary hospice diagnosis: Major neurocognitive disorder with frontal lobe dysfunction Complicating medical conditions (comorbid/secondary): Anxiety/depression, CHF, mitral and tricuspid valve regurgitation, hypertension 3rd/unrelated category: Dxs: Gout, diabetes mellitus, obstructive sleep apnea, history of EtOH use, overactive bladder. Meds: ??. These diagnoses and medications do not affect pt's prognosis as they are stable and/or are easily managed and are unrelated to reasons/diagnoses/prognosis for which pt enrolled in hospice, or we have a formulary equivalent we can offer. Physician narrative: Jessica Meek is a(n) 79 years old female who is being referred to hospice due to global decline in the setting of neurocognitive disorder. She has been followed closely by Psychiatry. Thought is that her cognitive issues are likely a frontotemporal dementia versus a Lewy body dementia. There have been increasing challenging behaviors. Seroquel was recently increased. Home care has been closely involved and noticed decline and asked primary care physician if hospice referral would be appropriate. Complicating medical issue includes heart failure. Currently, pt is able to ambulate xx feet with xx before needing to stop and rest. Pt is sating xx% on xx. Pt is sleeping xx hours per day. Appetite is xx and pt has lost 20 pounds over 5 months, currently weighing 170#. Edema is xx. Verbalizations are xx. Skin is xx. Recent infections include xx. Jessica Meek currently requires assistance with xx. PPS XX% currently and was xx% three months ago. Prognosis is poor due to XX. Pt will be cared for at xx by xx. Pt scheduled for hospice consultation 07/27/2025. I was never paged, so perhaps info visit? Major neurocognitive disorde r, due to frontotemporal [...] Recent encounter dx: 03/13/25: Discharged Inpatient - [facility] (from [facility]) 03/05/25: Appointment - [facility] Recent notes: 03/16/25: Discharge Summary Note - Note by Margarita Gauthier (from [facility]) ... [+] Her angiogram was neg for [...] - Note by Pinky Salinas MD (from [facility]) ... [+] Underwent bilateral heart cath on 12/09 demonstrating patent epicardial coronaryarteries, mild to moderate pulmonary hypertension. 03/13/25: H&P - [place], PINKY SALINAS MD, 03/13/2025 by ASHUTOSH GONZALES [...] fract ion) 01/13/2025 Overview (03/25/2025): -Admitted to [place] for acute HFrEF in November 2024 x 8 days Echocardiogram EF 39%, hypokinetic inferior wall, severe MR/TR, moderately reduced systolic RV function. Of note, she also had skin graft done 12/03 for her diabetic foot ulcer. In emergency department hemoglobin 11.7, creatinine 1.3, troponin I 0.02, proBNP 22664. CXR with mild pulmonary edema. Underwent bilateral [...] cancer 12/23/2024 Overview (12/23/2024): - 2013, Right rastafari, BCC, MOHS Diabetes mellitus type 2, noninsulin [...] encounter dx: 01/09/25: Support OP Encounter - [facility] 01/09/25: Appointment - [facility] 01/07/25: Support OP Encounter - [facility] 01/05/25: Support OP Encounter - [facility] 12/25/24: HOV - [facility], [facility] Recent notes: 12/17/24: Progress Notes - [...] predniSONE Recent encounter dx: 03/07/23: Appointment - [facility] Recent notes: 02/17/25: Progress Notes by Ashutosh [...] Encounters Date Type Department Care Team Description 08/21/2025 10:30 AM CDT Office Visit [facility] [place] [address] [facility] [address] [place] [address] Elaina Sam MD Follow Up (3 MONTH FOLLOW UP/LABS PRIOR /PT states feeling good, doesn't have chest pain anymore.She still experiences dizziness. She is not moving around a lot. With minimal exertion, she gets SOB. ) 08/21/2025 Telephone [facility] [address] [place] [address] Ashutosh Gonzales MD Refill Request (Metoprolol) 08/21/2025 Travel 08/18/2025 11:48 AM CDT - 08/18/2025 11:59 PM CDT Hospital Encounter [facility] [address] [place] [address] Iron deficiency anemia, unspecified iron deficiency anemia type (Primary Dx) 08/18/2025 Travel 08/15/2025 1:00 PM CDT Office Visit [facility] [address] [facility] [place] [address] Marquis Valentine MD Follow Up; Medication Management 08/15/2025 Telephone [facility] [address] [facility] [place] [address] Ashutosh Gonzales MD Weight (WT loss ) 08/15/2025 Travel 08/12/2025 11:00 AM CDT Office Visit [facility] [address] [place] [address] Prince Baer MBBS Follow Up 08/12/2025 Telephone [facility] [address] [place] [address] Oncology, [facility] Appointment 08/12/2025 Travel 08/08/2025 10:30 AM CDT Orders Only [facility] [address] [place] [address] [place] <No scans attached> 08/08/2025 Travel 07/31/2025 Orders Only [facility] [address] [place] [address] Prince Baer MBBS <No scans attached> 07/29/2025 Refill [facility] [address] [place] [address] Ashutosh Gonzales MD Refill Request (Bumetanide, Metoprolol Succinate) 07/28/2025 1:00 PM CDT Office [facility] [place] [address] Marquis Valentine MD Follow Up; Medication Management (best ever) 07/28/2025 Travel 07/25/2025 9:45 AM CDT Home Care Visit [facility] [address] [place] [address] Naren Byrne, PT PT - OASIS DISCHARGE 07/25/2025 Travel 07/23/2025 12:00 PM CDT Home Care Visit [facility] [address] [place] [phone] Shahnaz Calvillo, RITO SN - DISCIPLINE DISCHARGE 07/21/2025 Telephone [facility] [address] [place] [address] Ashutosh Gonzales MD Questions (Diabetes check ) 07/18/2025 12:30 PM CDT Home Care Visit [facility] [address] [place] [phone] Gerald Mcmanus RN HOSPICE INFORMATIONAL VISIT 07/16/2025 10:45 AM CDT Home Care Visit [facility] [address] [place] [phone] Shahnaz Calvillo, RITO SN - LONG VISIT (>90 MINUTES) 07/16/2025 9:00 AM CDT Home Care Visit [facility] [address] [place] [phone] Margaret Hobbs, BEAUTY CULTURIST APPRENTICE PT - HOME VISIT 07/16/2025 Home Care Visit [facility] [address] [place] [phone] Shahnaz Calvillo, RITO CARE COORDINATION 07/16/2025 Telephone [facility] [address] [place] [address] Ashutosh Gonzales MD 07/16/2025 Telephone [facility] [place] [address] Shahnaz Calvillo, conservation engineer (Hospice Admission) 07/15/2025 12:15 PM CDT Home Care Visit [facility] [address] [place] [phone] Ric Ford, COMPUTER TRAINER COMPUTER TRAINER - DISCIPLINE DISCHARGE 07/15/2025 Home Care Visit [facility] [address] [place] [phone] Ric Ford, COMPUTER TRAINER CARE COORDINATION 07/14/2025 11:00 AM CDT Office Visit [facility] [address] [place] [address] Marquis Valentine MD Follow Up; Medication Management 07/14/2025 Travel 07/14/2025 Telephone [facility] [address] [place] [address] Sandro Smyth, AuD Audiology 07/11/2025 1:00 PM CDT Home Care Visit [facility] [address] [place] [address] Naren Byrne, PT PT - HOME VISIT 07/11/2025 Home Care Visit [facility] [address] [place] [phone] Yareli Jaime, POLITICAL GEOGRAPHER CARE COORDINATION 07/11/2025 Home Care Visit [facility] [address] [place] [address], [place] [phone] Naren Byrne, PT CARE COORDINATION 07/08/2025 2:30 PM CDT Home Care Visit [facility] [address] [place] [address], [place] [phone] Naren Byrne, PT PT - HOME VISIT 07/08/2025 12:30 PM CDT Home Care Visit [facility] [address] [place] [phone] Ric Ford, COMPUTER TRAINER COMPUTER TRAINER - HOME VISIT 07/08/2025 11:30 AM CDT Home Care Visit [facility] [address] [place] [address], [place] [phone] Shahnaz Calvillo RN SN - HOME VISIT 07/08/2025 Home Care Visit [facility] [address] [place] [address], [place] [phone] Ric Ford, COMPUTER TRAINER CARE COORDINATION 07/04/2025 11:00 AM CDT Home Care Visit [facility] [address] [place] [address], [place] [phone] Yareli Jaime LPN POLITICAL GEOGRAPHER - HOME VISIT 07/04/2025 10:15 AM CDT Home Care Visit [facility] [address] [place] [address] Naren Byrne, PT PT - HOME VISIT 07/04/2025 Travel 07/02/2025 9:00 AM CDT Home Care Visit [facility] [address] [place] [address], [place] [phone] Ric Ford, COMPUTER TRAINER COMPUTER TRAINER - INITIAL ASSESSMENT 07/02/2025 Home Care Visit [place] [address] [place] [address], [place] [phone] Ric Ford, COMPUTER TRAINER CARE COORDINATION 07/01/2025 2:15 PM CDT Home Care Visit [place] [address] [place] [address], [place] [phone] Naren Byrne, PT PT - HOME VISIT 07/01/2025 12:30 PM CDT Home Care Visit [facility] [address] [place] [address], [place] [phone] Yareli Jaime LPN POLITICAL GEOGRAPHER - HOME VISIT 07/01/2025 10:00 AM CDT Office Visit [facility] [address] [place] [address] Marquis Valentine MD Follow Up; Medication Management (i've been better, stiff neck, loose stools) 07/01/2025 Telephone [facility] [address] [place] [address] Ashutosh Gonzales MD order 07/01/2025 Travel 06/27/2025 11:30 AM CDT Home Care Visit [place] [address] [place] [address], [place] [phone] Shahnaz Calvillo RN SN - INITIAL ASSESSMENT 06/27/2025 9:00 AM CDT Home Care Visit [place] [address] [place] [address], [place] [phone] aNren Byrne, PT PT - HOME VISIT 06/27/2025 E-Consult [facility] [address] [place] [phone] Sebastian Cornell MD 06/27/2025 Home Care Visit [facility] [address] [place] [phone] Naren Byrne, PT CARE COORDINATION 06/27/2025 Telephone [facility] [address] [place] [address] Marquis Valentine MD information for patient 06/25/2025 9:30 AM CDT Home Care Visit [facility] [address] [place] [phone] Naren Byrne, PT PT - OASIS START OF CARE 06/25/2025 Plan of Care Documentation [address] [address] 06/25/2025 Travel 06/23/[address] [address] Ashutosh Gonzales MD Questions (Outside Orders ) 06/20/[address] [address] Sandro Smyth, AuD 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) 06/20/2025 Telephone [facility] [address] [place] [address] Ashutosh Gonzales MD Orders 06/19/[address] [address] Sandro Smyth, AuD Hearing Aid 06/19/2025 Telephone [facility] [address] [place] [address] Sandro Smyth, AuD Hearing Aid 06/18/2025 4:00 PM CDT Orders Only [address] [address] Lab, [place] Lab 06/18/2025 3:30 PM CDT Office Visit [facility] [address] [place] [address] Sandro Smyth, AuD Hearing Aid 06/18/2025 3:00 PM CDT Office Visit [facility] [address] [place] [address] Sabino Conway MD Sleep Follow-up 06/18/2025 Travel 06/18/2025 Telephone [facility] [address] [place] [address] Ashutosh Gonzales MD Lab (Orders for lab drawn for any disease. ) 06/11/2025 Transcribe Orders [facility] [address] [phone] Mp Reyes MD 06/05/2025 Telephone [facility] [address] [place] [address] Ashutosh Gonzales MD Follow Up (C.Diff) 06/05/2025 Telephone [facility] [address] [place] [address] Ashutosh Gonzales MD Questions 06/04/2025 Telephone [facility] [address] [place] [address] Ashutosh Gonzales MD Outside Order (Physical Therapy) 06/04/2025 Refill [facility] [address] [place] [address] Ashutosh Gonzales MD Refill Request (Hydralazine, Jardiance) 06/03/2025 Orders Only [facility] Scanner 1 scan: (1-Ord) [place], PELVIS WO CON, 06/03/2025 06/03/2025 Orders Only [facility] Scanner 1 scan: (1-Ord) [place] ED, CT HEAD/BRAIN WO CONTRAST, 06/03/2025 05/28/2025 11:30 AM CDT Home Care Visit [facility] [address] [place] [address] Shahnaz Calvillo RN SN - OASIS DISCHARGE 05/28/2025 Telephone [facility] [address] [place] [address] Ashutosh Gonzales MD Results 05/27/2025 12:30 PM CDT Office Visit [facility] [address] [place] [address] Marquis Valentine MD Follow Up; Medication Management (bad-pain) 05/26/2025 8:15 AM CDT Orders Only [facility] [address] [place] [address] [place] <No scans attached> 05/26/2025 Telephone [facility] [address] [place] [address] Marquis Valentine MD Follow Up (FYI) 05/26/2025 Travel from Last 3 Months Immunizations Immunization Administration Dates Next Due AMB Influenza, IIV3 (Age >=3 years)(Flu Clinic Only) 08/25/2010 COVID-19 vaccine (Pfizer-Bio NTech 30mcg/0.3mL) 12YO+ RONNY-SUCROSE PF, MDV 02/18/2022 [...] Brother Alive Daughter Alive Father (Age 50) PR Mother Alive Other Social History Tobacco Use Types Packs/Day Years Used Date Smoking Tobacco: Former Cigarettes 0.3 5 0 11/06/1996 - 11/06/2001 Smokeless Tobacco: Never Tobacco Cessation:Counseling Given: No Alcohol Use Standard Drinks/Week Comments Not Currently 0 (1 standard drink = 0.6 oz pur e alcohol) PHQ-2 Answer Date Recorded PHQ-2 TOTAL SCORE 4 08/15/2025 Social Connections Answer Date Recorded Do you often feel lonely or isolated from those around you? 0 12/04/2024 Alcohol Use Answer Date Recorded How often do you have a drink containing alcohol ? 0 08/21/2025 Average Number of Drinks Not on file 025 Frequency of Binge Drinking Not on file 08/06 Financial Resource Strain Answer Date R ecorded [...] on file Legal Sex Female 5:26 AM PUPPET MAKER Gender Identity Not on file Sexual Orientation [...] Sign Reading Time Taken Comments Blood Pressure 90/48 08/22/2025 11:00 AM CDT Pulse 66 08/22/2025 11:00 AM CDT Temperature 36.8 C (98.3 F) 08/22/2025 11:00 AM CDT Respiratory Rate 16 08/22/2025 11:00 AM CDT Oxygen Saturation 95% 08/22/2025 11:00 AM CDT Inhaled Oxygen Concentration - - Weight 71 kg (156 lb 9.6 oz) 08/21/2025 10:24 AM CDT Height 157.5 cm (5' 2) 08/21/2025 10:24 AM CDT Body Mass Index 28.64 08/21/2025 10:24 AM CDT Plan of Treatment Upcoming Encounters Date Type Department Care Team (Late st Contact Info) Description 09/03/2025 11:00 AM CDT [facility]ment [facility] [address] [facility] [place] [address] 09/08/2025 1:00 PM PUPPET MAKER Office Visit [facility] [address] [facility] [place] [address] Marquis Valentine MD [address] [facility] [place] [address] 09/08/2025 2:15 PM PUPPET MAKER Nurse/Clinic Staff Only [facility] [address] [facility] [address] 09/22/2025 1:00 PM PUPPET MAKER Office Visit [facility] [address] [place] [address] Marquis Valentine MD [address] [place] [address] 10/06/2025 2:15 PM PUPPET MAKER Nurse/Clinic Staff Only [facility] [address] [place] [address] 11/03/2025 2:15 PM PUPPET MAKER Nurse/Clinic Staff Only [facility] [address] [facility] [place] [place] [address] 01/19/2026 11:30 AM CDT Office Visit [facility] [address] [place] [address] Deidre Lin, PhD, [address] [place] [address] 02/19/2026 1:15 PM CDT Orders Only [facility] [address] [facility] [place] [address] [place] 02/26/2026 1:30 PM CDT Office Visit [facility] [address] [place] [address] Prince Baer MBBS [address] [facility] [address] [place] [address] Health Maintenance Due Date Last Done Comments RSV vaccine for adults or Completed 07/21/2023 Hepatitis B series for 19+ Aged Out N o longer eligible based on patient's age to complete this topic Procedures Procedure Name Priority Date/Time Associated Diagnosis Comments CBC WITH AUTO DIFFERENTIAL Routine 08/08/2025 10:34 AM CDT Stage 3a chronic kidney disease (HC) PROTEIN/CREAT RATIO,URINE Routine 08/08/2025 10:34 AM CDT Stage 3a chronic kidney disease (HC) VITAMIN D 25 (DEFICIENCY) Routine 08/08/2025 10:34 AM CDT Stage 3a chronic kidney disease (HC) URINE ALBUMIN TO CREATININE RATIO, RANDOM Routine 08/08/2025 10:34 AM CDT Stage 3a chronic kidney disease (HC) UA W/ SEDIMENT EXAM REFLEXED PER CRITERIA Routine 08/08/2025 10:34 AM CDT Stage 3a chronic kidney disease (HC) RENAL FUNCTION PANEL Routine 08/08/2025 10:34 AM CDT Stage 3a chronic kidney disease (HC) IRON PLUS IRON BINDING CAP Routine 08/08/2025 10:34 AM CDT Stage 3a chronic kidney disease (HC) FERRITIN Routine 08/08/2025 10:34 AM CDT Stage 3a chronic kidney disease (HC) CBC WITH AUTO DIFFERENTIAL Routine 08/08/2025 10:34 AM CDT Stage 3a chronic kidney disease (HC) IRON PLUS IRON BINDING CAP Routine 06/18/2025 4:00 PM CDT Iron deficiency anemia, unspecified iron deficiency anemia type HEMOGLOBIN Routine 06/18/2025 4:00 PM CDT Iron deficiency anemia, unspecified iron deficiency anemia type SCAN-CT INTERPRETATION 5 12:00 AM CDT SCAN-CT INTERPRETATION 5 12:00 AM CDT CLOSTRIDIUM DIFFICILE TOXIN B QL STOOL PCR([facility])REFLEX [...] without long-term current use of insulin (HC) from Last 3 Months Results * (ABNORMAL) CBC WITH AUTO DIFFERENTIAL (08/08/2025 10:34 AM CDT) WHITE BLOOD CELL COUNT 5.6 3.8 - 10.8 Thousand/u L 08/09/2025 3:26 AM CDT [facility] RED BLOOD CELL COUNT 4.21 3.80 - 5.10 Million/uL 08/09/2025 3:26 AM CDT [facility] HEMOGLOBIN 12.1 11.7 - 15.5 g/dL 08/09/2025 3:26 AM CDT [facility] HEMATOCRIT 37.8 35.0 - 45.0 % 08/09/2025 3:26 AM CDT [facility] MCV 89.8 80.0 - 100.0 fL 08/09/2025 3:26 AM CDT [facility] MCH 28.7 27.0 - 33.0 pg 08/09/2025 3:26 AM CDT [facility] MCHC 32.0 32.0 - 36.0 g/dL 08/09/2025 3:26 AM CDT [facility] Comment: For adults, a slight decrease in the calculated MCHC value (in the range of 30 to 32 g/dL) is most likely not clinically significant; however, it should be interpreted with caution in correlation with other red cell parameters and the patient's clinical condition. RDW 15.0 11.0 - 15.0 % 08/09/2025 3:26 AM CDT [facility] PLATELET COUNT 185 140 - 400 Thousand/u L 08/09/2025 3:26 AM CDT [facility] MPV 10.1 7.5 - 12.5 fL 08/09/2025 3:26 AM CDT [facility] NEUTROPHILS 75.1 % 08/09/2025 3:26 AM CDT [facility] LYMPHOCYTES 8.1 % 08/09/2025 3:26 AM CDT [facility] MONOCYTES 13.5 % 08/09/2025 3:26 AM CDT [facility] EOSINOPHILS 2.9 % 08/09/2025 3:26 AM CDT [facility] BASOPHILS 0.4 % 08/09/2025 3:26 AM CDT [facility] ABSOLUTE NEUTROPHILS 4206 1500 - 7800 cells/uL 08/09/2025 3:26 AM CDT [facility] ABSOLUTE LYMPHOCYTES 454(L) 850 - 3900 cells/uL 08/09/2025 3:26 AM CDT [facility] ABSOLUTE MONOCYTES 756 200 - 950 cells/uL 08/09/2025 3:26 AM CDT [facility] ABSOLUTE EOSINOPHILS 162 15 - 500 cells/uL 08/09/2025 3:26 AM CDT [facility] ABSOLUTE BASOPHILS 22 0 - 200 cells/uL 08/09/2025 3:26 AM CDT [facility] Blood BLOOD SPECIMEN / Unknown [facility] / Unknown 08/08/2025 10:34 AM CDT 08/08/2025 10:34 AM CDT us Prince Baer [facility] HEMATOLOGY Final Result [facility] [address] [address], * (ABNORMAL) VITAMIN D 25 (DEFICIENCY) (08/08/2025 10:34 AM CDT) VITAMIN D,25-OH,TOTAL,IA 22(L) 30 - 100 ng/mL 08/09/2025 4:58 AM CDT [facility] Comment: Vitamin D Status 25-OH Vitamin D: Deficiency: <20 ng/mL Insufficiency: 20 - 29 ng/mL Optimal: > or = 30 ng/mL For 25-OH Vitamin D testing on patients on D2-supplementation and patients for whom quantitation of D2 and D3 fractions is required, the QuestAssureD(TM) 25-OH VIT D, (D2,D3), LC/MS/MS is recommended: order code 96222 (patients >2yrs). See Note 1 Note 1 For additional information, please refer to http://education.[facility] [employer].[place]ino/faq/BMH559 (This link is being provided for informational/ educational purposes only.) Blood BLOOD SPECIMEN / Unknown [facility] / Unknown 08/08/2025 10:34 AM CDT 08/08/2025 10:34 AM CDT Prince Baer [facility] SEND OUTS Final Result Performing Organization Address City/[facility]/ZIP Co de Phone Number [facility] [address] [address], * (ABNORMAL) PROTEIN/CREAT RATIO,URINE (08/08/2025 10:34 AM CDT) [facility] PROTEIN QUANT,RAND URINE 8 1 - 14 mg/dL 08/08/2025 11:04 PM CDT [facility] CREAT,RANDOM URINE 42.8 28.0 - 217.0 mg/dL 08/08/2025 11:04 PM CDT [facility] PROT/CREAT RATIO,UR 0.2(H) <0.2 08/08/2025 11:04 PM CDT [facility] Urine URINE SPECIMEN / Unknown Non-Blood / Unknown 08/08/2025 10:34 AM CDT 08/08/2025 10:34 AM CDT Prince Baer [facility] URINE Final Result Performing Organization Address City/[facility]/ZIP Co de Phone Number [facility] [address] [place] [phone], * IRON PLUS IRON BINDING CAP (08/08/2025 10:34 AM CDT) Only the most recent of2 resultswithin the time period is included. [facility] IRON, TOTAL 58 45 - 160 mcg/dL 08/09/2025 4:01 AM CDT [facility] IRON BINDING CAPACITY 301 250 - 450 mcg/dL (calc) 08/09/2025 4:01 AM CDT [facility] % SATURATION 19 16 - 45 % (calc) 08/09/2025 4:01 AM CDT [facility] Blood BLOOD SPECIMEN / Unknown [facility] / Unknown 08/08/2025 10:34 AM CDT 08/08/2025 10:34 AM CDT us Prince Keyur [facility] Final Result Performing Organization Address City/[facility]/ZIP Co de Phone Number [facility] [address] [address], [place] [phone] * (ABNORMAL) URINE ALBUMIN TO CREATININE RATIO, RANDOM (08/08/2025 10:34 AM CDT) ALB RAND URINE 20.6 mg/L 08/08/2025 11:36 PM CDT [facility] CREATININE,URIN E 0.43 g/L 08/08/2025 11:36 PM CDT [facility] ALBUMIN TO CREATININE RATIO,RAND UR 47.9(H) <30.0 mg/g creat 08/08/2025 11:36 PM CDT [facility] Urine URINE SPECIMEN / Unknown Non-Blood / Unknown 08/08/2025 10:34 AM CDT 08/08/2025 10:34 AM CDT Narrative [facility] - 08/08/2025 11:36 PM CDT If Albumin to Creatinine Ratio is elevated, consider the following: Elevations seen with incipient nephropathy associated with diabetes mellitus or hypertension. Stress, exercise,hematuria, and urinary tract infection may also produce elevated results. If clinically indicated, confirm with 24 Hour Albumin to Creatinine Ratio. us Prince Keyur [facility] URINE Final Result Performing Organization Address City/[facility]/ZIP Co de Phone Number [facility] [address] [place] [address], [place] * (ABNORMAL) UA W/ SEDIMENT EXAM REFLEXED PER CRITERIA (08/08/2025 10:34 AM CDT) COLOR Yellow Yellow Color 08/08/2025 10:23 PM CDT [facility] CLARITY Clear Clear Clarity 08/08/2025 10:23 PM CDT [facility] SPECIFIC GRAVITY,URINE 1.010 1.010, 1.015, 1.020, 1.025 08/08/2025 10:23 PM CDT [facility] PH,URINE 6.0 6.0, 7.0, 8.0, 5.5, 6.5, 7.5, 8.5 08/08/2025 10:23 PM CDT [facility] UROBILINOGEN, QUALITATIVE Normal Normal EU/dl 08/08/2025 10:23 PM CDT [facility] PROTEIN, URINE Negative Negative mg/dL 08/08/2025 10:23 PM CDT [facility] GLUCOSE, URINE 500(A) Negative mg/dL 08/08/2025 10:23 PM CDT [facility] KETONES,URINE Negative Negative mg/dL 08/08/2025 10:23 PM CDT [facility] BILIRUBIN,URI NE Negative Negative 08/08/2025 10:23 PM CDT [facility] OCCULT BLOOD,URINE Negative Negative 08/08/2025 10:23 PM CDT [facility] NITRITE Negative Negative 08/08/2025 10:23 PM CDT [facility] LEUKOCYTE ESTERASE Negative Negative 08/08/2025 10:23 PM CDT [facility] Urine URINE SPECIMEN / Unknown Non-Blood / Unknown 08/08/2025 10:34 AM CDT 08/08/2025 10:34 AM CDT us Prince Keyur [facility] URINE Final Result [facility] [address] [place] [address], * FERRITIN (08/08/2025 10:34 AM CDT) FERRITIN 89 16 - 288 ng/mL 08/09/2025 4:58 AM CDT [facility] Blood BLOOD SPECIMEN / Unknown [facility] / Unknown 08/08/2025 10:34 AM CDT 08/08/2025 10:34 AM CDT Prince Keyur [facility] CHEMISTRY Final Result [facility] [address] [place] [address], * (ABNORMAL) RENAL FUNCTION PANEL (08/08/2025 10:34 AM CDT) SODIUM 137 135 - 146 mmol/L 08/09/2025 4:01 AM CDT [facility] POTASSIUM 4.1 3.5 - 5.3 mmol/L 08/09/2025 4:01 AM CDT [facility] CHLORIDE 99 98 - 110 mmol/L 08/09/2025 4:01 AM CDT [facility] CARBON DIOXIDE 29 20 - 32 mmol/L 08/09/2025 4:01 AM CDT [facility] GLUCOSE 152(H) 65 - 99 mg/dL 08/09/2025 4:01 AM CDT [facility] Comment: Fasting reference interval For someone without known diabetes, a glucose value >125 mg/dL indicates that they may have diabetes and this should be confirmed with a follow-up test. CALCIUM 8.7 8.6 - 10.4 mg/dL 08/09/2025 4:01 AM CDT [facility] UREA NITROGEN (BUN) 28(H) 7 - 25 mg/dL 08/09/2025 4:01 AM CDT [facility] CREATININE 1.44(H) 0.60 - 1.00 mg/dL 08/09/2025 4:01 AM CDT [facility] BUN/CREATININE RATIO 19 6 - 22 (calc) 08/09/2025 4:01 AM CDT [facility] EGFR 37(L) > OR = 60 mL/min/1.7 3m2 08/09/2025 4:01 AM CDT [facility] PHOSPHATE ( PHOSPHORUS) 3.8 2.1 - 4.3 mg/dL 08/09/2025 4:01 AM CDT [facility] ALBUMIN 3.6 3.6 - 5.1 g/dL 08/09/2025 4:01 AM CDT [facility] Blood BLOOD SPECIMEN / Unknown [facility] / Unknown 08/08/2025 10:34 AM CDT 08/08/2025 10:34 AM CDT Prince Keyur [facility] CHEMISTRY Final Result Performing Organization Address City/[facility]/ZIP Co de Phone Number [facility] [address] [place] [address], * HEMOGLOBIN (06/18/2025 4:00 PM CDT) HEMOGLOBIN 11.9 11.7 - 15.5 g/dL [facility]ostics[facility] walls Juan Blood BLOOD SPECIMEN / Unknown 06/18/2025 4:00 PM CDT 06/18/2025 4:00 PM CDT Ashutosh Gonzales MD HEMATOLOGY Final Result Performing Organization Address [facility] Co de Phone Number [facility] [address] [place] [address], [employer] [address] * SCAN-CT INTERPRETATION (06/03/2025 12:00 AM CDT) Only the most recent of2 resultswithin the time period is included. Anatomical Region Laterality Modality Other Scanner OTHER Final Result * CRYPTOSPORIDIUM GIARDIA RAPID ANTIGEN (05/26/2025 11:46 AM CDT) GIARDIA AND CRYPTOSPORIDIUM ANTIGEN PANEL SEE NOTE [facility] Markus Martinez Comment: CRYPTOSPORIDIUM ANTIGEN, EIA Micro Number: [id number] Test Status: Final Specimen Source: Stool Specimen Quality: Adequate Cryptosporidium: Not Detected Reference Range: Not Detected NOTE: Due to intermittent shedding, one negative sample does not necessarily rule out the presence of a parasitic infection. GIARDIA AND CRYPTOSPORIDIUM ANTIGEN PANEL SEE NOTE [facility] KitchenClaudio Martinez Comment: GIARDIA AG, EIA, STOOL Micro Number: [id number] Test Status: Final Specimen Source: Stool Specimen Quality: Adequate Giardia Result 1: Not Detected Reference Range: Not Detected NOTE: Due to intermittent shedding, one negative sample does not necessarily rule out the presence of a parasitic infection. Stool STOOL SPECIMEN / Unknown 05/26/2025 11:46 AM CDT 05/26/2025 11:47 AM CDT Ashutosh Gonzales MD MICROBIOLOGY Final Result Performing Organization Address [facility] de Phone Number [facility] [address] [place] [address], [facility] [address] [place] [address] * (ABNORMAL) CLOSTRIDIUM DIFFICILE TOXIN B QL STOOL PCR([facility])REFLEX REALTIME (05/26/2025 11:46 AM CDT) [facility] CLOSTRIDIUM DIFFICILE TOXINB,QL REAL TIME PCR DETECTED( A) NOT DETECTED [facility] Comment: The stool sample is POSITIVE for [...] been established. This assay was performed by [employer] GeneXpert(R) PCR. The performance characteristics of this assay have been determined by [facility] [employer]. Performance characteristics refer to the analytical performance of the test. For additional information, please refer to http://education.[facility].[place]/faq/QLZ248 (This link is being provided for informational/educational purposes only.) 05/26/2025 11:4 6 AM CDT 05/26/2025 11:47 AM CDT us Ashutosh Gonzales MD LABORATORY Final Result Performing Organization Address [facility]/ZIP Co de Phone Number [facility] [address] [place] [address], [facility] [address] [facility] [place] [address] * (ABNORMAL) CLOSTRIDIOIDES DIFFICILE TOXIN PCR (05/26/2025 11:46 AM CDT) [facility] CLOSTRIDIUM DIFFICILE TOXIN/GDH W/REFL TO PCR SEE NOTE(A) [facility] Comment: CLOSTRIDIUM DIFFICILE TOXIN/GDH W/REFL TO PCR Micro Number: [id number] Test Status: Final Specimen Source: Stool Specimen Quality: Adequate GDH Antigen: Detected Toxin A and B: Not Detected COMMENT: Indeterminate. Specimen forwarded for toxigenic C. difficile PCR testing. For additional information, please refer to http://education.UGE/faq/AHT992 (This link is being provided for informational/educational purposes only.) Stool STOOL SPECIMEN / Unknown 05/26/2025 11:46 AM CDT 05/26/2025 11:47 AM CDT Ashutosh Gonzales MD MICROBIOLOGY Final Result [facility] [address] [place] [address], [facility] [address] [place] [address] * STOOL PATHOGEN MULTIPLEX PCR PANEL (05/26/2025 11:43 AM CDT) [facility] Campylobacter NOT Detected NOT Detected 05/26/2025 9:47 PM CDT [facility] Salmonella NOT Detected NOT Detected 05/26/2025 9:47 PM CDT [facility] Shigella NOT Detected NOT Detected 05/26/2025 9:47 PM CDT [facility] Vibrio NOT Detected NOT Detected 05/26/2025 9:47 PM CDT [facility] Yersinia Enterocolitica NOT Detected NOT Detected 05/26/2025 9:47 PM CDT [facility] Shiga Toxin 1 NOT Detected NOT Detected 05/26/2025 9:47 PM CDT [facility] Shiga Toxin 2 NOT Detected NOT Detected 05/26/2025 9:47 PM CDT [facility] Norovirus NOT Detected NOT Detected 05/26/2025 9:47 PM CDT [facility] Rotavirus NOT Detected NOT Detected 05/26/2025 9:47 PM CDT [facility] Stool STOOL SPECIMEN / Unknown Non-Blood / Unknown 05/26/2025 11:43 AM CDT 05/26/2025 11:43 AM CDT Narrative [facility] - 05/26/2025 9:47 PM CDT This test is a Culture Independent Diagnostic Test (CIDT) therefore isolates are not available for susceptibility testing. Antibiotic treatment is often contraindicated and may be detrimental in cases of enteric infections, thus routine susceptibility testing is not recommended. Ashutosh Gonzales MD MICROBIOLOGY Final Result [facility] [address] [place] [address], from Last 3 Months Additional Health Concerns Infection Onset Date Last Indicated CLOSTRIDIUM DIFFICILE 05/26/2025 05/26/2025 Insurance MEDICARE PB ONLY MEDICARE PART B HB ONLY MEDICARE PART A HB ONLY [facility] [place] [address] HC MEDICARE PPS Advance Directives Documents on File Type Date Recorded Patient Principal Strategist Expl anation Healthcare Directive 05/02/2013 12:00 AM A DVANCE DIRECTIVE * Full Code (Latest Code Status on File) Date Activated Date Inactivated Comments 12/03/2024 7:22 PM 12/10/2024 4:42 PM Question Answer Comments Code Status Discussion: Reviewed Preferences * Full Code Date Activated Date Inactivated Comments 03/06/2014 7:28 PM 03/09/2014 5:42 PM Care Teams Building Admin Relationship Specialty Start Date End Date Ashutosh Gonzales MD [address] [place] [address] PCP - General Family Practice 07/21/17 Qiana Huntley RN [address] [facility] [place] [address] Care Connector 12/31/[address] [facility] [place] [address] Care Connector Tenterer 12/31/[address] [address] 07/17/25
--- OUTSIDE RECORDS SUMMARY | 2025-08-24 06:49 | XMS_ITS | Clinical Summary ---
Author Organization 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. For routine questions regarding patient records, call [phone] during business hours, M-F 8:00 AM - 5:00 PM Central Time. Record requests for emergency care only can be directed to [phone] at any time.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 Gender Identity Female 05/06/2021 10:16 AM CDT [...] 3 - Adult catch-up series) 10/05/2010 09/07/2010 Diabetic Eye Exam 07/09/2016 07/09/2015 Diabetes Education 04/25/2018 [...] Additional history exists Potassium Level 05/14/2025 05/14/2024, 070 12/2023, 09/07/2023, Additional history exists Sodium Level 05/14/2025 05/14/2024, 07/0 12/2023, 09/07/2023, Additional history exists COVID-19 Vaccine (2024-2 6 season) 2025 10/06/2023, 03/06/2023, 07/16/2022, Additional history exists Influenza Vaccine (#1) 2025 3, 08/03/2022, 07/24/2021, Additional history exists DTaP,Tdap,and Td Vaccines (4 - Td or Tdap) 08/07/2030 08/07/2020, 09/07/2010, 09/07/2010, Additional history exists Colonoscopy Discontinued 04/25/2013 Colorectal Cancer Screening Discontinued Zoster Vaccines Completed 03/30/2018, 01/04, 01/04/2018, Additional history exists Pneumococcal vaccine (50+ years) Completed 03/07/2023, 10/08/2014, 02/12/2014, Additional history exists RSV vaccine - (32-3 6 weeks) or 50+ years Completed 07/21/2023 Mammogram Discontinued 09/21/2023, 12/2021, [...] 15 MMOLL POWERCHART HXeGFR (MDRD) >60 >=60 [id number] POWERCHART eGFR Black/ >60 >=60 [id number] POWERCHART Glucose 92 70 - 139 MGDL POWERCHART Blood 06/28/2017 11:1 8 AM CDT Christie Moffett Ana MCNEAL, R.N. LAB BLOOD ADD- ON Edited Result - Final POWERCHART NA * BI Breast Screening Bilateral (03/31/2017 9:13 AM CDT) Anatomical Region Laterality Modality Breast Bilateral Mammography 03/31/2017 9:13 AM CDT Addenda Addendum by Amy Rodriguez M.D. on 03/31/2017 9:13 AM CDT RAD^^^OW [place] Mammo Screening w CADD 03/31/2017 09:13:26 Narrative 03/31/2017 11:24 AM CDT Exam: [place] Mammo Screening w/ CADD Indication: screening Comparison: [...] M.D. / ProviderAmy M.D. 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
--- NOTE | 2025-08-24 06:53 | ED.GENADULT ---
HPI - General Adult General Time Seen by Provider: 07:02 <Michael Demarco MD - Last Filed: 08/25/25 00:24> Date Seen: 08/24/25 <Michael Demarco MD - Last Filed: 08/25/25 00:24> Chief complaint: Altered Mental Status <Michael Demarco MD - Last Filed: 08/25/25 00:24> Stated complaint: AMS <Michael Demarco MD - Last Filed: 08/25/25 00:24> Time Seen by Provider: 08/24/25 06:53 <Michael Demarco MD - Last Filed: 08/25/25 00:24> Source: patient, EMS, RN notes reviewed and old records reviewed <Michael Demarco MD - Last Filed: 08/25/25 00:24> Mode of arrival: EMS <Michael Demarco MD - Last Filed: 08/25/25 00:24> Limitations: no limitations and altered mental status <Michael Demarco MD - Last Filed: 08/25/25 00:24> History of Present Illness HPI narrative: 79-year-old female who presents to altered mental status. Per EMS, they were called to patient's care home due to change in behavior, patient reported to be chasing staff at the facility with a walker. Unclear what her baseline is. Patient denies any concerns at this time. <Michael Demarco MD - Last Filed: 08/25/25 00:24> Related Data Home medications: Home Medications ?Medication ?Instructions ?Recorded ?Confirmed blood sugar diagnostic (OneTouch 08/14/22 03/21/24 Verio test strips) vitamins A,C,H-[id number] 2,148 1 tab PO BID 08/01/23 08/24/25 mcg-113 mg-45 mg-17.4 mg tablet (Eye Multivitamin) empagliflozin 10 mg tablet 10 mg PO QAM 03/21/24 08/24/25 (Jardiance) bumetanide 2 mg tablet 2 mg PO DAILY 03/13/25 08/24/25 isosorbide dinitrate 10 mg tablet 10 mg PO TID 03/13/25 08/24/25 sertraline 100 mg tablet 100 mg PO QAM 03/14/25 08/24/25 triamcinolone acetonide 0.1 % 1 applic topical BID itch 04/17/25 08/24/25 topical ointment acetaminophen 500 mg tablet 1,000 mg PO BID 08/24/25 08/24/25 allopurinol 100 mg tablet 200 mg PO DAILY 08/24/25 08/24/25 cetirizine 10 mg tablet 5 mg PO DAILY 08/24/25 08/24/25 cyanocobalamin (vitamin B-12) 1,000 mcg IM Q4W 08/24/25 08/24/25 1,000 mcg/mL injection solution hydralazine 50 mg tablet 50 mg PO TID 08/24/25 08/24/25 melatonin 10 mg capsule 10 mg PO HS PRN 08/24/25 08/24/25 nystatin 100,000 unit/gram topical 1 applic topical BID-TID PRN 08/24/25 08/24/25 powder (Nystop) potassium chloride 20 mEq 20 meq PO DAILY 08/24/25 08/24/25 tablet,extended release(part/cryst) quetiapine 25 mg tablet 25 mg PO TID 08/24/25 08/24/25 <Michael Demarco MD - Last Filed: 08/25/25 00:24> Allergies/adverse reactions: Allergies Allergy/AdvReac Type Severity Reaction Status Date / Time amoxicillin Allergy Unknown Verified 06/03/25 13:34 losartan Allergy Verified 06/03/25 13:34 <Michael Demarco MD - Last Filed: 08/25/25 00:24> [facility] Medical History: Medical History (Updated 08/24/25 @ 15:36 by Gee Roberts MD) Systolic heart failure, chronic ?I50.22 - Chronic systolic (congestive) heart failure (ICD-10) Hypo-osmolality and hyponatremia ?E87.1 - Hypo-osmolality and hyponatremia (ICD-10) Hypoxic ischemic encephalopathy ?P91.60 - Hypoxic ischemic encephalopathy [HIE], unspecified (ICD-10) History of alcohol use disorder ?Z87.898 - Personal history of other specified conditions (ICD-10) Cognitive impairment ?R41.89 - Other symptoms and signs involving cognitive functions and awareness (ICD-10) Age-related physical debility ?R54 - Age-related physical debility (ICD-10) OAB (overactive bladder) ?N32.81 - Overactive bladder (ICD-10) Osteoarthritis of right knee ?M17.11 - Unilateral primary osteoarthritis, right knee (ICD-10) Dysplasia of trochlea of femur ?Q74.1 - Congenital malformation of knee (ICD-10) Pulmonary HTN ?I27.20 - Pulmonary hypertension, unspecified (ICD-10) Lumbar spondylosis ?M47.816 - Spondylosis without myelopathy or radiculopathy, lumbar region (ICD-10) Essential (primary) hypertension ?I10 - Essential (primary) hypertension (ICD-10) Vitamin B deficiency, unspecified ?E53.9 - Vitamin B deficiency, unspecified (ICD-10) Anxiety disorder, unspecified ?F41.9 - Anxiety disorder, unspecified (ICD-10) Gait instability ?R26.81 - Unsteadiness on feet (ICD-10) Vertigo ?R42 - Dizziness and giddiness (ICD-10) Obsessive-compulsive disorder, unspecified ?F42.9 - Obsessive-compulsive disorder, unspecified (ICD-10) Adenomatous colon polyp ?D12.6 - Benign neoplasm of colon, unspecified (ICD-10) Hoarding disorder ?F42.3 - Hoarding disorder (ICD-10) Sleep apnea, unspecified ?G47.30 - Sleep apnea, unspecified (ICD-10) Iron deficiency anemia, unspecified ?D50.9 - Iron deficiency anemia, unspecified (ICD-10) Heart failure, unspecified ?I50.9 - Heart failure, unspecified (ICD-10) Varicose veins of right lower extremity with inflammation ?I83.11 - Varicose veins of right lower extremity with inflammation (ICD-10) Type 2 diabetes mellitus without complications ?E11.9 - Type 2 diabetes mellitus without complications (ICD-10) <Michael Demarco MD - Last Filed: 08/25/25 00:24> Surgical History: Surgical History History of arthroscopy of left shoulder (08/08/14) ?Z98.890 - Other specified postprocedural states (ICD-10) History of total abdominal hysterectomy ?Z90.710 - Acquired absence of both cervix and uterus (ICD-10) <Michael Demarco MD - Last Filed: 08/25/25 00:24> Social History: Social History What is your current living situation?: I presently have a place to live Problems where you live: no known problems Problems where you live details: none In the past 12 months, utilities in danger of being shut off: no In past 12 months, lack of transportation kept you from medical appts, meetings, work, or getting things needed for daily living: no In the past 12 mos, have been you worried that your food would run out before you had money to buy more?: never true In the past 12 mos, the food you bought just didn't last and you didn't have money to buy more?: never true Highest level of school completed/degree received: Bachelor's degree Smoking Status: Former smoker What tobacco products do you use: cigarettes Years smoked: 0.5 Smoking quit date/years: >15 years ago Do you use any of these nicotine containing products: None Second hand tobacco smoke exposure: No How often do you have a drink containing alcohol: never How often do you have six or more drinks on one occasion: Less than monthly AUDIT-C Alcohol total score: 1 Non-prescribed substance use: denies use Caffeine: No How often does anyone, including family, friends and others, physically hurt you: never How often does anyone, including family, friends and others, insult or talk down to you: never How often does anyone, including family, friends and others, threaten you with harm: never How often does anyone, including family, friends and others, scream or curse at you: never service: No <Michael Demarco MD - Last Filed: 08/25/25 00:24> Exam Narrative: Exam Narrative: General: Well-developed and well-nourished, no acute distress Head: Atraumatic and normocephalic Eyes: Pupils are equal reactive, extraocular motions intact, conjunctiva clear ENT: External nose and ears are normal, posterior pharynx without erythema or exudate Neck: No midline cervical tenderness, full spontaneous range of motion the neck, trachea midline, no adenopathy Heart: Regular rate and rhythm no murmurs or thrills Lungs: Tachycardic Abdomen: Soft, nontender, nondistended with active bowel sounds Musculoskeletal: No tenderness, deformity, or edema Neurologic: Awake, alert, oriented x1, no gross focal neurologic deficits, cranial nerves intact as tested Psych: Patient with pressured speech and flight of ideas, redirectable Skin: No rashes <Michael Demarco MD - Last Filed: 08/25/25 00:24> Const: Vital Signs, click to edit/add: Vital Signs - 24 hr 08/24/25 07:06 08/24/25 10:54 Temperature 97.5 F L Pulse Rate [Right Pulse Oximeter] 110 H Respiratory Rate 20 16 Blood Pressure [Ri ght Upper Arm] 139/61 120/49 L Pulse Oximetry 96 97 Oxygen Delivery Me thod Room Air <Michael Demarco MD - Last Filed: 08/25/25 00:24> Vital Signs, click to edit/add: Vital Signs - 24 hr 08/24/25 07:06 08/24/25 10:54 Temperature 97.5 F L Pulse Rate [Right Pulse Oximeter] 110 H Respiratory Rate 20 16 Blood Pressure [Ri ght Upper Arm] 139/61 120/49 L Pulse Oximetry 96 97 Oxygen Delivery Me thod Room Air <Brooks Klein MD - Last Filed: 08/24/25 10:03> Course Course ED Course: Reviewed prior emergency department visit from May 2025 wound patient was seen after a fall, at that time patient wound was noted to have dementia instantly she made abnormal statements and ?appears to be exhibiting dementia. ? Patient presents today from care home for altered mental status, it sounds like she has a history of dementia in today was followed staff from her care home, in the emergency department is initially cooperative but hyperverbal with pressured speech and flight of ideas. No external signs of trauma, heart is regular, lungs are clear, no abdominal tenderness. Labs ordered to evaluate for possible dark medical causes of change in behavior although this may simply be an exacerbation of her underlying dementia. Review of her chart does not show any prior history of psychiatric disorder including bipolar disorder from or schizoaffective disorder. Patient did calm initially will in the department but on lab draw became more agitated, Zyprexa IM ordered. <Michael Demarco MD - Last Filed: 08/25/25 00:24> Vital Signs Vital signs: Initial Vital Signs Temperature 97.5 F L 08/24/25 07:06 Temperature Source Temporal Artery Scan 08/24/25 07:06 Pulse Rate 110 H 08/24/25 07:06 Respiratory Rate 20 08/24/25 07:06 Blood Pressure 139/61 08/24/25 07:06 Blood Pressure Mean 87 08/24/25 07:06 Blood Pressure Position Semi-Fowlers 08/24/25 07:06 Pulse Oximetry 96 08/24/25 07:06 Vital Signs Temperature 97.5 F L 08/24/25 07:06 Pulse Rate 110 H 08/24/25 07:06 Respiratory Rate 20 08/24/25 07:06 Blood Pressure 139/61 08/24/25 07:06 Pulse Oximetry 96 08/24/25 07:06 Temperature 97.7 F 08/24/25 23:02 Pulse Rate 90 08/24/25 23:02 Respiratory Rate 18 08/24/25 23:02 Blood Pressure 125/57 L 08/24/25 23:02 Pulse Oximetry 95 08/24/25 23:02 Oxygen Delivery Method Room Air 08/24/25 23:02 <Michael Demarco MD - Last Filed: 08/25/25 00:24> Initial Vital Signs Temperature 97.5 F L 08/24/25 07:06 Temperature Source Temporal Artery Scan 08/24/25 07:06 Pulse Rate 110 H 08/24/25 07:06 Respiratory Rate 20 08/24/25 07:06 Blood Pressure 139/61 08/24/25 07:06 Blood Pressure Mean 87 08/24/25 07:06 Blood Pressure Position Semi-Fowlers 08/24/25 07:06 Pulse Oximetry 96 08/24/25 07:06 Vital Signs Temperature 97.5 F L 08/24/25 07:06 Pulse Rate 110 H 08/24/25 07:06 Respiratory Rate 20 08/24/25 07:06 Blood Pressure 139/61 08/24/25 07:06 Pulse Oximetry 96 08/24/25 07:06 Temperature 97.7 F 08/24/25 23:02 Pulse Rate 90 08/24/25 23:02 Respiratory Rate 18 08/24/25 23:02 Blood Pressure 125/57 L 08/24/25 23:02 Pulse Oximetry 95 08/24/25 23:02 Oxygen Delivery Method Room Air 08/24/25 23:02 <Brooks Klein MD - Last Filed: 08/24/25 10:03> Medications Administered Medications: Generic Name Dose Route Start Last Admin Trade Name Ruben PRN Reason Stop Dose Admin Acetaminophen 1,000 mg 08/24/25 21:00 08/24/25 20:57 Acetaminophen 500 Mg Tablet PO 1,000 mg BID IVONE Administration Cephalexin HCl 500 mg 08/24/25 21:00 08/24/25 20:58 Cephalexin 500 Mg Capsule PO 08/29/25 20:59 500 mg BID IVONE Administration Hydralazine HCl 50 mg 08/24/25 21:00 08/24/25 21:46 Hydralazine 25 Mg Tablet PO 50 mg TID IVONE Administration Lactated Ringer's 1,000 mls @ 75 mls/hr 08/24/25 21:45 08/24/25 22:57 Lactated Ringers 1000 Ml IV 75 mls/hr .[id number] IVONE Administration Isosorbide Dinitrate 10 mg 08/24/25 21:00 08/24/25 21:47 Isosorbide Dinitrate 10 Mg Tablet PO 10 mg TID IVONE Administration Multivitamins/Minerals 1 tab 08/24/25 21:00 08/24/25 20:58 Multivitamin/Minerals 1 Tablet PO 1 tab BID IVONE Administration Quetiapine Fumarate 25 mg 08/24/25 21:00 08/24/25 20:58 Quetiapine 25 Mg Tablet PO 25 mg TID IVONE Administration Sodium Chloride 5 ml 08/24/25 21:00 08/24/25 20:59 Sodium Chloride 0.9 % (Flush) 10 Ml Syringe IVF 5 ml BID IVONE Administration Triamcinolone Acetonide 1 applic 08/24/25 21:00 08/24/25 20:58 Triamcinolone Acetonide Ointment 0.1 % TOPICAL 1 applic BID IVONE Administration Discontinued Medications Generic Name Dose Route Start Last Admin Trade Name Ruben PRN Reason Stop Dose Admin Ceftriaxone Sodium 1 gm/ 100 mls @ 200 mls/hr 08/24/25 10:01 08/24/25 11:20 Sodium Chloride IVPB 08/24/25 10:02 Infused ONCE ONE Infusion Sodium Chloride 1,000 mls @ 125 mls/hr 08/24/25 15:07 08/24/25 21:55 0.9 % Sodium Chloride 1000 Ml IV 08/24/25 23:06 Infused .Q8H IVONE Infusion Sodium Chloride 1,000 mls @ 500 mls/hr 08/24/25 15:07 08/24/25 20:30 0.9 % Sodium Chloride 1000 Ml IV 08/24/25 17:06 Infused .Q2H IVONE Infusion Olanzapine 5 mg 08/24/25 07:09 08/24/25 07:16 Olanzapine 5 Mg/Ml Inj IM 08/24/25 07:10 5 mg ONCE ONE Administration Quetiapine Fumarate 50 mg 08/24/25 08:25 08/24/25 09:04 Quetiapine 25 Mg Tablet PO 08/24/25 08:26 50 mg ONCE ONE Administration <Michael Demarco MD - Last Filed: 08/25/25 00:24> Generic Name Dose Route Start Last Admin Trade Name Freq PRN Reason Stop Dose Admin Acetaminophen 1,000 mg 08/24/25 21:00 08/24/25 20:57 Acetaminophen 500 Mg Tablet PO 1,000 mg BID IVONE Administration Cephalexin HCl 500 mg 08/24/25 21:00 08/24/25 20:58 Cephalexin 500 Mg Capsule PO 08/29/25 20:59 500 mg BID IVONE Administration Hydralazine HCl 50 mg 08/24/25 21:00 08/24/25 21:46 Hydralazine 25 Mg Tablet PO 50 mg TID IVONE Administration Lactated Ringer's 1,000 mls @ 75 mls/hr 08/24/25 21:45 08/24/25 22:57 Lactated Ringers 1000 Ml IV 75 mls/hr .[id number] IVONE Administration Isosorbide Dinitrate 10 mg 08/24/25 21:00 08/24/25 21:47 Isosorbide Dinitrate 10 Mg Tablet PO 10 mg TID IVONE Administration Multivitamins/Minerals 1 tab 08/24/25 21:00 08/24/25 20:58 Multivitamin/Minerals 1 Tablet PO 1 tab BID IVONE Administration Quetiapine Fumarate 25 mg 08/24/25 21:00 08/24/25 20:58 Quetiapine 25 Mg Tablet PO 25 mg TID IVONE Administration Sodium Chloride 5 ml 08/24/25 21:00 08/24/25 20:59 Sodium Chloride 0.9 % (Flush) 10 Ml Syringe IVF 5 ml BID IVONE Administration Triamcinolone Acetonide 1 applic 08/24/25 21:00 08/24/25 20:58 Triamcinolone Acetonide Ointment 0.1 % TOPICAL 1 applic BID IVONE Administration Discontinued Medications Generic Name Dose Route Start Last Admin Trade Name Ruben PRN Reason Stop Dose Admin Ceftriaxone Sodium 1 gm/ 100 mls @ 200 mls/hr 08/24/25 10:01 08/24/25 11:20 Sodium Chloride IVPB 08/24/25 10:02 Infused ONCE ONE Infusion Sodium Chloride 1,000 mls @ 125 mls/hr 08/24/25 15:07 08/24/25 21:55 0.9 % Sodium Chloride 1000 Ml IV 08/24/25 23:06 Infused .Q8H IVONE Infusion Sodium Chloride 1,000 mls @ 500 mls/hr 08/24/25 15:07 08/24/25 20:30 0.9 % Sodium Chloride 1000 Ml IV 08/24/25 17:06 Infused .Q2H IVONE Infusion Olanzapine 5 mg 08/24/25 07:09 08/24/25 07:16 Olanzapine 5 Mg/Ml Inj IM 08/24/25 07:10 5 mg ONCE ONE Administration Quetiapine Fumarate 50 mg 08/24/25 08:25 08/24/25 09:04 Quetiapine 25 Mg Tablet PO 08/24/25 08:26 50 mg ONCE ONE Administration <Brooks Klein MD - Last Filed: 08/24/25 10:03> Medical Decision Making MDM Narrative Medical decision making narrative: Addendum 8:30 a.m.: Patient was initially not allowing consent to do blood and other modalities. She did get Zyprexa IM. She has been calm. Her reports she has had more delirium over the last 4 5 days. She has stopped her Seroquel and other meds over the last week at least. She stated that ?that gives me more peace?. The patient denies pain injury. She has a history of falls. Given her change in mental status Dr. Hummel ordered a bunch of labs and all orders CT scan of her head. At this time she is consenting to proceed. Will also give her 50 mg Seroquel dose which she has been on the past. Apparently she was doing better when she was on this medication. Her chart was reviewed, she has multiple medical problems. Addendum 10:00 a.m.: Patient has been much more cooperative, we will try and start an IV, she has a CT scan of her head that looks negative. Her creatinine is a little higher than it has been as well as her BUN and she will get some IV fluid here now that she is more cooperative I think we can start an IV, she has a non clean catch UA that shows many bacteria, she does have the left maxillary opacification. Will give her 1 dose of Rocephin here. Will give her 500 mL normal saline. I think given her mental status changes and the fact that this has been a few days I think an observation. Be appropriate. I think restarting her meds would be appropriate. Discussed with hospitalist who accepts. <Brooks Klein MD - Last Filed: 08/24/25 10:03> Lab Data Labs: Lab Results 08/24/25 08/24/25 Range/Units 08:30 08:58 WBC 8.62 (4.50-11.00) K/uL RBC 4.48 (4.00-5.20) m/uL Hgb 13.1 (12.0-16.0) gm/dL Hct 41.0 (33.0-51.0) % MCV 92 (80-100) fL MCH 29 (26-34) pg MCHC 32 (32-36) gm/dL RDW Coeff of Dez 16.0 H (11.5-15.5) % Plt Count 203 (140-440) K/uL Neut % (Auto) 88.4 H (42.0-72.0) % Lymph % (Auto) 4.8 L (20-44) % [place] % (Auto) 5.6 (0.0-11.0) % Eos % (Auto) 0.0 (0.0-7.0) % Baso % (Auto) 0.2 (0.0-3.0) % Neut # (Auto) 7.60 H (1.7-7.0) K/uL Lymph # (Auto) 0.40 L (0.90-2.90) K/uL [place] # (Auto) 0.50 (0.00-0.90) K/UL Eos # (Auto) 0.00 (0.00-0.50) K/uL Baso # (Auto) 0.02 (0.00-0.30) K/uL Abs Immat Gran (auto) 0.09 (0.00-0.30) K/uL Imm/Tot Granulo (auto) 1.0 % VBG pH 7.296 L (7.32-7.43) VBG pCO2 37 L (40-50) mmHG VBG pO2 44.2 (25-47) mmHG VBG HCO3 18 L (21-28) mmol/L Sodium 134 L (135-149) mmol/L Potassium 4.4 (3.6-5.1) mmol/L Chloride 99 (96-114) mmol/L Carbon Dioxide 16 L (20-32) mmol/L Anion Gap 19 H (7-15) mEq/L BUN 42 H (7-30) mg/dL Creatinine 2.2 H (0.5-1.5) mg/dL Estimated Creat Clear 16.40 Estimated GFR 22 ml/min Glucose 84 (60-115) mg/dL Lactate 0.9 (0.5-1.9) mmol/L Calcium 9.5 (8.4-10.6) mg/dL Magnesium 2.0 (1.5-2.6) mg/dL Total Bilirubin 0.8 (0.1-1.5) mg/dL Direct Bilirubin 0.6 H (0.0-0.5) mg/dL AST 35 (12-35) U/L ALT 19 (4-35) U/L Alkaline Phosphatase 121 (40-150) U/L Ammonia < 8.7 L (13.1-30.0) umol/L Troponin I 0.07 H* (0.01-0.04) ng/mL Total Protein 7.1 (6.0-8.3) g/dL Albumin 4.4 (3.3-5.0) g/dL TSH 0.822 (0.270-4.200) uIU/mL Urine Color Yellow (Yellow) Urine Appearance Clear (Clear) Urine pH 5.5 (5.0-8.5) Ur Specific [place] 1.020 (1.000-1.030) Urine Protein 2+ A (Negative) Urine Glucose (UA) Negative (Negative) Urine Ketones 2+ A (Negative) Urine Blood Negative (Negative) Urine Nitrite Negative (Negative) Urine Bilirubin 2+ A (Negative) Urine Urobilinogen 0.2 (0.2-1.0) Ur Leukocyte Esterase Negative (Negative) Urine RBC 0-2 (0-2) Urine WBC 2-5 (0-5) Ur Squamous Epith Cells Moderate A (None-Few) Amorphous Sediment Moderate A (None) Other Sediment HYALINE CASTS (None) Urine Bacteria Many A (None) Urine Mucus Few A (None) Urine Opiates Screen Negative (Negative) Ur Oxycodone Screen Negative (Negative) Urine Methadone Screen Negative (Negative) Ur Barbiturates Screen Negative (Negative) U Tricyclic Antidepress Negative (Negative) Ur Phencyclidine Scrn Negative (Negative) Ur Amphetamines Screen Negative (Negative) U Methamphetamines Scrn Negative (Negative) U Benzodiazepines Scrn Negative (Negative) Urine Cocaine Screen Negative (Negative) U Marijuana (THC) Screen Negative (Negative) Ur Drug Screen Comment See Note Ethyl Alcohol < 0.01 (0.01-0.03) % <Michael Demarco MD - Last Filed: 08/25/25 00:24> Lab Results 08/24/25 08/24/25 Range/Units 08:30 08:58 WBC 8.62 (4.50-11.00) K/uL RBC 4.48 (4.00-5.20) m/uL Hgb 13.1 (12.0-16.0) gm/dL Hct 41.0 (33.0-51.0) % MCV 92 (80-100) fL MCH 29 (26-34) pg MCHC 32 (32-36) gm/dL RDW Coeff of Dez 16.0 H (11.5-15.5) % Plt Count 203 (140-440) K/uL Neut % (Auto) 88.4 H (42.0-72.0) % Lymph % (Auto) 4.8 L (20-44) % [place] % (Auto) 5.6 (0.0-11.0) % Eos % (Auto) 0.0 (0.0-7.0) % Baso % (Auto) 0.2 (0.0-3.0) % Neut # (Auto) 7.60 H (1.7-7.0) K/uL Lymph # (Auto) 0.40 L (0.90-2.90) K/uL [place] # (Auto) 0.50 (0.00-0.90) K/UL Eos # (Auto) 0.00 (0.00-0.50) K/uL Baso # (Auto) 0.02 (0.00-0.30) K/uL Abs Immat Gran (auto) 0.09 (0.00-0.30) K/uL Imm/Tot Granulo (auto) 1.0 % VBG pH 7.296 L (7.32-7.43) VBG pCO2 37 L (40-50) mmHG VBG pO2 44.2 (25-47) mmHG VBG HCO3 18 L (21-28) mmol/L Sodium 134 L (135-149) mmol/L Potassium 4.4 (3.6-5.1) mmol/L Chloride 99 (96-114) mmol/L Carbon Dioxide 16 L (20-32) mmol/L Anion Gap 19 H (7-15) mEq/L BUN 42 H (7-30) mg/dL Creatinine 2.2 H (0.5-1.5) mg/dL Estimated Creat Clear 16.40 Estimated GFR 22 ml/min Glucose 84 (60-115) mg/dL Lactate 0.9 (0.5-1.9) mmol/L Calcium 9.5 (8.4-10.6) mg/dL Magnesium 2.0 (1.5-2.6) mg/dL Total Bilirubin 0.8 (0.1-1.5) mg/dL Direct Bilirubin 0.6 H (0.0-0.5) mg/dL AST 35 (12-35) U/L ALT 19 (4-35) U/L Alkaline Phosphatase 121 (40-150) U/L Ammonia < 8.7 L (13.1-30.0) umol/L Troponin I 0.07 H* (0.01-0.04) ng/mL Total Protein 7.1 (6.0-8.3) g/dL Albumin 4.4 (3.3-5.0) g/dL TSH 0.822 (0.270-4.200) uIU/mL Urine Color Yellow (Yellow) Urine Appearance Clear (Clear) Urine pH 5.5 (5.0-8.5) Ur Specific [place] 1.020 (1.000-1.030) Urine Protein 2+ A (Negative) Urine Glucose (UA) Negative (Negative) Urine Ketones 2+ A (Negative) Urine Blood Negative (Negative) Urine Nitrite Negative (Negative) Urine Bilirubin 2+ A (Negative) Urine Urobilinogen 0.2 (0.2-1.0) Ur Leukocyte Esterase Negative (Negative) Urine RBC 0-2 (0-2) Urine WBC 2-5 (0-5) Ur Squamous Epith Cells Moderate A (None-Few) Amorphous Sediment Moderate A (None) Other Sediment HYALINE CASTS (None) Urine Bacteria Many A (None) Urine Mucus Few A (None) Urine Opiates Screen Negative (Negative) Ur Oxycodone Screen Negative (Negative) Urine Methadone Screen Negative (Negative) Ur Barbiturates Screen Negative (Negative) U Tricyclic Antidepress Negative (Negative) Ur Phencyclidine Scrn Negative (Negative) Ur Amphetamines Screen Negative (Negative) U Methamphetamines Scrn Negative (Negative) U Benzodiazepines Scrn Negative (Negative) Urine Cocaine Screen Negative (Negative) U Marijuana (THC) Screen Negative (Negative) Ur Drug Screen Comment See Note Ethyl Alcohol < 0.01 (0.01-0.03) % <Brooks Klein MD - Last Filed: 08/24/25 10:03> Discharge Plan Discharge Clinical Impression: Delirium <Michael Demarco MD - Last Filed: 08/25/25 00:24> Patient Disposition: Admitted As Observation <Michael Demarco MD - Last Filed: 08/25/25 00:24> Procedures ABG Interpretation ABG Results: 08/24/25 08:30 VBG pH 7.296 L VBG pCO2 37 L VBG pO2 44.2 VBG HCO3 18 L <Michael Demarco MD - Last Filed: 08/25/25 00:24> 08/24/25 08:30 VBG pH 7.296 L VBG pCO2 37 L VBG pO2 44.2 VBG HCO3 18 L <Brooks Klein MD - Last Filed: 08/24/25 10:03>
[2025-08-24 07:06] VITALS: BP 139/61; PULSE 110; RESP 20; TEMP 36.4; O2SAT 96; BMI 28.6
--- NOTE | 2025-08-24 07:10 | ED.NURSE ---
Approached patient to start IV and obtain blood. Explained steps to patient who was talkitive and agreeable. As soon as tourniquet was around arm she sprang up from bed, ripping all monitors and pads from bed. She repeats I am leaving and will not have you do anything else to me. Updated who wrote for 5mg IM Zyprexa. This was given in right thigh with physical hold assistance of security and other RN. Following injection patient appears calming and resting.
[2025-08-24] MEDS: OLANZapine 5 MG/ML inj IM (07:16)
--- NOTE | 2025-08-24 07:53 | CRLHL7_ITS ---
For Patients: As a result of the Century Cures Act, medical imaging exams and procedure reports are released immediately into your electronic medical record. You may view this report before your referring provider. If you have questions, please contact your health care provider. INDICATION: Altered mental status TECHNIQUE: Noncontrast axial CT of the head. Coronal and sagittal reformats. Bone and soft tissue algorithms. COMPARISON: CT head 06/03/2025 FINDINGS: Ventricles and cortical sulci appear stable in configuration. Christian-white matter differentiation is grossly preserved. Similar hypoattenuation throughout the cerebral white matter, typical of chronic microangiopathy, with senescent mineralization changes throughout the basal ganglia regions. No acute intracranial hemorrhage or abnormal intra or extra-axial fluid collection. No midline shift or mass effect, hydrocephalus or herniation. Unremarkable midline structures. Calcific intracranial atherosclerotic plaquing. Intact calvarium. Complete opacification of the left maxillary sinus extending into the left anterior ethmoid air cells. Rightward nasal septal deviation. No mastoid or middle ear effusion. Bilateral lens implants. IMPRESSION: 1. No CT evidence of acute intracranial abnormality, or significant interval change relative to 06/03/2025. 2. Similar mild generalized cerebral volume loss and moderate chronic microangiopathy changes. 3. Complete opacification of the left maxillary sinus and a few adjacent left anterior ethmoid air cells. Please note that all CT scans at this facility use dose modulation, iterative reconstruction, and/or weight-based dosing when appropriate to reduce radiation dose to as low as reasonably achievable. Dictated by Amanda Caldwell MD @ 08/24/2025 9:49:22 AM (Electronically Signed)
[2025-08-24 08:35] LABS: HCO3 VBG 18 mmol/L (21-28); Lactate* 0.9 mmol/L (0.5-1.9); PCO2 VBG 37 mmHG (40-50); PO2 VBG 44.2 mmHG (25-47); pH VBG 7.296 (7.32-7.43)
[2025-08-24 08:40] LABS: Hematocrit* 41.0 % (33.0-51.0); Hemoglobin* 13.1 gm/dL (12.0-16.0); Immature Granulocytes Abs Auto 0.09 K/uL (0.00-0.30); Immature Granulocytes Pct Auto 1.0 %; Mean Corpuscular HGB Conc 32 gm/dL (32-36); Mean Corpuscular Hemoglobin 29 pg (26-34); Mean Corpuscular Volume 92 fL (80-100); RDW Coefficient of Variation % 16.0 % (11.5-15.5); Red Blood Count* 4.48 m/uL (4.00-5.20); White Blood Count* 8.62 K/uL (4.50-11.00)
[2025-08-24 08:56] LABS: Albumin* 4.4 g/dL (3.3-5.0); Chloride* 99 mmol/L (96-114); Lymphocytes Absolute Auto 0.40 K/uL (0.90-2.90); Potassium* 4.4 mmol/L (3.6-5.1); Slide Review Reflex No; Sodium* 134 mmol/L (135-149)
[2025-08-24 08:58] LABS: Blood Urea Nitrogen* 42 mg/dL (7-30); Creatinine* 2.2 mg/dL (0.5-1.5); Est. Creatinine Clearance* 16.40; Estimated Glomerular Filt Rate 22 ml/min
[2025-08-24 08:59] LABS: Alanine Aminotransferase* 19 U/L (4-35); Alkaline Phosphatase* 121 U/L (40-150); Anion Gap 19 mEq/L (7-15); Aspartate Amino Transferase* 35 U/L (12-35); Bilirubin Direct* 0.6 mg/dL (0.0-0.5); Bilirubin Total* 0.8 mg/dL (0.1-1.5); Calcium* 9.5 mg/dL (8.4-10.6); Carbon Dioxide* 16 mmol/L (20-32); Glucose* 84 mg/dL (60-115); Total Protein* 7.1 g/dL (6.0-8.3)
[2025-08-24 09:00] LABS: Ammonia* < 8.7 umol/L (13.1-30.0); Ethanol* < 0.01 % (0.01-0.03)
[2025-08-24 09:04] LABS: Appearance Urine Clear (Clear)
[2025-08-24] MEDS: QUETIAPINE 25 MG TABLET 50 MG PO (09:04)
[2025-08-24 09:13] LABS: Cannabinoid Screen Urine Negative (Negative); Methamphetamines Screen Urine Negative (Negative); Tricyclic Antidepressant Urine Negative (Negative)
[2025-08-24 09:18] LABS: Other Sediment Urine HYALINE CASTS
[2025-08-24 09:35] LABS: TSH With Reflex to FT4* 0.822 uIU/mL (0.270-4.200)
[2025-08-24] MEDS: cefTRIAXone 1 GM in 0.9 % SODIUM CHLORIDE Mini-bag 100 ML IVPB (10:48)
[2025-08-24 10:54] VITALS: BP 120/49; RESP 16; O2SAT 97
[2025-08-24 12:33] VITALS: BP 104/46; PULSE 90; RESP 18; O2SAT 96
--- NOTE | 2025-08-24 15:07 | PM.IMHP1 ---
Assessment and Plan Assessment and plan (1) AMS (altered mental status): Problem comment: - Recurrent, evolving neurocognitive disorder with prior neuro psych testing suggestive of Lewy body dementia verses frontal temporal dementia. - restart atypical antipsychotic quetiapine 25 mg 3 times daily, which medication the patient opted to stop roughly 5 days ago and her condition has worsened since. - new left maxillary sinus opacification since last CT scan of the head in May of this year. Will treat for possible sinusitis. Received a single dose of ceftriaxone 1 g IV in the emergency department. Will start on cephalexin 500 mg twice daily. Status: Acute (2) Delirium: Status: Acute (3) Cognitive impairment: Problem comment: - according to daughter, Irasema, heretofore diagnosed with dementia presumed to be of the Lewy body type verses frontotemporal after recent neuropsychiatric testing done in outpatient setting. Status: Acute (4) Non compliance with medical treatment: Problem comment: - this is not a new condition for the patient, even with her medications being dispensed for her - will restart the quetiapine she had been on previously 25 mg 3 times daily. Did receive a single dose of olanzapine while in the emergency department which calmed her down significantly. - if patient does well overnight anticipate her being discharged back to her assisted living facility. Status: Acute (5) Systolic heart failure, chronic: Problem comment: 08/24/2025: Chronic without exacerbation Status: Acute (6) HFrEF (heart failure with reduced ejection fraction): Problem comment: -Admitted to [place] for acute HFrEF in November 2024 x 8 days Echocardiogram EF 39%, hypokinetic inferior wall, severe MR/TR, moderately reduced systolic RV function. Of note, she also had skin graft done 12/03 for her diabetic foot ulcer. In emergency department hemoglobin 11.7, creatinine 1.3, troponin I 0.02, proBNP 38092. CXR with mild pulmonary edema. Underwent bilateral heart cath on 12/09 demonstrating patent epicardial coronary arteries, mild to moderate pulmonary hypertension PA=59/22, mean 30; PW=20; RV=59/13; RA=11; CO = 5.0 L/min (est Maria Elena). Cardiology started hydralazine, isordil. Stress MRI done and showed ischemia in inferior wall. Her angiogram was neg for obstructive CAD, RHC showed mild/moderate pulmonary HTN, etiology of reduced EF thought to be from CPAP non-adherence in the past few months, she was restarted on her CPAP and recommended close follow up with her sleep medicine team. She was discharged on nocturnal oxygen as well. Status: Chronic (7) Sleep apnea, unspecified: Problem comment: ordered CPAP - not compliant - led to admission for CHF in Nov 30 Status: Chronic (8) Stage 3b chronic kidney disease (CKD): Problem comment: - Cr stable. Looking back at her past labs available here, and in the context of her recent hospitalization for heart failure, I believe this is likely her new baseline after being started on several medications for heart failure. Cr is stable. F/u with PCP as outpatient. Status: Acute (9) Type 2 diabetes mellitus without complications: Problem comment: Trulicity, metformin and Jardiance Status: Chronic (10) Essential (primary) hypertension: Status: Chronic (11) Anxiety disorder, unspecified: Status: Chronic (12) Pulmonary HTN: Status: Chronic (13) Gout: Problem comment: On allopurinol Status: Chronic (14) Personal history of diabetic foot ulcer: Status: Chronic (15) OAB (overactive bladder): Status: Chronic Plan 1. Observe overnight as we restart her quetiapine and continue with her other medications as prescribed. 2. Initiated empiric treatment for possible left frontal sinusitis. Received a single dose of ceftriaxone IV in the emergency department. Started on cephalexin p.o. 500 mg b.i.d. She may need to complete 10 day course of the same. 3. If does well overnight will likely be ready to be discharged back to her assisted living Total Time Spent Total Time Spent: 65 minutes Hospitalist- H&P: HPI History of Present Illness Date Seen: 08/24/25 Chief complaint: AMS Narrative: Jessica Meek is a 79 year old woman presents to the emergency department via EMS due to change in behavior. She lives in a memory care unit, [facility]. Patient reportedly has been refusing to take her atypical antipsychotic quetiapine for the past 4-5 days. She is known to have underlying cognitive impairment, here to 4 thought either due to Lewy body dementia versus frontotemporal dementia. Over the last 2-3 days in particular her behaviors have been more difficult to manage, at times patient change shins staff in the facility with her walker. No recent trauma or injury. No recent fevers, rigors, diaphoresis. No recent travel. No recent illnesses. No recent blood loss. Denies other localizing symptoms. Review of Systems Status of ROS: Reports: 10 or more systems reviewed and unremarkable except as noted in History and below Medical Decision Making Medical Decision Making Code Status: Full resuscitation in event of cardiopulmonary demise. Has patient completed a Health Care Directive: No During This Stay, Who Would You Like To Make Decisions For You In The Event You Are Unable To Make Them For Yourself?: Daughter, Irasema, power of traffic law attorney for health, . Irasema prefers to be updated regularly if at all possible on her mother's condition, progress, plans, recommendations. [facility] Medical History (Updated 08/24/25 @ 15:36 by Gee Roberts MD) Systolic heart failure, chronic ?I50.22 - Chronic systolic (congestive) heart failure (ICD-10) Hypo-osmolality and hyponatremia ?E87.1 - Hypo-osmolality and hyponatremia (ICD-10) Hypoxic ischemic encephalopathy ?P91.60 - Hypoxic ischemic encephalopathy [HIE], unspecified (ICD-10) History of alcohol use disorder ?Z87.898 - Personal history of other specified conditions (ICD-10) Cognitive impairment ?R41.89 - Other symptoms and signs involving cognitive functions and awareness (ICD-10) Age-related physical debility ?R54 - Age-related physical debility (ICD-10) OAB (overactive bladder) ?N32.81 - Overactive bladder (ICD-10) Osteoarthritis of right knee ?M17.11 - Unilateral primary osteoarthritis, right knee (ICD-10) Dysplasia of trochlea of femur ?Q74.1 - Congenital malformation of knee (ICD-10) Pulmonary HTN ?I27.20 - Pulmonary hypertension, unspecified (ICD-10) Lumbar spondylosis ?M47.816 - Spondylosis without myelopathy or radiculopathy, lumbar region (ICD-10) Essential (primary) hypertension ?I10 - Essential (primary) hypertension (ICD-10) Vitamin B deficiency, unspecified ?E53.9 - Vitamin B deficiency, unspecified (ICD-10) Anxiety disorder, unspecified ?F41.9 - Anxiety disorder, unspecified (ICD-10) Gait instability ?R26.81 - Unsteadiness on feet (ICD-10) Vertigo ?R42 - Dizziness and giddiness (ICD-10) Obsessive-compulsive disorder, unspecified ?F42.9 - Obsessive-compulsive disorder, unspecified (ICD-10) Adenomatous colon polyp ?D12.6 - Benign neoplasm of colon, unspecified (ICD-10) Hoarding disorder ?F42.3 - Hoarding disorder (ICD-10) Sleep apnea, unspecified ?G47.30 - Sleep apnea, unspecified (ICD-10) Iron deficiency anemia, unspecified ?D50.9 - Iron deficiency anemia, unspecified (ICD-10) Heart failure, unspecified ?I50.9 - Heart failure, unspecified (ICD-10) Varicose veins of right lower extremity with inflammation ?I83.11 - Varicose veins of right lower extremity with inflammation (ICD-10) Type 2 diabetes mellitus without complications ?E11.9 - Type 2 diabetes mellitus without complications (ICD-10) Surgical History History of arthroscopy of left shoulder (08/08/14) ?Z98.890 - Other specified postprocedural states (ICD-10) History of total abdominal hysterectomy ?Z90.710 - Acquired absence of both cervix and uterus (ICD-10) Social History What is your current living situation?: I presently have a place to live Problems where you live: no known problems Problems where you live details: none In the past 12 months, utilities in danger of being shut off: no In past 12 months, lack of transportation kept you from medical appts, meetings, work, or getting things needed for daily living: no In the past 12 mos, have been you worried that your food would run out before you had money to buy more?: never true In the past 12 mos, the food you bought just didn't last and you didn't have money to buy more?: never true Highest level of school completed/degree received: Bachelor's degree Smoking Status: Former smoker What tobacco products do you use: cigarettes Years smoked: 0.5 Smoking quit date/years: >15 years ago Do you use any of these nicotine containing products: None Second hand tobacco smoke exposure: No How often do you have a drink containing alcohol: never How often do you have six or more drinks on one occasion: Less than monthly AUDIT-C Alcohol total score: 1 Non-prescribed substance use: denies use Caffeine: No How often does anyone, including family, friends and others, physically hurt you: never How often does anyone, including family, friends and others, insult or talk down to you: never How often does anyone, including family, friends and others, threaten you with harm: never How often does anyone, including family, friends and others, scream or curse at you: never service: No Meds Home Medications and Allergies Home Medications ?Medication ?Instructions ?Recorded ?Confirmed ?Type blood sugar diagnostic (OneTouch 08/14/22 03/21/24 History Verio test strips) vitamins A,C,W-wayg-epcrdl 2,148 1 tab PO BID 08/01/23 08/24/25 History mcg-113 mg-45 mg-17.4 mg tablet (Eye Multivitamin) empagliflozin 10 mg tablet 10 mg PO QAM 03/21/24 08/24/25 History (Jardiance) bumetanide 2 mg tablet 2 mg PO DAILY 03/13/25 08/24/25 History isosorbide dinitrate 10 mg tablet 10 mg PO TID 03/13/25 08/24/25 History sertraline 100 mg tablet 100 mg PO QAM 03/14/25 08/24/25 History triamcinolone acetonide 0.1 % 1 applic topical BID itch 04/17/25 08/24/25 History topical ointment acetaminophen 500 mg tablet 1,000 mg PO BID 08/24/25 08/24/25 History allopurinol 100 mg tablet 200 mg PO DAILY 08/24/25 08/24/25 History cetirizine 10 mg tablet 5 mg PO DAILY 08/24/25 08/24/25 History cyanocobalamin (vitamin B-12) 1,000 mcg IM Q4W 08/24/25 08/24/25 History 1,000 mcg/mL injection solution hydralazine 50 mg tablet 50 mg PO TID 08/24/25 08/24/25 History melatonin 10 mg capsule 10 mg PO HS PRN 08/24/25 08/24/25 History nystatin 100,000 unit/gram topical 1 applic topical BID-TID PRN 08/24/25 08/24/25 History powder (Nystop) potassium chloride 20 mEq 20 meq PO DAILY 08/24/25 08/24/25 History tablet,extended release(part/cryst) quetiapine 25 mg tablet 25 mg PO TID 08/24/25 08/24/25 History Allergies Allergy/AdvReac Type Severity Reaction Status Date / Time amoxicillin Allergy Unknown Verified 06/03/25 13:34 losartan Allergy Verified 06/03/25 13:34 Exam Narrative: Exam Narrative: I examined patient in her hospital room with her daughter, Irasema, at her side. Alert, oriented to self, and able to be reoriented to time and place. Not oriented to situation. Pleasant, cooperative, articulate. Flight of ideas. Difficult to carry out directed conversation with her. Able to bring her back to topic. Vision and hearing are adequate. No icterus or jaundice. No petechiae, cyanosis, rashes, wounds. Skin is dry with tenting in forearms. Dry buccal mucosa. Breath smells of ketones. Full neck. No JVD or hepatojugular reflux in sitting upright position. No carotid bruits. Lungs are clear to auscultation without wheezing, rhonchi, rales. Chest wall excursions are full. No CVA tenderness. No tenderness to percussion over midline of back. Heart tones with regular rhythm, normal S1-S2, without obvious murmur. No obvious gallops or rubs. PMI is not laterally displaced. Abdomen with active bowel sounds, soft, nontender. Obese. No rebound or guarding. No edema to feet or lower extremities. Palpable pulses upper and lower extremities. No focal motor neurologic deficits. Cranial nerves 3-12 are grossly normal. Const: Vital Signs, click to edit/add: Vital Signs - 24 hr 08/24/25 07:06 08/24/25 10:54 08/24/25 12:33 Temperature 97.5 F L Pulse Rate [Left P ulse Oximeter] 90 Pulse Rate [Right Pulse Oximeter] 110 H Respiratory Rate 20 16 18 Blood Pressure [Ri ght Arm] 104/46 L Blood Pressure [Ri ght Upper Arm] 139/61 120/49 L Pulse Oximetry 96 97 96 Oxygen Delivery Me thod Room Air Room Air Hospitalist - H&P: Result Labs Labs: Short CBC 08/24/25 Range/Units 08:30 WBC 8.62 (4.50-11.00) K/uL Hgb 13.1 (12.0-16.0) gm/dL Hct 41.0 (33.0-51.0) % Plt Count 203 (140-440) K/uL BMP 08/24/25 08:30 Sodium 134 L Potassium 4.4 Chloride 99 Carbon Dioxide 16 L BUN 42 H Creatinine 2.2 H Glucose 84 Calcium 9.5 Cardiac Enzymes 08/24/25 Range/Units 08:30 Troponin I 0.07 H* (0.01-0.04) ng/mL Liver Function 08/24/25 Range/Units 08:30 Total Bilirubin 0.8 (0.1-1.5) mg/dL Direct Bilirubin 0.6 H (0.0-0.5) mg/dL AST 35 (12-35) U/L ALT 19 (4-35) U/L Alkaline Phosphatase 121 (40-150) U/L Albumin 4.4 (3.3-5.0) g/dL Urine 08/24/25 Range/Units 08:58 Urine Color Yellow (Yellow) Urine Appearance Clear (Clear) Urine pH 5.5 (5.0-8.5) Ur Specific [place] 1.020 (1.000-1.030) Urine Protein 2+ A (Negative) Urine Glucose (UA) Negative (Negative) ECG Attestation: I personally reviewed and interpreted this ECG as follows: ECG interpretation date: 08/24/25 Interpretation: Normal sinus rhythm. Right bundle branch block. No acute ischemic changes or infarct pattern. Imaging CT scan - head: Attestation: I have reviewed the pertinent imaging results. Radiologist's impression: 1. No CT evidence of acute intracranial abnormality, or significant interval change relative to 06/03/2025. 2. Similar mild generalized cerebral volume loss and moderate chronic microangiopathy changes. 3. Complete opacification of the left maxillary sinus and a few adjacent left anterior ethmoid air cells - on 06/03/2025 patient only had partial opacification.
--- NOTE | 2025-08-24 19:27 | PC.NURSE ---
The patient is alert to self and place, pleasant with interactions. L forearm IV infusing fluids... noted to be sensitive to lights this afternoon. Incontinent/continent of bladder this shift. Ax1 w/ RW. Complains of pressure in her temples. Alarms are in place, but will call at times. Showered this evening. Appetite is reassuring. Kelly VERAS BSN
[2025-08-24 20:01] VITALS: BP 157/86; PULSE 86; RESP 18; TEMP 36.3; O2SAT 99
[2025-08-24] MEDS: ACETAMINOPHEN 500 MG TABLET 1000 MG PO (20:57)
[2025-08-24] MEDS: MULTIVITAMIN/MINERALS 1 TABLET 1 TAB PO (20:58)
[2025-08-24] MEDS: TRIAMCINOLONE ACETONIDE OINTMENT 0.1 % 1 APPLIC TOPICAL (20:58)
[2025-08-24] MEDS: QUETIAPINE 25 MG TABLET PO (20:58)
[2025-08-24] MEDS: SODIUM CHLORIDE 0.9 % (FLUSH) 10 ML SYRINGE 5 ML IVF (20:59)
[2025-08-24 21:00] VITALS: BP 151/76
[2025-08-24] MEDS: HYDRALAZINE 25 MG TABLET 50 MG PO (21:46)
[2025-08-24] MEDS: ISOSORBIDE DINITRATE 10 MG TABLET PO (21:47)
[2025-08-24] MEDS: LACTATED RINGERS 1000 ML 1,000 ML 75 ML IV (22:57)
[2025-08-24 23:02] VITALS: BP 125/57; PULSE 90; RESP 18; TEMP 36.5; O2SAT 95
[2025-08-25 05:33] VITALS: BP 158/57; PULSE 86; RESP 18; TEMP 36.3; O2SAT 94
[2025-08-25 06:51] LABS: Hematocrit* 35.4 % (33.0-51.0); Hemoglobin* 11.5 gm/dL (12.0-16.0); Mean Corpuscular HGB Conc 33 gm/dL (32-36); Mean Corpuscular Hemoglobin 29 pg (26-34); Mean Corpuscular Volume 90 fL (80-100); Red Blood Count* 3.95 m/uL (4.00-5.20); White Blood Count* 6.35 K/uL (4.50-11.00)
[2025-08-25 06:56] LABS: Lactate* 0.7 mmol/L (0.5-1.9)
[2025-08-25 07:01] LABS: Slide Review Reflex No
[2025-08-25 07:17] LABS: Chloride* 100 mmol/L (96-114); Sodium* 129 mmol/L (135-149)
[2025-08-25 07:18] LABS: Potassium* 3.6 mmol/L (3.6-5.1)
[2025-08-25 07:20] LABS: Blood Urea Nitrogen* 39 mg/dL (7-30); Creatinine* 1.4 mg/dL (0.5-1.5); Est. Creatinine Clearance* 25.77; Estimated Glomerular Filt Rate 38 ml/min
[2025-08-25 07:21] LABS: Anion Gap 7 mEq/L (7-15); Calcium* 8.3 mg/dL (8.4-10.6); Carbon Dioxide* 22 mmol/L (20-32); Glucose* 85 mg/dL (60-115)
--- NOTE | 2025-08-25 07:23 | PC.NURSE ---
End of shift [id number]: Pt is alert and oriented to self and place. Pleasant and cooperative with all cares. Pain managed well with scheduled Tylenol. Fluids running @ 75 ml/hr. Incontinent/continent of bladder. A1 GB W. Bed alarm in place, using call light frequently during the beginning of the shift. Able to sleep for majority of the shift. Call light within reach.
[2025-08-25 08:44] VITALS: BP 127/57; PULSE 82; RESP 14; TEMP 36.3; O2SAT 95
[2025-08-25] MEDS: BUMETANIDE 1 MG TABLET 2 MG PO (08:46)
[2025-08-25] MEDS: MULTIVITAMIN/MINERALS 1 TABLET 1 TAB PO (08:47)
[2025-08-25] MEDS: HYDRALAZINE 25 MG TABLET 50 MG PO (08:47)
[2025-08-25] MEDS: POTASSIUM CHLORIDE 10 MEQ CAPSULE ER 20 MEQ PO (08:47)
[2025-08-25] MEDS: CETIRIZINE HCL 10 MG TABLET 5 MG PO (08:47)
[2025-08-25] MEDS: EMPAGLIFLOZIN 10 MG TABLET PO (08:47)
[2025-08-25] MEDS: ISOSORBIDE DINITRATE 10 MG TABLET PO (08:47)
[2025-08-25] MEDS: SERTRALINE 100 MG TABLET PO (08:47)
[2025-08-25] MEDS: QUETIAPINE 25 MG TABLET PO (08:47)
[2025-08-25] MEDS: ACETAMINOPHEN 500 MG TABLET 1000 MG PO (08:48)
[2025-08-25] MEDS: TRIAMCINOLONE ACETONIDE OINTMENT 0.1 % 1 APPLIC TOPICAL (08:48)
[2025-08-25] MEDS: SODIUM CHLORIDE 0.9 % (FLUSH) 10 ML SYRINGE 5 ML IVF (08:48)
--- NOTE | 2025-08-25 11:02 | PM.DS1 ---
DS: Providers Provider Date Seen: 08/25/25 Date of admission: 08/24/25 11:29 Primary care physician: Ashutosh Gonzales MD Admitting Clinician: Gee Roberts MD Consults: 08/24/25 15:07 Consult to Regulatory Process Manager [CONS] Routine Comment: Reason for Consult:: Discharge Planning Needs Attending Physician on discharge: Vonnie Atkins MD Date of Discharge: 08/25/25 DS: Diagnosis Discharge Diagnosis (1) AMS (altered mental status): Status: Acute Problem details: - Recurrent, evolving neurocognitive disorder with prior neuro psych testing suggestive of Lewy body dementia verses frontal temporal dementia - restarted Quetiapine 25mg TID (Jessica had stopped this approximately 5 days prior to admission and condition has worsened since) - 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, Ceftriaxone IV in ER + Keflex; elected to not treat on d/c after discussion with daughter (asymptomatic, risk of antibiotic side effects) - back to baseline 08/25/25 (2) Acute kidney injury: Status: Acute Problem details: - with mild acidosis, admission creatinine 2.2 on 08/25/25 - presumably prerenal (hypotension, decreased po intake) - normalized with improved BP and treatment with IV fluids - holding BP medications upon discharge with close PCP f/u (3) Goals of care, counseling/discussion: Status: Acute Problem details: - had been evaluated by hospice earlier this year; at that time was not meeting criteria for admission - per staff at her assisted living facility; has had significant weight loss recently and has multiple comorbidities - will request a reassessment by hospice upon discharge, discussed this plan with daughter by phone (4) Cognitive impairment: Status: Acute Problem details: - according to daughter, Irasema, heretofore diagnosed with dementia presumed to be of the Lewy body type verses frontotemporal after recent neuropsychiatric testing done in outpatient setting. (5) Non compliance with medical treatment: Status: Acute Problem details: - this is not a new condition for the patient, even with her medications being dispensed for her - will restart the quetiapine she had been on previously 25mg TID. Received a single dose of olanzapine while in the ER which calmed her down significantly (6) Delirium: Status: Acute (7) Systolic heart failure, chronic: Status: Acute Problem details: 08/24/2025: Chronic without exacerbation (8) HFrEF (heart failure with reduced ejection fraction): Status: Chronic Problem details: -Admitted to [facility] for acute HFrEF in November 2024 x 8 days Echocardiogram EF 39%, hypokinetic inferior wall, severe MR/TR, moderately reduced systolic RV function. Of note, she also had skin graft done 12/03 for her diabetic foot ulcer. In emergency department hemoglobin 11.7, creatinine 1.3, troponin I 0.02, proBNP 49672. CXR with mild pulmonary edema. Underwent bilateral heart cath on 12/09 demonstrating patent epicardial coronary arteries, mild to moderate pulmonary hypertension PA=59/22, mean 30; PW=20; RV=59/13; RA=11; CO = 5.0 L/min (est Maria Elena). Cardiology started hydralazine, isordil. Stress MRI done and showed ischemia in inferior wall. Her angiogram was neg for obstructive CAD, RHC showed mild/moderate pulmonary HTN, etiology of reduced EF thought to be from CPAP non-adherence in the past few months, she was restarted on her CPAP and recommended close follow up with her sleep medicine team. She was discharged on nocturnal oxygen as well. (9) Sleep apnea, unspecified: Status: Chronic Problem details: ordered CPAP - not compliant - led to admission for CHF in Nov 30 (10) Type 2 diabetes mellitus without complications: Status: Chronic Problem details: - continue home medications (11) Essential (primary) hypertension: Status: Chronic Problem details: - has recently been hypotensive (recently had Metoprolol discontinued at Cardiology office), likely contributing to WILLIAM - BP estela during stay 120/49 - stopped both Isosorbide and Hydralazine upon discharge given goals of care, risk of hypotension, WILLIAM during stay (12) Anxiety disorder, unspecified: Status: Chronic (13) Pulmonary HTN: Status: Chronic (14) Gout: Status: Chronic Problem details: - allopurinol (15) Personal history of diabetic foot ulcer: Status: Chronic (16) OAB (overactive bladder): Status: Chronic DS: Summary Hospital Course Hospital Course: Jessica ncy room with altered mental status, worsening agitation in the setting of known dementia. Had recently stopped her TID Seroquel, this was restarted upon admission. Also noted to have WILLIAM with creatinine of 2.2 (baseline 1.3-1.4); normalized during stay after treatment with IV fluids. This was presumably prerenal in nature given lower blood pressures and decreased p.o. intake. Recently seen by Cardiology with systolic blood pressure of 80; with Toprol discontinued at that time. Given age, comorbidities, fall risk, WILLIAM, and goals of care, will stop both hydralazine and isosorbide upon discharge as well. Jessica was back to baseline on 08/25/2025 and accepted back by her assisted living facility for return on scheduled Seroquel per previous dosing. Family requesting reassessment by hospice upon discharge; this order was written. Recommend follow-up with PCP in 7-10 days to discuss goals of care, hospice evaluation, follow blood pressure and renal function. Daughter Irasema updated by phone, questions answered. Time Spent with Patient Time attestation: Total time spent providing and/or coordinating discharge services: Time spent: Greater than 30 minutes Specific discharge activities: Medication reconciliation, multidisciplinary team discussion, family updates Exam Narrative: Exam Narrative: GEN: Sleeping in bed, awakens to voice HEENT: EOMIs bilaterally, no scleral icterus CV: RRR, No concerning murmurs R: LCTA bilaterally without concerning wheezing Ext: wwp, no concerning edema Neuro: No focal deficits on limited exam Psych: Appears to have cognitive impairment, not agitated, responding appropriately Const: Vital Signs, click to edit/add: Vital Signs - 24 hr 08/24/25 12:33 08/24/25 20:01 08/24/25 21:00 Temperature 97.4 F L Pulse Rate [Left P ulse Oximeter] 90 86 Respiratory Rate 18 18 Blood Pressure [Ri ght Arm] 104/46 L 157/86 H 151/76 H Pulse Oximetry 96 99 Oxygen Delivery Me thod Room Air Room Air 08/24/25 23:02 08/24/25 23:02 08/25/25 05:33 Temperature 97.7 F 97.3 F L Pulse Rate [Left P ulse Oximeter] 90 86 Respiratory Rate 18 18 18 Blood Pressure [Ri ght Arm] 125/57 L 158/57 H Pulse Oximetry 95 95 94 Oxygen Delivery Me thod Room Air Room Air Room Air 08/25/25 08:44 08/25/25 08:44 Temperature 97.3 F L Pulse Rate [Left P ulse Oximeter] 82 Respiratory Rate 14 14 Blood Pressure [Ri ght Arm] 127/57 L Pulse Oximetry 95 95 Oxygen Delivery Me thod Room Air Room Air DS: Data Data Completed and Pending Labs on day of discharge: Labs from last 24 hours 08/25/25 05:53 WBC 6.35 RBC 3.95 L Hgb 11.5 L Hct 35.4 MCV 90 MCH 29 MCHC 33 Plt Count 171 Sodium 129 L Potassium 3.6 Chloride 100 Carbon Dioxide 22 Anion Gap 7 BUN 39 H Creatinine 1.4 Estimated Creat Clear 25.77 Estimated GFR 38 Glucose 85 Lactate 0.7 Calcium 8.3 L Preliminary micro results at discharge 08/24/25 08:58 Urine Culture - Preliminary Urine,Clean Catch < 50,000 COL/ML MIXED GRAM POSITIVE SOL ISOLATED NO FURTHER WORKUP Discharge Plan Discharge Disposition: [facility] Date of Admission: 08/24/25 11:29 Attending Provider on Discharge: Vonnie Atkins Primary Care Provider: Ashutosh Gonzales Condition: Improved Anticipated Discharge Date/Time: 08/25/25 10:53 Discharge Medications: Continued Jardiance 10 mg tablet 10 mg PO QAM Eye Multivitamin 2,148 mcg-113 mg-45 mg-17.4mg tablet 1 tab PO BID Rx Instructions: administer with AM and PM meals bumetanide 2 mg tablet 2 mg PO DAILY sertraline 100 mg tablet 100 mg PO QAM triamcinolone acetonide 0.1 % ointment 1 applic topical BID quetiapine 25 mg tablet 25 mg PO TID allopurinol 100 mg tablet 200 mg PO DAILY potassium chloride 20 mEq tablet,ER particles/crystals 20 meq PO DAILY nystatin [Nystop] 100,000 unit/gram powder 1 applic topical BID-TID PRN cetirizine 10 mg tablet 5 mg PO DAILY acetaminophen 500 mg tablet 1,000 mg PO BID cyanocobalamin (vitamin B-12) 1,000 mcg/mL solution 1,000 mcg IM Q4W melatonin 10 mg capsule 10 mg PO HS PRN (DME) OneTouch Verio test strips Strip MISCELLANEOUS Patient Comments: USE TO TEST BLOOD SUGARS TWICE DAILY Discontinued isosorbide dinitrate 10 mg tablet 10 mg PO TID hydralazine 50 mg tablet 50 mg PO TID Discharge Orders: Discharge Order (Routine); Ordered 08/25/25 Ordered By: Vonnie Atkins Additional Instructions: We are STOPPING your Hydralazine and Isosorbide given low blood pressures and Kidney injury (which resolved as your blood pressure improved). It is okay to have higher blood pressures (150-160/90) given your age and comorbidities. Reasonable to have another hospice evaluation given weight loss and other medical problems. Activity Level: No strenuous activity Discharge Diet: Regular Follow Up Appointments: Ashutosh Gonzales MD [Primary Care Provider, [facility]] Referral Note: hospital f/u 7-10 days Forms: [facility] Info Instructions Admit to: Assisted Living Discharge Potential: Poor Length of Stay: >90 days Can use facility standing orders?: Yes Code Status: Full Code Rehab Potential: Poor Lab Orders: Recommend BMP 7-[address] Gonzales's appt Hospice Evaluate and Admit: Recommend Hospice evaluation given dementia, weight loss, HFrEF, DM2 Orders are good >30 days: Yes Signature: Vonnie Atkins MD
--- NOTE | 2025-08-25 12:54 | PC.NURSE ---
Pt. discharged to [facility]. [id number] report given to Nurse Corinne at [facility].
--- NOTE | 2025-08-25 14:16 | PC.SOCIAL ---
Addendum entered and electronically signed by Candida Vera LCSW 08/25/25 14:23: RAMONA faxed orders to Corinne at [phone]. Original Note: Discharge planning: RAMONA called RN, Corinne, at [facility] -[phone]- and left a vm requesting a call back regarding when patient could return. RAMONA spoke with Corinne who states that patient can return at any time and asked about changes to meds. RAMONA explained she would get back to her about this. Corinne also inquired about if hospice was in the discussion at all as patient received a referral from her PCP, but [facility] wouldn't open. RAMONA explained she hadn't heard about this but will also check with the provider. RAMONA updated Corinne that some meds had been discontinued, but none had been added. RAMONA left a voicemail explaining that patient is ready for discharge and [facility] will be picking up patient around 1245/1300 to bring her back. Provider spoke with family and they preferred [facility] and that will be present for discharge. RAMONA to assist if other needs arise.
--- NOTE | 2025-08-26 14:50 | PC.SOCIAL ---
RAMONA faxed orders to Corinne at [phone]. Original Note: Discharge planning: RAMONA called RN, Corinne, at [facility] and left a vm requesting a call back regarding when patient could return. RAMONA spoke with Corinne who states that patient can return at any time and asked about changes to meds. RAMONA explained she would get back to her about this. Corinne also inquired about if hospice was in the discussion at all as patient received a referral from her PCP, but [facility] wouldn't open. RAMONA explained she hadn't heard about this but will also check with the provider. RAMONA updated Corinne that some meds had been discontinued, but none had been added. RAMONA left a voicemail explaining that patient is ready for discharge and [facility] will be picking up patient around 1245/1300 to bring her back. Provider spoke with family and they preferred [facility] and that will be present for discharge. SW to assist if other needs arise.
== END 2025-08-25 12:49 ==
LOC: ED 10:09 → MEDSURG 11:30
PROVIDERS: Admitting Provider Internal Medicine; Emergency Provider Family Medicine; PCP Family Medicine; Visit Provider Internal Medicine
DX: R41.82 Altered mental status, unspecified (principal); N17.9 Acute kidney failure, unspecified; Z91.148 Patient's other noncompliance with medication regimen for other reason; I50.22 Chronic systolic (congestive) heart failure; E11.9 Type 2 diabetes mellitus without complications; I10 Essential (primary) hypertension; F41.9 Anxiety disorder, unspecified; N32.81 Overactive bladder; I27.20 Pulmonary hypertension, unspecified; M10.9 Gout, unspecified; G47.30 Sleep apnea, unspecified
CPT/HCPCS: 36415; 70450; 80048; 80076; 80306; 81001; 82077; 82140; 82803; 83605; 83735; 84443; 84484; 85025; 85027; 87081; 87086; 93005; 96365; 99285; A9153; A9270; G0378; J0696; J7030; J7120

== ENCOUNTER 2025-08-25 12:43 | Outpatient (CLI) | payer MEDICARE, BC, SELFPAY | END 2025-08-25 12:44 | disposition home or self-care (01) | LOC: AMB 08-26 08:48 | PROVIDERS: PCP Family Medicine; Visit Provider Emergency Medicine Emergency Medical Services | DX: R41.82 Altered mental status, unspecified (principal); N17.9 Acute kidney failure, unspecified | CPT/HCPCS: A0425; A0428 ==

== ENCOUNTER 2025-08-26 12:30 | Outpatient (CLI) | payer MEDICARE, BC, SELFPAY | END 2025-08-26 12:31 | disposition home or self-care (01) | LOC: AMB 19:14 | PROVIDERS: PCP Family Medicine; Visit Provider Emergency Medicine | DX: F91.9 Conduct disorder, unspecified (principal) | CPT/HCPCS: A0425; A0429 ==

== ENCOUNTER 2025-08-26 12:59 | Observation (INO) | payer MEDICARE, BC, SELFPAY ==
[2025-08-26 13:10] VITALS: BP 158/71; PULSE 88; RESP 18; TEMP 36.1; O2SAT 95
--- NOTE | 2025-08-26 13:16 | ED.GENADULT ---
HPI - General Adult General Chief complaint: Psychiatric Problem/Disorder Stated complaint: Mental Health Time Seen by Provider: 08/26/25 13:16 History of Present Illness HPI narrative: pt admitted here this weekend. pt resident at [facility]. staff c/o pt having outbursts and ramming people with walker. locked self in bathroom and trying to throw feces at staff . per ems she walked to ambulance. did arrive with bilateral wrists restrained but removed once in ED. staff said pt not taking medications 79-year-old woman presenting to the emergency department with behavior concerns. Was discharged yesterday after similar difficulties. Now has locked herself in the bathroom and continuing to have mood changes with outbursts and ramming into people with her walker. Attempting to throw feces. Then tried to rip down blinds and tangled in them. Had to be cut away. Has lost 30 lb last month according to her facility (40 lb since March in discussion with family) Discussions have occurred with hospice and reportedly might be accepted now. Behavior much worse over the last 5 days for on certain reasons. Underlying history of dementia. Clarified with staff at memory care unit that has been coaxed into taking prescribed medications regularly contrary to initial report. However is requiring significant effort in can be hours before actually gets the medication in. Date of Discharge: 08/25/25 DS: Diagnosis Discharge Diagnosis (1) AMS (altered mental status): Status: Acute Problem details: - Recurrent, evolving neurocognitive disorder with prior neuro psych testing suggestive of Lewy body dementia verses frontal temporal dementia - restarted Quetiapine 25mg TID (Jessica had stopped this approximately 5 days prior to admission and condition has worsened since) - 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, Ceftriaxone IV in ER + Keflex; elected to not treat on d/c after discussion with daughter (asymptomatic, risk of antibiotic side effects) - back to baseline 08/25/25 (2) Acute kidney injury: Status: Acute Problem details: - with mild acidosis, admission creatinine 2.2 on 08/25/25 - presumably prerenal (hypotension, decreased po intake) - normalized with improved BP and treatment with IV fluids - holding BP medications upon discharge with close PCP f/u (3) Goals of care, counseling/discussion: Status: Acute Problem details: - had been evaluated by hospice earlier this year; at that time was not meeting criteria for admission - per staff at her assisted living facility; has had significant weight loss recently and has multiple comorbidities - will request a reassessment by hospice upon discharge, discussed this plan with daughter by phone (4) Cognitive impairment: Status: Acute Problem details: - according to daughter, Irasema, heretofore diagnosed with dementia presumed to be of the Lewy body type verses frontotemporal after recent neuropsychiatric testing done in outpatient setting. (5) Non compliance with medical treatment: Status: Acute Problem details: - this is not a new condition for the patient, even with her medications being dispensed for her - will restart the quetiapine she had been on previously 25mg TID. Received a single dose of olanzapine while in the ER which calmed her down significantly (6) Delirium: Status: Acute (7) Systolic heart failure, chronic: Status: Acute Problem details: 08/24/2025: Chronic without exacerbation (8) HFrEF (heart failure with reduced ejection fraction): Status: Chronic Problem details: -Admitted to [facility] for acute HFrEF in November 2024 x 8 days Echocardiogram EF 39%, hypokinetic inferior wall, severe MR/TR, moderately reduced systolic RV function. Of note, she also had skin graft done 12/03 for her diabetic foot ulcer. In emergency department hemoglobin 11.7, creatinine 1.3, troponin I 0.02, proBNP 40544. CXR with mild pulmonary edema. Underwent bilateral heart cath on 12/09 demonstrating patent epicardial coronary arteries, mild to moderate pulmonary hypertension PA=59/22, mean 30; PW=20; RV=59/13; RA=11; CO = 5.0 L/min (est Maria Elena). Cardiology started hydralazine, isordil. Stress MRI done and showed ischemia in inferior wall. Her angiogram was neg for obstructive CAD, RHC showed mild/moderate pulmonary HTN, etiology of reduced EF thought to be from CPAP non-adherence in the past few months, she was restarted on her CPAP and recommended close follow up with her sleep medicine team. She was discharged on nocturnal oxygen as well. (9) Sleep apnea, unspecified: Status: Chronic Problem details: ordered CPAP - not compliant - led to admission for CHF in Nov 30 (10) Type 2 diabetes mellitus without complications: Status: Chronic Problem details: - continue home medications (11) Essential (primary) hypertension: Status: Chronic Problem details: - has recently been hypotensive (recently had Metoprolol discontinued at Cardiology office), likely contributing to WILLIAM - BP estela during stay 120/49 - stopped both Isosorbide and Hydralazine upon discharge given goals of care, risk of hypotension, WILLIAM during stay (12) Anxiety disorder, unspecified: Status: Chronic (13) Pulmonary HTN: Status: Chronic (14) Gout: Status: Chronic Problem details: - allopurinol (15) Personal history of diabetic foot ulcer: Status: Chronic (16) OAB (overactive bladder): Status: Chronic Related Data Home Medications ?Medication ?Instructions ?Recorded ?Confirmed blood sugar diagnostic (OneTouch 08/14/22 03/21/24 Verio test strips) vitamins A,C,C-wnwp-isiudo 2,148 1 tab PO BID 08/01/23 08/27/25 mcg-113 mg-45 mg-17.4 mg tablet (Eye Multivitamin) empagliflozin 10 mg tablet 10 mg PO QAM 03/21/24 08/27/25 (Jardiance) bumetanide 2 mg tablet 2 mg PO DAILY 03/13/25 08/27/25 sertraline 100 mg tablet 100 mg PO QAM 03/14/25 08/27/25 triamcinolone acetonide 0.1 % 1 applic topical BID itch 04/17/25 08/27/25 topical ointment acetaminophen 500 mg tablet 1,000 mg PO BID 08/24/25 08/27/25 allopurinol 100 mg tablet 200 mg PO DAILY 08/24/25 08/27/25 cetirizine 10 mg tablet 10 mg PO DAILY 08/24/25 08/27/25 cyanocobalamin (vitamin B-12) 1,000 mcg IM Q4W 08/24/25 08/27/25 1,000 mcg/mL injection solution melatonin 10 mg capsule 10 mg PO HS 08/24/25 08/27/25 nystatin 100,000 unit/gram topical 1 applic topical BID-TID PRN 08/24/25 08/27/25 powder (Nystop) potassium chloride 20 mEq 20 meq PO DAILY 08/24/25 08/27/25 tablet,extended release(part/cryst) Previous Rx's ?Medication ?Instructions ?Recorded Lactobacillus acidophilus 0.5 mg 2,000 mmu cells PO TIDWM 7 days 08/28/25 (100 million cell) tablet #21 tabs doxycycline hyclate 100 mg tablet 100 mg PO BID 7 days #14 tabs 08/28/25 fluticasone propionate 50 1 spray intranasal BID 14 days #16 08/28/25 mcg/actuation nasal grams spray,suspension olanzapine 5 mg disintegrating 5 mg PO DAILY PRN #14 tabs 08/28/25 tablet quetiapine 25 mg tablet 50 mg (2 x 25 mg) PO TID #60 tabs 08/28/25 Allergies Allergy/AdvReac Type Severity Reaction Status Date / Time amoxicillin Allergy Unknown Verified 08/26/25 21:11 losartan Allergy Verified 08/26/25 21:11 Review of Systems Status of ROS: Reports: unobtainable due to mental status [facility] Medical History (Updated 08/27/25 @ 13:28 by Vonnie Atkins MD) History of impulsive behavior ?Z86.59 - Personal history of other mental and behavioral disorders (ICD-10) Systolic heart failure, chronic ?I50.22 - Chronic systolic (congestive) heart failure (ICD-10) Hypo-osmolality and hyponatremia ?E87.1 - Hypo-osmolality and hyponatremia (ICD-10) Hypoxic ischemic encephalopathy ?P91.60 - Hypoxic ischemic encephalopathy [HIE], unspecified (ICD-10) History of alcohol use disorder ?Z87.898 - Personal history of other specified conditions (ICD-10) Cognitive impairment ?R41.89 - Other symptoms and signs involving cognitive functions and awareness (ICD-10) Age-related physical debility ?R54 - Age-related physical debility (ICD-10) OAB (overactive bladder) ?N32.81 - Overactive bladder (ICD-10) Osteoarthritis of right knee ?M17.11 - Unilateral primary osteoarthritis, right knee (ICD-10) Dysplasia of trochlea of femur ?Q74.1 - Congenital malformation of knee (ICD-10) Pulmonary HTN ?I27.20 - Pulmonary hypertension, unspecified (ICD-10) Lumbar spondylosis ?M47.816 - Spondylosis without myelopathy or radiculopathy, lumbar region (ICD-10) Essential (primary) hypertension ?I10 - Essential (primary) hypertension (ICD-10) Vitamin B deficiency, unspecified ?E53.9 - Vitamin B deficiency, unspecified (ICD-10) Anxiety disorder, unspecified ?F41.9 - Anxiety disorder, unspecified (ICD-10) Gait instability ?R26.81 - Unsteadiness on feet (ICD-10) Vertigo ?R42 - Dizziness and giddiness (ICD-10) Obsessive-compulsive disorder, unspecified ?F42.9 - Obsessive-compulsive disorder, unspecified (ICD-10) Adenomatous colon polyp ?D12.6 - Benign neoplasm of colon, unspecified (ICD-10) Hoarding disorder ?F42.3 - Hoarding disorder (ICD-10) Sleep apnea, unspecified ?G47.30 - Sleep apnea, unspecified (ICD-10) Iron deficiency anemia, unspecified ?D50.9 - Iron deficiency anemia, unspecified (ICD-10) Heart failure, unspecified ?I50.9 - Heart failure, unspecified (ICD-10) Varicose veins of right lower extremity with inflammation ?I83.11 - Varicose veins of right lower extremity with inflammation (ICD-10) Type 2 diabetes mellitus without complications ?E11.9 - Type 2 diabetes mellitus without complications (ICD-10) Surgical History History of arthroscopy of left shoulder (08/08/14) ?Z98.890 - Other specified postprocedural states (ICD-10) History of total abdominal hysterectomy ?Z90.710 - Acquired absence of both cervix and uterus (ICD-10) Social History Narrative: Lives in memory care residential facility. Previously had alcohol use disorder and was treated for this in March of 2014. She tells me she still drinking but I think this is unlikely. Code status is full. What is your current living situation?: I presently have a place to live Problems where you live: no known problems Problems where you live details: none In the past 12 months, utilities in danger of being shut off: no In past 12 months, lack of transportation kept you from medical appts, meetings, work, or getting things needed for daily living: no In the past 12 mos, have been you worried that your food would run out before you had money to buy more?: never true In the past 12 mos, the food you bought just didn't last and you didn't have money to buy more?: never true Highest level of school completed/degree received: some college, no degree Smoking Status: Smoker, status unknown Do you use any of these nicotine containing products: None Second hand tobacco smoke exposure: No How often do you have a drink containing alcohol: never How often do you have six or more drinks on one occasion: Less than monthly AUDIT-C Alcohol total score: 1 Non-prescribed substance use: denies use Caffeine: Yes How often does anyone, including family, friends and others, physically hurt you: unable to answer How often does anyone, including family, friends and others, insult or talk down to you: unable to answer How often does anyone, including family, friends and others, threaten you with harm: unable to answer How often does anyone, including family, friends and others, scream or curse at you: unable to answer service: No Exam Narrative: Exam Narrative: Very pleasant, calm, lucid. Speaking easily. scrape on left anterior jacobo. Smiles and closes her eyes. Breathing easily. Lungs are clear. Heart in regular rate and rhythm with ectopic beats I think. Abdomen is soft and nontender. Cranial nerves 2-12 intact. Const: Vital Signs, click to edit/add: Vital Signs - 24 hr 08/26/25 13:10 Temperature 97 F L Pulse Rate [Pulse Oximeter] 88 Respiratory Rate 18 Blood Pressure [Ri ght Upper Arm] 158/71 H Pulse Oximetry 95 Oxygen Delivery Me thod Room Air Documenting provider has reviewed patient's vital signs: yes Course Vital Signs Vital signs: Initial Vital Signs Temperature 97 F L 08/26/25 13:10 Temperature Source Temporal Artery Scan 08/26/25 13:10 Pulse Rate 88 08/26/25 13:10 Respiratory Rate 18 08/26/25 13:10 Blood Pressure 158/71 H 08/26/25 13:10 Blood Pressure Mean 100 08/26/25 13:10 Blood Pressure Position Supine 08/26/25 13:10 Pulse Oximetry 95 08/26/25 13:10 Oxygen Delivery Method Room Air 08/26/25 13:10 Vital Signs Temperature 97 F L 08/26/25 13:10 Pulse Rate 88 08/26/25 13:10 Respiratory Rate 18 08/26/25 13:10 Blood Pressure 158/71 H 08/26/25 13:10 Pulse Oximetry 95 08/26/25 13:10 Oxygen Delivery Method Room Air 08/26/25 13:10 Temperature 97.0 F L 08/28/25 08:52 Pulse Rate 97 08/28/25 08:52 Respiratory Rate 16 08/28/25 08:52 Blood Pressure 164/84 H 08/28/25 08:52 Pulse Oximetry 97 08/28/25 08:52 Oxygen Delivery Method Room Air 08/28/25 08:52 Medications Administered Medications: Generic Name Dose Route Start Last Admin Trade Name Freq PRN Reason Stop Dose Admin Acetaminophen 1,000 mg 08/27/25 09:00 08/28/25 09:00 Acetaminophen 500 Mg Tablet PO 1,000 mg BID IVONE Administration Allopurinol 200 mg 08/27/25 09:00 08/28/25 09:01 Allopurinol 100 Mg Tablet PO 200 mg DAILY IVONE Administration Bumetanide 2 mg 08/27/25 09:00 08/28/25 09:00 Bumetanide 1 Mg Tablet PO 2 mg DAILY IVONE Administration Cetirizine HCl 5 mg 08/27/25 09:00 08/28/25 09:00 Cetirizine Hcl 10 Mg Tablet PO 5 mg DAILY IVONE Administration Doxycycline Hyclate 100 mg 08/27/25 21:00 08/28/25 08:59 Doxycycline Hyclate 100 Mg PO 100 mg BID IVONE Administration Empagliflozin 10 mg 08/27/25 09:00 08/28/25 09:01 Empagliflozin 10 Mg Tablet PO 10 mg QAM IVONE Administration Fluticasone Propionate 1 spray 08/28/25 10:45 08/28/25 08:59 Fluticasone Propionate Nasal NOSTRIL-B 1 spray DAILY IVONE Administration Lactobacillus Acidophilus 1 tab 08/27/25 12:00 08/28/25 09:01 Lactobacillus Acidophilus 1 Tablet PO 1 tab TIDWM IVONE Administration Potassium Chloride 20 meq 08/27/25 09:00 08/28/25 09:00 Potassium Chloride 10 Meq Capsule Er PO 20 meq DAILY IVONE Administration Quetiapine Fumarate 50 mg 08/27/25 09:00 08/28/25 09:00 Quetiapine 25 Mg Tablet PO 50 mg TID IVONE Administration Sertraline HCl 100 mg 08/27/25 09:00 08/28/25 09:01 Sertraline 100 Mg Tablet PO 100 mg QAM IVONE Administration Discontinued Medications Generic Name Dose Route Start Last Admin Trade Name Leoncioq PRN Reason Stop Dose Admin Doxycycline Hyclate 100 mg 08/27/25 10:45 08/27/25 11:30 Doxycycline Hyclate 100 Mg PO 08/27/25 10:46 100 mg ONCE ONE Administration Fluticasone Propionate 1 spray 08/27/25 10:45 08/27/25 10:45 Fluticasone Propionate Nasal NOSTRIL-B 08/27/25 10:46 1 spray ONCE ONE Administration Olanzapine 5 mg 08/26/25 13:30 08/26/25 18:52 Olanzapine 5 Mg Tab.Rapdis PO 08/26/25 13:31 Not Given ONCE ONE Olanzapine 5 mg 08/26/25 17:47 08/26/25 17:52 Olanzapine 5 Mg/Ml Inj IM 08/26/25 17:48 5 mg ONCE ONE Administration Quetiapine Fumarate 25 mg 08/26/25 13:39 08/26/25 14:01 Quetiapine 25 Mg Tablet PO 08/26/25 13:40 25 mg ONCE ONE Administration Quetiapine Fumarate 25 mg 08/26/25 17:44 08/26/25 19:09 Quetiapine 25 Mg Tablet PO 08/26/25 17:45 25 mg ONCE ONE Administration Quetiapine Fumarate 25 mg 08/26/25 18:01 08/26/25 19:09 Quetiapine 25 Mg Tablet PO 08/26/25 18:02 25 mg ONCE ONE Administration Medical Decision Making MDM Narrative Medical decision making narrative: Disposition is going to be a challenge. Perhaps with weight loss is demonstrating some failure to thrive as well. Did discuss this case initially with hospitalist. Would appear that is on rather low dose of Seroquel at this point. Anticipating that will likely need to be admitted but perhaps some period of monitoring can reassure us of effectiveness of medication. Attempted to reach her psychiatrist for medication management discussion. Became more agitated over course of time in the emergency department. Ultimately receiving Seroquel usual dosing of 25 mg shortly after arrival and then 50 mg along with 5 mg of Zyprexa later in the day Did discuss this case also with daughter. Daughter is quite concerned about this abrupt change in behavior and ability of staff to manage. Feel that current situation is unsafe. Discussed also with staff, nurse Sun, at facility. Is available to come in and seems to have away with Jessica but is on side only from 8-4 typically. One nurse aide at this facility overnight. It does appear that Jessica is beyond their ability to manage safely at this time. Discussed with hospitalist again for admission. Thankfully able to accept. Medical Records Medical records reviewed: Yes I reviewed the patient's medical records Lab Data Lab results reviewed: Yes I reviewed the patient's lab results Labs: Lab Results 08/26/25 08/26/25 08/26/25 Range/Units 13:30 14:23 17:46 WBC 6.93 (4.50-11.00) K/uL RBC 4.25 (4.00-5.20) m/uL Hgb 12.2 (12.0-16.0) gm/dL Hct 38.1 (33.0-51.0) % MCV 90 (80-100) fL MCH 29 (26-34) pg MCHC 32 (32-36) gm/dL RDW Coeff of Dez 16.2 H (11.5-15.5) % Plt Count 173 (140-440) K/uL Neut % (Auto) 83.0 H (42.0-72.0) % Lymph % (Auto) 6.5 L (20-44) % Hamlin % (Auto) 8.9 (0.0-11.0) % Eos % (Auto) 0.6 (0.0-7.0) % Baso % (Auto) 0.3 (0.0-3.0) % Neut # (Auto) 5.80 (1.7-7.0) K/uL Lymph # (Auto) 0.50 L (0.90-2.90) K/uL Hamlin # (Auto) 0.60 (0.00-0.90) K/UL Eos # (Auto) 0.04 (0.00-0.50) K/uL Baso # (Auto) 0.02 (0.00-0.30) K/uL Abs Immat Gran (auto) 0.05 (0.00-0.30) K/uL Imm/Tot Granulo (auto) 0.7 % Sodium 137 (135-149) mmol/L Potassium 3.9 (3.6-5.1) mmol/L Chloride 104 (96-114) mmol/L Carbon Dioxide 22 (20-32) mmol/L Anion Gap 11 (7-15) mEq/L BUN 33 H (7-30) mg/dL Creatinine 1.5 (0.5-1.5) mg/dL Estimated GFR 35 ml/min Glucose 94 (60-115) mg/dL Hemoglobin A1c 6.0 H (0-5.6) % Calcium 8.6 (8.4-10.6) mg/dL Total Bilirubin 0.5 (0.1-1.5) mg/dL Direct Bilirubin 0.4 (0.0-0.5) mg/dL AST 32 (12-35) U/L ALT 19 (4-35) U/L Alkaline Phosphatase 106 (40-150) U/L Troponin I 0.05 H (0.01-0.04) ng/mL Total Protein 6.3 (6.0-8.3) g/dL Albumin 3.8 (3.3-5.0) g/dL Urine Color Yellow (Yellow) Urine Appearance Clear (Clear) Urine pH 5.0 (5.0-8.5) Ur Specific Lawrence 1.010 (1.000-1.030) Urine Protein Trace A (Negative) Urine Glucose (UA) Trace A (Negative) Urine Ketones 1+ A (Negative) Urine Blood Negative (Negative) Urine Nitrite Negative (Negative) Urine Bilirubin Negative (Negative) Urine Urobilinogen 0.2 (0.2-1.0) Ur Leukocyte Esterase Negative (Negative) Urine RBC 0-2 (0-2) Urine WBC 0-2 (0-5) Ur Squamous Epith Cells Few (None-Few) Urine Bacteria None (None) Salicylates < 1.0 L (1.0-10) mg/dL Urine Opiates Screen Negative (Negative) Ur Oxycodone Screen Negative (Negative) Urine Methadone Screen Negative (Negative) Acetaminophen < 10.0 (10.0-30.0) ug/mL Ur Barbiturates Screen Negative (Negative) U Tricyclic Antidepress POSITIVE A (Negative) Ur Phencyclidine Scrn Negative (Negative) Ur Amphetamines Screen Negative (Negative) U Methamphetamines Scrn Negative (Negative) U Benzodiazepines Scrn Negative (Negative) Urine Cocaine Screen Negative (Negative) U Marijuana (THC) Screen Negative (Negative) Ur Drug Screen Comment See Note Ethyl Alcohol < 0.01 (0.01-0.03) % Discharge Plan Discharge Clinical Impression: Dementia with agitation, Weight loss, Adult failure to thrive Patient Disposition: Admitted As Observation
[2025-08-26] MEDS: QUETIAPINE 25 MG TABLET PO ×3 (14:01→19:09)
[2025-08-26 14:39] LABS: Hematocrit* 38.1 % (33.0-51.0); Hemoglobin* 12.2 gm/dL (12.0-16.0); Immature Granulocytes Abs Auto 0.05 K/uL (0.00-0.30); Immature Granulocytes Pct Auto 0.7 %; Mean Corpuscular HGB Conc 32 gm/dL (32-36); Mean Corpuscular Hemoglobin 29 pg (26-34); Mean Corpuscular Volume 90 fL (80-100); RDW Coefficient of Variation % 16.2 % (11.5-15.5); Red Blood Count* 4.25 m/uL (4.00-5.20); White Blood Count* 6.93 K/uL (4.50-11.00)
[2025-08-26 14:42] LABS: Lymphocytes Absolute Auto 0.50 K/uL (0.90-2.90); Slide Review Reflex No
[2025-08-26 14:43] LABS: Albumin* 3.8 g/dL (3.3-5.0); Chloride* 104 mmol/L (96-114); Sodium* 137 mmol/L (135-149)
[2025-08-26 14:44] LABS: Potassium* 3.9 mmol/L (3.6-5.1)
[2025-08-26 14:46] LABS: Alanine Aminotransferase* 19 U/L (4-35); Anion Gap 11 mEq/L (7-15); Aspartate Amino Transferase* 32 U/L (12-35); Blood Urea Nitrogen* 33 mg/dL (7-30); Calcium* 8.6 mg/dL (8.4-10.6); Carbon Dioxide* 22 mmol/L (20-32); Creatinine* 1.5 mg/dL (0.5-1.5); Estimated Glomerular Filt Rate 35 ml/min; Glucose* 94 mg/dL (60-115); Total Protein* 6.3 g/dL (6.0-8.3)
[2025-08-26 14:47] LABS: Alkaline Phosphatase* 106 U/L (40-150); Bilirubin Direct* 0.4 mg/dL (0.0-0.5); Bilirubin Total* 0.5 mg/dL (0.1-1.5)
[2025-08-26 14:49] LABS: Acetaminophen* < 10.0 ug/mL (10.0-30.0); Ethanol* < 0.01 % (0.01-0.03); Salicylate* < 1.0 mg/dL (1.0-10)
[2025-08-26 15:15] LABS: Cannabinoid Screen Urine Negative (Negative); Methamphetamines Screen Urine Negative (Negative); Tricyclic Antidepressant Urine POSITIVE (Negative)
--- NOTE | 2025-08-26 16:40 | PC.SOCIAL ---
Discharge planning: sheet metal worker supervisor called RITO Sun #[phone] at [facility] [address] where the pt resides and explained to her that hospital ED staff have been trying to get a hold of her to let her know that the pt is ready to return to their facility and has no reason to medically admit to the hospital. Pt has been acting fine/had no behaviors and is taking medication for the ED staff at the hospital. The pt has been acting out at [facility] [address] by refusing to take her medications, not eating, throwing feces, etc. Corinne stated that she was trying to get [facility] to do an intake with the pt, so the pt has more access to medications that may help with her behaviors, but she has not confirmed with hospice if they are available to admit her yet. Pt's family is on board with hospice per RITO Sun at [facility] [address]. sheet metal worker supervisor asked Corinne to please call the nursing staff in the ED at phone number #[phone] to complete the coordination of the pt's discharge from the ED since this worker will be leaving soon for the day. Social work to follow-up as needed.
[2025-08-26] MEDS: OLANZapine 5 MG/ML inj IM (17:52)
[2025-08-26 18:11] LABS: Appearance Urine Clear (Clear)
--- NOTE | 2025-08-26 20:42 | ED.NURSE ---
RN to RN report done. Pt going to bed 243.
[2025-08-26 21:09] VITALS: BP 166/76; PULSE 81; RESP 18; TEMP 37.2; O2SAT 96
[2025-08-26 23:00] VITALS: PULSE 81; RESP 18
--- NOTE | 2025-08-26 23:19 | PM.IMHP1 ---
Assessment and Plan Assessment and plan (1) History of impulsive behavior: Problem comment: She is exhibiting episodes of impulsive disruptive behavior which fluctuates with entirely pleasant and appropriate and cooperative behavior. This does not appear to be primarily simple dementia with delirium but rather frontal temporal dementia or possibly alcohol related degenerative brain disease. Will increase Seroquel for now to see if this is helpful. Psychiatric consultation if possible. Status: Acute (2) Discharge planning issues: Problem comment: Patient's behavioral disturbances are difficult for the staff at her assisted living residence to manage. Consult social media analyst. Status: Acute Plan Admit to the hospital pending appropriate discharge plan. In the meantime work on medication management for fluctuating and impulsive and disruptive behaviors. Total Time Spent Total Time Spent: Total time spent today is 60 minutes in reviewing outside records and coordination of care Hospitalist- H&P: HPI History of Present Illness Time Seen by Provider: 23:19 Date Seen: 08/26/25 Chief complaint: Mental Health Narrative: Jessica Meek is a 79 year old female readmitted to the hospital with behavioral disorder at her memory care facility. Patient is unable to give history of this. The history is abstracted from the medical record. She was hospital hospitalized overnight significant behavioral disturbances. Due to behavioral problems. She has been diagnosed with the neuro cognitive disorder. Features of this include mild frontal lobe dysfunction, perseveration, behavioral disinhibition, apathy compulsive rituals that thick behaviors according. Some features suggest frontotemporal dementia and some suggest Lewy body dementia. She also has visual and auditory hallucinations. March of 2025 she had a [place] score of 23/30. She has had confusion and irritability and poor sleep with some falls. Last week she had stopped taking her medications. Apparently she has been taking her medications in the last 2 days since he was discharged. She is on Seroquel 25 t.i.d. to help may managed behaviors. Despite this her behaviors have been uncontrolled and her assisted living memory care facility is having troubles managing her. Review of Systems Narrative: Patient reports no concerns. History is unreliable. Medical Decision Making Medical Decision Making Has patient completed a Health Care Directive: No [facility] Medical History (Updated 08/26/25 @ 23:41 by Gerald Warren MD) History of impulsive behavior ?Z86.59 - Personal history of other mental and behavioral disorders (ICD-10) Systolic heart failure, chronic ?I50.22 - Chronic systolic (congestive) heart failure (ICD-10) Hypo-osmolality and hyponatremia ?E87.1 - Hypo-osmolality and hyponatremia (ICD-10) Hypoxic ischemic encephalopathy ?P91.60 - Hypoxic ischemic encephalopathy [HIE], unspecified (ICD-10) History of alcohol use disorder ?Z87.898 - Personal history of other specified conditions (ICD-10) Cognitive impairment ?R41.89 - Other symptoms and signs involving cognitive functions and awareness (ICD-10) Age-related physical debility ?R54 - Age-related physical debility (ICD-10) OAB (overactive bladder) ?N32.81 - Overactive bladder (ICD-10) Osteoarthritis of right knee ?M17.11 - Unilateral primary osteoarthritis, right knee (ICD-10) Dysplasia of trochlea of femur ?Q74.1 - Congenital malformation of knee (ICD-10) Pulmonary HTN ?I27.20 - Pulmonary hypertension, unspecified (ICD-10) Lumbar spondylosis ?M47.816 - Spondylosis without myelopathy or radiculopathy, lumbar region (ICD-10) Essential (primary) hypertension ?I10 - Essential (primary) hypertension (ICD-10) Vitamin B deficiency, unspecified ?E53.9 - Vitamin B deficiency, unspecified (ICD-10) Anxiety disorder, unspecified ?F41.9 - Anxiety disorder, unspecified (ICD-10) Gait instability ?R26.81 - Unsteadiness on feet (ICD-10) Vertigo ?R42 - Dizziness and giddiness (ICD-10) Obsessive-compulsive disorder, unspecified ?F42.9 - Obsessive-compulsive disorder, unspecified (ICD-10) Adenomatous colon polyp ?D12.6 - Benign neoplasm of colon, unspecified (ICD-10) Hoarding disorder ?F42.3 - Hoarding disorder (ICD-10) Sleep apnea, unspecified ?G47.30 - Sleep apnea, unspecified (ICD-10) Iron deficiency anemia, unspecified ?D50.9 - Iron deficiency anemia, unspecified (ICD-10) Heart failure, unspecified ?I50.9 - Heart failure, unspecified (ICD-10) Varicose veins of right lower extremity with inflammation ?I83.11 - Varicose veins of right lower extremity with inflammation (ICD-10) Type 2 diabetes mellitus without complications ?E11.9 - Type 2 diabetes mellitus without complications (ICD-10) Surgical History History of arthroscopy of left shoulder (08/08/14) ?Z98.890 - Other specified postprocedural states (ICD-10) History of total abdominal hysterectomy ?Z90.710 - Acquired absence of both cervix and uterus (ICD-10) Social History (Updated 08/26/25 @ 23:36 by Gerald Warren MD) Narrative: Lives in memory care residential facility. Previously had alcohol use disorder and was treated for this in March of 2014. She tells me she still drinking but I think this is unlikely. Code status is full. What is your current living situation?: I presently have a place to live Problems where you live: no known problems Problems where you live details: none In the past 12 months, utilities in danger of being shut off: no In past 12 months, lack of transportation kept you from medical appts, meetings, work, or getting things needed for daily living: no In the past 12 mos, have been you worried that your food would run out before you had money to buy more?: never true In the past 12 mos, the food you bought just didn't last and you didn't have money to buy more?: never true Highest level of school completed/degree received: some college, no degree Smoking Status: Smoker, status unknown Do you use any of these nicotine containing products: None Second hand tobacco smoke exposure: No How often do you have a drink containing alcohol: never How often do you have six or more drinks on one occasion: Less than monthly AUDIT-C Alcohol total score: 1 Non-prescribed substance use: denies use Caffeine: Yes How often does anyone, including family, friends and others, physically hurt you: unable to answer How often does anyone, including family, friends and others, insult or talk down to you: unable to answer How often does anyone, including family, friends and others, threaten you with harm: unable to answer How often does anyone, including family, friends and others, scream or curse at you: unable to answer service: No Meds Home Medications and Allergies Home Medications ?Medication ?Instructions ?Recorded ?Confirmed ?Type blood sugar diagnostic (OneTouch 08/14/22 03/21/24 History Verio test strips) vitamins A,C,F-ouol-zrniod 2,148 1 tab PO BID 08/01/23 08/24/25 History mcg-113 mg-45 mg-17.4 mg tablet (Eye Multivitamin) empagliflozin 10 mg tablet 10 mg PO QAM 03/21/24 08/24/25 History (Jardiance) bumetanide 2 mg tablet 2 mg PO DAILY 03/13/25 08/24/25 History sertraline 100 mg tablet 100 mg PO QAM 03/14/25 08/24/25 History triamcinolone acetonide 0.1 % 1 applic topical BID itch 04/17/25 08/24/25 History topical ointment acetaminophen 500 mg tablet 1,000 mg PO BID 08/24/25 08/24/25 History allopurinol 100 mg tablet 200 mg PO DAILY 08/24/25 08/24/25 History cetirizine 10 mg tablet 5 mg PO DAILY 08/24/25 08/24/25 History cyanocobalamin (vitamin B-12) 1,000 mcg IM Q4W 08/24/25 08/24/25 History 1,000 mcg/mL injection solution melatonin 10 mg capsule 10 mg PO HS PRN 08/24/25 08/24/25 History nystatin 100,000 unit/gram topical 1 applic topical BID-TID PRN 08/24/25 08/24/25 History powder (Nystop) potassium chloride 20 mEq 20 meq PO DAILY 08/24/25 08/24/25 History tablet,extended release(part/cryst) quetiapine 25 mg tablet 25 mg PO TID 08/24/25 08/24/25 History Allergies Allergy/AdvReac Type Severity Reaction Status Date / Time amoxicillin Allergy Unknown Verified 08/26/25 21:11 losartan Allergy Verified 08/26/25 21:11 Exam Narrative: Exam Narrative: She is alert pleasant in no distress. Mood and affect are bright. She is cooperative. Her speech is fluent. She is telling stories about her neighbors for the last few decades which I can corroborate are at least partly true. Head is without trauma. Eyes normal. No facial asymmetry. Oropharynx normal. Neck is supple without mass or adenopathy. Respirations are clear to auscultation. Cardiovascular: S1, S2, regular rate and rhythm. Abdomen: Bowel sounds active. Abdomen is soft without tenderness or mass. Extremities without edema she moves all 4 extremities well. Const: Vital Signs, click to edit/add: Vital Signs - 24 hr 08/26/25 13:10 08/26/25 21:09 08/26/25 21:09 Temperature 97 F L 99 F Pulse Rate [Pulse Oximeter] 88 81 Respiratory Rate 18 18 Blood Pressure [Ri ght Arm] 166/76 H Blood Pressure [Ri ght Upper Arm] 158/71 H Pulse Oximetry 95 96 96 Oxygen Delivery Me thod Room Air Room Air Room Air Documenting provider has reviewed patient's vital signs: yes Hospitalist - H&P: Result Labs Labs: Short CBC 08/26/25 Range/Units 14:23 WBC 6.93 (4.50-11.00) K/uL Hgb 12.2 (12.0-16.0) gm/dL Hct 38.1 (33.0-51.0) % Plt Count 173 (140-440) K/uL BMP 08/26/25 14:23 Sodium 137 Potassium 3.9 Chloride 104 Carbon Dioxide 22 BUN 33 H Creatinine 1.5 Glucose 94 Calcium 8.6 Liver Function 08/26/25 Range/Units 14:23 Total Bilirubin 0.5 (0.1-1.5) mg/dL Direct Bilirubin 0.4 (0.0-0.5) mg/dL AST 32 (12-35) U/L ALT 19 (4-35) U/L Alkaline Phosphatase 106 (40-150) U/L Albumin 3.8 (3.3-5.0) g/dL Urine 08/26/25 Range/Units 17:46 Urine Color Yellow (Yellow) Urine Appearance Clear (Clear) Urine pH 5.0 (5.0-8.5) Ur Specific [place] 1.010 (1.000-1.030) Urine Protein Trace A (Negative) Urine Glucose (UA) Trace A (Negative)
[2025-08-27] VITALS (9 sets, daily range): BP systolic 91–142; BP diastolic 40–80; PULSE 77–105; RESP 16–18; TEMP 36.1–36.8; O2SAT 90–98
[2025-08-27] MEDS: ACETAMINOPHEN 500 MG TABLET 1000 MG PO ×2 (09:07→21:09)
[2025-08-27] MEDS: SERTRALINE 100 MG TABLET PO (09:08)
[2025-08-27] MEDS: QUETIAPINE 25 MG TABLET 50 MG PO ×3 (09:08→21:09)
[2025-08-27] MEDS: POTASSIUM CHLORIDE 10 MEQ CAPSULE ER 20 MEQ PO (09:08)
[2025-08-27] MEDS: EMPAGLIFLOZIN 10 MG TABLET PO (09:09)
[2025-08-27] MEDS: CETIRIZINE HCL 10 MG TABLET 5 MG PO (09:09)
[2025-08-27] MEDS: BUMETANIDE 1 MG TABLET 2 MG PO (09:18)
[2025-08-27] MEDS: DOXYCYCLINE HYCLATE 100 MG PO ×2 (11:30→21:09)
[2025-08-27] MEDS: LACTOBACILLUS ACIDOPHILUS 1 TABLET 1 TAB PO ×2 (11:30→17:33)
--- NOTE | 2025-08-27 13:17 | P.IMPN_ITS ---
Assessment and Plan Assessment and plan (1) Dementia with agitation: Problem comment: - significant decline in the past few months with weakness, weight loss, decreased po intake Status: Acute (2) History of impulsive behavior: Problem comment: - exhibiting episodes of impulsive disruptive behavior which fluctuates with entirely pleasant and appropriate and cooperative behavior - ddx includes frontal temporal dementia, Lewy body dementia, possibly alcohol related degenerative brain disease (recent outpatient NeuroPsych testing) - increased Seroquel from 25mg TID --> 50mg TID on 08/27 Status: Acute (3) Discharge planning issues: Problem comment: - behaviors are limiting regarding disposition; had been referred for hospice evaluation given progressive dementia (weight loss, agitation), severe TR/MR - hospice evaluating and will likely be able to d/c back to [facility] with hospice support when available Status: Acute (4) Sinusitis: Problem comment: - L maxillary sinus, noted 08/24/[address] - during last hospital stay elected not to treat; however, given increase in behaviors it is possible that she is having some sinus discomfort that is increasing behaviors - discussed with daughter Irasema; will treat with Doxycycline and Flonase Status: Acute (5) Weight loss: Problem comment: - in our system, has lost at least 15 kg in the last 5 months (likely more, per daughter) Status: Acute (6) Systolic heart failure, chronic: Problem comment: - chronic HFrEF without evidence of exacerbation - last TTE November 2024: Echocardiogram EF 39%, hypokinetic inferior wall, severe MR/TR, moderately reduced systolic RV function. Status: Acute (7) Cognitive impairment: Problem comment: - according to daughter, Irasema, heretofore diagnosed with dementia presumed to be of the Lewy body type verses frontotemporal after recent neuropsychiatric testing done in outpatient setting Status: Acute (8) Essential (primary) hypertension: Problem comment: - during hospital stay 08/24-08/25, had d/c'd both Isosorbide and Hydralazine given goals of care, risk of hypotension, WILLIAM during stay - continues to have fluctuating blood pressures, estela of 94/50 on 08/27 (presumed progression of severe MR/TR) Status: Chronic Plan - per above - daughter Irasema updated by phone, questions answered Subjective Date Seen: 08/27/25 Interval history: Jessica was admitted to the hospital yesterday for recurrent behavioral issues at her local Memory Care facility. She was admitted here 08/24-08/25 for worsening agitation in the setting of self-discontinuing her 25mg TID Seroquel. She was also found to have WILLIAM (presumably pre renal secondary to hypotension; blood pressure medications discontinued) and left sinusitis on head CT during that stay. Her WILLIAM resolved and we restarted her Seroquel; discharged back to [facility] on 08/25. In the past 24 hours became more agitated and unsafe in her facility. Labs in the emergency room were baseline, her Seroquel was increased from 25mg TID--> 50mg TID. This morning, Jessica has no concerns for hospitalist team. Her behavior is very appropriate. Hospice has been consulted by her Memory Care Assisted Living Facility, given progressive dementia with associated weight loss. Comorbidities include essential HTN, severe MR and TR, gout, DM2, history of ETOH overuse. Exam Narrative: Exam Narrative: GEN: Alert and sitting comfortably in bedside chair HEENT: EOMIs bilaterally, no scleral icterus CV: RRR, No concerning murmurs R: LCTA bilaterally Ext: wwp, no concerning edema Skin: No concerning skin lesions or rashes on exposed skin Neuro: No focal deficits or resting tremor, seen ambulating with a walker in the hallway, no gait abnormalities Psych: Appropriate and interactive, cognitive impairment is evident Const: Vital Signs, click to edit/add: Vital Signs - 24 hr 08/26/25 21:09 08/26/25 21:09 08/26/25 23:00 Temperature 99 F Pulse Rate [Pulse Oximeter] 81 81 Respiratory Rate 18 18 Blood Pressure [Ri ght Arm] 166/76 H Pulse Oximetry 96 96 Oxygen Delivery Me thod Room Air Room Air 08/27/25 03:00 08/27/25 09:06 08/27/25 11:55 Temperature 98.3 F 97.2 F L 96.9 F L Pulse Rate [Pulse Oximeter] 77 96 99 Respiratory Rate 18 16 16 Blood Pressure [Ri ght Arm] 113/80 131/65 94/50 L Pulse Oximetry 92 96 97 Oxygen Delivery Me thod Room Air Room Air Room Air Labs Labs: Laboratory Results - last 24 hr 08/26/25 08/26/25 08/26/25 13:30 14:23 17:46 WBC 6.93 RBC 4.25 Hgb 12.2 Hct 38.1 MCV 90 MCH 29 MCHC 32 RDW Coeff of Dez 16.2 H Plt Count 173 Neut % (Auto) 83.0 H Lymph % (Auto) 6.5 L [place] % (Auto) 8.9 Eos % (Auto) 0.6 Baso % (Auto) 0.3 Neut # (Auto) 5.80 Lymph # (Auto) 0.50 L [place] # (Auto) 0.60 Eos # (Auto) 0.04 Baso # (Auto) 0.02 Abs Immat Gran (auto) 0.05 Imm/Tot Granulo (auto) 0.7 Sodium 137 Potassium 3.9 Chloride 104 Carbon Dioxide 22 Anion Gap 11 BUN 33 H Creatinine 1.5 Estimated GFR 35 Glucose 94 Calcium 8.6 Total Bilirubin 0.5 Direct Bilirubin 0.4 AST 32 ALT 19 Alkaline Phosphatase 106 Troponin I 0.05 H Total Protein 6.3 Albumin 3.8 Urine Color Yellow Urine Appearance Clear Urine pH 5.0 Ur Specific [place] 1.010 Urine Protein Trace A Urine Glucose (UA) Trace A Urine Ketones 1+ A Urine Blood Negative Urine Nitrite Negative Urine Bilirubin Negative Urine Urobilinogen 0.2 Ur Leukocyte Esterase Negative Urine RBC 0-2 Urine WBC 0-2 Ur Squamous Epith Cells Few Urine Bacteria None Salicylates < 1.0 L Urine Opiates Screen Negative Ur Oxycodone Screen Negative Urine Methadone Screen Negative Acetaminophen < 10.0 Ur Barbiturates Screen Negative U Tricyclic Antidepress POSITIVE A Ur Phencyclidine Scrn Negative Ur Amphetamines Screen Negative U Methamphetamines Scrn Negative U Benzodiazepines Scrn Negative Urine Cocaine Screen Negative U Marijuana (THC) Screen Negative Ur Drug Screen Comment See Note Ethyl Alcohol < 0.01 Lab Acknowledgement 08/26/25 23:20 WBC RBC Hgb Hct MCV MCH MCHC RDW Coeff of Dez Plt Count Neut % (Auto) Lymph % (Auto) [place] % (Auto) Eos % (Auto) Baso % (Auto) Neut # (Auto) Lymph # (Auto) [place] # (Auto) Eos # (Auto) Baso # (Auto) Abs Immat Gran (auto) Imm/Tot Granulo (auto) Sodium Potassium Chloride Carbon Dioxide Anion Gap BUN Creatinine Estimated GFR Glucose Calcium Total Bilirubin Direct Bilirubin AST ALT Alkaline Phosphatase Troponin I Total Protein Albumin Urine Color Urine Appearance Urine pH Ur Specific [place] Urine Protein Urine Glucose (UA) Urine Ketones Urine Blood Urine Nitrite Urine Bilirubin Urine Urobilinogen Ur Leukocyte Esterase Urine RBC Urine WBC Ur Squamous Epith Cells Urine Bacteria Salicylates Urine Opiates Screen Ur Oxycodone Screen Urine Methadone Screen Acetaminophen Ur Barbiturates Screen U Tricyclic Antidepress Ur Phencyclidine Scrn Ur Amphetamines Screen U Methamphetamines Scrn U Benzodiazepines Scrn Urine Cocaine Screen U Marijuana (THC) Screen Ur Drug Screen Comment Ethyl Alcohol Lab Acknowledgement Test Added
--- NOTE | 2025-08-27 14:50 | PC.NURSE ---
End of shift note: Patient has been pleasant and cooperative this shift. Took all of her medications whole in pudding. Ambulated in room and halls with SBA, walker and GB today. Voided X2 and had a large incontinent/continent BM. Tolerating a regular diet. Denies nausea. VSS. Does have a sinus infection for which medications were started on today. Scratches on bilateral lower extremeties but scabbed over. No other skin issues. Patient is alert and oriented to self. Intermittently has confusion but otherwise appropriate. Social work involved with placement from here.
--- NOTE | 2025-08-27 15:16 | PC.SOCIAL ---
Discharge planning: RAMONA spoke with Corinne at [facility] who states that they do feel comfortable taking patient back, but would like a better medication plan and hospice in place. RAMONA called Christa with [facility] to determine when they could open with patient. Christa reports that they can open her today or tomorrow but want to ensure there's a good medication plan in place so that the patient doesn't bounce right back to the hospital. Christa asked that their provider and our provider talk. Christa's provider is named Jacque and her number is [phone]. RAMONA provided this to Dr. Atkins. RAMONA spoke with patient's daughter's who are in support of patient returning to [facility] with hospice and a good medication plan in place. Daughter's did talk about exploring LTC options and are interested in [facility]. RAMONA contacted Keon with [facility] to inquire about any openings there and did not provide any patient information. Keon states they have shared female bed openings but never have private rooms. Keon states that [facility] private rooms. RAMONA called Carolyn ([phone]) and informed of the [facility] facilities openings. RAMONA called Christa for an update, however, Christa wasn't available. RAMONA called Christa again who asked if 1300 would work for an admit. RAMONA informed that it should work as long as [place] and family are on board with the time. RAMONA asked that Christa coordinate with them and call RAMONA back for confirmation.
[2025-08-28 03:45] VITALS: BP 155/70; PULSE 95; RESP 18; TEMP 36.6; O2SAT 95
--- NOTE | 2025-08-28 06:44 | PC.NURSE ---
End of shift: Pt pleasant, alert and oriented to self. VSS. Pt restless throughout shift, up multiple times, picking at skin and nails, etc. Staff provided a calm environment, aromatherapy patch and fidgets in attempt to ease pt, seemingly helped situation. Pt stated the urge to urinate with several trips to the bathroom, staff bladder scanned, highest amount being 14 mLs. Pt takes pills crushed in pudding, tolerated well. 1a with walker and gait belt, utilizes call light appropriately. Pt in bed, appears to be resting, call light within reach.?
[2025-08-28 06:54] LABS: HCO3 VBG 26 mmol/L (21-28); Hematocrit* 36.2 % (33.0-51.0); Hemoglobin* 11.6 gm/dL (12.0-16.0); Immature Granulocytes Abs Auto 0.04 K/uL (0.00-0.30); Immature Granulocytes Pct Auto 0.5 %; Mean Corpuscular HGB Conc 32 gm/dL (32-36); Mean Corpuscular Hemoglobin 29 pg (26-34); Mean Corpuscular Volume 91 fL (80-100); PCO2 VBG 46 mmHG (40-50); PO2 VBG 62.6 mmHG (25-47); RDW Coefficient of Variation % 16.3 % (11.5-15.5); Red Blood Count* 3.97 m/uL (4.00-5.20); White Blood Count* 7.72 K/uL (4.50-11.00); pH VBG 7.372 (7.32-7.43)
[2025-08-28 07:02] LABS: Lymphocytes Absolute Auto 0.80 K/uL (0.90-2.90); Slide Review Reflex No
[2025-08-28 07:22] LABS: Chloride* 104 mmol/L (96-114); Potassium* 3.7 mmol/L (3.6-5.1); Sodium* 137 mmol/L (135-149)
[2025-08-28 07:25] LABS: Anion Gap 7 mEq/L (7-15); Blood Urea Nitrogen* 26 mg/dL (7-30); Carbon Dioxide* 26 mmol/L (20-32); Creatinine* 1.3 mg/dL (0.5-1.5); Estimated Glomerular Filt Rate 42 ml/min
[2025-08-28 07:26] LABS: Calcium* 8.6 mg/dL (8.4-10.6); Glucose* 96 mg/dL (60-115)
[2025-08-28 08:52] VITALS: BP 164/84; PULSE 97; RESP 16; TEMP 36.1; O2SAT 97
[2025-08-28] MEDS: DOXYCYCLINE HYCLATE 100 MG PO (08:59)
[2025-08-28] MEDS: QUETIAPINE 25 MG TABLET 50 MG PO (09:00)
[2025-08-28] MEDS: POTASSIUM CHLORIDE 10 MEQ CAPSULE ER 20 MEQ PO (09:00)
[2025-08-28] MEDS: BUMETANIDE 1 MG TABLET 2 MG PO (09:00)
[2025-08-28] MEDS: CETIRIZINE HCL 10 MG TABLET 5 MG PO (09:00)
[2025-08-28] MEDS: ACETAMINOPHEN 500 MG TABLET 1000 MG PO (09:00)
[2025-08-28] MEDS: SERTRALINE 100 MG TABLET PO (09:01)
[2025-08-28] MEDS: LACTOBACILLUS ACIDOPHILUS 1 TABLET 1 TAB PO (09:01)
[2025-08-28] MEDS: EMPAGLIFLOZIN 10 MG TABLET PO (09:01)
--- NOTE | 2025-08-28 11:30 | PC.NURSE ---
Patient toilet and voided. Was incontinent of urine. Declined wanting lunch. Butterscotch pudding provided. Patient feeling anxious but declined wanting any additional medications.
--- NOTE | 2025-08-28 11:56 | PC.SOCIAL ---
Pt. will return to [facility] living today and [facility] will be admitting pt. to hospice at 12:30. Discharge orders have been sent. Pt. is transporting via non-emergency ambulance.
--- NOTE | 2025-08-28 12:10 | PC.NURSE ---
Patient left via EMS non-emergent transport. Report was given to RITO Sun at [facility]. Updated daughter Irasema that patient was enroute as well. When EMS arrived, patient was agreeable to go but stated she needed to use the bathroom. Reminded patient that she had just gone. Patient insisted she needed to go again. Technical Account Manager brought patient into bathroom. Let her sit and gave her a back massage. Encouraged patient to stand so grant writer could help wipe and pull up pad. Patient refused. Patient took off robe and gown and started pulled very hard on walker. Technical Account Manager stabilized walker, called for help. Technical Account Manager gave patient a choice to walk to cart or to recieve IM medication to help calm her down. Patient stated she would walk to cart. While walking to cart, patient took a hard left turn and grabbed the medicine that was next to nurse. Nurse was able to get the medication back and helped patient sit on the cot. Gown was reapplied and patient was seatbelted into EMS cot and calm. EMS then took patient to her home. Reported this information to family. Per Dr. Chu, advised that if patient escalates at her place of living in the future, that consideration should be made to go to a place that offers geriatric psych.
--- NOTE | 2025-08-28 13:36 | P.DS_ITS ---
DS: Providers Provider Date Seen: 08/28/25 Date of admission: 08/26/25 20:44 Primary care physician: Ashutosh Gonzales MD Admitting Clinician: Gerald Warren MD Consults: 08/26/25 23:20 Consult to [employer] [CONS] Routine Comment: Reason for Consult:: Discharge Planning Needs Attending Physician on discharge: Alysa Chu MD [facility] Date of Discharge: 08/28/25 DS: Diagnosis Discharge Diagnosis (1) Dementia with agitation: Status: Acute Problem details: - Recurrent, evolving neurocognitive disorder with prior neuro psych testing suggestive of Lewy body dementia verses frontal temporal dementia - restarted Quetiapine 25mg TID (Beatriz had stopped this approximately 5 days prior to admission and condition has worsened since), discharged on 50mg TID with prn olanzapine 5mg daily - 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, Ceftriaxone IV in ER + Keflex; elected to not treat on d/c after discussion with daughter (asymptomatic, risk of antibiotic side effects) - back to baseline 08/25/25 (2) AMS (altered mental status): Status: Acute Problem details: - significant decline in the past few months with weakness, weight loss, decreased po intake - hospice appropriate for this and for her heart failure, severe valvular cardiomyopathy (3) Acute kidney injury: Status: Resolved Problem details: - with mild acidosis, admission creatinine 2.2 on 08/25/25 - presumably prerenal (hypotension, decreased po intake) - normalized with improved BP and treatment with IV fluids - holding BP medications upon discharge with close PCP f/u (4) Sinusitis: Status: Acute Problem details: - L maxillary sinus, noted 08/24/[address] - during last hospital stay elected not to treat; however, given increase in behaviors it is possible that she is having some sinus discomfort that is increasing behaviors - discussed with daughter Irasema; abx discussed; deferred (5) History of impulsive behavior: Status: Acute Problem details: - exhibiting episodes of impulsive disruptive behavior which fluctuates with entirely pleasant and appropriate and cooperative behavior - ddx includes frontal temporal dementia, Lewy body dementia, possibly alcohol related degenerative brain disease (recent outpatient NeuroPsych testing) - increased Seroquel from 25mg TID --> 50mg TID on 08/27 + prn olanzapine (6) Discharge planning issues: Status: Acute Problem details: - behaviors are limiting regarding disposition; had been referred for hospice evaluation given progressive dementia (weight loss, agitation), severe TR/MR - hospice evaluating and will likely be able to d/c back to [facility] with hospice support when available (7) Weight loss: Status: Acute Problem details: - in our system, has lost at least 15 kg in the last 5 months (likely more, per daughter) (8) HFrEF (heart failure with reduced ejection fraction): Status: Chronic Problem details: -Admitted to [facility] for acute HFrEF in November 2024 x 8 days Echocardiogram EF 39%, hypokinetic inferior wall, severe MR/TR, moderately reduced systolic RV function. Of note, she also had skin graft done 12/03 for her diabetic foot ulcer. In emergency department hemoglobin 11.7, creatinine 1.3, troponin I 0.02, proBNP 45207. CXR with mild pulmonary edema. Underwent bilateral heart cath on 12/09 demonstrating patent epicardial coronary arteries, mild to moderate pulmonary hypertension PA=59/22, mean 30; PW=20; RV=59/13; RA =11; CO = 5.0 L/min (est Maria Elena). Cardiology started hydralazine, isordil. Stress MRI done and showed ischemia in inferior wall. Her angiogram was neg for obstructive CAD, RHC showed mild/moderate pulmonary HTN, etiology of reduced EF thought to be from CPAP non- adherence in the past few months, she was restarted on her CPAP and recommended close follow up with her sleep medicine team. She was discharged on nocturnal oxygen as well. (9) Sleep apnea, unspecified: Status: Chronic Problem details: ordered CPAP - not compliant - led to admission for CHF in Nov 30 (10) Stage 3b chronic kidney disease (CKD): Status: Acute (11) Type 2 diabetes mellitus without complications: Status: Chronic Problem details: - continue home medications (12) Essential (primary) hypertension: Status: Chronic Problem details: - during hospital stay 08/24-08/25, had d/c'd both Isosorbide and Hydralazine given goals of care, risk of hypotension, WILLIAM during stay - continues to have fluctuating blood pressures, estela of 94/50 on 08/27 (presumed progression of severe MR/TR) (13) Pulmonary HTN: Status: Chronic DS: Summary Hospital Course Hospital Course: BRIEF HOSPITAL COURSE: Patient was admitted for 3 days. Synopsis of acute inpatient issues are outlined above. Chronic medical conditions with notable findings outlined above. Beatriz has had multiple admissions this year; the last two are mostly behavioral centered. Our team ultimately uptitrated the Seroquel to 50 mg t.i.d., we also added olanzapine 5 mg daily p.r.n. we treated a UTI. Unclear if this truly was symptomatic or causing her behaviors, likely not. Our team also felt her behaviors were multi factorial, multifaceted. 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 Clearly she also is suffering from a degenerative neuro cognitive disorder similar to what we see in Lewy body or frontal temporal dementia. Her outpatient neuropsych testing would support this as well. We worked with a local hospice agency and she qualified based on her severe cardiomyopathy related to valvular heart disease as well as weight loss and failure to thrive. DISCHARGE MEDICATIONS: See Reconciled list - SIGNIFICANT CHANGES: Seroquel 50 mg t.i.d. Olanzapine 5 mg ODT p.r.n. No other med changes Specific instructions to the patient and follow-up are outlined below. REVIEW OF SYSTEMS No new chest pain or dyspnea Pain controlled No voiding difficulties Tolerating diet challenge PHYSICAL EXAM: CONSTITUTIONAL: Mildly agitated. Patient refused, initially, to cooperate with EMS. She went in the bathroom and disrobed. Ultimately no medications were needed and she was coaxed and cooperated to leave with EMS. GENERAL: Frail. no respiratory distress. VITAL SIGNS: see record. HEENT: Sclerae are anicteric. No petechiae. CARDIAC: rhythm is regular. There is no S3 or rub. No harsh murmurs. Extremities show trace edema with symmetrical pulses. PULM: good air entry with no wheeze. NEURO: Speech is fluent. A brief neurologic exam is negative. SKIN: No rashes, petechiae, concerning changes PSYCHIATRIC: vacillating between calm and cooperative and agitation DISPOSITION: Assisted living, hospice consult today Time spent on discharge 37 minutes. Status at Discharge Functional status at discharge: uses cane/walker Overall status at discharge: patient is not back to baseline Time Spent with Patient Time attestation: Total time spent providing and/or coordinating discharge services: Time spent: Greater than 30 minutes Exam Const: Vital Signs, click to edit/add: Vital Signs - 24 hr 08/27/25 13:52 08/27/25 15:00 08/27/25 15:35 Temperature 97.1 F L Pulse Rate [Pulse Oximeter] 87 105 H 105 H Respiratory Rate 16 18 18 Blood Pressure [Le ft Arm] 94/43 L Blood Pressure [Ri ght Arm] 129/66 91/40 L Pulse Oximetry 93 98 Oxygen Delivery Me thod Room Air Room Air 08/27/25 20:20 08/27/25 23:00 08/27/25 23:52 Temperature 97.6 F 98.2 F Pulse Rate [Pulse Oximeter] 100 83 Respiratory Rate 18 18 18 Blood Pressure [Le ft Arm] 134/70 142/57 H Blood Pressure [Ri ght Arm] Pulse Oximetry 90 98 Oxygen Delivery Me thod Room Air 08/28/25 03:45 08/28/25 08:52 Temperature 97.9 F 97.0 F L Pulse Rate [Pulse Oximeter] 95 97 Respiratory Rate 18 16 Blood Pressure [Le ft Arm] 155/70 H 164/84 H Blood Pressure [Ri ght Arm] Pulse Oximetry 95 97 Oxygen Delivery Me thod Room Air Room Air DS: Data Data Completed and Pending Labs on day of discharge: Labs from last 24 hours 08/28/25 08/27/25 08/26/25 06:20 13:32 14:23 WBC 7.72 RBC 3.97 L Hgb 11.6 L Hct 36.2 MCV 91 MCH 29 MCHC 32 RDW Coeff of Dez 16.3 H Plt Count 168 Neut % (Auto) 75.4 H Lymph % (Auto) 9.8 L [place] % (Auto) 11.4 H Eos % (Auto) 2.5 Baso % (Auto) 0.4 Neut # (Auto) 5.80 Lymph # (Auto) 0.80 L [place] # (Auto) 0.90 Eos # (Auto) 0.19 Baso # (Auto) 0.03 Abs Immat Gran (auto) 0.04 Imm/Tot Granulo (auto) 0.5 VBG pH 7.372 VBG pCO2 46 VBG pO2 62.6 H VBG HCO3 26 Sodium 137 Potassium 3.7 Chloride 104 Carbon Dioxide 26 Anion Gap 7 BUN 26 Creatinine 1.3 Estimated GFR 42 Glucose 96 Hemoglobin A1c 6.0 H Calcium 8.6 Lab Acknowledgement Test Added Discharge Plan Discharge Disposition: Xfer SNF Date of Admission: 08/26/25 20:44 Attending Provider on Discharge: Vonnie Atkins Primary Care Provider: Ashutosh Gonzales Anticipated Discharge Date/Time: 08/28/25 07:31 Discharge Medications: New quetiapine 25 mg Tablet 50 mg PO TID Qty: 60 0RF Rx Instructions: please note dose increase Lactobacillus acidophilus 0.5 mg (100 million cell) Tablet 2,000 mmu cells PO TIDWM 7 Days Qty: 21 0RF Rx Instructions: take probiotics while on antibiotics fluticasone propionate 50 mcg/actuation [place],Suspension 1 spray intranasal BID 14 Days Qty: 16 0RF doxycycline hyclate 100 mg Tablet 100 mg PO BID 7 Days Qty: 14 0RF olanzapine 5 mg tablet,disintegrating 5 mg PO DAILY PRNQty: 14 0RF Rx Instructions: prn agitation Continued Jardiance 10 mg tablet 10 mg PO QAM Eye Multivitamin 2,148 mcg-113 mg-45 mg-17.4mg tablet 1 tab PO BID Rx Instructions: administer with AM and PM meals bumetanide 2 mg tablet 2 mg PO DAILY sertraline 100 mg tablet 100 mg PO QAM triamcinolone acetonide 0.1 % ointment 1 applic topical BID allopurinol 100 mg tablet 200 mg PO DAILY potassium chloride 20 mEq tablet,ER particles/crystals 20 meq PO DAILY nystatin [Nystop] 100,000 unit/gram powder 1 applic topical BID-TID PRN cetirizine 10 mg tablet 10 mg PO DAILY acetaminophen 500 mg tablet 1,000 mg PO BID cyanocobalamin (vitamin B-12) 1,000 mcg/mL solution 1,000 mcg IM Q4W melatonin 10 mg capsule 10 mg PO HS (DME) OneTouch Verio test strips Strip MISCELLANEOUS Patient Comments: USE TO TEST BLOOD SUGARS TWICE DAILY Discontinued quetiapine 25 mg tablet 25 mg PO TID Discharge Orders: Discharge Order (Routine); Ordered 08/28/25 Ordered By: Alysa Chu Additional Instructions: Med changes: - one week of antibiotics (Doxycycline) + probiotics and nasal spray for sinusitis - increased Seroquel to 50mg TID - severe agitation: prn ODT Olanzapine Follow Up Appointments: Ashutosh Gonzales MD [Primary Care Provider, Family Practice] Forms: [facility] Info Instructions Admit to: Assisted Living Discharge Potential: Poor Length of Stay: 30-90 days Code Status: Full Code Hospice Evaluate and Admit: Assessment by [place] [facility] 08/28: dementia with behavioral disturbance + weight loss, CHF with severe MR and TR Orders are good >30 days: Yes Signature: Vonnie Atkins MD
== END 2025-08-28 12:08 ==
LOC: ED 20:30 → MEDSURG 20:46
PROVIDERS: Family Medicine; Admitting Provider Family Medicine; Emergency Provider Family Medicine; PCP Family Medicine; Visit Provider Family Medicine
DX: F03.911 Unspecified dementia, unspecified severity, with agitation (principal); N17.9 Acute kidney failure, unspecified; I50.22 Chronic systolic (congestive) heart failure; J01.00 Acute maxillary sinusitis, unspecified; R63.4 Abnormal weight loss; I27.20 Pulmonary hypertension, unspecified; G47.30 Sleep apnea, unspecified; E11.9 Type 2 diabetes mellitus without complications
CPT/HCPCS: 36415; 80048; 80076; 80143; 80179; 80306; 81001; 82077; 82803; 83036; 84484; 85025; 87086; 99284; 99285; A9270; G0378

== ENCOUNTER 2025-08-28 11:38 | Outpatient (CLI) | payer MEDICARE, BC, SELFPAY | END 2025-08-28 11:39 | disposition home or self-care (01) | LOC: AMB 09-01 05:22 | PROVIDERS: PCP Family Medicine; Visit Provider Family Medicine | DX: F03.911 Unspecified dementia, unspecified severity, with agitation (principal) | CPT/HCPCS: A0425; A0428 ==